=== PATIENT | female | born 1935 | race Caucasian/White ===

== ENCOUNTER → 2017-11-17 16:55 | Outpatient (CLI) | payer MEDICARE, OTHER, SELFPAY ==
[2017-11-17 17:57] LABS: Absolute Neutrophil Count 3.3 X10^3/uL (2.0-7.7); Basophil# 0.03 X10^3/uL; Basophil% 0.5 % (0-1); Eosinophil# 0.21 X10^3/uL; Eosinophils% 3.2 % (0-5); Hematocrit 39.1 % (37-47); Lymphocyte # 2.46 X10^3/ul (4.0); Lymphocyte % 37.3 % (19-41); Mean Corp Hgb Conc 33.2 g/gl (32-36); Mean Corpuscular Hgb 29.7 pg (27.0-32.0); Mean Corpuscular Volume 89.5 fL (81-99); Mean Platelet Vol. 11.9 fl (6.2-12.0); Monocyte# 0.57 X10^3/uL; Monocyte% 8.6 % (0-10); Neutrophil % 50.1 % (47-70); POSITIVE COUNT NO; POSITIVE DIFFERENTIAL NO; POSITIVE MORPHOLOGY NO; Platelet Count 186 K/mm3 (150-450); RBC Distribution Width CV 12.8 % (11.6-14.6); RBC Distribution Width SD 41.7 fl (35.1-43.9); Red Blood Count 4.37 M/mm3 (4.2-5.4); White Blood Count 6.6 K/mm3 (4.4-11.0)
[2017-11-17 18:02] LABS: Vitamin D,25 Hydroxy 16.6 ng/mL (29.95-100.01)
[2017-11-17 18:03] LABS: ALB/GLOB Ratio 0.9 RATIO (0.9-2.4); AST(SGOT) 20 U/L (15-37); Alanine Aminotransfer ALT/SGPT 25 U/L (13-56); Albumin, Serum 3.5 g/dL (3.2-5.0); Alkaline Phosphatase 92 U/L (45-117); Anion Gap 8 (5-15); BUN 27 mg/dL (7-18); Calcium,Total 9.1 mg/dL (8.5-10.1); Chloride 107 mmol/L (98-107); Creatinine, Serum 1.08 mg/dL (0.55-1.02); EST Glomerular Filtration Rate 52 mL/min (>60); Est Glom Filt Rate - Afr Amer 63 mL/min (>60); Globulin 3.8 g/dL (2.2-4.2); Glucose 93 mg/dL (74-106); Potassium 4.4 mmol/L (3.5-5.1); Protein, Total 7.3 g/dL (6.4-8.2); Sodium Level 142 mmol/L (136-145); Thyroid Stim Hormone (TSH) 2.39 uIU/mL (0.358-3.74)
== END ==
PROVIDERS: Family Provider Family Medicine Geriatric Medicine; PCP Family Medicine Geriatric Medicine; Visit Provider Family Medicine Geriatric Medicine
DX: I10 Essential (primary) hypertension (principal); E55.9 Vitamin D deficiency, unspecified
CPT/HCPCS: 36415; 80053; 82306; 84443; 85025

== ENCOUNTER → 2018-05-18 15:23 | Outpatient (CLI) | payer MEDICARE, OTHER, SELFPAY ==
[2018-05-18 17:49] LABS: Absolute Lymphocyte Count 3.67 X10^3/ul (0.83-4.51); Absolute Neutrophil Count 3.5 X10^3/uL (2.0-7.7); Basophil# 0.05 X10^3/uL; Basophil% 0.6 % (0-1); Eosinophil# 0.19 X10^3/uL; Eosinophils% 2.4 % (0-5); Hematocrit 41.6 % (37-47); Hemoglobin 13.6 g/dl (12.0-15.0); Lymphocyte # 3.67 X10^3/ul (4.0); Lymphocyte % 45.6 % (19-41); Mean Corp Hgb Conc 32.7 g/gl (32-36); Mean Corpuscular Hgb 29.5 pg (27.0-32.0); Mean Corpuscular Volume 90.2 fL (81-99); Mean Platelet Vol. 12.6 fl (6.2-12.0); Monocyte# 0.63 X10^3/uL; Monocyte% 7.8 % (0-10); Neutrophil % 43.5 % (47-70); Platelet Count 212 K/mm3 (150-450); RBC Distribution Width CV 12.7 % (11.6-14.6); RBC Distribution Width SD 41.4 fl (35.1-43.9); Red Blood Count 4.61 M/mm3 (4.2-5.4); White Blood Count 8.1 K/mm3 (4.4-11.0)
[2018-05-18 17:52] LABS: POSITIVE COUNT NO; POSITIVE DIFFERENTIAL NO; POSITIVE MORPHOLOGY NO
[2018-05-18 18:13] LABS: Vitamin D,25 Hydroxy 24.8 ng/mL (29.95-100.01)
[2018-05-18 19:07] LABS: AST(SGOT) 20 U/L (15-37); Alanine Aminotransfer ALT/SGPT 30 U/L (13-56); Albumin, Serum 3.6 g/dL (3.2-5.0); Alkaline Phosphatase 95 U/L (45-117); Anion Gap 10 (5-15); BUN 20 mg/dL (7-18); BUN/Creat Ratio 17.2 RATIO (10-20); Calcium,Total 8.9 mg/dL (8.5-10.1); Chloride 104 mmol/L (98-107); Creatinine, Serum 1.16 mg/dL (0.55-1.02); EST Glomerular Filtration Rate 48 mL/min (>60); Est Glom Filt Rate - Afr Amer 58 mL/min (>60); Globulin 3.6 g/dL (2.2-4.2); Glucose 86 mg/dL (74-106); Potassium 4.8 mmol/L (3.5-5.1); Protein, Total 7.2 g/dL (6.4-8.2); Sodium Level 139 mmol/L (136-145); Thyroid Stim Hormone (TSH) 2.13 uIU/mL (0.358-3.74)
== END ==
PROVIDERS: Family Provider Family Medicine Geriatric Medicine; PCP Family Medicine Geriatric Medicine; Visit Provider Family Medicine Geriatric Medicine
DX: E55.9 Vitamin D deficiency, unspecified (principal); I10 Essential (primary) hypertension
CPT/HCPCS: 36415; 80053; 82306; 84443; 85025

== ENCOUNTER → 2018-11-18 | Outpatient (CLI) | payer MEDICARE, OTHER, SELFPAY ==
[2018-11-18 16:44] LABS: Absolute Lymphocyte Count 2.65 X10^3/uL (0.83-4.51); Absolute Neutrophil Count 3.7 X10^3/uL (2.0-7.7); Basophil# 0.06 X10^3/uL; Basophil% 0.8 % (0-1); Eosinophil# 0.18 X10^3/uL; Eosinophils% 2.5 % (0-5); Hematocrit 40.7 % (37-47); Hemoglobin 13.3 g/dL (12.0-15.0); Lymphocyte # 2.65 X10^3/ul (4.0); Lymphocyte % 36.6 % (19-41); Mean Corp Hgb Conc 32.7 g/dL (32-36); Mean Corpuscular Hgb 28.9 pg (27.0-32.0); Mean Corpuscular Volume 88.5 fL (81-99); Mean Platelet Vol. 11.5 fl (6.2-12.0); Monocyte# 0.63 X10^3/uL; Monocyte% 8.7 % (0-10); NRBC Flagged by Analyzer 0 % (0-5); Neutrophil % 51.1 % (47-70); Platelet Count 208 K/mm3 (150-450); RBC Distribution Width CV 12.9 % (11.6-14.6); RBC Distribution Width SD 41.7 fl (35.1-43.9); White Blood Count 7.2 K/mm3 (4.4-11.0)
[2018-11-18 17:12] LABS: Vitamin D,25 Hydroxy 17.2 ng/mL (29.95-100.01)
[2018-11-18 17:13] LABS: ALB/GLOB Ratio 0.9 RATIO (0.9-2.4); AST(SGOT) 30 U/L (15-37); Alanine Aminotransfer ALT/SGPT 48 U/L (13-56); Albumin, Serum 3.3 g/dL (3.2-5.0); Alkaline Phosphatase 108 U/L (45-117); Anion Gap 5 (5-15); BUN 19 mg/dL (7-18); BUN/Creat Ratio 17.1 RATIO (10-20); Calcium,Total 8.8 mg/dL (8.5-10.1); Chloride 105 mmol/L (98-107); Creatinine, Serum 1.11 mg/dL (0.55-1.02); EST Glomerular Filtration Rate 50 mL/min (>60); Est Glom Filt Rate - Afr Amer 60 mL/min (>60); Globulin 3.8 g/dL (2.2-4.2); Glucose 90 mg/dL (74-106); Potassium 4.4 mmol/L (3.5-5.1); Protein, Total 7.1 g/dL (6.4-8.2); Sodium Level 135 mmol/L (136-145); Thyroid Stim Hormone (TSH) 3.48 uIU/mL (0.358-3.74)
== END | disposition home or self-care (01) ==
LOC: POLAB3 13:17
PROVIDERS: Family Provider Family Medicine Geriatric Medicine; PCP Family Medicine Geriatric Medicine; Visit Provider Family Medicine Geriatric Medicine
DX: E55.9 Vitamin D deficiency, unspecified (principal); I10 Essential (primary) hypertension
CPT/HCPCS: 36415; 80053; 82306; 84443; 85025

== ENCOUNTER 2019-01-11 12:46 | Emergency (ER) | payer MEDICARE, OTHER, SELFPAY ==
[2019-01-11 12:46] VITALS: BP 199/89; PULSE 79; RESP 16; TEMP 36.6; O2SAT 95; BMI 37.5
--- NOTE | 2019-01-11 13:42 | ED.VISSUMM ---
- ER Visit Summary Date of Service: 01/11/19 Chief Complaint: Hand laceration History of Present Illness: The patient is a 83 F who presents the emergency department with a left hand laceration. Patient was using electric saw to cut shrubbery on front of her house. She touched the blade while the blades are still running. She notes lacerations to the left ring finger and left middle finger. Last tetanus shot was in the last 5 years Physical Examination: Afebrile vital signs stable There is 2 lacerations to the left index finger. One is 1 cm the other is 2 cm. They are actively bleeding. Neurovascular intact distal. Tendon function appears normal There is a T-shaped 1 cm laceration. To the left middle finger over the distal phalanx. There is no active bleeding. Neurovascular intact tendon function normal. Emergency Department Course and Treatment: Wounds were locally anesthetized using 1% lidocaine with epinephrine. Only small amount was needed less than 1 cc to anesthetize the area. The index finger had a total of 6 simple interrupted Ethilon sutures placed. The middle finger had a total of 2 simple interrupted Ethilon sutures placed. Wound care discussed with patient. Follow-up 7 to 10 days for suture removal Impression: 1. Left middle finger 1 cm laceration with repair 2. Left index finger 2 cm laceration with repair 3. Left index finger laceration 1 cm with repair This note was generated with [employer] dictation software. It may contain incorrect words, spelling, and punctuation that were not noted in review of the chart prior to signing ED Disposition - Plan for ED Patient: Disposition: Home or Assisted Living Instructions: LACERATION, Hand Referrals: Neville Serrano Chi, MD [Primary Care Provider] - 7 Days for suture removal
[2019-01-11 13:58] VITALS: RESP 16
== END 2019-01-11 13:59 | disposition home or self-care (01) ==
PROVIDERS: Emergency Provider Emergency Medicine; Family Provider Family Medicine Geriatric Medicine; PCP Family Medicine Geriatric Medicine
DX: S61.213A Laceration without foreign body of left middle finger without damage to nail, initial encounter (principal); S61.211A Laceration without foreign body of left index finger without damage to nail, initial encounter; I10 Essential (primary) hypertension; E78.00 Pure hypercholesterolemia, unspecified; Z79.899 Other long term (current) drug therapy; W29.3XXA Contact with powered garden and outdoor hand tools and machinery, initial encounter; Y93.H2 Activity, gardening and landscaping; Y92.007 Garden or yard of unspecified non-institutional (private) residence as the place of occurrence of the external cause; Y99.8 Other external cause status
CPT/HCPCS: 12002; 99284

== ENCOUNTER → 2019-05-19 13:35 | Outpatient (CLI) | payer MEDICARE, OTHER, SELFPAY ==
[2019-05-19 16:31] LABS: Absolute Lymphocyte Count 2.63 X10^3/uL (0.83-4.51); Absolute Neutrophil Count 4.7 X10^3/uL (2.0-7.7); Basophil# 0.08 X10^3/uL; Eosinophils% 2.4 % (0-5); Hematocrit 43.3 % (37-47); Hemoglobin 13.9 g/dL (12.0-15.0); Lymphocyte # 2.63 X10^3/ul (4.0); Lymphocyte % 32.2 % (19-41); Mean Corp Hgb Conc 32.1 g/dL (32-36); Mean Corpuscular Hgb 29.3 pg (27.0-32.0); Mean Corpuscular Volume 91.2 fL (81-99); Mean Platelet Vol. 11.7 fl (6.2-12.0); Monocyte# 0.59 X10^3/uL; Monocyte% 7.2 % (0-10); NRBC Flagged by Analyzer 0 % (0-5); Neutrophil # 4.65 X10^3/uL (2.7-7.7); Platelet Count 236 K/mm3 (150-450); RBC Distribution Width CV 12.6 % (11.6-14.6); RBC Distribution Width SD 41.6 fl (35.1-43.9); Red Blood Count 4.75 M/mm3 (4.2-5.4); White Blood Count 8.2 K/mm3 (4.4-11.0)
[2019-05-19 16:44] LABS: Vitamin D,25 Hydroxy 19.9 ng/mL (29.95-100.01)
[2019-05-19 16:51] LABS: AST(SGOT) 11 U/L (15-37); Alanine Aminotransfer ALT/SGPT 24 U/L (13-56); Albumin, Serum 3.6 g/dL (3.2-5.0); Alkaline Phosphatase 98 U/L (45-117); Anion Gap 5 (5-15); BUN 29 mg/dL (7-18); BUN/Creat Ratio 21.2 RATIO (10-20); Calcium,Total 9.2 mg/dL (8.5-10.1); Chloride 107 mmol/L (98-107); Creatinine, Serum 1.37 mg/dL (0.55-1.02); EST Glomerular Filtration Rate 39 mL/min (>60); Est Glom Filt Rate - Afr Amer 47 mL/min (>60); Globulin 3.7 g/dL (2.2-4.2); Glucose 103 mg/dL (74-106); Potassium 4.7 mmol/L (3.5-5.1); Protein, Total 7.3 g/dL (6.4-8.2); Sodium Level 136 mmol/L (136-145); Thyroid Stim Hormone (TSH) 3.04 uIU/mL (0.358-3.74)
== END ==
PROVIDERS: Family Provider Family Medicine Geriatric Medicine; PCP Family Medicine Geriatric Medicine; Visit Provider Family Medicine Geriatric Medicine
DX: I10 Essential (primary) hypertension (principal); E55.9 Vitamin D deficiency, unspecified
CPT/HCPCS: 36415; 80053; 82306; 84443; 85025

== ENCOUNTER → 2019-11-24 14:34 | Outpatient (CLI) | payer MEDICARE, OTHER, SELFPAY ==
[2019-11-24 14:50] LABS: Absolute Lymphocyte Count 2.89 X10^3/uL (0.83-4.51); Absolute Neutrophil Count 3.2 X10^3/uL (2.0-7.7); Basophil# 0.07 X10^3/uL; Eosinophil# 0.25 X10^3/uL; Eosinophils% 3.5 % (0-5); Hematocrit 40.4 % (37-47); Hemoglobin 12.7 g/dL (12.0-15.0); Lymphocyte # 2.89 X10^3/ul (4.0); Lymphocyte % 40.4 % (19-41); Mean Corp Hgb Conc 31.4 g/dL (32-36); Mean Corpuscular Hgb 29.3 pg (27.0-32.0); Mean Corpuscular Volume 93.3 fL (81-99); Mean Platelet Vol. 12.4 fl (6.2-12.0); Monocyte# 0.72 X10^3/uL; Monocyte% 10.1 % (0-10); NRBC Flagged by Analyzer 0 % (0-5); Neutrophil # 3.21 X10^3/uL (2.7-7.7); Neutrophil % 44.9 % (47-70); Platelet Count 208 K/mm3 (150-450); RBC Distribution Width CV 13.4 % (11.6-14.6); RBC Distribution Width SD 45.4 fl (35.1-43.9); Red Blood Count 4.33 M/mm3 (4.2-5.4); White Blood Count 7.2 K/mm3 (4.4-11.0)
[2019-11-24 15:14] LABS: Vitamin D,25 Hydroxy 21.5 ng/mL
[2019-11-24 15:20] LABS: ALB/GLOB Ratio 0.9 RATIO (0.9-2.4); AST(SGOT) 19 U/L (15-37); Alanine Aminotransfer ALT/SGPT 36 U/L (13-56); Albumin, Serum 3.2 g/dL (3.2-5.0); Alkaline Phosphatase 80 U/L (45-117); Anion Gap 4 (5-15); BUN 20 mg/dL (7-18); BUN/Creat Ratio 18.5 RATIO (10-20); Calcium,Total 8.4 mg/dL (8.5-10.1); Chloride 109 mmol/L (98-107); Creatinine, Serum 1.08 mg/dL (0.55-1.02); EST Glomerular Filtration Rate 51 mL/min (>60); Est Glom Filt Rate - Afr Amer 62 mL/min (>60); Globulin 3.6 g/dL (2.2-4.2); Glucose 95 mg/dL (74-106); Potassium 4.8 mmol/L (3.5-5.1); Protein, Total 6.8 g/dL (6.4-8.2); Sodium Level 139 mmol/L (136-145); Thyroid Stim Hormone (TSH) 3.47 uIU/mL (0.358-3.74)
== END ==
PROVIDERS: PCP Family Medicine Geriatric Medicine; Visit Provider Family Medicine Geriatric Medicine
DX: E55.9 Vitamin D deficiency, unspecified (principal); I10 Essential (primary) hypertension
CPT/HCPCS: 36415; 80053; 82306; 84443; 85025

== ENCOUNTER 2019-12-02 07:07 | Emergency (ER) | payer MEDICARE, OTHER, SELFPAY ==
[2019-12-02 07:08] VITALS: BP 164/88; PULSE 92; RESP 16; TEMP 36.3; O2SAT 98; BMI 37.0
--- NOTE | 2019-12-02 07:27 | ED.DCSUM_ITS ---
History of Present Illness Chief Complaint: Allergic Reaction Informant: Patient Narrative: Patient is an 83-year-old female with a past medical history of hypothyroidism, hypertension who presents to the emergency department for rash over her face. There has been swelling over the left side as well. This started 3 days ago. It has not progressed or gotten better. She states it is about the same as when it started. She denies new exposures but has been working out in the garden. No new medication adjustments. She cannot think of anything that has been different. Any systemic symptoms including any fever/chills or nausea/vomiting. She has been trying poison alem cream over it as the rash has been itchy. She also describes as burning. She has been scratching at it and there are a few open spots with seepage. She denies any oral involvement. No inner ear swelling sensation. No ear pain or tinnitus. Denies any headache or stiff neck. No other rash on anywhere else on her body. She has never had this happen before. Past Medical History - Allergies and Home Meds Allergies/Adverse Reactions: Allergies No Known Allergies Allergy (Verified 12/02/19 07:10) Primary Care Physician: Neville Serrano Chi, MD [Primary Care Provider] - 2 Days Prior records reviewed: Yes Past Medical History: - - Hypertension, hypothyroidism Smoking Status: Never smoker Review of Systems General: Denies: Chills, Fever, Sweats Eyes: Denies: Visual changes - bilaterally, Diplopia ENT: Denies: Bilateral ear pain, Rhinorrhea, Sore throat Cardiovascular: Denies: Chest pain, Palpitations Respiratory: Denies: Dyspnea, Cough, Dyspnea on exertion Gastrointestinal: Denies: Abdominal pain, Nausea, Vomiting, Diarrhea Genitourinary: Denies: Dysuria, Hematuria, Frequency Musculoskeletal: Denies: Back pain, Extremity Pain Skin: Reports: Rash. Denies: Wounds Neurological: Denies: Headache, Weakness, Numbness Physical Exam Vital Signs/Narrative: Vital Signs Temp Pulse Resp BP Pulse Ox 12/02/19 07:08 97.4 F L 92 16 164/88 H 98 General: Well nourished, Well developed, No Acute Distress Head: Normocephalic, Atraumatic Eyes: Perrl, EOMI ENT: Moist mucous membranes, No rhinorrhea, TM's clear Neck: Supple, Nontender Cardiovascular: Regular rate, Regular rhythm, No murmurs Respiratory: No distress, CTA bilaterally, Chest nontender Abdomen: Soft, Nontender, Nondistended Back: Nontender, Normal Inspection Extremities: Nontender, No edema Skin: Normal color, No rash, - - Erythematous raised rash extending over left s corrine of the face. This does extend over the midline to the right side of the forehead as well. No mucous membrane involvement. There are some excoriations with seepage present. This is warm to the touch. Not tender to touch. Neurological: Alert, Oriented x3, Cranial nerves II-XII grossly intact, Normal Strength, Normal Sensation Psychological: Normal affect, Normal Mood Diagnostic/Tx/Re-eval - Medical Decision Making Patient presents to the emerge department for itching, swelling rash over her face. She has been working in the garden but does not know of any new exposures. Since this is not painful and is itchy I do believe that this is inflammatory and possible allergic reaction. Will treat with oral prednisone. Obvious cellulitis present. There are the excoriations with the seepage so we will put on a topical antibiotic ointment. She needs to have close follow-up with her PCP and she does seem reliable. I did discuss strict return precautions including any oral involvement, significant spreading or developing any systemic symptoms. Patient given first dose of prednisone here in the emergency department. Will discharge home in stable condition. She understands and is agreeable with this plan. ED Disposition - Plan for ED Patient: Disposition: Home or Assisted Living Diagnosis: Allergic rash present on examination Prescriptions: Mupirocin [Bactroban] 1 applic TOPICAL TID 7 Days #1 tube Prescription Printed Prednisone [Deltasone] 40 mg PO DAILY 4 Days #8 tab Prescription Printed Referrals: Neville Serrano Chi, MD [Primary Care Provider] - 2 Days
[2019-12-02] MEDS: predniSONE 20 MG Tablet 40 MG PO (07:38)
== END 2019-12-02 07:47 | disposition home or self-care (01) ==
LOC: ED 07:45
PROVIDERS: Emergency Provider Emergency Medicine; PCP Family Medicine Geriatric Medicine
DX: T78.40XA Allergy, unspecified, initial encounter (principal); E03.9 Hypothyroidism, unspecified; I10 Essential (primary) hypertension
CPT/HCPCS: 99282

== ENCOUNTER → 2020-05-29 13:29 | Outpatient (CLI) | payer MEDICARE, OTHER, SELFPAY ==
[2020-05-29 16:47] LABS: Absolute Lymphocyte Count 2.81 X10^3/uL (0.83-4.51); Basophil# 0.06 X10^3/uL; Basophil% 0.8 % (0-1); Eosinophil# 0.18 X10^3/uL; Eosinophils% 2.3 % (0-5); Hematocrit 41.7 % (37-47); Hemoglobin 13.2 g/dL (12.0-15.0); Lymphocyte # 2.81 X10^3/ul (4.0); Lymphocyte % 36.7 % (19-41); Mean Corp Hgb Conc 31.7 g/dL (32-36); Mean Corpuscular Volume 91.6 fL (81-99); Monocyte# 0.56 X10^3/uL; Monocyte% 7.3 % (0-10); NRBC Flagged by Analyzer 0 % (0-5); Neutrophil # 4.04 X10^3/uL (2.7-7.7); Neutrophil % 52.8 % (47-70); Platelet Count 205 K/mm3 (150-450); RBC Distribution Width SD 40.4 fl (35.1-43.9); Red Blood Count 4.55 M/mm3 (4.2-5.4); White Blood Count 7.7 K/mm3 (4.4-11.0)
[2020-05-29 17:00] LABS: Vitamin D,25 Hydroxy 32.1 ng/mL
[2020-05-29 17:07] LABS: ALB/GLOB Ratio 0.9 RATIO (0.9-2.4); AST(SGOT) 12 U/L (15-37); Alanine Aminotransfer ALT/SGPT 18 U/L (13-56); Albumin, Serum 3.4 g/dL (3.2-5.0); Alkaline Phosphatase 75 U/L (45-117); Anion Gap 7 (5-15); BUN 19 mg/dL (7-18); BUN/Creat Ratio 15.8 RATIO (10-20); Chloride 106 mmol/L (98-107); EST Glomerular Filtration Rate 45 mL/min (>60); Est Glom Filt Rate - Afr Amer 55 mL/min (>60); Globulin 3.7 g/dL (2.2-4.2); Glucose 103 mg/dL (74-106); Potassium 4.3 mmol/L (3.5-5.1); Protein, Total 7.1 g/dL (6.4-8.2); Sodium Level 139 mmol/L (136-145); Thyroid Stim Hormone (TSH) 0.86 uIU/mL (0.358-3.74)
== END ==
PROVIDERS: PCP Family Medicine Geriatric Medicine; Visit Provider Family Medicine Geriatric Medicine
DX: E55.9 Vitamin D deficiency, unspecified (principal); I10 Essential (primary) hypertension
CPT/HCPCS: 36415; 80053; 82306; 84443; 85025

== ENCOUNTER 2020-06-09 09:24 | Outpatient (RCR) | payer MEDICARE, OTHER, SELFPAY | END 2020-06-09 23:59 | LOC: IMMUN 09:24 | PROVIDERS: PCP Family Medicine Geriatric Medicine; Visit Provider Family Medicine | DX: Z23 Encounter for immunization (principal) | CPT/HCPCS: 0011A; 0012A ==

== ENCOUNTER → 2020-10-03 14:54 | Outpatient (CLI) | payer MEDICARE, OTHER, SELFPAY ==
--- NOTE | 2020-10-03 15:02 | RAD_ITS ---
STUDY: X-RAY - LEFT KNEE REASON FOR EXAM: Female, 84 years old. KNEE PAIN TECHNIQUE: 4 view(s) of the knee. COMPARISON: None. FINDINGS: Normal visualized distal femur. Normal visualized proximal tibia and fibula. Normal proximal tibiofibular articulation. There is mild degenerative arthrosis of the medial femorotibial compartment. Normal lateral femorotibial compartment. Normal patellofemoral articulation. Tiny joint effusion. RAD/Knee 4 or More Views IMPRESSION: Degenerative arthrosis. Tiny joint effusion. Electronically Signed: Louis Felipe MD at 15:22 EDT , Service support ,
== END ==
PROVIDERS: PCP Family Medicine Geriatric Medicine; Referring Provider Family Medicine Geriatric Medicine; Visit Provider Family Medicine Geriatric Medicine
DX: M25.569 Pain in unspecified knee (principal)
CPT/HCPCS: 73564

== ENCOUNTER → 2020-11-27 13:19 | Outpatient (CLI) | payer MEDICARE, OTHER, SELFPAY ==
[2020-11-27 14:20] LABS: Absolute Lymphocyte Count 3.02 X10^3/uL (0.83-4.51); Basophil# 0.05 X10^3/uL; Basophil% 0.6 % (0-1); Eosinophil# 0.18 X10^3/uL; Eosinophils% 2.3 % (0-5); Hematocrit 37.2 % (37-47); Hemoglobin 12.2 g/dL (12.0-15.0); Lymphocyte # 3.02 X10^3/ul (0.83-4.51); Lymphocyte % 38.4 % (19-41); Mean Corp Hgb Conc 32.8 g/dL (32-36); Mean Corpuscular Hgb 29.6 pg (27.0-32.0); Mean Corpuscular Volume 90.3 fL (81-99); Monocyte% 7.6 % (0-10); NRBC Flagged by Analyzer 0 % (0-5); Neutrophil # 3.99 X10^3/uL (2.7-7.7); Neutrophil % 50.8 % (47-70); Platelet Count 251 K/mm3 (150-450); RBC Distribution Width CV 13.2 % (11.6-14.6); RBC Distribution Width SD 43.6 fl (35.1-43.9); Red Blood Count 4.12 M/mm3 (4.2-5.4); White Blood Count 7.9 K/mm3 (4.4-11.0)
[2020-11-27 14:38] LABS: Vitamin D,25 Hydroxy 23.7 ng/mL
[2020-11-27 14:43] LABS: ALB/GLOB Ratio 0.9 RATIO (0.9-2.4); AST(SGOT) 13 U/L (15-37); Alanine Aminotransfer ALT/SGPT 23 U/L (13-56); Albumin, Serum 3.3 g/dL (3.2-5.0); Alkaline Phosphatase 69 U/L (45-117); Anion Gap 7 (5-15); BUN 25 mg/dL (7-18); BUN/Creat Ratio 24.3 RATIO (10-20); Calcium,Total 8.6 mg/dL (8.5-10.1); Chloride 106 mmol/L (98-107); Creatinine, Serum 1.03 mg/dL (0.55-1.02); EST Glomerular Filtration Rate 54 mL/min (>60); Est Glom Filt Rate - Afr Amer 66 mL/min (>60); Globulin 3.6 g/dL (2.2-4.2); Glucose 131 mg/dL (74-106); Potassium 3.9 mmol/L (3.5-5.1); Protein, Total 6.9 g/dL (6.4-8.2); Sodium Level 139 mmol/L (136-145); Thyroid Stim Hormone (TSH) 2.81 uIU/mL (0.358-3.74)
== END ==
PROVIDERS: PCP Family Medicine Geriatric Medicine; Visit Provider Family Medicine Geriatric Medicine
DX: E55.9 Vitamin D deficiency, unspecified (principal); I10 Essential (primary) hypertension
CPT/HCPCS: 36415; 80053; 82306; 84443; 85025

== ENCOUNTER 2021-07-02 15:18 | Outpatient (CLI) | payer MEDICARE, OTHER, SELFPAY ==
[2021-07-02 17:21] LABS: Absolute Lymphocyte Count 2.46 X10^3/uL (0.83-4.51); Absolute Neutrophil Count 3.7 X10^3/uL (2.0-7.7); Basophil# 0.05 X10^3/uL; Basophil% 0.7 % (0-1); Eosinophil# 0.19 X10^3/uL; Eosinophils% 2.7 % (0-5); Hematocrit 40.7 % (37-47); Lymphocyte # 2.46 X10^3/ul (0.83-4.51); Lymphocyte % 35.2 % (19-41); Mean Corp Hgb Conc 34.4 g/dL (32-36); Mean Corpuscular Hgb 30.2 pg (27.0-32.0); Mean Corpuscular Volume 87.9 fL (81-99); Mean Platelet Vol. 11.8 fl (6.2-12.0); Monocyte# 0.56 X10^3/uL; NRBC Flagged by Analyzer 0 % (0-5); Neutrophil # 3.72 X10^3/uL (2.7-7.7); Neutrophil % 53.3 % (47-70); Platelet Count 236 K/mm3 (150-450); RBC Distribution Width CV 13.2 % (11.6-14.6); RBC Distribution Width SD 42.7 fl (35.1-43.9); Red Blood Count 4.63 M/mm3 (4.2-5.4)
[2021-07-02 17:47] LABS: ALB/GLOB Ratio 0.9 RATIO (0.9-2.4); AST(SGOT) 17 U/L (15-37); Alanine Aminotransfer ALT/SGPT 29 U/L (13-56); Albumin, Serum 3.3 g/dL (3.2-5.0); Alkaline Phosphatase 89 U/L (45-117); Anion Gap 5 (5-15); BUN 27 mg/dL (7-18); Calcium,Total 9.1 mg/dL (8.5-10.1); Chloride 108 mmol/L (98-107); Creatinine, Serum 1.23 mg/dL (0.55-1.02); EST Glomerular Filtration Rate 44 mL/min (>60); Est Glom Filt Rate - Afr Amer 53 mL/min (>60); Globulin 3.8 g/dL (2.2-4.2); Glucose 118 mg/dL (74-106); Potassium 3.8 mmol/L (3.5-5.1); Protein, Total 7.1 g/dL (6.4-8.2); Sodium Level 138 mmol/L (136-145); Thyroid Stim Hormone (TSH) 4.78 uIU/mL (0.358-3.74)
[2021-07-02 18:16] LABS: Vitamin D,25 Hydroxy 20.8 ng/mL
== END 2021-07-02 23:59 | disposition home or self-care (01) ==
LOC: POLAB3 15:20
PROVIDERS: PCP Family Medicine Geriatric Medicine; Visit Provider Family Medicine Geriatric Medicine
DX: E55.9 Vitamin D deficiency, unspecified (principal); I10 Essential (primary) hypertension
CPT/HCPCS: 36415; 80053; 82306; 84443; 85025

== ENCOUNTER → 2021-11-29 | Outpatient (CLI) | payer MEDICARE, OTHER, SELFPAY ==
[2021-11-29 15:06] LABS: Absolute Lymphocyte Count 3.35 X10^3/uL (0.83-4.51); Absolute Neutrophil Count 3.5 X10^3/uL (2.0-7.7); Basophil# 0.07 X10^3/uL; Basophil% 0.9 % (0-1); Eosinophil# 0.24 X10^3/uL; Hematocrit 38.9 % (37-47); Hemoglobin 13.1 g/dL (12.0-15.0); Lymphocyte # 3.35 X10^3/ul (0.83-4.51); Lymphocyte % 42.4 % (19-41); Mean Corp Hgb Conc 33.7 g/dL (32-36); Mean Corpuscular Hgb 29.7 pg (27.0-32.0); Mean Corpuscular Volume 88.2 fL (81-99); Mean Platelet Vol. 11.8 fl (6.2-12.0); Monocyte% 8.9 % (0-10); NRBC Flagged by Analyzer 0 % (0-5); Neutrophil # 3.51 X10^3/uL (2.7-7.7); Neutrophil % 44.4 % (47-70); Platelet Count 207 K/mm3 (150-450); RBC Distribution Width CV 12.5 % (11.6-14.6); RBC Distribution Width SD 40.5 fl (35.1-43.9); Red Blood Count 4.41 M/mm3 (4.2-5.4); White Blood Count 7.9 K/mm3 (4.4-11.0)
[2021-11-29 15:24] LABS: Vitamin D,25 Hydroxy 21.3 ng/mL
[2021-11-29 15:53] LABS: ALB/GLOB Ratio 0.9 RATIO (0.9-2.4); AST(SGOT) 28 U/L (15-37); Alanine Aminotransfer ALT/SGPT 21 U/L (13-56); Albumin, Serum 3.1 g/dL (3.2-5.0); Alkaline Phosphatase 82 U/L (45-117); Anion Gap 6 (5-15); BUN 27 mg/dL (7-18); BUN/Creat Ratio 22.9 RATIO (10-20); Calcium,Total 8.5 mg/dL (8.5-10.1); Chloride 111 mmol/L (98-107); Creatinine, Serum 1.18 mg/dL (0.55-1.02); EST Glomerular Filtration Rate 46 mL/min (>60); Est Glom Filt Rate - Afr Amer 56 mL/min (>60); Globulin 3.6 g/dL (2.2-4.2); Glucose 102 mg/dL (74-106); Potassium 4.5 mmol/L (3.5-5.1); Protein, Total 6.7 g/dL (6.4-8.2); Sodium Level 139 mmol/L (136-145); Thyroid Stim Hormone (TSH) 1.73 uIU/mL (0.358-3.74)
== END | disposition home or self-care (01) ==
PROVIDERS: PCP Family Medicine Geriatric Medicine; Visit Provider Family Medicine Geriatric Medicine
DX: E55.9 Vitamin D deficiency, unspecified (principal); I10 Essential (primary) hypertension
CPT/HCPCS: 36415; 80053; 82306; 84443; 85025

== ENCOUNTER → 2022-06-04 | Outpatient (CLI) | payer MEDICARE, OTHER, SELFPAY ==
[2022-06-04 17:42] LABS: Absolute Lymphocyte Count 2.75 X10^3/uL (0.83-4.51); Absolute Neutrophil Count 4.4 X10^3/uL (2.0-7.7); Basophil# 0.07 X10^3/uL; Basophil% 0.9 % (0-1); Eosinophil# 0.17 X10^3/uL; Eosinophils% 2.1 % (0-5); Hematocrit 43.1 % (37-47); Hemoglobin 13.7 g/dL (12.0-15.0); Lymphocyte # 2.75 X10^3/ul (0.83-4.51); Lymphocyte % 34.3 % (19-41); Mean Corp Hgb Conc 31.8 g/dL (32-36); Mean Corpuscular Hgb 28.9 pg (27.0-32.0); Mean Corpuscular Volume 90.9 fL (81-99); Mean Platelet Vol. 12.8 fl (6.2-12.0); Monocyte# 0.65 X10^3/uL; Monocyte% 8.1 % (0-10); NRBC Flagged by Analyzer 0 % (0-5); Neutrophil # 4.36 X10^3/uL (2.7-7.7); Neutrophil % 54.4 % (47-70); Platelet Count 221 K/mm3 (150-450); RBC Distribution Width CV 12.6 % (11.6-14.6); RBC Distribution Width SD 41.8 fl (35.1-43.9); Red Blood Count 4.74 M/mm3 (4.2-5.4)
[2022-06-04 18:01] LABS: AST(SGOT) 19 U/L (15-37); Alanine Aminotransfer ALT/SGPT 20 U/L (13-56); Albumin, Serum 3.5 g/dL (3.2-5.0); Alkaline Phosphatase 82 U/L (45-117); Anion Gap 9 (5-15); BUN 29 mg/dL (7-18); BUN/Creat Ratio 16.6 RATIO (10-20); Chloride 107 mmol/L (98-107); Creatinine, Serum 1.75 mg/dL (0.55-1.02); EST Glomerular Filtration Rate 29 mL/min (>60); Est Glom Filt Rate - Afr Amer 35 mL/min (>60); Globulin 3.6 g/dL (2.2-4.2); Glucose 94 mg/dL (74-106); Potassium 4.3 mmol/L (3.5-5.1); Protein, Total 7.1 g/dL (6.4-8.2); Sodium Level 140 mmol/L (136-145); Vitamin D,25 Hydroxy 18.4 ng/mL
[2022-06-07 11:37] LABS: Thyroid Stim Hormone (TSH) 1.79 uIU/mL (0.358-3.74)
== END | disposition home or self-care (01) ==
LOC: POLAB3 14:29
PROVIDERS: PCP Family Medicine Geriatric Medicine; Visit Provider Family Medicine Geriatric Medicine
DX: E55.9 Vitamin D deficiency, unspecified (principal); I10 Essential (primary) hypertension
CPT/HCPCS: 36415; 80053; 82306; 84443; 85025

== ENCOUNTER → 2022-06-26 | Outpatient (CLI) | payer MEDICARE, OTHER, SELFPAY ==
--- NOTE | 2022-06-26 15:16 | US_ITS ---
STUDY: RENAL ULTRASOUND - COMPLETE REASON FOR EXAM: Female, 86 years old. Acute kidney disease. TECHNIQUE: Ultrasound evaluation of the kidneys was performed with real-time and static garcia-scale imaging. COMPARISON: CT of the abdomen and pelvis, October 07, 2017. FINDINGS: RIGHT KIDNEY: Normal location of the right kidney, which is normal in size. The right kidney measures 9.7 cm. There is a normal cortex of the right kidney. The renal cortex measures 1.0 cm. There is no right renal mass or cyst. There are no right renal calculi. There is no right hydronephrosis. DISTAL RIGHT URETER: There is non-visualization of the distal right ureter. There is no demonstrated right ureterovesical junction calculus. There is a visualized right ureteral jet. LEFT KIDNEY: Normal location of the left kidney, which is normal in size. The left kidney measures 9.6 cm. There is a normal cortex of the left kidney. The renal cortex measures 1.3 cm. There is no left renal mass or cyst. There are no left renal calculi. There is no left hydronephrosis. DISTAL LEFT URETER: There is non-visualization of the distal left ureter. There is no demonstrated left ureterovesical junction calculus. There is a visualized left ureteral jet. BLADDER: The distended urinary bladder has a volume of 266 ml. There is a normal wall thickness of the distended urinary bladder. There is no demonstrated mass within the urinary bladder. There are no demonstrated bladder calculi. US/Kidney and Bladder IMPRESSION: Normal ultrasound of the kidneys and urinary bladder. Electronically Signed: Rashad Burr DO at 17:26 EST ,
== END | disposition home or self-care (01) ==
PROVIDERS: PCP Family Medicine Geriatric Medicine; Referring Provider Internal Medicine Nephrology; Visit Provider Internal Medicine Nephrology
DX: N18.32 Chronic kidney disease, stage 3b (principal)
CPT/HCPCS: 76770

== ENCOUNTER 2022-08-11 13:11 | Inpatient (IN) | payer MEDICARE, OTHER, SELFPAY ==
[2022-08-11] VITALS (8 sets, daily range): BP systolic 128–177; BP diastolic 49–80; PULSE 67–76; RESP 18–24; TEMP 36.6–37.6; O2SAT 89–96; BMI 38.4; BMI 36.1
--- NOTE | 2022-08-11 13:22 | RAD_ITS ---
STUDY: X-RAY CHEST REASON FOR EXAM: Female, 86 years old. Fever and cough TECHNIQUE: Single AP portable view of the chest. COMPARISON: 07/20/2015 FINDINGS: EKG leads overlie the chest The lungs are clear and expanded. There is no demonstrated pleural abnormality. Normal size heart. Normal mediastinum and kymberly. Normal visualized pulmonary arteries. Normal visualized aortic arch and descending thoracic aorta. There are diffuse degenerative changes of the visualized thoracic spine. Normal visualized ribs, clavicles, and shoulders. There is no demonstrated abnormality of the visualized soft tissue structures of the upper abdomen. RAD/Chest 1 View (Portable) IMPRESSION: No acute pulmonary process Electronically Signed: Yair Rousseau MD at 14:06 EDT ,
--- NOTE | 2022-08-11 13:23 | ED.VIS.DYS ---
HPI History of Present Illness Chief Complaint: Shortness of Breath Detail of Chief Complaint: Shortness of breath Informant: patient Narrative Narrative: Patient presents with shortness of breath that started 2 nights ago. Patient states that it came on suddenly when she was getting into bed. Denies any chest pain. Denies fever or cough. She had some sinus drainage. She had diarrhea yesterday and today so she took some Imodium. She has history of IBS. Denies sick contacts otherwise. Denies recent travel or surgery. No history of COPD or emphysema. PFSH PFSH Home Medications atenolol 50 mg tablet (Tenormin) 50 mg PO DAILY 07/20/15 [History Last Taken Unknown] levothyroxine 25 mcg tablet 88 mcg PO DAILY 07/20/15 [History Last Taken Unknown] amlodipine 5 mg tablet 5 mg PO DAILY 08/11/22 [History Last Taken Unknown] paroxetine HCl 40 mg tablet 40 mg PO DAILY 08/11/22 [History Last Taken Unknown] Allergy/AdvReac Type Severity Reaction Status Date / Time No Known Allergies Allergy Verified 12/02/19 07:10 Social History Smoking Status: Never smoker ROS ROS ED Review of Systems ROS Unobtainable: other Constitutional Constitutional ED: Reports lethargy; Denies chills, fever(s), sweats or weight loss Eyes Eyes: Denies blurry vision, change in vision or diplopia ENT ENT ED: Reports other Details: Sinus drainage ; Denies rhinorrhea or sore throat Cardiovascular Cardiovascular: Denies chest pain, orthopnea or racing heartbeat Respiratory/Chest Respiratory/Chest: Reports dyspnea and dyspnea on exertion; Denies cough, orthopnea or sputum Gastrointestinal Gastrointestinal: Reports diarrhea; Denies abdominal pain, nausea or vomiting Genitourinary Genitourinary ED: Denies dysuria, hematuria or urinary frequency Musculoskeletal Musculoskeletal: Denies arthralgias, back pain, myalgias or neck pain Integumentary Denies abscess, Abrasions or rash Neurologic Neurologic: Denies headache(s) or weakness Psychiatric Psychiatric: Denies anxiety, depression or suicidal thoughts Endocrine Endocrinology: Denies polydipsia, polyphagia or polyuria Hematologic/Lymphatic Hematologic/Lymphatic: Denies easy bleeding, easy bruising or lymphadenopathy Allergic/Immunologic Allergic/Immunologic ED: Denies mouth swelling, tongue swelling or urticaria EXAM Physical Exam Const Vital Signs: 08/11/22 13:12 08/11/22 13:12 08/11/22 13:42 Temperature 98.4 F 98.4 F Temperature Source Temporal Temporal Pulse Rate 76 76 Respiratory Rate 18 18 Respiratory Effort Normal Non-Labored Respiratory Depth Normal Respiratory Pattern Normal Blood Pressure 166/66 H 166/66 H Blood Pressure Mean 99 99 Pulse Ox 89 94 Oxygen Delivery Method Room Air Room Air Room Air 08/11/22 14:12 Temperature Temperature Source Pulse Rate 69 Respiratory Rate 18 Respiratory Effort Respiratory Depth Respiratory Pattern Blood Pressure 156/80 H Blood Pressure Mean 105 Pulse Ox 95 Oxygen Delivery Method Room Air Positive well nourished and well developed General Appearance ED: well developed and NAD HEENT Reports TM's clear and moist mucous membranes normocephalic and atraumatic; Negative for trauma or tenderness Tympanic Membrane ED: Yes TM's clear Eyes PERRL and EOMs intact bilaterally General Eye ED: Negative for pale conjunctiva or scleral icterus Neck no lymphadenopathy, supple and no JVD General: Negative for tenderness Chest Wall inspection of chest normal and palpation of chest normal Chest: Negative for tenderness Resp normal respiratory effort and clear to auscultation bilaterally Effort and Inspection: Negative for respiratory distress or pain with movement Auscultation: Negative for rhonchi, wheezes or diminished lung sounds Cardio regular rate, regular rhythm, S1 normal heart sound, S2 normal heart sound and no murmurs Peripheral Pulses: pulses 2+ throughout GI normal to inspection, nondistended, normoactive bowel sounds, soft to palpation, non-tender, non-distended and no masses Back/Spine no CVA tenderness and no thoracic nor lumbar tenderness Extremity normal to inspection General Extremety ED: Negative for edema General Extremity: Negative for edema Neuro oriented x3, CN's II-XII intact bilaterally, no sensory deficits noted and gait normal Sensorium / Orientation: awake, alert, oriented to person, oriented to place and oriented to time Motor Exam: strength 5/5 throughout and strength abnormal Psych mental status grossly normal Skin no rashes or lesions noted and no wounds MDM MDM MDM Narrative Medical decision making narrative: Presents with dyspnea and a discomfort in the chest. Symptoms x2 days. She feels short of breath with activity and exertion. The chest discomfort does not radiate. She denies cough or recent illness. Patient had an EKG on arrival that showed a sinus rhythm with a ventricular rate of [address] changes. CBC with it was unremarkable. Chemistries unremarkable. Troponin was normal at 23. D-dimer was 0.88. BNP was 350. CTA of the chest showed bilateral pleural effusions and some groundglass opacities. Influenza and COVID rapid test was negative. Patient was given Lasix 40 mg IV. She does have some leg edema. Case will be discussed with hospitalist to evaluate patient for admission for chest pain and CHF. Patient was ambulated in the department with pulse ox and her O2 sat dropped to 87% on room air. Lab Data Labs: Laboratory Results - last 24 hr 08/11/22 08/11/22 08/11/22 13:35 13:35 13:35 WBC 9.6 RBC 4.67 Hgb 13.5 Hct 41.4 MCV 88.7 MCH 28.9 MCHC 32.6 RDW Std Deviation 41.2 RDW Coeff of Danelle 12.6 Plt Count 243 MPV 10.6 Immature Gran % (Auto) 0.200 Neut % (Auto) 70.9 H Lymph % (Auto) 20.9 Robeson % (Auto) 6.6 Eos % (Auto) 0.8 Baso % (Auto) 0.6 Absolute Neuts (auto) 6.8 Absolute Lymphs (auto) 2.01 Nucleated RBC % 0 D-Dimer Quant (PE/DVT) 0.88 H* Sodium 137 Potassium 4.0 Chloride 107 Carbon Dioxide 23.0 Anion Gap 7 BUN 14 Creatinine 1.09 H Estim Creat Clear Calc 30.65 Est GFR (MDRD) Af Amer 61 Est GFR (MDRD) Non-Af 51 L BUN/Creatinine Ratio 12.8 Glucose 110 H Calcium 9.0 Troponin I High Sens 23 B-Natriuretic Peptide 08/11/22 13:35 WBC RBC Hgb Hct MCV MCH MCHC RDW Std Deviation RDW Coeff of Danelle Plt Count MPV Immature Gran % (Auto) Neut % (Auto) Lymph % (Auto) Robeson % (Auto) Eos % (Auto) Baso % (Auto) Absolute Neuts (auto) Absolute Lymphs (auto) Nucleated RBC % D-Dimer Quant (PE/DVT) Sodium Potassium Chloride Carbon Dioxide Anion Gap BUN Creatinine Estim Creat Clear Calc Est GFR (MDRD) Af Amer Est GFR (MDRD) Non-Af BUN/Creatinine Ratio Glucose Calcium Troponin I High Sens B-Natriuretic Peptide 350.0 H Radiography Diagnostic Testing: Clinical Impression(s) from Imaging Studies Chest X-Ray 08/11/22 13:22 IMPRESSION: No acute pulmonary process Electronically Signed: Yair Rousseau MD at 14:06 EDT , Chest CTA 08/11/22 14:13 IMPRESSION: No demonstrated pulmonary embolism or arterial dissection. Bilateral pleural effusions associated with minimal dependent consolidation within the lower lobes. Bilateral groundglass opacities, a nonspecific finding, may be secondary to edema and/or an infectious process. Borderline enlarged lymph nodes, may be reactive. Atherosclerosis. Degenerative changes of the thoracic spine. Electronically Signed: Latricia Aceves MD at 15:29 EDT , EKG Initial EKG: Attestation: I personally reviewed and interpreted this EKG as follows: Comments: Sinus rhythm with a rate of [address] changes with subtle [address] depression noted lateral leads Discharge Plan Triage Chief Complaint: Shortness of Breath ED Provider: Latoya Amin Dx/Rx/DC Orders Clinical Impression: Chest pain, CHF (congestive heart failure), Hypoxemia Prescriptions: No Action levothyroxine 25 MCG tablet 88 mcg PO DAILY atenolol [Tenormin] 50 MG tablet 50 mg PO DAILY amlodipine 5 mg tablet 5 mg PO DAILY paroxetine HCl 40 mg tablet 40 mg PO DAILY Primary Care Provider: Neville Serrano Chi Referrals: Neville Serrano Chi, MD [Primary Care Provider] - Disposition Disposition: Acute Care Hospital [facility]
[2022-08-11 13:53] LABS: Absolute Lymphocyte Count 2.01 X10^3/uL (0.83-4.51); Absolute Neutrophil Count 6.8 X10^3/uL (2.0-7.7); Basophil# 0.06 X10^3/uL; Basophil% 0.6 % (0-1); Eosinophil# 0.08 X10^3/uL; Eosinophils% 0.8 % (0-5); Hematocrit 41.4 % (37-47); Hemoglobin 13.5 g/dL (12.0-15.0); Lymphocyte # 2.01 X10^3/ul (0.83-4.51); Lymphocyte % 20.9 % (19-41); Mean Corp Hgb Conc 32.6 g/dL (32-36); Mean Corpuscular Hgb 28.9 pg (27.0-32.0); Mean Corpuscular Volume 88.7 fL (81-99); Mean Platelet Vol. 10.6 fl (6.2-12.0); Monocyte# 0.63 X10^3/uL; Monocyte% 6.6 % (0-10); NRBC Flagged by Analyzer 0 % (0-5); Neutrophil % 70.9 % (47-70); Platelet Count 243 K/mm3 (150-450); RBC Distribution Width CV 12.6 % (11.6-14.6); RBC Distribution Width SD 41.2 fl (35.1-43.9); Red Blood Count 4.67 M/mm3 (4.2-5.4); White Blood Count 9.6 K/mm3 (4.4-11.0)
[2022-08-11 14:04] LABS: Anion Gap 7 (5-15); BUN 14 mg/dL (7-18); BUN/Creat Ratio 12.8 RATIO (10-20); Chloride 107 mmol/L (98-107); Creatinine, Serum 1.09 mg/dL (0.55-1.02); EST Glomerular Filtration Rate 51 mL/min (>60); Est Glom Filt Rate - Afr Amer 61 mL/min (>60); Estimated Creatinine Clearance 30.65 ml/min; Glucose 110 mg/dL (74-106); Sodium Level 137 mmol/L (136-145); Troponin-I HS 23 pg/mL (3.0-54.0)
[2022-08-11 14:11] LABS: D-Dimer Quantitative (DVT/PE) 0.88 FEU/ug/m (0.27-0.49)
--- NOTE | 2022-08-11 14:13 | CT_ITS ---
STUDY: CTA CHEST REASON FOR EXAM: Female, 86 years old. Dyspnea, elevated d-dimer RADIATION DOSAGE (If Supplied By Facility): CTDIvol = ( 12.13 ) mGy, DLP = ( 438.73 ) mGycm TECHNIQUE: The examination was performed with the intravenous administration of IV 100mL [id number]-370. Post-processing of the angiographic images was performed, with multiplanar reformation and 3D reconstruction. Individualized dose optimization techniques were used for this CT. COMPARISON: October 08, 2015 FINDINGS: There are bilateral pleural effusions associated with minimal dependent consolidation within the lower lobes. There are scattered bilateral groundglass opacities. There are bilateral granulomas. Normal enhancement of the main pulmonary artery and right and left pulmonary arteries. Normal enhancement of the bilateral peripheral pulmonary arteries. There is no demonstrated pulmonary embolism. Normal thoracic aorta and visualized great vessels. There are peripheral calcifications of the thoracic aorta. There is no demonstrated aortic dissection. There are calcifications of the coronary arteries. There are borderline enlarged mediastinal and hilar lymph nodes. Normal visualized trachea and bronchi. Normal chest wall structures. There are degenerative changes of the thoracic spine. Normal visualized upper abdomen. CT/CTA Chest W/WO Contrast IMPRESSION: No demonstrated pulmonary embolism or arterial dissection. Bilateral pleural effusions associated with minimal dependent consolidation within the lower lobes. Bilateral groundglass opacities, a nonspecific finding, may be secondary to edema and/or an infectious process. Borderline enlarged lymph nodes, may be reactive. Atherosclerosis. Degenerative changes of the thoracic spine. Electronically Signed: Latricia Aceves MD at 15:29 EDT ,
[2022-08-11] MEDS: 0.9% Normal Saline 1,000 ML 150 ML IV (14:25)
--- NOTE | 2022-08-11 16:02 | HP.PCM_ITS ---
HPI - General General Date of Admission: 08/11/22 Date of Service: 08/11/22 Chief Complaint: Dyspnea, chest pain. HPI Narrative The patient is an 86 y/o F w/ PMHx: Anxiety and Depression, Obesity, Hypothyroidism, HTN, HLD, CKD stage III unclear subtype who presents to the [facility] ED on 08/11/22 with history of onset of dyspnea progressively worsening over the last 48 hours came on suddenly as she was getting into bed with no recent fever, chills, cough although she does report some recent sinus drainage as well as episode of loose stool with self administration of Imodium but she does have underlying IBS with no specific ill contacts prompting eventual ED evaluation. She also notes recent chest discomfort with initially an episode on Friday in the evening reportedly had gone to bed and awoke to use the restroom with onset of significant discomfort midsternal region and underneath the breasts described as tightness rated 8 out of 10 in severity with no specific nausea, emesis or diaphoresis but did have dyspnea subsiding after 15 minutes however she is continued to have it in the midsternal region and underneath her breasts again as a tightness ranging from 4-6 but has been constant and unchanged since then. She does report that she has had significant sinus issues with marked sinus drainage. She does admit to bilateral lower extremity ankle swelling with roberts from her socks which is abnormal from her over the last several days as well as orthopnea. Work-up in the ED included T98.4, heart rate 76, BP initially 166/66 with most recent repeat 158/80, respiratory rate initially 89% on room air in triage with improvement to 95% on room air with interventions, with ambulation however patient decreased to 87% improving with rest, CBC with WC 9.6, 113.5, platelet 243 without marked shift, D-dimer 0.88, BMP with BUN/creatinine 14/1.09, glucose 110, troponin 23, BNP 350, chest x-ray with no acute cardiopulmonary findings, CTPA with no demonstrated pulmonary embolism or arterial dissection, bilateral pleural effusions associated with minimal dependent consolidation within the lower lobes, bilateral ground-glass opacities possibly secondary to edema and/or infectious process, borderline enlarged lymph nodes possibly reactive, atherosclerosis, degenerative changes of the thoracic spine, EKG with sinus rhythm with nonspecific ST changes with subtle [address] depression in the lateral leads although similar appearing to prior. In the ED patient administered Lasix 40 mg IV x1. [facility] Medical History (Updated 08/11/22 @ 16:[address] Marina Rogers MD) Anxiety and depression CKD (chronic kidney disease), stage III HLD (hyperlipidemia) HTN (hypertension) Hypothyroidism Obesity Home Medications atenolol 50 mg tablet (Tenormin) 50 mg PO DAILY 07/20/15 [History Last Taken Unknown] levothyroxine 25 mcg tablet 88 mcg PO DAILY 07/20/15 [History Last Taken Unknown] amlodipine 5 mg tablet 5 mg PO DAILY 08/11/22 [History Last Taken Unknown] paroxetine HCl 40 mg tablet 40 mg PO DAILY 08/11/22 [History Last Taken Unknown] Allergy/AdvReac Type Severity Reaction Status Date / Time No Known Allergies Allergy Verified 12/02/19 07:10 Family History (Updated 08/11/22 @ 16:[address] Marina Rogers MD) Mother Heart disease Hypertension CHF (congestive heart failure) Father Heart disease Hypertension CHF (congestive heart failure) CAD (coronary artery disease) Myocardial infarction Surgical History (Updated 08/11/22 @ 16:[address] Marina Rogers MD) History of carpal tunnel release History of tonsillectomy and adenoidectomy Social History (Updated 08/11/22 @ 16:[address] Marina Rogers MD) household members: none Smoking Status: Never smoker alcohol intake: never substance use type: does not use ROS ROS Narrative Admission Review of Systems: CONSTITUTIONAL: No weight loss, fever, chills, + weakness or fatigue. HEENT: + Chronic sinus drainage. Eyes: No visual loss, blurred vision, double vision or yellow sclerae. Ears, Nose, Throat: No hearing loss, sneezing, congestion, runny nose or sore throat. SKIN: No rash or itching, lesions, wounds. CARDIOVASCULAR: + chest pain, chest pressure or chest discomfort, orthopnea, edema, No palpitations, syncopal events. RESPIRATORY: + shortness of breath, No cough or sputum, wheezing, hemoptysis. GASTROINTESTINAL: No anorexia, nausea, vomiting or diarrhea, abdominal pain, melena, BRBPR. GENITOURINARY: No dysuria, frequency, urgency or retention. NEUROLOGICAL: No headache, dizziness, syncope, paralysis, ataxia, numbness or tingling in the extremities, focal weakness, change in bowel or bladder control, seizure. MUSCULOSKELETAL: + muscle, back pain, joint pain or stiffness. HEMATOLOGIC: No anemia, bleeding or bruising. LYMPHATICS: No enlarged nodes. No history of splenectomy. PSYCHIATRIC: + history of depression or anxiety. ENDOCRINOLOGIC: No reports of sweating, cold or heat intolerance. No polyuria or polydipsia. ALLERGIES: + rhinitis. Vital Signs Vital Signs Vital Signs: 08/11/22 13:12 08/11/22 13:12 08/11/22 13:42 Temperature 98.4 F 98.4 F Temperature Source Temporal Temporal Pulse Rate 76 76 Respiratory Rate 18 18 Respiratory Effort Normal Non-Labored Respiratory Depth Normal Respiratory Pattern Normal Blood Pressure 166/66 H 166/66 H Blood Pressure Mean 99 99 Pulse Ox 89 94 Oxygen Delivery Method Room Air Room Air Room Air 08/11/22 14:12 Temperature Temperature Source Pulse Rate 69 Respiratory Rate 18 Respiratory Effort Respiratory Depth Respiratory Pattern Blood Pressure 156/80 H Blood Pressure Mean 105 Pulse Ox 95 Oxygen Delivery Method Room Air Weight Weight: 216 lb 12.8 oz Body Mass Index (BMI) 38.4 Physical Exam Narrative Physical Examination: General: Awake, alert, oriented x 3 and cooperative, seated upright in the ED bed in no apparent distress, report still having chest discomfort, 6 out of 10 but this has been constant for several days. Skin: Normal color, normal turgor, no icterus, no cyanosis. HEENT: AT/NC, EOMI, PERRLA, MMM, no carotid bruits, unable to discern notable JVD secondary to thickened neck. Lungs: Significantly diminished, greater bases, despite CTPA findings no marked rales nor any rhonchi or wheezing. Heart: Regular rate and rhythm; no gallop, rub audible. Abdomen: Soft, obese, NTTP, ND, distant normal BS, no HSM. Extremities: No cyanosis, no clubbing, peripheral ankle mild pitting edema. Neurological: Patient awake, alert, oriented as noted, cognitive function intact; pupils equally reactive to light and accommodation, cranial nerves II- XII grossly normal, moving all 4 extremities, no focal deficits, strength moderately global decrease secondary to acute presentation Psychiatric: Affect appears mildly fatigued otherwise normal, no acute evidence of depressive or anxiety feelings but does have underlying history. Results Lab / Micro Data Result Diagrams: 08/11/22 13:35 08/11/22 13:35 Labs: Laboratory Results - last 24 hr 08/11/22 13:35: WBC 9.6, RBC 4.67, Hgb 13.5, Hct 41.4, MCV 88.7, MCH 28.9, MCHC 32.6, RDW Std Deviation 41.2, RDW Coeff of Danelle 12.6, Plt Count 243, MPV 10.6, Immature Gran % (Auto) 0.200, Neut % (Auto) 70.9 H, Lymph % (Auto) 20.9, [place] % (Auto) 6.6, Eos % (Auto) 0.8, Baso % (Auto) 0.6, Absolute Neuts (auto) 6.8, Absolute Lymphs (auto) 2.01, Nucleated RBC % 0 08/11/22 13:35: D-Dimer Quant (PE/DVT) 0.88 H* 08/11/22 13:35: Sodium 137, Potassium 4.0, Chloride 107, Carbon Dioxide 23.0, Anion Gap 7, BUN 14, Creatinine 1.09 H, Estim Creat Clear Calc 30.65, Est GFR (MDRD) Af Amer 61, Est GFR (MDRD) Non-Af 51 L, BUN/Creatinine Ratio 12.8, Glucose 110 H, Calcium 9.0, Troponin I High Sens 23 08/11/22 13:35: B-Natriuretic Peptide 350.0 H Micro: Microbiology 08/11/22 13:35 Nasal Secretion SARS-CoV-2 & FLU Antigen (Rapid) - Final Radiology Impression Chest X-Ray 08/11/22 13:22 IMPRESSION: No acute pulmonary process Electronically Signed: Yair Rousseau MD at 14:06 EDT Reading Location ID and State: [facility] / [place] , Service support , Chest CTA 08/11/22 14:13 IMPRESSION: No demonstrated pulmonary embolism or arterial dissection. Bilateral pleural effusions associated with minimal dependent consolidation within the lower lobes. Bilateral groundglass opacities, a nonspecific finding, may be secondary to edema and/or an infectious process. Borderline enlarged lymph nodes, may be reactive. Atherosclerosis. Degenerative changes of the thoracic spine. Electronically Signed: Latricia Aceves MD at 15:29 EDT , Assessment & Plan Assessment/Plan (1) CHF (congestive heart failure): PLAN: Plan The patient is an 86 y/o F w/ PMHx: Anxiety and Depression, Obesity, Hypothyroidism, HTN, HLD, CKD stage III unclear subtype who presents to the [facility] ED on 08/11/22 with history of onset of dyspnea progressively worsening over the last 48 hours came on suddenly as she was getting into bed with no recent fever, chills, cough although she does report some recent sinus drainage as well as episode of loose stool with self administration of Imodium but she does have und erlying IBS with no specific ill contacts prompting eventual ED evaluation. #1. Dyspnea with associated hypoxia, concern for possible underlying CHF, unclear type versus possible atypical viral pneumonia w/ concurrent chest pain: Patient administered IV lasix in the ED, will admit to PCU, maintain on cardiac telemetry obtain cardiac enzyme series, obtain serial EKGs, continue IV lasix diuresis, monitor I/Os, continue medical therapy, obtain TSH and magnesium level. Will obtain ECHO. Will additionally obtain respiratory viral panel, COVID PCR, sputum Cx, antigens and procalcitonin to be cautious. Once evaluation CHF complete given chest discomfort pending enzyme trending may need to further consider stress testing. #2. Hypertension: Continue home regimen including atenolol, norvasc, IV Lasix with work-up as noted #1, PRN hydralazine. #3. Hyperlipidemia: Not on regimen, add low to moderate dose given agent, FLP in a.m. especially given #1. #4. Chronic Kidney Disease Stage III, unclear sob: Admission BUN/Cr 14/1.09, baseline renal function primarily appears 1.0-1.3 although did have elevation 06/04/2022 1.75 but suspect this acute, will repeat CBC in a.m. #5. Anxiety and depression: We will continue patient paroxetine regimen. #6. Hypothyroidism: We will continue patient home levothyroxine regimen, TSH and free T4 pending. #7. Obesity: Weight loss and lifestyle changes encouraged. #8. DVT Prophylaxis: Lovenox. #9 code CODE status: Patient JAILENE is her 2 daughters 1 of which is present and living will is currently in place. Discussed CODE status at length including difference between FULL code, DNR-CCA and DNR-CC status. Following discussions about the differences in these status, requested Full Code status. Advanced Care Planning Face to Face Time: 16 minutes. Admission Evaluation Time spent evaluating chart, patient history, patient evaluation, care planning and discussion with specialists: 75 minutes. Charges/Coding Visit Charges Inpatient E&M: 05096 Init Hosp L3 Procedures Hospitalists Procedures: 37230 Advncd Care Plan 30 Min
--- NOTE | 2022-08-11 16:23 | NURSING ---
105 WHITE CHF, CHEST PAIN, HYPOXEMIA
[2022-08-11] MEDS: Furosemide 40 MG/4 ML Vial IV (16:30)
--- NOTE | 2022-08-11 17:06 | ECHOD_ITS ---
Reason For Study: CHF Procedure This was a 2D Doppler, Color Flow transthoracic echocardiogram. Exam performed portable in patient room. Left Ventricle Normal LV size. Mild concentric left ventricular hypertrophy. The left ventricular ejection fraction is 65 %. Diastolic function is indeterminate. Right Ventricle Normal right ventricle. Atria The left atrium is moderately enlarged. Normal right atrium. Mitral Valve Mild diffuse mitral valve thickening. Moderately severe (3+) eccentric mitral valve insufficiency. Tricuspid Valve Mild tricuspid valve insufficiency. Normal pulmonary artery pressure. Aortic Valve Trisinus/trileaflet aortic valve. Mild-Moderate (1-2+) aortic valve insufficiency. Pulmonic Valve The pulmonic valve is not well visualized. Great Vessels Normal sized aortic root. Pericardium/Pleural No pericardial effusion. MMode/2D Measurements & Calculations LVIDd: 4.8 cm IVSd: 1.1 cm Ao root diam: 3.2 cm LVIDs: 3.2 cm LVPWd: 1.2 cm RVDd: 2.9 cm FS: 34.1 % LAV(MOD-bp): 96.9 ml LVAd ap4: 26.8 cm2 SV(MOD-sp4): 49.3 ml LAV(MOD-bp) Indexed: 50.2 ml/m2 LVLd ap4: 7.5 cm LAV(MOD-sp2): 79.3 ml EDV(MOD-sp4): 77.7 ml LAV(MOD-sp4): 94.3 ml EDV(sp4-el): 81.4 ml LVAs ap4: 14.3 cm2 LVLs ap4: 6.0 cm ESV(MOD-sp4): 28.4 ml ESV(sp4-el): 28.9 ml EF(MOD-sp4): 63.5 % EF(sp4-el): 64.5 % SV(sp4-el): 52.5 ml LA A4 area: 28.5 cm2 LA dimension(2D): 4.3 cm RA A4 area: 9.6 cm2 Time Measurements MV dec time: 0.29 sec Doppler Measurements & Calculations MV E max chris: 99.5 cm/sec Lat Peak E' Chris: 7.3 cm/sec Med Peak E' Chris: 6.9 cm/sec MV A max chris: 113.4 cm/sec E/E' lat: 13.7 E/E' med: 14.3 MV E/A: 0.88 MV V2 max: 159.4 cm/sec Ao V2 max: 157.2 cm/sec MV max P.2 mmHg MV dec slope: 337.2 cm/sec2 Ao max P.9 mmHg MV V2 mean: 95.4 cm/sec Ao V2 mean: 109.0 cm/sec MV mean P.2 mmHg Ao mean P.4 mmHg MV V2 VTI: 42.6 cm Ao V2 VTI: 37.1 cm AI max chris: 321.0 cm/sec LV V1 max: 129.1 cm/sec PA V2 max: 102.6 cm/sec AI max P.4 mmHg LV V1 max P.7 mmHg AI dec slope: 242.2 cm/sec2 AI P1/2t: 388.1 msec TR max chris: 246.6 cm/sec TR max P.3 mmHg ECHO/Echo Complete Interpretation Summary Mild concentric left ventricular hypertrophy. The left ventricular ejection fraction is 65 %. The left atrium is moderately enlarged. Mild diffuse mitral valve thickening. Moderately severe (3+) eccentric mitral valve insufficiency. Mild tricuspid valve insufficiency. Mild-Moderate (1-2+) aortic valve insufficiency. Diastolic function is indeterminate. Ordering Physician: Marina Rogers Referring Physician: Neville Serrano Chi Performed By: Ewa Aceves, KALIE, RVT
[2022-08-11 18:31] LABS: Procalcitonin < 0.04 ng/mL (0.00-0.09)
[2022-08-11 20:18] LABS: Troponin-I HS 24 pg/mL (3.0-54.0)
--- NOTE | 2022-08-11 22:28 | CPS ---
Patient refused Nasal swab by [facility] @20:40
[2022-08-12] MEDS: Levothyroxine 88 MCG Tablet PO (05:24)
[2022-08-12 06:00] VITALS: BMI 35.3
[2022-08-12 06:22] LABS: Absolute Lymphocyte Count 2.78 X10^3/uL (0.83-4.51); Absolute Neutrophil Count 3.1 X10^3/uL (2.0-7.7); Basophil# 0.06 X10^3/uL; Basophil% 0.9 % (0-1); Eosinophil# 0.13 X10^3/uL; Eosinophils% 1.9 % (0-5); Hematocrit 37.9 % (37-47); Hemoglobin 12.4 g/dL (12.0-15.0); Lymphocyte # 2.78 X10^3/ul (0.83-4.51); Lymphocyte % 40.9 % (19-41); Mean Corp Hgb Conc 32.7 g/dL (32-36); Mean Corpuscular Hgb 29.3 pg (27.0-32.0); Mean Corpuscular Volume 89.6 fL (81-99); Mean Platelet Vol. 11.3 fl (6.2-12.0); Monocyte# 0.73 X10^3/uL; Monocyte% 10.8 % (0-10); NRBC Flagged by Analyzer 0 % (0-5); Neutrophil # 3.07 X10^3/uL (2.7-7.7); Neutrophil % 45.2 % (47-70); Platelet Count 216 K/mm3 (150-450); RBC Distribution Width CV 12.7 % (11.6-14.6); RBC Distribution Width SD 41.1 fl (35.1-43.9); Red Blood Count 4.23 M/mm3 (4.2-5.4); White Blood Count 6.8 K/mm3 (4.4-11.0)
[2022-08-12 07:00] LABS: ALB/GLOB Ratio 0.8 RATIO (0.9-2.4); AST(SGOT) 21 U/L (15-37); Alanine Aminotransfer ALT/SGPT 18 U/L (13-56); Albumin, Serum 2.9 g/dL (3.2-5.0); Alkaline Phosphatase 83 U/L (45-117); Anion Gap 5 (5-15); BUN 13 mg/dL (7-18); BUN/Creat Ratio 12.3 RATIO (10-20); Calcium,Total 8.5 mg/dL (8.5-10.1); Chloride 106 mmol/L (98-107); Cholesterol 256 mg/dL (200); Creatinine, Serum 1.06 mg/dL (0.55-1.02); EST Glomerular Filtration Rate 52 mL/min (>60); Est Glom Filt Rate - Afr Amer 63 mL/min (>60); Estimated Creatinine Clearance 31.51 ml/min; Globulin 3.5 g/dL (2.2-4.2); Glucose 99 mg/dL (74-106); High Density Lipoprotein 42 mg/dL; Potassium 3.3 mmol/L (3.5-5.1); Protein, Total 6.4 g/dL (6.4-8.2); Sodium Level 136 mmol/L (136-145); T4 Free Direct 1.25 ng/dL (0.76-1.46); Thyroid Stim Hormone (TSH) 4.57 uIU/mL (0.358-3.74); Triglycerides 148 mg/dL; Very Low Density Lipoprotein 30 mg/dL (5-40)
[2022-08-12 07:42] VITALS: O2SAT 93
--- NOTE | 2022-08-12 08:15 | PN.HOSP_ITS ---
Reason for Visit Reason for Visit: Diagnoses Heart failure, unspecified (08/11/22) Subjective Subjective Follow-up for shortness of breath and concern for heart failure. Objective Data Objective Data Vital Signs: Vital Signs Temp Pulse Resp BP Pulse Ox O2 Del Method 98.2 F 68 18 128/49 H 93 Room Air 08/11/22 23:25 08/11/22 23:25 08/11/22 23:25 08/11/22 23:25 08/12/22 07:42 08/12/22 07:42 Oxygen Delivery Method Room Air Weight: 199 lb 8.293 oz Body Mass Index (BMI) 35.3 Intake & Output: Intake and Output for Last 24 Hours 08/10/22 08/11/22 08/12/22 23:59 23:59 23:59 Intake Total 1120 / 1120 Output Total 200 / 200 Balance 1120 / 1120 -200 / -200 Lab / Micro Data Result Diagrams: 08/12/22 05:15 08/12/22 05:15 Labs: Laboratory Results - last 24 hr 08/11/22 13:35: WBC 9.6, RBC 4.67, Hgb 13.5, Hct 41.4, MCV 88.7, MCH 28.9, MCHC 32.6, RDW Std Deviation 41.2, RDW Coeff of Danelle 12.6, Plt Count 243, MPV 10.6, Immature Gran % (Auto) 0.200, Neut % (Auto) 70.9 H, Lymph % (Auto) 20.9, [place] % (Auto) 6.6, Eos % (Auto) 0.8, Baso % (Auto) 0.6, Absolute Neuts (auto) 6.8, Absolute Lymphs (auto) 2.01, Nucleated RBC % 0 08/11/22 13:35: D-Dimer Quant (PE/DVT) 0.88 H* 08/11/22 13:35: Sodium 137, Potassium 4.0, Chloride 107, Carbon Dioxide 23.0, Anion Gap 7, BUN 14, Creatinine 1.09 H, Estim Creat Clear Calc 30.65, Est GFR (MDRD) Af Amer 61, Est GFR (MDRD) Non-Af 51 L, BUN/Creatinine Ratio 12.8, Glu cose 110 H, Calcium 9.0, Troponin I High Sens 23 08/11/22 13:35: B-Natriuretic Peptide 350.0 H 08/11/22 17:55: Magnesium 2.0 08/11/22 17:55: Procalcitonin < 0.04 08/11/22 19:53: Troponin I High Sens 24 08/12/22 05:15: WBC 6.8, RBC 4.23, Hgb 12.4, Hct 37.9, MCV 89.6, MCH 29.3, MCHC 32.7, RDW Std Deviation 41.1, RDW Coeff of Danelle 12.7, Plt Count 216, MPV 11.3, Immature Gran % (Auto) 0.300, Neut % (Auto) 45.2 L, Lymph % (Auto) 40.9, [place] % (Auto) 10.8 H, Eos % (Auto) 1.9, Baso % (Auto) 0.9, Absolute Neuts (auto) 3.1, Absolute Lymphs (auto) 2.78, Nucleated RBC % 0 08/12/22 05:15: Sodium 136, Potassium 3.3 L, Chloride 106, Carbon Dioxide 25.0, Anion Gap 5, BUN 13, Creatinine 1.06 H, Estim Creat Clear Calc 31.51, Est GFR (MDRD) Af Amer 63, Est GFR (MDRD) Non-Af 52 L, BUN/Creatinine Ratio 12.3, Glucose 99, Calcium 8.5, Total Bilirubin 0.50, AST 21, ALT 18, Alkaline Phosphatase 83, Total Protein 6.4, Albumin 2.9 L, Globulin 3.5, Albumin/Globulin Ratio 0.8 L, Triglycerides 148, Cholesterol 256 H, LDL Cholesterol 184 H, VLDL Cholesterol 30, HDL Cholesterol 42, TSH 4.57 H, Free T4 1.25 Micro: Microbiology 08/12/22 01:13 Urine, Clean Catch Legionella Antigen - Final 08/12/22 01:13 Urine, Clean Catch Streptococcus pneumoniae Antigen (M - Final 08/11/22 13:35 Nasal Secretion SARS-CoV-2 & FLU Antigen (Rapid) - Final Radiography Diagnostic Testing: Radiology Impression Chest X-Ray 08/11/22 13:22 IMPRESSION: No acute pulmonary process Electronically Signed: Yair Rousseau MD at 14:06 EDT Reading Location ID and State: [facility] / [place] , Service support , Chest CTA 08/11/22 14:13 IMPRESSION: No demonstrated pulmonary embolism or arterial dissection. Bilateral pleural effusions associated with minimal dependent consolidation within the lower lobes. Bilateral groundglass opacities, a nonspecific finding, may be secondary to edema and/or an infectious process. Borderline enlarged lymph nodes, may be reactive. Atherosclerosis. Degenerative changes of the thoracic spine. Electronically Signed: Latricia Aceves MD at 15:29 EDT , Assessment & Plan Assessment/Plan (1) CHF (congestive heart failure): PLAN: Plan The patient is an 86 y/o F came to ED for shortness of breath for 2 days. Patient has some sinus drainage. History of IBS and had loose stool and took Imodium. No fever. She also had chest discomfort in the midsternal region on Friday evening lasted for 15 minutes not associated with nausea diaphoresis or e mesis. She had another episode of midsternal discomfort/tightness and is constant in nature. #1. Dyspnea with hypoxia consult for heart failure, unclear type or possible atypical viral infection: BNP elevated. Serial troponins negative. Magnesium and procalcitonin normal. TSH 4.5, free T4 normal. COVID-19 PCR and sputum culture pending. Urinary antigens are negative. Rapid SARS-CoV-2 and flu antigen are negative. Patient had CT angiogram chest which is individually reviewed. Does not show PE but small bilateral pleural effusion in lower lobes with dependent atelectasis and bilateral groundglass opacities. 08/12: Echo shows EF 65% with mild concentric LVH. LA moderately enlarged. Mild diffuse mitral valve thickening, 3+ eccentric MR. Mild to moderate AI. Overall it is suggestive of acute on chronic HFpEF. #2. Hypertension: Continue home regimen including atenolol, norvasc, PRN hydralazine. #3. Hyperlipidemia: TC 256, LDL 184 HDL 42. On 40 mg atorvastatin. #4. Chronic Kidney Disease Stage IIIb: Admission BUN/Cr 14/1.09, baseline renal function primarily appears 1.0-1.3. Estimated creatinine clearance around 31 mm/min #5. Anxiety and depression: We will continue patient paroxetine regimen. #6. Hypothyroidism: continue patient home levothyroxine regimen, TSH and free T4 pending. #7. Obesity: Weight loss and lifestyle changes encouraged. #8. DVT Prophylaxis: Lovenox. #9 code CODE status: Patient JAILENE is her 2 daughters 1 of which is present and living will is currently in place. Discussed CODE status at length including difference between FULL code, DNR-CCA and DNR-CC status. Following discussions about the differences in these status, requested Full Code status. Microbiology Past 72 Hours 08/12/22 01:13 Urine, Clean Catch Legionella Antigen - Final 08/12/22 01:13 Urine, Clean Catch Streptococcus pneumoniae Antigen (M - Final 08/11/22 13:35 Nasal Secretion SARS-CoV-2 & FLU Antigen (Rapid) - Final Laboratory Results 08/11/22 13:35: WBC 9.6, RBC 4.67, Hgb 13.5, Hct 41.4, MCV 88.7, MCH 28.9, MCHC 32.6, RDW Std Deviation 41.2, RDW Coeff of Danelle 12.6, Plt Count 243, MPV 10.6, Immature Gran % (Auto) 0.200, Neut % (Auto) 70.9 H, Lymph % (Auto) 20.9, [place] % (Auto) 6.6, Eos % (Auto) 0.8, Baso % (Auto) 0.6, Absolute Neuts (auto) 6.8, Absolute Lymphs (auto) 2.01, Nucleated RBC % 0 08/11/22 13:35: D-Dimer Quant (PE/DVT) 0.88 H* 08/11/22 13:35: Sodium 137, Potassium 4.0, Chloride 107, Carbon Dioxide 23.0, Anion Gap 7, BUN 14, Creatinine 1.09 H, Estim Creat Clear Calc 30.65, Est GFR (MDRD) Af Amer 61, Est GFR (MDRD) Non-Af 51 L, BUN/Creatinine Ratio 12.8, Glucose 110 H, Calcium 9.0, Troponin I High Sens 23 08/11/22 13:35: B-Natriuretic Peptide 350.0 H 08/11/22 17:55: Magnesium 2.0 08/11/22 17:55: Procalcitonin < 0.04 08/11/22 19:53: Troponin I High Sens 24 08/12/22 05:15: WBC 6.8, RBC 4.23, Hgb 12.4, Hct 37.9, MCV 89.6, MCH 29.3, MCHC 32.7, RDW Std Deviation 41.1, RDW Coeff of Danelle 12.7, Plt Count 216, MPV 11.3, Immature Gran % (Auto) 0.300, Neut % (Auto) 45.2 L, Lymph % (Auto) 40.9, [place] % (Auto) 10.8 H, Eos % (Auto) 1.9, Baso % (Auto) 0.9, Absolute Neuts (auto) 3.1, Absolute Lymphs (auto) 2.78, Nucleated RBC % 0 08/12/22 05:15: Sodium 136, Potassium 3.3 L, Chloride 106, Carbon Dioxide 25.0, Anion Gap 5, BUN 13, Creatinine 1.06 H, Estim Creat Clear Calc 31.51, Est GFR (MDRD) Af Amer 63, Est GFR (MDRD) Non-Af 52 L, BUN/Creatinine Ratio 12.3, Glucose 99, Calcium 8.5, Total Bilirubin 0.50, AST 21, ALT 18, Alkaline Phosphatase 83, Total Protein 6.4, Albumin 2.9 L, Globulin 3.5, Albumin/Globulin Ratio 0.8 L, Triglycerides 148, Cholesterol 256 H, LDL Cholesterol 184 H, VLDL Cholesterol 30, HDL Cholesterol 42, TSH 4.57 H, Free T4 1.25 Clinical Impression(s) from Imaging Studies Chest X-Ray 08/11/22 13:22 IMPRESSION: No acute pulmonary process Chest CTA 08/11/22 14:13 IMPRESSION: No demonstrated pulmonary embolism or arterial dissection. Bilateral pleural effusions associated with minimal dependent consolidation within the lower lobes. Bilateral groundglass opacities, a nonspecific finding, may be secondary to edema and/or an infectious process. Borderline enlarged lymph nodes, may be reactive. Atherosclerosis. Degenerative changes of the thoracic spine. Charges/Coding Visit Charges Inpatient E&M: 83213 Subs Hosp L2
[2022-08-12 09:40] VITALS: BP 148/85; PULSE 69; RESP 18; TEMP 36.7; O2SAT 94
[2022-08-12] MEDS: Atenolol 50 MG Tablet PO (09:42)
[2022-08-12] MEDS: amLODIPine 5 MG Tablet PO (09:42)
[2022-08-12] MEDS: Furosemide 40 MG/4 ML Vial IV ×2 (09:43→16:50)
[2022-08-12] MEDS: Enoxaparin 40 MG/0.4 ML Syringe SC (09:43)
[2022-08-12] MEDS: Aspirin E.C. 81 MG Tablet PO (09:43)
--- NOTE | 2022-08-12 10:55 | CASEMGMT ---
RN CM Face to Face with patient for initial transition planning/care coordination assessment. RN CM introduced self and role at [facility]. Patient lying in bed, alert and oriented. Patient willing to participate in assessment and is able to answer all questions appropriately. Care providers, pharmacy, and demographics verified. Patient wishes to discharge home, denies need for home health at this time. Patient states she has no further needs or concerns at this time. CM to follow for discharge planning needs that may arise. PCP: Zach Specialists: none Preferred Pharmacy: [facility] Insurance: [facility], [place] Prescription Benefit: yes Living Will/HPOA: yes, daughter Sarah Genao LNOK: daughter Living Arrangements: Patient lives alone in 2 story home with bed and bath on first floor. Patient states she is independent at home. Transportation: self, daughter DME/HHC: Patient denies DME in the home. No previous HHC or SNF. Disposition Plan: Patient to discharge home with family support and follow-up plans in place. Kandis LEMON, RN, CM
[2022-08-12 15:40] VITALS: BP 108/47; PULSE 71; RESP 18; TEMP 37; O2SAT 94
[2022-08-12] MEDS: 0.9% Saline Lock 10 ML Syringe IV (16:50)
[2022-08-12] MEDS: Potassium Chloride Oral Tablet 20 MEQ 40 MEQ PO (17:58)
[2022-08-12 21:40] VITALS: BP 132/76; PULSE 80; RESP 16; TEMP 36.7; O2SAT 92
[2022-08-12] MEDS: Paroxetine 20 MG Tablet 40 MG PO (23:18)
[2022-08-13 03:40] VITALS: BP 128/76; PULSE 70; RESP 16; TEMP 36.6; O2SAT 93
[2022-08-13] MEDS: Levothyroxine 88 MCG Tablet PO (05:34)
[2022-08-13 06:24] LABS: Anion Gap 5 (5-15); BUN 23 mg/dL (7-18); Calcium,Total 8.6 mg/dL (8.5-10.1); Chloride 107 mmol/L (98-107); Creatinine, Serum 1.28 mg/dL (0.55-1.02); EST Glomerular Filtration Rate 42 mL/min (>60); Est Glom Filt Rate - Afr Amer 51 mL/min (>60); Glucose 101 mg/dL (74-106); Phosphorus 3.3 mg/dL (2.5-4.9); Potassium 3.3 mmol/L (3.5-5.1); Sodium Level 138 mmol/L (136-145)
--- NOTE | 2022-08-13 08:06 | DCINST_ITS ---
Discharge Instructions Diet Discharge Diet: Low fat / Low cholesterol and 2000 mg Sodium Diet Activity Discharge Activity: Return to Normal Activity Weight Bearing Status: Weight bearing as tolerated Dressing / Incision Call your doctor if you observe: Fever of 101 or Higher, Coldness, Increased Pain, Numbness or Tingling, Change in Color, Inability to urinate, Inability to have a bowel movement, Using more than 1 pad per hour, Shortness of breath, Dizziness, Fainting spells, Swelling in the ankles, Chest pain, Prolonged hiccupping, Increased palpitations (irregular heartbeat) and Calf discomfort Follow Up Care When: IN 2 WEEKS Test Results: Test results from this visit will be discussed in further detail at your follow- up appointment, if applicable. Discharge Plan Admission Admit Date/Time: 08/11/22 16:10 Primary Reason for Your Visit: Acute on chronic HFpEF Attending Provider: Tien Varma Primary Care Provider: Neville Serrano Chi Consulting Providers: Marina Rogers Discharge Orders/Prescriptions Prescriptions: New aspirin 81 mg Tablet,Delayed Release (Dr/Ec) 81 mg PO BREAKFAST Qty: 30 2RF spironolactone 25 mg Tablet 12.5 mg PO DAILY Qty: 30 1RF furosemide 40 mg tablet 40 mg PO DAILY Qty: 30 2RF Rx Instructions: Take an additional 40 mg dose at 5 PM for increased leg swelling or weight gain 5 pounds in 1 week. atorvastatin 40 mg tablet 40 mg PO QHS Qty: 30 2RF lisinopril 10 mg tablet 10 mg PO DAILY Qty: 30 2RF Continued levothyroxine 25 MCG tablet 88 mcg PO DAILY atenolol [Tenormin] 50 MG tablet 50 mg PO DAILY paroxetine HCl 40 mg tablet 40 mg PO DAILY Discontinued amlodipine 5 mg tablet 5 mg PO DAILY Referrals / Follow Up: Jeovanny Bal MD [Med Staff - Active Staff] - Within 1 Month Neville Serrano Chi, MD [Primary Care Provider] - Within 2 Weeks Disposition Disposition (needs filled in before D/C Order can be placed): Home, Self Care
[2022-08-13 08:18] VITALS: BMI 34.7
--- NOTE | 2022-08-13 08:34 | PCM.DC.SUM ---
Providers Date of Admission: 08/11/22 Date of Discharge: 08/13/22 Primary Care Physician: Dr. Neville Serrano MD Reason For Visit: HYPOXIA, CHF EXACERBATION Diagnosis Discharge Diagnosis (1) CHF (congestive heart failure): Status: Acute Code(s): I50.9 - Heart failure, unspecified Plan The patient is an 86 y/o F came to ED for shortness of breath for 2 days.? Patient had some sinus drainage.? History of IBS and had loose stool and took Imodium.? No fever.? She also had chest discomfort in the midsternal region on Friday evening lasted for 15 minutes not associated with nausea diaphoresis or emesis.? She had another episode of midsternal discomfort/tightness and is constant in nature. #1.? Acute on chronic HFpEF probably due to hypertension and valvular heart disease, moderate MR and mild to moderate AI: BNP elevated.? Serial troponins negative.? Magnesium and procalcitonin normal.? TSH 4.5, free T4 normal.? COVID-19 PCR and sputum culture pending.? Urinary antigens are negative.? Rapid SARS-CoV-2 and flu antigen are negative. ? Patient had CT angiogram chest which is individually reviewed.? Does not show? PE but small bilateral pleural effusion in lower lobes with dependent atelectasis and bilateral groundglass opacities. 08/12: Echo shows EF 65% with mild concentric LVH.? LA moderately enlarged.? Mild diffuse mitral valve thickening, 3+ eccentric MR.? Mild to moderate AI.? Overall it is suggestive of acute on chronic HFpEF. 08/13: Leg swelling has improved. Lungs are clear. Patient ready to go home. Discharged on baby aspirin, lisinopril, atorvastatin. Amlodipine discontinued as patient had leg swelling. Heart rate and blood pressure control patient also has moderate MR and mild to moderate AI. Follow up with meat loiner Dr. Bal in 1 month. #2.? Hypertension: Continue home regimen including atenolol, norvasc, PRN hydralazine. 08/13: As mentioned above. Norvasc discontinued #3.? Hyperlipidemia: TC 256, LDL 184 HDL 42.? On 40 mg atorvastatin. #4.? Chronic Kidney Disease Stage IIIb: Admission BUN/Cr 14/1.09, baseline renal function primarily appears 1.0-1.3.? Estimated creatinine clearance around 31 mm/min #5.? Anxiety and depression: We will continue patient paroxetine regimen. #6.? Hypothyroidism:? continue patient home levothyroxine regimen /11: TSH 4.57 slightly elevated in normal range but free T4 normal 1-25. Continue home dose. #7.? Obesity: Weight loss and lifestyle changes encouraged. #8.? DVT Prophylaxis: Lovenox. #9 code CODE status: Patient JAILENE is her 2 daughters 1 of which is present and living will is currently in place. Discussed CODE status at length including difference between FULL code, DNR-CCA and DNR-CC status. Following discussions about the differences in these status, requested Full Code status. Discharge medication reconciliation done. Discharge follow-up instructions completed. Discharge process discussed with the patient and all questions were answered to patient's satisfaction. Prescriptions sent to patient's pharmacy Total time spent, exact 35 minutes on discharge meds reconciliation, examination, coordination of care with nurses and ancillary staff, review of imaging and blood test and discussion with the patient on follow-up instructions. Medications at Discharge Home Medications atenolol 50 mg tablet (Tenormin) 50 mg PO DAILY BP 07/20/15 levothyroxine 25 mcg tablet 88 mcg PO DAILY . 07/20/15 paroxetine HCl 40 mg tablet 40 mg PO DAILY . 08/11/22 aspirin 81 mg tablet,delayed release 81 mg PO BREAKFAST #30 tabs 08/13/22 atorvastatin 40 mg tablet 40 mg PO QHS #30 tabs 08/13/22 furosemide 40 mg tablet 40 mg PO DAILY #30 tabs 08/13/22 lisinopril 10 mg tablet 10 mg PO DAILY #30 tabs 08/13/22 spironolactone 25 mg tablet 12.5 mg PO DAILY #30 tabs 08/13/22 Physical Exam Narrative Seen and examined on the day of discharge. On monitoring and evaluation advisor sinus rhythm. Heart rate and blood pressure control. Leg swelling has improved. Shortness of breath has resolved. Physical exam General: Alert, Oriented x3, Cooperative HEENT: Atraumatic, PERRLA, EOMI, Normocephalic Oral: No Gingival or Mucosal Lesions/ Ulcerations Neck: Supple, No JVD, Negative Carotid Bruits Lungs: Air entry diminished in bilateral lung bases. No crepitation/rhonchi. No hypoxia or tachypnea Cardiovascular: Regular rate, Regular Rhythm, Normal S1, Normal S2, systolic murmur over cardiac apex and LLSB. Abdomen: Bowel Sounds Present, Soft, Non Tender, Non-Distended : No renal angle tenderness. No suprapubic tenderness. Extremities: ankle edema has resolved, Capillary Refill Less than 3 Seconds Skin: No rashes, No breakdown Musculoskeletal: No Tenderness to Palpation of Joints or Extremities Neurological: Cranial nerves II-XII grossly intact, DTR 2+/4 and Symmetrical, Neuro grossly intact Psych/Mental Status: Normal Affect, Appropriate. Weight / BMI Weight Weight: 195 lb 12.328 oz Body Mass Index (BMI) 34.7 ABG / Lab / Microbiology Data Result Diagrams: 08/12/22 05:15 08/13/22 04:20 Laboratory: Laboratory Results - last 24 hr 08/13/22 04:20: Sodium 138, Potassium 3.3 L, Chloride 107, Carbon Dioxide 26.0, Anion Gap 5, BUN 23 H, Creatinine 1.28 H, Estim Creat Clear Calc 26.10, Est GFR (MDRD) Af Amer 51 L, Est GFR (MDRD) Non-Af 42 L, BUN/Creatinine Ratio 18.0, Glucose 101, Calcium 8.6, Phosphorus 3.3, Magnesium 2.0 Microbiology: Microbiology 08/12/22 01:13 Urine, Clean Catch Legionella Antigen - Final 08/12/22 01:13 Urine, Clean Catch Streptococcus pneumoniae Antigen (M - Final 08/11/22 13:35 Nasal Secretion SARS-CoV-2 & FLU Antigen (Rapid) - Final Radiography Diagnostic Testing: Radiology Impression Echocardiogram 08/11/22 17:06 Interpretation Summary Mild concentric left ventricular hypertrophy. The left ventricular ejection fraction is 65 %. The left atrium is moderately enlarged. Mild diffuse mitral valve thickening. Moderately severe (3+) eccentric mitral valve insufficiency. Mild tricuspid valve insufficiency. Mild-Moderate (1-2+) aortic valve insufficiency. Diastolic function is indeterminate. Ordering Physician: Marina Rogers Referring Physician: Neville Serrano Chi Performed By: Ewa Aceves, KALIE, RVT D/C Instructions Discharge Diet: Low fat / Low cholesterol and 2000 mg Sodium Diet Weight Bearing Status: Weight bearing as tolerated Call your doctor if you observe: Fever of 101 or Higher, Coldness, Increased Pain, Numbness or Tingling, Change in Color, Inability to urinate, Inability to have a bowel movement, Using more than 1 pad per hour, Shortness of breath, Dizziness, Fainting spells, Swelling in the ankles, Chest pain, Prolonged hiccupping, Increased palpitations (irregular heartbeat) and Calf discomfort When: IN 2 WEEKS Meaningful Use Info Meaningful Use Diagnoses (Choose all that apply): CHF CHF JL/ARB ordered at discharge?: Yes Documented LVEF (%): 65 Discharge Plan Admission Admit Date/Time: 08/11/22 16:10 Primary Reason for Your Visit: Acute on chronic HFpEF Attending Provider: Tien Varma Primary Care Provider: Neville Serrano Chi Consulting Providers: Marina Rogers Discharge Orders/Prescriptions Prescriptions: New aspirin 81 mg Tablet,Delayed Release (Dr/Ec) 81 mg PO BREAKFAST Qty: 30 2RF spironolactone 25 mg Tablet 12.5 mg PO DAILY Qty: 30 1RF furosemide 40 mg tablet 40 mg PO DAILY Qty: 30 2RF Rx Instructions: Take an additional 40 mg dose at 5 PM for increased leg swelling or weight gain 5 pounds in 1 week. atorvastatin 40 mg tablet 40 mg PO QHS Qty: 30 2RF lisinopril 10 mg tablet 10 mg PO DAILY Qty: 30 2RF Continued levothyroxine 25 MCG tablet 88 mcg PO DAILY atenolol [Tenormin] 50 MG tablet 50 mg PO DAILY paroxetine HCl 40 mg tablet 40 mg PO DAILY Discontinued amlodipine 5 mg tablet 5 mg PO DAILY Referrals / Follow Up: Jeovanny Bal MD [Med Staff - Active Staff] - Within 1 Month Neville Serrano Chi, MD [Primary Care Provider] - Within 2 Weeks Disposition Disposition (needs filled in before D/C Order can be placed): Home, Self Care Charges/Coding Visit Charges Inpatient E&M: 84520 Disch Hosp >30min
[2022-08-13 08:38] VITALS: BP 134/48; PULSE 78; RESP 18; TEMP 36.6; O2SAT 95
[2022-08-13] MEDS: 0.9% Saline Lock 10 ML Syringe IV (08:40)
[2022-08-13] MEDS: Enoxaparin 40 MG/0.4 ML Syringe SC (08:40)
[2022-08-13] MEDS: Furosemide 40 MG/4 ML Vial IV (08:41)
[2022-08-13] MEDS: Spironolactone 25 MG Tablet PO (08:41)
[2022-08-13] MEDS: Atenolol 50 MG Tablet PO (08:41)
[2022-08-13] MEDS: amLODIPine 5 MG Tablet PO (08:41)
[2022-08-13] MEDS: Aspirin E.C. 81 MG Tablet PO (08:41)
--- NOTE | 2022-08-13 10:24 | PHA.DC.MC ---
Pharmacy Service has performed discharge medication reconciliation and counseling for this patient. 1. ASPIRIN 81MG PO BREAKFAST 2. ATORVASTATIN 40MG PO QHS 3. FUROSEMIDE 40MG PO DAILY (MAY TAKE AN ADDITIONAL DOSE AT 5PM FOR INCREASED SWELLING OR 5 LBS WEIGHT GAIN IN 1 WEEK) 4. LISINOPRIL 10MG PO DAILY 5. SPIRONOLACTONE 12.5MG PO DAILY The patient's discharge medication list was reviewed for discrepancies and discrepancies were resolved. Home Medications atenolol 50 mg tablet (Tenormin) 50 mg PO DAILY BP 07/20/15 levothyroxine 25 mcg tablet 88 mcg PO DAILY . 07/20/15 paroxetine HCl 40 mg tablet 40 mg PO DAILY . 08/11/22 aspirin 81 mg tablet,delayed release 81 mg PO BREAKFAST #30 tabs 08/13/22 atorvastatin 40 mg tablet 40 mg PO QHS #30 tabs 08/13/22 furosemide 40 mg tablet 40 mg PO DAILY #30 tabs 08/13/22 lisinopril 10 mg tablet 10 mg PO DAILY #30 tabs 08/13/22 spironolactone 25 mg tablet 12.5 mg PO DAILY #30 tabs 08/13/22 The patient was counseled on the following discharge medications and changes in medications for homegoing were reviewed. The Reason for Use, instructions for use, and potential side effects were reviewed for all new medications. The patient's questions regarding all of their medications were answered. The patient was able to verbally demonstrate an understanding of their discharge medications.
== END 2022-08-13 12:42 | disposition home or self-care (01) | DRG 291 ==
LOC: ED 16:13 → PCU 16:18
PROVIDERS: Admitting Provider Family Medicine; Emergency Provider Emergency Medicine; PCP Family Medicine Geriatric Medicine; Visit Provider Internal Medicine
DX: I13.0 Hypertensive heart and chronic kidney disease with heart failure and stage 1 through stage 4 chronic kidney disease, or unspecified chronic kidney disease (principal); I50.33 Acute on chronic diastolic (congestive) heart failure; E03.9 Hypothyroidism, unspecified; N18.32 Chronic kidney disease, stage 3b; E78.5 Hyperlipidemia, unspecified; I08.0 Rheumatic disorders of both mitral and aortic valves; F41.9 Anxiety disorder, unspecified; F32.A Depression, unspecified; R09.02 Hypoxemia; E66.9 Obesity, unspecified; Z68.34 Body mass index [BMI] 34.0-34.9, adult; Z79.899 Other long term (current) drug therapy
CPT/HCPCS: 36415; 71045; 71275; 80048; 80053; 80061; 83735; 83880; 84100; 84145; 84439; 84443; 84484; 85025; 85379; 87428; 87449; 87633; 93005; 93306; 94668; 99252; 99285; J7030; Q9967; A4216; G0463; J1940

== ENCOUNTER → 2022-09-25 | Outpatient (CLI) | payer MEDICARE, OTHER, SELFPAY ==
--- NOTE | 2022-09-25 18:07 | STRESSREP ---
Stress Test Report Pharmacologic myocardial perfusion stress test. 86-year-old lady with a history of congestive heart failure Resting EKG demonstrates sinus rhythm with a rate of 71 bpm. Resting blood pressure is 130/70 mmHg. 0.4 mg of regadenoson was infused per usual protocol followed by rapid intravenous saline flush injection. Continuous EKG monitoring was performed. The maximum heart rate was 96 bpm which was 71% of max impacted heart rate the maximum workload was 1 metabolic equivalent. At rest there were no ST or T wave changes noted to suggest ischemia and at peak infusion nonspecific ST changes were noted which did not meet the criteria for ischemia. No clinical angina is noted. The final blood pressure was 134/72 mmHg. Myocardial perfusion protocol. 13.9 mCi of technetium 99m sestamibi was injected at rest. 0.4 mg of regadenoson was infused per usual protocol. At peak infusion 42.3 mCi of technetium 99m sestamibi was injected stress images were obtained stress and rest images were reconstructed and compared in the short axis vertical long and horizontal long axis. Gated images were also obtained. Perfusion SPECT analysis: Review of the stress images demonstrate normal uptake of tracer noted in all areas of the myocardium except for the mid anterior wall with mild reduction of perfusion present. The resting images similar demonstrated normal uptake of tracer noted in all areas of the myocardium. Mild amount of anterior ischemia cannot be completely excluded and is likely present. Gated SPECT analysis: The gated ejection fraction is 82%. Conclusion: Mildly abnormal pharmacologic myocardial perfusion stress test with mild anterior ischemia. Preserved ejection fraction.
== END | disposition home or self-care (01) ==
LOC: CVS 06:53
PROVIDERS: PCP Family Medicine Geriatric Medicine; Referring Provider Internal Medicine Cardiovascular Disease; Visit Provider Internal Medicine Cardiovascular Disease
DX: R07.9 Chest pain, unspecified (principal); I50.9 Heart failure, unspecified
CPT/HCPCS: 78452; 93017; A9500; A4216; J2785

== ENCOUNTER → 2022-12-05 | Outpatient (CLI) | payer MEDICARE, OTHER, SELFPAY ==
[2022-12-05 17:12] LABS: Absolute Lymphocyte Count 2.94 X10^3/uL (0.83-4.51); Absolute Neutrophil Count 2.9 X10^3/uL (2.0-7.7); Basophil# 0.08 X10^3/uL; Basophil% 1.2 % (0-1); Eosinophils% 4.4 % (0-5); Hematocrit 38.2 % (37-47); Hemoglobin 12.6 g/dL (12.0-15.0); Lymphocyte # 2.94 X10^3/ul (0.83-4.51); Lymphocyte % 42.9 % (19-41); Mean Corpuscular Hgb 30.1 pg (27.0-32.0); Mean Corpuscular Volume 91.4 fL (81-99); Mean Platelet Vol. 11.3 fl (6.2-12.0); Monocyte% 8.7 % (0-10); NRBC Flagged by Analyzer 0 % (0-5); Neutrophil # 2.92 X10^3/uL (2.7-7.7); Neutrophil % 42.5 % (47-70); Platelet Count 235 K/mm3 (150-450); RBC Distribution Width CV 13.2 % (11.6-14.6); RBC Distribution Width SD 45.1 fl (35.1-43.9); Red Blood Count 4.18 M/mm3 (4.2-5.4); White Blood Count 6.9 K/mm3 (4.4-11.0)
[2022-12-05 18:41] LABS: Vitamin D,25 Hydroxy 26.4 ng/mL
[2022-12-05 18:49] LABS: ALB/GLOB Ratio 0.8 RATIO (0.9-2.4); AST(SGOT) 17 U/L (15-37); Alanine Aminotransfer ALT/SGPT 23 U/L (13-56); Albumin, Serum 3.3 g/dL (3.2-5.0); Alkaline Phosphatase 93 U/L (45-117); Anion Gap 8 (5-15); BUN 35 mg/dL (7-18); BUN/Creat Ratio 22.2 RATIO (10-20); Calcium,Total 8.8 mg/dL (8.5-10.1); Chloride 106 mmol/L (98-107); Creatinine, Serum 1.58 mg/dL (0.55-1.02); EST Glomerular Filtration Rate 33 mL/min (>60); Est Glom Filt Rate - Afr Amer 40 mL/min (>60); Globulin 3.9 g/dL (2.2-4.2); Glucose 106 mg/dL (74-106); Potassium 4.1 mmol/L (3.5-5.1); Protein, Total 7.2 g/dL (6.4-8.2); Sodium Level 137 mmol/L (136-145); Thyroid Stim Hormone (TSH) 1.61 uIU/mL (0.358-3.74)
== END | disposition home or self-care (01) ==
PROVIDERS: PCP Family Medicine Geriatric Medicine; Visit Provider Family Medicine Geriatric Medicine
DX: I10 Essential (primary) hypertension (principal); E55.9 Vitamin D deficiency, unspecified
CPT/HCPCS: 36415; 80053; 82306; 84443; 85025

== ENCOUNTER 2023-02-28 10:09 | Inpatient (IN) | payer MEDICARE, OTHER, SELFPAY ==
[2023-02-28] VITALS (18 sets, daily range): BP systolic 93–126; BP diastolic 44–84; PULSE 63–89; RESP 14–22; TEMP 36–36.8; O2SAT 95–100; BMI 37.2; BMI 36.6
--- NOTE | 2023-02-28 10:36 | ED.VIS.CHEST ---
HPI History of Present Illness Chief Complaint: Chest Pain Detail of Chief Complaint: Bilateral anterior chest indigestion Onset/Context/Timing Onset: Yesterday and Hours (Started at 1400 and stopped at 0300 today.) Activity at onset: sudden Timing: Intermittent Quality: Positive for Indigestion Location: Right Chest and Left Chest Current Severity: Gone Maximum Severity: Moderate Worsened By: Nothing Relieved By: Nothing Associated Symptoms: Positive for Nausea, Diaphoresis and Dyspnea; Negative for Cough, Fever, Lightheadedness, Acid Reflux or Palpitations Narrative Narrative: Patient is an 87-year-old woman with history of hypertension, valvular heart disease, stage III chronic kidney disease, hyperlipidemia and CHF. She was diagnosed with CA joanugh earlier this year. Patient had an outpatient stress test that revealed mild reducible anterior ischemia. There is no cath report or other cardiovascular report. Patient states he has never had an RI. There is no record of her having an RI. She denies history of hiatal hernia, reflux or peptic ulcer disease. Denies black or maroon-colored stool. She did have an episode of emesis and there was no coffee grounds noted. She states she was sprain weeds with weed killer when this started. She did have an apple prior to it. She denied pain radiating through to her back. She denied pain going to her jaw, neck or upper extremity or extremities. Prior Similar Symptoms: No Recent Illness/Hospitalization: Yes (August/September this year for CHF. Patient had an abnormal stress test.) CVD Risk Factors: Positive for Hypertension and Hypercholesterolemia; Negative for Diabetes, Family History 1' </=55 or Smoking PE Risk Factors: Negative for Recent Travel/Surgery, Recent Immobilization, Prior DVT or PE, Cancer or OCP + Smoking + >/=35 TAD Risk Factors: Negative for Marfan's Syndrome, Hypertension or Family History [facility] Medical History Anxiety and depression CHF (congestive heart failure) CKD (chronic kidney disease), stage III HLD (hyperlipidemia) Hypothyroidism Obesity Home Medications paroxetine HCl 40 mg tablet 40 mg PO DAILY . 08/11/22 [History Last Taken 02/27/23] aspirin 81 mg tablet,delayed release 81 mg PO BREAKFAST #30 tabs 08/13/22 [Rx Last Taken 02/28/23] levothyroxine 88 mcg tablet 88 mcg PO DAILY 08/22/22 [History Last Taken 02/27/23] atenolol 50 mg tablet (Tenormin) 50 mg PO DAILY BP #90 tabs 10/01/22 [Rx Last Taken 02/28/23] atorvastatin 40 mg tablet 40 mg PO QHS #90 tabs 10/01/22 [Rx Last Taken 02/27/23] furosemide 40 mg tablet 40 mg PO DAILY #90 tabs 10/01/22 [Rx Last Taken 02/27/23] lisinopril 10 mg tablet 10 mg PO DAILY #90 tabs 10/01/22 [Rx Last Taken 02/28/23] spironolactone 25 mg tablet 12.5 mg (1/2 x 25 mg) PO DAILY #45 tabs 10/01/22 [Rx Last Taken 02/27/23] Allergy/AdvReac Type Severity Reaction Status Date / Time No Known Allergies Allergy Verified 02/28/23 10:11 Family History Mother Heart disease Hypertension CHF (congestive heart failure) Father Heart disease Hypertension CHF (congestive heart failure) CAD (coronary artery disease) Myocardial infarction Surgical History History of carpal tunnel release History of tonsillectomy and adenoidectomy Social History household members: none Smoking Status: Never smoker alcohol intake: never substance use type: does not use ROS ROS ED Constitutional Constitutional ED: Denies chills, fever(s), subjective, sweats or weight loss Eyes Eyes: Reports none; Denies blurry vision or change in vision ENT ENT ED: Denies ear pain or rhinorrhea Cardiovascular Cardiovascular: Reports as per HPI; Denies orthopnea or paroxysmal nocturnal dyspnea Respiratory/Chest Respiratory/Chest: Reports dyspnea and dyspnea on exertion; Denies cough, orthopnea, paroxysmal nocturnal dyspnea or sputum Gastrointestinal Gastrointestinal: Reports nausea and vomiting; Denies abdominal pain, constipation, diarrhea or melena Genitourinary Genitourinary ED: Denies dysuria, hematuria or urinary frequency Musculoskeletal Musculoskeletal: Denies arthralgias, back pain or myalgias Integumentary Denies rash Neurologic Neurologic: Denies headache(s), paresthesias or weakness Psychiatric Psychiatric: Denies anxiety or depression Endocrine Endocrinology: Denies cold intolerance or heat intolerance Hematologic/Lymphatic Hematologic/Lymphatic: Denies easy bleeding or easy bruising EXAM Physical Exam Const Vital Signs: 02/28/23 10:10 02/28/23 10:10 02/28/23 11:25 Temperature 96.8 F L Temperature Source Temporal Pulse Rate 89 Respiratory Rate 18 Respiratory Effort Normal Blood Pressure 112/57 L Blood Pressure Mean 75 Pulse Ox 97 Oxygen Delivery Method Room Air Room Air 02/28/23 11:10 02/28/23 12:00 Temperature Temperature Source Pulse Rate 65 65 Respiratory Rate 14 Respiratory Effort Blood Pressure 101/76 Blood Pressure Mean 84 Pulse Ox 98 98 Oxygen Delivery Method Room Air Room Air Positive well nourished, well developed and obese Constitutional Narrative: Vital signs are normal. General Appearance ED: well developed and NAD; Negative for pallor Nutritional Appearance: obese HEENT Reports TM's clear and moist mucous membranes Tympanic Membrane ED: Yes TM's clear Eyes PERRL and EOMs intact bilaterally General Eye ED: Negative for pale conjunctiva or scleral icterus Neck no lymphadenopathy, supple and no JVD Chest Wall inspection of chest normal and palpation of chest normal Resp normal respiratory effort and clear to auscultation bilaterally Cardio regular rate, regular rhythm, S1 normal heart sound, S2 normal heart sound and no murmurs Peripheral Pulses: pulses 2+ throughout GI normal to inspection, nondistended, normoactive bowel sounds, soft to palpation, non-tender, non-distended and no masses; Negative for hepatosplenomegaly GI Narrative: There is no palpable or pulse mass. There is no abdominal bruit. Back/Spine no CVA tenderness Extremity Extremity Narrative: Patient has mild pitting edema. Greater left than right. Patient states she had problem with swelling in her left lower extremity due to prior ankle flare this is a chronic issue. General Extremety ED: Yes edema General Extremity: edema Neuro oriented x3, CN's II-XII intact bilaterally, no sensory deficits noted and gait normal Sensorium / Orientation: awake and alert Psych mental status grossly normal Skin no rashes or lesions noted and no wounds General Skin Exam: Negative for jaundice or pallor Heart Score History: Slightly/Non-Suspicious Age: >/= 65 years Risk Factors: 1 or 2 Risk Factors Troponin: >/=3 x Normal Limit Score: 5 MDM MDM MDM Narrative Medical decision making narrative: Patient presents with indigestion. This may be due to cardiac versus noncardiac etiology. EKG, chest x-ray appropriate blood work was obtained as well as 2-hour troponin. Will discuss case with cardiology since the stress test that was performed in September that revealed mild reducible anterior ischemia. There was no follow-up cath that I am aware of. Chest x-ray was obtained to assess for hiatal hernia or pulmonary cause. History & Record Review Additional record(s) reviewed:: Prior inpatient record (Patient admitted for new onset CHF earlier this year.), Prior outpatient record and Prior labs Lab Data Attestation: I reviewed the patient's lab results. Lab results narrative: CBC is unremarkable. BMP is remarkable for BUN of 36 and creatinine of 1.69 with a GFR of 30. Glucose is 122 with a normal CO2 and anion gap. First troponin is 17,877. Labs: Laboratory Results - last 24 hr 02/28/23 11:37 WBC 8.2 RBC 4.46 Hgb 13.3 Hct 40.1 MCV 89.9 MCH 29.8 MCHC 33.2 RDW Std Deviation 40.7 RDW Coeff of Danelle 12.4 Plt Count 242 MPV 10.8 Immature Gran % (Auto) 0.200 Neut % (Auto) 68.0 Lymph % (Auto) 24.0 [place] % (Auto) 6.7 Eos % (Auto) 0.5 Baso % (Auto) 0.6 Absolute Neuts (auto) 5.6 Absolute Lymphs (auto) 1.96 Nucleated RBC % 0 Sodium 134 L Potassium 4.1 Chloride 104 Carbon Dioxide 24.0 Anion Gap 6 BUN 36 H Creatinine 1.69 H Estim Creat Clear Calc 19.40 Est GFR (MDRD) Af Amer 37 L Est GFR (MDRD) Non-Af 30 L BUN/Creatinine Ratio 21.3 H Glucose 122 H Calcium 8.9 Troponin I High Sens 63875 H* Radiography Chest X-Ray - ED: 1 View and Read by ED Physician (Single view which reveals borderline cardiomegaly. Cardiac borders normal. Lung parenchyma is unremarkable. Perihilar regions unremarkable. Osseous trucks unremarkable. There is no evidence of effusion, infiltrate or pneumothorax. This was independent reviewed interpreted by me at 1122.) Diagnostic Testing: Clinical Impression(s) from Imaging Studies Chest X-Ray 02/28/23 10:55 IMPRESSION: Borderline cardiomegaly. No acute abnormality is seen. Electronically Signed: Louis Felipe MD at 12:08 EDT , EKG Initial EKG: Attestation: I personally reviewed and interpreted this EKG as follows: Interpretation: Sinus Rhythm (Rate is 73. The EKG in my opinion is normal. MI interval is 176 milliseconds. QRS duration 82 ms. QT duration 414 ms. [place] is normal. Computer reads and ossific changes.) Management Discussion w/another healthcare provider: Hospitalist and Shovel Mechanic (Case discussed with Dr. Mcdonald. He would like patient loaded with Plavix. Plan is to perform cardiac catheterization on Friday. He does not want her anticoagulated since she is pain-free. Presumption is that she completed her infarct.) Critical Care Time Critical Care Time: Yes Critical care time (excluding procedures): 30-74 minutes (33), Including time spent: (History, physical, documentation, review of prior records), Discussing w/Patient &/or Family/Coil Taper, Discussing w/Consultants (Discussed with cardiology and hospitalist for admission) and Arranging Admission or Transfer Discharge Plan Dx/Rx/DC Orders Clinical Impression: Non-ST elevated myocardial infarction, HTN (hypertension), benign, HLD (hyperlipidemia), Hypothyroidism, CKD (chronic kidney disease), stage III Disposition Disposition: Acute Care Hospital [facility]
--- NOTE | 2023-02-28 10:55 | RAD_ITS ---
STUDY: X-RAY CHEST REASON FOR EXAM: Female, 87 years old. Chest pain TECHNIQUE: Single AP portable view of the chest. COMPARISON: Comparison is made with prior study August 07, 2022. FINDINGS: EKG electrodes are seen. The lungs are clear and expanded. There is no demonstrated pleural abnormality. There is borderline cardiomegaly. Normal mediastinum and kymberly. Normal visualized pulmonary arteries. Normal visualized aortic arch and descending thoracic aorta. There are diffuse degenerative changes of the visualized thoracic spine. Calcific tendinitis of the right shoulder. There is no demonstrated abnormality of the visualized soft tissue structures of the upper abdomen. RAD/Chest 1 View (Portable) IMPRESSION: Borderline cardiomegaly. No acute abnormality is seen. Electronically Signed: Louis Felipe MD at 12:08 EDT ,
[2023-02-28] MEDS: Aspirin 81 MG TAB.CHEW 324 MG PO (11:34)
[2023-02-28 11:45] LABS: Absolute Lymphocyte Count 1.96 X10^3/uL (0.83-4.51); Absolute Neutrophil Count 5.6 X10^3/uL (2.0-7.7); Basophil# 0.05 X10^3/uL; Basophil% 0.6 % (0-1); Eosinophil# 0.04 X10^3/uL; Eosinophils% 0.5 % (0-5); Hematocrit 40.1 % (37-47); Hemoglobin 13.3 g/dL (12.0-15.0); Lymphocyte # 1.96 X10^3/ul (0.83-4.51); Mean Corp Hgb Conc 33.2 g/dL (32-36); Mean Corpuscular Hgb 29.8 pg (27.0-32.0); Mean Corpuscular Volume 89.9 fL (81-99); Mean Platelet Vol. 10.8 fl (6.2-12.0); Monocyte# 0.55 X10^3/uL; Monocyte% 6.7 % (0-10); NRBC Flagged by Analyzer 0 % (0-5); Neutrophil # 5.55 X10^3/uL (2.7-7.7); Platelet Count 242 K/mm3 (150-450); RBC Distribution Width CV 12.4 % (11.6-14.6); RBC Distribution Width SD 40.7 fl (35.1-43.9); Red Blood Count 4.46 M/mm3 (4.2-5.4); White Blood Count 8.2 K/mm3 (4.4-11.0)
[2023-02-28 12:11] LABS: Anion Gap 6 (5-15); BUN 36 mg/dL (7-18); BUN/Creat Ratio 21.3 RATIO (10-20); Calcium,Total 8.9 mg/dL (8.5-10.1); Chloride 104 mmol/L (98-107); Creatinine, Serum 1.69 mg/dL (0.55-1.02); EST Glomerular Filtration Rate 30 mL/min (>60); Est Glom Filt Rate - Afr Amer 37 mL/min (>60); Glucose 122 mg/dL (74-106); Potassium 4.1 mmol/L (3.5-5.1); Sodium Level 134 mmol/L (136-145); Troponin-I HS (w/2H Reflex) 17877 pg/mL (3.0-54.0)
[2023-02-28] MEDS: Clopidogrel Bisulfate 300 MG Tablet PO (13:03)
[2023-02-28 13:40] LABS: Reflex Troponin-HS? (from REC) Y
[2023-02-28 14:45] LABS: Troponin-I HS 21692 pg/mL (3.0-54.0)
--- NOTE | 2023-02-28 16:09 | EKG12_ITS ---
Test Reason : AM EKG Blood Pressure : / mmHG Vent. Rate : 086 BPM Atrial Rate : 086 BPM P-R Int : 094 ms QRS Dur : 096 ms QT Int : 354 ms P-R-T Axes : 007 -52 064 degrees QTc Int : 423 ms Sinus rhythm with short [place] Left axis deviation Incomplete right bundle branch block Abnormal ECG When compared with ECG of 03-MAR-2023 12:02, MANUAL COMPARISON REQUIRED, DATA IS UNCONFIRMED Confirmed by RUSTY BINGHAM, ZAIN ([id number]), assistant production editor YNES BERRIOS ([id number]) on 03/17/2023 10:46:27 AM Referred By: ARIANNE Confirmed By:JEFRY OJEDA MD
[2023-02-28] MEDS: Nitroglycerin Infusion 250 ML 6 MG CONT INF (16:12)
--- NOTE | 2023-02-28 16:50 | PCM.HP.STD ---
HPI - General General Date of Admission: 02/28/23 HPI Narrative ANDREW MOMIN, is a 87 F who presents with chest pain that started last evening. She is unclear as to how long it lasted and she is unsure whether or not it completely went away or features diminished in intensity. However she had significant chest pain at around 3 PM yesterday afternoon and then it slightly improved or resolved and then this morning it recurred with similar intensity as yesterday afternoon so she presented to the ER. In the ER she had troponin of over 17,000 which has now increased to 21,000. She restarted having some more chest pain so cardiology was notified and they recommended a heparin drip as well as nitro drip. No ischemic changes on the EKG are evident. The chest pain sits over her left chest without any significant radiation. No lightheadedness or dizziness. [facility] Medical History (Updated 02/28/23 @ 14:47 by Teri Kent) Anxiety Anxiety and depression CHF (congestive heart failure) CKD (chronic kidney disease), stage III Depression HLD (hyperlipidemia) Hypertension Hypothyroidism Myocardial infarct Non-smoker Obesity Home Medications paroxetine HCl 40 mg tablet 40 mg PO DAILY . 08/11/22 [History Last Taken 02/27/23] aspirin 81 mg tablet,delayed release 81 mg PO BREAKFAST #30 tabs 08/13/22 [Rx Last Taken 02/28/23] levothyroxine 88 mcg tablet 88 mcg PO DAILY 08/22/22 [History Last Taken 02/27/23] atenolol 50 mg tablet (Tenormin) 50 mg PO DAILY BP #90 tabs 10/01/22 [Rx Last Taken 02/28/23] atorvastatin 40 mg tablet 40 mg PO QHS #90 tabs 10/01/22 [Rx Last Taken 02/27/23] furosemide 40 mg tablet 40 mg PO DAILY #90 tabs 10/01/22 [Rx Last Taken 02/27/23] lisinopril 10 mg tablet 10 mg PO DAILY #90 tabs 10/01/22 [Rx Last Taken 02/28/23] spironolactone 25 mg tablet 12.5 mg (1/2 x 25 mg) PO DAILY #45 tabs 10/01/22 [Rx Last Taken 02/27/23] Allergy/AdvReac Type Severity Reaction Status Date / Time No Known Allergies Allergy Verified 02/28/23 10:11 Family History Mother Heart disease Hypertension CHF (congestive heart failure) Father Heart disease Hypertension CHF (congestive heart failure) CAD (coronary artery disease) Myocardial infarction Surgical History History of carpal tunnel release History of tonsillectomy and adenoidectomy Social History household members: none Smoking Status: Never smoker alcohol intake: never substance use type: does not use ROS Constitutional Constitutional: Denies chills, fatigue, fever(s) or malaise Eyes Eyes: Denies blurry vision ENT HEENT: Denies headache(s) or nasal discharge Cardiovascular Cardiovascular: Reports chest pain and dyspnea on exertion; Denies syncope Respiratory/Chest Respiratory/Chest: Denies cough, shortness of breath at rest or shortness of breath with exertion Gastrointestinal Gastrointestinal: Denies constipation, diarrhea, nausea or vomiting Genitourinary Genitourinary: Denies dysuria Neurologic Neurologic: Denies focal weakness, numbness or tremor(s) Psychiatric Psychiatric: Denies anxiety or depression Vital Signs Vital Signs Vital Signs: 02/28/23 10:10 02/28/23 10:10 02/28/23 11:25 Temperature 96.8 F L Temperature Source Temporal Pulse Rate 89 Respiratory Rate 18 Respiratory Effort Normal Blood Pressure 112/57 L Blood Pressure Mean 75 Blood Pressure Source Blood Pressure Position Blood Pressure Location Pulse Ox 97 Oxygen Delivery Method Room Air Room Air Oxygen Flow Rate (L/min) 02/28/23 11:10 02/28/23 12:00 02/28/23 14:24 Temperature 98.0 F Temperature Source Oral Pulse Rate 65 65 67 Respiratory Rate 14 18 Respiratory Effort Blood Pressure 101/76 115/84 H Blood Pressure Mean 84 94 Blood Pressure Source Monitor Blood Pressure Position Semi-Fowlers Blood Pressure Location Right Arm Pulse Ox 98 98 96 Oxygen Delivery Method Room Air Room Air Room Air Oxygen Flow Rate (L/min) 02/28/23 13:00 02/28/23 14:56 02/28/23 16:12 Temperature 97.6 F L Temperature Source Pulse Rate 78 80 67 Respiratory Rate 14 20 H Respiratory Effort Blood Pressure 110/78 119/61 Blood Pressure Mean 88 80 Blood Pressure Source Monitor Blood Pressure Position Semi-Fowlers Blood Pressure Location Right Arm Pulse Ox 100 95 99 Oxygen Delivery Method Nasal Cannula Oxygen Flow Rate (L/min) 2 Weight Weight: 206 lb 9.17 oz Body Mass Index (BMI) 36.6 Physical Exam Narrative General: Alert, Oriented x3, Cooperative, No apparent distress HEENT: Atraumatic, PERRLA, EOMI, Normocephalic Oral: Moist Mucosa Neck: Supple, No JVD Lungs: Diminished, Normal air movement, No rhonchi, No wheeze, No rales Cardiovascular: Regular rate, Regular Rhythm, Normal S1, Normal S2, No murmurs Abdomen: Soft, Non Tender, Non-Distended, No Hepato-splenomegaly Extremities: No edema, Capillary Refill Less than 3 Seconds Skin: No rashes, No breakdown Musculoskeletal: No Tenderness to Palpation of Joints or Extremities Neurological: Cranial nerves II-XII grossly intact, Motor Exam 5/5 strength throughout, Sensory exam intact to light touch and pain Psych/Mental Status: Normal Affect, Appropriate Results Lab / Micro Data 02/28/23 11:37 02/28/23 11:37 Labs: Laboratory Results - last 24 hr 02/28/23 11:37: WBC 8.2, RBC 4.46, Hgb 13.3, Hct 40.1, MCV 89.9, MCH 29.8, MCHC 33.2, RDW Std Deviation 40.7, RDW Coeff of Danelle 12.4, Plt Count 242, MPV 10.8, Immature Gran % (Auto) 0.200, Neut % (Auto) 68.0, Lymph % (Auto) 24.0, [place] % (Auto) 6.7, Eos % (Auto) 0.5, Baso % (Auto) 0.6, Absolute Neuts (auto) 5.6, Absolute Lymphs (auto) 1.96, Nucleated RBC % 0, Sodium 134 L, Potassium 4.1, Chloride 104, Carbon Dioxide 24.0, Anion Gap 6, BUN 36 H, Creatinine 1.69 H, Estim Creat Clear Calc 19.40, Est GFR (MDRD) Af Amer 37 L, Est GFR (MDRD) Non-Af 30 L, BUN/Creatinine Ratio 21.3 H, Glucose 122 H, Calcium 8.9, Troponin I High Sens [id number] H* 02/28/23 13:55: Troponin I High Sens [id number] H* Radiology Impression Chest X-Ray 02/28/23 10:55 IMPRESSION: Borderline cardiomegaly. No acute abnormality is seen. Electronically Signed: Louis Felipe MD at 12:08 EDT , Assessment & Plan Assessment/Plan (1) Non-ST elevated myocardial infarction: PLAN: Plan 1. Non-STEMI/HTN/HLD/chronic diastolic CHF ? Troponin is elevated to over 17,000 ? Appreciate cardiology's assistance ? Continue with the heparin drip as well as the nitroglycerin drip ? Continue with aspirin was loaded with Plavix in the ER ? Can resume her home blood pressure medications, will monitor and make adjustments ? As she had an echo in August 2022 with an EF of 65% and moderately severe mitral valve insufficiency ? Her stress test in September was slightly abnormal with mild anterior ischemia 2. Hypothyroidism ? Stable ? Continue with Synthroid 3. Anxiety/depression ? Stable ? Continue with Paxil DVT: Heparin drip 75 minutes was spent on direct patient care, including documentation as well as chart review and collaboration with colleagues Charges/Coding Visit Charges Inpatient E&M: 34568 Init Hosp L3
[2023-02-28 18:22] LABS: Partial Thromboplast Time 23.4 Seconds (24.1-36.2); Prothrombin Time (Protime)PT. 13.6 SECONDS (11.7-14.9)
[2023-02-28 18:30] LABS: Troponin-I HS 21716 pg/mL (3.0-54.0)
[2023-02-28] MEDS: Heparin Injection (Vial) 5,000 UNIT/ML VIAL 7500 UNIT IV (18:41)
[2023-02-28] MEDS: HEPARIN/D5w 25,000 UNITS 25,000 UNITS/250 ML IV.SOLN. 14 UNITS CONT INF (18:43)
[2023-02-28] MEDS: 0.9% Saline Lock 10 ML Syringe IV (18:44)
[2023-02-28] MEDS: Atorvastatin Calcium 40 MG Tablet PO (20:39)
[2023-03-01] VITALS (23 sets, daily range): BP systolic 88–124; BP diastolic 41–57; PULSE 61–75; RESP 16–21; TEMP 36.1–36.8; O2SAT 93–99
[2023-03-01 01:02] LABS: Partial Thromboplast Time 193.5 Seconds (24.1-36.2)
[2023-03-01] MEDS: Levothyroxine 88 MCG Tablet PO (06:23)
[2023-03-01 07:00] LABS: Absolute Lymphocyte Count 3.18 X10^3/uL (0.83-4.51); Absolute Neutrophil Count 4.9 X10^3/uL (2.0-7.7); Basophil# 0.06 X10^3/uL; Basophil% 0.6 % (0-1); Eosinophil# 0.18 X10^3/uL; Eosinophils% 1.9 % (0-5); Hematocrit 36.3 % (37-47); Hemoglobin 11.7 g/dL (12.0-15.0); Lymphocyte # 3.18 X10^3/ul (0.83-4.51); Lymphocyte % 34.2 % (19-41); Mean Corp Hgb Conc 32.2 g/dL (32-36); Mean Corpuscular Hgb 29.8 pg (27.0-32.0); Mean Corpuscular Volume 92.6 fL (81-99); Mean Platelet Vol. 11.2 fl (6.2-12.0); Monocyte# 0.93 X10^3/uL; NRBC Flagged by Analyzer 0 % (0-5); Neutrophil # 4.92 X10^3/uL (2.7-7.7); Neutrophil % 52.9 % (47-70); Platelet Count 212 K/mm3 (150-450); RBC Distribution Width CV 12.8 % (11.6-14.6); RBC Distribution Width SD 43.2 fl (35.1-43.9); Red Blood Count 3.92 M/mm3 (4.2-5.4); White Blood Count 9.3 K/mm3 (4.4-11.0)
[2023-03-01 07:39] LABS: Anion Gap 7 (5-15); BUN 51 mg/dL (7-18); Calcium,Total 8.2 mg/dL (8.5-10.1); Chloride 103 mmol/L (98-107); Creatinine, Serum 2.04 mg/dL (0.55-1.02); EST Glomerular Filtration Rate 25 mL/min (>60); Est Glom Filt Rate - Afr Amer 30 mL/min (>60); Estimated Creatinine Clearance 16.07 ml/min; Glucose 127 mg/dL (74-106); Potassium 4.2 mmol/L (3.5-5.1); Sodium Level 134 mmol/L (136-145)
[2023-03-01] MEDS: Aspirin E.C. 81 MG Tablet PO (09:11)
[2023-03-01] MEDS: Paroxetine 20 MG Tablet 40 MG PO (09:11)
[2023-03-01] MEDS: Spironolactone 25 MG Tablet 12.5 MG PO (09:12)
[2023-03-01] MEDS: Lisinopril 10 MG Tablet PO (09:12)
[2023-03-01] MEDS: Atenolol 50 MG Tablet PO (09:12)
[2023-03-01] MEDS: Furosemide 40 MG Tablet PO (09:15)
--- NOTE | 2023-03-01 09:50 | CASEMGMT ---
RN CM Face to Face with patient for initial transition planning/care coordination assessment. RN CM introduced self and role at [facility]. Patient lying in bed, alert and oriented. Patient willing to participate in assessment and is able to answer all questions appropriately. Care providers, pharmacy, and demographics verified. Patient wishes to discharge home, denies need for home health at this time. Patient states she has no further needs or concerns at this time. CM to follow for discharge planning needs that may arise. PCP: Zach Specialists: none Preferred Pharmacy: [facility] Insurance: [facility] Prescription Benefit: yes Living Will/HPOA: yes, daughter Sarah Genao LNOK: daughter Living Arrangements: Patient lives alone in a [place] with complete living quarters on lower level, no steps to enter. Patient states she is indepnedent at home. Transportation: self, daughter DME/HHC: Patient denies DME in the home. No previous HHC or SNF Disposition Plan: Patient to discharge home with family support and follow-up plans in place. Kandis BASSN, RN, CM
[2023-03-01 09:55] LABS: Partial Thromboplast Time 66.8 Seconds (24.1-36.2)
--- NOTE | 2023-03-01 12:20 | PN.HOSP_ITS ---
Subjective Subjective Doing well, chest pain is resolved Objective Data Objective Data Vital Signs: Vital Signs Temp Pulse Resp BP Pulse Ox O2 Del Method O2 Flow Rate 98.1 F 61 18 103/51 L 96 Room Air 2 03/01/23 11:00 03/01/23 12:10 03/01/23 12:10 03/01/23 12:10 03/01/23 12:10 03/01/23 12:10 03/01/23 06:00 Oxygen Flow Rate (L/min) 2 Oxygen Delivery Method Room Air Weight: 206 lb 9.17 oz Body Mass Index (BMI) 36.6 Intake & Output: Intake and Output for Last 24 Hours 02/28/23 03/01/23 03/02/23 03:59 03:59 03:59 Intake Total 255.10 / 255.10 103.78 / 103.78 Balance 255.10 / 255.10 103.78 / 103.78 Lab / Micro Data 03/01/23 06:17 03/01/23 06:17 Labs: Laboratory Results - last 24 hr 02/28/23 13:55: Troponin I High Sens [id number] H* 02/28/23 17:47: PT 13.6, INR 1.0, APTT 23.4 L, Troponin I High Sens 10716 H* 03/01/23 00:42: APTT 193.5 H* 03/01/23 06:17: WBC 9.3, RBC 3.92 L, Hgb 11.7 L, Hct 36.3 L, MCV 92.6, MCH 29.8, MCHC 32.2, RDW Std Deviation 43.2, RDW Coeff of Danelle 12.8, Plt Count 212, MPV 11.2, Immature Gran % (Auto) 0.400, Neut % (Auto) 52.9, Lymph % (Auto) 34.2, [place] % (Auto) 10.0, Eos % (Auto) 1.9, Baso % (Auto) 0.6, Absolute Neuts (auto) 4.9, Absolute Lymphs (auto) 3.18, Nucleated RBC % 0, Sodium 134 L, Potassium 4.2, Chloride 103, Carbon Dioxide 24.0, Anion Gap 7, BUN 51 H, Creatinine 2.04 H , Estim Creat Clear Calc 16.07, Est GFR (MDRD) Af Amer 30 L, Est GFR (MDRD) Non- Af 25 L, BUN/Creatinine Ratio 25.0 H, Glucose 127 H, Calcium 8.2 L 03/01/23 09:31: APTT 66.8 H Physical Exam Narrative General: Alert, Oriented x3, Cooperative, No apparent distress HEENT: Atraumatic, PERRLA, EOMI, Normocephalic Oral: Moist Mucosa Neck: Supple, No JVD Lungs: Diminished, Normal air movement, No rhonchi, No wheeze, No rales Cardiovascular: Regular rate, Regular Rhythm, Normal S1, Normal S2, No murmurs Abdomen: Soft, Non Tender, Non-Distended, No Hepato-splenomegaly Extremities: No edema, Capillary Refill Less than 3 Seconds Skin: No rashes, No breakdown Musculoskeletal: No Tenderness to Palpation of Joints or Extremities Neurological: Cranial nerves II-XII grossly intact, Motor Exam 5/5 strength throughout, Sensory exam intact to light touch and pain Psych/Mental Status: Normal Affect, Appropriate Assessment & Plan Assessment/Plan (1) Non-ST elevated myocardial infarction: PLAN: Plan 1. Non-STEMI/HTN/HLD/chronic diastolic CHF ? Troponin is elevated to over 17,000 ? Appreciate cardiology's assistance ? Continue with the heparin drip as well as the nitroglycerin drip ? Continue with aspirin was loaded with Plavix in the ER ? Can resume her home blood pressure medications, will monitor and make adjustments ? As she had an echo in August 2022 with an EF of 65% and moderately severe mitral valve insufficiency ? Her stress test in September was slightly abnormal with mild anterior ischemia 2. Hypothyroidism ? Stable ? Continue with Synthroid 3. Anxiety/depression ? Stable ? Continue with Paxil DVT: Heparin drip Charges/Coding Visit Charges Inpatient E&M: 50173 Subs Hosp L2
--- NOTE | 2023-03-01 13:02 | CON.PCM.CA_ITS ---
Assessment & Plan Assessment/Plan (1) Non-ST elevated myocardial infarction: PLAN: ECG shows normal sinus rhythm with nonspecific ST changes. Presently asymptomatic. Discontinue nitroglycerin infusion. Start on Nitropaste. Continue aspirin and Plavix. Beta-blockers. Switch to metoprolol. Check echo. Further course of action discussed with patient in detail. Coronary angiography versus medical management discussed. Risks benefits and alternatives of coronary angiography discussed with patient in detail. Particular emphasis was given to the risk of contrast-induced nephropathy in view of her baseline renal insufficiency. She understand these and wishes to proceed with coronary angiography and possible revascularization. 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 Bal. (2) CKD (chronic kidney disease), stage III: PLAN: Monitor creatinine. Decrease lisinopril to 5 mg once daily. (3) HLD (hyperlipidemia): PLAN: On atorvastatin. (4) Mitral regurgitation: PLAN: History of moderately severe mitral regurgitation. Repeat echocardiogram. HPI Consult Data Date of Consult: 03/01/23 HPI Narrative Reason for Consultation: NSTEMI HPI Narrative: Patient has past medical history significant for mitral regurgitation, chronic kidney disease, dyslipidemia and hypertension. She presented to the emergency room yesterday with complaints of chest discomfort that started on . She went to sleep with it on . Friday she continued to have chest discomfort and as it was not relieving, she presented to the emergency room. She denies any radiation of the chest discomfort to the arm neck or jaw. Some associated shortness of breath. No diaphoresis. Presently she is asymptomatic. COUNTS INCLUDE 234 BEDS AT THE [facility] Medical History (Updated 03/01/23 @ 13:[address] Georges Mcdonald MD) Anxiety Anxiety and depression CHF (congestive heart failure) CKD (chronic kidney disease), stage III Depression HLD (hyperlipidemia) Hypertension Hypothyroidism Myocardial infarct Non-smoker Obesity Home Medications paroxetine HCl 40 mg tablet 40 mg PO DAILY . 08/11/22 [History Last Taken 02/27/23] aspirin 81 mg tablet,delayed release 81 mg PO BREAKFAST #30 tabs 08/13/22 [Rx Last Taken 02/28/23] levothyroxine 88 mcg tablet 88 mcg PO DAILY 08/22/22 [History Last Taken 02/27/23] atenolol 50 mg tablet (Tenormin) 50 mg PO DAILY BP #90 tabs 10/01/22 [Rx Last Taken 02/28/23] atorvastatin 40 mg tablet 40 mg PO QHS #90 tabs 10/01/22 [Rx Last Taken 02/27/23] furosemide 40 mg tablet 40 mg PO DAILY #90 tabs 10/01/22 [Rx Last Taken 02/27/23] lisinopril 10 mg tablet 10 mg PO DAILY #90 tabs 10/01/22 [Rx Last Taken 02/28/23] spironolactone 25 mg tablet 12.5 mg (1/2 x 25 mg) PO DAILY #45 tabs 10/01/22 [Rx Last Taken 02/27/23] Allergy/AdvReac Type Severity Reaction Status Date / Time No Known Allergies Allergy Verified 02/28/23 10:11 Family History Mother Heart disease Hypertension CHF (congestive heart failure) Father Heart disease Hypertension CHF (congestive heart failure) CAD (coronary artery disease) Myocardial infarction Surgical History History of carpal tunnel release History of tonsillectomy and adenoidectomy Social History household members: none Smoking Status: Never smoker alcohol intake: never substance use type: does not use Physical Exam Const Constitutional Narrative: Comfortable. No apparent distress. Heart sounds 1 and 2 are noted. No murmurs or rubs are noted. Chest is clear to auscultation bilaterally. Alert oriented x3. No ankle edema noted. Risk Stratification Risk Stratification Applicable: No Objective Data Vital Signs: Vital Signs Temp Pulse Resp BP Pulse Ox O2 Del Method O2 Flow Rate 98.1 F 61 18 103/51 L 96 Room Air 2 03/01/23 11:00 03/01/23 12:10 03/01/23 12:10 03/01/23 12:10 03/01/23 12:10 03/01/23 12:10 03/01/23 06:00 Oxygen Flow Rate (L/min) 2 Oxygen Delivery Method Room Air Weight: 206 lb 9.17 oz Body Mass Index (BMI) 36.6 Intake & Output: Intake and Output for Last 24 Hours 02/27/23 02/28/23 03/01/23 23:59 23:59 23:59 Intake Total 80.77 / 180.77 278.11 / 278.11 Balance 80.77 / 180.77 278.11 / 278.11 Lab / Micro Data 03/01/23 06:17 03/01/23 06:17 Labs: Laboratory Results - last 24 hr 02/28/23 13:55: Troponin I High Sens [id number] H* 02/28/23 17:47: PT 13.6, INR 1.0, APTT 23.4 L, Troponin I High Sens [id number] H* 03/01/23 00:42: APTT 193.5 H* 03/01/23 06:17: WBC 9.3, RBC 3.92 L, Hgb 11.7 L, Hct 36.3 L, MCV 92.6, MCH 29.8, MCHC 32.2, RDW Std Deviation 43.2, RDW Coeff of Danelle 12.8, Plt Count 212, MPV 11.2, Immature Gran % (Auto) 0.400, Neut % (Auto) 52.9, Lymph % (Auto) 34.2, [place] % (Auto) 10.0, Eos % (Auto) 1.9, Baso % (Auto) 0.6, Absolute Neuts (auto) 4.9, Absolute Lymphs (auto) 3.18, Nucleated RBC % 0, Sodium 134 L, Potassium 4.2, Chloride 103, Carbon Dioxide 24.0, Anion Gap 7, BUN 51 H, Creatinine 2.04 H , Estim Creat Clear Calc 16.07, Est GFR (MDRD) Af Amer 30 L, Est GFR (MDRD) Non- Af 25 L, BUN/Creatinine Ratio 25.0 H, Glucose 127 H, Calcium 8.2 L 03/01/23 09:31: APTT 66.8 H Cardiology Labs/Tests 02/28/23 17:47: PT 13.6, INR 1.0, APTT 23.4 L 03/01/23 00:42: APTT 193.5 H* 03/01/23 06:17: WBC 9.3, RBC 3.92 L, Hgb 11.7 L, Hct 36.3 L, MCV 92.6, MCH 29.8, MCHC 32.2, Plt Count 212, MPV 11.2, Immature Gran % (Auto) 0.400, Neut % (Auto) 52.9, Lymph % (Auto) 34.2, [place] % (Auto) 10.0, Eos % (Auto) 1.9, Baso % (Auto) 0.6, Absolute Neuts (auto) 4.9, Nucleated RBC % 0, Sodium 134 L, Potassium 4.2, Chloride 103, Carbon Dioxide 24.0, Anion Gap 7, BUN 51 H, Creatinine 2.04 H, Est GFR (MDRD) Af Amer 30 L, Est GFR (MDRD) Non-Af 25 L, BUN/Creatinine Ratio 25.0 H , Glucose 127 H, Calcium 8.2 L 03/01/23 09:31: APTT 66.8 H Rhythm: EKG: ECHO: Stress Test: Cardiac Cath: PCI: CT Surgery: Holter monitor: EPS: PPM: CXR: Chest CT Scan:
--- NOTE | 2023-03-01 13:09 | ECHOCS_ITS ---
Reason For Study: s/p TN Procedure This was a 2D Doppler, Color Flow transthoracic echocardiogram. The study was technically difficult. Contrast injection was performed. Exam performed portable in patient room. Left Ventricle Normal LV size. Left ventricular systolic function is lower limits of normal. The left ventricular ejection fraction is 50 %. Mid-anteroseptal : Hypokinetic. Mid-Anterior : Hypokinetic. There are regional wall motion abnormalities as specified. [place] : Hypokinetic. Right Ventricle Normal RV size. Normal systolic function. Atria The left atrium is mildly enlarged. Normal right atrium. Mitral Valve Normal mitral valve. Moderate (2+) eccentric mitral valve insufficiency. Tricuspid Valve Normal tricuspid valve. Mild (1+) tricuspid valve insufficiency. Pulmonary artery systolic pressure is 45 mmHg. Aortic Valve Trisinus/trileaflet aortic valve. Mild (1+) eccentric aortic valve insufficiency. Pulmonic Valve Normal pulmonic valve. Great Vessels Normal aortic root. The pulmonary artery is normal size. Normal inferior vena cava. Pericardium/Pleural No pericardial effusion. Medication Diluted definity 2ml given slow IV push to enhance endocardial definition. MMode/2D Measurements & Calculations LVIDd: 4.8 cm IVSd: 1.3 cm Ao root diam: 3.1 cm LVIDs: 3.9 cm LVPWd: 0.99 cm LA dimension: 4.7 cm RVDd: 3.1 cm FS: 18.1 % LAV(MOD-bp): 80.5 ml LVAd ap4: 36.8 cm2 SV(MOD-sp4): 81.5 ml LAV(MOD-bp) Indexed: 41.1 ml/m2 LVLd ap4: 8.0 cm LAV(MOD-sp2): 77.4 ml EDV(MOD-sp4): 139.2 ml LAV(MOD-sp4): 76.0 ml EDV(sp4-el): 144.7 ml LVAs ap4: 21.5 cm2 LVLs ap4: 6.5 cm ESV(MOD-sp4): 57.8 ml ESV(sp4-el): 60.8 ml EF(MOD-sp4): 58.5 % EF(sp4-el): 58.0 % SV(sp4-el): 83.9 ml LA A4 area: 24.8 cm2 RA A4 area: 20.6 cm2 Time Measurements MV dec time: 0.23 sec Doppler Measurements & Calculations MV E max chris: 122.9 cm/sec Lat Peak E' Chris: 9.8 cm/sec Med Peak E' Chris: 7.4 cm/sec MV A max chris: 119.4 cm/sec E/E' lat: 12.5 E/E' med: 16.6 MV E/A: 1.0 MV V2 max: 126.1 cm/sec MV P1/2t max chris: 110.7 cm/sec Ao V2 max: 114.0 cm/sec MV max P.4 mmHg MV P1/2t: 66.3 msec Ao max P.2 mmHg MV V2 mean: 70.0 cm/sec Ao V2 mean: 76.2 cm/sec MV mean P.3 mmHg MV dec slope: 489.1 cm/sec2 Ao mean P.7 mmHg MV V2 VTI: 37.5 cm MVA(P1/2t): 3.3 cm2 Ao V2 VTI: 27.1 cm AV (velocity ratio): 1.0 LV V1 max: 116.1 cm/sec MR max chris: 494.8 cm/sec PA V2 max: 68.1 cm/sec LV V1 max P.4 mmHg MR max P.9 mmHg LV V1 mean P.9 mmHg LV V1 mean: 79.9 cm/sec LV V1 VTI: 27.5 cm TR max chris: 324.5 cm/sec TR max P.1 mmHg ECHO/Echo Complete W/ Contrast Interpretation Summary Normal LV size. Left ventricular systolic function is lower limits of normal. The left ventricular ejection fraction is 50 %. There are regional wall motion abnormalities as specified. Pulmonary artery systolic pressure is 45 mmHg. Contrast injection was performed. Ordering Physician: Georges Mcdonald Referring Physician: Neville Serrano Chi Performed By: Guanakito Suarez RCS
[2023-03-01] MEDS: 0.9% Normal Saline (1000mL) 1,000 ML 75 ML IV (13:15)
[2023-03-01] MEDS: 0.9% Saline Lock 10 ML Syringe IV (13:16)
[2023-03-01] MEDS: Nitroglycerin Oint 1 INCH PACKET TD ×2 (14:28→20:31)
[2023-03-01] MEDS: Clopidogrel Bisulfate 75 MG Tablet PO (14:28)
[2023-03-01 16:36] LABS: Partial Thromboplast Time 60.9 Seconds (24.1-36.2)
[2023-03-01] MEDS: HEPARIN/D5w 25,000 UNITS 25,000 UNITS/250 ML IV.SOLN. 11 UNITS CONT INF (17:08)
[2023-03-01] MEDS: Atorvastatin Calcium 40 MG Tablet PO (20:31)
[2023-03-01] MEDS: Metoprolol Tartrate 25 MG Tablet PO (20:31)
[2023-03-01 21:13] LABS: Partial Thromboplast Time 65.7 Seconds (24.1-36.2)
[2023-03-02 03:00] VITALS: BP 121/70; PULSE 73; RESP 16; TEMP 36.1; O2SAT 97
[2023-03-02] MEDS: Levothyroxine 88 MCG Tablet PO (05:07)
[2023-03-02] MEDS: Nitroglycerin Oint 1 INCH PACKET TD ×3 (05:07→22:14)
[2023-03-02] MEDS: HEPARIN/D5w 25,000 UNITS 25,000 UNITS/250 ML IV.SOLN. 11 UNITS CONT INF ×2 (05:10→22:13)
[2023-03-02 05:55] LABS: Absolute Neutrophil Count 3.8 X10^3/uL (2.0-7.7); Basophil# 0.06 X10^3/uL; Basophil% 0.8 % (0-1); Eosinophil# 0.24 X10^3/uL; Eosinophils% 3.1 % (0-5); Hematocrit 34.8 % (37-47); Lymphocyte % 37.3 % (19-41); Mean Corp Hgb Conc 31.6 g/dL (32-36); Mean Corpuscular Hgb 29.4 pg (27.0-32.0); Mean Platelet Vol. 11.1 fl (6.2-12.0); Monocyte# 0.74 X10^3/uL; Monocyte% 9.5 % (0-10); NRBC Flagged by Analyzer 0 % (0-5); Neutrophil # 3.81 X10^3/uL (2.7-7.7); Platelet Count 196 K/mm3 (150-450); RBC Distribution Width CV 12.8 % (11.6-14.6); RBC Distribution Width SD 43.8 fl (35.1-43.9); Red Blood Count 3.74 M/mm3 (4.2-5.4); White Blood Count 7.8 K/mm3 (4.4-11.0)
[2023-03-02 06:22] LABS: Anion Gap 2 (5-15); BUN 57 mg/dL (7-18); BUN/Creat Ratio 35.8 RATIO (10-20); Calcium,Total 8.3 mg/dL (8.5-10.1); Chloride 109 mmol/L (98-107); Creatinine, Serum 1.59 mg/dL (0.55-1.02); EST Glomerular Filtration Rate 33 mL/min (>60); Est Glom Filt Rate - Afr Amer 40 mL/min (>60); Estimated Creatinine Clearance 20.62 ml/min; Glucose 111 mg/dL (74-106); Potassium 4.3 mmol/L (3.5-5.1); Sodium Level 135 mmol/L (136-145)
[2023-03-02 08:58] LABS: Partial Thromboplast Time 70.8 Seconds (24.1-36.2)
[2023-03-02 09:08] VITALS: BP 110/48; PULSE 65; RESP 16; TEMP 36.9; O2SAT 97
[2023-03-02 09:22] VITALS: BP 110/48; PULSE 65
[2023-03-02] MEDS: Aspirin E.C. 81 MG Tablet PO (09:22)
[2023-03-02] MEDS: Metoprolol Tartrate 25 MG Tablet PO ×2 (09:22→22:13)
[2023-03-02] MEDS: Lisinopril 10 MG Tablet 5 MG PO (09:22)
[2023-03-02] MEDS: Furosemide 40 MG Tablet PO (09:22)
[2023-03-02] MEDS: Paroxetine 20 MG Tablet 40 MG PO (09:22)
[2023-03-02] MEDS: Clopidogrel Bisulfate 75 MG Tablet PO (09:22)
--- NOTE | 2023-03-02 10:24 | PCM.PN.HOSP ---
Subjective Subjective Doing very well today, no issues overnight. Denies any chest pain Objective Data Objective Data Vital Signs: Vital Signs Temp Pulse Resp BP Pulse Ox O2 Del Method O2 Flow Rate 98.4 F 65 16 110/48 L 97 Room Air 2 03/02/23 09:08 03/02/23 09:22 03/02/23 09:08 03/02/23 09:22 03/02/23 09:08 03/02/23 09:08 03/01/23 06:00 Oxygen Flow Rate (L/min) 2 Oxygen Delivery Method Room Air Weight: 206 lb 9.17 oz Body Mass Index (BMI) 36.6 Intake & Output: Intake and Output for Last 24 Hours 03/01/23 03/02/23 03/03/23 03:59 03:59 03:59 Intake Total 255.10 / 255.10 1184.58 / 1184.58 132.37 / 132.37 Balance 255.10 / 255.10 1184.58 / 1184.58 132.37 / 132.37 Lab / Micro Data 03/02/23 05:24 03/02/23 05:24 Labs: Laboratory Results - last 24 hr 03/01/23 15:45: APTT 60.9 H 03/01/23 20:50: APTT 65.7 H 03/02/23 05:24: WBC 7.8, RBC 3.74 L, Hgb 11.0 L, Hct 34.8 L, MCV 93.0, MCH 29.4, MCHC 31.6 L, RDW Std Deviation 43.8, RDW Coeff of Danelle 12.8, Plt Count 196, MPV 11.1, Immature Gran % (Auto) 0.300, Neut % (Auto) 49.0, Lymph % (Auto) 37.3, [place] % (Auto) 9.5, Eos % (Auto) 3.1, Baso % (Auto) 0.8, Absolute Neuts (auto) 3.8, Absolute Lymphs (auto) 2.90, Nucleated RBC % 0, Sodium 135 L, Potassium 4.3, Chloride 109 H, Carbon Dioxide 24.0, Anion Gap 2 L, BUN 57 H, Creatinine 1.59 H, Estim Creat Clear Calc 20.62, Est GFR (MDRD) Af Amer 40 L, Est GFR (MDRD) Non-Af 33 L, BUN/Creatinine Ratio 35.8 H, Glucose 111 H, Calcium 8.3 L 03/02/23 08:19: APTT 70.8 H Physical Exam Narrative General: Alert, Oriented x3, Cooperative, No apparent distress HEENT: Atraumatic, PERRLA, EOMI, Normocephalic Oral: Moist Mucosa Neck: Supple, No JVD Lungs: Diminished, Normal air movement, No rhonchi, No wheeze, No rales Cardiovascular: Regular rate, Regular Rhythm, Normal S1, Normal S2, No murmurs Abdomen: Soft, Non Tender, Non-Distended, No Hepato-splenomegaly Extremities: No edema, Capillary Refill Less than 3 Seconds Skin: No rashes, No breakdown Musculoskeletal: No Tenderness to Palpation of Joints or Extremities Neurological: Cranial nerves II-XII grossly intact, Motor Exam 5/5 strength throughout, Sensory exam intact to light touch and pain Psych/Mental Status: Normal Affect, Appropriate Assessment & Plan Assessment/Plan (1) Non-ST elevated myocardial infarction: PLAN: Plan 1. Non-STEMI/HTN/HLD/chronic diastolic CHF ? Troponin is elevated to over 17,000 ? Appreciate cardiology's assistance, plan for cath on Friday ? Continue with the heparin drip ? Continue with aspirin was loaded with Plavix in the ER ? Can resume her home blood pressure medications, will monitor and make adjustments ? As she had an echo in August 2022 with an EF of 65% and moderately severe mitral valve insufficiency ? Her stress test in September was slightly abnormal with mild anterior ischemia 2. Hypothyroidism ? Stable ? Continue with Synthroid 3. Anxiety/depression ? Stable ? Continue with Paxil DVT: Heparin drip Charges/Coding Visit Charges Inpatient E&M: 36473 Subs Hosp L2
[2023-03-02 15:15] VITALS: BP 118/49; PULSE 69; RESP 16; TEMP 36.7; O2SAT 94
[2023-03-02 16:11] LABS: Hematocrit 34.8 % (37-47); Hemoglobin 11.4 g/dL (12.0-15.0)
[2023-03-02 21:15] VITALS: BP 126/60; PULSE 67; RESP 16; TEMP 37; O2SAT 94
[2023-03-02 22:13] VITALS: PULSE 64
[2023-03-02] MEDS: Atorvastatin Calcium 40 MG Tablet PO (22:13)
[2023-03-02] MEDS: 0.9% Saline Lock 10 ML Syringe IV (22:17)
[2023-03-03] VITALS (18 sets, daily range): BP systolic 96–134; BP diastolic 39–80; PULSE 57–77; RESP 16–18; TEMP 36.3–36.9; O2SAT 94–99
--- NOTE | 2023-03-03 05:50 | EKG12_ITS ---
Test Reason : AM EKG Blood Pressure : / mmHG Vent. Rate : 066 BPM Atrial Rate : 066 BPM P-R Int : 186 ms QRS Dur : 094 ms QT Int : 428 ms P-R-T Axes : 065 073 017 degrees QTc Int : 448 ms Sinus rhythm with Premature atrial complexes Nonspecific ST abnormality Abnormal ECG When compared with ECG of 28-FEB-2023 15:07, MANUAL COMPARISON REQUIRED, DATA IS UNCONFIRMED Confirmed by SYD BINGHAM, OSCAR ([id number]), video effects editor EMILY CAMPO ([id number]) on 03/05/2023 6:31:27 AM Referred By: Confirmed By:OSCAR VELARDE MD
[2023-03-03] MEDS: Nitroglycerin Oint 1 INCH PACKET TD ×2 (06:21→20:50)
[2023-03-03] MEDS: Paroxetine 20 MG Tablet 40 MG PO (07:38)
[2023-03-03] MEDS: Metoprolol Tartrate 25 MG Tablet PO ×2 (07:39→20:47)
[2023-03-03] MEDS: Clopidogrel Bisulfate 75 MG Tablet PO (07:39)
[2023-03-03] MEDS: Aspirin E.C. 81 MG Tablet PO (07:39)
[2023-03-03] MEDS: Lisinopril 10 MG Tablet 5 MG PO (07:39)
--- NOTE | 2023-03-03 10:21 | CL.D_ITS ---
Patient Name: ANDREW MOMIN Study Date: 03/03/2023 Performing: Jeovanny Bal MD Ht: 63 inches 160.02 cm : 1935 Wt: 206.57 lbs 93.7 kg Age: 87 Gender: female BSA: 1.96 PROCEDURE(S) PERFORMED DC02-(64918)LHC/COR IC12-(77268/C9600)WILY W/WO PTCA, SINGLE CORONARY ARTERY CLINICAL PROFILE AND INDICATIONS Indications: Worsening Angina Heart Failure: None Stress/Imaging Stress/Image Study Performed: No CAD Presentations: Non-STEMI. Symptom onset Date/Time: 03/02/23 Time Not Available CONCLUSIONS Severe LAD disease moderately severe mitral valve disease and mild to moderate aortic valve disease. RECOMMENDATIONS Referred for immediate PCI DESCRIPTION OF PROCEDURE The patient arrived to the procedure lab. The risks and benefits of the procedure as well as a full description of our services here and current unavailability of surgical backup were fully explained to the patient and/or their significant other prior to the catheterization. The Timeout was completed, verifying the correct patient and procedure. The patient's procedural site was prepped and draped in the usual fashion. Local anesthetic was given subcutaneously to right radial region with Lidocaine 2%. Using a modified Seldinger technique, arterial access was obtained via the right radial artery, a 6Fr sheath was inserted. Left Coronary Artery selective angiography was performed in multiple views using a 5 Fr. 4.0 Greenwood catheter. Right Coronary Artery selective angiography was then performed in multiple views using a 5 Fr. 4.0 [place]wood catheter. CORONARY ANGIOGRAPHY DOMINANCE: Right Dominant LEFT HEART ASSESSMENT Anterior Hypokinesis - Moderate LEFT MAIN: Angiographically normal LEFT ANTERIOR DESCENDING ARTERY: PROX LAD: Proximal long 80% stenotic lesion present. Mild diffuse disease in the distal LAD CIRCUMFLEX ARTERY: Mild luminal irregularities RIGHT CORONARY ARTERY: Mild luminal irregularities VALVE FINDINGS: Mitral Valve Insufficiency - Grade 3 COMPLICATIONS PROCEDURE MEDICATIONS Fentanyl 50 mcg IV Versed 1 mg IV Oxygen: 2 L/min via nasal cannula Heparin given IA 03/03/2023 09:55:02 Verapamil 2.5mg, Ntg 100mcgs, 3000 units of Heparin given IA 03/03/2023 09:55:02 SUMMARY OF HEMODYNAMIC DATA Time AIR REST AO 107/54 (75) SA 09:58:11 AIR REST 12:13:52 AIR REST ECG 12:13:52 Signed By Jeovanny Bal MD On 03/03/2023 12:18:51 Signed By Jeovanny Bal MD On 03/03/2023 10:21:16 Jeovanny Bal MD
--- NOTE | 2023-03-03 10:27 | PCM.PN.HOSP ---
Subjective Subjective Doing well, no chest pain overnight. Plan for cath today Objective Data Objective Data Vital Signs: Vital Signs Temp Pulse Resp BP Pulse Ox O2 Del Method O2 Flow Rate 98.1 F 68 16 119/80 98 Room Air 2 03/03/23 07:36 03/03/23 07:39 03/03/23 07:36 03/03/23 07:39 03/03/23 07:36 03/03/23 07:51 03/01/23 06:00 Oxygen Flow Rate (L/min) 2 Oxygen Delivery Method Room Air Weight: 206 lb 9.17 oz Body Mass Index (BMI) 36.6 Intake & Output: Intake and Output for Last 24 Hours 03/02/23 03/03/23 03/04/23 03:59 03:59 03:59 Intake Total 1184.58 / 1184.58 1519.92 / 1519.92 85.62 / 85.62 Balance 1184.58 / 1184.58 1519.92 / 1519.92 85.62 / 85.62 Lab / Micro Data 03/02/23 16:03 03/02/23 05:24 Labs: Laboratory Results - last 24 hr 03/02/23 16:03: Hgb 11.4 L, Hct 34.8 L 03/03/23 05:33: APTT 60.0 H Physical Exam Narrative General: Alert, Oriented x3, Cooperative, No apparent distress HEENT: Atraumatic, PERRLA, EOMI, Normocephalic Oral: Moist Mucosa Neck: Supple, No JVD Lungs: Diminished, Normal air movement, No rhonchi, No wheeze, No rales Cardiovascular: Regular rate, Regular Rhythm, Normal S1, Normal S2, No murmurs Abdomen: Soft, Non Tender, Non-Distended, No Hepato-splenomegaly Extremities: No edema, Capillary Refill Less than 3 Seconds Skin: No rashes, No breakdown Musculoskeletal: No Tenderness to Palpation of Joints or Extremities Neurological: Cranial nerves II-XII grossly intact, Motor Exam 5/5 strength throughout, Sensory exam intact to light touch and pain Psych/Mental Status: Normal Affect, Appropriate Assessment & Plan Assessment/Plan (1) Non-ST elevated myocardial infarction: PLAN: Plan 1. Non-STEMI/HTN/HLD/chronic diastolic CHF ? Troponin is elevated to over 17,000 ? Appreciate cardiology's assistance, plan for heart cath today ? Continue with the heparin drip ? Continue with aspirin was loaded with Plavix in the ER ? Can resume her home blood pressure medications, will monitor and make adjustments ? As she had an echo in August 2022 with an EF of 65% and moderately severe mitral valve insufficiency ? Her stress test in September was slightly abnormal with mild anterior ischemia 2. Hypothyroidism ? Stable ? Continue with Synthroid 3. Anxiety/depression ? Stable ? Continue with Paxil DVT: Heparin drip Charges/Coding Visit Charges Inpatient E&M: 71901 Subs Hosp L2
--- NOTE | 2023-03-03 11:14 | PCM.PN.CARD ---
Subjective Subjective Patient seen and evaluated. Underwent cardiac catheterization today. Objective Data Vital Signs: Vital Signs Temp Pulse Resp BP Pulse Ox O2 Del Method O2 Flow Rate 98.1 F 68 16 119/80 98 Room Air 2 03/03/23 07:36 03/03/23 07:39 03/03/23 07:36 03/03/23 07:39 03/03/23 07:36 03/03/23 07:51 03/01/23 06:00 Oxygen Flow Rate (L/min) 2 Oxygen Delivery Method Room Air Weight: 206 lb 9.17 oz Body Mass Index (BMI) 36.6 Intake & Output: Intake and Output for Last 24 Hours 03/01/23 03/02/23 03/03/23 23:59 23:59 23:59 Intake Total 358.91 / 358.91 2519.92 / 2519.92 85.62 / 85.62 Balance 358.91 / 358.91 2519.92 / 2519.92 85.62 / 85.62 Lab / Micro Data 03/02/23 16:03 03/02/23 05:24 Labs: Laboratory Results - last 24 hr 03/02/23 16:03: Hgb 11.4 L, Hct 34.8 L 03/03/23 05:33: APTT 60.0 H Cardiology Labs/Tests 03/02/23 16:03: Hgb 11.4 L, Hct 34.8 L 03/03/23 05:33: APTT 60.0 H Rhythm: EKG: ECHO: Stress Test: Cardiac Cath: PCI: CT Surgery: Holter monitor: EPS: PPM: CXR: Chest CT Scan: Physical Exam Const alert, oriented x3 and no apparent distress General Appearance: cooperative HEENT hearing grossly normal bilaterally Head and Scalp: atraumatic Eyes EOMs intact bilaterally Neck General: normal visual inspection Chest inspection of chest normal and palpation of chest normal Resp normal respiratory effort Auscultation: clear to auscultation bilaterally Cardio regular rate, regular rhythm, S1 normal heart sound and S2 normal heart sound Jugular Venous Distention: JVD Heart Sounds: murmur systolic III/ harsh apex and axilla GI normal to inspection, nondistended, normoactive bowel sounds Extremity normal capillary refill and no pedal edema Peripheral Pulses: Yes pulses 2+ throughout and femoral pulses present Skin no rashes or lesions noted Neuro oriented x3 and CN's II-XII intact bilaterally Psych Appearance: grossly normal and appropriate Assessment & Plan Assessment/Plan (1) Non-ST elevated myocardial infarction: PLAN: She presented with a non-ST elevation myocardial infarction underwent a cardiac catheterization which demonstrated high-grade proximal to mid left anterior descending artery lesion. She underwent PCI of the above successfully. The plan was to continue her on the current medical therapy. (2) Mitral regurgitation: PLAN: She does have at least moderate to moderately severe mitral regurgitation. We will continue to monitor this. She will be seen again in the office and then will consider whether she would be a candidate for the mitral valve clip. (3) HTN (hypertension), benign: PLAN: She will continue her current antihypertensive therapy.
[2023-03-03] MEDS: Furosemide 40 MG Tablet PO (11:59)
--- NOTE | 2023-03-03 12:21 | EKG12_ITS ---
Test Reason : POST PCI Blood Pressure : / mmHG Vent. Rate : 062 BPM Atrial Rate : 062 BPM P-R Int : 196 ms QRS Dur : 090 ms QT Int : 438 ms P-R-T Axes : 054 077 020 degrees QTc Int : 444 ms Normal sinus rhythm Nonspecific ST abnormality Abnormal ECG When compared with ECG of 03-MAR-2023 05:36, MANUAL COMPARISON REQUIRED, DATA IS UNCONFIRMED Confirmed by SYD BINGHAM, OSCAR ([id number]), editor managing director EMILY CAMPO ([id number]) on 03/05/2023 6:30:43 AM Referred By: Confirmed By:OSCAR VELARDE MD
--- NOTE | 2023-03-03 12:22 | CL.I_ITS ---
Patient Name: ANDREW MOMIN Study Date: 03/03/2023 Performing: Ziyad Cortez MD Ht: 63 inches 160.02 cm : 1935 Wt: 206.57 lbs 93.7 kg Age: 87 Gender: female BSA: 1.96 PROCEDURE(S) PERFORMED IC12-(74517/C9600)WILY W/WO PTCA, SINGLE CORONARY ARTERY CLINICAL PROFILE AND CO-MORBIDITIES Indications: Worsening Angina Heart Failure: None Stress/Imaging Stress/Image Study Performed: No CAD Presentations: Non-STEMI. Symptom onset Date/Time: 03/02/23 Time Not Available CONCLUSIONS Successful WILY to pLAD RECOMMENDATIONS DESCRIPTION OF PROCEDURE The patient arrived to the procedure lab. The risks and benefits of the procedure as well as a full description of our services here and current unavailability of surgical backup were fully explained to the patient and/or their significant other prior to the catheterization. The Timeout was completed, verifying the correct patient and procedure. The patient's procedural site was prepped and draped in the usual fashion. Local anesthetic was given subcutaneously to right radial region with Lidocaine 2% Using a modified Seldinger technique,arterial access was obtained via the right radial artery, a 6Fr sheath was inserted. Left Coronary Artery selective angiography was performed in multiple views using a 5 Fr. 4.0 Strawberry catheter. Right Coronary Artery selective angiography was then performed in multiple views using a 5 Fr. 4.0 Strawberry catheter.The images were reviewed and options discussed. A decision was then made to proceed with an Intervention, IVUS or other adjunct procedure. XB3 Guide catheter was inserted and engaged into the LCA. BMW Guide wire was advanced to the LAD. 2.25x8 Emerge Balloon catheter was inserted. Balloon catheter was advanced across lesion in the LAD, proximal. PTCA balloon inflated at 10 atms for 18 secs. Angiogram performed post balloon dilatation. 2.5x12 [place] Drug Eluting stent was inserted. Drug Eluting stent was advanced across the lesion in the LAD, proximal. Angiogram performed post stent deployment. 2.75x8 [place] Emerge Balloon catheter was inserted. Balloon catheter was inserted post stent. Balloon catheter was advanced across lesion in the LAD, proximal. Angiogram performed post balloon dilatation. The arterial sheath was pulled and a TR Band was applied for hemostasis. 10cc of air INTERVENTION INFORMATION LESION SITE: LAD (Proximal) Lesion Complexity: High/C, chronic total occlusion: No, lesion at bifurcation: No, thrombus present: No, lesion length: 11 mm, culprit lesion: No, Previously treated lesion: No Pre Stenosis: 80 % Pre intervention DAGO flow: 3 PROCEDURE: Drug Eluting Stent with pre and post dilatation Post Stenosis: 0 % Post intervention DAGO flow: 3 Lesion Devices: Jackson .014 190cm BMW [place] Straight Cordis 6 Fr XB3.0 100cm Guide Catheter Liborio Sci EMERGE MR 2.25x08 BALLOON Medtronic 2.50 x 12 LUTHER FRONTIER WILY Liborio Sci NC EMERGE MR 2.75x08 BALLOON COMPLICATIONS No Complications PROCEDURE MEDICATIONS Fentanyl 50 mcg IV Versed 1 mg IV Oxygen: 2 L/min via nasal cannula Heparin given IA 03/03/2023 09:55:02 Heparin 5000 unit(s) IV 03/03/2023 10:30:17 Verapamil 2.5mg, Ntg 100mcgs, 3000 units of Heparin given IA 03/03/2023 09:55:02 SUMMARY OF HEMODYNAMIC DATA Time AIR REST ECG 09:36:39 AO 107/54 (75) SA 09:58:11 AIR REST 12:13:52 Signed By Ziyad Cortez MD On 03/03/2023 12:21:30 Ziyad Cortez MD
--- NOTE | 2023-03-03 14:00 | CRPHASE1_ITS ---
Patient Communication Patient Information PHII Cardiac Rehab Discussed with Patient:: Yes Guide to Cardiac Rehab Given to Patient:: Yes Cardiac Rehab Facility Choice List Given to Patient:: Yes Communication to Cardiac Rehab Choice Program [facility] CR PHII:: Communication Given to CR Entertainer Or Variety Artist:: Connie Cortez Phase II Cardiac Rehab:: Yes Sessions:: 36 sessions - 3 days/wk, 12 weeks Cardiac Rehabilitation Info Program Information Cardiac Rehabilitation Program Information: Cardiac Rehab The cardiac rehab team at [facility] consists of highly skilled exercise physiologists, nurses, respiratory therapists and physicians working together with you. Our purpose is to help you have a full recovery and achieve the goals you set for yourself. Over the years many of our patients have returned to activities they assumed they would never do again! We can help restore your confidence and motivation to make lifestyle changes that can have a significant impact on your health and quality of life! We can help answer questions and concerns you may have about exercise, lifestyle, medications, diet, stress and anxiety which are common following a hospitalization. WE monitor ECG and vital signs during exercise and discuss your progress with you and report to your physician(s). Cardiac Rehab is proven to help reduce readmissions, improve functional capacity and lower recurrence of problems with your heart. Our Cardiac Rehab program is Certified by the [place] [employer]-Vascular and Pulmonary [employer] (AACVPR) and Accredited by the [place] [employer] through our [facility]. You can contact us at . We invite you to call us with your questions or to get started in our program. If you have other questions or concerns be sure to ask your physician/provider during your follow-up visit. WE look forward to seeing you!
--- NOTE | 2023-03-03 14:00 | CRPH1.INSTRU ---
General Education Discussed with Patient CAD and cardiac anatomy and function:: Patient communicates acknowledgment Explanation of diagnoses and procedures:: Patient communicates acknowledgment Sign/Symptoms of ME:: Patient communicates acknowledgment Antiplatelet therapy: Patient communicates acknowledgment Proper use of NTG-SL: Patient communicates acknowledgment Emergency procedures and activation of EMS: Patient communicates acknowledgment Compliance of all prescribed medications: Patient communicates acknowledgment Smoking Risk Factors Patient Nicotine/Smoking Risk Factors Are:: Non-smoker Dyslipidemia Risk Factors Patient Dyslipidemia Risk Factors Are:: Total Cholesterol, Triglycerides, HDL and LDL Recommendations Recommendations Include:: Lipid profile provided, Reviewed NCEP/ATP guidelines and Therapeutic Lifestyle Change dietary guidelines Response Code Dyslipidemia Response Code:: Patient communicates acknowledgment Overweight/Obesity Risk Factors Patient Overweight/Obesity Risk Factors Are:: Obesity - > or = 30 Recommendations Recommendations Include:: Weight loss of 5-10%, Reduced calorie diet and Exercise 5-7 times/week Response Code Overweight/Obesity:: Patient communicates acknowledgment Hypertension Recommendations Recommendations Include:: Maintain BP <130/85, DASH dietary guidelines, Decrease/maintain normal body weight and Moderation of ETOH Response Code Hypertension:: Patient communicates acknowledgment Diabetes Risk Factors Patient Diabetes Risk Factors Are:: No documented hx of diabetes Metabolic Syndrome Risk Factors Patient Metabolic Syndrome Risk Factors Are [3 of 5]:: Fasting blood sugar > 100 mg/dL, Waist circumference > 35 [female] or 40 [male], High triglyceride >150, Hypertension and Low HDL <40 [male] or < 50 [female] Recommendations Recommendations Include:: Reinforce compliance to risk factor modifications and Encouraged follow-up with Primary Care Physician Response Code Metabolic Syndrome Response Code:: Patient communicates acknowledgment Sedentary Risk Factors Patient Sedentary Risk Factors Are:: Lack of regular exercise Recommendations Recommendations Include:: Aerobic exercise 5-7 times/week for 20-30 minutes continuously, Benefits of regular exercise, Discussed home walking program and Monitored Outpatient Cardiac Rehab Response Code Sedentary Response Code:: Patient communicates acknowledgment Stress Risk Factors Patient Stress Risk Factors Are:: Patient denies stress as a risk factor Recommendations Recommendations Include:: Identification of stressors, and assessment of coping skills and Stress management techniques Response Code Stress Response Code:: Patient communicates acknowledgment
[2023-03-03] MEDS: 0.9% Normal Saline (1000mL) 1,000 ML 100 ML IV (17:07)
[2023-03-03] MEDS: Atorvastatin Calcium 40 MG Tablet PO (20:46)
[2023-03-04] VITALS (7 sets, daily range): BP systolic 112–128; BP diastolic 54–94; PULSE 69–83; RESP 13–17; TEMP 36.6–36.9; O2SAT 96–99
[2023-03-04] MEDS: Nitroglycerin Oint 1 INCH PACKET TD (05:15)
[2023-03-04] MEDS: Levothyroxine 88 MCG Tablet PO (05:15)
[2023-03-04 07:11] LABS: Absolute Lymphocyte Count 1.94 X10^3/uL (0.83-4.51); Basophil# 0.05 X10^3/uL; Basophil% 0.7 % (0-1); Eosinophil# 0.25 X10^3/uL; Eosinophils% 3.7 % (0-5); Hematocrit 33.9 % (37-47); Hemoglobin 10.6 g/dL (12.0-15.0); Lymphocyte # 1.94 X10^3/ul (0.83-4.51); Lymphocyte % 28.5 % (19-41); Mean Corp Hgb Conc 31.3 g/dL (32-36); Mean Corpuscular Hgb 29.7 pg (27.0-32.0); Mean Platelet Vol. 11.4 fl (6.2-12.0); Monocyte% 8.8 % (0-10); NRBC Flagged by Analyzer 0 % (0-5); Neutrophil # 3.95 X10^3/uL (2.7-7.7); Platelet Count 181 K/mm3 (150-450); RBC Distribution Width SD 44.9 fl (35.1-43.9); Red Blood Count 3.57 M/mm3 (4.2-5.4); White Blood Count 6.8 K/mm3 (4.4-11.0)
[2023-03-04 07:39] LABS: ALB/GLOB Ratio 0.7 RATIO (0.9-2.4); AST(SGOT) 27 U/L (15-37); Alanine Aminotransfer ALT/SGPT 20 U/L (13-56); Albumin, Serum 2.6 g/dL (3.2-5.0); Alkaline Phosphatase 74 U/L (45-117); Anion Gap 2 (5-15); BUN 33 mg/dL (7-18); BUN/Creat Ratio 25.4 RATIO (10-20); Calcium,Total 8.1 mg/dL (8.5-10.1); Chloride 113 mmol/L (98-107); EST Glomerular Filtration Rate 41 mL/min (>60); Est Glom Filt Rate - Afr Amer 50 mL/min (>60); Estimated Creatinine Clearance 25.22 ml/min; Globulin 3.5 g/dL (2.2-4.2); Glucose 112 mg/dL (74-106); Potassium 4.3 mmol/L (3.5-5.1); Protein, Total 6.1 g/dL (6.4-8.2); Sodium Level 139 mmol/L (136-145)
--- NOTE | 2023-03-04 08:54 | PN.CARD_ITS ---
Subjective Subjective Patient seen and evaluated. Appears to be doing well. Stable at this time. Objective Data Vital Signs: Vital Signs Temp Pulse Resp BP Pulse Ox O2 Del Method O2 Flow Rate 98.4 F 72 15 122/66 H 96 Room Air 2 03/04/23 05:06 03/04/23 05:06 03/04/23 05:06 03/04/23 05:15 03/04/23 05:06 03/04/23 08:27 03/01/23 06:00 Oxygen Flow Rate (L/min) 2 Oxygen Delivery Method Room Air Weight: 206 lb 9.17 oz Body Mass Index (BMI) 36.6 Intake & Output: Intake and Output for Last 24 Hours 03/02/23 03/03/23 03/04/23 23:59 23:59 23:59 Intake Total 2519.92 / 2519.92 595.62 / 715.62 1170 / 1170 Output Total Balance 2519.92 / 2519.92 594.62 / 714.62 1170 / 1170 Lab / Micro Data 03/04/23 06:58 03/04/23 06:58 Labs: Laboratory Results - last 24 hr 03/04/23 06:58: WBC 6.8, RBC 3.57 L, Hgb 10.6 L, Hct 33.9 L, MCV 95.0, MCH 29.7, MCHC 31.3 L, RDW Std Deviation 44.9 H, RDW Coeff of Danelle 13.0, Plt Count 181, MPV 11.4, Immature Gran % (Auto) 0.300, Neut % (Auto) 58.0, Lymph % (Auto) 28.5, [place] % (Auto) 8.8, Eos % (Auto) 3.7, Baso % (Auto) 0.7, Absolute Neuts (auto) 4.0, Absolute Lymphs (auto) 1.94, Nucleated RBC % 0, Sodium 139, Potassium 4.3, Chloride 113 H, Carbon Dioxide 24.0, Anion Gap 2 L, BUN 33 H, Creatinine 1.30 H, Estim Creat Clear Calc 25.22, Est GFR (MDRD) Af Amer 50 L, Est GFR (MDRD) Non-Af 41 L, BUN/Creatinine Ratio 25.4 H, Glucose 112 H, Calcium 8.1 L, Total Bilirubin 0.20, AST 27, ALT 20, Alkaline Phosphatase 74, Total Protein 6.1 L, Albumin 2.6 L, Globulin 3.5, Albumin/Globulin Ratio 0.7 L Cardiology Labs/Tests 03/04/23 06:58: WBC 6.8, RBC 3.57 L, Hgb 10.6 L, Hct 33.9 L, MCV 95.0, MCH 29.7, MCHC 31.3 L, Plt Count 181, MPV 11.4, Immature Gran % (Auto) 0.300, Neut % (Auto) 58.0, Lymph % (Auto) 28.5, [place] % (Auto) 8.8, Eos % (Auto) 3.7, Baso % (Auto) 0.7, Absolute Neuts (auto) 4.0, Nucleated RBC % 0, Sodium 139, Potassium 4.3, Chloride 113 H, Carbon Dioxide 24.0, Anion Gap 2 L, BUN 33 H, Creatinine 1.30 H, Est GFR (MDRD) Af Amer 50 L, Est GFR (MDRD) Non-Af 41 L, BUN/Creatinine Ratio 25.4 H, Glucose 112 H, Calcium 8.1 L, Total Bilirubin 0.20 Rhythm: EKG: ECHO: Stress Test: Cardiac Cath: PCI: CT Surgery: Holter monitor: EPS: PPM: CXR: Chest CT Scan: Radiography Diagnostic Testing: Radiology Impression Echocardiogram 03/01/23 13:09 Interpretation Summary Normal LV size. Left ventricular systolic function is lower limits of normal. The left ventricular ejection fraction is 50 %. There are regional wall motion abnormalities as specified. Pulmonary artery systolic pressure is 45 mmHg. Contrast injection was performed. Ordering Physician: Georges Mcdonald Referring Physician: Neville Serrano Chi Performed By: Guanakito Suarez RCS Physical Exam Const alert, oriented x3 and no apparent distress General Appearance: cooperative HEENT hearing grossly normal bilaterally Head and Scalp: atraumatic Eyes EOMs intact bilaterally Neck General: normal visual inspection Chest inspection of chest normal and palpation of chest normal Resp normal respiratory effort Auscultation: clear to auscultation bilaterally Cardio regular rate, regular rhythm, S1 normal heart sound and S2 normal heart sound Jugular Venous Distention: JVD Heart Sounds: murmur systolic III/ harsh apex and axilla GI normal to inspection, nondistended, normoactive bowel sounds Extremity normal capillary refill and no pedal edema Peripheral Pulses: Yes pulses 2+ throughout and femoral pulses present Skin no rashes or lesions noted Neuro oriented x3 and CN's II-XII intact bilaterally Psych Appearance: grossly normal and appropriate Assessment & Plan Assessment/Plan (1) Non-ST elevated myocardial infarction: PLAN: She presented with a non-ST elevation myocardial infarction underwent a cardiac catheterization which demonstrated high-grade proximal to mid left anterior descending artery lesion. She underwent PCI of the above successfully. The plan was to continue her on the current medical therapy. She will be seen as an outpatient and can be discharged today. (2) Mitral regurgitation: PLAN: She does have at moderate mitral regurgitation. We will continue to monitor this. She will be seen again in the office and then will consider whether she would be a candidate for the mitral valve clip. (3) HTN (hypertension), benign: PLAN: She will continue her current antihypertensive therapy.
[2023-03-04] MEDS: Clopidogrel Bisulfate 75 MG Tablet PO (09:51)
[2023-03-04] MEDS: Metoprolol Tartrate 25 MG Tablet PO (09:52)
[2023-03-04] MEDS: Paroxetine 20 MG Tablet 40 MG PO (09:52)
[2023-03-04] MEDS: Aspirin E.C. 81 MG Tablet PO (09:52)
[2023-03-04] MEDS: Furosemide 40 MG Tablet PO (09:52)
[2023-03-04] MEDS: Lisinopril 10 MG Tablet 5 MG PO (09:53)
--- NOTE | 2023-03-04 10:00 | EKG12_ITS ---
Test Reason : Blood Pressure : / mmHG Vent. Rate : 067 BPM Atrial Rate : 067 BPM P-R Int : 174 ms QRS Dur : 082 ms QT Int : 442 ms P-R-T Axes : 022 065 072 degrees QTc Int : 467 ms Sinus rhythm with Premature atrial complexes Nonspecific ST abnormality Abnormal ECG When compared with ECG of 28-FEB-2023 10:16, MANUAL COMPARISON REQUIRED, DATA IS UNCONFIRMED Confirmed by RUSTY BINGHAM, ZAIN ([id number]), assignment desk editor YNES BERRIOS ([id number]) on 03/17/2023 11:14:21 AM Referred By: KYA Confirmed By:JEFRY OJEDA MD
--- NOTE | 2023-03-04 11:28 | DS.PCM_ITS ---
Providers Date of Admission: 02/28/23 Date of Discharge: 03/04/23 Primary Care Physician: Dr. Neville Serrano MD Consultations 02/28/23 15:19 Consult: Cardiology Routine Consulting Provider: Georges Mcdonald Reason for Consult: NSTEMI EMERGENT Consult: No MD Notified: Yes Date Notified: 02/28/23 Time Notified: 12:50 Method of Notification: ED Physician Initiated Reason For Visit: NSTEMI Diagnosis Discharge Diagnosis (1) Non-ST elevated myocardial infarction: Status: Acute Code(s): I21.4 - Non-ST elevation (NSTEMI) myocardial infarction (2) Mitral regurgitation: Status: Acute Code(s): I34.0 - Nonrheumatic mitral (valve) insufficiency (3) HTN (hypertension), benign: Status: Acute Code(s): I10 - Essential (primary) hypertension Medications at Discharge Home Medications paroxetine HCl 40 mg tablet 40 mg PO DAILY . 08/11/22 aspirin 81 mg tablet,delayed release 81 mg PO BREAKFAST #30 tabs 08/13/22 levothyroxine 88 mcg tablet 88 mcg PO DAILY 08/22/22 atorvastatin 40 mg tablet 40 mg PO QHS #90 tabs 10/01/22 furosemide 40 mg tablet 40 mg PO DAILY #90 tabs 10/01/22 lisinopril 10 mg tablet 10 mg PO DAILY #90 tabs 10/01/22 spironolactone 25 mg tablet 12.5 mg (1/2 x 25 mg) PO DAILY #45 tabs 10/01/22 clopidogrel 75 mg tablet 75 mg PO DAILY #90 tabs 03/04/23 metoprolol tartrate 25 mg tablet 25 mg PO BID 180 days #360 tabs 03/04/23 Hospital Course Summary of Care Provided Minutes Spent on Discharge: 35 Hospital Course: Patient is an 87-year-old lady who presented with chest pain diagnosed with acute non-STEMI 1. Acute non-STEMI ? Patient underwent left heart catheterization which demonstrated high-grade proximal to mid LAD lesion. She underwent PCI subsequently discharged home on guideline directed medical therapy 2. Mitral regurgitation: Plan is for patient to follow-up as outpatient with cardiology for consideration for possible mitral valve clip 3. Hypothyroidism - Patient is on levothyroxine home dose continued 4. Hypertension - Blood pressure controlled, home medications continued with dose adjustment as needed 5. Dyslipidemia -Patient is on statin therapy, continued at home dose 6. Depression ? Patient on Paxil did continue Physical Exam Narrative GENERAL: cooperative HEENT: Atraumatic; normocephalic EYES; Anicteric, Normal Conjunctiva NECK; supple, normal thyroid, RESPIRATORY: Diminished to auscultation CARDIOVASCULAR: Regular S1 S2, GI: soft, normoactive bowel sounds, : No Renal angle tenderness; EXTREMITIES: No edema, no clubbing, MUSCULOSKELETAL: no muscle wasting NEURO: Awake; no lateralizing signs. SKIN: No Rash PSYCH; Flat affect Weight / BMI Weight Weight: 93.7 kg Body Mass Index (BMI) 36.6 ABG / Lab / Microbiology Data 03/04/23 06:58 03/04/23 06:58 Laboratory: Laboratory Results - last 24 hr 03/04/23 06:58: WBC 6.8, RBC 3.57 L, Hgb 10.6 L, Hct 33.9 L, MCV 95.0, MCH 29.7, MCHC 31.3 L, RDW Std Deviation 44.9 H, RDW Coeff of Danelle 13.0, Plt Count 181, MPV 11.4, Immature Gran % (Auto) 0.300, Neut % (Auto) 58.0, Lymph % (Auto) 28.5, [place]rus % (Auto) 8.8, Eos % (Auto) 3.7, Baso % (Auto) 0.7, Absolute Neuts (auto) 4. 0, Absolute Lymphs (auto) 1.94, Nucleated RBC % 0, Sodium 139, Potassium 4.3, Chloride 113 H, Carbon Dioxide 24.0, Anion Gap 2 L, BUN 33 H, Creatinine 1.30 H, Estim Creat Clear Calc 25.22, Est GFR (MDRD) Af Amer 50 L, Est GFR (MDRD) Non-Af 41 L, BUN/Creatinine Ratio 25.4 H, Glucose 112 H, Calcium 8.1 L, Total Bilirubin 0.20, AST 27, ALT 20, Alkaline Phosphatase 74, Total Protein 6.1 L, Albumin 2.6 L, Globulin 3.5, Albumin/Globulin Ratio 0.7 L Radiography Diagnostic Testing: Radiology Impression Echocardiogram 03/01/23 13:09 Interpretation Summary Normal LV size. Left ventricular systolic function is lower limits of normal. The left ventricular ejection fraction is 50 %. There are regional wall motion abnormalities as specified. Pulmonary artery systolic pressure is 45 mmHg. Contrast injection was performed. Ordering Physician: Georges Mcdonald Referring Physician: Neville Serrano Chi Performed By: Guanakito Suarez RCS D/C Instructions Discharge Diet: Low fat / Low cholesterol Discharge Activity: Return to Normal Activity Call your doctor if you observe: Fever of 101 or Higher, Shortness of breath, Fainting spells and Chest pain Meaningful Use Info Meaningful Use Diagnoses (Choose all that apply): AMI AMI/Post PCI/Angioplasty Aspirin given w/in 24hrs of arrival?: Yes ASA at discharge?: Yes Antiplatelet Therapy at Discharge:: Yes Statins at discharge?: Yes Rodolfo/ARB at discharge?: Yes Beta Jonas at discharge?: Yes Done w/ Acute DC measure.: Yes Documented LVEF (%): 50 Discharge Plan Admission Admit Date/Time: 02/28/23 12:46 Attending Provider: John Pickett Primary Care Provider: Neville Serrano Chi Consulting Providers: Georges Mcdonald; Antwon Peguero Discharge Orders/Prescriptions Prescriptions: New clopidogrel 75 mg Tablet 75 mg PO DAILY Qty: 90 0RF metoprolol tartrate 25 mg Tablet 25 mg PO BID 180 Days Qty: 360 0RF Continued levothyroxine 88 mcg tablet 88 mcg PO DAILY paroxetine HCl 40 mg tablet 40 mg PO DAILY aspirin 81 mg Tablet,Delayed Release (Dr/Ec) 81 mg PO BREAKFAST Qty: 30 2RF atorvastatin 40 mg tablet 40 mg PO QHS Qty: 90 3RF furosemide 40 mg tablet 40 mg PO DAILY Qty: 90 3RF Rx Instructions: Take an additional 40 mg dose at 5 PM for increased leg swelling or weight gain 5 pounds in 1 week. spironolactone 25 mg tablet 12.5 mg PO DAILY Qty: 45 3RF lisinopril 10 mg tablet 10 mg PO DAILY Qty: 90 3RF Discontinued atenolol [Tenormin] 50 mg tablet 50 mg PO DAILY Qty: 90 3RF Referrals / Follow Up: Jeovanny Bal MD [Med Staff - Active Staff] - Within 1 Month Neville Serrano Chi, MD [Primary Care Provider] - Within 1 Week Disposition Disposition (needs filled in before D/C Order can be placed): Home, Self Care Charges/Coding Visit Charges Inpatient E&M: 30804 Disch Hosp >30min
--- NOTE | 2023-03-04 12:54 | CASEMGMT ---
Patient has order for discharge. RN CM in to discuss needs at discharge. Patient denies needs at discharge. Patient had no further questions or concerns at this time.
== END 2023-03-04 14:33 | disposition home or self-care (01) | DRG 322 ==
LOC: ED 13:09 → PCU 13:11
PROVIDERS: Internal Medicine Cardiovascular Disease; Admitting Provider Family Medicine; Emergency Provider Emergency Medicine; PCP Family Medicine Geriatric Medicine; Visit Provider Internal Medicine
DX: I21.4 Non-ST elevation (NSTEMI) myocardial infarction (principal); I13.0 Hypertensive heart and chronic kidney disease with heart failure and stage 1 through stage 4 chronic kidney disease, or unspecified chronic kidney disease; I50.32 Chronic diastolic (congestive) heart failure; N18.30 Chronic kidney disease, stage 3 unspecified; F32.A Depression, unspecified; E03.9 Hypothyroidism, unspecified; I08.0 Rheumatic disorders of both mitral and aortic valves; E78.00 Pure hypercholesterolemia, unspecified; F41.9 Anxiety disorder, unspecified; Z79.82 Long term (current) use of aspirin; Z79.899 Other long term (current) drug therapy; Z82.49 Family history of ischemic heart disease and other diseases of the circulatory system
CPT/HCPCS: 36415; 71045; 80048; 80053; 84484; 85014; 85018; 85025; 85610; 85730; 92928; 93005; 93306; 93454; 99152; 99153; 99285; J7030; J7040; Q9957; Q9967; A4216; C1725; C1769; C1874; C1887; C1894; C8929; C9600

== ENCOUNTER 2023-03-07 04:29 | Observation (INO) | payer MEDICARE, OTHER, SELFPAY ==
[2023-03-07] VITALS (13 sets, daily range): BP systolic 114–138; BP diastolic 56–69; PULSE 69–93; RESP 16–20; TEMP 36.4–36.8; O2SAT 86–97; BMI 39.2; BMI 37.5; BMI 37.1
--- NOTE | 2023-03-07 04:44 | EKG12_ITS ---
Test Reason : CP Blood Pressure : / mmHG Vent. Rate : 089 BPM Atrial Rate : 089 BPM P-R Int : 182 ms QRS Dur : 096 ms QT Int : 394 ms P-R-T Axes : 042 087 019 degrees QTc Int : 479 ms Normal sinus rhythm Nonspecific ST abnormality Abnormal ECG Confirmed by RUSTY BINGHAM, ZAIN ([id number]), editorial assistant EMILY CAMPO ([id number]) on 03/17/2023 7:42:19 AM Referred By: Confirmed By:JEFRY OJEDA MD
--- NOTE | 2023-03-07 04:45 | EDS_ITS ---
HPI History of Present Illness Chief Complaint: Chest Pain Informant: patient and EMS Narrative Narrative: Patient brought by EMS for nonpleuritic chest heaviness that she has felt mostly in the left side but as of lately has been throughout her entire chest, subs ternal. Heaviness. Associated with dyspnea and sweating. No palpitations, syncope, nausea, vomiting, focal neurologic symptoms, or headache. No back pain, arm pain, jaw pain, neck pain. She is a very poor historian, she is very frustrated with detailed clinical questions about her symptoms asked by myself and by nursing staff here. She states that 5 days ago, she had a stent here in the ER because she had a heart attack and she cannot tell me any details about the pain she was having then, or she does not want to. She states this past day, as she presents 4:30 AM, she was having some discomfort with light exertion and then she rested and she got better. Then later she went to bed and felt it again and it did not go away, progressing all night. [facility] Medical History (Updated 03/07/23 @ 06:[address] Tomer Irvin MD) Anxiety and depression Arteriosclerotic coronary artery disease CHF (congestive heart failure) CKD (chronic kidney disease), stage III HLD (hyperlipidemia) Hypertension Hypothyroidism Myocardial infarct Non-smoker Obesity Home Medications paroxetine HCl 40 mg tablet 40 mg PO DAILY mental health 08/11/22 [History Last Taken 02/27/23] aspirin 81 mg tablet,delayed release 81 mg PO BREAKFAST heart health #30 tabs 08/13/22 [Rx Last Taken 02/28/23] levothyroxine 88 mcg tablet 88 mcg PO DAILY thyroid 08/22/22 [History Last Taken 02/27/23] atorvastatin 40 mg tablet 40 mg PO QHS cholesterol #90 tabs 10/01/22 [Rx Last Taken 02/27/23] furosemide 40 mg tablet 40 mg PO DAILY diuretic #90 tabs 10/01/22 [Rx Last Taken 02/27/23] lisinopril 10 mg tablet 10 mg PO DAILY blood pressure #90 tabs 10/01/22 [Rx Last Taken 02/28/23] spironolactone 25 mg tablet 12.5 mg (1/2 x 25 mg) PO DAILY diuretic #45 tabs 10/01/22 [Rx Last Taken 02/27/23] clopidogrel 75 mg tablet 75 mg PO DAILY #90 tabs 03/04/23 [Rx Last Taken Unknown] metoprolol tartrate 25 mg tablet 25 mg PO BID 180 days #360 tabs 03/04/23 [Rx Last Taken Unknown] Allergy/AdvReac Type Severity Reaction Status Date / Time No Known Allergies Allergy Verified 03/07/23 04:36 Family History Mother Heart disease Hypertension CHF (congestive heart failure) Father Heart disease Hypertension CHF (congestive heart failure) CAD (coronary artery disease) Myocardial infarction Surgical History (Updated 03/07/23 @ 06:[address] Tomer Irvin MD) History of carpal tunnel release History of tonsillectomy and adenoidectomy Stented coronary artery (03/03/23) Social History household members: none Smoking Status: Never smoker alcohol intake: never substance use type: does not use ROS ROS ED Constitutional Constitutional ED: Reports sweats; Denies chills or fever(s) Eyes Eyes: Denies change in vision or diplopia ENT ENT ED: Denies rhinorrhea or sore throat Cardiovascular Cardiovascular: Reports as per HPI and chest pain; Denies palpitations or radiating jaw, neck or arm pain Respiratory/Chest Respiratory/Chest: Reports dyspnea; Denies cough Gastrointestinal Gastrointestinal: Denies abdominal pain, diarrhea, nausea or vomiting Genitourinary Genitourinary ED: Denies dysuria or hematuria Musculoskeletal Musculoskeletal: Denies back pain or neck pain Integumentary Denies abscess or rash Neurologic Neurologic: Denies headache(s), paresthesias or weakness Psychiatric Psychiatric: Denies anxiety or suicidal thoughts EXAM Physical Exam Const Vital Signs: 03/07/23 04:30 03/07/23 04:34 03/07/23 04:58 Temperature 98.0 F Temperature Source Temporal Pulse Rate 87 Respiratory Rate 16 Blood Pressure 136/66 H Blood Pressure Mean 89 Pulse Ox 86 89 Oxygen Delivery Method Nasal Cannula Nasal Cannula Oxygen Flow Rate (L/min) 3 3 03/07/23 06:10 Temperature 97.9 F Temperature Source Pulse Rate 76 Respiratory Rate 20 H Blood Pressure 119/58 L Blood Pressure Mean 78 Pulse Ox 96 Oxygen Delivery Method Oxygen Flow Rate (L/min) Positive well nourished and well developed General Appearance ED: well developed and NAD HEENT Reports moist mucous membranes normocephalic and atraumatic Eyes PERRL and EOMs intact bilaterally Neck full ROM and supple Resp normal respiratory effort and clear to auscultation bilaterally Cardio regular rate, regular rhythm and no murmurs GI non-tender and non-distended Auscultation: normoactive bowel sounds Palpation: soft Back/Spine no CVA tenderness General Back: other FROM Extremity normal to inspection General Extremety ED: Yes edema; Negative for pulses abnormal or tenderness General Extremity: edema bilateral lower extremity Details: mild; Negative for pulses abnormal Neuro oriented x3, CN's II-XII intact bilaterally and no sensory deficits noted Sensorium / Orientation: awake and alert Motor Exam: strength 5/5 throughout Psych Psych Narrative: frustrated w/ clinical questioning, borderline angry. Skin no rashes or lesions noted and no wounds Heart Score History: Highly Suspicious ECG: Significant ST-Depression Age: >/= 65 years Risk Factors: >/= 3 Risk Factors or History of CAD Troponin: >/=3 x Normal Limit Score: 10 MDM MDM MDM Narrative Medical decision making narrative: Prior to arrival here in the emergency department EMS gave the patient aspirin 324 mg and nitroglycerin. The patient states it did not help her pain at all. Therefore while working her up, we gave her IV fluids, morphine, Zofran. On reevaluation she is feeling much better. Her troponin is 932, she will need to be trended since her troponins were up to 21,000 but this was only 5 days ago. Discussed with Dr. Cortez, he recommends holding off on any therapeutic heparin/Lovenox, continuing the patient's clopidogrel, and cycling enzymes and will be happy to consult in the hospital. She has a high heart score because of her recent stent. History & Record Review Additional record(s) reviewed:: Prior inpatient record (WILY to proximal LAD on 03/03) Lab Data Attestation: I reviewed the patient's lab results. Labs: Laboratory Results - last 24 hr 03/07/23 05:00 WBC 10.8 RBC 3.59 L Hgb 10.7 L Hct 33.0 L MCV 91.9 MCH 29.8 MCHC 32.4 RDW Std Deviation 41.7 RDW Coeff of Danelle 12.5 Plt Count 208 MPV 11.5 Immature Gran % (Auto) 0.500 Neut % (Auto) 76.3 H Lymph % (Auto) 14.4 L [place] % (Auto) 6.2 Eos % (Auto) 2.1 Baso % (Auto) 0.5 Absolute Neuts (auto) 8.3 H Absolute Lymphs (auto) 1.56 Nucleated RBC % 0 APTT 23.0 L Sodium 137 Potassium 4.3 Chloride 111 H Carbon Dioxide 20.0 L Anion Gap 6 BUN 33 H Creatinine 1.78 H Estim Creat Clear Calc 18.42 Est GFR (MDRD) Af Amer 35 L Est GFR (MDRD) Non-Af 29 L BUN/Creatinine Ratio 18.5 Glucose 108 H Calcium 8.4 L Troponin I High Sens 932 H* Radiography Chest X-Ray - ED: 1 View, Read by ED Physician, No Acute Disease and No Infiltrates Diagnostic Testing: Clinical Impression(s) from Imaging Studies Chest X-Ray 03/07/23 05:13 IMPRESSION: Cardiomegaly and interstitial edema. Electronically Signed: Luis A Thibodeaux DO at 5:30 EDT , Rhythm Strip Rhythm Strip: Sinus Rhythm Ectopy: None EKG Initial EKG: Attestation: I personally reviewed and interpreted this EKG as follows: Interpretation: Sinus Rhythm, No Acute Injury Pattern and S-T Depression (Inferior with borderline septal involvement, no definite reciprocal changes) Prior EKG tracings: available for review Prior: Unchanged Management Discussion w/another healthcare provider: Hospitalist and Texturing Machine Fixer (Cardiology) Discharge Plan Triage Chief Complaint: Chest Pain ED Provider: Tomer Irvin Dx/Rx/DC Orders Clinical Impression: Chest pain, Stented coronary artery, CKD (chronic kidney disease), stage III, Elevated troponin I level Prescriptions: No Action levothyroxine 88 mcg tablet 88 mcg PO DAILY paroxetine HCl 40 mg tablet 40 mg PO DAILY aspirin 81 mg Tablet,Delayed Release (Dr/Ec) 81 mg PO BREAKFAST Qty: 30 2RF clopidogrel 75 mg Tablet 75 mg PO DAILY Qty: 90 0RF metoprolol tartrate 25 mg Tablet 25 mg PO BID 180 Days Qty: 360 0RF atorvastatin 40 mg tablet 40 mg PO QHS Qty: 90 3RF furosemide 40 mg tablet 40 mg PO DAILY Qty: 90 3RF Rx Instructions: Take an additional 40 mg dose at 5 PM for increased leg swelling or weight gain 5 pounds in 1 week. spironolactone 25 mg tablet 12.5 mg PO DAILY Qty: 45 3RF lisinopril 10 mg tablet 10 mg PO DAILY Qty: 90 3RF Primary Care Provider: Neville Serrano Chi Referrals: Neville Serrano Chi, MD [Primary Care Provider] - Disposition Disposition: Acute Care Hospital [facility]
[2023-03-07 05:05] LABS: Absolute Lymphocyte Count 1.56 X10^3/uL (0.83-4.51); Absolute Neutrophil Count 8.3 X10^3/uL (2.0-7.7); Basophil# 0.05 X10^3/uL; Basophil% 0.5 % (0-1); Eosinophil# 0.23 X10^3/uL; Eosinophils% 2.1 % (0-5); Hemoglobin 10.7 g/dL (12.0-15.0); Lymphocyte # 1.56 X10^3/ul (0.83-4.51); Lymphocyte % 14.4 % (19-41); Mean Corp Hgb Conc 32.4 g/dL (32-36); Mean Corpuscular Hgb 29.8 pg (27.0-32.0); Mean Corpuscular Volume 91.9 fL (81-99); Mean Platelet Vol. 11.5 fl (6.2-12.0); Monocyte# 0.67 X10^3/uL; Monocyte% 6.2 % (0-10); NRBC Flagged by Analyzer 0 % (0-5); Neutrophil # 8.25 X10^3/uL (2.7-7.7); Neutrophil % 76.3 % (47-70); Platelet Count 208 K/mm3 (150-450); RBC Distribution Width CV 12.5 % (11.6-14.6); RBC Distribution Width SD 41.7 fl (35.1-43.9); Red Blood Count 3.59 M/mm3 (4.2-5.4); White Blood Count 10.8 K/mm3 (4.4-11.0)
[2023-03-07] MEDS: Ondansetron 4 MG/2 ML Vial IV (05:06)
[2023-03-07] MEDS: 0.9% Normal Saline (1000mL) 1,000 ML 150 ML IV (05:06)
[2023-03-07] MEDS: Morphine 4 MG/ML Syringe 2 MG IV (05:07)
--- NOTE | 2023-03-07 05:13 | RAD_ITS ---
INDICATION: chest pain EXAMINATION/TECHNIQUE: X-RAY - XR Chest 1 View COMPARISON: 02/28/2023. FINDINGS: LINES/DEVICES: None. LUNGS: Mild diffuse interstitial opacities. No evidence of a pleural effusion or a pneumothorax. No focal infiltrate is identified. Stable right upper lobe calcified granuloma. MEDIASTINUM AND CARDIOVASCULAR STRUCTURES: Stable mild cardiomegaly. Mediastinum is unremarkable. BONES AND SOFT TISSUES: No acute abnormality. RAD/Chest 1 View (Portable) IMPRESSION: Cardiomegaly and interstitial edema. Electronically Signed: Luis A Thibodeaux DO at 5:30 EDT ,
[2023-03-07 05:55] LABS: Anion Gap 6 (5-15); BUN 33 mg/dL (7-18); BUN/Creat Ratio 18.5 RATIO (10-20); Calcium,Total 8.4 mg/dL (8.5-10.1); Chloride 111 mmol/L (98-107); Creatinine, Serum 1.78 mg/dL (0.55-1.02); EST Glomerular Filtration Rate 29 mL/min (>60); Est Glom Filt Rate - Afr Amer 35 mL/min (>60); Estimated Creatinine Clearance 18.42 ml/min; Glucose 108 mg/dL (74-106); Potassium 4.3 mmol/L (3.5-5.1); Sodium Level 137 mmol/L (136-145); Troponin-I HS (w/2H Reflex) 932 pg/mL (3.0-54.0)
--- NOTE | 2023-03-07 06:21 | PCM.HP.STD ---
HPI - General General Date of Admission: 03/07/23 Date of Service: 03/07/23 Chief Complaint: Dyspnea, chest pain. HPI Narrative The patient is a 87 y/o F w/ PMHx: HFpEF, Anxiety and Depression, CKD stge III unclear subtype, HTN, HLD, Anxiety and Depression, Morbid obesity, Hypothyroidism, recent discharge 03/04/23 following admission for chest pain with NSTEMI with cardiac catheterization with high grade proximal to mid LAD lesion with PCI performed who now re-presents to the [facility] ED on 03/07/23 with nonpleuritic chest heaviness left-sided and also substernal with dyspnea and diaphoresis worse with any exertion and improved with rest initially however when she went to bed the evening prior to current presentation this discomfort recurred and that it did not go away and progressed through the evening prompting eventual ED evaluation. It is currently described in the chest tightness as a 5 out of 10 in severity, previously worse but improved with morphine. She notes initially 7-8 out of 10 in severity. She denies any marked orthopnea, increased weight gain, increased lower extremity swelling but does have chronic nonpitting edema to the lower extremities. Work-up in the ED included T97.9, heart rate 76, BP 119/58, respiratory rate 20, 96% on 2 L nasal cannula however initially desaturated down to 86% but improved with supplementation, CBC with WBC 10.8, hemoglobin 10.7, MCV 91.9, platelet 208 with left shift, PTT 23, BMP with chloride 111,, oxide 20, BUN/creatinine 33/1.78, glucose 108, calcium 8.4, troponin 932 without recent discharge troponin 21,716 of note, chest x-ray with cardiomegaly with interstitial edema, EKG with sinus rhythm with ST depressions inferiorly unchanged from previously. ED did alfredo case with cardiology who recommended admission and serial cardiac enzymes trended to be cautious. In the ED patient ministered normal saline, morphine, Zofran. [facility] Medical History (Updated 03/07/23 @ 06:[address] Marina Rogers MD) (HFpEF) heart failure with preserved ejection fraction Anxiety and depression Arteriosclerotic coronary artery disease CHF (congestive heart failure) CKD (chronic kidney disease), stage III HLD (hyperlipidemia) Hypertension Hypothyroidism Myocardial infarct Non-smoker Obesity Home Medications paroxetine HCl 40 mg tablet 40 mg PO DAILY mental health 08/11/22 [History Last Taken 02/27/23] aspirin 81 mg tablet,delayed release 81 mg PO BREAKFAST heart health #30 tabs 08/13/22 [Rx Last Taken 02/28/23] levothyroxine 88 mcg tablet 88 mcg PO DAILY thyroid 08/22/22 [History Last Taken 02/27/23] atorvastatin 40 mg tablet 40 mg PO QHS cholesterol #90 tabs 10/01/22 [Rx Last Taken 02/27/23] furosemide 40 mg tablet 40 mg PO DAILY diuretic #90 tabs 10/01/22 [Rx Last Taken 02/27/23] lisinopril 10 mg tablet 10 mg PO DAILY blood pressure #90 tabs 10/01/22 [Rx Last Taken 02/28/23] spironolactone 25 mg tablet 12.5 mg (1/2 x 25 mg) PO DAILY diuretic #45 tabs 10/01/22 [Rx Last Taken 02/27/23] clopidogrel 75 mg tablet 75 mg PO DAILY #90 tabs 03/04/23 [Rx Last Taken Unknown] metoprolol tartrate 25 mg tablet 25 mg PO BID 180 days #360 tabs 03/04/23 [Rx Last Taken Unknown] Allergy/AdvReac Type Severity Reaction Status Date / Time No Known Allergies Allergy Verified 03/07/23 04:36 Family History Mother Heart disease Hypertension CHF (congestive heart failure) Father Heart disease Hypertension CHF (congestive heart failure) CAD (coronary artery disease) Myocardial infarction Surgical History History of carpal tunnel release History of tonsillectomy and adenoidectomy Stented coronary artery (03/03/23) Social History household members: none Smoking Status: Never smoker alcohol intake: never substance use type: does not use ROS ROS Narrative Admission Review of Systems: CONSTITUTIONAL: No weight loss, fever, chills, + weakness or fatigue. HEENT: + Chronic sinus drainage. Eyes: No visual loss, blurred vision, double vision or yellow sclerae. Ears, Nose, Throat: No hearing loss, sneezing, congestion, runny nose or sore throat. SKIN: No rash or itching, lesions, wounds. CARDIOVASCULAR: + chest pain, chest pressure or chest discomfort, chronic unchanged BL edema. No marked orthopnea, palpitations, syncopal events. RESPIRATORY: + shortness of breath, No cough or sputum, wheezing, hemoptysis. GASTROINTESTINAL: No anorexia, nausea, vomiting or diarrhea, abdominal pain, melena, BRBPR. GENITOURINARY: No dysuria, frequency, urgency or retention. NEUROLOGICAL: No headache, dizziness, syncope, paralysis, ataxia, numbness or tingling in the extremities, focal weakness, change in bowel or bladder control, seizure. MUSCULOSKELETAL: + muscle, back pain, joint pain or stiffness. HEMATOLOGIC: No anemia, bleeding or bruising. LYMPHATICS: No enlarged nodes. No history of splenectomy. PSYCHIATRIC: + history of depression or anxiety. ENDOCRINOLOGIC: No reports of sweating, cold or heat intolerance. No polyuria or polydipsia. ALLERGIES: + rhinitis. Vital Signs Vital Signs Vital Signs: 03/07/23 04:30 03/07/23 04:34 03/07/23 04:58 Temperature 98.0 F Temperature Source Temporal Pulse Rate 87 Respiratory Rate 16 Blood Pressure 136/66 H Blood Pressure Mean 89 Pulse Ox 86 89 Oxygen Delivery Method Nasal Cannula Nasal Cannula Oxygen Flow Rate (L/min) 3 3 03/07/23 06:10 Temperature 97.9 F Temperature Source Pulse Rate 76 Respiratory Rate 20 H Blood Pressure 119/58 L Blood Pressure Mean 78 Pulse Ox 96 Oxygen Delivery Method Oxygen Flow Rate (L/min) Weight Weight: 221 lb 1.978 oz Body Mass Index (BMI) 39.2 Physical Exam Narrative Physical Examination: General: Awake, alert, oriented x 3 and cooperative, seated upright in the ED bed in no apparent distress, report still having chest discomfort, 5/10, improved from prior, anxious. Skin: Normal color, normal turgor, no icterus, no cyanosis. HEENT: AT/NC, EOMI, PERRLA, MMM, no carotid bruits, unable to discern notable JVD secondary to thickened neck. Lungs: Diminished, greater bases, mildly increased RR, no appreciated rales nor any rhonchi or wheezing. Heart: Regular rate and rhythm; no gallop, rub audible. Abdomen: Soft, obese, NTTP, ND, distant normal BS, no HSM. Extremities: No cyanosis, no clubbing, peripheral ankle mild pitting edema chronic stable. Neurological: Patient awake, alert, oriented as noted, cognitive function intact; pupils equally reactive to light and accommodation, cranial nerves II-XII grossly normal, moving all 4 extremities, no focal deficits, strength moderately to severely global decrease secondary to acute presentation. Psychiatric: Affect appears fatigued, anxious, no acute evidence of depressive feelings but does have underlying history. Results Lab / Micro Data 03/07/23 05:00 03/07/23 05:00 Labs: Laboratory Results - last 24 hr 03/07/23 05:00: WBC 10.8, RBC 3.59 L, Hgb 10.7 L, Hct 33.0 L, MCV 91.9, MCH 29.8, MCHC 32.4, RDW Std Deviation 41.7, RDW Coeff of Danelle 12.5, Plt Count 208, MPV 11.5, Immature Gran % (Auto) 0.500, Neut % (Auto) 76.3 H, Lymph % (Auto) 14.4 L, [place] % (Auto) 6.2, Eos % (Auto) 2.1, Baso % (Auto) 0.5, Absolute Neuts (auto) 8.3 H, Absolute Lymphs (auto) 1.56, Nucleated RBC % 0, APTT 23.0 L, Sodium 137, Potassium 4.3, Chloride 111 H, Carbon Dioxide 20.0 L, Anion Gap 6, BUN 33 H, Creatinine 1.78 H, Estim Creat Clear Calc 18.42, Est GFR (MDRD) Af Amer 35 L, Est GFR (MDRD) Non-Af 29 L, BUN/Creatinine Ratio 18.5, Glucose 108 H, Calcium 8.4 L, Troponin I High Sens 932 H* Rhythm Strip Rhythm Strip: Sinus Rhythm Ectopy: None Radiology Impression Chest X-Ray 03/07/23 05:13 IMPRESSION: Cardiomegaly and interstitial edema. Electronically Signed: Luis A Thibodeaux DO at 5:30 EDT , Assessment & Plan Assessment/Plan (1) Chest pain: PLAN: Plan The patient is a 87 y/o F w/ PMHx: HFpEF, Anxiety and Depression, CKD stge III unclear subtype, HTN, HLD, Anxiety and Depression, Morbid obesity, Hypothyroidism, recent discharge 03/04/23 following admission for chest pain with NSTEMI with cardiac catheterization with high grade proximal to mid LAD lession with PCI performed who now re-presents to the [facility] ED on 03/07/23 with nonpleuritic chest heaviness left-sided and also substernal with dyspnea and diaphoresis worse with any exertion and improved with rest initially however when she went to bed the evening prior to current presentation this discomfort recurred and that it did not go away and progressed through the evening prompting eventual ED evaluation. #1. Chest Pain w/ Elevated cardiac enzyme w/ recent NSTEMI s/p PCI admission as noted below: EKG in ED with sinus rhythm with ST depressions inferiorly however this is unchanged from previous, CXR w/ with appearance of diffuse interstitial opacities/congestion with cardiomegaly, initial trop 932 decreased from previous admission. Will admit to PCU, place on a monitored bed to assure no acute myocardial infarction with serial cardiac enzymes and EKGs. Magnesium level requested. Recent FLP thus will not repeat. ASA, NG, morphine. #2. Acute hypoxia with suspected volume overload/HFpEF exacerbation: 03/03/2023 echocardiogram with normal LV size, LV systolic function lower limits of normal, EF 50%, regional wall motion abnormalities noted, PASP 45 mmHg. Chest x-ray at discharge with borderline cardiomegaly with no congestion however upon current presentation 03/07/2023 chest x-ray with mild diffuse interstitial opacities. Will obtain BNP. Will pulse dose with IV Lasix x1 now and this evening with then transition back to oral but may certainly continue pending response/cardiac discretion. We will continue to cycle cardiac enzymes, serial EKGs as needed, magnesium level requested, TSH level requested. Recent FLP thus will defer repeat. 03/08/23 repeat CXR in AM. #3. Acute Mild Renal Insufficiency on Chronic Kidney Disease Stage III, unclear subtype: Admission BUN/Cr 33/1.78, baseline renal function primarily 1.0-1.5, repeat BMP in AM. #4. Normocytic anemia, appears new onset: Admission Hgb 10.7, several checks since 02/03/23 11-10 range, 02/28/23 Hgb 13.3, will obtain guiac, iron panel, ferritin to be cautious and trend CBC. #5. CAD with recent NSTEMI: Recent presentation with NSTEMI as noted, status post PCI to the proximal to mid LAD, will continue aspirin, Plavix, metoprolol, lisinopril cautiously given mild acute renal insufficiency with hold if worsens. #6. Hypertension: Continue home regimen including metoprolol, spironolactone, lisinopril, Lasix, PRN hydralazine. If renal insufficiency worsens will hold spironolactone, lisinopril and Lasix temporarily as needed. As noted pulse dose IV lasix x 1. #7. Hyperlipidemia: We will continue patient on statin therapy. #8. Hypothyroidism: We will continue patient on levothyroxine regimen. #9. Morbid Obesity: Weight loss and lifestyle changes encouraged, nutrition consulted. #10. Anxiety and depression: We will continue patient home paroxetine regimen. #11. DVT prophylaxis: Leylanox, will use chemoprophylaxis dosing only unless troponin suddenly rises. #12. CODE status: Patient JAILENE is her 2 daughters and living will is currently in place. Full Code status. Charges/Coding Visit Charges Inpatient E&M: 78900 Init Hosp L3
[2023-03-07] MEDS: Furosemide 40 MG/4 ML Vial IV ×3 (06:28→20:15)
[2023-03-07 06:56] LABS: Ferritin 212 ng/mL (8-252); Iron 48 ug/dL (50-170); Iron Binding Capacity,Total 335 ug/dL (250-450); PERCENT IRON SATURATION 14.3 % (15.0-55.0)
[2023-03-07 07:02] LABS: Reflex Troponin-HS? (from REC) Y
--- NOTE | 2023-03-07 07:21 | PCM.PN.BLA ---
Progress Note Patient is an 87-year-old lady with recent hospitalization for acute non-STEMI for which she underwent PCI to a high-grade proximal to mid LAD lesion discharged home presented back to the emergency department with chest discomfort and shortness of breath imaging studies demonstrated bilateral vascular congestion in the lungs admitted to monitored bed for further management Physical Exam Narrative GENERAL: cooperative HEENT: Atraumatic; normocephalic EYES; Anicteric, Normal Conjunctiva NECK; supple, normal thyroid, RESPIRATORY: Diminished to auscultation CARDIOVASCULAR: Regular S1 S2, GI: soft, normoactive bowel sounds, : No Renal angle tenderness; EXTREMITIES: Bipedal edema, no clubbing, MUSCULOSKELETAL: no muscle wasting NEURO: Awake; no lateralizing signs. SKIN: No Rash PSYCH; Flat affect Assessment & Plan Assessment/Plan (1) CHF (congestive heart failure): QUALIFIERS: Heart failure type: diastolic Heart failure chronicity: acute Qualified Code(s): I50.31 - Acute diastolic (congestive) heart failure PLAN: Plan Patient is an 87-year-old lady with recent hospitalization for acute non-STEMI for which she underwent PCI to a high-grade proximal to mid LAD lesion discharged home presented back to the emergency department with chest discomfort and shortness of breath imaging studies demonstrated bilateral vascular congestion in the lungs admitted to monitored bed for further management 1. Congestive heart failure with preserved ejection fraction ? Echo from patient hospitalization performed on 03/03/2023 demonstrated EF of 50%. Patient admitted to monitored bed placed on fluid restriction, strict input and output, low-sodium diet, daily weight. Patient was also started on diuretics 2. Recent admission for acute non-STEMI ? Patient underwent left heart catheterization which demonstrated high-grade proximal to mid LAD lesion. She underwent PCI subsequently discharged home on guideline directed medical therapy 3. Mitral regurgitation: Plan is for patient to follow-up as outpatient with cardiology for consideration for possible mitral valve clip 4. Hypothyroidism - Patient is on levothyroxine home dose continued 5. Hypertension - Blood pressure controlled, home medications continued with dose adjustment as needed 6. Dyslipidemia -Patient is on statin therapy, continued at home dose 7. Depression ? Patient on Paxil did continue 8. Class II obesity with BMI of 37.6 ? Complicating care, weight loss advised 9. Physical deconditioning - Requested for PT OT eval and social security assessor to assist with discharge planning 10. Chronic kidney disease stage III ? Kidney function at baseline which ranges from 1.6-2.04. Creatinine on admission 1.30 11. DVT prophylaxis ? SC Lovenox dose adjusted for kidney function Time spent in the patient's overall evaluation,decision-making process, review of diagnostic data, adjustment of management, discussion with other providers, nursing nursing and ancillary staff involved in patient's care documentation, 50 Minutes Visit Charges Inpatient E&M: [id number] [place] [id number]
[2023-03-07 07:30] LABS: BNP,B-Type NATRIURETIC PEPTIDE 969.7 pg/mL (0-100)
[2023-03-07 07:57] LABS: Troponin-I HS 763 pg/mL (3.0-54.0)
[2023-03-07] MEDS: Enoxaparin 30 MG/0.3 ML Syringe SC (11:58)
[2023-03-07] MEDS: Aspirin E.C. 81 MG Tablet PO (11:58)
[2023-03-07] MEDS: Spironolactone 25 MG Tablet 12.5 MG PO (11:59)
[2023-03-07] MEDS: Metoprolol Tartrate 25 MG Tablet PO ×2 (12:00→20:10)
[2023-03-07] MEDS: Clopidogrel Bisulfate 75 MG Tablet PO (12:01)
[2023-03-07] MEDS: Lisinopril 10 MG Tablet PO (12:01)
[2023-03-07] MEDS: Paroxetine 20 MG Tablet 40 MG PO (12:02)
[2023-03-07 12:04] LABS: Troponin-I HS 707 pg/mL (3.0-54.0)
--- NOTE | 2023-03-07 14:01 | CON.PCM.CA_ITS ---
Assessment & Plan Assessment/Plan (1) Elevated troponin I level: PLAN: Trending down from recent non-STEMI. (2) Chest pain: QUALIFIERS: Chest pain type: unspecified Qualified Code(s): R07.9 - Chest pain, unspecified PLAN: Appears related to her shortness of breath which appears to be related to her CHF. It is improved. (3) Stented coronary artery: (4) CHF (congestive heart failure): QUALIFIERS: Heart failure type: diastolic Heart failure chronicity: acute Qualified Code(s): I50.31 - Acute diastolic (congestive) heart failure PLAN: Improved since admission. Reasonable to switch her to Lasix 40 mg p.o. twice daily. If patient is doing well tomorrow and if her creatinine is stable or coming down then she could be discharged home on 40 mg p.o. daily of Lasix with additional 40 mg dose as needed. HPI Consult Data Date of Consult: 03/07/23 HPI Narrative Reason for Consultation: Chest heaviness, shortness of breath HPI Narrative: ANDREW MOMIN, is a 87 F who presents with chest heaviness and shortness of breath. Patient had recent PCI to the LAD on March 03, 2023. Please refer to the consult and progress note from that admission for full details. This time patient presented to the emergency room with symptoms as mentioned. Her troponin was in the 900s. Last admission it was over 20,000 and was trending down. Patient was admitted to the PCU and was given IV Lasix. Her troponin has continued to trend down and is now in the low 700s. Her symptoms have also improved significantly. Her creatinine has gone up slightly. Review of systems: All systems reviewed. All else is negative except that in [facility] Medical History (Updated 03/07/23 @ 14:[address] Connie Cortez MD) (HFpEF) heart failure with preserved ejection fraction Anxiety and depression Arteriosclerotic coronary artery disease CHF (congestive heart failure) CKD (chronic kidney disease), stage III HLD (hyperlipidemia) Hypertension Hypothyroidism Myocardial infarct Non-smoker Obesity Home Medications paroxetine HCl 40 mg tablet 40 mg PO DAILY mental health 08/11/22 [History Last Taken 02/27/23] aspirin 81 mg tablet,delayed release 81 mg PO BREAKFAST heart health #30 tabs 08/13/22 [Rx Last Taken 02/28/23] levothyroxine 88 mcg tablet 88 mcg PO DAILY thyroid 08/22/22 [History Last Taken 02/27/23] atorvastatin 40 mg tablet 40 mg PO QHS cholesterol #90 tabs 10/01/22 [Rx Last Taken 02/27/23] furosemide 40 mg tablet 40 mg PO DAILY diuretic #90 tabs 10/01/22 [Rx Last Taken 02/27/23] lisinopril 10 mg tablet 10 mg PO DAILY blood pressure #90 tabs 10/01/22 [Rx Last Taken 02/28/23] spironolactone 25 mg tablet 12.5 mg (1/2 x 25 mg) PO DAILY diuretic #45 tabs 10/01/22 [Rx Last Taken 02/27/23] clopidogrel 75 mg tablet 75 mg PO DAILY #90 tabs 03/04/23 [Rx Last Taken Unknown] metoprolol tartrate 25 mg tablet 25 mg PO BID 180 days #360 tabs 03/04/23 [Rx Last Taken Unknown] Allergy/AdvReac Type Severity Reaction Status Date / Time No Known Allergies Allergy Verified 03/07/23 04:36 Family History Mother Heart disease Hypertension CHF (congestive heart failure) Father Heart disease Hypertension CHF (congestive heart failure) CAD (coronary artery disease) Myocardial infarction Surgical History History of carpal tunnel release History of tonsillectomy and adenoidectomy Stented coronary artery (03/03/23) Social History household members: none Smoking Status: Never smoker alcohol intake: never substance use type: does not use Physical Exam Const alert and oriented x3 HEENT normocephalic Eyes no scleral icterus Resp clear to auscultation bilaterally Extremity Extremity Narrative: 1+ bilateral pitting edema Psych mental status grossly normal Risk Stratification Risk Stratification Applicable: No Charges/Coding Visit Charges Inpatient E&M: 20512 Subs Hosp L2 Objective Data Vital Signs: Vital Signs Temp Pulse Resp BP Pulse Ox O2 Del Method O2 Flow Rate 97.7 F L 71 16 124/62 H 97 Nasal Cannula 2 03/07/23 11:50 03/07/23 12:00 03/07/23 11:50 03/07/23 12:00 03/07/23 12:21 03/07/23 12:21 03/07/23 12:21 Oxygen Flow Rate (L/min) 2 Oxygen Delivery Method Nasal Cannula Weight: 212 lb 1.355 oz Body Mass Index (BMI) 37.5 Intake & Output: Intake and Output for Last 24 Hours 03/05/23 03/06/23 03/07/23 23:59 23:59 23:59 Intake Total 595 / 595 Balance 595 / 595 Lab / Micro Data 03/07/23 05:00 03/07/23 05:00 Labs: Laboratory Results - last 24 hr 03/07/23 05:00: WBC 10.8, RBC 3.59 L, Hgb 10.7 L, Hct 33.0 L, MCV 91.9, MCH 29.8, MCHC 32.4, RDW Std Deviation 41.7, RDW Coeff of Danelle 12.5, Plt Count 208, MPV 11.5, Immature Gran % (Auto) 0.500, Neut % (Auto) 76.3 H, Lymph % (Auto) 14.4 L, [place] % (Auto) 6.2, Eos % (Auto) 2.1, Baso % (Auto) 0.5, Absolute Neuts (auto) 8.3 H, Absolute Lymphs (auto) 1.56, Nucleated RBC % 0, APTT 23.0 L, Sodium 137, Potassium 4.3, Chloride 111 H, Carbon Dioxide 20.0 L, Anion Gap 6, BUN 33 H, Creatinine 1.78 H, Estim Creat Clear Calc 18.42, Est GFR (MDRD) Af Amer 35 L, Est GFR (MDRD) Non-Af 29 L, BUN/Creatinine Ratio 18.5, Glucose 108 H, Calcium 8.4 L, Magnesium 2.0, Iron 48 L, TIBC 335, Iron Saturation 14.3 L, Ferritin 212, Troponin I High Sens 932 H*, B-Natriuretic Peptide 969.7 H 03/07/23 06:45: Troponin I High Sens 763 H* 03/07/23 11:25: Troponin I High Sens 707 H* Rhythm Strip Rhythm Strip: Sinus Rhythm Ectopy: None Cardiology Labs/Tests 03/07/23 05:00: WBC 10.8, RBC 3.59 L, Hgb 10.7 L, Hct 33.0 L, MCV 91.9, MCH 29.8, MCHC 32.4, Plt Count 208, MPV 11.5, Immature Gran % (Auto) 0.500, Neut % (Auto) 76.3 H, Lymph % (Auto) 14.4 L, [place] % (Auto) 6.2, Eos % (Auto) 2.1, Baso % (Auto) 0.5, Absolute Neuts (auto) 8.3 H, Nucleated RBC % 0, APTT 23.0 L, Sodium 137, Potassium 4.3, Chloride 111 H, Carbon Dioxide 20.0 L, Anion Gap 6, BUN 33 H, Creatinine 1.78 H, Est GFR (MDRD) Af Amer 35 L, Est GFR (MDRD) Non-Af 29 L, BUN/Creatinine Ratio 18.5, Glucose 108 H, Calcium 8.4 L, Magnesium 2.0, Iron 48 L, TIBC 335, Iron Saturation 14.3 L, Ferritin 212, B-Natriuretic Peptide 969.7 H Rhythm: EKG: ECHO: Stress Test: Cardiac Cath: PCI: CT Surgery: Holter monitor: EPS: PPM: CXR: Chest CT Scan: Radiography Diagnostic Testing: Radiology Impression Chest X-Ray 03/07/23 05:13 IMPRESSION: Cardiomegaly and interstitial edema. Electronically Signed: Luis A Thibodeaux DO at 5:30 EDT ,
--- NOTE | 2023-03-07 14:38 | CASEMGMT ---
Met with patient to complete ALMEIDA form. ALMEIDA form explained to patient who voiced understanding and signed form. Original form placed in pt?s chart and copy provided to?patient. Laura Birch, Discharge Planning Asst
[2023-03-07] MEDS: Atorvastatin Calcium 40 MG Tablet PO (20:15)
[2023-03-08 02:45] VITALS: PULSE 66
[2023-03-08 03:00] VITALS: BP 116/60; PULSE 66; RESP 16; TEMP 36.4; O2SAT 94
[2023-03-08] MEDS: Furosemide 40 MG/4 ML Vial IV (05:53)
[2023-03-08] MEDS: Levothyroxine 88 MCG Tablet PO (05:53)
--- NOTE | 2023-03-08 05:55 | RAD_ITS ---
EXAM: XR CHEST, 1 VIEW CLINICAL INDICATION: Dyspnea TECHNIQUE: Frontal view of the chest. COMPARISON: 03/07/2023. FINDINGS: LUNGS AND PLEURAL SPACES: Improvement of pulmonary interstitial edema. Improvement of pulmonary vascular redistribution and congestion. No pneumothorax. No effusion. HEART: Unremarkable. Normal cardiac size. MEDIASTINUM: Central airways and mediastinal contour are unremarkable. BONES/JOINTS: Unremarkable. SOFT TISSUES: Unremarkable. RAD/Chest 1 View (Portable) IMPRESSION: 1. Interval improvement of CHF. 2. No acute cardiopulmonary pathology. Electronically Signed: Mariano Dickson MD at 9:31 EDT ,
--- NOTE | 2023-03-08 07:16 | PN.HOSP_ITS ---
Reason for Visit Reason for Visit: Diagnoses Acute diastolic (congestive) heart failure (03/07/23) Chest pain, unspecified (03/07/23) Other specified abnormal findings of blood chemistry (03/07/23) Presence of coronary angioplasty implant and graft (03/07/23) Subjective Subjective Patient seen admit to improvement in overall clinical condition Objective Data Objective Data Vital Signs: Vital Signs Temp Pulse Resp BP Pulse Ox O2 Del Method O2 Flow Rate 97.6 F L 66 16 116/60 94 Room Air 2 03/08/23 03:00 03/08/23 03:00 03/08/23 03:00 03/08/23 03:00 03/08/23 03:00 03/08/23 03:00 03/07/23 12:21 Oxygen Flow Rate (L/min) 2 Oxygen Delivery Method Room Air Weight: 95.1 kg Body Mass Index (BMI) 37.1 Intake & Output: Intake and Output for Last 24 Hours 03/06/23 03/07/23 03/08/23 23:59 23:59 23:59 Intake Total 1195 / 1245 50 / 50 Output Total 600 / 600 Balance 1195 / 1245 -550 / -550 Lab / Micro Data 03/08/23 08:11 03/07/23 05:00 Labs: Laboratory Results - last 24 hr 03/07/23 05:00: B-Natriuretic Peptide 969.7 H 03/07/23 06:45: Troponin I High Sens 763 H* 03/07/23 11:25: Troponin I High Sens 707 H* Rhythm Strip Rhythm Strip: Sinus Rhythm Ectopy: None Physical Exam Narrative GENERAL: cooperative HEENT: Atraumatic; normocephalic EYES; Anicteric, Normal Conjunctiva NECK; supple, normal thyroid, RESPIRATORY: Diminished to auscultation CARDIOVASCULAR: Regular S1 S2, GI: soft, normoactive bowel sounds, : No Renal angle tenderness; EXTREMITIES: Bipedal edema, no clubbing, MUSCULOSKELETAL: no muscle wasting NEURO: Awake; no lateralizing signs. SKIN: No Rash PSYCH; Flat affect Assessment & Plan Assessment/Plan (1) CHF (congestive heart failure): QUALIFIERS: Heart failure chronicity: acute Heart failure type: diastolic Qualified Code(s): I50.31 - Acute diastolic (congestive) heart failure PLAN: Plan Patient is an 87-year-old lady with recent hospitalization for acute non-STEMI for which she underwent PCI to a high-grade proximal to mid LAD lesion discharged home presented back to the emergency department with chest discomfort and shortness of breath imaging studies demonstrated bilateral vascular congestion in the lungs admitted to monitored bed for further management 1. Congestive heart failure with preserved ejection fraction ? Echo from patient hospitalization performed on 03/03/2023 demonstrated EF of 50%. Patient admitted to monitored bed placed on fluid restriction, strict input and output, low-sodium diet, daily weight. Patient was also started on diuretics 2. Recent admission for acute non-STEMI ? Patient underwent left heart catheterization which demonstrated high-grade proximal to mid LAD lesion. She underwent PCI subsequently discharged home on guideline directed medical therapy 3. Mitral regurgitation: Plan is for patient to follow-up as outpatient with cardiology for consideration for possible mitral valve clip 4. Hypothyroidism - Patient is on levothyroxine home dose continued 5. Hypertension - Blood pressure controlled, home medications continued with dose adjustment as needed 6. Dyslipidemia -Patient is on statin therapy, continued at home dose 7. Depression ? Patient on Paxil did continue 8. Class II obesity with BMI of 37.6 ? Complicating care, weight loss advised 9. Physical deconditioning - Requested for PT OT eval and medical social consultant to assist with discharge planning 10. Chronic kidney disease stage III ? Kidney function at baseline which ranges from 1.6-2.04. Creatinine on admission 1.30 11. DVT prophylaxis ? SC Lovenox dose adjusted for kidney function Time spent in the patient's overall evaluation,decision-making process, review of diagnostic data, adjustment of management, discussion with other providers, nursing nursing and ancillary staff involved in patient's care documentation, 50 Minutes Charges/Coding Visit Charges Inpatient E&M: 50383 Subs Hosp L2
[2023-03-08 08:31] VITALS: O2SAT 94
[2023-03-08 08:52] VITALS: BP 104/60; PULSE 72; RESP 18; TEMP 37; O2SAT 93
[2023-03-08] MEDS: Lisinopril 10 MG Tablet PO (08:56)
[2023-03-08] MEDS: Clopidogrel Bisulfate 75 MG Tablet PO (08:56)
[2023-03-08] MEDS: Aspirin E.C. 81 MG Tablet PO (08:56)
[2023-03-08 08:57] VITALS: BP 104/60; PULSE 72
[2023-03-08] MEDS: Enoxaparin 30 MG/0.3 ML Syringe SC (08:57)
[2023-03-08] MEDS: Spironolactone 25 MG Tablet 12.5 MG PO (08:57)
[2023-03-08] MEDS: Paroxetine 20 MG Tablet 40 MG PO (08:57)
[2023-03-08] MEDS: Metoprolol Tartrate 25 MG Tablet PO (08:57)
[2023-03-08] MEDS: 0.9% Saline Lock 10 ML Syringe IV (08:59)
[2023-03-08 09:24] LABS: Absolute Lymphocyte Count 1.65 X10^3/uL (0.83-4.51); Absolute Neutrophil Count 3.6 X10^3/uL (2.0-7.7); Basophil# 0.06 X10^3/uL; Eosinophil# 0.24 X10^3/uL; Eosinophils% 3.9 % (0-5); Hematocrit 36.3 % (37-47); Lymphocyte # 1.65 X10^3/ul (0.83-4.51); Mean Corp Hgb Conc 33.1 g/dL (32-36); Mean Corpuscular Hgb 30.5 pg (27.0-32.0); Mean Corpuscular Volume 92.1 fL (81-99); Mean Platelet Vol. 11.6 fl (6.2-12.0); Monocyte# 0.54 X10^3/uL; Monocyte% 8.9 % (0-10); NRBC Flagged by Analyzer 0 % (0-5); Neutrophil # 3.59 X10^3/uL (2.7-7.7); Neutrophil % 58.9 % (47-70); Platelet Count 244 K/mm3 (150-450); RBC Distribution Width CV 12.8 % (11.6-14.6); RBC Distribution Width SD 43.4 fl (35.1-43.9); Red Blood Count 3.94 M/mm3 (4.2-5.4); White Blood Count 6.1 K/mm3 (4.4-11.0)
--- NOTE | 2023-03-08 09:43 | PCM.DC.SUM ---
Providers Date of Admission: 03/07/23 Date of Discharge: 03/08/23 Primary Care Physician: Dr. Neville Serrano MD Consultations 03/07/23 09:19 Consult: Cardiology Routine Consulting Provider: Connie Cortez Reason for Consult: Chest pain w/ recent NSTEMI/PCI, suspect overload/HFpEF component EMERGENT Consult: No MD Notified: Yes Date Notified: 03/07/23 Time Notified: 06:48 Method of Notification: ED Physician Initiated Reason For Visit: CHEST PAIN Diagnosis Discharge Diagnosis (1) CHF (congestive heart failure): Status: Chronic Code(s): I50.9 - Heart failure, unspecified Qualifiers: Heart failure type: diastolic Heart failure chronicity: acute Qualified Code(s): I50.31 - Acute diastolic (congestive) heart failure Plan Patient is an 87-year-old lady with recent hospitalization for acute non-STEMI for which she underwent PCI to a high-grade proximal to mid LAD lesion discharged home presented back to the emergency department with chest discomfort and shortness of breath imaging studies demonstrated bilateral vascular congestion in the lungs admitted to monitored bed for further management 1. Acute Congestive heart failure with preserved ejection fraction ? Echo from patient hospitalization performed on 03/03/2023 demonstrated EF of 50%. Patient admitted to monitored bed placed on fluid restriction, strict input and output, low-sodium diet, daily weight. Patient was also started on diuretics ? 03/08/2023 patient did improve with diuresis Case discussed with cardiology Dr. Cortez recommended discharge with Lasix as needed in addition to patient scheduled Lasix 2. Recent admission for acute non-STEMI ? Patient underwent left heart catheterization which demonstrated high-grade proximal to mid LAD lesion. She underwent PCI subsequently discharged home on guideline directed medical therapy 3. Mitral regurgitation: Plan is for patient to follow-up as outpatient with cardiology for consideration for possible mitral valve clip 4. Hypothyroidism - Patient is on levothyroxine home dose continued 5. Hypertension - Blood pressure controlled, home medications continued with dose adjustment as needed 6. Dyslipidemia -Patient is on statin therapy, continued at home dose 7. Depression ? Patient on Paxil did continue 8. Class II obesity with BMI of 37.6 ? Complicating care, weight loss advised 9. Physical deconditioning - Requested for PT OT eval and social services director to assist with discharge planning 10. Chronic kidney disease stage III ? Kidney function at baseline which ranges from 1.6-2.04. Creatinine on admission 1. DVT prophylaxis ? SC Lovenox dose adjusted for kidney function Medications at Discharge Home Medications paroxetine HCl 40 mg tablet 40 mg PO DAILY mental health 08/11/22 aspirin 81 mg tablet,delayed release 81 mg PO BREAKFAST heart health #30 tabs 08/13/22 levothyroxine 88 mcg tablet 88 mcg PO DAILY thyroid 08/22/22 atorvastatin 40 mg tablet 40 mg PO QHS cholesterol #90 tabs 10/01/22 furosemide 40 mg tablet 40 mg PO DAILY diuretic #90 tabs 10/01/22 lisinopril 10 mg tablet 10 mg PO DAILY blood pressure #90 tabs 10/01/22 spironolactone 25 mg tablet 12.5 mg (1/2 x 25 mg) PO DAILY diuretic #45 tabs 10/01/22 clopidogrel 75 mg tablet 75 mg PO DAILY #90 tabs 03/04/23 metoprolol tartrate 25 mg tablet 25 mg PO BID 180 days #360 tabs 03/04/23 furosemide 40 mg tablet (Lasix) 40 mg PO DAILY PRN weight gain #30 tabs 03/08/23 Hospital Course Summary of Care Provided Minutes Spent on Discharge: 35 Physical Exam Narrative GENERAL: cooperative HEENT: Atraumatic; normocephalic EYES; Anicteric, Normal Conjunctiva NECK; supple, normal thyroid, RESPIRATORY: Diminished to auscultation CARDIOVASCULAR: Regular S1 S2, GI: soft, normoactive bowel sounds, : No Renal angle tenderness; EXTREMITIES: Bipedal edema, no clubbing, MUSCULOSKELETAL: no muscle wasting NEURO: Awake; no lateralizing signs. SKIN: No Rash PSYCH; Flat affect Weight / BMI Weight Weight: 95.1 kg Body Mass Index (BMI) 37.1 ABG / Lab / Microbiology Data 03/08/23 08:11 03/07/23 05:00 Laboratory: Laboratory Results - last 24 hr 03/07/23 11:25: Troponin I High Sens 707 H* 03/08/23 08:11: WBC 6.1, RBC 3.94 L, Hgb 12.0, Hct 36.3 L, MCV 92.1, MCH 30.5, MCHC 33.1, RDW Std Deviation 43.4, RDW Coeff of Danelle 12.8, Plt Count 244, MPV 11.6, Immature Gran % (Auto) 0.300, Neut % (Auto) 58.9, Lymph % (Auto) 27.0, Marin % (Auto) 8.9, Eos % (Auto) 3.9, Baso % (Auto) 1.0, Absolute Neuts (auto) 3.6, Absolute Lymphs (auto) 1.65, Nucleated RBC % 0 Radiography Diagnostic Testing: Radiology Impression Chest X-Ray 03/08/23 05:55 IMPRESSION: 1. Interval improvement of CHF. 2. No acute cardiopulmonary pathology. Electronically Signed: Mariano Dickson MD at 9:31 EDT Reading Location ID and State: [address] [place] [address] , Service support , D/C Instructions Discharge Diet: 8 Cup Fluid Restriction and 2000 mg Sodium Diet Discharge Activity: Return to Normal Activity Call your doctor if you observe: Fever of 101 or Higher, Shortness of breath, Fainting spells and Chest pain Meaningful Use Info Meaningful Use Diagnoses (Choose all that apply): CHF CHF JL/ARB ordered at discharge?: Yes Documented LVEF (%): 50 Discharge Plan Admission Admit Date/Time: 03/07/23 06:22 Attending Provider: John Pickett Primary Care Provider: Neville Serrano Chi Consulting Providers: Marina Rogers; Connie Cortez Discharge Orders/Prescriptions Prescriptions: New furosemide [Lasix] 40 mg tablet 40 mg PO DAILY PRN (Reason: weight gain) Qty: 30 0RF Rx Instructions: As needed for more than 5 pound weight gain in a week Continued levothyroxine 88 mcg tablet 88 mcg PO DAILY paroxetine HCl 40 mg tablet 40 mg PO DAILY aspirin 81 mg Tablet,Delayed Release (Dr/Ec) 81 mg PO BREAKFAST Qty: 30 2RF clopidogrel 75 mg Tablet 75 mg PO DAILY Qty: 90 0RF metoprolol tartrate 25 mg Tablet 25 mg PO BID 180 Days Qty: 360 0RF atorvastatin 40 mg tablet 40 mg PO QHS Qty: 90 3RF furosemide 40 mg tablet 40 mg PO DAILY Qty: 90 3RF Rx Instructions: Take an additional 40 mg dose at 5 PM for increased leg swelling or weight gain 5 pounds in 1 week. spironolactone 25 mg tablet 12.5 mg PO DAILY Qty: 45 3RF lisinopril 10 mg tablet 10 mg PO DAILY Qty: 90 3RF Referrals / Follow Up: Neville Serrano Chi, MD [Primary Care Provider] - Within 2 Weeks Disposition Disposition (needs filled in before D/C Order can be placed): Home, Self Care Charges/Coding Visit Charges Inpatient E&M: 02069 Disch Hosp >30min
[2023-03-08 09:45] LABS: Phosphorus 3.6 mg/dL (2.5-4.9)
[2023-03-08 09:47] LABS: ALB/GLOB Ratio 0.8 RATIO (0.9-2.4); AST(SGOT) 15 U/L (15-37); Alanine Aminotransfer ALT/SGPT 22 U/L (13-56); Alkaline Phosphatase 83 U/L (45-117); Anion Gap 7 (5-15); BUN 35 mg/dL (7-18); BUN/Creat Ratio 23.3 RATIO (10-20); Calcium,Total 8.6 mg/dL (8.5-10.1); Chloride 104 mmol/L (98-107); EST Glomerular Filtration Rate 35 mL/min (>60); Est Glom Filt Rate - Afr Amer 42 mL/min (>60); Estimated Creatinine Clearance 21.86 ml/min; Globulin 3.6 g/dL (2.2-4.2); Glucose 108 mg/dL (74-106); Magnesium 2.1 mg/dL (1.6-2.6); Potassium 3.9 mmol/L (3.5-5.1); Protein, Total 6.6 g/dL (6.4-8.2); Sodium Level 138 mmol/L (136-145); Thyroid Stim Hormone (TSH) 6.73 uIU/mL (0.358-3.74)
[2023-03-08 11:34] VITALS: BP 115/52; PULSE 70; RESP 20; TEMP 36.8; O2SAT 95
== END 2023-03-08 13:29 | disposition home or self-care (01) ==
LOC: ED 06:13 → PCU 07:46
PROVIDERS: Admitting Provider Family Medicine; Emergency Provider Emergency Medicine; PCP Family Medicine Geriatric Medicine; Visit Provider Internal Medicine
DX: I13.0 Hypertensive heart and chronic kidney disease with heart failure and stage 1 through stage 4 chronic kidney disease, or unspecified chronic kidney disease (principal); I50.31 Acute diastolic (congestive) heart failure; I21.4 Non-ST elevation (NSTEMI) myocardial infarction; E11.9 Type 2 diabetes mellitus without complications; N18.30 Chronic kidney disease, stage 3 unspecified; Z79.82 Long term (current) use of aspirin; Z68.37 Body mass index [BMI] 37.0-37.9, adult; Z79.02 Long term (current) use of antithrombotics/antiplatelets; E66.9 Obesity, unspecified; Z95.5 Presence of coronary angioplasty implant and graft; E78.5 Hyperlipidemia, unspecified; Z79.899 Other long term (current) drug therapy; E03.9 Hypothyroidism, unspecified; Z79.890 Hormone replacement therapy; I25.10 Atherosclerotic heart disease of native coronary artery without angina pectoris; I34.0 Nonrheumatic mitral (valve) insufficiency
CPT/HCPCS: 36415; 71045; 80048; 80053; 82728; 83540; 83550; 83735; 83880; 84100; 84443; 84484; 85025; 85730; 93005; 94668; 96372; 96374; 96375; 96376; 97162; 97166; 99221; 99285; J7030; A4216; G0378; J1940; J2405

== ENCOUNTER → 2023-06-09 | Outpatient (CLI) | payer MEDICARE, OTHER, SELFPAY ==
[2023-06-09 14:38] LABS: Absolute Lymphocyte Count 2.56 X10^3/uL (0.83-4.51); Absolute Neutrophil Count 3.3 X10^3/uL (2.0-7.7); Basophil# 0.07 X10^3/uL; Eosinophil# 0.39 X10^3/uL; Eosinophils% 5.7 % (0-5); Hematocrit 38.3 % (37-47); Hemoglobin 12.6 g/dL (12.0-15.0); Lymphocyte # 2.56 X10^3/ul (0.83-4.51); Lymphocyte % 37.5 % (19-41); Mean Corp Hgb Conc 32.9 g/dL (32-36); Mean Corpuscular Hgb 29.6 pg (27.0-32.0); Mean Corpuscular Volume 89.9 fL (81-99); Mean Platelet Vol. 10.5 fl (6.2-12.0); Monocyte# 0.53 X10^3/uL; Monocyte% 7.8 % (0-10); NRBC Flagged by Analyzer 0 % (0-5); Neutrophil # 3.26 X10^3/uL (2.7-7.7); Neutrophil % 47.7 % (47-70); Platelet Count 271 K/mm3 (150-450); RBC Distribution Width CV 12.6 % (11.6-14.6); RBC Distribution Width SD 41.6 fl (35.1-43.9); Red Blood Count 4.26 M/mm3 (4.2-5.4); White Blood Count 6.8 K/mm3 (4.4-11.0)
--- OUTSIDE RECORDS SUMMARY | 2023-06-09 14:53 | XMS RPT_ITS | CCD ---
Author Name Unknown Address [address] [place] [address] [address] [place] [id number] Organization [facility] Care Team Providers Care Ecotherapist Name Role Phone Steve Shepherd Unavailable Medications Completed/Discontinued Medications Medication Drug Class(es) Dates Sig (Normalized) Sig (Original) amoxicillin 875 mg / clavulanate 125 mg oral tablet (4 sources) Penicillin-class Antibacterial Start: 03-28-2017 End: 04-07-2017 AMOXICILLIN-POT CLAVULANATE 875-125 MG TABS Take 1 tab every 12 hours AMOXICILLIN-POT CLAVULANATE [id number] Steve HUSTON atenolol (2 sources) beta-Adrenergic Jonas Start: 03-28-2017 ATENOLOL TABS ATENOLOL TABS [id number] Steve HUSTON ATORVASTATIN CALCIUM TABS (2 sources) HMG-CoA Reductase Inhibitor Start: 03-28-2017 ATORVASTATIN CALCIUM TABS as directed ATORVASTATIN CALCIUM TABS [id number] Steve HUSTON LISINOPRIL TABS (2 sources) Angiotensin Converting Enzyme Inhibitor Start: 03-28-2017 LISINOPRIL TABS as directed LISINOPRIL TABS [id number] Steve HUSTON LOPERAMIDE HCL CAPS (2 sources) Opioid Agonist Start: 03-28-2017 IMODIUM A-D CAPS as directed LOPERAMIDE HCL CAPS [id number] Steve HUSTON PAROXETINE HCL TABS (2 sources) Serotonin Reuptake Inhibitor Start: 03-28-2017 PAROXETINE HCL TABS as directed PAROXETINE HCL TABS [id number] Steve HUSTON LEVOTHYROXINE SODIUM TABS (2 sources) l-Thyroxine Start: 03-28-2017 LEVOTHYROXINE SODIUM TABS as directed LEVOTHYROXINE SODIUM TABS [id number] Steve HUSTON Problems Active Problems Problem Classification Problem Date Documented Da te Episodic/Chronic External Injury - Natural / Environment (2 sources) Bitten by cat, initial encounter; Translations: [Bitten by cat, initial encounter] Onset: 03-28-2017 03-28-2017 Past or Other Problems Problem Classification Problem Date Documented Da te Episodic/Chronic Skin and subcutaneous tissue infections (2 sources) Cellulitis of thumb ; Translations: [Cellulitis of right finger] Onset: 03-28-2017 03-28-2017 Episodic Results Test Name Value Interpretation Reference Range Facil it Vital Signs Date Time Vital Sign Value Performing Clinician Faci lity 03-28-2017 15:45-0500 BMI (Body Mass Index) 35.78 kg/m2 Steve HUSTON [facility] Work Phone: 03-28-2017 15:45-0500 Body Temperature 98.4 [degF] Steve HUSTON [facility] Work Phone: 03-28-2017 15:45-0500 BP Diastolic 74 mm[Hg] Steve HUSTON [facility] Work Phone: 03-28-2017 15:45-0500 BP Systolic 142 mm[Hg] Steve HUSTON [facility] Work Phone: 03-28-2017 15:45-0500 Height 160.[address] [facility] Work Phone: 03-28-2017 15:45-0500 Pulse (Heart Rate) 82 /min Steve HUSTON [facility] Work Phone: 03-28-2017 15:45-0500 Respiratory Rate 15 /min Steve HUSTON [facility] Work Phone: 03-28-2017 15:45-0500 Weight 91.[address] [facility] Work Phone: Plan of Treatment Date Care Activity Detail Author Start: 03-28-2017 End: 03-28-[address] [facility] Work Phone: [facility] Work Phone: Additional Source Comments FOR RECORDS PERTAINING TO PATIENTS WHO ARE OR HAVE BEEN ENROLLED IN A CHEMICAL DEPENDENCY/SUBSTANCEABUSE PROGRAM, SOME INFORMATION MAY BE OMITTED. This clinical summary was aggregated from multiple sources. Caution should be exercised in using it in the provision of clinical care. This summary normalizes information from multiple sources, and as a consequence, information in this document may materially change the coding, format and clinical context of patient data. In addition, data may be omitted in some cases. CLINICAL DECISIONS SHOULD BE BASED ON THE PRIMARY CLINICAL RECORDS. [email or web address]. provides no warranty or guarantee of the accuracy or completeness of information in this document.
[2023-06-09 14:55] LABS: Vitamin D,25 Hydroxy 18.4 ng/mL
[2023-06-09 15:00] LABS: ALB/GLOB Ratio 0.7 RATIO (0.9-2.4); AST(SGOT) 12 U/L (15-37); Alanine Aminotransfer ALT/SGPT 32 U/L (13-56); Albumin, Serum 3.2 g/dL (3.2-5.0); Alkaline Phosphatase 106 U/L (45-117); Anion Gap 9 (5-15); BUN 27 mg/dL (7-18); BUN/Creat Ratio 19.6 RATIO (10-20); Calcium,Total 8.8 mg/dL (8.5-10.1); Chloride 106 mmol/L (98-107); Creatinine, Serum 1.38 mg/dL (0.55-1.02); EST Glomerular Filtration Rate 38 mL/min (>60); Est Glom Filt Rate - Afr Amer 47 mL/min (>60); Globulin 4.6 g/dL (2.2-4.2); Glucose 127 mg/dL (74-106); Potassium 3.9 mmol/L (3.5-5.1); Protein, Total 7.8 g/dL (6.4-8.2); Sodium Level 137 mmol/L (136-145); Thyroid Stim Hormone (TSH) 2.23 uIU/mL (0.358-3.74)
== END | disposition home or self-care (01) ==
LOC: POLAB3 13:50
PROVIDERS: PCP Family Medicine Geriatric Medicine; Visit Provider Family Medicine Geriatric Medicine
DX: I10 Essential (primary) hypertension (principal); E55.9 Vitamin D deficiency, unspecified
CPT/HCPCS: 36415; 80053; 82306; 84443; 85025

== ENCOUNTER → 2023-07-30 | Outpatient (CLI) | payer MEDICARE, OTHER, SELFPAY ==
--- NOTE | 2023-07-30 12:44 | ECHOD_ITS ---
Reason For Study: MURMUR Procedure This was a 2D Doppler, Color Flow transthoracic echocardiogram. Exam performed in department. Left Ventricle Normal LV size. Left ventricular systolic function is lower limits of normal. The left ventricular ejection fraction is 50 %. Stage 1 diastolic dysfunction. [place] : Hypokinetic. Mid-Anterior : Hypokinetic. Lateral [place] : Hypokinetic. The rest of the wall segments are normal. Right Ventricle Normal RV size. Normal systolic function. Atria The left atrium is moderately enlarged. Normal right atrium. Mitral Valve Normal mitral valve. Mild-Moderate (1-2+) eccentric mitral valve insufficiency. Tricuspid Valve Normal tricuspid valve. Aortic Valve Trisinus/trileaflet aortic valve. Mild (1+) aortic valve insufficiency. Pulmonic Valve Normal pulmonic valve. Great Vessels Normal aortic root. The pulmonary artery is normal size. Inferior vena cava collapse with respiration. Pericardium/Pleural No pericardial effusion. MMode/2D Measurements & Calculations LVIDd: 5.0 cm IVSd: 1.1 cm LVOT diam: 1.9 cm LVIDs: 3.7 cm LVPWd: 0.95 cm LVOT area: 2.9 cm2 RVDd: 3.2 cm FS: 27.3 % Ao root diam: 3.1 cm LAV(MOD-bp): 79.5 ml LVAd ap4: 31.4 cm2 LAV(MOD-bp) Indexed: 40.2 ml/m2 LVLd ap4: 7.6 cm LAV(MOD-sp2): 77.4 ml EDV(MOD-sp4): 106.2 ml LAV(MOD-sp4): 78.6 ml EDV(sp4-el): 110.9 ml LVAs ap4: 19.0 cm2 LVLs ap4: 6.7 cm ESV(MOD-sp4): 46.5 ml ESV(sp4-el): 45.9 ml EF(MOD-sp4): 56.2 % EF(sp4-el): 58.6 % LVAd ap2: 27.7 cm2 SV(MOD-sp4): 59.6 ml SV(MOD-sp2): 48.0 ml LVLd ap2: 7.4 cm EDV(MOD-sp2): 87.2 ml EDV(sp2-el): 87.8 ml LVAs ap2: 17.3 cm2 LVLs ap2: 6.4 cm ESV(MOD-sp2): 39.3 ml ESV(sp2-el): 39.6 ml EF(MOD-sp2): 55.0 % SV(sp4-el): 64.9 ml LA dimension(2D): 4.4 cm LA A4 area: 25.3 cm2 RA A4 area: 10.0 cm2 TAPSE: 1.7 cm Time Measurements MV dec time: 0.21 sec Doppler Measurements & Calculations MV E max chris: 107.1 cm/sec Lat Peak E' Chris: 8.0 cm/sec Med Peak E' Chris: 5.0 cm/sec MV A max chris: 130.4 cm/sec E/E' lat: 13.4 E/E' med: 21.3 MV E/A: 0.82 MV V2 max: 158.9 cm/sec Ao V2 max: 138.5 cm/sec MV max P.1 mmHg MV dec slope: 519.9 cm/sec2 Ao max P.7 mmHg MV V2 mean: 104.4 cm/sec Ao V2 mean: 96.4 cm/sec MV mean P.6 mmHg Ao mean P.2 mmHg MV V2 VTI: 36.4 cm Ao V2 VTI: 32.2 cm AV (velocity ratio): 0.61 MVA(VTI): 1.5 cm2 MALISSA(I,D): 1.7 cm2 MALISSA(V,D): 1.8 cm2 LV V1 max: 88.5 cm/sec SV(LVOT): 56.3 ml PA V2 max: 80.1 cm/sec LV V1 max P.1 mmHg PA max PG (full): 1.2 mmHg LV V1 mean P.0 mmHg LV V1 mean: 69.0 cm/sec LV V1 VTI: 19.7 cm ECHO/Echo Complete Interpretation Summary Normal LV size. Left ventricular systolic function is lower limits of normal. The left ventricular ejection fraction is 50 %. Stage 1 diastolic dysfunction. Mild-Moderate (1-2+) eccentric mitral valve insufficiency. Compared to previous study, the left ventricular systolic function is the same. . Ordering Physician: Cathy See Referring Physician: Neville Serrano Chi Performed By: Randi Talbot RDCS
== END | disposition home or self-care (01) ==
LOC: CVS 12:43
PROVIDERS: PCP Family Medicine Geriatric Medicine; Referring Provider Physician Assistant Medical; Visit Provider Physician Assistant Medical
DX: I38 Endocarditis, valve unspecified (principal)
CPT/HCPCS: 93306

== ENCOUNTER 2023-08-13 04:03 | Emergency (ER) | payer MEDICARE, OTHER, SELFPAY ==
[2023-08-13 04:03] VITALS: BP 164/69; PULSE 91; RESP 18; TEMP 36.6; O2SAT 95; BMI 39.9
--- NOTE | 2023-08-13 04:10 | EKG12_ITS ---
Test Reason : DYSRHYTHMIA Blood Pressure : / mmHG Vent. Rate : 085 BPM Atrial Rate : 085 BPM P-R Int : 176 ms QRS Dur : 084 ms QT Int : 396 ms P-R-T Axes : 035 067 081 degrees QTc Int : 471 ms Normal sinus rhythm Nonspecific ST abnormality Abnormal ECG Confirmed by Rayshawn Ramirez ([id number]), pictures editor EMILY CAMPO ([id number]) on 08/15/2023 7:20:35 AM Referred By: Confirmed By:Rayshawn Ramierz
--- NOTE | 2023-08-13 04:10 | RAD_ITS ---
EXAM: XR CHEST, 1 VIEW CLINICAL INDICATION: hypertension TECHNIQUE: Frontal view of the chest. COMPARISON: Previous chest radiographs of 03/08/2020 and 02/28/2023. FINDINGS: LUNGS AND PLEURAL SPACES: Stable small benign calcified granuloma in the right upper lobe. No consolidation or edema. No pneumothorax. No effusion. HEART: Heart size is borderline enlarged with normal pulmonary vasculature. MEDIASTINUM: Thoracic aorta remains mildly elongated and calcific. BONES/JOINTS: Thoracic degenerative spurring. No acute osseous abnormality. SOFT TISSUES: Unremarkable. RAD/Chest 1 View (Portable) IMPRESSION: No radiographic evidence of acute cardiopulmonary disease. Electronically Signed: Dean Boone MD at 5:26 EDT ,
--- NOTE | 2023-08-13 04:11 | EX.ED.DYSGE1 ---
HPI History of Present Illness Chief Complaint: Nausea/Vomiting Informant: patient and EMS Narrative Narrative: 87-year-old female called the ambulance tonight because she states I do not feel good. She states that she found out she was allergic to atenolol because she was having diarrhea and that led to her having a heart attack so they took her off of atenolol and her diarrhea stopped. She states that she found out she was allergic to lisinopril because she had a cough and they stopped her lisinopril and it went away. She states that today she has been having some mild diarrhea and dry heaves. She states that she must be allergic to one of her other medications. She denies any new medications. When asked how she is feeling she states I do not feel good. When I ask what made her call the ambulance this evening as compared to earlier in the day she states I do not feel good. She took nothing for the diarrhea earlier in the day. She states that she did not take anything because she was only having a little bit. No reported fevers. Patient continuously cuts off staff as we attempt to ask any questions regarding medications or history or symptomology. The patient states that it builds and builds in here (pointing to her epigastrium) until I dry heave and then it gets better. [facility] Medical History (HFpEF) heart failure with preserved ejection fraction Anxiety and depression Arteriosclerotic coronary artery disease CHF (congestive heart failure) CKD (chronic kidney disease), stage III HLD (hyperlipidemia) Hypertension Hypothyroidism Mitral regurgitation Myocardial infarct Non-smoker Obesity Home Medications paroxetine HCl 40 mg tablet 40 mg PO DAILY mental health 08/11/22 [History Last Taken 02/27/23] aspirin 81 mg tablet,delayed release 81 mg PO BREAKFAST heart health #30 tabs 08/13/22 [Rx Last Taken 02/28/23] levothyroxine 88 mcg tablet 88 mcg PO DAILY thyroid 08/22/22 [History Last Taken 02/27/23] furosemide 40 mg tablet (Lasix) 40 mg PO DAILY PRN weight gain #30 tabs 03/08/23 [Rx Last Taken Unknown] clopidogrel 75 mg tablet 75 mg PO DAILY #90 tabs 03/18/23 [Rx Last Taken Unknown] metoprolol tartrate 25 mg tablet 25 mg PO BID 06/24/23 [History Last Taken Unknown] rosuvastatin 40 mg tablet 40 mg PO DAILY 06/24/23 [History Last Taken Unknown] losartan 25 mg tablet 25 mg PO DAILY #90 tabs 07/01/23 [Rx Last Taken Unknown] furosemide 40 mg tablet 40 mg PO DAILY diuretic #90 tabs 08/12/23 [Rx Last Taken Unknown] spironolactone 25 mg tablet See Rx Instructions .Route .COMPLEX #45 tabs 08/12/23 [Rx Last Taken Unknown] ondansetron 4 mg disintegrating tablet 4 mg PO Q6H PRN PRN Nausea #15 tabs 08/13/23 [Rx Last Taken Unknown] Allergy/AdvReac Type Severity Reaction Status Date / Time lisinopril AdvReac Intermediate Dry, Verified 08/13/23 04:09 hacking, constant cough atenolol AdvReac Abd Verified 08/13/23 04:09 cramps/diarrhea Family History Mother Heart disease Hypertension CHF (congestive heart failure) Father Heart disease Hypertension CHF (congestive heart failure) CAD (coronary artery disease) Myocardial infarction Surgical History History of carpal tunnel release History of tonsillectomy and adenoidectomy Stented coronary artery (03/03/23) Social History household members: none Smoking Status: Never smoker alcohol intake: never substance use type: does not use ROS ROS ED Constitutional Constitutional ED: Denies chills, fever(s) or weight loss Eyes Eyes: Denies change in vision or diplopia ENT ENT ED: Denies ear pain, rhinorrhea or sore throat Cardiovascular Cardiovascular: Denies chest pain, orthopnea, palpitations or racing heartbeat Respiratory/Chest Respiratory/Chest: Denies cough, dyspnea or orthopnea Gastrointestinal Gastrointestinal: Reports diarrhea and nausea; Denies abdominal pain or vomiting Genitourinary Genitourinary ED: Denies dysuria, hematuria or urinary frequency Musculoskeletal Musculoskeletal: Denies arthralgias or myalgias Integumentary Denies abscess or rash Neurologic Neurologic: Denies headache(s) or weakness Psychiatric Psychiatric: Denies anxiety, depression, suicidal ideation or suicidal thoughts Endocrine Endocrinology: Denies polydipsia, polyphagia or polyuria Allergic/Immunologic Allergic/Immunologic ED: Denies mouth swelling, tongue swelling or urticaria EXAM Physical Exam Const Vital Signs: 08/13/23 04:03 08/13/23 06:03 Temperature 97.9 F Temperature Source Oral Pulse Rate 91 84 Respiratory Rate 18 20 H Blood Pressure 164/69 H 131/54 H Blood Pressure Mean 100 79 Pulse Ox 95 95 Positive well nourished, well developed and obese General Appearance ED: well developed Nutritional Appearance: obese HEENT Reports normocephalic, head/scalp atraumatic and moist mucous membranes Eyes PERRL and EOMs intact bilaterally Neck no lymphadenopathy, supple and no JVD Resp normal respiratory effort and clear to auscultation bilaterally Cardio regular rate, regular rhythm and no murmurs GI normal to inspection, nondistended, normoactive bowel sounds and non-tender Palpation: soft Back/Spine no CVA tenderness and normal ROM Extremity normal to inspection General Extremety ED: Negative for edema General Extremity: Negative for edema Neuro oriented x3 and CN's II-XII intact bilaterally Sensorium / Orientation: alert Motor Exam: strength 5/5 throughout Psych mental status grossly normal Mood & Affect: Negative for depressed or tearful Skin no rashes or lesions noted and no wounds MDM MDM MDM Narrative Medical decision making narrative: My independent interpretation of the chest x-ray is no acute process. EKG demonstrates normal sinus rhythm with a ventricular rate of 85 bpm. White count 6.4 with a hemoglobin 12.6 platelet count is 211. BMP shows a creatinine of 1.15 BUN of 18 anion gap is 7 CO2 of 22. Glucose of 150. Lipase is 49 normal LFTs. COVID influenza and RSV swab was negative. Urinalysis demonstrates no overt infection. Specific artery 1.02. Patient received a dose of Zofran. No vomiting. Clinically I am not seeing evidence of dehydration. BUN is 18 with a creatinine 1.15. She is not tachycardic or hypotensive. She states she has had minimal diarrhea throughout the day. It is highly likely that the patient has a viral illness. As her symptoms just started and she has had no medication changes I did find it unlikely to be medication induced. I will write for the patient to have Zofran Imodium as needed for diarrhea oral hydration return if worsening or concerns History & Record Review Discussion w/independent historian: Patient Lab Data Attestation: I reviewed the patient's lab results. Labs: Laboratory Results - last 24 hr 08/13/23 08/13/23 04:20 05:18 WBC 6.4 RBC 4.41 Hgb 12.6 Hct 38.4 MCV 87.1 MCH 28.6 MCHC 32.8 RDW Std Deviation 40.3 RDW Coeff of Danelle 12.6 Plt Count 211 MPV 10.8 Immature Gran % (Auto) 0.300 Neut % (Auto) 68.4 Lymph % (Auto) 24.2 Grainger % (Auto) 5.7 Eos % (Auto) 0.8 Baso % (Auto) 0.6 Absolute Neuts (auto) 4.4 Absolute Lymphs (auto) 1.54 Nucleated RBC % 0 Sodium 134 L Potassium 3.5 Chloride 105 Carbon Dioxide 22.0 Anion Gap 7 BUN 18 Creatinine 1.15 H Estim Creat Clear Calc 39.39 Est GFR (MDRD) Af Amer 57 L Est GFR (MDRD) Non-Af 47 L BUN/Creatinine Ratio 15.7 Glucose 150 H Calcium 8.6 Total Bilirubin 0.50 Direct Bilirubin 0.12 AST 18 ALT 22 Alkaline Phosphatase 86 Troponin I High Sens 51 Total Protein 7.0 Albumin 3.2 Globulin 3.8 Lipase 49 Urine Color Yellow Urine Clarity Clear Urine pH 5.0 Ur Specific Tyler 1.020 Urine Protein 15 H Urine Glucose (UA) Normal Urine Ketones 5 H Urine Occult Blood 50 H Urine Nitrite Negative Urine Bilirubin Negative Urine Urobilinogen Normal Ur Leukocyte Esterase Negative Urine RBC 0 SEEN Urine WBC 0 SEEN Ur Squamous Epith Cells 0 SEEN Urine Bacteria 0 SEEN Urine Mucus 0 SEEN Radiography Diagnostic Testing: Clinical Impression(s) from Imaging Studies Chest X-Ray 08/13/23 04:10 IMPRESSION: No radiographic evidence of acute cardiopulmonary disease. Electronically Signed: Dean Boone MD at 5:26 EDT , EKG Initial EKG: Attestation: I personally reviewed and interpreted this EKG as follows: Comments: Normal sinus rhythm ventricular rate of 85 Prior EKG tracings: available for review Prior: Unchanged Discharge Plan Triage Chief Complaint: Nausea/Vomiting ED Provider: Lucio Fonseca Dx/Rx/DC Orders Clinical Impression: Diarrhea, Nausea Instructions: ED Diarrhea, Unknown Cause Prescriptions: New ondansetron [ondansetron] 4 mg tablet,disintegrating 4 mg PO Q6H PRN PRN (Reason: Nausea) Qty: 15 0RF No Action levothyroxine 88 mcg tablet 88 mcg PO DAILY clopidogrel 75 mg tablet 75 mg PO DAILY Qty: 90 3RF metoprolol tartrate 25 mg tablet 25 mg PO BID rosuvastatin 40 mg tablet 40 mg PO DAILY paroxetine HCl 40 mg tablet 40 mg PO DAILY aspirin 81 mg Tablet,Delayed Release (Dr/Ec) 81 mg PO BREAKFAST Qty: 30 2RF furosemide [Lasix] 40 mg tablet 40 mg PO DAILY PRN (Reason: weight gain) Qty: 30 0RF Rx Instructions: As needed for more than 5 pound weight gain in a week losartan 25 mg tablet 25 mg PO DAILY Qty: 90 3RF spironolactone 25 mg tablet See Rx Instructions .ROUTE .COMPLEX Qty: 45 3RF Dose Instruction: TAKE ONE-HALF TABLET(12.5 MG) ORALLY DAILY Rx Instructions: TAKE ONE-HALF TABLET(12.5 MG) ORALLY DAILY furosemide 40 mg tablet 40 mg PO DAILY Qty: 90 3RF Rx Instructions: Take an additional 40 mg dose at 5 PM for increased leg swelling or weight gain 5 pounds in 1 week. Primary Care Provider: Neville Serrano Chi Referrals: Neville Serrano Chi, MD [Primary Care Provider] - 3-5 Days if not improving Disposition Disposition: Home, Self Care
[2023-08-13] MEDS: Ondansetron 4 MG/2 ML Vial IV (04:22)
[2023-08-13 04:33] LABS: Absolute Lymphocyte Count 1.54 X10^3/uL (0.83-4.51); Absolute Neutrophil Count 4.4 X10^3/uL (2.0-7.7); Basophil# 0.04 X10^3/uL; Basophil% 0.6 % (0-1); Eosinophil# 0.05 X10^3/uL; Eosinophils% 0.8 % (0-5); Hematocrit 38.4 % (37-47); Hemoglobin 12.6 g/dL (12.0-15.0); Lymphocyte # 1.54 X10^3/ul (0.83-4.51); Lymphocyte % 24.2 % (19-41); Mean Corp Hgb Conc 32.8 g/dL (32-36); Mean Corpuscular Hgb 28.6 pg (27.0-32.0); Mean Corpuscular Volume 87.1 fL (81-99); Mean Platelet Vol. 10.8 fl (6.2-12.0); Monocyte# 0.36 X10^3/uL; Monocyte% 5.7 % (0-10); NRBC Flagged by Analyzer 0 % (0-5); Neutrophil # 4.36 X10^3/uL (2.7-7.7); Neutrophil % 68.4 % (47-70); Platelet Count 211 K/mm3 (150-450); RBC Distribution Width CV 12.6 % (11.6-14.6); RBC Distribution Width SD 40.3 fl (35.1-43.9); Red Blood Count 4.41 M/mm3 (4.2-5.4); White Blood Count 6.4 K/mm3 (4.4-11.0)
[2023-08-13 04:55] LABS: AST(SGOT) 18 U/L (15-37); Alanine Aminotransfer ALT/SGPT 22 U/L (13-56); Albumin, Serum 3.2 g/dL (3.2-5.0); Alkaline Phosphatase 86 U/L (45-117); Anion Gap 7 (5-15); BUN 18 mg/dL (7-18); BUN/Creat Ratio 15.7 RATIO (10-20); Bilirubin, Direct 0.12 mg/dL (0.00-0.30); Calcium,Total 8.6 mg/dL (8.5-10.1); Chloride 105 mmol/L (98-107); Creatinine, Serum 1.15 mg/dL (0.55-1.02); EST Glomerular Filtration Rate 47 mL/min (>60); Est Glom Filt Rate - Afr Amer 57 mL/min (>60); Estimated Creatinine Clearance 39.39 ml/min; Globulin 3.8 g/dL (2.2-4.2); Glucose 150 mg/dL (74-106); Lipase 49 U/L (13-75); Potassium 3.5 mmol/L (3.5-5.1); Sodium Level 134 mmol/L (136-145); Troponin-I HS 51 pg/mL (3.0-54.0)
[2023-08-13 05:22] LABS: Bacteria 0 SEEN /hpf (None Seen); Mucous, Urine 0 SEEN /hpf (<or=2+); Red Blood Cells-Urine 0 SEEN /hpf (0-5); Squamous Epithelial Cells - UA 0 SEEN /hpf (5-10); White Blood Cells 0 SEEN /hpf (0-5)
[2023-08-13 05:25] LABS: Color, Urine Yellow (Yellow); Glucose, Dipstick Normal (Normal); Ketone-Dipstick 5 mg/dl (Negative); Leukocyte Esterase-Dipstick Negative /ul (Negative); Nitrite-Dipstick Negative (Negative); Occult Blood-Urine 50 /ul (Negative); Protein-Dipstick 15 mg/dl (Negative); Urine Bilirubin Dipstick Negative (Negative); Urine Clarity Clear (Clear); Urine Urobilinogen Normal (Normal)
[2023-08-13 06:03] VITALS: BP 131/54; PULSE 84; RESP 20; O2SAT 95
[2023-08-13 06:34] VITALS: BP 132/62; PULSE 84; RESP 16; TEMP 36.3; O2SAT 99
== END 2023-08-13 06:34 | disposition home or self-care (01) ==
PROVIDERS: Emergency Provider Emergency Medicine; PCP Family Medicine Geriatric Medicine; Visit Provider Emergency Medicine
DX: R19.7 Diarrhea, unspecified (principal); N18.30 Chronic kidney disease, stage 3 unspecified; R11.2 Nausea with vomiting, unspecified; Z79.82 Long term (current) use of aspirin; Z79.899 Other long term (current) drug therapy; I25.2 Old myocardial infarction; I25.10 Atherosclerotic heart disease of native coronary artery without angina pectoris; E66.9 Obesity, unspecified; Z95.5 Presence of coronary angioplasty implant and graft
CPT/HCPCS: 71045; 80048; 80076; 81001; 83690; 84484; 85025; 87631; 93005; 96374; 99284; A4216; J2405

== ENCOUNTER → 2023-12-10 | Outpatient (CLI) | payer MEDICARE, OTHER, SELFPAY ==
[2023-12-10 15:58] LABS: Absolute Lymphocyte Count 2.35 X10^3/uL (0.83-4.51); Basophil# 0.07 X10^3/uL; Basophil% 1.1 % (0-1); Eosinophil# 0.23 X10^3/uL; Eosinophils% 3.7 % (0-5); Hematocrit 38.6 % (37-47); Hemoglobin 12.7 g/dL (12.0-15.0); Lymphocyte # 2.35 X10^3/ul (0.83-4.51); Lymphocyte % 37.7 % (19-41); Mean Corp Hgb Conc 32.9 g/dL (32-36); Mean Corpuscular Hgb 28.9 pg (27.0-32.0); Mean Corpuscular Volume 87.7 fL (81-99); Monocyte# 0.54 X10^3/uL; Monocyte% 8.7 % (0-10); NRBC Flagged by Analyzer 0 % (0-5); Neutrophil # 3.04 X10^3/uL (2.7-7.7); Neutrophil % 48.6 % (47-70); Platelet Count 221 K/mm3 (150-450); RBC Distribution Width CV 12.7 % (11.6-14.6); RBC Distribution Width SD 40.3 fl (35.1-43.9); White Blood Count 6.2 K/mm3 (4.4-11.0)
[2023-12-10 16:30] LABS: Vitamin D,25 Hydroxy 28.1 ng/mL
[2023-12-10 16:37] LABS: ALB/GLOB Ratio 0.9 RATIO (0.9-2.4); AST(SGOT) 15 U/L (15-37); Alanine Aminotransfer ALT/SGPT 17 U/L (13-56); Albumin, Serum 3.4 g/dL (3.2-5.0); Alkaline Phosphatase 88 U/L (45-117); Anion Gap 6 (5-15); BUN 30 mg/dL (7-18); BUN/Creat Ratio 26.8 RATIO (10-20); Chloride 108 mmol/L (98-107); Creatinine, Serum 1.12 mg/dL (0.55-1.02); EST Glomerular Filtration Rate 49 mL/min (>60); Est Glom Filt Rate - Afr Amer 59 mL/min (>60); Globulin 3.7 g/dL (2.2-4.2); Glucose 99 mg/dL (74-106); Potassium 4.3 mmol/L (3.5-5.1); Protein, Total 7.1 g/dL (6.4-8.2); Sodium Level 138 mmol/L (136-145); Thyroid Stim Hormone (TSH) 2.24 uIU/mL (0.358-3.74)
== END | disposition home or self-care (01) ==
LOC: LAB 14:30
PROVIDERS: PCP Family Medicine Geriatric Medicine; Referring Provider Family Medicine Geriatric Medicine; Visit Provider Family Medicine Geriatric Medicine
DX: I10 Essential (primary) hypertension (principal); E55.9 Vitamin D deficiency, unspecified
CPT/HCPCS: 36415; 80053; 82306; 84443; 85025

== ENCOUNTER 2024-04-25 04:07 | Inpatient (IN) | payer MEDICARE, OTHER, SELFPAY ==
[2024-04-25] VITALS (9 sets, daily range): BP systolic 121–172; BP diastolic 50–98; PULSE 78–101; RESP 16–27; TEMP 36.2–37; O2SAT 83–96; BMI 38.6; BMI 38.9
--- NOTE | 2024-04-25 04:47 | EKG12_ITS ---
Test Reason : SOB Blood Pressure : */* mmHG Vent. Rate : 87 BPM Atrial Rate : 87 BPM P-R Int : 184 ms QRS Dur : 86 ms QT Int : 392 ms P-R-T Axes : 54 84 79 degrees QTcB Int : 471 ms Normal sinus rhythm Nonspecific ST abnormality Abnormal ECG Confirmed by SYD BINGHAM, OSCAR ([id number]), newspaper photo editor EMIYL CAMPO ([id number]) on 04/26/2024 6:33:49 AM Referred By: Antwon Peguero Confirmed By: OSCAR VELARDE MD
--- NOTE | 2024-04-25 04:47 | EKG12_ITS ---
Test Reason : SOB Blood Pressure : */* mmHG Vent. Rate : 87 BPM Atrial Rate : 87 BPM P-R Int : 184 ms QRS Dur : 86 ms QT Int : 392 ms P-R-T Axes : 54 84 79 degrees QTcB Int : 471 ms Normal sinus rhythm Nonspecific ST abnormality Abnormal ECG Confirmed by SYD BINGHAM, OSCAR ([id number]), dictionary editor EMILY CAMPO ([id number]) on 04/26/2024 6:33:49 AM Referred By: Antwon Peguero Confirmed By: OSCAR VELARDE MD
[2024-04-25 05:04] LABS: Absolute Lymphocyte Count 1.24 X10^3/uL (0.83-4.51); Absolute Neutrophil Count 7.5 X10^3/uL (2.0-7.7); Basophil# 0.06 X10^3/uL; Basophil% 0.6 % (0-1); Eosinophil# 0.15 X10^3/uL; Eosinophils% 1.6 % (0-5); Hematocrit 40.1 % (37-47); Lymphocyte # 1.24 X10^3/ul (0.83-4.51); Lymphocyte % 13.2 % (19-41); Mean Corp Hgb Conc 32.4 g/dL (32-36); Mean Corpuscular Volume 92.4 fL (81-99); Mean Platelet Vol. 10.3 fl (6.2-12.0); Monocyte# 0.47 X10^3/uL; NRBC Flagged by Analyzer 0 % (0-5); Neutrophil # 7.45 X10^3/uL (2.7-7.7); Neutrophil % 79.2 % (47-70); Platelet Count 231 K/mm3 (150-450); RBC Distribution Width CV 12.8 % (11.6-14.6); Red Blood Count 4.34 M/mm3 (4.2-5.4); White Blood Count 9.4 K/mm3 (4.4-11.0)
--- NOTE | 2024-04-25 05:09 | ED.VIS.DYS ---
HPI History of Present Illness Chief Complaint: Shortness of Breath Informant: patient and EMS Narrative Narrative: 88-year-old female history of hypertension CHF CKD CAD presenting to the emergency department with dyspnea. Patient states that earlier today she felt in her normal state of health. When she went to bed she had felt fine. She woke tonight feeling short of breath. She notes no change in her chronic cough. Patient feels a tightness in her chest but no pain. She does not wear home oxygen. She notes that she takes Lasix and spironolactone. She notes swelling of her legs but does not feel they are any different than normal. No reported fevers. Chronically has rhinorrhea. Patient does not regularly weigh herself. [facility] Medical History (HFpEF) heart failure with preserved ejection fraction Arteriosclerotic coronary artery disease Mitral regurgitation Non-smoker Myocardial infarct Hypertension Obesity Anxiety and depression CKD (chronic kidney disease), stage III Hypothyroidism HLD (hyperlipidemia) CHF (congestive heart failure) Home Medications ?Medication ?Instructions ?Recorded ?Last Taken ?Type paroxetine HCl 40 mg tablet 40 mg PO DAILY mental health 08/11/22 02/27/23 History aspirin 81 mg tablet,delayed 81 mg PO BREAKFAST heart health 08/13/22 02/28/23 Rx release #30 tabs levothyroxine 88 mcg tablet 88 mcg PO DAILY thyroid 08/22/22 02/27/23 History rosuvastatin 40 mg tablet 40 mg PO DAILY 06/24/23 Unknown History losartan 25 mg tablet 25 mg PO DAILY #90 tabs 07/01/23 Unknown Rx furosemide 40 mg tablet 40 mg PO DAILY diuretic #90 tabs 08/12/23 Unknown Rx spironolactone 25 mg tablet See Rx Instructions .Route 08/12/23 Unknown Rx .COMPLEX #45 tabs clopidogrel 75 mg tablet 75 mg PO DAILY #90 tabs 02/12/24 Unknown Rx metoprolol tartrate 25 mg tablet 25 mg PO BID #180 tabs 03/29/24 Unknown Rx Allergy/AdvReac Type Severity Reaction Status Date / Time amlodipine Allergy Unknown PT UNSURE Verified 04/25/24 05:05 OF REACTION lisinopril AdvReac Intermediate Dry, Verified 01/09/24 08:56 hacking, constant cough atenolol AdvReac Abd Verified 01/09/24 08:56 cramps/diarrhea Family History Mother Heart disease Hypertension CHF (congestive heart failure) Father Heart disease Hypertension CHF (congestive heart failure) CAD (coronary artery disease) Myocardial infarction Surgical History Stented coronary artery (03/03/23) History of carpal tunnel release History of tonsillectomy and adenoidectomy Social History household members: none Smoking Status: Never smoker alcohol intake: never substance use type: does not use ROS ROS ED Constitutional Constitutional ED: Denies chills, fever(s) or weight loss Eyes Eyes: Denies change in vision or diplopia ENT ENT ED: Reports rhinorrhea; Denies ear pain or sore throat Cardiovascular Cardiovascular: Denies chest pain, orthopnea, palpitations or racing heartbeat Respiratory/Chest Respiratory/Chest: Reports cough, dyspnea and dyspnea on exertion; Denies orthopnea Gastrointestinal Gastrointestinal: Denies abdominal pain, diarrhea, nausea or vomiting Genitourinary Genitourinary ED: Denies dysuria, hematuria or urinary frequency Musculoskeletal Musculoskeletal: Denies arthralgias or myalgias Integumentary Denies abscess or rash Neurologic Neurologic: Denies headache(s) or weakness Psychiatric Psychiatric: Denies anxiety, depression, suicidal ideation or suicidal thoughts Endocrine Endocrinology: Denies polydipsia, polyphagia or polyuria Allergic/Immunologic Allergic/Immunologic ED: Denies mouth swelling, tongue swelling or urticaria EXAM Physical Exam Const Vital Signs: 04/25/24 04:08 04/25/24 04:09 04/25/24 04:13 Temperature 98.1 F Temperature Source Oral Pulse Rate 101 H Respiratory Rate 27 H Respiratory Effort Normal Non-Labored Respiratory Depth Shallow Respiratory Pattern Tachypnea Blood Pressure 172/73 H Blood Pressure Mean 106 Pulse Ox 91 83 Oxygen Delivery Method Nasal Cannula Room Air Nasal Cannula Oxygen Flow Rate (L/min) 4 Fraction of Inspired Oxygen (FIO2) 4 04/25/24 04:58 Temperature Temperature Source Pulse Rate Respiratory Rate Respiratory Effort Respiratory Depth Respiratory Pattern Blood Pressure Blood Pressure Mean Pulse Ox Oxygen Delivery Method Nasal Cannula Oxygen Flow Rate (L/min) 3 Fraction of Inspired Oxygen (FIO2) 93 Positive well nourished, well developed and obese General Appearance ED: well developed and NAD Nutritional Appearance: obese HEENT Reports normocephalic, head/scalp atraumatic and moist mucous membranes Eyes PERRL and EOMs intact bilaterally Neck no lymphadenopathy, supple and no JVD Resp normal respiratory effort Auscultation: rales and diminished lung sounds Cardio regular rate, regular rhythm and no murmurs GI normal to inspection, nondistended, normoactive bowel sounds and non-tender Palpation: soft Back/Spine no CVA tenderness and normal ROM Extremity General Extremety ED: Yes edema General Extremity: edema bilateral lower extremity (1-2+ pitting edema) Neuro oriented x3 and CN's II-XII intact bilaterally Sensorium / Orientation: alert Motor Exam: strength 5/5 throughout Psych mental status grossly normal Mood & Affect: Negative for depressed or tearful Skin no rashes or lesions noted and no wounds MDM MDM MDM Narrative Medical decision making narrative: Differential diagnosis includes but not limited to pulmonary edema congestive heart failure dehydration electrolyte abnormality anemia acute coronary syndrome pneumonia pleural effusion EKG is a normal sinus rhythm with a ventricular rate is 87 bpm. My independent interpretation the chest x-ray is pulmonary edema. White count 9.4 hemoglobin of 13. BMP shows a BUN of 34 creatinine 1.39. Troponin is 39 BNP 228.3. Patient has been receiving supplemental oxygen currently on 4 L nasal cannula. Patient received a dose of Lasix IV. Because of the hypoxia and pulmonary edema plan will be admission into hospital. History & Record Review Discussion w/independent historian: EMS personnel and Patient Lab Data Attestation: I reviewed the patient's lab results. Labs: Laboratory Results - last 24 hr 04/25/24 04:57 WBC 9.4 RBC 4.34 Hgb 13.0 Hct 40.1 MCV 92.4 MCH 30.0 MCHC 32.4 RDW Std Deviation 44.0 H RDW Coeff of Danelle 12.8 Plt Count 231 MPV 10.3 Immature Gran % (Auto) 0.400 Neut % (Auto) 79.2 H Lymph % (Auto) 13.2 L Gordon % (Auto) 5.0 Eos % (Auto) 1.6 Baso % (Auto) 0.6 Absolute Neuts (auto) 7.5 Absolute Lymphs (auto) 1.24 Nucleated RBC % 0 Sodium 138 Potassium 4.1 Chloride 111 H Carbon Dioxide 22.0 Anion Gap 5 BUN 34 H Creatinine 1.39 H Estim Creat Clear Calc 31.37 Est GFR (MDRD) Af Amer 46 L Est GFR (MDRD) Non-Af 38 L BUN/Creatinine Ratio 24.5 H Glucose 134 H Calcium 8.4 L Total Bilirubin 0.30 Direct Bilirubin < 0.05 AST 18 ALT 21 Alkaline Phosphatase 76 Troponin I High Sens 39 B-Natriuretic Peptide 228.3 H Total Protein 6.6 Albumin 3.2 Globulin 3.4 Radiography Diagnostic Testing: Clinical Impression(s) from Imaging Studies Chest X-Ray 04/25/24 05:10 IMPRESSION: CHF changes. Electronically Signed: Wayne Zhou MD at 5:44 EST , EKG Initial EKG: Attestation: I personally reviewed and interpreted this EKG as follows: Comments: Normal sinus rhythm ventricular rate of 87 bpm Management Discussion w/another healthcare provider: Hospitalist (Dr. Peguero) Discharge Plan Dx/Rx/DC Orders Clinical Impression: CHF (congestive heart failure), Arteriosclerotic coronary artery disease, Hypoxemia, CKD (chronic kidney disease), stage III Disposition Disposition: Acute Care Hospital [facility]
--- NOTE | 2024-04-25 05:10 | RAD_ITS ---
EXAM: XR CHEST, 1 VIEW CLINICAL INDICATION: chf TECHNIQUE: Frontal view of the chest. COMPARISON: Single view chest 08/13/2023 FINDINGS: LUNGS AND PLEURAL SPACES: Central pulmonary vascular congestion and diffuse pulmonary edema with small pleural effusions. No pneumothorax. HEART: Mild enlargement of the cardiac silhouette. MEDIASTINUM: Central airways and mediastinal contour are unremarkable. BONES/JOINTS: Unremarkable. No acute fracture. SOFT TISSUES: Unremarkable. RAD/Chest 1 View (Portable) IMPRESSION: CHF changes. Electronically Signed: Wayne Zhou MD at 5:44 EST ,
--- NOTE | 2024-04-25 05:10 | RAD_ITS ---
EXAM: XR CHEST, 1 VIEW CLINICAL INDICATION: chf TECHNIQUE: Frontal view of the chest. COMPARISON: Single view chest 08/13/2023 FINDINGS: LUNGS AND PLEURAL SPACES: Central pulmonary vascular congestion and diffuse pulmonary edema with small pleural effusions. No pneumothorax. HEART: Mild enlargement of the cardiac silhouette. MEDIASTINUM: Central airways and mediastinal contour are unremarkable. BONES/JOINTS: Unremarkable. No acute fracture. SOFT TISSUES: Unremarkable. RAD/Chest 1 View (Portable) IMPRESSION: CHF changes. Electronically Signed: Wayne Zhou MD at 5:44 EST ,
[2024-04-25 05:36] LABS: BNP,B-Type NATRIURETIC PEPTIDE 228.3 pg/mL (0-100)
[2024-04-25 05:42] LABS: AST(SGOT) 18 U/L (15-37); Alanine Aminotransfer ALT/SGPT 21 U/L (13-56); Albumin, Serum 3.2 g/dL (3.2-5.0); Alkaline Phosphatase 76 U/L (45-117); Anion Gap 5 (5-15); BUN 34 mg/dL (7-18); BUN/Creat Ratio 24.5 RATIO (10-20); Bilirubin, Direct < 0.05 mg/dL (0.00-0.30); Calcium,Total 8.4 mg/dL (8.5-10.1); Chloride 111 mmol/L (98-107); Creatinine, Serum 1.39 mg/dL (0.55-1.02); EST Glomerular Filtration Rate 38 mL/min (>60); Est Glom Filt Rate - Afr Amer 46 mL/min (>60); Estimated Creatinine Clearance 31.37 ml/min; Globulin 3.4 g/dL (2.2-4.2); Glucose 134 mg/dL (74-106); Potassium 4.1 mmol/L (3.5-5.1); Protein, Total 6.6 g/dL (6.4-8.2); Sodium Level 138 mmol/L (136-145); Troponin-I HS 39 pg/mL (3.0-54.0)
--- NOTE | 2024-04-25 06:13 | HP.PCM.HOS_ITS ---
HPI - General HPI Narrative ANDREW MOMIN, is a 88 F who presents to the hospital with increasing shortness of breath. She has a history of chronic diastolic CHF and was found to have an elevated BNP to 228. In the ER she had a chest x-ray which demonstrated volume overload and she was given a dose of IV Lasix. She is currently requiring 3 L nasal cannula while at rest as she was hypoxic down to 83% on room air. Her last echo was in July 2023 with an EF of 50% and stage I diastolic dysfunction. she had had a cardiac catheterization in February 2023 with WILY placed to proximal LAD. She did have a troponin drawn which was 39 and her renal function appears to be at baseline with a creatinine of 1.39. [facility] Medical History (HFpEF) heart failure with preserved ejection fraction Arteriosclerotic coronary artery disease Mitral regurgitation Non-smoker Myocardial infarct Hypertension Obesity Anxiety and depression CKD (chronic kidney disease), stage III Hypothyroidism HLD (hyperlipidemia) CHF (congestive heart failure) Home Medications ?Medication ?Instructions ?Recorded ?Last Taken ?Type paroxetine HCl 40 mg tablet 40 mg PO DAILY mental health 08/11/22 02/27/23 History aspirin 81 mg tablet,delayed 81 mg PO BREAKFAST heart health 08/13/22 02/28/23 Rx release #30 tabs levothyroxine 88 mcg tablet 88 mcg PO DAILY thyroid 08/22/22 02/27/23 History rosuvastatin 40 mg tablet 40 mg PO DAILY 06/24/23 Unknown History losartan 25 mg tablet 25 mg PO DAILY #90 tabs 07/01/23 Unknown Rx furosemide 40 mg tablet 40 mg PO DAILY diuretic #90 tabs 08/12/23 Unknown Rx spironolactone 25 mg tablet See Rx Instructions .Route 08/12/23 Unknown Rx .COMPLEX #45 tabs clopidogrel 75 mg tablet 75 mg PO DAILY #90 tabs 02/12/24 Unknown Rx metoprolol tartrate 25 mg tablet 25 mg PO BID #180 tabs 03/29/24 Unknown Rx Allergy/AdvReac Type Severity Reaction Status Date / Time amlodipine Allergy Unknown PT UNSURE Verified 04/25/24 05:05 OF REACTION lisinopril AdvReac Intermediate Dry, Verified 01/09/24 08:56 hacking, constant cough atenolol AdvReac Abd Verified 01/09/24 08:56 cramps/diarrhea Family History Mother Heart disease Hypertension CHF (congestive heart failure) Father Heart disease Hypertension CHF (congestive heart failure) CAD (coronary artery disease) Myocardial infarction Surgical History Stented coronary artery (03/03/23) History of carpal tunnel release History of tonsillectomy and adenoidectomy Social History household members: none Smoking Status: Never smoker alcohol intake: never substance use type: does not use ROS Constitutional Constitutional: Denies chills, fatigue, fever(s) or malaise Eyes Eyes: Denies blurry vision ENT HEENT: Denies headache(s) or nasal discharge Cardiovascular Cardiovascular: Denies chest pain, dyspnea on exertion or syncope Respiratory/Chest Respiratory/Chest: Reports shortness of breath at rest; Denies cough or shortness of breath with exertion Gastrointestinal Gastrointestinal: Denies constipation, diarrhea, nausea or vomiting Genitourinary Genitourinary: Denies dysuria Neurologic Neurologic: Denies focal weakness, numbness or tremor(s) Psychiatric Psychiatric: Denies anxiety or depression Vital Signs Vital Signs Vital Signs: 04/25/24 04:08 04/25/24 04:09 04/25/24 04:13 Temperature 98.1 F Temperature Source Oral Pulse Rate 101 H Respiratory Rate 27 H Respiratory Effort Normal Non-Labored Respiratory Depth Shallow Respiratory Pattern Tachypnea Blood Pressure 172/73 H Blood Pressure Mean 106 Pulse Ox 91 83 Oxygen Delivery Method Nasal Cannula Room Air Nasal Cannula Oxygen Flow Rate (L/min) 4 Fraction of Inspired Oxygen (FIO2) 4 04/25/24 04:58 Temperature Temperature Source Pulse Rate Respiratory Rate Respiratory Effort Respiratory Depth Respiratory Pattern Blood Pressure Blood Pressure Mean Pulse Ox Oxygen Delivery Method Nasal Cannula Oxygen Flow Rate (L/min) 3 Fraction of Inspired Oxygen (FIO2) 93 Weight Weight: 218 lb 4.122 oz Body Mass Index (BMI) 38.6 Physical Exam Narrative general: Alert, Oriented x3, Cooperative, No apparent distress HEENT: Atraumatic, PERRLA, EOMI, Normocephalic Oral: Moist Mucosa Neck: Supple, No JVD Lungs: Diminished auscultation, Normal air movement, No rhonchi, scattered wheeze, no rales Cardiovascular: Regular rate, Regular Rhythm, Normal S1, Normal S2, No murmurs Abdomen: Soft, Non Tender, Non-Distended, No Hepato-splenomegaly Extremities: Edema, Capillary Refill Less than 3 Seconds Skin: No rashes, No breakdown Musculoskeletal: No Tenderness to Palpation of Joints or Extremities Neurological: No focal neurological deficits, Motor Exam 5/5 strength throughout, Sensory exam intact to light touch and pain Psych/Mental Status: Normal Affect, Appropriate Results Lab / Micro Data 04/25/24 04:57 04/25/24 04:57 Labs: Laboratory Results - last 24 hr 04/25/24 04:57: WBC 9.4, RBC 4.34, Hgb 13.0, Hct 40.1, MCV 92.4, MCH 30.0, MCHC 32.4, RDW Std Deviation 44.0 H, RDW Coeff of Danelle 12.8, Plt Count 231, MPV 10.3, Immature Gran % (Auto) 0.400, Neut % (Auto) 79.2 H, Lymph % (Auto) 13.2 L, [place] % (Auto) 5.0, Eos % (Auto) 1.6, Baso % (Auto) 0.6, Absolute Neuts (auto) 7.5, Absolute Lymphs (auto) 1.24, Nucleated RBC % 0, Sodium 138, Potassium 4.1, C hloride 111 H, Carbon Dioxide 22.0, Anion Gap 5, BUN 34 H, Creatinine 1.39 H, Estim Creat Clear Calc 31.37, Est GFR (MDRD) Af Amer 46 L, Est GFR (MDRD) Non-Af 38 L, BUN/Creatinine Ratio 24.5 H, Glucose 134 H, Calcium 8.4 L, Total Bilirubin 0.30, Direct Bilirubin < 0.05, AST 18, ALT 21, Alkaline Phosphatase 76, Troponin I High Sens 39, B-Natriuretic Peptide 228.3 H, Total Protein 6.6, Albumin 3.2, Globulin 3.4 Imaging Radiology Impression Chest X-Ray 04/25/24 05:10 IMPRESSION: CHF changes. Electronically Signed: Wayne Zhou MD at 5:44 EST , Assessment & Plan Assessment/Plan (1) CHF (congestive heart failure): PLAN: Plan 1. Acute on chronic diastolic CHF/essential HTN/CAD status post stent ? Blood pressures are stable ? Continue with 40 mg twice daily of IV Lasix ? Resume her home blood pressure medications ? Continue with her aspirin and Plavix ? Continue with her Crestor ? Echo in July 2023 with an EF of 50% stage I diastolic dysfunction no plans to repeat echo 2. Hypothyroidism ? Stable ? Continue with Synthroid 3. Anxiety/depression ? Stable ? Continue with her home Paxil 4. CKD 3 ? Creatinine is at baseline ? Will monitor DVT: Lovenox Charges/Coding Visit Charges Inpatient E&M: 87982 Init Hosp L2
[2024-04-25] MEDS: Furosemide 100 MG/10 ML Vial 80 MG IV (07:18)
--- NOTE | 2024-04-25 10:49 | PCM.HOSP.N ---
Hospitalist Note Patient admitted earlier this morning for worsening shortness of breath presumed secondary to heart failure exacerbation. I saw the patient at bedside midmorning. Patient was sitting up comfortably in bed and breathing comfortably on room air at rest. She was conversing normally and in no acute distress. She reported good urine output with doses of IV Lasix thus far. Had not got out of bed yet since arrival to the floor. Does not wear any oxygen at home. Noted that we will continue IV diuresis today and see how patient is doing tomorrow. Patient is hopeful that she may be able to be discharged home tomorrow or Friday. Full progress note to follow tomorrow.
[2024-04-25] MEDS: Aspirin E.C. 81 MG Tablet PO (11:33)
[2024-04-25] MEDS: Furosemide 40 MG/4 ML Vial IV ×2 (11:33→18:38)
[2024-04-25] MEDS: Metoprolol Tartrate 25 MG Tablet PO ×2 (11:34→21:10)
[2024-04-25] MEDS: Atorvastatin Calcium 80 MG Tablet PO (11:34)
[2024-04-25] MEDS: Paroxetine 20 MG Tablet 40 MG PO (11:35)
[2024-04-25] MEDS: Enoxaparin 40 MG/0.4 ML Syringe SC (11:35)
[2024-04-25] MEDS: Clopidogrel Bisulfate 75 MG Tablet PO (11:35)
[2024-04-25] MEDS: Levothyroxine 88 MCG Tablet PO (11:36)
[2024-04-25] MEDS: 0.9% Saline Lock 10 ML Syringe IV (11:38)
[2024-04-26 05:00] VITALS: BP 138/63; PULSE 78; RESP 16; TEMP 36.2; O2SAT 94
[2024-04-26 05:17] VITALS: BMI 38.8
[2024-04-26] MEDS: Levothyroxine 88 MCG Tablet PO (05:18)
[2024-04-26 06:34] VITALS: BMI 38.8
[2024-04-26 07:07] LABS: Absolute Lymphocyte Count 2.69 X10^3/uL (0.83-4.51); Basophil# 0.05 X10^3/uL; Basophil% 0.8 % (0-1); Eosinophil# 0.22 X10^3/uL; Eosinophils% 3.3 % (0-5); Hematocrit 36.5 % (37-47); Lymphocyte # 2.69 X10^3/ul (0.83-4.51); Lymphocyte % 40.6 % (19-41); Mean Corp Hgb Conc 32.9 g/dL (32-36); Mean Corpuscular Hgb 29.7 pg (27.0-32.0); Mean Corpuscular Volume 90.3 fL (81-99); Mean Platelet Vol. 10.6 fl (6.2-12.0); Monocyte# 0.66 X10^3/uL; NRBC Flagged by Analyzer 0 % (0-5); Neutrophil # 2.99 X10^3/uL (2.7-7.7); Neutrophil % 45.1 % (47-70); Platelet Count 215 K/mm3 (150-450); RBC Distribution Width SD 43.3 fl (35.1-43.9); Red Blood Count 4.04 M/mm3 (4.2-5.4); White Blood Count 6.6 K/mm3 (4.4-11.0)
[2024-04-26 07:39] VITALS: O2SAT 94
[2024-04-26 07:41] LABS: Anion Gap 8 (5-15); BUN 33 mg/dL (7-18); BUN/Creat Ratio 28.2 RATIO (10-20); Calcium,Total 8.2 mg/dL (8.5-10.1); Chloride 108 mmol/L (98-107); Creatinine, Serum 1.17 mg/dL (0.55-1.02); EST Glomerular Filtration Rate 46 mL/min (>60); Est Glom Filt Rate - Afr Amer 56 mL/min (>60); Estimated Creatinine Clearance 37.38 ml/min; Glucose 123 mg/dL (74-106); Potassium 3.2 mmol/L (3.5-5.1); Sodium Level 140 mmol/L (136-145)
[2024-04-26 08:10] VITALS: BP 142/71; PULSE 76; RESP 18; TEMP 36.7; O2SAT 96
[2024-04-26 09:16] VITALS: PULSE 76
[2024-04-26] MEDS: Metoprolol Tartrate 25 MG Tablet PO (09:16)
[2024-04-26] MEDS: Clopidogrel Bisulfate 75 MG Tablet PO (09:17)
[2024-04-26] MEDS: Aspirin E.C. 81 MG Tablet PO (09:17)
[2024-04-26] MEDS: Paroxetine 20 MG Tablet 40 MG PO (09:17)
[2024-04-26] MEDS: Furosemide 40 MG/4 ML Vial IV (09:17)
--- NOTE | 2024-04-26 09:59 | VDLE_ITS ---
Reason For Study: LLE Pain RIGHT LEFT GSV is normal. GSV is normal. CFV is compressible, spontaneous, phasic, CFV is compressible, spontaneous, phasic, competent and demonstrates normal competent, and demonstrates normal augmentation. augmentation. FV is compressible, spontaneous, phasic, FV is compressible, spontaneous, phasic, competent and demonstrates normal competent and demonstrates normal augmentation. augmentation. POP V is compressible, spontaneous, phasic, POP V is compressible, spontaneous, phasic, competent and demonstrates normal competent and demonstrates normal augmentation. augmentation. T/P Trunk is compressible. T/P Trunk is compressible. PTV is compressible. PTV is compressible. RT PerV is compressible. LT PerV is compressible. Procedure This is a venous duplex using B-mode, color flow and spectral Doppler. Exam performed in department. The exam was diagnostic. A preliminary report was called and/or faxed to [facility]. VL/Venous Duplex US - Pedro Extrem Interpretation Summary Deep veins of the lower extremities are bilaterally patent and compressible seg mentally. There is no evidence of deep vein thrombosis on either side. Valvular competence appears in tact within the proximal deep venous systems bilaterally. The great saphenous veins appear bila terally patent and compressible segmentally. Ordering Physician: Tien Varma Referring Physician: Mack Jeffers Performed By: Robby Lewis RVT
--- NOTE | 2024-04-26 09:59 | VDLE_ITS ---
Reason For Study: LLE Pain RIGHT LEFT GSV is normal. GSV is normal. CFV is compressible, spontaneous, phasic, CFV is compressible, spontaneous, phasic, competent and demonstrates normal competent, and demonstrates normal augmentation. augmentation. FV is compressible, spontaneous, phasic, FV is compressible, spontaneous, phasic, competent and demonstrates normal competent and demonstrates normal augmentation. augmentation. POP V is compressible, spontaneous, phasic, POP V is compressible, spontaneous, phasic, competent and demonstrates normal competent and demonstrates normal augmentation. augmentation. T/P Trunk is compressible. T/P Trunk is compressible. PTV is compressible. PTV is compressible. RT PerV is compressible. LT PerV is compressible. Procedure This is a venous duplex using B-mode, color flow and spectral Doppler. Exam performed in department. The exam was diagnostic. A preliminary report was called and/or faxed to [facility]. VL/Venous Duplex US - Pedro Extrem Interpretation Summary Deep veins of the lower extremities are bilaterally patent and compressible seg mentally. There is no evidence of deep vein thrombosis on either side. Valvular competence appears in tact within the proximal deep venous systems bilaterally. The great saphenous veins appear bila terally patent and compressible segmentally. Ordering Physician: Tien Varma Referring Physician: Mack Jeffers Performed By: Robby Lewis RVT
--- NOTE | 2024-04-26 10:01 | PCM.PN.HOSP ---
Reason for Visit Reason for Visit: Diagnoses Heart failure, unspecified (04/25/24) Objective Data Objective Data Vital Signs: Vital Signs Temp Pulse Resp BP Pulse Ox O2 Del Method O2 Flow Rate 98.1 F 76 18 142/71 H 96 Room Air 2 04/26/24 08:10 04/26/24 09:16 04/26/24 08:10 04/26/24 08:10 04/26/24 08:10 04/26/24 08:13 04/25/24 06:08 FiO2 93 04/25/24 04:58 Oxygen Flow Rate (L/min) 2 Oxygen Delivery Method Room Air Weight: 219 lb 5.759 oz Body Mass Index (BMI) 38.8 Intake & Output: Intake and Output for Last 24 Hours 04/24/24 04/25/24 04/26/24 23:59 23:59 23:59 Intake Total 120 / 120 Output Total 1400 / 1400 1000 / 1000 Balance -1400 / -1400 -880 / -880 Lab / Micro Data 04/26/24 06:23 04/26/24 06:23 Labs: Laboratory Results - last 24 hr 04/26/24 06:23: WBC 6.6, RBC 4.04 L, Hgb 12.0, Hct 36.5 L, MCV 90.3, MCH 29.7, MCHC 32.9, RDW Std Deviation 43.3, RDW Coeff of Danelle 13.0, Plt Count 215, MPV 10.6, Immature Gran % (Auto) 0.200, Neut % (Auto) 45.1 L, Lymph % (Auto) 40.6, [place] % (Auto) 10.0, Eos % (Auto) 3.3, Baso % (Auto) 0.8, Absolute Neuts (auto) 3.0, Absolute Lymphs (auto) 2.69, Nucleated RBC % 0, Sodium 140, Potassium 3.2 L, Chloride 108 H, Carbon Dioxide 25.0, Anion Gap 8, BUN 33 H, Creatinine 1.17 H, Estim Creat Clear Calc 37.38, Est GFR (MDRD) Af Amer 56 L, Est GFR (MDRD) Non-Af 46 L, BUN/Creatinine Ratio 28.2 H, Glucose 123 H, Calcium 8.2 L Physical Exam Narrative Patient admitted with heart failure exacerbation. Complained of right knee, medial tibial tuberosity pain for 1 week, started to spontaneously when she woke up. No history of injury or trauma or fall. Physical exam General: Alert, Oriented x3, Cooperative HEENT: Atraumatic, PERRLA, EOMI, Normocephalic Oral: No Gingival or Mucosal Lesions/ Ulcerations Neck: Supple, No JVD, Negative Carotid Bruits Chest wall/Lungs: Air entry diminished in bilateral lung bases. No crepitation/rhonchi Cardiovascular: Regular rate, Regular Rhythm, heart sounds low intensity. No M/G/R Abdomen: Bowel Sounds Present, Soft, Non Tender, Non-Distended : No dysuria. No renal angle tenderness. No suprapubic tenderness. Extremities: No edema, Capillary Refill Less than 3 Seconds Skin: No rashes, No breakdown Musculoskeletal: No Tenderness to Palpation of Joints or Extremities Neurological: Cranial nerves II-XII grossly intact, DTR 2+/4. No acute focal neurological deficit. Psych/Mental Status: Normal Affect, Appropriate.
--- NOTE | 2024-04-26 10:05 | RAD_ITS ---
HISTORY: right medial upper tibial pain. TECHNIQUE: XR Knee 3 Views. COMPARISON: None. FINDINGS: BONES : No acute fracture identified. Mineralization unremarkable. JOINTS: No dislocation. Mild degenerative change. Trace joint effusion. RAD/Knee 3 Views IMPRESSION: No acute fracture or dislocation identified in the right knee. Electronically Signed: Joie Salmon MD at 14:34 EST ,
--- NOTE | 2024-04-26 10:05 | RAD_ITS ---
HISTORY: right medial upper tibial pain. TECHNIQUE: XR Knee 3 Views. COMPARISON: None. FINDINGS: BONES : No acute fracture identified. Mineralization unremarkable. JOINTS: No dislocation. Mild degenerative change. Trace joint effusion. RAD/Knee 3 Views IMPRESSION: No acute fracture or dislocation identified in the right knee. Electronically Signed: Joie Salmon MD at 14:34 EST ,
--- NOTE | 2024-04-26 11:03 | DCINST_ITS ---
Discharge Instructions DC O2, CPAP, BIPAP needs RN Home O2 Qualification: Home O2 Qualification: Is the patient on home oxygen No 04/26/24 11:06 Home O2 Qualification: AT REST 1- Pulse Ox at rest 97 04/26/24 11:06 Home O2 Qualification: WITH AMBULATION 1- Pulse Ox with ambulation 91 04/26/24 11:06 1- Oxygen Flow Rate with 0 04/26/24 11:06 ambulation PSN CPAP & BiPAP: BiPAP & CPAP Settings per PSN Fraction of Inspired Oxygen ( 93 04/25/24 04:58 FIO2) Home O2 Discharge instructions: No Follow Up Care Test Results: Test results from this visit will be discussed in further detail at your follow- up appointment, if applicable. Discharge Plan Admission Admit Date/Time: 04/25/24 06:31 Primary Reason for Your Visit: CHF exacerbation, right medial knee, upper tibia pain. Attending Provider: Tien Varma Primary Care Provider: Neville Serrano [employer] Providers: Jeovanny Bal; Antwon Peguero; Art Muro Instructions Additional Instructions / Restrictions: Hold spironolactone and losartan for hyperkalemia, serum potassium more than 5.1. Follow-up labs in 1 week with PCP. Discharge Orders/Prescriptions Prescriptions: New spironolactone 50 mg tablet 50 mg PO DAILY 30 Days Qty: 30 2RF Rx Instructions: Hold for serum potassium more than 5.0 magnesium oxide 400 mg magnesium tablet 400 mg PO DAILY 30 Days Qty: 30 0RF Continued levothyroxine 88 mcg tablet 88 mcg PO DAILY rosuvastatin 40 mg tablet 40 mg PO DAILY paroxetine HCl 40 mg tablet 40 mg PO DAILY aspirin 81 mg Tablet,Delayed Release (Dr/Ec) 81 mg PO BREAKFAST Qty: 30 2RF losartan 25 mg tablet 25 mg PO DAILY Qty: 90 3RF clopidogrel 75 mg tablet 75 mg PO DAILY Qty: 90 3RF metoprolol tartrate 25 mg tablet 25 mg PO BID Qty: 180 3RF Changed furosemide 40 mg tablet 40 mg PO BIDCM 30 Days Qty: 90 3RF Discontinued spironolactone 25 mg tablet See Rx Instructions .ROUTE .COMPLEX Qty: 45 3RF Dose Instruction: TAKE ONE-HALF TABLET(12.5 MG) ORALLY DAILY Rx Instructions: TAKE ONE-HALF TABLET(12.5 MG) ORALLY DAILY Referrals / Follow Up: Jeovanny Bal MD [Med Staff - Active Staff] - Within 1 Month Neville Serrano Chi, MD [Primary Care Provider] - Within 1 Week Disposition Disposition (needs filled in before D/C Order can be placed): Home, Self Care
[2024-04-26 11:06] VITALS: O2SAT 91; O2SAT 97
--- NOTE | 2024-04-26 12:59 | CASEMGMT ---
OSMEL CARVALHO Assessment Face to Face with patient for initial transition planning/care coordination assessment. OSMEL CARVALHO introduced self and role at [facility], pt voices understanding. Pt is A&Ox4 and is resting comfortably in bed and is calm. Care providers, pharmacy, and demographics verified. Admitting dx: CHF LACE Strata: 2 PCP: Zach Specialists: JACE Preferred Pharmacy: [facility] Insurance: [facility] A/B, AARP Prescription Benefit: Yes LNOK: Sarah Genao ([facility]) Living Arrangements: Pt lives alone in a [place] with a FFSU on the ground level with a flat entrance. ADLs/IADLs: Ind Transportation: Self, daughter DME: Denies all DME uses or needs HHC/SNF: Denies history or needs Pt?s goal: Return home Plan: Home no needs. 6-click is 24. Pt denies the need for HH, OP Tx, or CCN. Pt states that she feels safe returning home alone once medically ready and denies further questions or concerns. Yvonne Genao RN, CM
--- NOTE | 2024-04-26 12:59 | CASEMGMT ---
OSMEL CARVALHO Assessment Face to Face with patient for initial transition planning/care coordination assessment. OSMEL CARVALHO introduced self and role at [facility], pt voices understanding. Pt is A&Ox4 and is resting comfortably in bed and is calm. Care providers, pharmacy, and demographics verified. Admitting dx: CHF LACE Strata: 2 PCP: Zach Specialists: JACE [facility] Insurance: [facility] A/B, AARP Prescription Benefit: Yes LNOK: Sarah Genao ([facility]) Living Arrangements: Pt lives alone in a raised ranch with a FFSU on the ground level with a flat entrance. ADLs/IADLs: Ind Transportation: Self, daughter DME: Denies all DME uses or needs HHC/SNF: Denies history or needs Pt?s goal: Return home Plan: Home no needs. 6-click is 24. Pt denies the need for HH, OP Tx, or CCN. Pt states that she feels safe returning home alone once medically ready and denies further questions or concerns. Yvonne Genao RN, CM
[2024-04-26 13:00] VITALS: BP 130/79; PULSE 77; RESP 18; TEMP 36.7; O2SAT 97
--- NOTE | 2024-04-26 14:04 | DS.PCM_ITS ---
Providers Date of Admission: 04/25/24 Date of Discharge: 04/26/24 Primary Care Physician: Dr. Neville Serrano MD Reason For Visit: CHF Diagnosis Discharge Diagnosis (1) CHF (congestive heart failure): Status: Acute Code(s): I50.9 - Heart failure, unspecified Plan Patient was admitted for worsening shortness of breath due to heart failure exacerbation. No chest pain pressure or tightness. 1. Acute on chronic diastolic CHF/essential HTN/CAD status post stent: BNP was elevated 228. Chest x-ray shows central pulmonary vascular congestion and diffuse pulmonary edema and small pleural effusion consistent with CHF exacerbation. Patient was admitted to PCU. Heart failure core measures including intake and output, fluid restriction less than 1500 mL, daily weight monitoring, kidney and electrolytes monitoring. Started on Lasix 40 mg IV twice daily. Shortness of breath much improved. ? Continue with her aspirin and Plavix ? Continue with her Crestor ? Echo in July 2023 with an EF of 50% stage I diastolic dysfunction no plans to repeat echo 04/26: Patient discharged on furosemide 40 mg oral twice daily. Spironolactone dose increased to 50 mg daily. Advised follow-up in [place] cardiology with Dr. Bal. 2. Hypothyroidism ? Stable ? Continue with Synthroid 3. Anxiety/depression ? Stable ? Continue with her home Paxil 4. CKD 3 A ? Creatinine is at baseline. Creatinine improved from 1.39-1.17. Mild hypokalemia 3.2. His spironolactone dose increased as mentioned above ? Advised follow-up BMP in 1 week with PCP. 5. Left knee upper medial tibial plateau pain. Knee x-ray was done and individually reviewed. Does not show acute fracture. Joint space within limit. Ultrasound preliminary report was no DVT. Patient walked with nursing staff in the hallway without risk of fall or acute issues. Most likely might be Pes anserinus tendinitis or burisits. Advised [id number] Motrin 400 mg 3 times daily as needed for severe pain. Follow-up orthopedic surgeon in 2 weeks. DVT: Lovenox Discharge medication reconciliation done. Discharge follow-up instructions completed. Discharge process discussed with the patient and all questions were answered to patient's satisfaction. Follow with PCP in 1 to 2 weeks Total time spent, exact 35 minutes on discharge meds reconciliation, examination, coordination of care with nurses and ancillary staff, review of imaging and blood test and discussion with the patient on follow-up instructions. Medications at Discharge Home Medications paroxetine HCl 40 mg tablet 40 mg PO DAILY mental health 08/11/22 aspirin 81 mg tablet,delayed release 81 mg PO BREAKFAST heart health #30 tabs 08/13/22 levothyroxine 88 mcg tablet 88 mcg PO DAILY thyroid 08/22/22 rosuvastatin 40 mg tablet 40 mg PO DAILY 06/24/23 losartan 25 mg tablet 25 mg PO DAILY #90 tabs 07/01/23 clopidogrel 75 mg tablet 75 mg PO DAILY #90 tabs 02/12/24 metoprolol tartrate 25 mg tablet 25 mg PO BID #180 tabs 03/29/24 furosemide 40 mg tablet 40 mg PO BIDCM diuretic 30 days #90 tabs 04/26/24 magnesium oxide 400 mg PO DAILY 1 month #30 tabs 04/26/24 spironolactone 50 mg tablet 50 mg PO DAILY 1 month #30 tabs 04/26/24 Physical Exam Narrative Patient admitted with heart failure exacerbation. Complained of right knee, medial tibial tuberosity pain for 1 week, started to spontaneously when she woke up. No history of injury or trauma or fall. Patient walked around the nursing station with the patient's nurse supervision and no complaint. Physical exam General: Alert, Oriented x3, Cooperative HEENT: Atraumatic, PERRLA, EOMI, Normocephalic Oral: No Gingival or Mucosal Lesions/ Ulcerations Neck: Supple, No JVD, Negative Carotid Bruits Chest wall/Lungs: Air entry diminished in bilateral lung bases. No crepitation/rhonchi Cardiovascular: Regular rate, Regular Rhythm, heart sounds low intensity. No M/G/R Abdomen: Bowel Sounds Present, Soft, Non Tender, Non-Distended : No dysuria. No renal angle tenderness. No suprapubic tenderness. Extremities: No edema, Capillary Refill Less than 3 Seconds Skin: No rashes, No breakdown Musculoskeletal: Mild tenderness over right upper medial knee/tibial tuberosity more on valgus and Cheryl's test.. ROM maintained. Neurological: Cranial nerves II-XII grossly intact, DTR 2+/4. No acute focal neurological deficit. Psych/Mental Status: Normal Affect, Appropriate. Weight / BMI Weight Weight: 219 lb 5.759 oz Body Mass Index (BMI) 38.8 ABG / Lab / Microbiology Data 04/26/24 06:23 04/26/24 06:23 Laboratory: Laboratory Results - last 24 hr 04/26/24 06:23: WBC 6.6, RBC 4.04 L, Hgb 12.0, Hct 36.5 L, MCV 90.3, MCH 29.7, MCHC 32.9, RDW Std Deviation 43.3, RDW Coeff of Danelle 13.0, Plt Count 215, MPV 10.6, Immature Gran % (Auto) 0.200, Neut % (Auto) 45.1 L, Lymph % (Auto) 40.6, [place] % (Auto) 10.0, Eos % (Auto) 3.3, Baso % (Auto) 0.8, Absolute Neuts (auto) 3.0, Absolute Lymphs (auto) 2.69, Nucleated RBC % 0, Sodium 140, Potassium 3.2 L , Chloride 108 H, Carbon Dioxide 25.0, Anion Gap 8, BUN 33 H, Creatinine 1.17 H, Estim Creat Clear Calc 37.38, Est GFR (MDRD) Af Amer 56 L, Est GFR (MDRD) Non-Af 46 L, BUN/Creatinine Ratio 28.2 H, Glucose 123 H, Calcium 8.2 L D/C Instructions DC O2, CPAP, BIPAP Needs RN Home O2 Qualification: Home O2 Qualification: Is the patient on home oxygen No 04/26/24 11:06 Home O2 Qualification: AT REST 1- Pulse Ox at rest 97 04/26/24 11:06 Home O2 Qualification: WITH AMBULATION 1- Pulse Ox with ambulation 91 04/26/24 11:06 1- Oxygen Flow Rate with 0 04/26/24 11:06 ambulation PSN CPAP & BiPAP: BiPAP & CPAP Settings per PSN Fraction of Inspired Oxygen ( 93 04/25/24 04:58 FIO2) Home O2 Discharge instructions: No Meaningful Use Info Meaningful Use Meaningful Use Diagnoses (Choose all that apply): None applicable Ischemic Stroke Statin Dosing Therapy Reference: STATIN DOSE THERAPY REFERENCE: * Patients > 75 years receive moderate or high dose statin therapy. * Patients 75 years or YOUNGER should receive HIGH intensity statin dose unless contraindicated. You will be required to document reason for non-treatment if statin daily dose does not meet guidelines. HIGH DOSE STATIN THERAPY DAILY Atorvastatin > than or = to 40 mg Rosuvastatin > than or = to 20 mg Amlodipine + Atorvastatin > than or = to 2.5/40 mg Ezetimibe + Simvastatin 10/80 mg Simvastatin 80mg Discharge Plan Admission Admit Date/Time: 04/25/24 06:31 Primary Reason for Your Visit: CHF exacerbation, right medial knee, upper tibia pain. Attending Provider: Tien Varma Primary Care Provider: Neville Serrano [employer] Consult[employer] Providers: Jeovanny Bal; Antwon Peguero; Art Muro Instructions Additional Instructions / Restrictions: Hold spironolactone and losartan for hyperkalemia, serum potassium more than 5.1. Follow-up labs in 1 week with PCP. Complain of right knee upper pain on the medial side. Follow-up with orthopedic. Discharge Orders/Prescriptions Prescriptions: New spironolactone 50 mg tablet 50 mg PO DAILY 30 Days Qty: 30 2RF Rx Instructions: Hold for serum potassium more than 5.0 magnesium oxide 400 mg magnesium tablet 400 mg PO DAILY 30 Days Qty: 30 0RF Continued levothyroxine 88 mcg tablet 88 mcg PO DAILY rosuvastatin 40 mg tablet 40 mg PO DAILY paroxetine HCl 40 mg tablet 40 mg PO DAILY aspirin 81 mg Tablet,Delayed Release (Dr/Ec) 81 mg PO BREAKFAST Qty: 30 2RF losartan 25 mg tablet 25 mg PO DAILY Qty: 90 3RF clopidogrel 75 mg tablet 75 mg PO DAILY Qty: 90 3RF metoprolol tartrate 25 mg tablet 25 mg PO BID Qty: 180 3RF Changed furosemide 40 mg tablet 40 mg PO BIDCM 30 Days Qty: 90 3RF Discontinued spironolactone 25 mg tablet See Rx Instructions .ROUTE .COMPLEX Qty: 45 3RF Dose Instruction: TAKE ONE-HALF TABLET(12.5 MG) ORALLY DAILY Rx Instructions: TAKE ONE-HALF TABLET(12.5 MG) ORALLY DAILY Referrals / Follow Up: Jeovanny Bal MD [Med Staff - Active Staff] - Within 1 Month Neville Serrano Chi, MD [Primary Care Provider] - Within 1 Week Matthew Coker MD [Med Staff - Active Staff] - Within 2 Weeks Disposition Disposition (needs filled in before D/C Order can be placed): Home, Self Care Charges/Coding Visit Charges Inpatient E&M: 25998 Disch Hosp >30min
--- NOTE | 2024-04-26 15:42 | CHAPLAIN ---
Type of Pastoral Visit _x__ Initial Visit ___ Follow-up Visit ___ On-call Visit ___ General Patient Visit ___ Spiritual Assessment ___ Family Conference ___ Bereavement ___ Rapid Response ___ Code Blue ___ Other (describe below) Pastoral Care Referral From _x__ Patient ___ Family ___ Nurse ___ Physician ___ Acting Section Chief ___ Polisher And Sander ___ Other (describe below) Sacrament/Intervention _x__ Active listening ___ Anointing ___ Buddhist ___ Bereavement ___ Communion ___ Leanna exploration ___ _x__ Life review ___ Prayer ___ Reconciliation ___ Sacrament of Sick ___ Supportive presence ___ Wedding ___ Other (describe below) Pastoral Comments patient states that she is doing fine; pt is asked about receiving support and she says that she just prays myself and I don't go to confucianist anymore since my and my friends there have all ; pt did try to start a political conversation; pt given time to speak her opinions before the visit ended
--- NOTE | 2024-04-26 15:42 | CHAPLAIN ---
Type of Pastoral Visit _x__ Initial Visit ___ Follow-up Visit ___ On-call Visit ___ General Patient Visit ___ Spiritual Assessment ___ Family Conference ___ Bereavement ___ Rapid Response ___ Code Blue ___ Other (describe below) Pastoral Care Referral From _x__ Patient ___ Family ___ Nurse ___ Physician ___ Fur Scraper ___ Radio Equipment Repairer ___ Other (describe below) Sacrament/Intervention _x__ Active listening ___ Anointing ___ Yazdanism ___ Bereavement ___ Communion ___ Leanna exploration ___ _x__ Life review ___ Prayer ___ Reconciliation ___ Sacrament of Sick ___ Supportive presence ___ Wedding ___ Other (describe below) Pastoral Comments patient states that she is doing fine; pt is asked about receiving support and she says that she just prays myself and I don't go to mosque anymore since my and my friends there have all ; pt did try to start a political conversation; pt given time to speak her opinions before the visit ended
== END 2024-04-26 16:50 | disposition home or self-care (01) | DRG 291 ==
LOC: ED 06:10 → PCU 07:02
PROVIDERS: Admitting Provider Family Medicine; Emergency Provider Emergency Medicine; PCP Family Medicine Geriatric Medicine; Referring Provider Family Medicine; Visit Provider Internal Medicine
DX: I13.0 Hypertensive heart and chronic kidney disease with heart failure and stage 1 through stage 4 chronic kidney disease, or unspecified chronic kidney disease (principal); I50.33 Acute on chronic diastolic (congestive) heart failure; E03.9 Hypothyroidism, unspecified; N18.30 Chronic kidney disease, stage 3 unspecified; F32.A Depression, unspecified; E66.9 Obesity, unspecified; I25.10 Atherosclerotic heart disease of native coronary artery without angina pectoris; I25.2 Old myocardial infarction; F41.9 Anxiety disorder, unspecified; E78.5 Hyperlipidemia, unspecified; E87.6 Hypokalemia; M25.561 Pain in right knee; R09.02 Hypoxemia; Z79.82 Long term (current) use of aspirin; Z79.899 Other long term (current) drug therapy; Z79.02 Long term (current) use of antithrombotics/antiplatelets; Z79.890 Hormone replacement therapy; Z95.5 Presence of coronary angioplasty implant and graft; Z68.38 Body mass index [BMI] 38.0-38.9, adult
CPT/HCPCS: 36415; 71045; 73562; 80048; 80076; 83880; 84484; 85025; 93005; 93970; 97162; 99285; A4216; J1940

== ENCOUNTER → 2024-05-04 | Outpatient (CLI) | payer MEDICARE, OTHER, SELFPAY ==
[2024-05-04 14:32] LABS: Anion Gap 8 (5-15); BUN 36 mg/dL (7-18); BUN/Creat Ratio 27.3 RATIO (10-20); Calcium,Total 8.9 mg/dL (8.5-10.1); Chloride 103 mmol/L (98-107); Creatinine, Serum 1.32 mg/dL (0.55-1.02); EST Glomerular Filtration Rate 40 mL/min (>60); Est Glom Filt Rate - Afr Amer 49 mL/min (>60); Glucose 109 mg/dL (74-106); Potassium 4.1 mmol/L (3.5-5.1); Sodium Level 138 mmol/L (136-145)
== END | disposition home or self-care (01) ==
PROVIDERS: PCP Family Medicine Geriatric Medicine; Referring Provider Family Medicine Geriatric Medicine; Visit Provider Family Medicine Geriatric Medicine
DX: I10 Essential (primary) hypertension (principal)
CPT/HCPCS: 36415; 80048

== ENCOUNTER → 2024-06-02 | Outpatient (CLI) | payer MEDICARE, OTHER, SELFPAY ==
[2024-06-02 13:37] LABS: Absolute Lymphocyte Count 2.74 X10^3/uL (0.83-4.51); Absolute Neutrophil Count 4.3 X10^3/uL (2.0-7.7); Basophil# 0.06 X10^3/uL; Basophil% 0.7 % (0-1); Eosinophil# 0.29 X10^3/uL; Eosinophils% 3.6 % (0-5); Hematocrit 39.5 % (37-47); Lymphocyte # 2.74 X10^3/ul (0.83-4.51); Lymphocyte % 33.8 % (19-41); Mean Corp Hgb Conc 32.9 g/dL (32-36); Mean Corpuscular Hgb 29.6 pg (27.0-32.0); Mean Platelet Vol. 10.1 fl (6.2-12.0); Monocyte# 0.72 X10^3/uL; Monocyte% 8.9 % (0-10); NRBC Flagged by Analyzer 0 % (0-5); Neutrophil # 4.27 X10^3/uL (2.7-7.7); Neutrophil % 52.6 % (47-70); Platelet Count 288 K/mm3 (150-450); RBC Distribution Width CV 12.4 % (11.6-14.6); RBC Distribution Width SD 40.8 fl (35.1-43.9); Red Blood Count 4.39 M/mm3 (4.2-5.4); White Blood Count 8.1 K/mm3 (4.4-11.0)
[2024-06-02 14:10] LABS: Vitamin D,25 Hydroxy 24.4 ng/mL
[2024-06-02 14:16] LABS: ALB/GLOB Ratio 0.8 RATIO (0.9-2.4); AST(SGOT) 13 U/L (15-37); Alanine Aminotransfer ALT/SGPT 17 U/L (13-56); Albumin, Serum 3.4 g/dL (3.2-5.0); Alkaline Phosphatase 87 U/L (45-117); Anion Gap 8 (5-15); BUN 32 mg/dL (7-18); BUN/Creat Ratio 21.9 RATIO (10-20); Calcium,Total 9.1 mg/dL (8.5-10.1); Chloride 103 mmol/L (98-107); Creatinine, Serum 1.46 mg/dL (0.55-1.02); EST Glomerular Filtration Rate 36 mL/min (>60); Est Glom Filt Rate - Afr Amer 43 mL/min (>60); Globulin 4.1 g/dL (2.2-4.2); Glucose 113 mg/dL (74-106); Potassium 4.9 mmol/L (3.5-5.1); Protein, Total 7.5 g/dL (6.4-8.2); Sodium Level 137 mmol/L (136-145)
== END | disposition home or self-care (01) ==
LOC: POLAB3 13:21
PROVIDERS: PCP Family Medicine Geriatric Medicine; Visit Provider Family Medicine Geriatric Medicine
DX: I10 Essential (primary) hypertension (principal); E55.9 Vitamin D deficiency, unspecified
CPT/HCPCS: 36415; 80053; 82306; 84443; 85025

== ENCOUNTER → 2024-06-15 | Outpatient (CLI) | payer MEDICARE, OTHER, SELFPAY ==
[2024-06-15 15:44] LABS: Anion Gap 13 (5-15); BUN 42 mg/dL (7-18); BUN/Creat Ratio 23.7 RATIO (10-20); Calcium,Total 9.5 mg/dL (8.5-10.1); Chloride 102 mmol/L (98-107); Creatinine, Serum 1.77 mg/dL (0.55-1.02); EST Glomerular Filtration Rate 29 mL/min (>60); Est Glom Filt Rate - Afr Amer 35 mL/min (>60); Glucose 119 mg/dL (74-106); Potassium 4.8 mmol/L (3.5-5.1); Sodium Level 136 mmol/L (136-145)
== END | disposition home or self-care (01) ==
LOC: LAB 13:56
PROVIDERS: PCP Family Medicine Geriatric Medicine; Referring Provider Family Medicine Geriatric Medicine; Visit Provider Family Medicine Geriatric Medicine
DX: N18.32 Chronic kidney disease, stage 3b (principal)
CPT/HCPCS: 36415; 80048

== ENCOUNTER → 2024-06-29 | Outpatient (CLI) | payer MEDICARE, OTHER, SELFPAY ==
[2024-06-29 18:46] LABS: Anion Gap 11 (5-15); BUN 27 mg/dL (4-19); BUN/Creat Ratio 20.5 RATIO (10-20); Calcium 9.2 mg/dL (7.6-11.0); Carbon Dioxide 23.4 mmol/L (22.0-29.0); Chloride 102 mmol/L (96-108); Creatinine, Serum 1.3 mg/dL (0.6-1.0); EST Glomerular Filtration Rate 39 (>60); Glucose 97 mg/dL (70-99); Potassium 4.9 mmol/L (3.3-5.1); Sodium Level 137 mmol/L (133-145)
== END | disposition home or self-care (01) ==
LOC: POLAB3 15:58
PROVIDERS: PCP Family Medicine Geriatric Medicine; Visit Provider Family Medicine Geriatric Medicine
DX: N18.32 Chronic kidney disease, stage 3b (principal)
CPT/HCPCS: 36415; 80048

== ENCOUNTER → 2025-01-18 | Outpatient (CLI) | payer MEDICARE, OTHER, SELFPAY ==
[2025-01-18 11:46] LABS: Hematocrit 39.2 % (37-47); Hemoglobin 12.7 g/dL (12.0-15.0); Immature Granulocytes Count 0.020 X10^3/uL (0.0-0.0); Mean Corp Hgb Conc 32.4 g/dL (32-36); Mean Corpuscular Volume 91.6 fL (81-99); Mean Platelet Vol. 10.7 fl (6.2-12.0); NRBC Flagged by Analyzer 0 % (0-5); Platelet Count 224 K/mm3 (150-450); RBC Distribution Width CV 12.8 % (11.6-14.6); RBC Distribution Width SD 42.2 fl (35.1-43.9); Red Blood Count 4.28 M/mm3 (4.2-5.4); White Blood Count 6.7 K/mm3 (4.4-11.0)
[2025-01-18 13:09] LABS: Vitamin D,25 Hydroxy 20.7 ng/mL (30-100)
[2025-01-18 13:13] LABS: AST(SGOT) 20 U/L (<=31); Alanine Aminotransfer ALT/SGPT 8 U/L (<=34); Albumin, Serum 4.1 g/dL (3.4-4.8); Alkaline Phosphatase 79 U/L (35-104); Anion Gap 13 (5-15); BUN 32 mg/dL (4-19); BUN/Creat Ratio 21.6 RATIO (10-20); Calcium,Total 9.2 mg/dL (7.6-11.0); Carbon Dioxide 20.5 mmol/L (21.0-32.0); Chloride 103 mmol/L (98-108); Globulin 3.1 g/dL (2.2-4.2); Glucose 107 mg/dL (70-99); Potassium 5.1 mmol/L (3.3-5.1)
[2025-01-18 19:30] LABS: Xtra Tube Kwok EXTRA TUBE
== END | disposition home or self-care (01) ==
LOC: POLAB3 11:30
PROVIDERS: PCP Family Medicine Geriatric Medicine; Visit Provider Family Medicine Geriatric Medicine
DX: I10 Essential (primary) hypertension (principal); E55.9 Vitamin D deficiency, unspecified
CPT/HCPCS: 36415; 80053; 82306; 84443; 85025

== ENCOUNTER 2025-03-21 03:57 | Emergency (ER) | payer MEDICARE, OTHER, SELFPAY ==
[2025-03-21 03:58] VITALS: BP 157/82; PULSE 100; RESP 16; TEMP 36.8; O2SAT 95; BMI 39.9
--- NOTE | 2025-03-21 04:29 | ED.VIS.GI ---
HPI HPI - GI History of Present Illness Chief Complaint: Nausea/Vomiting/Diarrhea Informant: patient Narrative Narrative: Patient is an 89-year-old female with a history of AL, stent placement, and mitral valve regurgitation, presenting with nausea, dry heaves, and diarrhea. - Symptoms began around 6 hours ago, around [id number]. - Reports persistent diarrhea and dry heaves, but denies emesis. - Denies abdominal pain, but notes a sensation of fullness during dry heaves. - Denies hematochezia, but mentions a known hemorrhoid. - Denies dysuria; reports normal urination. - Denies fever. - No recent sick contacts, travel, or exposure to undercooked meat or fish. - No recent antibiotic use; denies history of C. diff. - No prior abdominal surgeries. - Reports chronic post-nasal drainage causing throat discomfort and cough. - History of AL with stent placement and mitral valve regurgitation. - Currently on Plavix; recently discontinued aspirin due to bruising. [facility] Medical History CHF (congestive heart failure) (HFpEF) heart failure with preserved ejection fraction Arteriosclerotic coronary artery disease Mitral regurgitation Non-smoker Myocardial infarct Hypertension Obesity Anxiety and depression CKD (chronic kidney disease), stage III Hypothyroidism HLD (hyperlipidemia) CHF (congestive heart failure) Home Medications Medication Instructions Recorded Last Taken Type rosuvastatin 40 mg tablet 40 mg PO DAILY cholesterol 06/24/23 Unknown History clopidogrel 75 mg tablet 75 mg PO DAILY anti platelet #90 02/12/24 Unknown Rx tabs spironolactone 50 mg tablet 50 mg PO DAILY 1 month #30 tabs 04/26/24 Unknown Rx levothyroxine 100 mcg tablet 100 mcg PO QDAY 08/12/24 Unknown History furosemide 40 mg tablet 40 mg PO QDAY diuretic 02/22/25 Unknown History metoprolol tartrate 25 mg tablet 25 mg PO QDAY blood pressure 02/22/25 Unknown History sacubitril 97 mg-valsartan 103 mg 1 tab PO ONCE 02/22/25 Unknown History tablet (Entresto) ondansetron 8 mg disintegrating 8 mg PO Q8H PRN nausea and 03/21/25 Unknown Rx tablet vomiting #15 tabs Allergy/AdvReac Type Severity Reaction Status Date / Time amlodipine Allergy Unknown PT UNSURE Verified 03/21/25 03:57 OF REACTION lisinopril AdvReac Intermediate Dry, Verified 03/21/25 03:57 hacking, constant cough atenolol AdvReac Abd Verified 03/21/25 03:57 cramps/diarrhea Family History (Reviewed 02/22/25 @ 15:09 by Rebecca Bhatt LAMINATING MACHINE FEEDER, LAMINATING MACHINE FEEDER-C) Mother Heart disease Hypertension CHF (congestive heart failure) Father Heart disease Hypertension CHF (congestive heart failure) CAD (coronary artery disease) Myocardial infarction Surgical History Stented coronary artery (03/03/23) History of carpal tunnel release History of tonsillectomy and adenoidectomy Social History household members: none Smoking Status: Never smoker alcohol intake: never substance use type: does not use ROS ROS ED Constitutional Constitutional ED: Denies chills or fever(s) Eyes Eyes: Denies change in vision or diplopia ENT ENT ED: Denies rhinorrhea or sore throat Cardiovascular Cardiovascular: Denies chest pain or palpitations Respiratory/Chest Respiratory/Chest: Reports cough; Denies dyspnea Gastrointestinal Gastrointestinal: Reports diarrhea, hemorrhoids, nausea and vomiting; Denies abdominal pain, hematochezia or melena Genitourinary Genitourinary ED: Denies dysuria or hematuria Musculoskeletal Musculoskeletal: Denies back pain or neck pain Integumentary Denies abscess or rash Neurologic Neurologic: Denies headache(s), paresthesias or weakness Psychiatric Psychiatric: Denies anxiety or suicidal thoughts EXAM Physical Exam Const Vital Signs: 03/21/25 03:58 03/21/25 05:57 Temperature 98.3 F Temperature Source Oral Pulse Rate 100 88 Respiratory Rate 16 20 H Blood Pressure 157/82 H Blood Pressure Mean 107 Pulse Ox 95 97 Oxygen Delivery Method Room Air Positive well nourished and well developed General Appearance ED: well developed and NAD HEENT Reports moist mucous membranes normocephalic and atraumatic Eyes PERRL and EOMs intact bilaterally Neck full ROM and supple Resp normal respiratory effort and clear to auscultation bilaterally Cardio regular rate, regular rhythm and no murmurs GI non-tender and non-distended Auscultation: hyperactive bowel sounds Palpation: soft Back/Spine no CVA tenderness General Back: other FROM Extremity normal to inspection General Extremety ED: Negative for edema, pulses abnormal or tenderness General Extremity: Negative for edema or pulses abnormal Neuro oriented x3, CN's II-XII intact bilaterally and no sensory deficits noted Sensorium / Orientation: awake and alert Motor Exam: strength 5/5 throughout Skin no rashes or lesions noted and no wounds MDM MDM MDM Narrative Medical decision making narrative: Assessment: The patient is a 89-year-old female with PMH of coronary artery disease status post stent, valvular heart disease, and chronic kidney disease who presents with several hours of nausea, dry heaves, and non-bloody, non-melanotic diarrhea. Abdomen is benign with hyperactive bowel sounds and no tenderness. Labs are notable only for bicarbonate 18.7; renal indices (BUN 23, creatinine 1.3) are at or improved from prior baseline, and liver enzymes are normal. Lack of fever, travel, antibiotic use, or hematochezia lowers concern for bacterial diarrhea. Given clinical improvement after IV fluids and ondansetron, viral gastroenteritis is most likely; bacterial enteritis is less likely. Plan: - Administered IV fluids in ED. - Administered IV Zofran for nausea. - Prescribed oral Zofran on discharge. - Offered hospital admission; patient declined after symptomatic improvement. - Discharged home with return precautions discussed. Diagnostics: - Labs: bicarbonate 18.7 mmol/L; BUN 23 mg/dL; creatinine 1.3 mg/dL; liver enzymes within normal limits. Reevaluations: - After approximately 2.5 hrs: patient tolerating oral fluids well, no abdominal pain, nausea resolved, agreeable to discharge. Her biggest complaint on reevaluation is her postnasal drip symptoms with phlegm in her throat as a result "which I have had for 89 years." Discussed trying fluticasone nasal spray for this and she is amenable and will follow-up. Lab Data Attestation: I reviewed the patient's lab results. Labs: Laboratory Results - last 24 hr 03/21/25 04:18 WBC 9.8 RBC 4.33 Hgb 12.8 Hct 39.4 MCV 91.0 MCH 29.6 MCHC 32.5 RDW Std Deviation 42.1 RDW Coeff of Danelle 12.7 Plt Count 230 MPV 10.7 Immature Gran % (Auto) 0.600 Neut % (Auto) 79.2 H Lymph % (Auto) 14.3 L [place] % (Auto) 4.5 Eos % (Auto) 0.9 Baso % (Auto) 0.5 Absolute Neuts (auto) 7.8 H Absolute Lymphs (auto) 1.40 Nucleated RBC % 0 Sodium 136 Potassium 4.2 Chloride 104 Carbon Dioxide 18.7 L Anion Gap 13 BUN 23 H Creatinine 1.30 H Estim Creat Clear Calc 33.48 L Est GFR (MDRD) Non-Af 39 L BUN/Creatinine Ratio 17.4 Glucose 158 H Calcium 9.4 Total Bilirubin 0.30 AST 20 ALT 12 Alkaline Phosphatase 73 Total Protein 7.3 Albumin 4.2 Globulin 3.2 Albumin/Globulin Ratio 1.3 Discharge Plan Triage Chief Complaint: Nausea/Vomiting/Diarrhea ED Provider: Tomer Irvin Dx/Rx/DC Orders Clinical Impression: Gastroenteritis, Mild dehydration, CKD (chronic kidney disease), stage III, Postnasal drip Instructions: ED Gastroenteritis, Viral (Adult) Prescriptions: New ondansetron 8 mg tablet,disintegrating 8 mg PO Q8H PRN (Reason: nausea and vomiting) Qty: 15 0RF No Action rosuvastatin 40 mg tablet 40 mg PO DAILY levothyroxine 100 mcg tablet 100 mcg PO QDAY Patient Comments: [NO ORIGINAL SIG] sacubitril-valsartan [Entresto] 97-103 mg tablet 1 tab PO ONCE Patient Comments: [NO ORIGINAL SIG] metoprolol tartrate 25 mg tablet 25 mg PO QDAY furosemide 40 mg tablet 40 mg PO QDAY spironolactone 50 mg tablet 50 mg PO DAILY 30 Days Qty: 30 2RF Rx Instructions: Hold for serum potassium more than 5.0 clopidogrel 75 mg tablet 75 mg PO DAILY Qty: 90 3RF Primary Care Provider: Neville Serrano Chi Referrals: Neville Serrano Chi, MD [Primary Care Provider, Geriatrics] - 3-5 Days if not improving Activity Restrictions/Additional Instructions: - Take the prescribed ondansetron (Zofran) for nausea as directed by your pharmacy. - Go to the emergency department right away if you develop any of the following: fevers or chills, blood in your stool, or signs of malnutrition (for example, severe weight loss or marked weakness). - For your postnasal drip, consider getting fluticasone nasal spray and using it as directed for a month and see the makes a difference. It may take up to a week to noticed a difference in your symptoms. Print Language: Chilean Disposition Disposition: Home, Self Care D/C Safety Score for UGIB Assessment [place] Bleeding Score (GBS): Stratifies upper GI bleeding patients who are "low-risk" and candidates for outpatient management. Hemoglobin, BUN, Recent Vital Signs: Hgb 12.8 g/dL (12.0-15.0) 03/21/25 04:18 BUN 23 mg/dL (4-19) H 03/21/25 04:18 Pulse Rate 88 Blood Pressure 157/82 Score Interpretation: Score of 0: A GBS of 0 is a “Low Risk” GI bleed, and is highly sensitive (99.6% in a 2006 retrospective study) for predicting which patients did not require any “medical intervention”: blood transfusion, endoscopy, or surgery. This was confirmed in a 2009 [facility] study where patients with a score of 0 were actually discharged and had no GI bleeding mortality at 6 month followup Score above 0: A GBS greater than zero suggests a “High Risk” GI bleed that is likely to require “medical intervention”: transfusion, endoscopy, or surgery. A higher GBS also correlated with a higher likelihood of needing intervention Scores >/= 6 are associated with >50% risk of needing intervention D/C Safety Score for LGIB Assessment Assessment Tool: Readmission and adverse event risk in patients with acute lower GI bleeding. Hemoglobin and Recent Vital Signs: Hgb 12.8 g/dL (12.0-15.0) 03/21/25 04:18 Pulse Rate 88 03/21/25 05:57 Blood Pressure 157/82 03/21/25 03:58 Score Interpretation: Probability Percentage of safe discharge (absence of rebleeding, blood transfusion, therapeutic intervention, 28 day readmission, or ) Score of 8 or below: Consider discharge, with appropriate precautions. Score of 9 or above: Discharge NOT recommended. Consider admission with further workup and resuscitation as necessary.
[2025-03-21 04:49] LABS: Hematocrit 39.4 % (37-47); Hemoglobin 12.8 g/dL (12.0-15.0); Immature Granulocytes Count 0.060 X10^3/uL (0.0-0.0); Mean Corp Hgb Conc 32.5 g/dL (32-36); Mean Corpuscular Volume 91.0 fL (81-99); Mean Platelet Vol. 10.7 fl (6.2-12.0); NRBC Flagged by Analyzer 0 % (0-5); Platelet Count 230 K/mm3 (150-450); RBC Distribution Width CV 12.7 % (11.6-14.6); RBC Distribution Width SD 42.1 fl (35.1-43.9); Red Blood Count 4.33 M/mm3 (4.2-5.4); White Blood Count 9.8 K/mm3 (4.4-11.0)
[2025-03-21] MEDS: 0.9% Normal Saline (1000mL) 1,000 ML 125 ML IV (05:08)
[2025-03-21 05:17] LABS: AST(SGOT) 20 U/L (<=31); Alanine Aminotransfer ALT/SGPT 12 U/L (<=34); Albumin, Serum 4.2 g/dL (3.4-4.8); Alkaline Phosphatase 73 U/L (35-104); Anion Gap 13 (5-15); BUN 23 mg/dL (4-19); BUN/Creat Ratio 17.4 RATIO (10-20); Calcium,Total 9.4 mg/dL (7.6-11.0); Carbon Dioxide 18.7 mmol/L (21.0-32.0); Chloride 104 mmol/L (98-108); Estimated Creatinine Clearance 33.48 ml/min (50-250); Globulin 3.2 g/dL (2.2-4.2); Glucose 158 mg/dL (70-99); Potassium 4.2 mmol/L (3.3-5.1)
--- OUTSIDE RECORDS SUMMARY | 2025-03-21 05:53 | XMS RPT_ITS | CCD ---
Author Organization [facility] Care Team Providers Care Dental Detail Representative Name Role Phone Steve Shepherd Unavailable Dr. Neville Serrano Chi Primary Care Provider Dr. Latoya Amin Emergency Provider Dr. Marina Rogers Admit Provider Dr. Marina Rogers Other Provider Dr. Tien Varma Attending Provider Dr. Tien Varma Other Provider Dr. Georges Mcdonald Attending Provider Dr. Neville Serrano Chi Referring Provider Dr. Jeovanny Bal Attending Provider Dr. Jeovanny Bal Referring Provider Dr. Jeovanny Bal Other Provider Dr. Neville Serrano Chi Primary Care Provider Dr. Alphonso Thomas Emergency Provider [phone] Antwon Peguero Admit Provider Dr. Antwon Peguero Attending Provider Dr. Antwon Peguero Other Provider Dr. Georges Mcdonald Other Provider Dr. Georges Mcdonald Attending Provider Dr. Jeovanny Bal Attending Provider Dr. John Pickett Other Provider Unavailable Dr. John Pickett Attending Provider Unavailable Dr. Tomer Irvin Emergency Provider Dr. Marina Rogers Attending Provider Dr. Marina Rogers Admit Provider Dr. Marina Rogers Other Provider Dr. Connie Cortez Attending Provider Dr. Connie Cortez Other Provider Dr. Neville Serrano Chi Primary Care Provider Dr. Alphonso Thomas Emergency Provider Dr. Antwon Peguero Admit Provider Dr. Antwon Peguero Attending Provider Dr. Antwon Peguero Other Provider Dr. Georges Mcdonald Other Provider Dr. Georges Mcdonald Attending Provider Valeriano, Dr. Up Attending Provider Dr. Connie Cortez Attending Provider Dr. Antwon Peguero Referring Provider Dr. John Pickett Other Provider Unavailable Dr. John Pickett Attending Provider Unavailable Dr. Tomer Irvin Emergency Provider Dr. Marina Rogers Attending Provider Dr. Marina Rogers Admit Provider Dr. Marina Rogers Other Provider Dr. Connie Cortez Other Provider Zach, Dr. Neville Joaquin Referring Provider ROBEL Kamara Attending Provider Zach, Dr. Neville Joaquin Primary Care Provider Zach, Dr. Neville Joaquni Referring Provider ROBEL Kamara Attending Provider Valeriano, Dr. Up Attending Provider Valeriano, Dr. Up Referring Provider Zach BINGHAM, Dr. Neville Joaquin Primary Care Provider [phone] Dr. Lucio Fonseca DO Emergency Provider Valeriano BINGHAM, Dr. Up Other Provider Marielena BINGHAM, Dr. Antwon Castillo Attending Provider Mraielena BINGHAM, Dr. Antwon Castillo Admit Provider Marielena BINGHAM, Dr. Antwon Castillo Referring Provider Marielena BINGHAM, Dr. Antwon Castillo Other Provider Kojo BINGHAM, Dr. Chauhan Attending Provider Jina BULLOCK, Dr. Cordova Other Provider Johnny BINGHAM, Dr. Zi Winn Attending Provider Kojo BINGHAM, Dr. Chauhan Referring Provider Kojo BINGHAM, Dr. Chauhan Other Provider Zach BINGHAM, Dr. Neville Joaquin Attending Provider Zach BINGHAM, Dr. Neville Joaquin Referring Provider Zach BINGHAM, Dr. Neville Joaquin Primary Care Physician [phone] Zach BING[place], Dr. Neville Joaquin Attending Physician Jeovanny Bal Attending Unavailable Zach, Neville Chi Referring Unavailable Zach, Neville Chi Primary Care Unavailable Zach, Neville Chi Attending Unavailable Zach, Neville Chi Primary Care Unavailable Zach, Neville Chi Attending Unavailable Zach, Neville Chi Primary Care Unavailable Zach, Neville Chi Primary Care Unavailable Jeovanny Bal Consulting Unavailable Tien Varma Attending Unavailable Antwon Peguero Admitting Unavailable Antwon Peguero Referring Unavailable Antwon Peguero Consulting Unavailable Art Muro Consulting Unavailable Zach, Neville Chi Attending Unavailable Zach, Neville Chi Referring Unavailable Zach, Neville Chi Primary Care Unavailable Zach, Neville Chi Attending Unavailable Zach, Neville Chi Primary Care Unavailable Zach, Neville Chi Attending Unavailable Zach, Neville Chi Referring Unavailable Zach, Neville Chi Primary Care Unavailable Zach, Neville Chi Attending Unavailable Zach, Neville Chi Primary Care Unavailable Kojo, Tien Attending Unavailable Antwon Peguero Admitting Unavailable Antwon Peguero Referring Unavailable Valeriano, Jeovanny Consulting Unavailable Zach, Neville Chi Primary Care Unavailable Antwon Peguero Consulting Unavailable Art Muro Consulting Unavailable Kojo, Tien Consulting Unavailable Zach, Neville Chi Primary Care Unavailable Antwon Peguero Attending Unavailable Valeriano, [place] Consulting Unavailable Rebecca Bhatt NP Attending Unavailable Zach, Neville Chi Referring Unavailable Zach, Neville Chi Primary Care Unavailable Zach BING[place], Dr. Neville Joaquin Primary Care Physician Zach BING[place], Dr. Neville Joaquin Attending Physician Dr. Neville Serrano MD, Chi Referring Provider [phone] Miller YATES-CRebecca Attending Physician [phone] Allergies Allergy Classification Reported Allergen(s) Allergy Type Date of Onset Reaction(s) Facility (5 sources) Lisinopril Drug Allergy 4 Dry, hacking, constant cough [facility] (4 sources) Atenolol Drug Allergy 4 Abd cramps/diarrhea [facility] Comment on above: "diarrhea for 10 yea rs" (3 sources) amLODIPine Drug Allergy 4 PT UNSURE OF REACTION [facility] (1 source) amLODIPine Drug Allergy 5 [facility] Repository (1 source) Atenolol Drug Allergy 5 [facility] Repository (1 source) Lisinopril Drug Allergy 5 [facility] Repository Medications Current Medications Medication Drug Class(es) Dates Sig (Normalized) Sig (Original) eluxadoline 100 mg oral tablet (3 sources) mu-Opioid Receptor Agonist Start: 10-08-2015 take 1 tablet by mouth twice daily Eluxadoline (Viberzi) 100 MG tablet Active 100 MG PO TWICE A DAY October 07, 2015 11:00pm escitalopram 10 mg oral tablet (3 sources) Serotonin Reuptake Inhibitor Start: 10-08-2015 take 10 mg by mouth once daily Escitalopram Oxalate Active 10 MG PO DAILY October 07, 2015 11:00pm furosemide 40 mg oral tablet (20 sources) Loop Diuretic Start: 02-22-2025 take 1 tablet by mouth once daily Furosemide 40 mg tablet Active 40 mg PO daily February 22, 2025 2:27pm diuretic Complies with drug therapy Start: 04-26-2024 End: 02-22-2025 take 1 tablet by mouth twice daily at mealtime Furosemide 40 mg tablet Discontinued 40 mg PO TWICE DAILY WITH MEALS 90 30 April 26, 2024 2:01pm February 22, 2025 2:27pm diuretic Start: 03-08-2023 End: 01-09-2024 take 5 tablets by mouth once daily as needed Furosemide (Lasix) 40 mg tablet Discontinued 40 mg PO DAILY as needed for weight gain 30 0 March 08, 2023 8:53am January 09, 2024 7:58am As needed for more than 5 pound weight gain in a week Start: 08-13-2022 End: 04-26-2024 take 1 tablet by mouth once daily in the evening, then take 5 tablets by mouth every week Furosemide 40 mg tablet Discontinued 40 mg PO DAILY 90 3 August 12, 2023 10:20am April 26, 2024 2:01pm diuretic Take an additional 40 mg dose at 5 PM for increased leg swelling or weight gain 5 pounds in 1 week. LORazepam 0.5 mg oral tablet (3 sources) Benzodiazepine Start: 10-08-2015 take 0.5 mg by mouth every six hours as needed Lorazepam Active 0.5 MG PO EVERY 6 HOURS NEEDED October 07, 2015 11:00pm metoprolol tartrate 25 mg oral tablet (20 sources) beta-Adrenergic Jonas Start: 02-22-2025 take 1 tablet by mouth once daily Metoprolol Tartrate 25 mg tablet Active 25 mg PO daily February 22, 2025 2:19pm blood pressure Complies with drug therapy Start: 06-24-2023 End: 02-22-2025 take 1 tablet by mouth twice daily Metoprolol Tartrate 25 mg tablet Discontinued 25 mg PO TWICE A DAY 180 3 January 24, 2025 3:26pm February 22, 2025 2:20pm blood pressure Start: 05-23-2023 End: 06-24-2023 Metoprolol Tartrate 25 mg ta blet Discontinued 12.5 mg PO TWICE A DAY 180 May 23, 2023 9:51am June 24, 2023 9:27am Start: 05-23-2023 End: 06-24-2023 take 12.5 mg by mouth twice daily Metoprolol Tartrate Discontinued 12.5 MG PO TWICE A DAY 180 May 23, 2023 10:51am June 24, 2023 10:27am Start: 03-04-2023 End: 05-23-2023 take 1 tablet by mouth twice daily Metoprolol Tartrate 25 mg tablet Discontinued 25 mg PO TWICE A DAY 180 March 18, 2023 1:41pm May 23, 2023 9:51am rosuvastatin calcium 40 mg oral tablet (5 sources) HMG-CoA Reductase Inhibitor Start: 06-24-2023 take 1 tablet by mouth once daily Rosuvastatin 40 mg tablet Active 40 mg PO DAILY June 24, 2023 12:00am cholesterol Complies with drug therapy sacubitril 97 mg / valsartan 103 mg oral tablet (3 sources) Angiotensin 2 Receptor Jonas Start: 02-22-2025 Sacubitril-Valsart an (Entresto) 97-103 mg tablet Active 1 {tbl} PO ONCE February 22, 2025 2:19pm Complies with drug therapy Start: 08-12-2024 End: 02-22-2025 Sacubitril-Valsartan (Entres to) 97-103 mg tablet Discontinued 1 {tbl} PO TWICE A DAY August 11, 2024 11:00pm February 22, 2025 2:20pm spironolactone 50 mg oral tablet (20 sources) Aldosterone Antagonist Start: 04-26-2024 take 5 tablets by mouth once daily Spironolactone 50 mg tablet Active 50 mg PO DAILY April 26, 2024 12:00am Hold for serum potassium more than 5.0 Complies with drug therapy Start: 08-12-2023 End: 04-26-2024 take 0.5 tablet by mouth once daily Spironolactone 25 mg tablet Discontinued 0 .ROUTE .COMPLEX 45 August 12, 2023 10:20am April 26, 2024 1:59pm TAKE ONE-HALF TABLET(12.5 MG) ORALLY DAILY Start: 06-24-2023 End: 08-12-2023 take 1 tablet by mouth once daily Spironolactone 25 mg tablet Discontinued 25 mg PO DAILY June 24, 2023 9:25am August 12, 2023 10:20am diuretic Start: 08-13-2022 End: 06-24-2023 Spironolactone 25 mg tablet Discontinued 12.5 mg PO DAILY 45 3 October 01, 2022 9:00am June 24, 2023 9:27am diuretic Start: 08-13-2022 End: 06-24-2023 take 12.5 mg by mouth once daily Spironolactone Discontinued 12.5 MG PO DAILY 45 October 01, 2022 10:00am June 24, 2023 10:27am levothyroxine sodium 0.1 mg oral tablet (20 sources) l-Thyroxine Start: 08-12-2024 take 1 tablet by mouth once daily Levothyroxine 100 mcg tablet Active 100 ug PO daily August 11, 2024 11:00pm Complies with drug therapy Start: 08-22-2022 End: 08-12-2024 take 1 tablet by mouth once daily Levothyroxine 88 mcg tablet Discontinued 88 ug PO DAILY August 21, 2022 11:00pm August 12, 2024 11:58am thyroid Start: 03-28-2017 LEVOTHYROXINE SODIUM TABS as directed LEVOTHYROXINE SODIUM TABS [id number] Steve HUSTON Start: 07-20-2015 End: 08-22-2022 Levothyroxine 25 MCG tablet Discontinued 88 ug PO DAILY July 19, 2015 11:00pm August 22, 2022 1:55pm . Start: 07-20-2015 End: 08-22-2022 take 88 ug by mouth once daily Levothyroxine Discontin ued 88 MCG PO DAILY July 20, 2015 12:00am August 22, 2022 2:55pm Start: 07-20-2015 take 50 ug by mouth once daily Levothyroxine Active 50 MCG PO DAILY July 19, 2015 11:00pm Completed/Discontinued Medications Medication Drug Class(es) Dates Sig (Normalized) Sig (Original) amLODIPine 5 mg oral tablet (13 sources) Dihydropyridine Calcium Channel Jonas Start: 08-11-2022 End: 08-13-2022 take 1 tablet by mouth once daily Amlodipine 5 mg tablet Discontinued 5 mg PO DAILY August 10, 2022 11:00pm August 13, 2022 7:28am heart amoxicillin 875 mg / clavulanate 125 mg oral tablet (4 sources) Penicillin-class Antibacterial Start: 03-28-2017 End: 04-07-2017 AMOXICILLIN-POT CLAVULANATE 875-125 MG TABS Take 1 tab every 12 hours AMOXICILLIN-POT CLAVULANATE [id number] Steve HUSTON aspirin 81 mg delayed release oral tablet (13 sources) Platelet Aggregation Inhibitor, Nonsteroidal Anti-inflammatory Drug Start: 08-13-2022 End: 02-22-2025 take 1 tablet by mouth at breakfast Aspirin 81 mg Tablet,Delayed Release (Dr/Ec) Discontinued 81 mg PO WITH BREAKFAST 30 2 August 12, 2022 11:00pm February 22, 2025 2:30pm heart [facility] atenolol 50 mg oral tablet (20 sources) beta-Adrenergic Jonas Start: 03-28-2017 ATENOLOL TABS ATENOLOL TABS [id number] Steve HUSTON Start: 07-20-2015 End: 03-04-2023 take 1 tablet by mouth once daily Atenolol (Tenormin) 50 mg tablet Discontinued 50 mg PO DAILY 90 October 01, 2022 9:01am March 04, 2023 11:37am BP atorvastatin 40 mg oral tablet (20 sources) HMG-CoA Reductase Inhibitor Start: 08-13-2022 End: 06-24-2023 take 1 tablet by mouth at bedtime Atorvastatin 40 mg tablet Discontinued 40 mg PO AT BEDTIME 90 May 14, 2023 2:09pm June 24, 2023 9:26am cholesterol Start: 03-28-2017 ATORVASTATIN C ALCIUM TABS as directed ATORVASTATIN CALCIUM TABS [id number] Steve HUSTON Start: 07-20-2015 take 40 mg by mouth at bedtime Atorvastatin Active 40 MG PO AT BEDTIME July 19, 2015 11:00pm clopidogrel 75 mg oral tablet (18 sources) P2Y12 Platelet Inhibitor Start: 03-04-2023 End: 02-12-2024 take 1 tablet by mouth once daily Clopidogrel 75 mg tablet Discontinued 75 mg PO DAILY 90 3 March 18, 2023 1:41pm February 12, 2024 10:29am lisinopril 10 mg oral tablet (20 sources) Angiotensin Converting Enzyme Inhibitor Start: 08-13-2022 End: 07-01-2023 take 1 tablet by mouth once daily Lisinopril 10 mg tablet Discontinued 10 mg PO DAILY 90 3 October 01, 2022 9:01am July 01, 2023 2:29pm blood pressure Start: 03-28-2017 LISINOPRIL TAB S as directed LISINOPRIL TABS [id number] Steve HUSTON Start: 07-20-2015 take 10 mg by mouth once daily Lisinopril Active 10 MG PO DAILY July 19, 2015 11:00pm LOPERAMIDE HCL CAPS (2 sources) Opioid Agonist Start: 03-28-2017 IMODIUM A-D CA PS as directed LOPERAMIDE HCL CAPS [id number] Steve HUSTON losartan potassium 25 mg oral tablet (5 sources) Angiotensin 2 Receptor Jonas Start: 07-01-2023 End: 08-12-2024 take 1 tablet by mouth once daily Losartan 25 mg tablet Discontinued 25 mg PO DAILY 3 July 01, 2023 12:00am August 12, 2024 11:59am blood pressure magnesium oxide 400 mg oral tablet (3 sources) Start: 04-26-2024 End: 02-22-2025 take 1 tablet by mouth once daily Magnesium Oxide 400 mg magnesium tablet Discontinued 400 mg PO DAILY April 26, 2024 12:00am February 22, 2025 2:19pm mupirocin 0.02 mg/mg topical ointment (16 sources) RNA Synthetase Inhibitor Antibacterial Start: 12-02-2019 End: 2019 Mupirocin 1 APPLIC ointment Discontinued 1 NMA TOPICAL THREE TIMES A DAY 1 December 01, 2019 11:00pm December 07, 2019 11:00pm December 08, 2019 11:02pm Start: 12-02-2019 End: 2019 Mupirocin Discontinued 1 ACE LIC TOPICAL THREE TIMES A DAY 1 December 02, 2019 12:00am 2019 12:02am ondansetron 4 mg disintegrating oral tablet (4 sources) Serotonin-3 Receptor Antagonist Start: 08-13-2023 End: 04-25-2024 take 1 tablet by mouth every six hours as needed for nausea Ondansetron 4 mg tablet,disintegrating Discontinued 4 mg PO EVERY 6 HOURS NEEDED as needed for Nausea 15 0 August 13, 2023 4:43am April 25, 2024 5:04am PARoxetine hydrochloride 40 mg oral tablet (15 sources) Serotonin Reuptake Inhibitor Start: 08-11-2022 End: 02-22-2025 take 1 tablet by mouth once daily Paroxetine Hcl 40 mg tablet Discontinued 40 mg PO DAILY August 10, 2022 11:00pm February 22, 2025 2:16pm mental health Start: 03-28-2017 PAROXETINE HCL TABS as directed PAROXETINE HCL TABS [id number] Steve HUSTON predniSONE 20 mg oral tablet (16 sources) Start: 12-02-2019 End: 12-06-2019 take 2 tablets by mouth once daily at mealtime Prednisone 20 MG tablet Discontinued 40 mg PO DAILY 8 December 01, 2019 11:00pm December 04, 2019 11:00pm December 05, 2019 11:02pm Start taking daily on 12/03/2019 with food Start: 12-02-2019 End: 12-06-2019 take 40 mg by mouth once daily at mealtime Prednisone Discontinued 40 MG PO DAILY 8 December 02, 2019 12:00am December 06, 2019 12:02am Start taking daily on 12/03/2019 with food Problems Active Problems Problem Classification Problem Date Documented Da te Episodic/Chronic Acute myocardial infarction (15 sources) Myocardial infarction; Translations: [Non-ST elevation (NSTEMI) myocardial infarction] 02-28-2023 Chronic Allergic reactions (16 sources) Cutaneous hypersensitivity; Translations: [Allergy, unspecified, initial encounter] 12-03-2019 Episodic Chronic kidney disease (20 sources) Chronic kidney disease stage 3; Translations: [Stage 3 chronic kidney disease] 08-22-2022 Chronic Chronic kidney disease (1 source) Chronic kidney disease; Translations: [Chronic kidney disease, stage 3b] Onset: 07-13-2024 Congestive heart failure; nonhypertensive (20 sources) Congestive heart failure; Translations: [Heart failure, unspecified] Onset: 05-01-2024 08-11-2022 Chronic Coronary atherosclerosis and other heart disease (10 sources) Coronary arteriosclerosis; Translations: [Atherosclerotic heart disease of [place] coronary artery without angina pectoris] 03-03-2023 Chronic Comment on above: 2.5 X 12 mm Patel WILY to pLAD 02/2023 Disorders of lipid metabolism (20 sources) Hyperlipidemia; Translations: [Hyperlipidemia, unspecified] 08-22-2022 Chronic Essential hypertension (20 sources) Benign hypertension; Translations: [Essential (primary) hypertension] Onset: 01-18-2025 09-16-2022 Chronic External Injury - Natural / Environment (2 sources) Bitten by cat, initial encounter; Translations: [Bitten by cat, initial encounter] Onset: 03-28-2017 03-28-2017 Fluid and electrolyte disorders (1 source) Hypokalemia; Translations: [Hypokalemia] Onset: 01-18-2025 Episodic Heart valve disorders (17 sources) Mitral valve regurgitation; Translations: [Nonrheumatic mitral (valve) insufficiency] 03-01-2023 Chronic Nausea and vomiting (4 sources) Nausea; Translations: [Nausea] 08-13-2023 Episodic Nonspecific chest pain (20 sources) Chest pain; Translations: [Chest pain, unspecified] 08-11-2022 Episodic Nutritional deficiencies (1 source) Vitamin D deficiency, unspecified; Translations: [Vitamin D deficiency, unspecified] Onset: 01-18-2025 Chronic Other gastrointestinal disorders (4 sources) Diarrhea; Translations: [Diarrhea, unspecified] 08-13-2023 Episodic Other lower respiratory disease (14 sources) Hypoxemia; Translations: [Hypoxemia] 08-11-2022 Episodic Other lower respiratory disease (3 sources) Hypoxemia; Translations: [Hypoxemia] 08-13-2022 Episodic Other screening for suspected conditions (not mental disorders or infectious disease) (11 sources) High troponin I level; Translations: [Other specified abnormal findings of blood chemistry] 03-07-2023 Episodic Jami-; endo-; and myocarditis; cardiomyopathy (except that caused by tuberculosis or sexually transmitted disease) (14 sources) Heart valve disorder; Translations: [Endocarditis, valve unspecified] 09-16-2022 Chronic Thyroid disorders (18 sources) Hypothyroidism; Translations: [Hypothyroidism, unspecified] Onset: 01-18-2025 08-22-2022 Chronic Past or Other Problems Problem Classification Problem Date Documented Da te Episodic/Chronic Coronary atherosclerosis and other heart disease (16 sources) Stented coronary artery; Translations: [Presence of coronary angioplasty implant and graft] Onset: 03-03-2023 03-03-2023 Episodic Comment on above: 2.5 X 12 mm Patel WILY to pLAD Other lower respiratory disease (1 source) Shortness of breath; Translations: [Shortness of breath] Onset: 05-07-2024 Episodic Skin and subcutaneous tissue infections (2 sources) Cellulitis of thumb ; Translations: [Cellulitis of right finger] Onset: 03-28-2017 03-28-2017 Episodic Results Test Name Value Interpretation Reference Range Facility Cardiology Visit Reporton Cardiology Visit Report [facility] [address] [place] [address] OFFICE VISIT Date of Service: 02/22/25 MR#: [id number] Acct: [id number] Name: EUGENIA MOMIN Rep #: [id number] : 1935 Provider: DUSTIN antonio Age/Sex: 89/F Location: [facility] [place] Status: Signed HPI HPI History of Present Illness Details: Eugenia Momin is an 89-year-old lady who presents for a cardiovascular follow up. She has had no previous cardiac history other than hypertension who presented to the hospital in August of 2022 with shortness of breath which has been going on for the preceding 2 to 3 days. She had also had some midsternal chest discomfort the evening of the admission. She was seen in the emergency room and EKG was done which demonstrated sinus rhythm with no acute changes. BTNP was noted to be elevated CT scan of the chest did not demonstrate any evidence of pulmonary embolism. She underwent an echocardiogram which demonstrated preserved ejection fraction with concentric left ventricular hypertrophy moderate mitral and aortic regurgitation. She was diuresed with intravenous Lasix and asked to follow-up. She presented to [facility] on 02/28/23 with a NSTEMI, she underwent a heart cath that demonstrated a high grade lesion of her mid LAD, she underwent stenting of this vessel. She was also noted to have severe mitral regurgitation, consideration for a mitral clip was to be discussed on an OP basis. Repeat echo demonstrated mild to moderate mitral valve insufficiency. From a cardiac standpoint, the patient is doing well. She denies any palpitations, chest pain, pressure or heaviness. She does acknowledge occasional SOB with exertion-this is nothing new or worsening. She denies Orthopnea, and PND. She does acknowledge bruising. She does not have bleeding issues; no blood in urine, stool, or nosebleeds. She denies any decrease in energy level, myalgias, or claudication. She does not have edema, or sudden weight gain. She denies lightheadedness, dizziness, syncopal or near syncopal episodes, and headaches. 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: No Is patient in pain?: No Allergies amlodipine Allergy (Unknown, Verified 02/22/25 15:09) PT UNSURE OF REACTION lisinopril Adverse Reaction (Intermediate, Verified 02/22/25 15:09) Dry, hacking, constant cough atenolol Adverse Reaction (Verified 02/22/25 15:09) Abd cramps/diarrhea Medications ???Medication ???Instructions ???Recorded ???Confirmed ???Type rosuvastatin 40 mg tablet 40 mg PO DAILY cholesterol 4 02/22/25 History clopidogrel 75 mg tablet 75 mg PO DAILY anti platelet #90 1 02/22/25 Rx tabs spironolactone 50 mg tablet 50 mg PO DAILY 1 month #30 tabs 02/22/25 Rx levothyroxine 100 mcg tablet 100 mcg PO QDAY 08/12/24 02/22/25 History furosemide 40 mg tablet 40 mg PO QDAY diuretic 02/22/25 History metoprolol tartrate 25 mg tablet 25 mg PO QDAY blood pressure 02/2202/22/25 History sacubitril 97 mg-valsartan 103 mg 1 tab PO ONCE 02/22/25 02/22/25 H istory tablet (Entresto) Ejection fraction %: 50 Have you fallen in the past year?: Yes PFSH Medical History CHF (congestive heart failure) (HFpEF) heart failure with preserved ejection fraction Arteriosclerotic coronary artery disease Mitral regurgitation Non-smoker Myocardial infarct Hypertension Obesity Anxiety and depression CKD (chronic kidney disease), stage III Hypothyroidism HLD (hyperlipidemia) CHF (congestive heart failure) Surgical History Stented coronary artery (03/03/23) History of carpal tunnel release History of tonsillectomy and adenoidectomy Family History Mother Heart disease Hypertension CHF (congestive heart failure) Father Heart disease Hypertension CHF (congestive heart failure) CAD (coronary artery disease) Myocardial infarction Social History household members: none Smoking Status: Never smoker alcohol intake: never substance use type: does not use ROS Const Const: Negative for fatigue, weakness, headache(s) or frequent falls Eyes Eyes: Negative for blurry vision ENT ENT: Negative for headache(s), dizziness or Nosebleed/epistaxis Cardio Chest Pain: No Palpitations: No Edema: None Muscle aches with walking: None Resp Res (more content not included)... Normal [facility] Absolute lymphocyte countOrd ered By: Neville Serrano on 01-18-2025 Lymphocytes Auto (Unsp spec) [#/Vol] 2.61 10*3/uL 0.83-4.51 [facility] Absolute neutrophil countOrd ered By: Neville Serrano on 01-18-2025 Neutrophils (Bld) [#/Vol] 3.2 10*3/uL 2.0-7.7 [facility] Anion gap in Serum or Plasma Ordered By: Neville Serrano on 01-18-2025 Anion gap [Moles/Vol] 13 mmol/L - [facility] Automated lymphocyte count a s percentage of total leukocytesOrdered By: Neville Serrano on 01-18-2025 Lymphocytes/100 WBC Auto (Unsp spec) 38.7 % [facility] BUN/creatinine ratioOrdered By: Neville Serrano on 01-18-2025 Urea nitrogen/Creatinine [Mass ratio] 21.6 mg/mg High 10- [facility] Basophil percentageOrdered B y: Neville Serrano on 01-18-2025 Basophils/100 WBC (Bld) 1.2 % High 0-1 [facility] Bilirubin, totalOrdered By: Neville Serrano on 01-18-2025 Bilirubin [Mass/Vol] 0.25 mg/dL 0.00-1.30 [facility] CBC W/Diff, Automatedon 01-03 Absolute Lymph 2.61 X10 3/uL Normal 0.83-4.51 [facility] Comment on above: Performed By: #### L 500.4050, L506.1001, L100.0100, L501.9520 #### [facility] [address] [place], [address] Absolute Neut 3.2 X10 3/uL Normal 2.0-7.7 [facility] Comment on above: Performed By: #### L 500.4050, L506.1001, L100.0100, L501.9520 #### [facility] [address] [place], [address] Basophils/100 WBC (Bld) 1.2 % High 0-1 [facility] Comment on above: Performed By: #### L 500.4050, L506.1001, L100.0100, L501.9520 #### [facility] [address] [place], [address] Eosinophils/100 WBC (Bld) 3.4 % Normal 0-5 [facility] Comment on above: Performed By: #### L 500.4050, L506.1001, L100.0100, L501.9520 #### [facility] [address] [place], [address] Erythrocyte distribution width (RBC) [Ratio] 12.8 % Normal 11.6-14.6 [facility] Comment on above: Performed By: #### L 500.4050, L506.1001, L100.0100, L501.9520 #### [facility] [address] [place], [address] Hematocrit (Bld) [Volume fraction] 39.2 % Normal 37-47 [facility] Comment on above: Performed By: #### L 500.4050, L506.1001, L100.0100, L501.9520 #### [facility] [address] [place], [address] Hemoglobin (Bld) [Mass/Vol] 12.7 g/dL Normal 12.0-15.0 [facility] Comment on above: Performed By: #### L 500.4050, L506.1001, L100.0100, L501.9520 #### [facility] [address] [place], [address] IG% 0.300 Normal 0.0-0.9 [facility] Comment on above: Result Comment: IG% - Immature Granulocytes (promyelocytes, myelocytes and metamyelocytes) > 1% indicates that a LEFT SHIFT is Present. Performed By: #### L 500.4050, L506.1001, L100.0100, L501.9520 #### [facility] [address] [place], [address] Lymphocytes/100 WBC (Bld) 38.7 % Normal 19-41 [facility] Comment on above: Performed By: #### L 500.4050, L506.1001, L100.0100, L501.9520 #### [facility] [address] [place], [address] MCH (RBC) [Entitic mass] 29.7 pg Normal 27.0-32.0 [facility] Comment on above: Performed By: #### L 500.4050, L506.1001, L100.0100, L501.9520 #### [facility] [address] [place], [address] MCHC (RBC) [Mass/Vol] 32.4 g/dL Normal 32-36 [facility] Comment on above: Performed By: #### L 500.4050, L506.1001, L100.0100, L501.9520 #### [facility] [address] [place], [address] MCV (RBC) [Entitic vol] 91.6 fL Normal 81-99 [facility] Comment on above: Performed By: #### L 500.4050, L506.1001, L100.0100, L501.9520 #### [facility] [address] [place], [address] Monocytes/100 WBC (Bld) 9.5 % Normal 0-10 [facility] Comment on above: Performed By: #### L 500.4050, L506.1001, L100.0100, L501.9520 #### [facility] [address] [place], [address] Neutrophils/100 WBC (Bld) 46.9 % Low 47-70 [facility] Comment on above: Performed By: #### L 500.4050, L506.1001, L100.0100, L501.9520 #### [facility] [address] [place], [address] Nucleated RBC (Bld) [#/Vol] 0 10*3/uL Normal 0-5 [facility] Comment on above: Performed By: #### L 500.4050, L506.1001, L100.0100, L501.9520 #### [facility] [address] [place], [address] Platelet mean volume (Bld) [Entitic vol] 10.7 fL Normal 6.2-12.0 [facility] Comment on above: Performed By: #### L 500.4050, L506.1001, L100.0100, L501.9520 #### [facility] [address] [place], [address] Platelets (Bld) [#/Vol] 224 10*3/uL Normal 150-450 [facility] Comment on above: Performed By: #### L 500.4050, L506.1001, L100.0100, L501.9520 #### [facility] [address] [place], [address] RBC (Bld) [#/Vol] 4.28 10*6/uL Normal 4.2-5.4 [facility] Comment on above: Performed By: #### L 500.4050, L506.1001, L100.0100, L501.9520 #### [facility] [address] [place], [address] RDW SD 42.2 fl Normal 35.1-43.9 [facility] Comment on above: Performed By: #### L 500.4050, L506.1001, L100.0100, L501.9520 #### [facility] [address] [place], [address] WBC (Bld) [#/Vol] 6.7 10*3/uL Normal 4.4-11.0 [facility] Comment on above: Performed By: #### L 500.4050, L506.1001, L100.0100, L501.9520 #### [facility] [address] [place], [address] Carbon dioxide, total [Moles /volume] in Central venous bloodOrdered By: Neville Serrano on 01-18-2025 CO2 [Moles/Vol] 20.5 mmol/L Low 21.0-32.0 [facility] Chloride assayOrdered By: Lyo Serrano on 01-18-2025 Chloride [Moles/Vol] 103 mmol/L 98-108 [facility] Comprehensive Metabolic Prof ilon 01-18-2025 Albumin [Mass/Vol] 4.1 g/dL Normal 3.4-4.8 [facility] Comment on above: Performed By: #### L 500.4050, L506.1001, L100.0100, L501.9520 #### [facility] [address] [place], [address] Albumin/Globulin [Mass ratio] 1.3 {ratio} Normal 0.9-2.4 [facility] Comment on above: Performed By: #### L 500.4050, L506.1001, L100.0100, L501.9520 #### [facility] [address] [place], [address] ALK PHOS 79 U/L Normal 35-104 [facility] Comment on above: Performed By: #### L 500.4050, L506.1001, L100.0100, L501.9520 #### [facility] [address] [place], [address] ALT [Catalytic activity/Vol] 8 U/L Normal <=34 [facility] Comment on above: Performed By: #### L 500.4050, L506.1001, L100.0100, L501.9520 #### [facility] [address] [place], [address] AST [Catalytic activity/Vol] 20 U/L Normal <=31 [facility] Comment on above: Result Comment: Hemo lysis present, Results??could be affected. ?? Performed By: #### L 500.4050, L506.1001, L100.0100, L501.9520 #### [facility] [address] [place], [address] Bilirubin [Mass/Vol] 0.25 mg/dL Normal 0.00-1.30 [facility] Comment on above: Performed By: #### L 500.4050, L506.1001, L100.0100, L501.9520 #### [facility] [address] [place], [address] BUN/CRE 21.6 RATIO High 10-20 [facility] Comment on above: Performed By: #### L 500.4050, L506.1001, L100.0100, L501.9520 #### [facility] [address] [place], [address] Calcium [Mass/Vol] 9.2 mg/dL Normal 7.6-11.0 [facility] Comment on above: Performed By: #### L 500.4050, L506.1001, L100.0100, L501.9520 #### [facility] [address] [place], [address] Chloride [Moles/Vol] 103 mmol/L Normal 98-108 [facility] Comment on above: Performed By: #### L 500.4050, L506.1001, L100.0100, L501.9520 #### [facility] [address] [place], [address] CO2 [Moles/Vol] 20.5 mmol/L Low 21.0-32.0 [facility] Comment on above: Performed By: #### L 500.4050, L506.1001, L100.0100, L501.9520 #### [facility] [address] [place], [address] Creatinine [Mass/Vol] 1.49 mg/dL High 0.70-1.20 [facility] Comment on above: Performed By: #### L 500.4050, L506.1001, L100.0100, L501.9520 #### [facility] [address] [place], [address] GAP 13 Normal 5-15 [facility] Comment on above: Performed By: #### L 500.4050, L506.1001, L100.0100, L501.9520 #### [facility] [address] [place], [address] GFR/1.73 sq M.predicted among non-blacks MDRD (S/P/Bld) [Vol rate/Area] 33 mL/min/{1.73_m2} Low >60 [facility] Comment on above: Result Comment: mL/m in/1.73m2 CKD-EPI Creatinine Equation (2020) Performed By: #### L 500.4050, L506.1001, L100.0100, L501.9520 #### [facility] [address] [place], [address] Globulin (S) [Mass/Vol] 3.1 g/dL Normal 2.2-4.2 [facility] Comment on above: Performed By: #### L 500.4050, L506.1001, L100.0100, L501.9520 #### [facility] [address] [place], [address] Glucose [Mass/Vol] 107 mg/dL High 70-99 [facility] Comment on above: Performed By: #### L 500.4050, L506.1001, L100.0100, L501.9520 #### [facility] [address] [place], [address] Potassium [Moles/Vol] 5.1 mmol/L Normal 3.3-5.1 [facility] Comment on above: Result Comment: Hemo lysis present, Results??could be affected. ?? Performed By: #### L 500.4050, L506.1001, L100.0100, L501.9520 #### [facility] [address] [place], [address] Sodium [Moles/Vol] 137 mmol/L Normal 133-145 [facility] Comment on above: Performed By: #### L 500.4050, L506.1001, L100.0100, L501.9520 #### [facility] [address] [place], [address] T PROT 7.1 g/dL Normal 5.9-8.4 [facility] Comment on above: Performed By: #### L 500.4050, L506.1001, L100.0100, L501.9520 #### [facility] [address] [place], [address] Urea nitrogen [Mass/Vol] 32 mg/dL High 4-19 [facility] Comment on above: Performed By: #### L 500.4050, L506.1001, L100.0100, L501.9520 #### [facility] [address] [place], [address] Eosinophil percentageOrdered By: Neville Serrano on 01-18-2025 Eosinophils/100 WBC (Bld) 3.4 % 0-5 [facility] Erythrocyte distribution wid th ratioOrdered By: Neville Serrano on 01-18-2025 Erythrocyte distribution width (RBC) [Ratio] 12.8 % 11.6-14.6 [facility] Erythrocyte distribution wid th standard deviationOrdered By: Neville Serrano on 01-18-2025 Erythrocyte distribution width (RBC) [Ratio] 42.2 fl 35.1-43.9 [facility] Glomerular filtration rate ( GFR) estimation/1.73 sq m using serum, plasma, or whole bOrdered By: Neville Serrano on 01-18-2025 GFR/1.73 sq M.predicted among non-blacks MDRD (S/P/Bld) [Vol rate/Area] 33 mL/min/{1.73_m2} Low >60 [facility] Comment on above: mL/min/1.73m2 CKD-EP I Creatinine Equation (2020) Hematocrit Auto (Bld) [Volum e fraction]Ordered By: Neville Serrano on 01-18-2025 Hematocrit (Bld) [Volume fraction] 39.2 % 37-47 [facility] Hemoglobin measurementOrdere d By: Neville Serrano on 01-18-2025 Hemoglobin (Bld) [Mass/Vol] 12.7 g/dL 12.0-15.0 [facility] Immature granulocytes/100 WB C Auto (Bld)Ordered By: Neville Serrano on 01-18-2025 Immature granulocytes/100 WBC (Bld) 0.300 % 0.0-0.9 [facility] Comment on above: IG% - Immature Granu locytes (promyelocytes, myelocytes and metamyelocytes) > 1% indicates that a LEFT SHIFT is Present. Laboratory - Chemistry and C hemistry - challengeOrdered By: Neville Serrano on 01-18-2025 AST [Catalytic activity/Vol] 20 U/L <32 [facility] Comment on above: Hemolysis present, R esults could be affected. MCV (mean corpuscular volume ) determinationOrdered By: Neville Serrano on 01-18-2025 MCV (RBC) [Entitic vol] 91.6 fL 81-99 [facility] Mean corpuscular hemoglobin (MCH) determinationOrdered By: Neville Serrano on 01-18-2025 MCH (RBC) [Entitic mass] 29.7 pg 27.0-32.0 [facility] Mean corpuscular hemoglobin concentration (MCHC) determinationOrdered By: Neville Serrano on 01-18-2025 MCHC (RBC) [Mass/Vol] 32.4 g/dL 32-36 [facility] Mean platelet volume determi nationOrdered By: Neville Serrano on 01-18-2025 Platelet mean volume (Bld) [Entitic vol] 10.7 fL 6.2-12.0 [facility] Monocyte percentageOrdered B y: Neville Serrano on 01-18-2025 Monocytes/100 WBC (Bld) 9.5 % 0-10 [facility] Neutrophil percentageOrdered By: Neville Serrano on 01-18-2025 Neutrophils/100 WBC (Bld) 46.9 % Low 47-70 [facility] Nucleated red blood cell per centageOrdered By: Neville Serrano on 01-18-2025 Nucleated RBC/100 WBC (Bld) [Ratio] 0 % 0-5 [facility] Platelet countOrdered By: Loy Serrano on 01-18-2025 Platelets (Bld) [#/Vol] 224 10*3/uL 150-450 [facility] Potassium measurement (mass/ volume)Ordered By: Neville Serrano on 01-18-2025 Potassium (Unsp spec) [Mass/Vol] 5.1 mmol/L 3.3-5.1 [facility] Comment on above: Hemolysis present, R esults could be affected. RBC Auto (Bld) [#/Vol]Ordere d By: Neville Serrano on 01-18-2025 RBC (Bld) [#/Vol] 4.28 10*6/uL 4.2-5.4 [facility] Serum creatinine measurement (mass/volume)Ordered By: Neville Serrano on 01-18-2025 Creatinine [Mass/Vol] 1.49 mg/dL High 0.70-1.20 [facility] Serum globulin measurementOr dered By: Neville Serrano 01-18-2025 Globulin (S) [Mass/Vol] 3.1 g/dL 2.2-4.2 [facility] Serum glucose measurement (m ass/volume)Ordered By: Neville Serrano 01-18-2025 Glucose [Mass/Vol] 107 mg/dL High 70-99 [facility] Serum or plasma alanine gaspar otransferase (ALT) measurementOrdered By: Neville Serrano 01-18-2025 ALT [Catalytic activity/Vol] 8 U/L <35 [facility] Serum or plasma albumin andreas urement (mass/volume)Ordered By: Neville Serrano 01-18-2025 Albumin [Mass/Vol] 4.1 g/dL 3.4-4.8 [facility] Serum or plasma albumin/glob ulin mass ratioOrdered By: Neville Serrano 01-18-2025 Albumin/Globulin [Mass ratio] 1.3 {ratio} 0.9-2.4 [facility] Serum or plasma alkaline be sphatase measurementOrdered By: Neville Serrano 01-18-2025 ALP [Catalytic activity/Vol] 79 U/L 35-104 [facility] Serum or plasma calcium andreas urement (mass/volume)Ordered By: Neville Serrano 01-18-2025 Calcium [Mass/Vol] 9.2 mg/dL 7.6-11.0 [facility] Serum or plasma urea nitroge n measurement (mass/volume)Ordered By: Neville Serrano 01-18-2025 Urea nitrogen [Mass/Vol] 32 mg/dL High 4-19 [facility] Sodium levelOrdered By: Neville Serrano on 01-18-2025 Sodium [Moles/Vol] 137 mmol/L 133-145 [facility] TSH DL <= 0.005 mIU/L QnOrde red By: Neville Serrano on 01-18-2025 TSH Qn 4.040 uIU/mL 0.300-4.200 [facility] Thyroid Stim Hormone (TSH)on 01-18-2025 TSH 4.040 uIU/mL Normal 0.300-4.200 [facility] Comment on above: Performed By: #### L 500.4050, L506.1001, L100.0100, L501.9520 #### [facility] [address] [place], [place], [address] Total proteinOrdered By: Neville Serrano on 01-18-2025 Protein [Mass/Vol] 7.1 g/dL 5.9-8.4 [facility] Vitamin D,25 Hydroxyon 01-18 Vitamin D 25-OH 20.7 ng/mL Low 30-100 [facility] Comment on above: Result Comment: Luz Marina min D Status Deficiency: <20 ng/mL (50nmol/L) Insufficiency: 20-30 ng/mL (50-75 nmol/L) Sufficiency: 30-100 ng/mL (75-250 nmol/L) Toxicity: >100 ng/mL (>250 nmol/L) Performed By: #### L 500.4050, L506.1001, L100.0100, L501.9520 #### [facility] [address] [place], [place], [address] White blood cell (WBC) count Ordered By: Neville Serrano on 01-18-2025 WBC (Bld) [#/Vol] 6.7 10*3/uL 4.4-11.0 [facility] Cardiology Visit Reporton Cardiology Visit Report [facility] [address] [place] [address] OFFICE VISIT Date of Service: 08/12/24 MR#: [id number] Acct: [id number] Name: EUGENIA MOMIN Rep #: [id number] : 1935 Provider: Dr. Jeovanny Bal MD Age/Sex: 88/F Location: [facility] Status: Signed HPI HPI History of Present Illness Details: Eugenia Momin is an 88-year-old lady who presents for a follow up. She had previous cardiac history other than hypertension who presented to the hospital in August of 2022 with shortness of breath which has been going on for the preceding 2 to 3 days. She had also had some midsternal chest discomfort the evening of the admission. She was seen in the emergency room and EKG was done which demonstrated sinus rhythm with no acute changes. BT [employer] was noted to be elevated CT scan of the chest did not demonstrate any evidence of pulmonary embolism. She underwent an echocardiogram which demonstrated preserved ejection fraction with concentric left ventricular hypertrophy moderate mitral and aortic regurgitation. She was diuresed with intravenous Lasix and asked to follow-up. She presented to [facility] on 02/28/23 with a NSTEMI, she underwent a heart cath that demonstrated a high grade lesion of her mid LAD, she underwent stenting of this vessel. She was also noted to have severe mitral regurgitation, consideration for a mitral clip was to be discussed on an OP basis. Repeat echo demonstrated mild to moderate mitral valve insuff. From a cardiac standpoint, patient is doing well. She does not have any chest discomfort/heaviness/t ightness. She does not have any worsening symptoms of shortness of breath. She does not have any orthopnea. She denies PND. She does not have any symptoms of congestive heart failure. She does not have any palpitations that she is aware of. She does not have any lightheadedness or dizziness. She does not have any near-syncope or syncope. She does not have any lower extremity edema. She does not have any symptoms of claudication. 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 Accompanied by: Self Is patient in pain?: No Allergies amlodipine Allergy (Unknown, Verified 08/12/24 12:58) PT UNSURE OF REACTION lisinopril Adverse Reaction (Intermediate, Verified 08/12/24 12:58) Dry, hacking, constant cough atenolol Adverse Reaction (Verified 08/12/24 12:58) Abd cramps/diarrhea Medications ???Medication ???Instructions ???Recorded ???Confirmed ???Type paroxetine HCl 40 mg tablet 40 mg PO DAILY mental health 08/1108/12/24 History aspirin 81 mg tablet,delayed 81 mg PO BREAKFAST heart health 08/12/24 Rx release #30 tabs rosuvastatin 40 mg tablet 40 mg PO DAILY cholesterol 4 08/12/24 History clopidogrel 75 mg tablet 75 mg PO DAILY anti platelet #90 1 08/12/24 Rx tabs metoprolol tartrate 25 mg tablet 25 mg PO BID blood pressure #180 1 05/29/23 08/12/24 Rx tabs furosemide 40 mg tablet 40 mg PO BIDCM diuretic 30 days 08/12/24 Rx #90 tabs magnesium oxide 400 mg PO DAILY 1 month #30 tabs 1 06/27/23 08/12/24 Rx spironolactone 50 mg tablet 50 mg PO DAILY 1 month #30 tabs 08/12/24 Rx levothyroxine 100 mcg tablet 100 mcg PO QDAY 08/12/24 08/12/24 History sacubitril 97 mg-valsartan 103 mg 1 tab PO BID 08/12/24 08/12/24 Hi story tablet (Entresto) Have you fallen in the past year?: Yes PFSH Medical History CHF (congestive heart failure) (HFpEF) heart failure with preserved ejection fraction Arteriosclerotic coronary artery disease Mitral regurgitation Non-smoker Myocardial infarct Hypertension Obesity Anxiety and depression CKD (chronic kidney disease), stage III Hypothyroidism HLD (hyperlipidemia) CHF (congestive heart failure) Surgical History Stented coronary artery (03/03/23) History of carpal tunnel release History of tonsillectomy and adenoidectomy Family History Mother Heart disease Hypertension CHF (congestive heart failure) Father Heart disease Hypertension CHF (congestive heart failure) CAD (coronary artery disease) Myocardial infarction Social History household members: none Smoking Status: Never smoker alcohol intake: never substance use type: does not use ROS Const Const: Positive for fatigue; Negative for (more content not included)... Normal [facility] BUN/creatinine ratioOrdered By: Neville Serrano on 06-29-2024 Urea nitrogen/Creatinine [Mass ratio] 20.5 mg/mg High [facility] Basic Metabolic Profile (BMP )on 06-29-2024 Anion gap [Moles/Vol] 11 mmol/L Normal -15 [facility] Comment on above: Performed By: #### L 500.4050, L506.1001, L100.0100, L501.9520 #### [facility] [address] [place], [address] BUN/CRE 20.5 RATIO High [facility] Comment on above: Performed By: #### L 500.4050, L506.1001, L100.0100, L501.9520 #### [facility] [address] [place], [address] Calcium [Mass/Vol] 9.2 mg/dL Normal 7.6-11.0 [facility] Comment on above: Performed By: #### L 500.4050, L506.1001, L100.0100, L501.9520 #### [facility] [address] [place], [address] Chloride [Moles/Vol] 102 mmol/L Normal 96-108 [facility] Comment on above: Performed By: #### L 500.4050, L506.1001, L100.0100, L501.9520 #### [facility] [address] [place], [address] CO2 [Moles/Vol] 23.4 mmol/L Normal 22.0-29.0 [facility] Comment on above: Performed By: #### L 500.4050, L506.1001, L100.0100, L501.9520 #### [facility] [address] [place], [address] Creatinine [Mass/Vol] 1.3 mg/dL High 0.6-1.0 [facility] Comment on above: Performed By: #### L 500.4050, L506.1001, L100.0100, L501.9520 #### [facility] [address] [place], [address] GFR/1.73 sq M.predicted among non-blacks MDRD (S/P/Bld) [Vol rate/Area] 39 mL/min/{1.73_m2} Low >60 [facility] Comment on above: Result Comment: mL/m in/1.73m2 CKD-EPI Creatinine Equation (2020) Performed By: #### L 500.4050, L506.1001, L100.0100, L501.9520 #### [facility] [address] [place], [address] Glucose [Mass/Vol] 97 mg/dL Normal 70-99 [facility] Comment on above: Performed By: #### L 500.4050, L506.1001, L100.0100, L501.9520 #### [facility] [address] [place], [address] Potassium [Moles/Vol] 4.9 mmol/L Normal 3.3-5.1 [facility] Comment on above: Result Comment: Hemo lysis present, Results??could be affected. ?? Performed By: #### L 500.4050, L506.1001, L100.0100, L501.9520 #### [facility] [address] [place], [address] Sodium [Moles/Vol] 137 mmol/L Normal 133-145 [facility] Comment on above: Performed By: #### L 500.4050, L506.1001, L100.0100, L501.9520 #### [facility] [address] [place], [address] Urea nitrogen [Mass/Vol] 27 mg/dL High 4-19 [facility] Comment on above: Performed By: #### L 500.4050, L506.1001, L100.0100, L501.9520 #### [facility] [address] [place], [address] Creatinine [Moles/Vol]Ordere d By: Neville Serrano on 06-29-2024 Creatinine [Mass/Vol] 1.3 mg/dL High 0.6-1.0 [facility] GFR/1.73 sq M.predicted yuki g non-blacks MDRD (S/P/Bld) [Vol rate/Area]Ordered By: Neville Serrano on 06-29-2024 Estimated GFR (MDRD) Non-Af Amer 39 Low >60 [facility] Comment on above: mL/min/1.73m2 CKD-EP I Creatinine Equation (2020) Serum glucose measurement (m ass/volume)Ordered By: Neville Serrano on 06-29-2024 Glucose [Mass/Vol] 97 mg/dL 70-99 [facility] Serum or plasma anion gap de termination (moles/volume)Ordered By: Neville Serrano on 06-29-2024 Anion gap [Moles/Vol] 11 mmol/L 5-15 [facility] Serum or plasma calcium andreas urement (mass/volume)Ordered By: Neville Serrano on 06-29-2024 Calcium [Mass/Vol] 9.2 mg/dL 7.6-11.0 [facility] Serum or plasma potassium me asurementOrdered By: Neville Serrano on 06-29-2024 Potassium [Moles/Vol] 4.9 mmol/L 3.3-5.1 [facility] Comment on above: Hemolysis present, R esults could be affected. Serum or plasma sodium measu rement (moles/volume)Ordered By: Neville Serrano on 06-29-2024 Sodium [Moles/Vol] 137 mmol/L 133-145 [facility] Serum or plasma urea nitroge n measurement (mass/volume)Ordered By: Neville Serrano on 06-29-2024 Urea nitrogen [Mass/Vol] 27 mg/dL High 4-19 [facility] Basic Metabolic Profile (BMP )on 06-15-2024 BUN/CRE 23.7 RATIO High 10-20 [facility] Comment on above: Performed By: #### L 500.4050, L506.1001, L100.0100, L501.9520 #### [facility] [address] [place], [address] CA,Total 9.5 mg/dL Normal 8.5-10.1 [facility] Comment on above: Performed By: #### L 500.4050, L506.1001, L100.0100, L501.9520 #### [facility] [address] [place], [address] Chloride [Moles/Vol] 102 mmol/L Normal 98-107 [facility] Comment on above: Performed By: #### L 500.4050, L506.1001, L100.0100, L501.9520 #### [facility] [address] [place], [address] CO2 [Moles/Vol] 22.0 mmol/L Normal 21.0-32.0 [facility] Comment on above: Performed By: #### L 500.4050, L506.1001, L100.0100, L501.9520 #### [facility] [address] [place], [address] Creatinine [Mass/Vol] 1.77 mg/dL High 0.55-1.02 [facility] Comment on above: Result Comment: The validity of the calculated GFR GFRAA in patients over 70 years has not been determined. Clinical correlation is essential. Performed By: #### L 500.4050, L506.1001, L100.0100, L501.9520 #### [facility] [address] [place], [address] EST GFR - AA 35 mL/min Low >60 [facility] Comment on above: Result Comment: Afri can Cypriot GFR Calc Performed By: #### L 500.4050, L506.1001, L100.0100, L501.9520 #### [facility] [address] [place], [address] GAP 13 Normal 5-15 [facility] Comment on above: Performed By: #### L 500.4050, L506.1001, L100.0100, L501.9520 #### [facility] [address] [place], [address] GFR/1.73 sq M.predicted among non-blacks MDRD (S/P/Bld) [Vol rate/Area] 29 mL/min/{1.73_m2} Low >60 [facility] Comment on above: Result Comment: Non- GFR Calc Performed By: #### L 500.4050, L506.1001, L100.0100, L501.9520 #### [facility] [address] [place], [address] Glucose [Mass/Vol] 119 mg/dL High 74-106 [facility] Comment on above: Result Comment: Fast ing Glucose result from 100 to 125 mg/dL suggests IMPAIRED HOMEOSTASIS per A.D.A. criteria. Performed By: #### L 500.4050, L506.1001, L100.0100, L501.9520 #### [facility] [address] [place], [address] Potassium [Moles/Vol] 4.8 mmol/L Normal 3.5-5.1 [facility] Comment on above: Result Comment: Mode rate Hemolysis, Result may be falsely increased. Performed By: #### L 500.4050, L506.1001, L100.0100, L501.9520 #### [facility] [address] [place], [address] Sodium [Moles/Vol] 136 mmol/L Normal 136-145 [facility] Comment on above: Performed By: #### L 500.4050, L506.1001, L100.0100, L501.9520 #### [facility] [address] [place], [address] Urea nitrogen [Mass/Vol] 42 mg/dL High 7-18 [facility] Comment on above: Performed By: #### L 500.4050, L506.1001, L100.0100, L501.9520 #### [facility] [address] [place], [address] Blood urea nitrogen (BUN)/cr eatinine ratioOrdered By: Neville Serrano on 06-15-2024 Urea nitrogen/Creatinine [Mass ratio] 23.7 mg/mg High 10-20 [facility] Carbon dioxide measurementOr dered By: Neville Serrano 06-15-2024 CO2 [Moles/Vol] 22.0 mmol/L 21.0-32.0 [facility] Chloride measurementOrdered By: Neville Serrano 06-15-2024 Chloride [Moles/Vol] 102 mmol/L 98-107 [facility] Estimated glomerular filtrat ion rate (GFR) AmericanOrdered By: Neville Serrano on 06-15-2024 Estimated GFR (MDRD) Amer 35 mL/min Low >60 [facility] Comment on above: GFR Calc Glomerular filtration rate ( GFR) estimationOrdered By: Neville Serrano on 06-15-2024 Estimated GFR (MDRD) Non-Af Amer 29 mL/min Low >60 [facility] Comment on above: Non- GFR Calc Glucose measurementOrdered B y: Neville Serrano on 06-15-2024 Glucose [Mass/Vol] 119 mg/dL High 74-106 [facility] Comment on above: Fasting Glucose resu lt from 100 to 125 mg/dL suggests IMPAIRED HOMEOSTASIS per A.D.A. criteria. Potassium measurementOrdered By: Neville Serrano on 06-15-2024 Potassium [Moles/Vol] 4.8 mmol/L 3.5-5.1 [facility] Comment on above: Moderate Hemolysis, Result may be falsely increased. Serum anion gap measurementO rdered By: Neville Serrano on 06-15-2024 Anion gap [Moles/Vol] 13 mmol/L 5-15 [facility] Serum or plasma calcium andreas urement (mass/volume)Ordered By: Neville Serrano on 06-15-2024 Calcium [Mass/Vol] 9.5 mg/dL 8.5-10.1 [facility] Serum or plasma creatinine m easurement (mass/volume)Ordered By: Neville Serrano on 06-15-2024 Creatinine [Mass/Vol] 1.77 mg/dL High 0.55-1.02 [facility] Comment on above: The validity of the calculated GFR & GFRAA in patients over 70 years has not been determined. Clinical correlation is essential. Serum or plasma urea nitroge n measurement (mass/volume)Ordered By: Neville Serrano on 06-15-2024 Urea nitrogen [Mass/Vol] 42 mg/dL High 7-18 [facility] Sodium levelOrdered By: Neville Serrano on 06-15-2024 Sodium [Moles/Vol] 136 mmol/L 136-145 [facility] 56-[id number]-Zhpqwsp DOrdered By: Stephanie Serrano on 06-02-2024 Vitamin D 25-Hydroxy 24.4 ng/mL [facility] Comment on above: Vitamin D 25(OH) Sta tus Range Deficiency <20 ng/mL (50nmol/L) Insufficiency 20 - 30 ng/mL (50 - 75 nmol/L) Sufficiency 30 - 100 ng/mL (75 - 250 nmol/L) Toxicity >100 ng/mL (>250 nmol/L) Absolute neutrophil countOrd ered By: Neville Serrano on 06-02-2024 Neutrophils (Bld) [#/Vol] 4.3 10*3/uL 2.0-7.7 [facility] Albumin to globulin ratioOrd ered By: Neville Serrano on 06-02-2024 Albumin/Globulin [Mass ratio] 0.8 {ratio} Low 0.9-2.4 [facility] Basophil percentageOrdered B y: Neville Serrano on 06-02-2024 Basophils/100 WBC (Bld) 0.7 % 0-1 [facility] Bilirubin, totalOrdered By: Neville Serrano on 06-02-2024 Bilirubin [Mass/Vol] 0.30 mg/dL 0.20-1.00 [facility] Comment on above: For patients on eltr ombopag therapy, use of Dimension [place] TBIL is not recommended. Blood urea nitrogen (BUN)/cr eatinine ratioOrdered By: Neville Serrano on 06-02-2024 Urea nitrogen/Creatinine [Mass ratio] 21.9 mg/mg High 10-20 [facility] CBC W/Diff, Automatedon 05-06 Absolute Lymph 2.74 X10 3/uL Normal 0.83-4.51 [facility] Comment on above: Performed By: #### L 501.9520, L500.4050, L506.1000, L100.0100 #### [facility] [address] [place], [address] Absolute Neut 4.3 X10 3/uL Normal 2.0-7.7 [facility] Comment on above: Performed By: #### L [id number], L500.4050, L506.1000, L100.0100 #### [facility] [address] [place], [address] Basophils/100 WBC (Bld) 0.7 % Normal 0-1 [facility] Comment on above: Performed By: #### L [id number], L500.4050, L506.1000, L100.0100 #### [facility] [address] [place], [address] Eosinophils/100 WBC (Bld) 3.6 % Normal 0-5 [facility] Comment on above: Performed By: #### L 501.9520, L500.4050, L506.1000, L100.0100 #### [facility] [address] [place], [address] Erythrocyte distribution width (RBC) [Ratio] 12.4 % Normal 11.6-14.6 [facility] Comment on above: Performed By: #### L 501.9520, L500.4050, L506.1000, L100.0100 #### [facility] [address] [place], [address] Hematocrit (Bld) [Volume fraction] 39.5 % Normal 37-47 [facility] Comment on above: Performed By: #### L 501.9520, L500.4050, L506.1000, L100.0100 #### [facility] [address] [place], [address] Hemoglobin (Bld) [Mass/Vol] 13.0 g/dL Normal 12.0-15.0 [facility] Comment on above: Performed By: #### L 501.9520, L500.4050, L506.1000, L100.0100 #### [facility] [address] [place], [address] IG% 0.400 Normal 0.0-0.9 [facility] Comment on above: Result Comment: IG% - Immature Granulocytes (promyelocytes, myelocytes and metamyelocytes) > 1% indicates that a LEFT SHIFT is Present. Performed By: #### L 501.9520, L500.4050, L506.1000, L100.0100 #### [facility] [address] [place], [address] Lymphocytes/100 WBC (Bld) 33.8 % Normal 19-41 [facility] Comment on above: Performed By: #### L 501.9520, L500.4050, L506.1000, L100.0100 #### [facility] [address] [place], [address] MCH (RBC) [Entitic mass] 29.6 pg Normal 27.0-32.0 [facility] Comment on above: Performed By: #### L 501.9520, L500.4050, L506.1000, L100.0100 #### [facility] [address] [place], [address] MCHC (RBC) [Mass/Vol] 32.9 g/dL Normal 32-36 [facility] Comment on above: Performed By: #### L 501.9520, L500.4050, L506.1000, L100.0100 #### [facility] [address] [place], [address] MCV (RBC) [Entitic vol] 90.0 fL Normal 81-99 [facility] Comment on above: Performed By: #### L 501.9520, L500.4050, L506.1000, L100.0100 #### [facility] [address] [place], [address] Monocytes/100 WBC (Bld) 8.9 % Normal 0-10 [facility] Comment on above: Performed By: #### L 501.9520, L500.4050, L506.1000, L100.0100 #### [facility] [address] [place], [address] Neutrophils/100 WBC (Bld) 52.6 % Normal 47-70 [facility] Comment on above: Performed By: #### L 501.9520, L500.4050, L506.1000, L100.0100 #### [facility] [address] [place], [address] Nucleated RBC (Bld) [#/Vol] 0 10*3/uL Normal 0-5 [facility] Comment on above: Performed By: #### L 501.9520, L500.4050, L506.1000, L100.0100 #### [facility] [address] [place], [address] Platelet mean volume (Bld) [Entitic vol] 10.1 fL Normal 6.2-12.0 [facility] Comment on above: Performed By: #### L 501.9520, L500.4050, L506.1000, L100.0100 #### [facility] [address] [place], [address] Platelets (Bld) [#/Vol] 288 10*3/uL Normal 150-450 [facility] Comment on above: Performed By: #### L 501.9520, L500.4050, L506.1000, L100.0100 #### [facility] [address] [place], [address] RBC (Bld) [#/Vol] 4.39 10*6/uL Normal 4.2-5.4 [facility] Comment on above: Performed By: #### L 501.9520, L500.4050, L506.1000, L100.0100 #### [facility] [address] [place], [address] RDW SD 40.8 fl Normal 35.1-43.9 [facility] Comment on above: Performed By: #### L 501.9520, L500.4050, L506.1000, L100.0100 #### [facility] [address] [place], [address] WBC (Bld) [#/Vol] 8.1 10*3/uL Normal 4.4-11.0 [facility] Comment on above: Performed By: #### L 501.9520, L500.4050, L506.1000, L100.0100 #### [facility] [address] [place], [address] Carbon dioxide measurementOr dered By: Neville Serrano on 06-02-2024 CO2 [Moles/Vol] 26.0 mmol/L 21.0-32.0 [facility] Chloride measurementOrdered By: Neville Serrano on 06-02-2024 Chloride [Moles/Vol] 103 mmol/L 98-107 [facility] Comprehensive Metabolic Prof ilon 06-02-2024 Albumin [Mass/Vol] 3.4 g/dL Normal 3.2-5.0 [facility] Comment on above: Performed By: #### L 501.9520, L500.4050, L506.1000, L100.0100 #### [facility] [address] [place], [address] Albumin/Globulin [Mass ratio] 0.8 {ratio} Low 0.9-2.4 [facility] Comment on above: Performed By: #### L 501.9520, L500.4050, L506.1000, L100.0100 #### [facility] [address] [place], [address] ALK P 87 U/L Normal 45-117 [facility] Comment on above: Performed By: #### L 501.9520, L500.4050, L506.1000, L100.0100 #### [facility] [address] [place], [address] ALT [Catalytic activity/Vol] 17 U/L Normal 13-56 [facility] Comment on above: Performed By: #### L 501.9520, L500.4050, L506.1000, L100.0100 #### [facility] [address] [place], [address] AST [Catalytic activity/Vol] 13 U/L Low 15-37 [facility] Comment on above: Performed By: #### L 501.9520, L500.4050, L506.1000, L100.0100 #### [facility] [address] [place], [address] Bilirubin [Mass/Vol] 0.30 mg/dL Normal 0.20-1.00 [facility] Comment on above: Result Comment: For patients on eltrombopag therapy, use of Dimension [place] TBIL is not recommended. Performed By: #### L 501.9520, L500.4050, L506.1000, L100.0100 #### [facility] [address] [place], [address] BUN/CRE 21.9 RATIO High 10-20 [facility] Comment on above: Performed By: #### L 501.9520, L500.4050, L506.1000, L100.0100 #### [facility] [address] [place], [address] CA,Total 9.1 mg/dL Normal 8.5-10.1 [facility] Comment on above: Performed By: #### L 501.9520, L500.4050, L506.1000, L100.0100 #### [facility] [address] [place], [address] Chloride [Moles/Vol] 103 mmol/L Normal 98-107 [facility] Comment on above: Performed By: #### L 501.9520, L500.4050, L506.1000, L100.0100 #### [facility] [address] [place], [address] CO2 [Moles/Vol] 26.0 mmol/L Normal 21.0-32.0 [facility] Comment on above: Performed By: #### L 501.9520, L500.4050, L506.1000, L100.0100 #### [facility] [address] [place], [address] Creatinine [Mass/Vol] 1.46 mg/dL High 0.55-1.02 [facility] Comment on above: Result Comment: The validity of the calculated GFR GFRAA in patients over 70 years has not been determined. Clinical correlation is essential. Performed By: #### L 501.9520, L500.4050, L506.1000, L100.0100 #### [facility] [address] [place], [address] EST GFR - AA 43 mL/min Low >60 [facility] Comment on above: Result Comment: Afri can [place] GFR Calc Performed By: #### L 501.9520, L500.4050, L506.1000, L100.0100 #### [facility] [address] [place], [address] GAP 8 Normal 5-15 [facility] Comment on above: Performed By: #### L 501.9520, L500.4050, L506.1000, L100.0100 #### [facility] [address] [place], [address] GFR/1.73 sq M.predicted among non-blacks MDRD (S/P/Bld) [Vol rate/Area] 36 mL/min/{1.73_m2} Low >60 [facility] Comment on above: Result Comment: Non- GFR Calc Performed By: #### L 501.9520, L500.4050, L506.1000, L100.0100 #### [facility] [address] [place], [address] Globulin (S) [Mass/Vol] 4.1 g/dL Normal 2.2-4.2 [facility] Comment on above: Performed By: #### L 501.9520, L500.4050, L506.1000, L100.0100 #### [facility] [address] [place], [address] Glucose [Mass/Vol] 113 mg/dL High 74-106 [facility] Comment on above: Result Comment: Fast ing Glucose result from 100 to 125 mg/dL suggests IMPAIRED HOMEOSTASIS per A.D.A. criteria. Performed By: #### L 501.9520, L500.4050, L506.1000, L100.0100 #### [facility] [address] [place], [address] Potassium [Moles/Vol] 4.9 mmol/L Normal 3.5-5.1 [facility] Comment on above: Performed By: #### L 501.9520, L500.4050, L506.1000, L100.0100 #### [facility] [address] [place], [address] Sodium [Moles/Vol] 137 mmol/L Normal 136-145 [facility] Comment on above: Performed By: #### L 501.9520, L500.4050, L506.1000, L100.0100 #### [facility] [address] [place], [address] T PROT 7.5 g/dL Normal 6.4-8.2 [facility] Comment on above: Performed By: #### L 501.9520, L500.4050, L506.1000, L100.0100 #### [facility] [address] [place], [address] Urea nitrogen [Mass/Vol] 32 mg/dL High 7-18 [facility] Comment on above: Performed By: #### L 501.9520, L500.4050, L506.1000, L100.0100 #### [facility] [address] [place], [address] Eosinophil percentageOrdered By: Neville Serrano on 06-02-2024 Eosinophils/100 WBC (Bld) 3.6 % 0-5 [facility] Erythrocyte distribution wid th ratioOrdered By: Neville Serrano on 06-02-2024 Erythrocyte distribution width (RBC) [Ratio] 12.4 % 11.6-14.6 [facility] Erythrocyte distribution wid th standard deviationOrdered By: Neville Serrano on 06-02-2024 Erythrocyte distribution width (RBC) [Entitic vol] 40.8 fL 35.1-43.9 [facility] Estimated glomerular filtrat ion rate (GFR) AmericanOrdered By: Neville Serrano on 06-02-2024 Estimated GFR (MDRD) Amer 43 mL/min Low >60 [facility] Comment on above: GFR Calc Glomerular filtration rate ( GFR) estimationOrdered By: Neville Serrano on 06-02-2024 Estimated GFR (MDRD) Non-Af Amer 36 mL/min Low >60 [facility] Comment on above: Non- GFR Calc Glucose measurementOrdered B y: Neville Serrano on 06-02-2024 Glucose [Mass/Vol] 113 mg/dL High 74-106 [facility] Comment on above: Fasting Glucose resu lt from 100 to 125 mg/dL suggests IMPAIRED HOMEOSTASIS per A.D.A. criteria. Hematocrit Auto (Bld) [Volum e fraction]Ordered By: Neville Serrano on 06-02-2024 Hematocrit (Bld) [Volume fraction] 39.5 % 37-47 [facility] Hemoglobin measurementOrdere d By: Neville Serrano 06-02-2024 Hemoglobin (Bld) [Mass/Vol] 13.0 g/dL 12.0-15.0 [facility] Immature granulocytes/100 WB C Auto (Bld)Ordered By: Neville Serrano 06-02-2024 Immature granulocytes/100 WBC (Bld) 0.400 % 0.0-0.9 [facility] Comment on above: IG% - Immature Granu locytes (promyelocytes, myelocytes and metamyelocytes) > 1% indicates that a LEFT SHIFT is Present. Laboratory - Chemistry and C hemistry - challengeOrdered By: Neville Serrano on 06-02-2024 AST [Catalytic activity/Vol] 13 U/L Low 15-37 [facility] Lymphocytes Auto (Unsp spec) [#/Vol]Ordered By: Neville Serrano 06-02-2024 Lymphocytes (Bld) [#/Vol] 2.74 10*3/uL 0.83-4.51 [facility] Lymphocytes/100 WBC Auto (Un sp spec)Ordered By: Neville Serrano on 06-02-2024 Lymphocytes/100 WBC (Bld) 33.8 % 19-41 [facility] MCV (mean corpuscular volume ) determinationOrdered By: Neville Serrano on 06-02-2024 MCV (RBC) [Entitic vol] 90.0 fL 81-99 [facility] Mean corpuscular hemoglobin (MCH) determinationOrdered By: Neville Serrano on 06-02-2024 MCH (RBC) [Entitic mass] 29.6 pg 27.0-32.0 [facility] Mean corpuscular hemoglobin concentration (MCHC) determinationOrdered By: Neville Serrano on 06-02-2024 MCHC (RBC) [Mass/Vol] 32.9 g/dL 32-36 [facility] Mean platelet volume determi nationOrdered By: Neville Serrano on 06-02-2024 Platelet mean volume (Bld) [Entitic vol] 10.1 fL 6.2-12.0 [facility] Monocyte percentageOrdered B y: Neville Serrano on 06-02-2024 Monocytes/100 WBC (Bld) 8.9 % 0-10 [facility] Neutrophil percentageOrdered By: Neville Serrano on 06-02-2024 Neutrophils/100 WBC (Bld) 52.6 % 47-70 [facility] Nucleated red blood cell per centageOrdered By: Neville Serrano on 06-02-2024 Nucleated RBC/100 WBC (Bld) [Ratio] 0 % 0-5 [facility] Platelet countOrdered By: Loy Serrano on 06-02-2024 Platelets (Bld) [#/Vol] 288 10*3/uL 150-450 [facility] Potassium measurementOrdered By: Neville Serrano on 06-02-2024 Potassium [Moles/Vol] 4.9 mmol/L 3.5-5.1 [facility] RBC Auto (Bld) [#/Vol]Ordere d By: Neville Serrano on 06-02-2024 RBC (Bld) [#/Vol] 4.39 10*6/uL 4.2-5.4 [facility] Serum anion gap measurementO rdered By: Neville Serrano on 06-02-2024 Anion gap [Moles/Vol] 8 mmol/L 5-15 [facility] Serum globulin measurementOr dered By: Neville Serrano on 06-02-2024 Globulin (S) [Mass/Vol] 4.1 g/dL 2.2-4.2 [facility] Serum or plasma alanine gaspar otransferase (ALT) measurementOrdered By: Neville Serrano on 06-02-2024 ALT [Catalytic activity/Vol] 17 U/L 13-56 [facility] Serum or plasma albumin andreas urement (mass/volume)Ordered By: Neville Serrano on 06-02-2024 Albumin [Mass/Vol] 3.4 g/dL 3.2-5.0 [facility] Serum or plasma alkaline be sphatase measurementOrdered By: Neville Serrano on 06-02-2024 ALP [Catalytic activity/Vol] 87 U/L 45-117 [facility] Serum or plasma calcium andreas urement (mass/volume)Ordered By: Neville Serrano on 06-02-2024 Calcium [Mass/Vol] 9.1 mg/dL 8.5-10.1 [facility] Serum or plasma creatinine m easurement (mass/volume)Ordered By: Neville Serrano on 06-02-2024 Creatinine [Mass/Vol] 1.46 mg/dL High 0.55-1.02 [facility] Comment on above: The validity of the calculated GFR & GFRAA in patients over 70 years has not been determined. Clinical correlation is essential. Serum or plasma urea nitroge n measurement (mass/volume)Ordered By: Neville Serrano on 06-02-2024 Urea nitrogen [Mass/Vol] 32 mg/dL High 7-18 [facility] Sodium levelOrdered By: Neville Serrano on 06-02-2024 Sodium [Moles/Vol] 137 mmol/L 136-145 [facility] TSH QnOrdered By: Neville Serrano o n 06-02-2024 Thyroid Stimulating Hormone (TSH) 7.640 uIU/mL High 0.358-3.740 [facility] Thyroid Stim Hormone (TSH)on 06-02-2024 TSH 7.640 uIU/mL High 0.358-3.740 [facility] Comment on above: Performed By: #### L 500.4050, L506.1001, L100.0100, L501.9520 #### [facility] [address] [place], [address] Total proteinOrdered By: Neville Serrano on 06-02-2024 Protein [Mass/Vol] 7.5 g/dL 6.4-8.2 [facility] Vitamin D,25 Hydroxyon 06-02 Vitamin D 25-OH 24.4 ng/mL Normal [facility] Comment on above: Result Comment: [place] min D 25(OH) Status Range Deficiency <20 ng/mL (50nmol/L) Insufficiency 20 - 30 ng/mL (50 - 75 nmol/L) Sufficiency 30 - 100 ng/mL (75 - 250 nmol/L) Toxicity >100 ng/mL (>250 nmol/L) Performed By: #### L 501.9520, L500.4050, L506.1000, L100.0100 #### [facility] [address] [place], [address] White blood cell (WBC) count Ordered By: Neville Serrano on 06-02-2024 WBC (Bld) [#/Vol] 8.1 10*3/uL 4.4-11.0 [facility] Basic Metabolic Profile (BMP )on 05-04-2024 BUN/CRE 27.3 RATIO High 10-20 [facility] Comment on above: Performed By: #### L 500.2500 #### [facility] [address] [place], [address] CA,Total 8.9 mg/dL Normal 8.5-10.1 [facility] Comment on above: Performed By: #### L 500.2500 #### [facility] [address] [place], [address] Chloride [Moles/Vol] 103 mmol/L Normal 98-107 [facility] Comment on above: Performed By: #### L 500.2500 #### [facility] [address] [place], [address] CO2 [Moles/Vol] 27.0 mmol/L Normal 21.0-32.0 [facility] Comment on above: Performed By: #### L 500.2500 #### [facility] [address] [place], [address] Creatinine [Mass/Vol] 1.32 mg/dL High 0.55-1.02 [facility] Comment on above: Result Comment: The validity of the calculated GFR GFRAA in patients over 70 years has not been determined. Clinical correlation is essential. Performed By: #### L 500.2500 #### [facility] [address] [place], [address] EST GFR - AA 49 mL/min Low >60 [facility] Comment on above: Result Comment: Afri can [place] GFR Calc Performed By: #### L 500.2500 #### [facility] [address] [place], [address] GAP 8 Normal 5-15 [facility] Comment on above: Performed By: #### L 500.2500 #### [facility] [address] [place], [address] GFR/1.73 sq M.predicted among non-blacks MDRD (S/P/Bld) [Vol rate/Area] 40 mL/min/{1.73_m2} Low >60 [facility] [facility] Comment on above: Result Comment: Non- GFR Calc Performed By: #### L 500.2500 #### [facility] [address] [place], [address] Glucose [Mass/Vol] 109 mg/dL High 74-106 [facility] Comment on above: Result Comment: Fast ing Glucose result from 100 to 125 mg/dL suggests IMPAIRED HOMEOSTASIS per A.D.A. criteria. Performed By: #### L 500.2500 #### [facility] [address] [place], [address] Potassium [Moles/Vol] 4.1 mmol/L Normal 3.5-5.1 [facility] Comment on above: Performed By: #### L 500.2500 #### [facility] [address] [place], [place], [id number] Sodium [Moles/Vol] 138 mmol/L Normal 136-145 [facility] Comment on above: Performed By: #### L 500.2500 #### [facility] [address] [place], [place], [address] Urea nitrogen [Mass/Vol] 36 mg/dL High 7-18 [facility] Comment on above: Performed By: #### L 500.2500 #### [facility] [address] [place], [place], [id number] Blood urea nitrogen (BUN)/cr eatinine ratioOrdered By: Neville Serrano on 05-04-2024 Urea nitrogen/Creatinine [Mass ratio] 27.3 mg/mg High 10-20 [facility] Carbon dioxide measurementOr dered By: Neville Serrano on 05-04-2024 CO2 [Moles/Vol] 27.0 mmol/L 21.0-32.0 [facility] Chloride measurementOrdered By: Neville Serrano on 05-04-2024 Chloride [Moles/Vol] 103 mmol/L 98-107 [facility] Estimated glomerular filtrat ion rate (GFR) AmericanOrdered By: Neville Serrano on 05-04-2024 Estimated GFR (MDRD) Amer 49 mL/min Low >60 [facility] Comment on above: GFR Calc Glomerular filtration rate ( GFR) estimationOrdered By: Neville Serrano on 05-04-2024 Estimated GFR (MDRD) Non-Af Amer 40 mL/min Low >60 [facility] Comment on above: Non- GFR Calc Glucose measurementOrdered B y: Neville Serrano on 05-04-2024 Glucose [Mass/Vol] 109 mg/dL High 74-106 [facility] Comment on above: Fasting Glucose resu lt from 100 to 125 mg/dL suggests IMPAIRED HOMEOSTASIS per A.D.A. criteria. Potassium measurementOrdered By: Neville Serrano on 05-04-2024 Potassium [Moles/Vol] 4.1 mmol/L 3.5-5.1 [facility] Serum anion gap measurementO rdered By: Neville Serrano on 05-04-2024 Anion gap [Moles/Vol] 8 mmol/L 5-15 [facility] Serum or plasma calcium andreas urement (mass/volume)Ordered By: Neville Serrano on 05-04-2024 Calcium [Mass/Vol] 8.9 mg/dL 8.5-10.1 [facility] Serum or plasma creatinine m easurement (mass/volume)Ordered By: Neville Serrano on 05-04-2024 Creatinine [Mass/Vol] 1.32 mg/dL High 0.55-1.02 [facility] Comment on above: The validity of the calculated GFR & GFRAA in patients over 70 years has not been determined. Clinical correlation is essential. Serum or plasma urea nitroge n measurement (mass/volume)Ordered By: Neville Serrano on 05-04-2024 Urea nitrogen [Mass/Vol] 36 mg/dL High 7-18 [facility] Sodium levelOrdered By: Neville Serrano on 05-04-2024 Sodium [Moles/Vol] 138 mmol/L 136-145 [facility] Absolute neutrophil countOrd ered By: Antwon Peguero on 04-26-2024 Neutrophils (Bld) [#/Vol] 3.0 10*3/uL 2.0-7.7 [facility] Basic Metabolic Profile (BMP )on 04-26-2024 BUN/CRE 28.2 RATIO High 10-20 [facility] Comment on above: Performed By: #### L 500.2500, L100.0100 #### [facility] [address] [place], [address] CA,Total 8.2 mg/dL Low 8.5-10.1 [facility] Comment on above: Performed By: #### L 500.2500, L100.0100 #### [facility] [address] [place], [address] Chloride [Moles/Vol] 108 mmol/L High 98-107 [facility] Comment on above: Performed By: #### L 500.2500, L100.0100 #### [facility] [address] [place], [address] CO2 [Moles/Vol] 25.0 mmol/L Normal 21.0-32.0 [facility] Comment on above: Performed By: #### L 500.2500, L100.0100 #### [facility] [address] [place], [address] Creatinine [Mass/Vol] 1.17 mg/dL High 0.55-1.02 [facility] Comment on above: Result Comment: The validity of the calculated GFR GFRAA in patients over 70 years has not been determined. Clinical correlation is essential. Performed By: #### L 500.2500, L100.0100 #### [facility] [address] [place], [address] ECRCL 37.38 ml/min Normal [facility] Comment on above: Performed By: #### L 500.2500, L100.0100 #### [facility] [address] [place], [address] EST GFR - AA 56 mL/min Low >60 [facility] Comment on above: Result Comment: Afri can Cypriot GFR Calc Performed By: #### L 500.2500, L100.0100 #### [facility] [address] [place], [address] GAP 8 Normal 5-15 [facility] Comment on above: Performed By: #### L 500.2500, L100.0100 #### [facility] [address] [place], [address] GFR/1.73 sq M.predicted among non-blacks MDRD (S/P/Bld) [Vol rate/Area] 46 mL/min/{1.73_m2} Low >60 [facility] Comment on above: Result Comment: Non- GFR Calc Performed By: #### L 500.2500, L100.0100 #### [facility] [address] [place], [address] Glucose [Mass/Vol] 123 mg/dL High 74-106 [facility] Comment on above: Result Comment: Fast ing Glucose result from 100 to 125 mg/dL suggests IMPAIRED HOMEOSTASIS per A.D.A. criteria. Performed By: #### L 500.2500, L100.0100 #### [facility] [address] [place], [address] Potassium [Moles/Vol] 3.2 mmol/L Low 3.5-5.1 [facility] Comment on above: Performed By: #### L 500.2500, L100.0100 #### [facility] [address] [place], [address] Sodium [Moles/Vol] 140 mmol/L Normal 136-145 [facility] Comment on above: Performed By: #### L 500.2500, L100.0100 #### [facility] [address] [place], [address] Urea nitrogen [Mass/Vol] 33 mg/dL High 7-18 [facility] Comment on above: Performed By: #### L 500.2500, L100.0100 #### [facility] [address] [place], [address] Basophil percentageOrdered B y: Antwon ePguero on 04-26-2024 Basophils/100 WBC (Bld) 0.8 % 0-1 [facility] Blood urea nitrogen (BUN)/cr eatinine ratioOrdered By: Antwon Peguero on 04-26-2024 Urea nitrogen/Creatinine [Mass ratio] 28.2 mg/mg High 10-20 [facility] CBC W/Diff, Automatedon 04-05 Absolute Lymph 2.69 X10 3/uL Normal 0.83-4.51 [facility] Comment on above: Performed By: #### L 500.2500, L100.0100 #### [facility] [address] [place], [address] Absolute Neut 3.0 X10 3/uL Normal 2.0-7.7 [facility] Comment on above: Performed By: #### L 500.2500, L100.0100 #### [facility] [address] [place], [address] Basophils/100 WBC (Bld) 0.8 % Normal 0-1 [facility] Comment on above: Performed By: #### L 500.2500, L100.0100 #### [facility] [address] [place], [address] Eosinophils/100 WBC (Bld) 3.3 % Normal 0-5 [facility] Comment on above: Performed By: #### L 500.2500, L100.0100 #### [facility] [address] [place], [address] Erythrocyte distribution width (RBC) [Ratio] 13.0 % Normal 11.6-14.6 [facility] Comment on above: Performed By: #### L 500.2500, L100.0100 #### [facility] [address] [place], [address] Hematocrit (Bld) [Volume fraction] 36.5 % Low 37-47 [facility] Comment on above: Performed By: #### L 500.2500, L100.0100 #### [facility] [address] [place], [address] Hemoglobin (Bld) [Mass/Vol] 12.0 g/dL Normal 12.0-15.0 [facility] Comment on above: Performed By: #### L 500.2500, L100.0100 #### [facility] [address] [place], [address] IG% 0.200 Normal 0.0-0.9 [facility] Comment on above: Result Comment: IG% - Immature Granulocytes (promyelocytes, myelocytes and metamyelocytes) > 1% indicates that a LEFT SHIFT is Present. Performed By: #### L 500.2500, L100.0100 #### [facility] [address] [place], [address] Lymphocytes/100 WBC (Bld) 40.6 % Normal 19-41 [facility] Comment on above: Performed By: #### L 500.2500, L100.0100 #### [facility] [address] [place], [address] MCH (RBC) [Entitic mass] 29.7 pg Normal 27.0-32.0 [facility] Comment on above: Performed By: #### L 500.2500, L100.0100 #### [facility] [address] [place], [address] MCHC (RBC) [Mass/Vol] 32.9 g/dL Normal 32-36 [facility] Comment on above: Performed By: #### L 500.2500, L100.0100 #### [facility] [address] [place], [address] MCV (RBC) [Entitic vol] 90.3 fL Normal 81-99 [facility] Comment on above: Performed By: #### L 500.2500, L100.0100 #### [facility] [address] [place], [address] Monocytes/100 WBC (Bld) 10.0 % Normal 0-10 [facility] Comment on above: Performed By: #### L 500.2500, L100.0100 #### [facility] [address] [place], [address] Neutrophils/100 WBC (Bld) 45.1 % Low 47-70 [facility] Comment on above: Performed By: #### L 500.2500, L100.0100 #### [facility] [address] [place], [address] Nucleated RBC (Bld) [#/Vol] 0 10*3/uL Normal 0-5 [facility] Comment on above: Performed By: #### L 500.2500, L100.0100 #### [facility] [address] [place], [address] Platelet mean volume (Bld) [Entitic vol] 10.6 fL Normal 6.2-12.0 [facility] Comment on above: Performed By: #### L 500.2500, L100.0100 #### [facility] [address] [place], [address] Platelets (Bld) [#/Vol] 215 10*3/uL Normal 150-450 [facility] Comment on above: Performed By: #### L 500.2500, L100.0100 #### [facility] [address] [place], [address] RBC (Bld) [#/Vol] 4.04 10*6/uL Low 4.2-5.4 [facility] Comment on above: Performed By: #### L 500.2500, L100.0100 #### [facility] [address] [place], [address] RDW SD 43.3 fl Normal 35.1-43.9 [facility] Comment on above: Performed By: #### L 500.2500, L100.0100 #### [facility] [address] [place], [address] WBC (Bld) [#/Vol] 6.6 10*3/uL Normal 4.4-11.0 [facility] Comment on above: Performed By: #### L 500.2500, L100.0100 #### [facility] [address] [place], [address] Carbon dioxide measurementOr dered By: Antwon Peguero on 04-26-2024 CO2 [Moles/Vol] 25.0 mmol/L 21.0-32.0 [facility] Chloride measurementOrdered By: Antwon Peguero on 04-26-2024 Chloride [Moles/Vol] 108 mmol/L High 98-107 [facility] Discharge Instructionon 04-05 Discharge Instruction [facility] Medical Records Department [address] [place] [address] Instructions for Home/Discharge Instructions 04/26/24 1103 MR#: [id number] Acct: [id number] Name: EUGENIA MOMIN Rep #: [id number] : 1935 88 From: Tien Varma MD PCP: Dr. Neville Serrano MD Status:ADM IN Discharge Instructions DC O2, CPAP, BIPAP needs RN Home O2 Qualification: Home O2 Qualification: Is the patient on home oxygen No 04/26/24 11:06 Home O2 Qualification: AT REST 1- Pulse Ox at rest 97 04/26/24 11:06 Home O2 Qualification: WITH AMBULATION 1- Pulse Ox with ambulation 91 04/26/24 11:06 1- Oxygen Flow Rate with 0 04/26/24 11:06 ambulation PSN CPAP BiPAP: BiPAP CPAP Settings per PSN Fraction of Inspired Oxygen ( 93 04/25/24 04:58 FIO2) Home O2 Discharge instructions: No Follow Up Care Test Results: Test results from this visit will be discussed in further detail at your follow-up appointment, if applicable. Discharge Plan Admission Admit Date/Time: 04/25/24 06:31 Primary Reason for Your Visit: CHF exacerbation, right medial knee, upper tibia pain. Attending Provider: Tien Varma Primary Care Provider: Neville Serrano [employer] Providers: Jeovanny Bal; Antwon Peguero; Art Muro Instructions Additional Instructions / Restrictions: Hold spironolactone and losartan for hyperkalemia, serum potassium more than 5.1. Follow-up labs in 1 week with PCP. Discharge Orders/Prescriptions Prescriptions: New spironolactone 50 mg tablet 50 mg PO DAILY 30 Days Qty: 30 2RF Rx Instructions: Hold for serum potassium more than 5.0 magnesium oxide 400 mg magnesium tablet 400 mg PO DAILY 30 Days Qty: 30 0RF Continued levothyroxine 88 mcg tablet 88 mcg PO DAILY rosuvastatin 40 mg tablet 40 mg PO DAILY paroxetine HCl 40 mg tablet 40 mg PO DAILY aspirin 81 mg Tablet,Delayed Release (Dr/Ec) 81 mg PO BREAKFAST Qty: 30 2RF losartan 25 mg tablet 25 mg PO DAILY Qty: 90 3RF clopidogrel 75 mg tablet 75 mg PO DAILY Qty: 90 3RF metoprolol tartrate 25 mg tablet 25 mg PO BID Qty: 180 3RF Changed furosemide 40 mg tablet 40 mg PO BIDCM 30 Days Qty: 90 3RF Discontinued spironolactone 25 mg tablet See Rx Instructions .ROUTE .COMPLEX Qty: 45 3RF Dose Instruction: TAKE ONE-HALF TABLET(12.5 MG) ORALLY DAILY Rx Instructions: TAKE ONE-HALF TABLET(12.5 MG) ORALLY DAILY Referrals / Follow Up: Jeovanny Bal MD [Med Staff - Active Staff] - Within 1 Month Neville Serrano Chi, MD [Primary Care Provider] - Within 1 Week Disposition Disposition (needs filled in before D/C Order can be placed): Home, Self Care 04/26/24 1404 Tien Varma MD CC: Dr. Art Muro DO; Dr. Jeovanny Bal MD; Dr. Antwon Peguero MD; Dr. Neville Serrano MD Signed Normal [facility] Eosinophil percentageOrdered By: Antwon Peguero on 04-26-2024 Eosinophils/100 WBC (Bld) 3.3 % 0-5 [facility] Erythrocyte distribution wid th ratioOrdered By: Antwon Peguero on 04-26-2024 Erythrocyte distribution width (RBC) [Ratio] 13.0 % 11.6-14.6 [facility] Erythrocyte distribution wid th standard deviationOrdered By: Antwon Peguero on 04-26-2024 Erythrocyte distribution width (RBC) [Entitic vol] 43.3 fL 35.1-43.9 [facility] Estimated glomerular filtrat ion rate (GFR) AmericanOrdered By: Antwon Peguero on 04-26-2024 Estimated GFR (MDRD) Amer 56 mL/min Low >60 [facility] Comment on above: GFR Calc Estimation of creatinine sammi aranceOrdered By: Antwon Peguero on 04-26-2024 Estimated Creatinine Clearance Calc 37.38 ml/min [facility] Glomerular filtration rate ( GFR) estimationOrdered By: Antwon Peguero on 04-26-2024 Estimated GFR (MDRD) Non-Af Amer 46 mL/min Low >60 [facility] Comment on above: Non- GFR Calc Glucose measurementOrdered B y: Antwon Peguero on 04-26-2024 Glucose [Mass/Vol] 123 mg/dL High 74-106 [facility] Comment on above: Fasting Glucose resu lt from 100 to 125 mg/dL suggests IMPAIRED HOMEOSTASIS per A.D.A. criteria. Hematocrit Auto (Bld) [Volum e fraction]Ordered By: Antwon Peguero on 04-26-2024 Hematocrit (Bld) [Volume fraction] 36.5 % Low 37-47 [facility] Hemoglobin measurementOrdere d By: Antwon Peguero on 04-26-2024 Hemoglobin (Bld) [Mass/Vol] 12.0 g/dL 12.0-15.0 [facility] Immature granulocytes/100 WB C Auto (Bld)Ordered By: Antwon Peguero on 04-26-2024 Immature granulocytes/100 WBC (Bld) 0.200 % 0.0-0.9 [facility] Comment on above: IG% - Immature Granu locytes (promyelocytes, myelocytes and metamyelocytes) > 1% indicates that a LEFT SHIFT is Present. Knee 3 Viewson 04-26-2024 Knee 3 Views [facility] Imaging Services [address] [place], [place] [address] Knee 3 Views MR#: [id number] Acct: [id number] Name: EUGENIA MOMIN Rep #: [id number] : 1935 F 88 From: Joie louise MD PCP: Dr. Neville Serrano MD Status: ADM IN Study: Knee 3 Views Date of Exam: 04/26/24 Exam# [id number] Ordering Dr: Tien Varma MD [id number] HISTORY: right medial upper tibial pain. TECHNIQUE: XR Knee 3 Views. COMPARISON: None. FINDINGS: BONES : No acute fracture identified. Mineralization unremarkable. JOINTS: No dislocation. Mild degenerative change. Trace joint effusion. RAD/Knee 3 Views IMPRESSION: No acute fracture or dislocation identified in the right knee. Electronically Signed: Joie Salmon MD at 14:34 EST , CC: Dr. Tien Varma MD; Dr. Neville Serrano MD Medical Staff Director: Signed Normal [facility] Lymphocytes Auto (Unsp spec) [#/Vol]Ordered By: Antwon Peguero on 04-26-2024 Lymphocytes (Bld) [#/Vol] 2.69 10*3/uL 0.83-4.51 [facility] Lymphocytes/100 WBC Auto (Un sp spec)Ordered By: Antwon Peguero on 04-26-2024 Lymphocytes/100 WBC (Bld) 40.6 % 19-41 [facility] MCV (mean corpuscular volume ) determinationOrdered By: Antwon Peguero on 04-26-2024 MCV (RBC) [Entitic vol] 90.3 fL 81-99 [facility] Mean corpuscular hemoglobin (MCH) determinationOrdered By: Antwon Peguero on 04-26-2024 MCH (RBC) [Entitic mass] 29.7 pg 27.0-32.0 [facility] Mean corpuscular hemoglobin concentration (MCHC) determinationOrdered By: Antwon Peguero on 04-26-2024 MCHC (RBC) [Mass/Vol] 32.9 g/dL 32-36 [facility] Mean platelet volume determi nationOrdered By: Antwon Peguero on 04-26-2024 Platelet mean volume (Bld) [Entitic vol] 10.6 fL 6.2-12.0 [facility] Monocyte percentageOrdered B y: Antwon Peguero on 04-26-2024 Monocytes/100 WBC (Bld) 10.0 % 0-10 [facility] Neutrophil percentageOrdered By: Antwon Peguero on 04-26-2024 Neutrophils/100 WBC (Bld) 45.1 % Low 47-70 [facility] Nucleated red blood cell per centageOrdered By: Antwon Peguero on 04-26-2024 Nucleated RBC/100 WBC (Bld) [Ratio] 0 % 0-5 [facility] Platelet countOrdered By: Arline Peguero on 04-26-2024 Platelets (Bld) [#/Vol] 215 10*3/uL 150-450 [facility] Potassium measurementOrdered By: Antwon Peguero on 04-26-2024 Potassium [Moles/Vol] 3.2 mmol/L Low 3.5-5.1 [facility] RBC Auto (Bld) [#/Vol]Ordere d By: Antwon Peguero on 04-26-2024 RBC (Bld) [#/Vol] 4.04 10*6/uL Low 4.2-5.4 [facility] Serum anion gap measurementO rdered By: Antwon Peguero on 04-26-2024 Anion gap [Moles/Vol] 8 mmol/L 5-15 [facility] Serum or plasma calcium andreas urement (mass/volume)Ordered By: Antwon Peguero on 04-26-2024 Calcium [Mass/Vol] 8.2 mg/dL Low 8.5-10.1 [facility] Serum or plasma creatinine m easurement (mass/volume)Ordered By: Antwon Peguero on 04-26-2024 Creatinine [Mass/Vol] 1.17 mg/dL High 0.55-1.02 [facility] Comment on above: The validity of the calculated GFR & GFRAA in patients over 70 years has not been determined. Clinical correlation is essential. Serum or plasma urea nitroge n measurement (mass/volume)Ordered By: Antwon Peguero on 04-26-2024 Urea nitrogen [Mass/Vol] 33 mg/dL High 7-18 [facility] Sodium levelOrdered By: Norm Peguero on 04-26-2024 Sodium [Moles/Vol] 140 mmol/L 136-145 [facility] Venous Duplex US - Pedro Extre mon 04-26-2024 Venous Duplex US - Pedro Extrem [facility] Cardiovascular Services [address] [place] [address] Venous Duplex US - Pedro Extrem 04/26/24 1040 MR#: [id number] Acct: [id number] Name: EUGENIA MOMIN Rep #: [id number] : 1935 88 From: Zi Turner MD Attending Dr: Dr. Tien Varma MD Status: DIS IN Ordering Dr: Tien Varma MD Date: 04/26/24 [place] [facility] [place] Sex: F C Admitted: 04/25/24 Reason For Study: LLE Pain RIGHT LEFT GSV is normal. GSV is normal. CFV is compressible, spontaneous, phasic, CFV is compressible, spontaneous, phasic, competent and demonstrates normal competent, and demonstrates normal augmentation. augmentation. FV is compressible, spontaneous, phasic, FV is compressible, spontaneous, phasic, competent and demonstrates normal competent and demonstrates normal augmentation. augmentation. POP V is compressible, spontaneous, phasic, POP V is compressible, spontaneous, phasic, competent and demonstrates normal competent and demonstrates normal augmentation. augmentation. T/P Trunk is compressible. T/P Trunk is compressible. PTV is compressible. PTV is compressible. RT PerV is compressible. LT PerV is compressible. Procedure This is a venous duplex using B-mode, color flow and spectral Doppler. Exam performed in department. The exam was diagnostic. A preliminary report was called and/or faxed to [facility]. VL/Venous Duplex US - Pedro Extrem Interpretation Summary Deep veins of the lower extremities are bilaterally patent and compressible segmentally. There is no evidence of deep vein thrombosis on either side. Valvular competence appears intact within the proximal deep venous systems bilaterally. The great saphenous veins appear bilaterally patent and compressible segmentally. Ordering Physician: Tien Varma Referring Physician: Mack Jeffers Performed By: Robby Lewis, RVT 04/27/241732 Date Zi Turner MD CC: Dr. Antwon Peguero MD; Dr. Tien Varma MD; Dr. Neville Serrano MD Date Dictated: 04/26/24 1040 Date Transcribed: 04/27/241732 Medical Staff Director: Signed Normal [facility] White blood cell (WBC) count Ordered By: Antwon Peguero on 04-26-2024 WBC (Bld) [#/Vol] 6.6 10*3/uL 4.4-11.0 [facility] 12 Lead EKGon 04-25-2024 12 Lead EKG [facility] Cardiovascular Services [address] [place] [address] 12 Lead EKG 04/25/24 0501 MR#: [id number] Acct: [id number] Name: EUGENIA MOMIN Rep #: [id number] : 1935 88 From: Jeovanny Bal MD Attending Dr: Dr. Tien Varma MD Status: ADM IN Ordering Dr: Lucio Fonseca DO Date: 04/25/24 Location: [facility] [place] Sex: F C Admitted: 04/25/24 Test Reason : SOB Blood Pressure : */* mmHG Vent. Rate : 87 BPM Atrial Rate : 87 BPM P-R Int : 184 ms QRS Dur : 86 ms QT Int : 392 ms P-R-T Axes : 54 84 79 degrees QTcB Int : 471 ms Normal sinus rhythm Nonspecific ST abnormality Abnormal ECG Confirmed by VALERIANO BINGHAM, JEOVANNY ([id number]), news copy editor EMILY CAMPO ([id number]) on 04/26/2024 6:33:49 AM Referred By: Antwon Peguero Confirmed By: JEOVANNY BAL MD 04/26/24 0633 Date Jeovanny Bal MD CC: Dr. Lucio Fonseca DO; Dr. Antwon Peguero MD; Dr. Tien Varma MD; Dr. Neville Serrano MD Signed Normal [facility] BNP (brain natriuretic pepti de measurement)Ordered By: Lucio Fonseca on 04-25-2024 Natriuretic peptide B (Bld) [Mass/Vol] 228.3 pg/mL High 0-100 [facility] BNP,B-Type NATRIURETIC PEPTI Omar 04-25-2024 Natriuretic peptide B (Bld) [Mass/Vol] 228.3 pg/mL High 0-100 [facility] Comment on above: Performed By: #### L 500.4050, L506.1001, L100.0100, L501.9520 #### [facility] [address] [place], [address] Basic Metabolic Profile (BMP )on 04-25-2024 BUN/CRE 24.5 RATIO High 10-20 [facility] Comment on above: Order Comment: 'TROP ' Serial specimen #1, #2 or #3: 1 Performed By: #### L 500.4050, L506.1001, L100.0100, L501.9520 #### [facility] [address] [place], [address] CA,Total 8.4 mg/dL Low 8.5-10.1 [facility] Comment on above: Order Comment: 'TROP ' Serial specimen #1, #2 or #3: 1 Performed By: #### L 500.4050, L506.1001, L100.0100, L501.9520 #### [facility] [address] [place], [address] Chloride [Moles/Vol] 111 mmol/L High 98-107 [facility] Comment on above: Order Comment: 'TROP ' Serial specimen #1, #2 or #3: 1 Performed By: #### L 500.4050, L506.1001, L100.0100, L501.9520 #### [facility] [address] [place], [address] CO2 [Moles/Vol] 22.0 mmol/L Normal 21.0-32.0 [facility] Comment on above: Order Comment: 'TROP ' Serial specimen #1, #2 or #3: 1 Performed By: #### L 500.4050, L506.1001, L100.0100, L501.9520 #### [facility] [address] [place], [address] Creatinine [Mass/Vol] 1.39 mg/dL High 0.55-1.02 [facility] Comment on above: Order Comment: 'TROP ' Serial specimen #1, #2 or #3: 1 Result Comment: The validity of the calculated GFR GFRAA in patients over 70 years has not been determined. Clinical correlation is essential. Performed By: #### L 500.4050, L506.1001, L100.0100, L501.9520 #### [facility] [address] [place], [address] ECRCL 31.37 ml/min Normal [facility] Comment on above: Order Comment: 'TROP ' Serial specimen #1, #2 or #3: 1 Performed By: #### L 500.4050, L506.1001, L100.0100, L501.9520 #### [facility] [address] [place], [address] EST GFR - AA 46 mL/min Low >60 [facility] Comment on above: Order Comment: 'TROP ' Serial specimen #1, #2 or #3: 1 Result Comment: Afri can Cypriot GFR Calc Performed By: #### L 500.4050, L506.1001, L100.0100, L501.9520 #### [facility] [address] [place], [address] GAP 5 Normal 5-15 [facility] Comment on above: Order Comment: 'TROP ' Serial specimen #1, #2 or #3: 1 Performed By: #### L 500.4050, L506.1001, L100.0100, L501.9520 #### [facility] [address] [place], [address] GFR/1.73 sq M.predicted among non-blacks MDRD (S/P/Bld) [Vol rate/Area] 38 mL/min/{1.73_m2} Low >60 [facility] Comment on above: Order Comment: 'TROP ' Serial specimen #1, #2 or #3: 1 Result Comment: Non- GFR Calc Performed By: #### L 500.4050, L506.1001, L100.0100, L501.9520 #### [facility] [address] [place], [address] Glucose [Mass/Vol] 134 mg/dL High 74-106 [facility] Comment on above: Order Comment: 'TROP ' Serial specimen #1, #2 or #3: 1 Result Comment: Fast ing Glucose result greater than or equal to 126 mg/dL suggests DIABETES MELLITUS per A.D.A. criteria. Performed By: #### L 500.4050, L506.1001, L100.0100, L501.9520 #### [facility] [address] [place], [address] Potassium [Moles/Vol] 4.1 mmol/L Normal 3.5-5.1 [facility] Comment on above: Order Comment: 'TROP ' Serial specimen #1, #2 or #3: 1 Performed By: #### L 500.4050, L506.1001, L100.0100, L501.9520 #### [facility] [address] [place], [address] Sodium [Moles/Vol] 138 mmol/L Normal 136-145 [facility] Comment on above: Order Comment: 'TROP ' Serial specimen #1, #2 or #3: 1 Performed By: #### L 500.4050, L506.1001, L100.0100, L501.9520 #### [facility] [address] [place], [address] Urea nitrogen [Mass/Vol] 34 mg/dL High 7-18 [facility] Comment on above: Order Comment: 'TROP ' Serial specimen #1, #2 or #3: 1 Performed By: #### L 500.4050, L506.1001, L100.0100, L501.9520 #### [facility] [address] [place], [address] Bilirubin, totalOrdered By: Lucio Fonseca on 04-25-2024 Bilirubin [Mass/Vol] 0.30 mg/dL 0.20-1.00 [facility] Comment on above: For patients on eltr ombopag therapy, use of Dimension [place] TBIL is not recommended. Bilirubin.direct [Mass/Vol]O rdered By: Lucio Fonseac on 04-25-2024 Direct Bilirubin < 0.05 mg/dL 0.00-0.30 [facility] CBC W/Diff, Automatedon 04-05 Absolute Lymph 1.24 X10 3/uL Normal 0.83-4.51 [facility] Comment on above: Performed By: #### L 500.4050, L506.1001, L100.0100, L501.9520 #### [facility] [address] [place], [address] Absolute Neut 7.5 X10 3/uL Normal 2.0-7.7 [facility] Comment on above: Performed By: #### L 500.4050, L506.1001, L100.0100, L501.9520 #### [facility] [address] [place], [address] Basophils/100 WBC (Bld) 0.6 % Normal 0-1 [facility] Comment on above: Performed By: #### L 500.4050, L506.1001, L100.0100, L501.9520 #### [facility] [address] [place], [address] Eosinophils/100 WBC (Bld) 1.6 % Normal 0-5 [facility] Comment on above: Performed By: #### L 500.4050, L506.1001, L100.0100, L501.9520 #### [facility] [address] [place], [address] Erythrocyte distribution width (RBC) [Ratio] 12.8 % Normal 11.6-14.6 [facility] Comment on above: Performed By: #### L 500.4050, L506.1001, L100.0100, L501.9520 #### [facility] [address] [place], [address] Hematocrit (Bld) [Volume fraction] 40.1 % Normal 37-47 [facility] Comment on above: Performed By: #### L 500.4050, L506.1001, L100.0100, L501.9520 #### [facility] [address] [place], [address] Hemoglobin (Bld) [Mass/Vol] 13.0 g/dL Normal 12.0-15.0 [facility] Comment on above: Performed By: #### L 500.4050, L506.1001, L100.0100, L501.9520 #### [facility] [address] [place], [address] IG% 0.400 Normal 0.0-0.9 [facility] Comment on above: Result Comment: IG% - Immature Granulocytes (promyelocytes, myelocytes and metamyelocytes) > 1% indicates that a LEFT SHIFT is Present. Performed By: #### L 500.4050, L506.1001, L100.0100, L501.9520 #### [facility] [address] [place], [address] Lymphocytes/100 WBC (Bld) 13.2 % Low 19-41 [facility] Comment on above: Performed By: #### L 500.4050, L506.1001, L100.0100, L501.9520 #### [facility] [address] [place], [address] MCH (RBC) [Entitic mass] 30.0 pg Normal 27.0-32.0 [facility] Comment on above: Performed By: #### L 500.4050, L506.1001, L100.0100, L501.9520 #### [facility] [address] [place], [address] MCHC (RBC) [Mass/Vol] 32.4 g/dL Normal 32-36 [facility] Comment on above: Performed By: #### L 500.4050, L506.1001, L100.0100, L501.9520 #### [facility] [address] [place], [address] MCV (RBC) [Entitic vol] 92.4 fL Normal 81-99 [facility] Comment on above: Performed By: #### L 500.4050, L506.1001, L100.0100, L501.9520 #### [facility] [address] [place], [address] Monocytes/100 WBC (Bld) 5.0 % Normal 0-10 [facility] Comment on above: Performed By: #### L 500.4050, L506.1001, L100.0100, L501.9520 #### [facility] [address] [place], [address] Neutrophils/100 WBC (Bld) 79.2 % High 47-70 [facility] Comment on above: Performed By: #### L 500.4050, L506.1001, L100.0100, L501.9520 #### [facility] [address] [place], [address] Nucleated RBC (Bld) [#/Vol] 0 10*3/uL Normal 0-5 [facility] Comment on above: Performed By: #### L 500.4050, L506.1001, L100.0100, L501.9520 #### [facility] [address] [place], [address] Platelet mean volume (Bld) [Entitic vol] 10.3 fL Normal 6.2-12.0 [facility] Comment on above: Performed By: #### L 500.4050, L506.1001, L100.0100, L501.9520 #### [facility] [address] [place], [address] Platelets (Bld) [#/Vol] 231 10*3/uL Normal 150-450 [facility] Comment on above: Performed By: #### L 500.4050, L506.1001, L100.0100, L501.9520 #### [facility] [address] [place], [address] RBC (Bld) [#/Vol] 4.34 10*6/uL Normal 4.2-5.4 [facility] Comment on above: Performed By: #### L 500.4050, L506.1001, L100.0100, L501.9520 #### [facility] [address] [place], [address] RDW SD 44.0 fl High 35.1-43.9 [facility] Comment on above: Performed By: #### L 500.4050, L506.1001, L100.0100, L501.9520 #### [facility] [address] [place], [address] WBC (Bld) [#/Vol] 9.4 10*3/uL Normal 4.4-11.0 [facility] Comment on above: Performed By: #### L 500.4050, L506.1001, L100.0100, L501.9520 #### [facility] [address] [place], [address] Chest 1 View (Portable)on Chest 1 View (Portable) [facility] Services [address] [place] [address] Chest 1 View (Portable) MR#: [id number] Acct: [id number] Name: EUGENIA MOMIN Rep #: [id number] : 1935 F 88 From: Wayne Zhou MD PCP: Dr. Neville Serrano MD Status: REG ER Study: Chest 1 View (Portable) Date of Exam: 04/25/24 Exam# [id number] Ordering Dr: Lucio Fonseca DO [id number] EXAM: XR CHEST, 1 VIEW CLINICAL INDICATION: chf TECHNIQUE: Frontal view of the chest. COMPARISON: Single view chest 08/13/2023 FINDINGS: LUNGS AND PLEURAL SPACES: Central pulmonary vascular congestion and diffuse pulmonary edema with small pleural effusions. No pneumothorax. HEART: Mild enlargement of the cardiac silhouette. MEDIASTINUM: Central airways and mediastinal contour are unremarkable. BONES/JOINTS: Unremarkable. No acute fracture. SOFT TISSUES: Unremarkable. RAD/Chest 1 View (Portable) IMPRESSION: CHF changes. Electronically Signed: Wayne Zhou MD at 5:44 EST , CC: Dr. Lucio Fonseca DO; Dr. Neville Serrano MD Medical Staff Director: Signed Normal [facility] Emergency Department Summary on 04-25-2024 Emergency Department Summary [facility] Medical Records Department [address] [place] [address] Emergency Department Summary 04/25/24 MR#: [id number] Acct: [id number] Name: EUGENIA MOMIN Rep #: [id number] : 1935 88 From: Lucio Fonseca DO PCP: Dr. Neville Serrano MD Status:ADM IN Location: [place] [address] HPI History of Present Illness Chief Complaint: Shortness of Breath Informant: patient and EMS Narrative Narrative: 88-year-old female history of hypertension CHF CKD CAD presenting to the emergency department with dyspnea. Patient states that earlier today she felt in her normal state of health. When she went to bed she had felt fine. She woke tonight feeling short of breath. She notes no change in her chronic cough. Patient feels a tightness in her chest but no pain. She does not wear home oxygen. She notes that she takes Lasix and spironolactone. She notes swelling of her legs but does not feel they are any different than normal. No reported fevers. Chronically has rhinorrhea. Patient does not regularly weigh herself. [facility] Medical History (HFpEF) heart failure with preserved ejection fraction Arteriosclerotic coronary artery disease Mitral regurgitation Non-smoker Myocardial infarct Hypertension Obesity Anxiety and depression CKD (chronic kidney disease), stage III Hypothyroidism HLD (hyperlipidemia) CHF (congestive heart failure) Home Medications ???Medication ???Instructions ???Recorded ???Last Taken ???Type paroxetine HCl 40 mg tablet 40 mg PO DAILY mental health 08/11/22 02/27/23 History aspirin 81 mg tablet,delayed 81 mg PO BREAKFAST heart health 08/13/22 02/28/23 Rx release #30 tabs levothyroxine 88 mcg tablet 88 mcg PO DAILY thyroid 08/22/22 02/27/23 History rosuvastatin 40 mg tablet 40 mg PO DAILY 06/24/23 Unknown History losartan 25 mg tablet 25 mg PO DAILY #90 tabs 07/01/23 Unknown Rx furosemide 40 mg tablet 40 mg PO DAILY diuretic #90 tabs 08/12/23 Unknown Rx spironolactone 25 mg tablet See Rx Instructions .Route 08/12/23 Unknown Rx .COMPLEX #45 tabs clopidogrel 75 mg tablet 75 mg PO DAILY #90 tabs 02/12/24 Unknown Rx metoprolol tartrate 25 mg tablet 25 mg PO BID #180 tabs 03/29/24 Unknown Rx Allergy/AdvReac Type Severity Reaction Status Date / Time amlodipine Allergy Unknown PT UNSURE Verified 04/25/24 05:05 OF REACTION lisinopril AdvReac Intermediate Dry, Verified 01/09/24 08:56 hacking, constant cough atenolol AdvReac Abd Verified 01/09/24 08:56 cramps/diarrhea Family History Mother Heart disease Hypertension CHF (congestive heart failure) Father Heart disease Hypertension CHF (congestive heart failure) CAD (coronary artery disease) Myocardial infarction Surgical History Stented coronary artery (03/03/23) History of carpal tunnel release History of tonsillectomy and adenoidectomy Social History household members: none Smoking Status: Never smoker alcohol intake: never substance use type: does not use ROS ROS ED Constitutional Constitutional ED: Denies chills, fever(s) or weight loss Eyes Eyes: Denies change in vision or diplopia ENT ENT ED: Reports rhinorrhea; Denies ear pain or sore throat Cardiovascular Cardiovascular: Denies chest pain, orthopnea, palpitations or racing heartbeat Respiratory/Chest Respiratory/Chest: Reports cough, dyspnea and dyspnea on exertion; Denies orthopnea Gastrointestinal Gastrointestinal: Denies abdominal pain, diarrhea, nausea or vomiting Genitourinary Genitourinary ED: Denies dysuria, hematuria or urinary frequency Musculoskeletal Musculoskeletal: Denies arthralgias or myalgias Integumentary Denies abscess or rash Neurologic Neurologic: Denies headache(s) or weakness Psychiatric Psychiatric: Denies anxiety, depression, suicidal ideation or suicidal thoughts Endocrine Endocrinology: Denies polydipsia, polyphagia or polyuria Allergic/Immunologic Allergic/Immunologic ED: Denies mouth swelling, tongue swelling or urticaria EXAM Physical Exam Const Vital Signs: 04/25/24 04:08 04/25/24 04:09 04/25/24 04:13 Temperature 98.1 F Temperature Source Oral Pulse Rate 101 H Respiratory Rate 27 H Respiratory Effort Normal Non-Labored Respiratory Depth Shallow Respiratory Pattern Tachypnea Blood Pressure 172/73 H Blood Pressure Mean 106 Pulse Ox 91 83 Oxygen Delivery Method Nasal Cannula Room Air Nasal Cannula Oxygen Flow Rate (L/min) 4 Fraction of Inspired Oxygen (FIO2) 4 04/25/24 04:58 Temperature Temperature Source Pulse Rate Respirato (more content not included)... Normal [facility] H AND P Exam - Hospitaliston 04-25-2024 H&P Exam - Hospitalist [facility] Medical Records Department [address] [place] [address] H P Exam - Hospitalist 04/25/24 06 MR#: [id number] Acct: [id number] Name: EUGENIA MOMIN Rep #: [id number] : 1935 88 From: Antwon Peguero MD PCP: Dr. Neville Serrano MD Status:REG ER Location: ED HPI - General HPI Narrative EUGENIA MOMIN, is a 88 F who presents to the hospital with increasing shortness of breath. She has a history of chronic diastolic CHF and was found to have an elevated BNP to 228. In the ER she had a chest x-ray which demonstrated volume overload and she was given a dose of IV Lasix. She is currently requiring 3 L nasal cannula while at rest as she was hypoxic down to 83% on room air. Her last echo was in July 2023 with an EF of 50% and stage I diastolic dysfunction. she had had a cardiac catheterization in February 2023 with WILY placed to proximal LAD. She did have a troponin drawn which was 39 and her renal function appears to be at baseline with a creatinine of 1.39. [facility] Medical History (HFpEF) heart failure with preserved ejection fraction Arteriosclerotic coronary artery disease Mitral regurgitation Non-smoker Myocardial infarct Hypertension Obesity Anxiety and depression CKD (chronic kidney disease), stage III Hypothyroidism HLD (hyperlipidemia) CHF (congestive heart failure) Home Medications ???Medication ???Instructions ???Recorded ???Last Taken ???Type paroxetine HCl 40 mg tablet 40 mg PO DAILY mental health 08/11/22 02/27/23 History aspirin 81 mg tablet,delayed 81 mg PO BREAKFAST heart health 08/13/22 02/28/23 Rx release #30 tabs levothyroxine 88 mcg tablet 88 mcg PO DAILY thyroid 08/22/22 02/27/23 History rosuvastatin 40 mg tablet 40 mg PO DAILY 06/24/23 Unknown History losartan 25 mg tablet 25 mg PO DAILY #90 tabs 07/01/23 Unknown Rx furosemide 40 mg tablet 40 mg PO DAILY diuretic #90 tabs 08/12/23 Unknown Rx spironolactone 25 mg tablet See Rx Instructions .Route 08/12/23 Unknown Rx .COMPLEX #45 tabs clopidogrel 75 mg tablet 75 mg PO DAILY #90 tabs 02/12/24 Unknown Rx metoprolol tartrate 25 mg tablet 25 mg PO BID #180 tabs 03/29/24 Unknown Rx Allergy/AdvReac Type Severity Reaction Status Date / Time amlodipine Allergy Unknown PT UNSURE Verified 04/25/24 05:05 OF REACTION lisinopril AdvReac Intermediate Dry, Verified 01/09/24 08:56 hacking, constant cough atenolol AdvReac Abd Verified 01/09/24 08:56 cramps/diarrhea Family History Mother Heart disease Hypertension CHF (congestive heart failure) Father Heart disease Hypertension CHF (congestive heart failure) CAD (coronary artery disease) Myocardial infarction Surgical History Stented coronary artery (03/03/23) History of carpal tunnel release History of tonsillectomy and adenoidectomy Social History household members: none Smoking Status: Never smoker alcohol intake: never substance use type: does not use ROS Constitutional Constitutional: Denies chills, fatigue, fever(s) or malaise Eyes Eyes: Denies blurry vision ENT HEENT: Denies headache(s) or nasal discharge Cardiovascular Cardiovascular: Denies chest pain, dyspnea on exertion or syncope Respiratory/Chest Respiratory/Chest: Reports shortness of breath at rest; Denies cough or shortness of breath with exertion Gastrointestinal Gastrointestinal: Denies constipation, diarrhea, nausea or vomiting Genitourinary Genitourinary: Denies dysuria Neurologic Neurologic: Denies focal weakness, numbness or tremor(s) Psychiatric Psychiatric: Denies anxiety or depression Vital Signs Vital Signs Vital Signs: 04/25/24 04:08 04/25/24 04:09 04/25/24 04:13 Temperature 98.1 F Temperature Source Oral Pulse Rate 101 H Respiratory Rate 27 H Respiratory Effort Normal Non-Labored Respiratory Depth Shallow Respiratory Pattern Tachypnea Blood Pressure 172/73 H Blood Pressure Mean 106 Pulse Ox 91 83 Oxygen Delivery Method Nasal Cannula Room Air Nasal Cannula Oxygen Flow Rate (L/min) 4 Fraction of Inspired Oxygen (FIO2) 4 04/25/24 04:58 Temperature Temperature Source Pulse Rate Respiratory Rate Respiratory Effort Respiratory Depth Respiratory Pattern Blood Pressure Blood Pressure Mean Pulse Ox Oxygen Delivery Method Nasal Cannula Oxygen Flow Rate (L/min) 3 Fraction of Inspired Oxygen (FIO2) 93 Weight Weight: 218 lb 4.122 oz Body Mass Index (BMI) 38.6 Physical Exam Narrative general: Alert, Oriented x3, Cooperative, No appare (more content not included)... Normal [facility] L501.4020on 04-25-2024 TROPONIN-I HS 39 pg/mL Normal 3.0-54.0 [facility] Comment on above: Order Comment: 'TROP ' Serial specimen #1, #2 or #3: 1 Result Comment: Plegilberto quiñonez Note: New Test Units and Gender Specific Reference Ranges. For more information see Policy Stat Procedure [place] High Sensitivity Troponin (TNIH) and attachments. Performed By: #### L 500.4050, L506.1001, L100.0100, L501.9520 #### [facility] [address] [place], [address] Laboratory - Chemistry and C hemistry - challengeOrdered By: Lucio Fonseca on 04-25-2024 AST [Catalytic activity/Vol] 18 U/L 15-37 [facility] Liver Profileon 04-25-2024 Albumin [Mass/Vol] 3.2 g/dL Normal 3.2-5.0 [facility] Comment on above: Order Comment: 'TROP ' Serial specimen #1, #2 or #3: 1 Performed By: #### L 500.4050, L506.1001, L100.0100, L501.9520 #### [facility] [address] [place], [address] ALK P 76 U/L Normal 45-117 [facility] Comment on above: Order Comment: 'TROP ' Serial specimen #1, #2 or #3: 1 Performed By: #### L 500.4050, L506.1001, L100.0100, L501.9520 #### [facility] [address] [place], [address] ALT [Catalytic activity/Vol] 21 U/L Normal 13-56 [facility] Comment on above: Order Comment: 'TROP ' Serial specimen #1, #2 or #3: 1 Performed By: #### L 500.4050, L506.1001, L100.0100, L501.9520 #### [facility] [address] [place], [address] AST [Catalytic activity/Vol] 18 U/L Normal 15-37 [facility] Comment on above: Order Comment: 'TROP ' Serial specimen #1, #2 or #3: 1 Performed By: #### L 500.4050, L506.1001, L100.0100, L501.9520 #### [facility] [address] [place], [address] Bilirubin [Mass/Vol] 0.30 mg/dL Normal 0.20-1.00 [facility] Comment on above: Order Comment: 'TROP ' Serial specimen #1, #2 or #3: 1 Result Comment: For patients on eltrombopag therapy, use of Dimension [place] TBIL is not recommended. Performed By: #### L 500.4050, L506.1001, L100.0100, L501.9520 #### [facility] [address] [place], [address] D BILI < 0.05 Normal 0.00-0.30 [facility] Comment on above: Order Comment: 'TROP ' Serial specimen #1, #2 or #3: 1 Performed By: #### L 500.4050, L506.1001, L100.0100, L501.9520 #### [facility] [address] [place], [address] Globulin (S) [Mass/Vol] 3.4 g/dL Normal 2.2-4.2 [facility] Comment on above: Order Comment: 'TROP ' Serial specimen #1, #2 or #3: 1 Performed By: #### L 500.4050, L506.1001, L100.0100, L501.9520 #### [facility] [address] [place], [address] T PROT 6.6 g/dL Normal 6.4-8.2 [facility] Comment on above: Order Comment: 'TROP ' Serial specimen #1, #2 or #3: 1 Performed By: #### L 500.4050, L506.1001, L100.0100, L501.9520 #### [facility] [address] [place], [address] Serum globulin measurementOr dered By: Lucio Fonseca on 04-25-2024 Globulin (S) [Mass/Vol] 3.4 g/dL 2.2-4.2 [facility] Serum or plasma alanine gaspar otransferase (ALT) measurementOrdered By: Lucio Fonseca on 04-25-2024 ALT [Catalytic activity/Vol] 21 U/L 13-56 [facility] Serum or plasma albumin andreas urement (mass/volume)Ordered By: Lucio Fonseca on 04-25-2024 Albumin [Mass/Vol] 3.2 g/dL 3.2-5.0 [facility] Serum or plasma alkaline be sphatase measurementOrdered By: Lucio Aguirreehne on 04-25-2024 ALP [Catalytic activity/Vol] 76 U/L 45-117 [facility] Total proteinOrdered By: Andrei tena [place] on 04-25-2024 Protein [Mass/Vol] 6.6 g/dL 6.4-8.2 [facility] Troponin IOrdered By: Lucio Raymundo on 04-25-2024 Troponin I High Sensitivity 39 pg/mL 3.0-54.0 [facility] Comment on above: Please Note: New Teresa t Units and Gender Specific Reference Ranges. For more information see Policy Stat Procedure [place] High Sensitivity Troponin (TNIH) and attachments. Absolute lymphocyte countOrd ered By: Lucio Aguirreehne on 08-13-2023 Lymphocytes Auto (Unsp spec) [#/Vol] 1.54 10*3/uL 0.83-4.51 [facility] Automated lymphocyte count a s percentage of total leukocytesOrdered By: Lucio Raymundo on 08-13-2023 Lymphocytes/100 WBC Auto (Unsp spec) 24.2 % 19-41 [facility] Basophil percentageOrdered B y: Lucio Aguirreehne on 08-13-2023 Basophil percentage 0 SEEN /hpf 0-5 [facility] Basophils/100 WBC (Bld) 0.6 % 0-1 [facility] Bilirubin [Mass/Vol] 0.50 mg/dL 0.20-1.00 [facility] Comment on above: For patients on eltr ombopag therapy, use of Dimension [place] TBIL is not recommended. Chloride [Moles/Vol] 105 mmol/L 98-107 [facility] Eosinophils/100 WBC (Bld) 0.8 % 0-5 [facility] Glucose [Mass/Vol] 150 mg/dL 74-106 [facility] Comment on above: Fasting Glucose resu lt greater than or equal to 126 mg/dL suggests DIABETES MELLITUS per A.D.A. criteria. Hemoglobin (Bld) [Mass/Vol] 12.6 g/dL 12.0-15.0 [facility] Monocytes/100 WBC (Bld) 5.7 % 0-10 [facility] Neutrophils (Bld) [#/Vol] 4.4 10*3/uL 2.0-7.7 [facility] Neutrophils/100 WBC (Bld) 68.4 % 47-70 [facility] Potassium [Moles/Vol] 3.5 mmol/L 3.5-5.1 [facility] Protein [Mass/Vol] 7.0 g/dL 6.4-8.2 [facility] Sodium [Moles/Vol] 134 mmol/L 136-145 [facility] WBC (Bld) [#/Vol] 6.4 10*3/uL 4.4-11.0 [facility] Bilirubin Test strip Ql (U)O rdered By: Lucio Fonseca on 08-13-2023 Bilirubin Ql (U) Negative Negative [facility] Determination of erythrocyte mean corpuscular volume (MCV)Ordered By: Lucio Fonseca on 08-13-2023 MCV (RBC) [Entitic vol] 87.1 fL 81-99 [facility] Direct bilirubinOrdered By: Lucio Fonseca on 08-13-2023 Bilirubin.direct [Mass/Vol] 0.12 mg/dL 0.00-0.30 [facility] Erythrocyte distribution wid th ratioOrdered By: Lucio Fonseca on 08-13-2023 Erythrocyte distribution width (RBC) [Ratio] 12.6 % 11.6-14.6 [facility] Erythrocyte distribution wid th standard deviationOrdered By: Lucio Fonseca on 08-13-2023 Erythrocyte distribution width (RBC) [Entitic vol] 40.3 fL 35.1-43.9 [facility] Hematocrit Auto (Bld) [Volum e fraction]Ordered By: Lucio Fonseca on 08-13-2023 Hematocrit (Bld) [Volume fraction] 38.4 % 37-47 [facility] Immature granulocytes/100 WB C Auto (Bld)Ordered By: Lucio Fonseca on 08-13-2023 Immature granulocytes/100 WBC (Bld) 0.300 % 0.0-0.9 [facility] Comment on above: IG% - Immature Granu locytes (promyelocytes, myelocytes and metamyelocytes) > 1% indicates that a LEFT SHIFT is Present. Ketones Test strip Ql (U)Ord ered By: Lucio Fonseca on 08-13-2023 Ketones Ql (U) 5 mg/dl Negative [facility] Laboratory - Chemistry and C hemistry - challengeOrdered By: Lucio Fonseca on 08-13-2023 ALP [Catalytic activity/Vol] 86 U/L 45-117 [facility] ALT [Catalytic activity/Vol] 22 U/L 13-56 [facility] CO2 [Moles/Vol] 22.0 mmol/L 21.0-32.0 [facility] Globulin (S) [Mass/Vol] 3.8 g/dL 2.2-4.2 [facility] Lipase [Catalytic activity/Vol] 49 U/L 13-75 [facility] Comment on above: Please note:LIPASE r evised reference range effective 22. New Lipase methodology. Expected to produce lower values than the previous assay method. NEW Reference Range: 13 - 75 U/L Urea nitrogen/Creatinine [Mass ratio] 15.7 mg/mg 10-20 [facility] Laboratory - Hematology and Cell countsOrdered By: Lucio Fonseca on 08-13-2023 MCH (RBC) [Entitic mass] 28.6 pg 27.0-32.0 [facility] MCHC (RBC) [Mass/Vol] 32.8 g/dL 32-36 [facility] Nucleated RBC/100 WBC (Bld) [Ratio] 0 % 0-5 [facility] Platelet mean volume (Bld) [Entitic vol] 10.8 fL 6.2-12.0 [facility] Platelets (Bld) [#/Vol] 211 10*3/uL 150-450 [facility] Laboratory - Microbiology an d Antimicrobial susceptibilityOrdered By: Lucio Fonseca on 08-13-2023 SARS-CoV-2 (COVID-19) RNA NICHOLE+probe Ql (Unsp spec) [facility] Mucus LM Ql (Urine sed)Order ed By: Lucio Fonseca on 08-13-2023 Mucus Ql (Urine sed) 0 SEEN /hpf [facility] Nitrite Test strip Ql (U)Ord ered By: Lucio Fonseca on 08-13-2023 Nitrite Ql (U) Negative Negative [facility] No Panel InformationOrdered By: Lucio Fonseca on 08-13-2023 Urine RBC 0 SEEN /hpf 0-5 [facility] Estimated Creatinine Clearance Calc 39.39 ml/min [facility] Estimated GFR (MDRD) Amer 57 mL/min >60 [facility] Comment on above: GFR Calc Estimated GFR (MDRD) Non-Af Amer 47 mL/min >60 [facility] Comment on above: Non- GFR Calc Troponin I High Sensitivity 51 pg/mL 3.0-54.0 [facility] Comment on above: Please Note: New Teresa t Units and Gender Specific Reference Ranges. For more information see Policy Stat Procedure [place] High Sensitivity Troponin (TNIH) and attachments. Protein Test strip Ql (U)Ord ered By: Lucio Fonseca on 08-13-2023 Protein Ql (U) 15 mg/dl Negative [facility] RBC Auto (Bld) [#/Vol]Ordere d By: Lucio Fonseca on 08-13-2023 RBC (Bld) [#/Vol] 4.41 10*6/uL 4.2-5.4 [facility] Serum or plasma calcium andreas urement (mass/volume)Ordered By: Lucio Fonseca on 08-13-2023 Calcium [Mass/Vol] 8.6 mg/dL 8.5-10.1 [facility] Serum or plasma creatinine m easurement (mass/volume)Ordered By: Lucio Fonseca on 08-13-2023 Creatinine [Mass/Vol] 1.15 mg/dL 0.55-1.02 [facility] Comment on above: The validity of the calculated GFR & GFRAA in patients over 70 years has not been determined. Clinical correlation is essential. Serum or plasma urea nitroge n measurement (mass/volume)Ordered By: Lucio Fonseca on 08-13-2023 Urea nitrogen [Mass/Vol] 18 mg/dL 7-18 [facility] Squamous epithelial cells de tection in urine sediment by light microscopyOrdered By: Lucio Fonseca on 08-13-2023 Epithelial cells.squamous LM Ql (Urine sed) 0 SEEN /hpf 5-10 [facility] Thin prep Papanicolaou smear with manual screeningOrdered By: Lucio Fonseca on 08-13-2023 Thin prep Papanicolaou smear with manual screening 3.2 g/dL 3.2-5.0 [facility] Thin prep Papanicolaou smear with manual screening 18 U/L 15-37 [facility] Thin prep Papanicolaou smear with manual screening 7 5-15 [facility] Urine blood detectionOrdered By: Lucio Fonseca on 08-13-2023 RBC Ql (U) 50 /ul Negative [facility] Urine clarityOrdered By: Andrei Fonseca on 08-13-2023 Clarity (U) Clear Clear [facility] Urine color determinationOrd ered By: Lucio Fonseca on 08-13-2023 Color (U) Yellow Yellow [facility] Urine glucose detectionOrder ed By: Lucio Fonseca on 08-13-2023 Glucose Ql (U) Normal mg/dl Normal [facility] Urine leukocyte esterase det ection by dipstickOrdered By: Lucio Fonseca on 08-13-2023 Leukocyte esterase Test strip Ql (U) Negative Negative [facility] Urine pHOrdered By: Lucio boss on 08-13-2023 pH (U) 5.0 [pH] 5.0 - 8.0 [facility] Urine sediment bacteria coun t by microscopy (number/high power field)Ordered By: Lucio Fonseca on 08-13-2023 Bacteria LM.HPF (Urine sed) [#/Area] 0 /[HPF] None Seen [facility] Urine specific gravity measu rementOrdered By: Lucio Fonseca on 08-13-2023 Specific gravity (U) [Rel density] 1.020 1.002-1.030 [facility] Urine urobilinogen measureme ntOrdered By: Lucio Fonseca on 08-13-2023 Urobilinogen Ql (U) Normal mg/dl Normal [facility] Absolute lymphocyte countOrd ered By: Neville Serrano on 06-09-2023 Lymphocytes Auto (Unsp spec) [#/Vol] 2.56 10*3/uL 0.83-4.51 [facility] Automated lymphocyte count a s percentage of total leukocytesOrdered By: Neville Serrano on 06-09-2023 Lymphocytes/100 WBC Auto (Unsp spec) 37.5 % 19-41 [facility] Basophil percentageOrdered B y: Neville Serrano on 06-09-2023 Basophils/100 WBC (Bld) 1.0 % 0-1 [facility] Bilirubin [Mass/Vol] 0.20 mg/dL 0.20-1.00 [facility] Comment on above: For patients on eltr ombopag therapy, use of Dimension [place] TBIL is not recommended. Chloride [Moles/Vol] 106 mmol/L 98-107 [facility] Eosinophils/100 WBC (Bld) 5.7 % 0-5 [facility] Glucose [Mass/Vol] 127 mg/dL 74-106 [facility] Comment on above: Fasting Glucose resu lt greater than or equal to 126 mg/dL suggests DIABETES MELLITUS per A.D.A. criteria. Hemoglobin (Bld) [Mass/Vol] 12.6 g/dL 12.0-15.0 [facility] Monocytes/100 WBC (Bld) 7.8 % 0-10 [facility] Neutrophils (Bld) [#/Vol] 3.3 10*3/uL 2.0-7.7 [facility] Neutrophils/100 WBC (Bld) 47.7 % 47-70 [facility] Potassium [Moles/Vol] 3.9 mmol/L 3.5-5.1 [facility] Protein [Mass/Vol] 7.8 g/dL 6.4-8.2 [facility] Sodium [Moles/Vol] 137 mmol/L 136-145 [facility] WBC (Bld) [#/Vol] 6.8 10*3/uL 4.4-11.0 [facility] Determination of erythrocyte mean corpuscular volume (MCV)Ordered By: Neville Serrano on 06-09-2023 MCV (RBC) [Entitic vol] 89.9 fL 81-99 [facility] Erythrocyte distribution wid th ratioOrdered By: Neville Serrano on 06-09-2023 Erythrocyte distribution width (RBC) [Ratio] 12.6 % 11.6-14.6 [facility] Erythrocyte distribution wid th standard deviationOrdered By: Neville Serrano on 06-09-2023 Erythrocyte distribution width (RBC) [Entitic vol] 41.6 fL 35.1-43.9 [facility] Hematocrit Auto (Bld) [Volum e fraction]Ordered By: Neville Serrano on 06-09-2023 Hematocrit (Bld) [Volume fraction] 38.3 % 37-47 [facility] Immature granulocytes/100 WB C Auto (Bld)Ordered By: Neville Serrano on 06-09-2023 Immature granulocytes/100 WBC (Bld) 0.300 % 0.0-0.9 [facility] Comment on above: IG% - Immature Granu locytes (promyelocytes, myelocytes and metamyelocytes) > 1% indicates that a LEFT SHIFT is Present. Laboratory - Chemistry and C hemistry - challengeOrdered By: Neville Serrano on 06-09-2023 Albumin/Globulin [Mass ratio] 0.7 {ratio} 0.9-2.4 [facility] ALP [Catalytic activity/Vol] 106 U/L 45-117 [facility] ALT [Catalytic activity/Vol] 32 U/L 13-56 [facility] CO2 [Moles/Vol] 22.0 mmol/L 21.0-32.0 [facility] Globulin (S) [Mass/Vol] 4.6 g/dL 2.2-4.2 [facility] Urea nitrogen/Creatinine [Mass ratio] 19.6 mg/mg 10-20 [facility] Laboratory - Hematology and Cell countsOrdered By: Neville Serrano on 06-09-2023 MCH (RBC) [Entitic mass] 29.6 pg 27.0-32.0 [facility] MCHC (RBC) [Mass/Vol] 32.9 g/dL 32-36 [facility] Nucleated RBC/100 WBC (Bld) [Ratio] 0 % 0-5 [facility] Platelets (Bld) [#/Vol] 271 10*3/uL 150-450 [facility] No Panel InformationOrdered By: Neville Serrano on 06-09-2023 Estimated GFR (MDRD) Amer 47 mL/min >60 [facility] Comment on above: GFR Calc Estimated GFR (MDRD) Non-Af Amer 38 mL/min >60 [facility] Comment on above: Non- GFR Calc Vitamin D 25-Hydroxy 18.4 ng/mL [facility] Comment on above: Vitamin D 25(OH) Sta tus Range Deficiency <20 ng/mL (50nmol/L) Insufficiency 20 - 30 ng/mL (50 - 75 nmol/L) Sufficiency 30 - 100 ng/mL (75 - 250 nmol/L) Toxicity >100 ng/mL (>250 nmol/L) Platelet mean volume [place] ker (Bld) [Entitic vol]Ordered By: Neville Serrano on 06-09-2023 Platelet mean volume (Bld) [Entitic vol] 10.5 fL 6.2-12.0 [facility] RBC Auto (Bld) [#/Vol]Ordere d By: Neville Serrano on 06-09-2023 RBC (Bld) [#/Vol] 4.26 10*6/uL 4.2-5.4 [facility] Serum or plasma calcium andreas urement (mass/volume)Ordered By: Neville Serrano on 06-09-2023 Calcium [Mass/Vol] 8.8 mg/dL 8.5-10.1 [facility] Serum or plasma creatinine m easurement (mass/volume)Ordered By: Neville Serrano on 06-09-2023 Creatinine [Mass/Vol] 1.38 mg/dL 0.55-1.02 [facility] Comment on above: The validity of the calculated GFR & GFRAA in patients over 70 years has not been determined. Clinical correlation is essential. Serum or plasma thyroid stim ulating hormone (TSH) measurement (units/volume)Ordered By: Neville Serrano on 06-09-2023 TSH Qn 2.23 uIU/mL 0.358-3.74 [facility] Serum or plasma urea nitroge n measurement (mass/volume)Ordered By: Neville Serrano on 06-09-2023 Urea nitrogen [Mass/Vol] 27 mg/dL 7-18 [facility] Thin prep Papanicolaou smear with manual screeningOrdered By: Neville Serrano 06-09-2023 Thin prep Papanicolaou smear with manual screening 3.2 g/dL 3.2-5.0 [facility] Thin prep Papanicolaou smear with manual screening 12 U/L 15-37 [facility] Thin prep Papanicolaou smear with manual screening 9 5-15 [facility] Absolute lymphocyte countOrd ered By: Marina Rogers on 03-08-2023 Lymphocytes Auto (Unsp spec) [#/Vol] 1.65 10*3/uL 0.83-4.51 [facility] Basophil percentageOrdered B y: John Pickett on 03-08-2023 Basophil percentage 3.6 mg/dL 2.5-4.9 [facility] Chloride [Moles/Vol] 104 mmol/L 98-107 [facility] Glucose [Mass/Vol] 108 mg/dL 74-106 [facility] Comment on above: Fasting Glucose resu lt from 100 to 125 mg/dL suggests IMPAIRED HOMEOSTASIS per A.D.A. criteria. Potassium [Moles/Vol] 3.9 mmol/L 3.5-5.1 [facility] Sodium [Moles/Vol] 138 mmol/L 136-145 [facility] Basophil percentageOrdered B y: Marina Rogers on 03-08-2023 Basophils/100 WBC (Bld) 1.0 % 0-1 [facility] Bilirubin [Mass/Vol] 0.40 mg/dL 0.20-1.00 [facility] Comment on above: For patients on eltr ombopag therapy, use of Dimension [place] TBIL is not recommended. Eosinophils/100 WBC (Bld) 3.9 % 0-5 [facility] Neutrophils (Bld) [#/Vol] 3.6 10*3/uL 2.0-7.7 [facility] Neutrophils/100 WBC (Bld) 58.9 % 47-70 [facility] Protein [Mass/Vol] 6.6 g/dL 6.4-8.2 [facility] WBC (Bld) [#/Vol] 6.1 10*3/uL 4.4-11.0 [facility] Blood erythrocytes count (nu mber/volume)Ordered By: Marina Rogers on 03-08-2023 RBC (Bld) [#/Vol] 3.94 10*6/uL 4.2-5.4 [facility] Blood hemoglobin measurement (mass/volume)Ordered By: Marian Rogers on 03-08-2023 Hemoglobin (Bld) [Mass/Vol] 12.0 g/dL 12.0-15.0 [facility] Blood lymphocytes/100 leukoc ytesOrdered By: Marina Rogers on 03-08-2023 Lymphocytes/100 WBC (Bld) 27.0 % 19-41 [facility] Blood monocytes/100 leukocyt esOrdered By: Marina Rogers on 03-08-2023 Monocytes/100 WBC (Bld) 8.9 % 0-10 [facility] Blood platelet mean volumeOr dered By: Marina Rogers on 03-08-2023 Platelet mean volume (Bld) [Entitic vol] 11.6 fL 6.2-12.0 [facility] Determination of erythrocyte mean corpuscular volume (MCV)Ordered By: Marina Rogers on 03-08-2023 MCV (RBC) [Entitic vol] 92.1 fL 81-99 [facility] Hematocrit Auto (Bld) [Volum e fraction]Ordered By: Marina Rogers on 03-08-2023 Hematocrit (Bld) [Volume fraction] 36.3 % 37-47 [facility] Laboratory - Chemistry and C hemistry - challengeOrdered By: [facility] Ken on 03-08-2023 ALP [Catalytic activity/Vol] 83 U/L 45-117 [facility] ALT [Catalytic activity/Vol] 22 U/L 13-56 [facility] Globulin (S) [Mass/Vol] 3.6 g/dL 2.2-4.2 [facility] Laboratory - Chemistry and C hemistry - challengeOrdered By: John Pickett on 03-08-2023 CO2 [Moles/Vol] 27.0 mmol/L 21.0-32.0 [facility] Magnesium [Mass/Vol] 2.1 mg/dL 1.6-2.6 [facility] Urea nitrogen/Creatinine [Mass ratio] 23.3 mg/mg 10-20 [facility] Laboratory - Hematology and Cell countsOrdered By: [facility] Ken on 03-08-2023 Erythrocyte distribution width (RBC) [Entitic vol] 43.4 fL 35.1-43.9 [facility] Erythrocyte distribution width (RBC) [Ratio] 12.8 % 11.6-14.6 [facility] Immature granulocytes/100 WBC (Bld) 0.300 % 0.0-0.9 [facility] Comment on above: IG% - Immature Granu locytes (promyelocytes, myelocytes and metamyelocytes) > 1% indicates that a LEFT SHIFT is Present. MCH (RBC) [Entitic mass] 30.5 pg 27.0-32.0 [facility] Nucleated RBC/100 WBC (Bld) [Ratio] 0 % 0-5 [facility] MCHC Auto (RBC) [Mass/Vol]Or dered By: Marina Rogers on 03-08-2023 MCHC (RBC) [Mass/Vol] 33.1 g/dL 32-36 [facility] No Panel InformationOrdered By: John Pickett on 03-08-2023 Estimated Creatinine Clearance Calc 21.86 ml/min [facility] Estimated GFR (MDRD) Amer 42 mL/min >60 [facility] Comment on above: GFR Calc Estimated GFR (MDRD) Non-Af Amer 35 mL/min >60 [facility] Comment on above: Non- GFR Calc No Panel InformationOrdered By: Marina Rogers on 03-08-2023 Thyroid Stimulating Hormone (TSH) 6.73 uIU/mL 0.358-3.74 [facility] Platelets bldOrdered By: Therese Rogers on 03-08-2023 Platelets (Bld) [#/Vol] 244 10*3/uL 150-450 [facility] Serum or plasma albumin andreas urement (mass/volume)Ordered By: Marina Rogers on 03-08-2023 Albumin [Mass/Vol] 3.0 g/dL 3.2-5.0 [facility] Serum or plasma albumin/glob ulin mass ratioOrdered By: Marina Rogers on 03-08-2023 Albumin/Globulin [Mass ratio] 0.8 {ratio} 0.9-2.4 [facility] Serum or plasma calcium andreas urement (mass/volume)Ordered By: John Pickett on 03-08-2023 Calcium [Mass/Vol] 8.6 mg/dL 8.5-10.1 [facility] Serum or plasma creatinine m easurement (mass/volume)Ordered By: John Pickett on 03-08-2023 Creatinine [Mass/Vol] 1.50 mg/dL 0.55-1.02 [facility] Comment on above: The validity of the calculated GFR & GFRAA in patients over 70 years has not been determined. Clinical correlation is essential. Serum or plasma urea nitroge n measurement (mass/volume)Ordered By: John Pickett on 03-08-2023 Urea nitrogen [Mass/Vol] 35 mg/dL 7-18 [facility] Thin prep Papanicolaou smear with manual screeningOrdered By: Marina Ken on 03-08-2023 Thin prep Papanicolaou smear with manual screening 15 U/L 15-37 [facility] Thin prep Papanicolaou smear with manual screeningOrdered By: John Pickett on 03-08-2023 Thin prep Papanicolaou smear with manual screening 7 5-15 [facility] Absolute lymphocyte countOrd ered By: Tomer Irvin on 03-07-2023 Lymphocytes Auto (Unsp spec) [#/Vol] 1.56 10*3/uL 0.83-4.51 [facility] Basophil percentageOrdered B y: Tomer Irvin on 03-07-2023 Basophils/100 WBC (Bld) 0.5 % 0-1 [facility] Chloride [Moles/Vol] 111 mmol/L 98-107 [facility] Eosinophils/100 WBC (Bld) 2.1 % 0-5 [facility] Glucose [Mass/Vol] 108 mg/dL 74-106 [facility] Comment on above: Fasting Glucose resu lt from 100 to 125 mg/dL suggests IMPAIRED HOMEOSTASIS per A.D.A. criteria. Neutrophils (Bld) [#/Vol] 8.3 10*3/uL 2.0-7.7 [facility] Neutrophils/100 WBC (Bld) 76.3 % 47-70 [facility] Potassium [Moles/Vol] 4.3 mmol/L 3.5-5.1 [facility] Sodium [Moles/Vol] 137 mmol/L 136-145 [facility] WBC (Bld) [#/Vol] 10.8 10*3/uL 4.4-11.0 [facility] Blood erythrocytes count (nu mber/volume)Ordered By: Tomer Irvin on 03-07-2023 RBC (Bld) [#/Vol] 3.59 10*6/uL 4.2-5.4 [facility] Blood hemoglobin measurement (mass/volume)Ordered By: Tomer Irvin on 03-07-2023 Hemoglobin (Bld) [Mass/Vol] 10.7 g/dL 12.0-15.0 [facility] Blood lymphocytes/100 leukoc ytesOrdered By: Tomer Irvin on 03-07-2023 Lymphocytes/100 WBC (Bld) 14.4 % 19-41 [facility] Blood monocytes/100 leukocyt esOrdered By: Tomer Irvin on 03-07-2023 Monocytes/100 WBC (Bld) 6.2 % 0-10 [facility] Blood platelet mean volumeOr dered By: Tomer Irvin on 03-07-2023 Platelet mean volume (Bld) [Entitic vol] 11.5 fL 6.2-12.0 [facility] Determination of erythrocyte mean corpuscular volume (MCV)Ordered By: Tomer Irvin on 03-07-2023 MCV (RBC) [Entitic vol] 91.9 fL 81-99 [facility] Hematocrit Auto (Bld) [Volum e fraction]Ordered By: Tomer Irvin on 03-07-2023 Hematocrit (Bld) [Volume fraction] 33.0 % 37-47 [facility] Iron measurement (mass/mass) Ordered By: Marina Rogers on 03-07-2023 Iron (Unsp spec) [Mass/Mass] 48 ug/dL 50-170 [facility] Laboratory - Chemistry and C hemistry - challengeOrdered By: Tomer Irvin on 03-07-2023 CO2 [Moles/Vol] 20.0 mmol/L 21.0-32.0 [facility] Urea nitrogen/Creatinine [Mass ratio] 18.5 mg/mg 10-20 [facility] Laboratory - Chemistry and C hemistry - challengeOrdered By: Marina Rogers on 03-07-2023 Magnesium [Mass/Vol] 2.0 mg/dL 1.6-2.6 [facility] Natriuretic peptide B (Bld) [Mass/Vol] 969.7 pg/mL 0-100 [facility] Laboratory - CoagulationOrde red By: Tomer Irvin on 03-07-2023 aPTT Coag (Bld) [Time] 23.0 s 24.1-36.2 [facility] Laboratory - Hematology and Cell countsOrdered By: Tomer Irvin on 03-07-2023 Erythrocyte distribution width (RBC) [Entitic vol] 41.7 fL 35.1-43.9 [facility] Erythrocyte distribution width (RBC) [Ratio] 12.5 % 11.6-14.6 [facility] Immature granulocytes/100 WBC (Bld) 0.500 % 0.0-0.9 [facility] Comment on above: IG% - Immature Granu locytes (promyelocytes, myelocytes and metamyelocytes) > 1% indicates that a LEFT SHIFT is Present. MCH (RBC) [Entitic mass] 29.8 pg 27.0-32.0 [facility] Nucleated RBC/100 WBC (Bld) [Ratio] 0 % 0-5 [facility] MCHC Auto (RBC) [Mass/Vol]Or dered By: Tomer Irvin on 03-07-2023 MCHC (RBC) [Mass/Vol] 32.4 g/dL 32-36 [facility] No Panel InformationOrdered By: Marina Rogers on 03-07-2023 Troponin I High Sensitivity 707 pg/mL 3.0-54.0 [facility] Comment on above: Critical Result(s) C alled at: 12:03:27 03/07/2023 by: Rajani Donohue. Results read back by same. Please Note: New Test Units and Gender Specific Reference Ranges. For more information see Policy Stat Procedure [place] High Sensitivity Troponin (TNIH) and attachments. Total Iron Binding Capacity 335 ug/dL 250-450 [facility] No Panel InformationOrdered By: Tomer Irvin on 03-07-2023 Troponin I High Sensitivity 763 pg/mL 3.0-54.0 [facility] Comment on above: Critical Result(s) C alled at: 07:56:28 03/07/2023 by: Rajani Villarreal. Results read back by same. Please Note: New Test Units and Gender Specific Reference Ranges. For more information see Policy Stat Procedure [place] High Sensitivity Troponin (TNIH) and attachments. Estimated Creatinine Clearance Calc 18.42 ml/min [facility] Estimated GFR (MDRD) Amer 35 mL/min >60 [facility] Comment on above: GFR Calc Estimated GFR (MDRD) Non-Af Amer 29 mL/min >60 [facility] Comment on above: Non- GFR Calc Platelets bldOrdered By: Andry Irvin on 03-07-2023 Platelets (Bld) [#/Vol] 208 10*3/uL 150-450 [facility] Serum or plasma calcium andreas urement (mass/volume)Ordered By: Tomer Irvin on 03-07-2023 Calcium [Mass/Vol] 8.4 mg/dL 8.5-10.1 [facility] Serum or plasma creatinine m easurement (mass/volume)Ordered By: Tomer Irvin on 03-07-2023 Creatinine [Mass/Vol] 1.78 mg/dL 0.55-1.02 [facility] Comment on above: The validity of the calculated GFR & GFRAA in patients over 70 years has not been determined. Clinical correlation is essential. Serum or plasma ferritin christina surement (mass/volume)Ordered By: Marina Rogers on 03-07-2023 Ferritin [Mass/Vol] 212 ng/mL 8-252 [facility] Serum or plasma iron saturat ion measurement (mass fraction)Ordered By: Marina Rogers on 03-07-2023 Iron saturation [Mass fraction] 14.3 % 15.0-55.0 [facility] Serum or plasma urea nitroge n measurement (mass/volume)Ordered By: Tomer Irvin on 03-07-2023 Urea nitrogen [Mass/Vol] 33 mg/dL 7-18 [facility] Thin prep Papanicolaou smear with manual screeningOrdered By: Tomer Irvin on 03-07-2023 Thin prep Papanicolaou smear with manual screening 6 5-15 [facility] Absolute lymphocyte countOrd ered By: Antwon Peguero on 03-04-2023 Lymphocytes Auto (Unsp spec) [#/Vol] 1.94 10*3/uL 0.83-4.51 [facility] Basophil percentageOrdered B y: Antwon Peguero on 03-04-2023 Basophils/100 WBC (Bld) 0.7 % 0-1 [facility] Eosinophils/100 WBC (Bld) 3.7 % 0-5 [facility] Neutrophils (Bld) [#/Vol] 4.0 10*3/uL 2.0-7.7 [facility] Neutrophils/100 WBC (Bld) 58.0 % 47-70 [facility] WBC (Bld) [#/Vol] 6.8 10*3/uL 4.4-11.0 [facility] Basophil percentageOrdered B y: Connie Cortez on 03-04-2023 Bilirubin [Mass/Vol] 0.20 mg/dL 0.20-1.00 [facility] Comment on above: For patients on eltr ombopag therapy, use of Dimension [place] TBIL is not recommended. Chloride [Moles/Vol] 113 mmol/L 98-107 [facility] Glucose [Mass/Vol] 112 mg/dL 74-106 [facility] Comment on above: Fasting Glucose resu lt from 100 to 125 mg/dL suggests IMPAIRED HOMEOSTASIS per A.D.A. criteria. Potassium [Moles/Vol] 4.3 mmol/L 3.5-5.1 [facility] Protein [Mass/Vol] 6.1 g/dL 6.4-8.2 [facility] Sodium [Moles/Vol] 139 mmol/L 136-145 [facility] Blood erythrocytes count (nu mber/volume)Ordered By: Antwon Peguero on 03-04-2023 RBC (Bld) [#/Vol] 3.57 10*6/uL 4.2-5.4 [facility] Blood hemoglobin measurement (mass/volume)Ordered By: Antwon Peguero on 03-04-2023 Hemoglobin (Bld) [Mass/Vol] 10.6 g/dL 12.0-15.0 [facility] Blood lymphocytes/100 leukoc ytesOrdered By: Antwon Peguero on 03-04-2023 Lymphocytes/100 WBC (Bld) 28.5 % 19-41 [facility] Blood monocytes/100 leukocyt esOrdered By: Antwon Peguero on 03-04-2023 Monocytes/100 WBC (Bld) 8.8 % 0-10 [facility] Blood platelet mean volumeOr dered By: Antwon Peguero on 03-04-2023 Platelet mean volume (Bld) [Entitic vol] 11.4 fL 6.2-12.0 [facility] Determination of erythrocyte mean corpuscular volume (MCV)Ordered By: Antwon Peguero on 03-04-2023 MCV (RBC) [Entitic vol] 95.0 fL 81-99 [facility] Hematocrit Auto (Bld) [Volum e fraction]Ordered By: Antwon Peguero on 03-04-2023 Hematocrit (Bld) [Volume fraction] 33.9 % 37-47 [facility] Laboratory - Chemistry and C hemistry - challengeOrdered By: Connie Cortez on 03-04-2023 ALP [Catalytic activity/Vol] 74 U/L 45-117 [facility] ALT [Catalytic activity/Vol] 20 U/L 13-56 [facility] [facility] CO2 [Moles/Vol] 24.0 mmol/L 21.0-32.0 [facility] Globulin (S) [Mass/Vol] 3.5 g/dL 2.2-4.2 [facility] Urea nitrogen/Creatinine [Mass ratio] 25.4 mg/mg 10-20 [facility] Laboratory - Hematology and Cell countsOrdered By: Antwon Peguero on 03-04-2023 Erythrocyte distribution width (RBC) [Entitic vol] 44.9 fL 35.1-43.9 [facility] Erythrocyte distribution width (RBC) [Ratio] 13.0 % 11.6-14.6 [facility] Immature granulocytes/100 WBC (Bld) 0.300 % 0.0-0.9 [facility] Comment on above: IG% - Immature Granu locytes (promyelocytes, myelocytes and metamyelocytes) > 1% indicates that a LEFT SHIFT is Present. MCH (RBC) [Entitic mass] 29.7 pg 27.0-32.0 [facility] Nucleated RBC/100 WBC (Bld) [Ratio] 0 % 0-5 [facility] MCHC Auto (RBC) [Mass/Vol]Or dered By: Antwon Peguero on 03-04-2023 MCHC (RBC) [Mass/Vol] 31.3 g/dL 32-36 [facility] No Panel InformationOrdered By: Connie Cortez on 03-04-2023 Estimated Creatinine Clearance Calc 25.22 ml/min [facility] Estimated GFR (MDRD) Amer 50 mL/min >60 [facility] Comment on above: GFR Calc Estimated GFR (MDRD) Non-Af Amer 41 mL/min >60 [facility] Comment on above: Non- GFR Calc Platelets bldOrdered By: Gerson Peguero on 03-04-2023 Platelets (Bld) [#/Vol] 181 10*3/uL 150-450 [facility] Serum or plasma albumin andreas urement (mass/volume)Ordered By: Connie Cortez on 03-04-2023 Albumin [Mass/Vol] 2.6 g/dL 3.2-5.0 [facility] Serum or plasma albumin/glob ulin mass ratioOrdered By: Connie Cortez on 03-04-2023 Albumin/Globulin [Mass ratio] 0.7 {ratio} 0.9-2.4 [facility] Serum or plasma calcium andreas urement (mass/volume)Ordered By: Connie Cortez on 03-04-2023 Calcium [Mass/Vol] 8.1 mg/dL 8.5-10.1 [facility] Serum or plasma creatinine m easurement (mass/volume)Ordered By: Connie Cortez on 03-04-2023 Creatinine [Mass/Vol] 1.30 mg/dL 0.55-1.02 [facility] Comment on above: The validity of the calculated GFR & GFRAA in patients over 70 years has not been determined. Clinical correlation is essential. Serum or plasma urea nitroge n measurement (mass/volume)Ordered By: Connie Cortez on 03-04-2023 Urea nitrogen [Mass/Vol] 33 mg/dL 7-18 [facility] Thin prep Papanicolaou smear with manual screeningOrdered By: Connie Cortez on 03-04-2023 Thin prep Papanicolaou smear with manual screening 27 U/L 15-37 [facility] Thin prep Papanicolaou smear with manual screening 2 5-15 [facility] Laboratory - CoagulationOrde red By: Antwon Peguero on 03-03-2023 aPTT Coag (Bld) [Time] 60.0 s 24.1-36.2 [facility] Absolute lymphocyte countOrd ered By: Alphonso Thomas on 02-28-2023 Lymphocytes Auto (Unsp spec) [#/Vol] 1.96 10*3/uL 0.83-4.51 [facility] Basophil percentageOrdered B y: Alphonso Thomas on 02-28-2023 Basophils/100 WBC (Bld) 0.6 % 0-1 [facility] Chloride [Moles/Vol] 104 mmol/L 98-107 [facility] Eosin[facility]/100 WBC (Bld) 0.5 % 0-5 [facility] Glucose [Mass/Vol] 122 mg/dL 74-106 [facility] Comment on above: Fasting Glucose resu lt from 100 to 125 mg/dL suggests IMPAIRED HOMEOSTASIS per A.D.A. criteria. Neutrophils (Bld) [#/Vol] 5.6 10*3/uL 2.0-7.7 [facility] Neutrophils/100 WBC (Bld) 68.0 % 47-70 [facility] Potassium [Moles/Vol] 4.1 mmol/L 3.5-5.1 [facility] Sodium [Moles/Vol] 134 mmol/L 136-145 [facility] WBC (Bld) [#/Vol] 8.2 10*3/uL 4.4-11.0 [facility] Blood erythrocytes count (nu mber/volume)Ordered By: Alphonso Thomas on 02-28-2023 RBC (Bld) [#/Vol] 4.46 10*6/uL 4.2-5.4 [facility] Blood hemoglobin measurement (mass/volume)Ordered By: Alphonso Thomas on 02-28-2023 Hemoglobin (Bld) [Mass/Vol] 13.3 g/dL 12.0-15.0 [facility] Blood lymphocytes/100 leukoc ytesOrdered By: Alphonso Thomas on 02-28-2023 Lymphocytes/100 WBC (Bld) 24.0 % 19-41 [facility] Blood monocytes/100 leukocyt esOrdered By: Alphonso Thomas on 02-28-2023 Monocytes/100 WBC (Bld) 6.7 % 0-10 [facility] Blood platelet mean volumeOr dered By: Alphonso Thomas on 02-28-2023 Platelet mean volume (Bld) [Entitic vol] 10.8 fL 6.2-12.0 [facility] Determination of erythrocyte mean corpuscular volume (MCV)Ordered By: Alphonso Thomas on 02-28-2023 MCV (RBC) [Entitic vol] 89.9 fL 81-99 [facility] Hematocrit Auto (Bld) [Volum e fraction]Ordered By: Alphonso Thomas on 02-28-2023 Hematocrit (Bld) [Volume fraction] 40.1 % 37-47 [facility] INR in Blood by Coagulation assayOrdered By: Georges Mcdonald on 02-28-2023 INR Coag (Bld) [Relative time] 1.0 {INR} [facility] - Chemistry and C hemistry - challengeOrdered By: Alphonso Thomas on 02-28-2023 CO2 [Moles/Vol] 24.0 mmol/L 21.0-32.0 [facility] Urea nitrogen/Creatinine [Mass ratio] 21.3 mg/mg 10- [facility] - CoagulationOrde red By: Georges Mcdonald on 02-28-2023 PT Coag (PPP) [Time] 13.6 s 11.7-14.9 [facility] Laboratory - Hematology and Cell countsOrdered By: Alphonso Thomas on 02-28-2023 Erythrocyte distribution width (RBC) [Entitic vol] 40.7 fL 35.1-43.9 [facility] Erythrocyte distribution width (RBC) [Ratio] 12.4 % 11.6-14.6 [facility] Immature granulocytes/100 WBC (Bld) 0.200 % 0.0-0.9 [facility] Comment on above: IG% - Immature Granu locytes (promyelocytes, myelocytes and metamyelocytes) > 1% indicates that a LEFT SHIFT is Present. MCH (RBC) [Entitic mass] 29.8 pg 27.0-32.0 [facility] Nucleated RBC/100 WBC (Bld) [Ratio] 0 % 0-5 [facility] MCHC Auto (RBC) [Mass/Vol]Or dered By: Alphonso Thomas on 02-28-2023 MCHC (RBC) [Mass/Vol] 33.2 g/dL 32-36 [facility] No Panel InformationOrdered By: Antwon Peguero on 02-28-2023 Troponin I High Sensitivity 72386 pg/mL 3.0-54.0 [facility] Comment on above: Critical Result(s) C alled at: 18:28:51 02/28/2023 by: Lisa Murphy to Edith Results read back by same. Please Note: New Test Units and Gender Specific Reference Ranges. For more information see Policy Stat Procedure [place] High Sensitivity Troponin (TNIH) and attachments. No Panel InformationOrdered By: Alphonsojose Thomas on 02-28-2023 Troponin I High Sensitivity 50734 pg/mL 3.0-54.0 [facility] Comment on above: Critical Result(s) C alled at: 14:43:52 02/28/2023 by: Erica Acuna to Maranda Anna. Results read back by same. Please Note: New Test Units and Gender Specific Reference Ranges. For more information see Policy Stat Procedure [place] High Sensitivity Troponin (TNIH) and attachments. Estimated Creatinine Clearance Calc 19.40 ml/min [facility] Estimated GFR (MDRD) Amer 37 mL/min >60 [facility] Comment on above: GFR Calc Estimated GFR (MDRD) Non-Af Amer 30 mL/min >60 [facility] Comment on above: Non- GFR Calc Platelets bldOrdered By: Alphonso Thomas on 02-28-2023 Platelets (Bld) [#/Vol] 242 10*3/uL 150-450 [facility] Serum or plasma calcium andreas urement (mass/volume)Ordered By: Alphonso Thomas on 02-28-2023 Calcium [Mass/Vol] 8.9 mg/dL 8.5-10.1 [facility] Serum or plasma creatinine m easurement (mass/volume)Ordered By: Alphonso Thomas on 02-28-2023 Creatinine [Mass/Vol] 1.69 mg/dL 0.55-1.02 [facility] Comment on above: The validity of the calculated GFR & GFRAA in patients over 70 years has not been determined. Clinical correlation is essential. Serum or plasma urea nitroge n measurement (mass/volume)Ordered By: Alphonso Thomas on 02-28-2023 Urea nitrogen [Mass/Vol] 36 mg/dL 7-18 [facility] Thin prep Papanicolaou smear with manual screeningOrdered By: Alphonso Thomas on 02-28-2023 Thin prep Papanicolaou smear with manual screening 6 5-15 [facility] Absolute lymphocyte countOrd ered By: Neville Serrano on 12-05-2022 Lymphocytes Auto (Unsp spec) [#/Vol] 2.94 10*3/uL 0.83-4.51 [facility] Basophil percentageOrdered B y: Neville Serrano on 12-05-2022 Basophils/100 WBC (Bld) 1.2 % 0-1 [facility] Bilirubin [Mass/Vol] 0.30 mg/dL 0.20-1.00 [facility] Comment on above: For patients on eltr ombopag therapy, use of Dimension [place] TBIL is not recommended. Chloride [Moles/Vol] 106 mmol/L 98-107 [facility] Eosinophils/100 WBC (Bld) 4.4 % 0-5 [facility] Glucose [Mass/Vol] 106 mg/dL 74-106 [facility] Comment on above: Fasting Glucose resu lt from 100 to 125 mg/dL suggests IMPAIRED HOMEOSTASIS per A.D.A. criteria. Neutrophils (Bld) [#/Vol] 2.9 10*3/uL 2.0-7.7 [facility] Neutrophils/100 WBC (Bld) 42.5 % 47-70 [facility] Potassium [Moles/Vol] 4.1 mmol/L 3.5-5.1 [facility] Protein [Mass/Vol] 7.2 g/dL 6.4-8.2 [facility] Sodium [Moles/Vol] 137 mmol/L 136-145 [facility] WBC (Bld) [#/Vol] 6.9 10*3/uL 4.4-11.0 [facility] Blood erythrocytes count (nu mber/volume)Ordered By: Neville Serrano on 12-05-2022 RBC (Bld) [#/Vol] 4.18 10*6/uL 4.2-5.4 [facility] Blood hemoglobin measurement (mass/volume)Ordered By: Neville Serrano on 12-05-2022 Hemoglobin (Bld) [Mass/Vol] 12.6 g/dL 12.0-15.0 [facility] Blood lymphocytes/100 leukoc ytesOrdered By: Neville Serrano on 12-05-2022 Lymphocytes/100 WBC (Bld) 42.9 % 19-41 [facility] Blood monocytes/100 leukocyt esOrdered By: Neville Serrano on 12-05-2022 Monocytes/100 WBC (Bld) 8.7 % 0-10 [facility] Blood platelet mean volumeOr dered By: Neville Serrano on 12-05-2022 Platelet mean volume (Bld) [Entitic vol] 11.3 fL 6.2-12.0 [facility] Determination of erythrocyte mean corpuscular volume (MCV)Ordered By: Neville Serrano on 12-05-2022 MCV (RBC) [Entitic vol] 91.4 fL 81-99 [facility] Hematocrit Auto (Bld) [Volum e fraction]Ordered By: Neville Serrano on 12-05-2022 Hematocrit (Bld) [Volume fraction] 38.2 % 37-47 [facility] - Chemistry and C hemistry - challengeOrdered By: Neville Zach on 12-05-2022 ALP [Catalytic activity/Vol] 93 U/L 45-117 [facility] ALT [Catalytic activity/Vol] 23 U/L 13-56 [facility] CO2 [Moles/Vol] 23.0 mmol/L 21.0-32.0 [facility] Globulin (S) [Mass/Vol] 3.9 g/dL 2.2-4.2 [facility] Urea nitrogen/Creatinine [Mass ratio] 22.2 mg/mg 10-20 [facility] - Hematology and Cell countsOrdered By: Neville Serrano on 12-05-2022 Erythrocyte distribution width (RBC) [Entitic vol] 45.1 fL 35.1-43.9 [facility] Erythrocyte distribution width (RBC) [Ratio] 13.2 % 11.6-14.6 [facility] Immature granulocytes/100 WBC (Bld) 0.300 % 0.0-0.9 [facility] Comment on above: IG% - Immature Granu locytes (promyelocytes, myelocytes and metamyelocytes) > 1% indicates that a LEFT SHIFT is Present. MCH (RBC) [Entitic mass] 30.1 pg 27.0-32.0 [facility] Nucleated RBC/100 WBC (Bld) [Ratio] 0 % 0-5 [facility] MCHC Auto (RBC) [Mass/Vol]Or dered By: Neville Serrano on 12-05-2022 MCHC (RBC) [Mass/Vol] 33.0 g/dL 32-36 [facility] No Panel InformationOrdered By: Neville Serrano on 12-05-2022 Estimated GFR (MDRD) Amer 40 mL/min >60 [facility] Comment on above: GFR Calc Estimated GFR (MDRD) Non-Af Amer 33 mL/min >60 [facility] Comment on above: Non- GFR Calc Thyroid Stimulating Hormone (TSH) 1.61 uIU/mL 0.358-3.74 [facility] Vitamin D 25-Hydroxy 26.4 ng/mL [facility] Comment on above: Vitamin D 25(OH) Sta tus Range Deficiency <20 ng/mL (50nmol/L) Insufficiency 20 - 30 ng/mL (50 - 75 nmol/L) Sufficiency 30 - 100 ng/mL (75 - 250 nmol/L) Toxicity >100 ng/mL (>250 nmol/L) Platelets bldOrdered By: Neville Serrano on 12-05-2022 Platelets (Bld) [#/Vol] 235 10*3/uL 150-450 [facility] Serum or plasma albumin andreas urement (mass/volume)Ordered By: Neville Serrano on 12-05-2022 Albumin [Mass/Vol] 3.3 g/dL 3.2-5.0 [facility] Serum or plasma albumin/glob ulin mass ratioOrdered By: Neville Serrano on 12-05-2022 Albumin/Globulin [Mass ratio] 0.8 {ratio} 0.9-2.4 [facility] Serum or plasma calcium andreas urement (mass/volume)Ordered By: Neville Serrano on 12-05-2022 Calcium [Mass/Vol] 8.8 mg/dL 8.5-10.1 [facility] Serum or plasma creatinine m easurement (mass/volume)Ordered By: Neville Serrano on 12-05-2022 Creatinine [Mass/Vol] 1.58 mg/dL 0.55-1.02 [facility] Comment on above: The validity of the calculated GFR & GFRAA in patients over 70 years has not been determined. Clinical correlation is essential. Serum or plasma urea nitroge n measurement (mass/volume)Ordered By: Neville Serrano on 12-05-2022 Urea nitrogen [Mass/Vol] 35 mg/dL 7-18 [facility] Thin prep Papanicolaou smear with manual screeningOrdered By: Neville Serrano on 12-05-2022 Thin prep Papanicolaou smear with manual screening 17 U/L 15-37 [facility] Thin prep Papanicolaou smear with manual screening 8 5-15 [facility] Basophil percentageOrdered B y: Dr. Varma on 08-13-2022 Basophil percentage 3.3 mg/dL 2.5-4.9 [facility] Chloride [Moles/Vol] 107 mmol/L 98-107 [facility] Glucose [Mass/Vol] 101 mg/dL 74-106 [facility] Comment on above: Fasting Glucose resu lt from 100 to 125 mg/dL suggests IMPAIRED HOMEOSTASIS per A.D.A. criteria. Potassium [Moles/Vol] 3.3 mmol/L 3.5-5.1 [facility] Sodium [Moles/Vol] 138 mmol/L 136-145 [facility] Laboratory - Chemistry and C hemistry - challengeOrdered By: Dr. Varma on 08-13-2022 CO2 [Moles/Vol] 26.0 mmol/L 21.0-32.0 [facility] Magnesium [Mass/Vol] 2.0 mg/dL 1.6-2.6 [facility] Urea nitrogen/Creatinine [Mass ratio] 18.0 mg/mg 10-20 [facility] Laboratory - Microbiology an d Antimicrobial susceptibilityOrdered By: Dr. Rogers on 08-13-2022 Respiratory pathogens DNA and RNA 12b panel NICHOLE+probe (Unsp spec) [facility] No Panel InformationOrdered By: Dr. Varma on 08-13-2022 Estimated Creatinine Clearance Calc 26.10 ml/min [facility] Estimated GFR (MDRD) Amer 51 mL/min >60 [facility] Comment on above: GFR Calc Estimated GFR (MDRD) Non-Af Amer 42 mL/min >60 [facility] Comment on above: Non- GFR Calc Serum or plasma calcium andreas urement (mass/volume)Ordered By: Dr. Varma on 08-13-2022 Calcium [Mass/Vol] 8.6 mg/dL 8.5-10.1 [facility] Serum or plasma creatinine m easurement (mass/volume)Ordered By: Dr. Varma on 08-13-2022 Creatinine [Mass/Vol] 1.28 mg/dL 0.55-1.02 [facility] Comment on above: The validity of the calculated GFR & GFRAA in patients over 70 years has not been determined. Clinical correlation is essential. Serum or plasma urea nitroge n measurement (mass/volume)Ordered By: Dr. Varma on 08-13-2022 Urea nitrogen [Mass/Vol] 23 mg/dL 7-18 [facility] Thin prep Papanicolaou smear with manual screeningOrdered By: Dr. Varma on 08-13-2022 Thin prep Papanicolaou smear with manual screening 5 5-15 [facility] Absolute lymphocyte countOrd ered By: Dr. Rogers on 08-12-2022 Lymphocytes Auto (Unsp spec) [#/Vol] 2.78 10*3/uL 0.83-4.51 [facility] Basophil percentageOrdered B y: Dr. Rogers on 08-12-2022 Basophils/100 WBC (Bld) 0.9 % 0-1 [facility] Bilirubin [Mass/Vol] 0.50 mg/dL 0.20-1.00 [facility] Comment on above: For patients on eltr ombopag therapy, use of Dimension [place] TBIL is not recommended. Cholesterol [Mass/Vol] 256 mg/dL <200 [facility] Comment on above: <200 mg/dL Desirable 200-240 mg/dL Borderline >240 mg/dL High Risk Eosinophils/100 WBC (Bld) 1.9 % 0-5 [facility] Neutrophils (Bld) [#/Vol] 3.1 10*3/uL 2.0-7.7 [facility] Neutrophils/100 WBC (Bld) 45.2 % 47-70 [facility] Protein [Mass/Vol] 6.4 g/dL 6.4-8.2 [facility] Triglyceride [Mass/Vol] 148 mg/dL <199 [facility] Comment on above: The drugs N-Acetylcy steine and Metamizole may falsely depress this assay.Serum Triglycerides Reference Interval Normal <150 mg/dL Borderline high 150 - 199 mg/dL High 200 - 499 mg/dL Very High > or = 500 mg/dL WBC (Bld) [#/Vol] 6.8 10*3/uL 4.4-11.0 [facility] Blood erythrocytes count (nu mber/volume)Ordered By: Dr. Rogers on 08-12-2022 RBC (Bld) [#/Vol] 4.23 10*6/uL 4.2-5.4 [facility] Blood hemoglobin measurement (mass/volume)Ordered By: Dr. Rogers on 08-12-2022 Hemoglobin (Bld) [Mass/Vol] 12.4 g/dL 12.0-15.0 [facility] Blood lymphocytes/100 leukoc ytesOrdered By: Dr. Rogers on 08-12-2022 Lymphocytes/100 WBC (Bld) 40.9 % 19-41 [facility] Blood monocytes/100 leukocyt esOrdered By: Dr. Rogers on 08-12-2022 Monocytes/100 WBC (Bld) 10.8 % 0-10 [facility] Blood platelet mean volumeOr dered By: Dr. Rogers on 08-12-2022 Platelet mean volume (Bld) [Entitic vol] 11.3 fL 6.2-12.0 [facility] Determination of erythrocyte mean corpuscular volume (MCV)Ordered By: Dr. Rogers on 08-12-2022 MCV (RBC) [Entitic vol] 89.6 fL 81-99 [facility] Hematocrit Auto (Bld) [Volum e fraction]Ordered By: Dr. Rogers on 08-12-2022 Hematocrit (Bld) [Volume fraction] 37.9 % 37-47 [facility] Laboratory - Chemistry and C hemistry - challengeOrdered By: Dr. Rogers on 08-12-2022 ALP [Catalytic activity/Vol] 83 U/L 45-117 [facility] ALT [Catalytic activity/Vol] 18 U/L 13-56 [facility] Free T4 [Mass/Vol] 1.25 ng/dL 0.76-1.46 [facility] Globulin (S) [Mass/Vol] 3.5 g/dL 2.2-4.2 [facility] Laboratory - Hematology and Cell countsOrdered By: Dr. Rogers on 08-12-2022 Erythrocyte distribution width (RBC) [Entitic vol] 41.1 fL 35.1-43.9 [facility] Erythrocyte distribution width (RBC) [Ratio] 12.7 % 11.6-14.6 [facility] Immature granulocytes/100 WBC (Bld) 0.300 % 0.0-0.9 [facility] Comment on above: IG% - Immature Granu locytes (promyelocytes, myelocytes and metamyelocytes) > 1% indicates that a LEFT SHIFT is Present. MCH (RBC) [Entitic mass] 29.3 pg 27.0-32.0 [facility] Nucleated RBC/100 WBC (Bld) [Ratio] 0 % 0-5 [facility] - Microbiology an d Antimicrobial susceptibilityOrdered By: Marina Rogers on 08-12-2022 Respiratory pathogens DNA and RNA 12b panel NICHOLE+probe (Unsp spec) [facility] MCHC Auto (RBC) [Mass/Vol]Or dered By: Dr. Rogers on 08-12-2022 MCHC (RBC) [Mass/Vol] 32.7 g/dL 32-36 [facility] No Panel InformationOrdered By: Dr. Rogers on 08-12-2022 Thyroid Stimulating Hormone (TSH) 4.57 uIU/mL 0.358-3.74 [facility] Streptococcus pneumoniae Antigen ([facility] No Panel InformationOrdered By: Marina Rogers on 08-12-2022 Streptococcus pneumoniae Antigen ([facility] Platelets bldOrdered By: Dr. Rogers on 08-12-2022 Platelets (Bld) [#/Vol] 216 10*3/uL 150-450 [facility] Serum or plasma albumin andreas urement (mass/volume)Ordered By: Dr. Rogers on 08-12-2022 Albumin [Mass/Vol] 2.9 g/dL 3.2-5.0 [facility] Serum or plasma albumin/glob ulin mass ratioOrdered By: Dr. Rogers on 08-12-2022 Albumin/Globulin [Mass ratio] 0.8 {ratio} 0.9-2.4 [facility] Serum or plasma cholesterol in HDL measurement (mass/volume)Ordered By: Dr. Rogers on 08-12-2022 Cholesterol in HDL [Mass/Vol] 42 mg/dL >40 [facility] Comment on above: The drugs N-Acetylcy steine and Metamizole may falsely depress this assay. Reference Range HDL <40 mg/dL Low HDL Cholesterol HDL >or= 60 mg/dL High HDL Cholesterol Serum or plasma cholesterol in VLDL measurement (mass/volume)Ordered By: Dr. Rogers on 08-12-2022 Cholesterol in VLDL [Mass/Vol] 30 mg/dL 5-40 [facility] Serum or plasma low density lipoprotein (LDL) cholesterol measurement (mass/volume)Ordered By: Dr. Rogers on 08-12-2022 Cholesterol in LDL [Mass/Vol] 184 mg/dL 0-130 [facility] Thin prep Papanicolaou smear with manual screeningOrdered By: Dr. Rogers on 08-12-2022 Thin prep Papanicolaou smear with manual screening 21 U/L 15-37 [facility] Urine Legionella pneumophila antigen detectionOrdered By: Marina Rogers on 08-12-2022 L. pneumophila Ag Ql (U) [facility] Urine Legionella pneumophila antigen detectionOrdered By: Dr. Rogers on 08-12-2022 L. pneumophila Ag Ql (U) [facility] Laboratory - Chemistry and C hemistry - challengeOrdered By: Dr. Amin on 08-11-2022 Natriuretic peptide B (Bld) [Mass/Vol] 350.0 pg/mL 0-100 [facility] No Panel InformationOrdered By: Dr. Rogers on 08-11-2022 Troponin I High Sensitivity 24 pg/mL 3.0-54.0 [facility] Comment on above: Please Note: New Teresa t Units and Gender Specific Reference Ranges. For more information see Policy Stat Procedure [place] High Sensitivity Troponin (TNIH) and attachments. No Panel InformationOrdered By: Dr. Amin on 08-11-2022 D-Dimer Quantitative (PE/DVT) 0.88 FEU/ug/m 0.27-0.49 [facility] Comment on above: D-Dimer ELEVATED (>0 .49): Additional studies and clinicalassessments are indicated to conclude diagnosis of:Deep Vein Thrombosis (DVT) or Pulmonary Embolism (PE)CRITICAL VALUE VERIFIED. CALLED TO ELVIRA TOLBERT08/11/22 1410 Jocelyn Acuna.RESULTS READ BACK BY SAME . Serum procalcitonin measurem entOrdered By: Dr. Rogers on 08-11-2022 Procalcitonin [Mass/Vol] ng/mL 0.00-0.09 [facility] Comment on above: A procalcitonin (PCT ) level above 2.0 ng/mL on the first day of ICU admission is associated with a high risk for progression to severe sepsis and/or septic shock. A PCT level below 0.5 ng/mL on the first day of ICU admission is associated with a low risk for progression to severe and/or septic shock. Note: Concentrations <0.5 ng/mL do not exclude an infection on account of localized infections (without systemic signs) which can be associated with such low concentrations, or a systemic infection in its initial stages (<6 hours). Furthermore, increased procalcitonin can occur without infection. PCT concentrations between 0.5 and 2.0 ng/mL should be interpreted taking into account the patient's history. It is recommended to retest PCT within 6-24 hours if any concentrations <2 ng/mL are obtained. Absolute lymphocyte countOrd ered By: Neville Serrano on 06-04-2022 Lymphocytes Auto (Unsp spec) [#/Vol] 2.75 10*3/uL 0.83-4.51 [facility] Basophil percentageOrdered B y: Neville Serrano on 06-04-2022 Basophils/100 WBC (Bld) 0.9 % 0-1 [facility] Bilirubin [Mass/Vol] 0.20 mg/dL 0.20-1.00 [facility] Comment on above: For patients on eltr ombopag therapy, use of Dimension [place] TBIL is not recommended. Chloride [Moles/Vol] 107 mmol/L 98-107 [facility] Eosinophils/100 WBC (Bld) 2.1 % 0-5 [facility] Glucose [Mass/Vol] 94 mg/dL 74-106 [facility] Neutrophils (Bld) [#/Vol] 4.4 10*3/uL 2.0-7.7 [facility] Neutrophils/100 WBC (Bld) 54.4 % 47-70 [facility] Potassium [Moles/Vol] 4.3 mmol/L 3.5-5.1 [facility] Comment on above: Slight Hemolysis, Re sult may be falsely increased. Protein [Mass/Vol] 7.1 g/dL 6.4-8.2 [facility] Sodium [Moles/Vol] 140 mmol/L 136-145 [facility] WBC (Bld) [#/Vol] 8.0 10*3/uL 4.4-11.0 [facility] Blood erythrocytes count (nu mber/volume)Ordered By: Neville Serrano on 06-04-2022 RBC (Bld) [#/Vol] 4.74 10*6/uL 4.2-5.4 [facility] Blood hemoglobin measurement (mass/volume)Ordered By: Neville Serrano on 06-04-2022 Hemoglobin (Bld) [Mass/Vol] 13.7 g/dL 12.0-15.0 [facility] Blood lymphocytes/100 leukoc ytesOrdered By: Neville Serrano on 06-04-2022 Lymphocytes/100 WBC (Bld) 34.3 % 19-41 [facility] Blood monocytes/100 leukocyt esOrdered By: Neville Serrano on 06-04-2022 Monocytes/100 WBC (Bld) 8.1 % 0-10 [facility] Blood platelet mean volumeOr dered By: Neville Serrano on 06-04-2022 Platelet mean volume (Bld) [Entitic vol] 12.8 fL 6.2-12.0 [facility] Determination of erythrocyte mean corpuscular volume (MCV)Ordered By: Neville Serrano on 06-04-2022 MCV (RBC) [Entitic vol] 90.9 fL 81-99 [facility] Hematocrit Auto (Bld) [Volum e fraction]Ordered By: Neville Serrano on 06-04-2022 Hematocrit (Bld) [Volume fraction] 43.1 % 37-47 [facility] Laboratory - Chemistry and C hemistry - challengeOrdered By: Neville Serrano on 06-04-2022 ALP [Catalytic activity/Vol] 82 U/L 45-117 [facility] ALT [Catalytic activity/Vol] 20 U/L 13-56 [facility] CO2 [Moles/Vol] 24.0 mmol/L 21.0-32.0 [facility] Globulin (S) [Mass/Vol] 3.6 g/dL 2.2-4.2 [facility] Urea nitrogen/Creatinine [Mass ratio] 16.6 mg/mg 10-20 [facility] Laboratory - Hematology and Cell countsOrdered By: Neville Serrano on 06-04-2022 Erythrocyte distribution width (RBC) [Entitic vol] 41.8 fL 35.1-43.9 [facility] Erythrocyte distribution width (RBC) [Ratio] 12.6 % 11.6-14.6 [facility] Immature granulocytes/100 WBC (Bld) 0.200 % 0.0-0.9 [facility] Comment on above: IG% - Immature Granu locytes (promyelocytes, myelocytes and metamyelocytes) > 1% indicates that a LEFT SHIFT is Present. MCH (RBC) [Entitic mass] 28.9 pg 27.0-32.0 [facility] Nucleated RBC/100 WBC (Bld) [Ratio] 0 % 0-5 [facility] MCHC Auto (RBC) [Mass/Vol]Or dered By: Neville Serrano on 06-04-2022 MCHC (RBC) [Mass/Vol] 31.8 g/dL 32-36 [facility] No Panel InformationOrdered By: Neville Serrano on 06-04-2022 Estimated GFR (MDRD) Amer 35 mL/min >60 [facility] Comment on above: GFR Calc Estimated GFR (MDRD) Non-Af Amer 29 mL/min >60 [facility] Comment on above: Non- GFR Calc Thyroid Stimulating Hormone (TSH) 1.79 uIU/mL 0.358-3.74 [facility] Vitamin D 25-Hydroxy 18.4 ng/mL [facility] Comment on above: Vitamin D 25(OH) Sta tus Range Deficiency <20 ng/mL (50nmol/L) Insufficiency 20 - 30 ng/mL (50 - 75 nmol/L) Sufficiency 30 - 100 ng/mL (75 - 250 nmol/L) Toxicity >100 ng/mL (>250 nmol/L) Platelets bldOrdered By: Neville Serrano on 06-04-2022 Platelets (Bld) [#/Vol] 221 10*3/uL 150-450 [facility] Serum or plasma albumin andreas urement (mass/volume)Ordered By: Neville Serrano on 06-04-2022 Albumin [Mass/Vol] 3.5 g/dL 3.2-5.0 [facility] Serum or plasma albumin/glob ulin mass ratioOrdered By: Neville Zach on 06-04-2022 Albumin/Globulin [Mass ratio] 1.0 {ratio} 0.9-2.4 [facility] Serum or plasma calcium andreas urement (mass/volume)Ordered By: Neville Zach on 06-04-2022 Calcium [Mass/Vol] 9.0 mg/dL 8.5-10.1 [facility] Serum or plasma creatinine m easurement (mass/volume)Ordered By: Neville Zach on 06-04-2022 Creatinine [Mass/Vol] 1.75 mg/dL 0.55-1.02 [facility] Comment on above: The validity of the calculated GFR & GFRAA in patients over 70 years has not been determined. Clinical correlation is essential. Serum or plasma urea nitroge n measurement (mass/volume)Ordered By: Neville Zach on 06-04-2022 Urea nitrogen [Mass/Vol] 29 mg/dL 7-18 [facility] Thin prep Papanicolaou smear with manual screeningOrdered By: [facility] 06-04[facility]22 Thin prep Papanicolaou smear with manual screening 19 U/L 15-37 [facility] Comment on above: Slight Hemolysis, Re sult may be falsely increased. Thin prep Papanicolaou smear with manual screening 9 5-15 [facility] Absolute lymphocyte counton 11-29-2021 Lymphocytes Auto (Unsp spec) [#/Vol] 3.35 10*3/uL 0.83-4.51 [facility] Work Phone: Basophil percentageon 2021 Basophils/100 WBC (Bld) 0.9 % 0-1 [facility] Work Phone: Bilirubin [Mass/Vol] 0.30 mg/dL 0.20-1.00 [facility] Work Phone: Comment on above: For patients on eltr ombopag therapy, use of Dimension [place] TBIL is not recommended. Chloride [Moles/Vol] 111 mmol/L 98-107 [facility] Work Phone: Eosinophils/100 WBC (Bld) 3.0 % 0-5 [facility] Work Phone: Glucose [Mass/Vol] 102 mg/dL 74-106 [facility] Work Phone: Comment on above: Fasting Glucose resu lt from 100 to 125 mg/dL suggests IMPAIRED HOMEOSTASIS per A.D.A. criteria. Neutrophils (Bld) [#/Vol] 3.5 10*3/uL 2.0-7.7 [facility] Work Phone: Neutrophils/100 WBC (Bld) 44.4 % 47-70 [facility] Work Phone: Potassium [Moles/Vol] 4.5 mmol/L 3.5-5.1 [facility] Work Phone: Comment on above: Moderate Hemolysis, Result may be falsely increased. Protein [Mass/Vol] 6.7 g/dL 6.4-8.2 [facility] Work Phone: [phone] Sodium [Moles/Vol] 139 mmol/L 136-145 [facility] Work Phone: [phone] WBC (Bld) [#/Vol] 7.9 10*3/uL 4.4-11.0 [facility] Work Phone: Blood erythrocytes count (nu mber/volume)on 11-29-2021 RBC (Bld) [#/Vol] 4.41 10*6/uL 4.2-5.4 [facility] Work Phone: Blood hemoglobin measurement (mass/volume)on 11-29-2021 Hemoglobin (Bld) [Mass/Vol] 13.1 g/dL 12.0-15.0 [facility] Work Phone: Blood lymphocytes/100 leukoc yteson 11-29-2021 Lymphocytes/100 WBC (Bld) 42.4 % 19-41 [facility] Work Phone: Blood monocytes/100 leukocyt eson 11-29-2021 Monocytes/100 WBC (Bld) 8.9 % 0-10 [facility] Work Phone: Blood platelet mean volumeon 11-29-2021 Platelet mean volume (Bld) [Entitic vol] 11.8 fL 6.2-12.0 [facility] Work Phone: Determination of erythrocyte mean corpuscular volume (MCV)on 11-29-2021 MCV (RBC) [Entitic vol] 88.2 fL 81-99 [facility] Work Phone: Hematocrit Auto (Bld) [Volum e fraction]on 11-29-2021 Hematocrit (Bld) [Volume fraction] 38.9 % 37-47 [facility] Work Phone: Laboratory - Chemistry and C hemistry - challengeon 11-29-2021 ALP [Catalytic activity/Vol] 82 U/L 45-117 [facility] Work Phone: ALT [Catalytic activity/Vol] 21 U/L 13-56 [facility] Work Phone: CO2 [Moles/Vol] 22.0 mmol/L 21.0-32.0 [facility] Work Phone: Globulin (S) [Mass/Vol] 3.6 g/dL 2.2-4.2 [facility] Work Phone: Urea nitrogen/Creatinine [Mass ratio] 22.9 mg/mg 10-20 [facility] Work Phone: Laboratory - Hematology and Cell countson 11-29-2021 Erythrocyte distribution width (RBC) [Entitic vol] 40.5 fL 35.1-43.9 [facility] Work Phone: Erythrocyte distribution width (RBC) [Ratio] 12.5 % 11.6-14.6 [facility] Work Phone: Immature granulocytes/100 WBC (Bld) 0.400 % 0.0-0.9 [facility] Work Phone: Comment on above: IG% - Immature Granu locytes (promyelocytes, myelocytes and metamyelocytes) > 1% indicates that a LEFT SHIFT is Present. MCH (RBC) [Entitic mass] 29.7 pg 27.0-32.0 [facility] Work Phone: Nucleated RBC/100 WBC (Bld) [Ratio] 0 % 0-5 [facility] Work Phone: MCHC Auto (RBC) [Mass/Vol]on 11-29-2021 MCHC (RBC) [Mass/Vol] 33.7 g/dL 32-36 [facility] Work Phone: No Panel Informationon 11-29 Estimated GFR (MDRD) Amer 56 mL/min >60 [facility] Work Phone: Comment on above: GFR Calc Estimated GFR (MDRD) Non-Af Amer 46 mL/min >60 [facility] Work Phone: Comment on above: Non- GFR Calc Thyroid Stimulating Hormone (TSH) 1.73 uIU/mL 0.358-3.74 [facility] Work Phone: Vitamin D 25-Hydroxy 21.3 ng/mL [facility] Work Phone: Comment on above: Vitamin D 25(OH) Sta tus Range Deficiency <20 ng/mL (50nmol/L) Insufficiency 20 - 30 ng/mL (50 - 75 nmol/L) Sufficiency 30 - 100 ng/mL (75 - 250 nmol/L) Toxicity >100 ng/mL (>250 nmol/L) Platelets bldon 11-29-2021 Platelets (Bld) [#/Vol] 207 10*3/uL 150-450 [facility] Work Phone: Serum or plasma albumin andreas urement (mass/volume)on 11-29-2021 Albumin [Mass/Vol] 3.1 g/dL 3.2-5.0 [facility] Work Phone: Serum or plasma albumin/glob ulin mass ratioon 11-29-2021 Albumin/Globulin [Mass ratio] 0.9 {ratio} 0.9-2.4 [facility] Work Phone: Serum or plasma calcium andreas urement (mass/volume)on 11-29-2021 Calcium [Mass/Vol] 8.5 mg/dL 8.5-10.1 [facility] Work Phone: Serum or plasma creatinine m easurement (mass/volume)on 11-29-2021 Creatinine [Mass/Vol] 1.18 mg/dL 0.55-1.02 [facility] Work Phone: Comment on above: The validity of the calculated GFR & GFRAA in patients over 70 years has not been determined. Clinical correlation is essential. Serum or plasma urea nitroge n measurement (mass/volume)on 11-29-2021 Urea nitrogen [Mass/Vol] 27 mg/dL 7-18 [facility] Work Phone: Thin prep Papanicolaou smear with manual screeningon 11-29-2021 Thin prep Papanicolaou smear with manual screening 28 U/L 15-37 [facility] Work Phone: Comment on above: Moderate Hemolysis, Result may be falsely increased. Thin prep Papanicolaou smear with manual screening 6 5-15 [facility] Work Phone: Office Visit: BETHEL: ismael miranda 03-28-2017 Documentation of current medications (procedure) Done Invalid Interpretation Code [facility] Work Phone: Fall risk assessment No Invalid Interpretation Code [facility] Work Phone: Tobacco use CPHS Never smoker Invalid Interpretation Code [facility] Work Phone: Vital Signs Date Time Vital Sign Value Performing Clinician Facility 02-22-2025 12:37-0400 Body height 160.[address] Neville Serrano MD Work Phone: [facility] 02-22-2025 12:37-0400 Body mass index (BMI) [Ratio] 39.3 kg/m2 Dr. Neville Serrano MD Work Phone: [facility] 02-22-2025 12:37-0400 Body weight 100.[address] Neville Serrano MD Work Phone: 6(060)679-629206 [place] [address] 02-22-2025 12:37-0400 Diastolic blood pressure 83 mm[Hg] Dr. Neville Serrano MD Work Phone: 9(633)823-314214 [place] [address] 02-22-2025 12:37-0400 Heart rate 83 /min Dr. Neville Serrano MD Work Phone: 6(159)684-767214 [place] [address] 02-22-2025 12:37-0400 Respiratory rate 18 /min Dr. Neville Serrano MD Work Phone: 2(082)508-253814 [place] [address] 02-22-2025 12:37-0400 SaO2% (BldA) [Mass fraction] 93 % Dr. Neville Serrano MD Work Phone: 7(094)688-780714 [place] [address] 02-22-2025 12:37-0400 Systolic blood pressure 164 mm[Hg] Dr. Neville Serrano MD Work Phone: 7(005)745-824914 [place] [address] 04-26-2024 13:00-0500 Body temperature 98.1 [degF] Dr. Neville Serrano MD Work Phone: 6(942)712-112114 [place] [address] 04-26-2024 13:00-0500 Diastolic blood pressure 79 mm[Hg] Dr. Neville Serrano MD Work Phone: 4(100)385-148314 [place] [address] 04-26-2024 13:00-0500 Heart rate 77 /min Dr. Neville Serrano MD Work Phone: 8(933)500-339006 [place] [address] 04-26-2024 13:00-0500 Respiratory rate 18 /min Dr. Neville Serrano MD Work Phone: 3(341)015-641614 [place] [address] 04-26-2024 13:00-0500 SaO2% (BldA) [Mass fraction] 97 % Dr. Neville Serrano MD Work Phone: 4(347)830-800214 [place] [address] 04-26-2024 13:00-0500 Systolic blood pressure 130 mm[Hg] Dr. Neville Serrano MD Work Phone: 9(426)017-405106 [place] [address] 04-26-2024 06:34-0500 Body mass index (BMI) [Ratio] 38.8 kg/m2 Dr. Neville Serrano MD Work Phone: 8(815)108-721306 [place] [address] 04-26-2024 06:34-0500 Body weight 99.[address] Neville Serrano MD Work Phone: 3(687)540-519406 [place] [address] 04-25-2024 08:33-0500 Body height 160.[address] Neville Serrano MD Work Phone: 6(621)922-670906 [place] [address] 04-25-2024 06:08-0500 Inhaled oxygen flow rate 2 L/min Dr. Neville Serrano MD Work Phone: 6(098)035-716806 [place] [address] 04-25-2024 04:58-0500 Inhaled oxygen concentration 93 % Dr. Neville Serrano MD Work Phone: 8(118)622-127606 [place] [address] 08-13-2023 06:34-0400 Body temperature 97.4 [degF] Dr. Neville Serrano Work Phone: 2(082)666-182606 [place] [address] 08-13-2023 06:34-0400 Diastolic blood pressure 62 mm[Hg] Dr. Neville Serrano Work Phone: 0(405)017-571306 [place] [address] 08-13-2023 06:34-0400 Heart rate 84 /min Dr. Neville Serrano Work Phone: 4(990)039-694406 [place] [address] 08-13-2023 06:34-0400 Respiratory rate 16 /min Dr. Neville Serrano Work Phone: [facility] 08-13-2023 06:34-0400 SaO2% (BldA) [Mass fraction] 99 % Dr. Neville Serrano Work Phone: [facility] 08-13-2023 06:34-0400 Systolic blood pressure 132 mm[Hg] Dr. Neville Serrano Work Phone: [facility] 08-13-2023 04:03-0400 Body height 160.[address] Neville Serrano Work Phone: [facility] 08-13-2023 04:03-0400 Body mass index (BMI) [Ratio] 39.9 kg/m2 Dr. Neville Serrano Work Phone: 4(238)783-837306 [place] [address] 08-13-2023 04:03-0400 Body weight 102.[address] Neville Serrano Work Phone: 7(889)378-592606 [place] [address] 06-24-2023 08:25-0500 Body height 160.[address] Neville Serrano Work Phone: 7(202)085-110714 [place] [address] 06-24-2023 08:25-0500 Body mass index (BMI) [Ratio] 37.7 kg/m2 Dr. Neville Serrano Work Phone: 9(363)371-053761 [address] 06-24-2023 08:25-0500 Body weight 96.[address] Neville Serrano Work Phone: 1(489)437-727514 [place] [address] 06-24-2023 08:25-0500 Diastolic blood pressure 80 mm[Hg] Dr. Neville Serrano Work Phone: 7(625)232-222914 [place] [address] 06-24-2023 08:25-0500 Heart rate 98 /min Dr. Neville Serrano Work Phone: 0(201)689-141014 [place] [address] 06-24-2023 08:25-0500 Respiratory rate 18 /min Dr. Neville Serrano Work Phone: 4(019)250-929214 [place] [address] 06-24-2023 08:25-0500 SaO2% (BldA) [Mass fraction] 99 % Dr. Neville Serrano Work Phone: 6(939)879-185006 [place] [address] 06-24-2023 08:25-0500 Systolic blood pressure 143 mm[Hg] Dr. Neville Serrano Work Phone: 4(927)871-729906 [place] [address] 03-18-2023 12:24-0500 Body height 160.[address] Neville Serrano Work Phone: 5(110)825-394706 [place] [address] 03-18-2023 12:24-0500 Body mass index (BMI) [Ratio] 37.3 kg/m2 Dr. Neville Serrano Work Phone: 2(515)974-987461 [address] 03-18-2023 12:24-0500 Body weight 95.[address] Neville Serrano Work Phone: [facility] 03-18-2023 12:24-0500 Diastolic blood pressure 77 mm[Hg] Dr. Neville Serrano Work Phone: [facility] 03-18-2023 12:24-0500 Heart rate 81 /min Dr. Neville Serrano Work Phone: [facility] 03-18-2023 12:24-0500 Respiratory rate 18 /min Dr. eNville Serrano Work Phone: [facility] 03-18-2023 12:24-0500 SaO2% (BldA) [Mass fraction] 94 % Dr. Neville Serrano Work Phone: 8(527)968-693906 [place] [address] 03-18-2023 12:24-0500 Systolic blood pressure 138 mm[Hg] Dr. Neville Serrano Work Phone: 2(620)583-887914 [place] [address] 03-08-2023 11:34-0400 Body temperature 98.2 [degF] Dr. Neville Serrano Work Phone: 4(173)691-266406 [place] [address] 03-08-2023 11:34-0400 Diastolic blood pressure 52 mm[Hg] Dr. Neville Serrano Work Phone: 2(547)004-579706 [place] [address] 03-08-2023 11:34-0400 Heart rate 70 /min Dr. Neville Serrano Work Phone: 0(218)072-448114 [place] [address] 03-08-2023 11:34-0400 Respiratory rate 20 /min Dr. Neville Serrano Work Phone: 9(942)366-317006 [place] [address] 03-08-2023 11:34-0400 SaO2% (BldA) [Mass fraction] 95 % Dr. Neville Serrano Work Phone: 7(566)838-524306 [place] [address] 03-08-2023 11:34-0400 Systolic blood pressure 115 mm[Hg] Dr. Neville Serrano Work Phone: 8(182)619-738206 [place] [address] 03-07-2023 21:40-0400 Body mass index (BMI) [Ratio] 37.1 kg/m2 Dr. Neville Serrano Work Phone: 8(439)647-250906 [place] [address] 03-07-2023 21:40-0400 Body weight 95.[address] Neville Serrano Work Phone: 7(328)193-922006 [place] [address] 03-07-2023 12:21-0400 Inhaled oxygen flow rate 2 L/min Dr. Neville Serrano Work Phone: 1(602)919-204206 [place] [address] 03-07-2023 08:40-0400 Body height 160.[address] Neville Serrano Work Phone: 8(409)221-515106 [place] [address] 03-07-2023 06:31-0400 Diastolic blood pressure 69 mm[Hg] Dr. Neville Serrano Work Phone: 5(508)830-047714 [place] [address] 03-07-2023 06:31-0400 Heart rate 78 /min Dr. Neivlle Serrano Work Phone: 4(801)699-435306 [place] [address] 03-07-2023 06:31-0400 Inhaled oxygen flow rate 2 L/min Dr. Neville Serrano Work Phone: 0(017)882-259514 [place] [address] 03-07-2023 06:31-0400 Respiratory rate 20 /min Dr. Neville Serrano Work Phone: 7(755)245-034514 [place] [address] 03-07-2023 06:31-0400 SaO2% (BldA) [Mass fraction] 94 % Dr. Neville Serrano Work Phone: 1(817)481-227606 [place] [address] 03-07-2023 06:31-0400 Systolic blood pressure 118 mm[Hg] Dr. Neville Serrano Work Phone: 2(810)635-185306 [place] [address] 03-07-2023 06:10-0400 Body temperature 97.9 [degF] Dr. Neville Serrano Work Phone: 7(089)760-269906 [place] [address] 03-07-2023 04:30-0400 Body height 160.[address] Neville Serrano Work Phone: 0(035)962-133806 [place] [address] 03-07-2023 04:30-0400 Body mass index (BMI) [Ratio] 39.2 kg/m2 Dr. Neville Serrano Work Phone: 3(750)532-208614 [place] [address] 03-07-2023 04:30-0400 Body weight 100.[address] Neville Serrano Work Phone: [facility] 03-04-2023 13:51-0400 Body temperature 97.8 [degF] Dr. Neville Serrano Work Phone: [facility] 03-04-2023 13:51-0400 Diastolic blood pressure 54 mm[Hg] Dr. Neville Serrano Work Phone: 4(573)388-510206 [place] [address] 03-04-2023 13:51-0400 Heart rate 83 /min Dr. Neville Serrano Work Phone: 9(959)589-758106 [place] [address] 03-04-2023 13:51-0400 Respiratory rate 17 /min Dr. Neville Serrano Work Phone: 2(479)471-795306 [place] [address] 03-04-2023 13:51-0400 SaO2% (BldA) [Mass fraction] 98 % Dr. Neville Serrano Work Phone: 3(985)699-695306 [place] [address] 03-04-2023 13:51-0400 Systolic blood pressure 122 mm[Hg] Dr. Neville Serrano Work Phone: [facility] 03-01-2023 06:00-0400 Inhaled oxygen flow rate 2 L/min Dr. Neville Serrano Work Phone: 6(495)843-734306 [place] [address] 02-28-2023 14:49-0400 Body height 160.[address] Neville Serrano Work Phone: 1(501)683-052106 [place] [address] 02-28-2023 14:49-0400 Body mass index (BMI) [Ratio] 36.6 kg/m2 Dr. Neivlle Serrano Work Phone: [facility] 02-28-2023 14:49-0400 Body weight 93.[address] Neville Serrano Work Phone: 3(852)220-818806 [place] [address] 02-28-2023 13:00-0400 Body temperature 97.6 [degF] [facility] 02-28-2023 13:00-0400 Diastolic blood pressure 78 mm[Hg] [facility] 02-28-2023 13:00-0400 Heart rate 78 /min [facility] 02-28-2023 13:00-0400 Respiratory rate 14 /min [facility] 02-28-2023 13:00-0400 SaO2% (BldA) [Mass fraction] 100 % [facility] 02-28-2023 13:00-0400 Systolic blood pressure 110 mm[Hg] [facility] 02-28-2023 10:10-0400 Body height 160.02 cm [facility] 02-28-2023 10:10-0400 Body mass index (BMI) [Ratio] 37.2 kg/m2 [facility] 02-28-2023 10:10-0400 Body weight 95.25 kg [facility] 09-16-2022 14:05-0400 Body weight 93.[address] Neville Serrano Work Phone: 0(441)392-175506 [place] [address] 09-16-2022 14:05-0400 Diastolic blood pressure 60 mm[Hg] Dr. Neville Serrano Work Phone: 8(917)401-135906 [place] [address] 09-16-2022 14:05-0400 Heart rate 74 /min Dr. Neville Serrano Work Phone: 3(169)403-727406 [place] [address] 09-16-2022 14:05-0400 Respiratory rate 18 /min Dr. Neville Serrano Work Phone: 8(576)596-434206 [place] [address] 09-16-2022 14:05-0400 Systolic blood pressure 149 mm[Hg] Dr. Neville Serrano Work Phone: [facility] 09-16-2022 09:48-0400 Body height 160.[address] Neville Serrano Work Phone: [facility] 08-13-2022 08:38-0400 Body temperature 98 [degF] Dr. Neville Serrano Work Phone: 9(568)769-706106 [place] [address] 08-13-2022 08:38-0400 Diastolic blood pressure 48 mm[Hg] Dr. Neville Serrano Work Phone: 3(475)573-163106 [place] [address] 08-13-2022 08:38-0400 Heart rate 78 /min Dr. Neville Serrano Work Phone: 1(149)154-724006 [place] [address] 08-13-2022 08:38-0400 Respiratory rate 18 /min Dr. Neville Serrano Work Phone: [facility] 08-13-2022 08:38-0400 SaO2% (BldA) [Mass fraction] 95 % Dr. Neville Serrano Work Phone: [facility] 08-13-2022 08:38-0400 Systolic blood pressure 134 mm[Hg] Dr. Neville Serrano Work Phone: [facility] 08-13-2022 08:18-0400 Body mass index (BMI) [Ratio] 34.7 kg/m2 Dr. Neville Serrano Work Phone: [facility] 08-13-2022 08:18-0400 Body weight 88.[address] Neville Serrano Work Phone: [facility] 08-12-2022 10:40-0400 Body height 160.[address] Neville Serrano Work Phone: [facility] 03-28-2017 15:45-0500 BMI (Body Mass Index) 35.78 kg/m2 Steve [facility]USTON [facility] Work Phone: 03-28-2017 15:45-0500 Body Temperature 98.4 [degF] Steve [facility]USTON [facility] Work Phone: 03-28-2017 15:45-0500 BP Diastolic 74 mm[Hg] Steve HUSTON [facility] Work Phone: 03-28-2017 15:45-0500 BP Systolic 142 mm[Hg] Steve HUSTON [facility] Work Phone: 03-28-2017 15:45-0500 Height 160.02 cm Steve HUSTON [facility] Work Phone: 03-28-2017 15:45-0500 Pulse (Heart Rate) 82 /min Steve HUSTON [facility] Work Phone: 03-28-2017 15:45-0500 Respiratory Rate 15 /min Steve [facility]USTON [facility] Work Phone: 03-28-2017 15:45-0500 Weight 91.63 kg Steve HUSTON [facility] Work Phone: Encounters Encounter Date Encounter Type Care Provider Facility Start: 02-22-2025 End: 02-22-2025 Patient encounter procedure Rebecca Bhatt 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 Neville Serrano MD Work Phone: -Laboratory Phy Office 3rd Flr Start: 01-18-2025 End: 01-18-[address] Neville Serrano MD -Laboratory Phy Office 3rd Flr Start: 01-18-2025 End: 01-18-2025 ambulatory [facility] Facility:[facility] Start: 08-12-2024 End: 08-12-2024 ambulatory Jeovanny Bal Facility:[facility] Start: 06-29-2024 End: 06-29-[address] Neville Serrano MD Work Phone: [facility] Work Phone: Start: 06-29-2024 End: 06-29-[address] Neville Serrano MD -Laboratory, Phy Office 3rd Flr Start: 06-29-2024 End: 06-29-2024 ambulatory Neville Jemal Zach Facility:[facility] Start: 06-15-2024 End: 06-15-[address] Neville Serrano MD -Laboratory Work Phone: Start: 06-15-2024 End: 06-15-20[facility] Facility:[facility] Start: 06-02-2024 End: 06-02-[address] Neville Serrano MD -Laboratory, Phy Office 3rd Flr Start: 06-02-2024 End: 06-02-2024 ambulatory [facility] Facility:[facility] Start: 05-04-2024 End: 05-04-[address] Neville Serrano MD -Laboratory Work Phone: Start: 05-04-2024 End: 05-04-2024 ambulatory Neville Serrano Facility:[facility] Start: 04-26-2024 Non-patient / Non-visit Dr. Tien Varma MD -[facility] Work Phone: Start: 04-25-2024 End: 04-26-2024 Evaluation and management of inpatient Dr. Tien Varma MD -Progressive Care Unit Work Phone: Start: 04-25-2024 ambulatory Tien Varma Facility: [facility] Start: 04-25-2024 Non-patient / Non-visit Dr. Arline Peguero MD -[place] [facility] Work Phone: Start: 08-13-2023 End: 08-13-2023 Emergency department patient visit Dr. Neville Serrano Work Phone: [facility]Emergency Department Work Phone: Start: 07-30-2023 Non-patient / Non-visit Dr. Loy Serrano Work Phone: [facility] Start: 07-30-2023 End: 07-30-[address] Neville Serrano Work Phone: [facility] Work Phone: Start: 07-30-2023 End: 07-30-[address] [facility] Start: 06-24-2023 End: 06-24-[address] Neville Serrano Work Phone: [facility] Work Phone: Start: 06-09-2023 End: 06-09-[address] Neville Serrano Work Phone: [facility] Work Phone: Start: 06-09-2023 End: 06-09-[address] Neville Serrano Work Phone: [facility]-Laboratory, Phy Office 3rd Flr Start: 03-18-2023 End: 03-18-[address] Neville Serrano Work Phone: [facility] Work Phone: Start: 03-08-2023 Non-patient / Non-visit Dr. Loy Serrano Work Phone: [facility] Work Phone: Start: 03-07-2023 Non-patient / Non-visit Dr. Loy Serrano Work Phone: [facility] Start: 03-07-2023 End: 03-08-2023 Evaluation and management of inpatient Dr. Neville Serrano Work Phone: [facility]Progressive [facility] Work Phone: Start: 03-07-2023 End: 03-08-[address] Neville Serrano Work Phone: [facility] Work Phone: Start: 03-07-2023 Non-patient / Non-visit Dr. Loy Serrano Work Phone: [facility] Work Phone: Start: 03-04-2023 Non-patient / Non-visit Dr. Loy Serrano Work Phone: [facility] Work Phone: Start: 03-04-2023 Non-patient / Non-visit Dr. Loy Serrano Work Phone: [facility] Start: 03-04-2023 End: 03-04-2023 Non-patient / Non-visit Dr. Neville Serrano Work Phone: [facility] Work Phone: Start: 03-03-2023 Non-patient / Non-visit Dr. Loy Serrano Work Phone: [facility] Start: 03-02-2023 Non-patient / Non-visit Dr. Loy Serrano Work Phone: [facility] Work Phone: Start: 03-01-2023 Non-patient / Non-visit Dr. Loy Serrano Work Phone: [facility] Start: 02-28-2023 Non-patient / Non-visit Dr. Loy Serrano Work Phone: [facility] Work Phone: Start: 02-28-2023 End: 03-04-2023 Evaluation and management of inpatient [facility] Work Phone: Start: 12-05-2022 End: 12-05-[address] Neville Serrano Work Phone: [facility] Work Phone: Start: 12-05-2022 End: 12-05-[address] Neville Serrano Work Phone: [facility]-Laboratory, Phy Office 3rd Flr Start: 09-25-2022 Non-patient / Non-visit Dr. Loy Serrano Work Phone: [facility] Start: 09-25-2022 End: 09-25-[address] Neville Serrano Work Phone: [facility] Work Phone: Start: 09-25-2022 End: 09-25-[address] [facility] Start: 09-16-2022 End: 09-16-[address] Neville Serrano Work Phone: [facility] Start: 08-13-2022 Non-patient / Non-visit Dr. Loy Serrano Work Phone: [facility] Start: 08-12-2022 Non-patient / Non-visit Dr. Loy Serrano Work Phone: [facility] Start: 08-11-2022 End: 08-13-2022 Evaluation and management of inpatient Dr. Neville Serrano Work Phone: [facility] Start: 06-26-2022 End: 06-26-2022 ambulatory [facility] Work Phone: Start: 06-26-2022 End: 06-26-2022 Patient encounter procedure [facility] Start: 06-04-2022 End: 06-04-2022 ambulatory [facility] Work Phone: Start: 06-04-2022 End: 06-04-2022 Patient encounter procedure [facility], Phy Office 3rd Flr Start: 11-29-2021 End: 11-29-2021 Patient encounter procedure [facility] Phy Office 3rd Flr Procedures Date Procedure Procedure Detail Performing Clinician Start: 01-18-2025 Vitamin D, 25-hydrox y measurement Dr. Neville Serrano MD Work Phone: Comment on above: Vitamin D StatusDefi ciency: <20 ng/mL (50nmol/L)Insufficiency: 20-30 ng/mL (50-75 nmol/L)Sufficiency: 30-100 ng/mL (75-250 nmol/L)Toxicity: >100 ng/mL (>250 nmol/L) Start: 04-26-2024 XR knee, [address] Loy Serrano MD Work Phone: Start: 04-25-2024 Plain chest X-ray Dr. Stephanie Serrano MD Work Phone: Start: 08-13-2023 SARS-CoV-2, Influenz a & RSV (PCR) Dr. Neville Serrano Work Phone: Start: 08-13-2023 Plain chest X-ray Dr. Stephanie Serrano Work Phone: Start: 03-08-2023 Plain chest X-ray Dr. Stephanie Serrano Work Phone: Start: 03-07-2023 Plain chest X-ray Dr. Stephanie Serrano Work Phone: Start: 02-28-2023 Plain chest X-ray Start: 09-25-2022 Cardiovascular stres s test using pharmacologic stress agent Dr. Neville Serrano Work Phone: Start: 08-12-2022 Legionella pneumophi la antigen assay Dr. Neville Serrano Work Phone: Start: 08-12-2022 Respiratory Panel (PCR) Dr. Neville Serrano Work Phone: Start: 08-12-2022 Streptococcus pneumo niae Antigen (M Dr. Neville Serrano Work Phone: Start: 08-11-2022 CT angiography of ch est with contrast Dr. Neville Serrano Work Phone: Start: 08-11-2022 Plain chest X-ray Dr. Stephanie Serrano Work Phone: Start: 06-26-2022 US urinary tract Respiratory Panel (PCR) Dr. Neville Serrano Work Phone: Plan of Treatment Date Care Activity Detail Author Start: 04-26-2024 Patient discharge [facility] Start: 04-26-2024 Referral to service [facility] Start: 04-25-2024 Following clinical pathway protocol [facility] Start: 04-25-2024 Ambulation without limitation [facility] Start: 04-25-2024 Assessment of risk of venous thromboembolism [facility] Start: 04-25-2024 Insertion of catheter into peripheral vein [facility] Start: 04-25-2024 Measuring intake and output [facility] Start: 04-25-2024 Oxygen therapy [facility] Start: 04-25-2024 Providing care according to standard [facility] Start: 04-25-2024 [facility] Start: 04-25-2024 Admission procedure [facility] Start: 08-13-2023 [facility] Start: 03-08-2023 Patient discharge [facility] Start: 03-07-2023 Following clinical pathway protocol [facility] Start: 03-07-2023 Elevation of affected extremity [facility] Start: 03-07-2023 Fluid restriction [facility] Start: 03-07-2023 Notification of physician [facility] Start: 03-07-2023 Patient education [facility] Start: 03-07-2023 Application of elastic bandage [facility] Start: 03-07-2023 Assessment of risk of venous thromboembolism [facility] Start: 03-07-2023 Incentive spirometry [facility] Start: 03-07-2023 Inhalation therapy procedure [facility] Start: 03-07-2023 Insertion of catheter into peripheral vein [facility] Start: 03-07-2023 Introduction of urinary catheter [facility] Start: 03-07-2023 Measuring intake and output [facility] Start: 03-07-2023 Oxygen therapy [facility] Start: 03-07-2023 Providing care according to standard [facility] Start: 03-07-2023 Provision of activity privileges [facility] Start: 03-07-2023 Referral to [place] line attendant [facility] Start: 03-07-2023 Referral to occupational therapist [facility] Start: 03-07-2023 Referral to service [facility] Start: 03-07-2023 [facility] Start: 03-07-2023 Measurement of occult blood in stool specimen using immunoassay [facility] Start: 03-07-2023 Verification routine [facility] Start: 03-07-2023 Admission procedure [facility] Start: 03-07-2023 Hospital admission, emergency, from emergency room, medical nature [facility] Start: 03-07-2023 [facility] Start: 03-04-2023 Patient discharge [facility] Start: 03-03-2023 Patient referral [facility] Work Phone: Start: 03-03-2023 Cardiac monitoring [facility] Start: 03-03-2023 Cardiac rehabilitation - phase 1 [facility] Start: 03-03-2023 Cardiac rehabilitation - phase 2 [facility] Start: 03-03-2023 End: 03-03-2023 Notification of physician [facility] Start: 03-03-2023 Oxygen therapy [facility] Start: 03-03-2023 Patient discharge [facility] Start: 03-03-2023 Systemic arterial pressure monitoring [facility] Start: 03-03-2023 End: 03-03-2023 Taking patient vital signs [facility] Start: 03-03-2023 Vascular disease risk assessment [facility] Start: 03-03-2023 Vital signs measurements [facility] Start: 03-03-2023 End: 03-03-2023 [facility] Start: 03-03-2023 Patient education [facility] Start: 03-03-2023 Provision of activity privileges [facility] Start: 03-03-2023 Pulse taking [facility] Start: 03-03-2023 Wound care [facility] Start: 03-03-2023 Catheterization of vein [facility] Start: 03-03-2023 Medication not administered [facility] Start: 03-03-2023 Notification of physician [facility] Start: 03-03-2023 End: 03-03-2023 [facility] Start: 03-02-2023 [facility] Start: 03-01-2023 Care planning and problem solving actions [facility] Start: 03-01-2023 Catheterization of vein [facility] Start: 03-01-2023 Medication not administered [facility] Start: 03-01-2023 Notification of physician [facility] Start: 03-01-2023 [facility] Start: 03-01-2023 Following clinical pathway protocol [facility] Start: 02-28-2023 Following clinical pathway protocol [facility] Start: 02-28-2023 Care planning and problem solving actions [facility] Start: 02-28-2023 Assessment of risk of venous thromboembolism [facility] Start: 02-28-2023 Insertion of catheter into peripheral vein [facility] Start: 02-28-2023 Measuring intake and output [facility] Start: 02-28-2023 Providing care according to standard [facility] Start: 02-28-2023 Referral to [place] line attendant [facility] Start: 02-28-2023 [facility] Start: 02-28-2023 Following clinical pathway protocol [facility] Start: 02-28-2023 Verification routine [facility] Start: 02-28-2023 Admission procedure [facility] Start: 02-28-2023 Hospital admission, emergency, from emergency room, medical nature [facility] Start: 08-13-2022 Patient discharge [facility] Start: 08-12-2022 [facility] Start: 08-11-2022 Following clinical pathway protocol [facility] Start: 08-11-2022 Assessment of risk of venous thromboembolism [facility] Start: 08-11-2022 Elevation of affected extremity [facility] Start: 08-11-2022 Fall prevention [facility] Start: 08-11-2022 Incentive spirometry [facility] Start: 08-11-2022 Inhalation therapy procedure [facility] Start: 08-11-2022 Insertion of catheter into peripheral vein [facility] Start: 08-11-2022 Introduction of urinary catheter [facility] Start: 08-11-2022 Measuring intake and output [facility] Start: 08-11-2022 Notification of physician [facility] Start: 08-11-2022 Oxygen therapy [facility] Start: 08-11-2022 Patient education [facility] Start: 08-11-2022 Providing care according to standard [facility] Start: 08-11-2022 Provision of activity privileges [facility] Start: 08-11-2022 Referral to service [facility] Start: 08-11-2022 [facility] Start: 08-11-2022 Viral nucleic acid assay [facility] Start: 08-11-2022 Admission procedure [facility] Start: 03-28-2017 End: 03-28-2017 Appointment Appointment [facility] Work Phone: Patient Education ED Diarrhea, U nknown Cause [facility] Work Phone: Patient referral [facility] Work Phone: Respiratory Panel (PCR) Respirat ory Panel (PCR) [facility] Respiratory pathogen s DNA and RNA 12b panel - Unspecified specimen by NICHOLE with probe detection [facility] SARS-CoV-2 (COVID-19 ) Ag [Presence] in Respiratory specimen by Rapid immunoassay [facility] Work Phone: Immunizations Immunization Date Immunization Notes Care Provider Ye sepulveda 12-05-2022 pneumococcal polysaccharide vaccine, [address] Neville Serrano Work Phone: [facility] 07-07-2020 Covid ([facility]) [facility] 06-09-2020 Covid ([facility]) [facility] Payers Date Payer Category Payer Self-pay [id number] 2015 Unknown [id number] 2000 Medicare [id number] 2000 Medicare [id number] [facility] [id number] Unknown [id number] 2.16.8 [id number] Unknown [id number] 2.16.8 [id number] Unknown [id number] 2.16.8 [id number] Unknown [id number] 2.16.8 [id number] Unknown [id number] 2.16.8 [id number] Unknown [id number] 2.16.8 [id number] Unknown [id number] 2.16.8 [id number] Unknown [id number] 2.16.8 [id number] Unknown [id number] 2.16.8 [id number] Unknown [id number] 2.16.8 [id number] Unknown [id number] 2.16.8 [id number] Social History Date Type Detail Facility Start: 12-02-2019 End: 08-13-2023 Tobacco smoking status NHIS Unknown if ever smoked [facility] Start: 1935 Sex Assigned At Female [facility] Start: 04-25-2024 End: 04-25-2024 Tobacco smoking status NHIS Never smoked tobacco (finding) [facility] Start: 07-13-2024 Sex Female (finding) [facility] Sex Female [facility] Medical Equipment Procedure Code Equipment Code Equipment Origin al Text Equipment Identifier Dates Drug-eluting coronary artery stent, [id number] lymer-coated [id number] FDA Start: 03-03-2023 Goals Date Patient Goal Desired Activity /State Functional Status Date Assessment Result Facility 04-26-2024 Functional status D[facility]et [facility] Work Phone: 03-08-2023 Functional status Ambulates;Bathroom Priv ilege [facility] Work Phone: 03-04-2023 Functional status Activity Ability Indepe [facility] Work Phone: 03-04-2023 Functional status Bathroom Privilege [facility] Work Phone: 08-13-2022 Functional status Activity Ability Indepe [facility] Work Phone: Mental Status Date Assessment Result Facility 04-26-2024 Cognitive function Voice/Name [facility] Work Phone: 03-08-2023 Cognitive function Voice/Name [facility] Work Phone: 03-07-2023 Cognitive function Level Of Cons ciousness Awake;Alert;Appropriate;Follow s Commands [facility] Work Phone: 03-04-2023 Cognitive function Voice/Name [facility] Work Phone: 02-28-2023 Cognitive function Voice/Name [facility] Work Phone: 08-13-2022 Cognitive function Voice/Name [facility] Work Phone: Clinical Notes 08-11-2022 to 02-22-2025 Note Date & Type Note Facility 02-22-2025 Progress note [facility] 02-22-2025 Progress note Note Date/Time February 22, 2025 4:39pm [facility] [address] [place] [address] OFFICE VISIT Date of Service: 02/22/25 MR#: [id number] Acct: [id number] Name: EUGENIA MOMIN Rep #: [id number] : 1935 Provider: DUSTIN Bhatt Age/Sex: 89/F Location: [facility] Status: Signed HPI HPI History of Present Illness Details: Eugenia Momin is an 89-year-old lady who presents for a cardiovascular follow up. She has had no previous cardiac history other than hypertension who presented to the hospital in August of 2022 with shortness of breath which has been going on for the preceding 2 to 3 days. She had also had some midsternal chest discomfort the evening of the admission. She was seen in the emergency room and EKG was done which demonstrated sinus rhythm with no acute changes. BTNP was noted to be elevated CT scan of the chest did not demonstrate any evidence of pulmonary embolism. She underwent an echocardiogram which demonstrated preserved ejection fraction with concentric left ventricular hypertrophy moderate mitral and aortic regurgitation. She was diuresed with intravenous Lasix and asked to follow-up. She presented to [facility] on 02/28/23 with a NSTEMI, she underwent a heart cath that demonstrated a high grade lesion of her mid LAD, she underwent stenting of this vessel. She was also noted to have severe mitral regurgitation, consideration for a mitral clip was to be discussedon an OP basis. Repeat echo demonstrated mild to moderate mitral valve insufficiency. From a cardiac standpoint, the patient is doing well. She denies any palpitations, chest pain, pressure or heaviness. She does acknowledge occasionalSOB with exertion-this is nothing new or worsening. She denies Orthopnea, and PND. She does acknowledge bruising. She does not have bleeding issues; no blood in urine, stool, or nosebleeds. She denies any decrease in energy level, myalgias, or claudication. She does not have edema, or sudden weight gain. She denies lightheadedness, dizziness, syncopal or near syncopal episodes, and headaches. 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: No Is patient in pain?: No Allergies amlodipine Allergy (Unknown, Verified 02/22/25 15:09) PT UNSURE OF REACTION lisinopril Adverse Reaction (Intermediate, Verified 02/22/25 15:09) Dry, hacking, constant cough atenolol Adverse Reaction (Verified 02/22/25 15:09) Abd cramps/diarrhea Medications ?Medication ?Instructions ?Recorded ?Confirmed ?Type rosuvastatin 40 mg tablet 40 mg PO DAILY cholesterol 0 06/24/23 02/22/25 History clopidogrel 75 mg tablet 75 mg PO DAILY anti platelet #90 02/12/24 02/22/25 Rx tabs spironolactone 50 mg tablet 50 mg PO DAILY 1 month #30 tabs 04/26/24 02/22/25 Rx levothyroxine 100 mcg tablet 100 mcg PO QDAY 08/12/24 02/22/25 History furosemide 40 mg tablet 40 mg PO QDAY diuretic 02/2202/22/25 History metoprolol tartrate 25 mg tablet 25 mg PO QDAY blood p ressure 02/22/25 02/22/25 History sacubitril 97 mg-valsartan 103 mg 1 tab PO ONCE 02/22/25 History tablet (Entresto) Ejection fraction %: 50 Have you fallen in the past year?: [facility] CHF (congestive heart failure) (HFpEF) heart failure with preserved ejection fraction Arteriosclerotic coronary artery disease Mitral regurgitation Non-smoker Myocardial infarct Hypertension Obesity Anxiety and depression CKD (chronic kidney disease), stage III Hypothyroidism HLD (hyperlipidemia) CHF (congestive heart failure) Surgical History Stented coronary artery (03/03/23) History of carpal tunnel release History of tonsillectomy and adenoidectomy Family History Mother Heart disease Hypertension CHF (congestive heart failure) Father Heart disease Hypertension CHF (congestive heart failure) CAD (coronary artery disease) Myocardial infarction Social History household members: none Smoking Status: Never smoker alcohol intake: never substance use type: does not use ROS Const Const: Negative for fatigue, weakness, headache(s) or frequent falls Eyes Eyes: Negative for blurry vision ENT ENT: Negative for headache(s), dizziness or Nosebleed/epistaxis Cardio Chest Pain: No Palpitations: No Edema: None Muscle aches with walking: None Resp Respiratory: Positive for SOB with activity (nothing new or worsening); Negative for SOB at rest or SOB orthopnea\\SOB lying down GI GI: Negative nausea, vomiting, heartburn, bright, red blood in stools or black,tarry stools : Negative for hematuria Skin Skin: Positive for unusual bruising Neuro Neuro: Negative for dizziness, lightheadedness, near syncope, syncope, frequent falls, headache(s), weakness or blurry vision Endo Endo: Negative for fatigue Cardiology Exam Const Appearance: cooperative, healthy appearing, comfortable, no acute distress and well developed Nutritional Appearance: obese Orientation: alert, awake and oriented x3 Head Head: normal to inspection Ears: hearing grossly normal bilaterally Nose: external nose normal Face and Sinus: face symmetric Eyes General: appearance normal, both eyes and all related structures Eyelids: eyelids normal Conjunctivae: conjunctivae normal Pupils: PERRL EOM: EOM intact bilaterally Neck Neck: normal visual inspection and trachea midline; Negative no JVD Carotids: Negative bruit Chest Chest inspection: normal inspection of the chest Auscultation: Bilateral: Clear to Auscultation Cardio Palpation: normal PMI Rate: regular rate Rhythm: regular rhythm Heart sounds: S1 normal and S2 normal; Negative rub, gallop or murmur GI GI: normal to inspection, soft and obese Neuro General: patient alert, patient awake, patient oriented x3 and CN's II-XI intactbilaterally Skin Skin: no rashes or lesions noted Extremities Pulses: Normal: Right Posterior Tibial Pulse, Left Posterior Tibial Pulse, RightRadial Pulse and Left Radial Pulse Lower Extremity Edema: None: Bilateral Psych Psychological: agitated Supplemental Info Supplemental Information Echocardiogram 07/30/2023: Normal LV size. Left ventricular systolic function is lower limits of normal. The left ventricular ejection fraction is 50 %. Stage 1 diastolic dysfunction. Mild-Moderate (1-2+) eccentric mitral valve insufficiency. Compared to previous study, the left ventricular systolic function is the same.. Echocardiogram 03/01/2023 Normal LV size. Left ventricular systolic function is lower limits of normal. The left ventricular ejection fraction is 50 %. There are regional wall motion abnormalities as specified. Pulmonary artery systolic pressure is 45 mmHg. Contrast injection was performed. Stress Test 09/25/22 Conclusion: Mildly abnormal pharmacologic myocardial perfusion stress test with mild anterior ischemia. Preserved ejection fraction. Cardiac cath with PCI 03/03/2023: Severe LAD disease moderately severe mitral valve disease and mild to moderate aortic valve disease. CORONARY ANGIOGRAPHY DOMINANCE: Right Dominant LEFT HEART ASSESSMENT Anterior Hypokinesis - Moderate LEFT MAIN: Angiographically normal LEFT ANTERIOR DESCENDING ARTERY: PROX LAD: Proximal long 80% stenotic lesion present. Mild diffuse disease in the distal LAD CIRCUMFLEX ARTERY: Mild luminal irregularities RIGHT CORONARY ARTERY: Mild luminal irregularities VALVE FINDINGS: Mitral Valve Insufficiency - Grade 3 PCI: Successful WILY to pLAD Chest CTA 08/11/2022 IMPRESSION: No demonstrated pulmonary embolism or arterial dissection. Bilateral pleural effusions associated with minimal dependent consolidation within the lower lobes. Bilateral groundglass opacities, a nonspecific finding, may be secondary to edema and/or an infectious process. Borderline enlarged lymph nodes, may be reactive. Atherosclerosis. Degenerative changes of the thoracic spine.? Labs: LDL Cholesterol, (0-130) 184 mg/dL H HDL Cholesterol, (40-) 42 mg/dL Cholesterol, (200) 256 mg/dL H Triglycerides, (-199) 148 mg/dL Diagnostics: Electrocardiogram Echocardiogram Stress Test Stress Test Nuclear Medicine Cardiac Catheterization Chest X-Ray Chest CTA Abdomen/Pelvis CT Venous Doppler Study Past Visits: Cardiology Visit 02/22/25 Assessment and Plan Assessment and Plan (1) Stented coronary artery: Status: Acute Comment: 2.5 X 12 mm [place] WILY to pLAD Plan: Patient has a history of coronary artery disease with stent placement to her pLAD. She appears stable at this time, and denies any recent symptoms or events. She will be asked to discontinue aspirin due to bruising, as her stent was placed over one year ago. She will continue Plavix 75 mg daily, and rosuvastatin 40 mg daily. She will continue with aggressive risk factor and lifestyle modifications, as well as monitoring for any concerning symptoms. (2) HTN (hypertension), benign: Status: Acute Plan: Patient has a history of hypertension. Her blood pressure is elevated in the office today at 164/83. She is agitated due to forgetting her purse, and insurance card at home. At this time, she will continue spironolactone 50mg daily, metoprolol tartrate 25mg daily, and furosemide 40mg daily. She was asked to monitor her blood pressures at home, and notify our office of any persistently elevated or low blood pressure readings. (3) Mitral regurgitation: Status: Chronic Plan: Patient has a history of mitral valve regurgitation. Her most recent echocardiogram on 07/30/2023 demonstrated ejection fraction of 50%, and mild to moderate eccentric mitral valve insufficiency. This is unchanged from her previous echocardiogram. She appears stable at this time, denies any recent symptoms or events. She will continue with her current medical therapy. We willcontinue to monitor this with history, exam, and echocardiograms as deemed appropriate. (4) HLD (hyperlipidemia): Status: Chronic Plan: Patient has a history of hyperlipemia. Her PCP monitors this. She will continue rosuvastatin 40mg daily, along with aggressive risk factor and lifestyle modifications. A copy of her most recent lipid panel would be greatly appreciated for continuity of care. Medications: Changed From metoprolol tartrate 25 mg PO BID 180 tabs 3RF blood pressure To metoprolol tartrate 25 mg PO QDAY ROBEL Bernstein From furosemide 40 mg PO BIDCM 30 days 90 tabs 3RF diuretic To furosemide [address] Tien Varma MD Discontinued aspirin Discontinued Reason: Order Completed 81 mg PO BREAKFAST 30 tabs 2RF heart health Plan Details Additional Comments: Patient will follow-up in 9 months, or sooner if needed. Thank you for allowing me to participate in the care of your patient. Please donot hesitate to call if any issues arise. This note was generated using a voice recognition system and there may be incorrect words, spelling, or punctuation that were not noted when reviewing theoffice note prior to saving. Portions of this documentation were copied and pasted from previous office visitnotes to provide cohesive continuity of the history. The note has been reviewed,edited, and updated, as necessary. 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) Coding Level of Care Code Off vis,est,level 4 Diagnoses Stented coronary artery Z95.5 HTN (hypertension), benign I10 Mitral regurgitation I34.0 HLD (hyperlipidemia) E78.5 Coding Level of Care Code Off vis,est,level 4 Diagnoses Stented coronary artery Z95.5 HTN (hypertension), benign I10 Mitral regurgitation I34.0 HLD (hyperlipidemia) E78.5 Clinical Quality Measures Falls Risk Screening/Assistive Devices Have you fallen in the past year?: Yes Cardiac Ejection fraction %: 50 02/24/25 0851 <Electronically signed by Rebecca CHAN> Date _ Rebecca CHAN Cosigner Signature: Date (if applicable) CC: ~ [facility] Work Phone: 1(697) 351-491112-23-2024 [facility] Medical Records Department [address] [place] [address] Discharge Summary 04/26/24 1404 MR#: [id number] Acct: [id number] Name: EUGENIA MOMIN Rep #: [id number] : 1935 88 From: Tien Varma MD PCP: Dr. Neville Serrano MD Status:ADM IN Location: [id number] Providers Date of Admission: 04/25/24 Date of Discharge: 04/26/24 Primary Care Physician: Dr. Neville Serrano MD Reason For Visit: CHF Diagnosis Discharge Diagnosis (1) CHF (congestive heart failure): Status: Acute Code(s): I50.9 - Heart failure, unspecified Plan Patient was admitted for worsening shortness of breath due to heart failure exacerbation. No chest pain pressure or tightness. 1. Acute on chronic diastolic CHF/essential HTN/CAD status post stent: BNP was elevated 228. Chest x-ray shows central pulmonary vascular congestion and diffuse pulmonary edema and small pleural effusion consistent with CHF exacerbation. Patient was admitted to PCU. Heart failure core measures including intake and output, fluid restriction less than 1500 mL, daily weight monitoring, kidney and electrolytes monitoring. Started on Lasix 40 mg IV twice daily. Shortness of breath much improved. ??? Continue with her aspirin and Plavix ??? Continue with her Crestor ??? Echo in July 2023 with an EF of 50% stage I diastolic dysfunction no plans to repeat echo 04/26: Patient discharged on furosemide 40 mg oral twice daily. Spironolactone dose increased to 50 mg daily. Advised [place] with Dr. Bal. 2. Hypothyroidism ??? Stable ??? Continue with Synthroid 3. Anxiety/depression ??? Stable ??? Continue with her home Paxil 4. CKD 3 A ??? Creatinine is at baseline. Creatinine improved from 1.39-1.17. Mild hypokalemia 3.2. His spironolactone dose increased as mentioned above ??? Advised follow-up BMP in 1 week with PCP. 5. Left knee upper medial tibial plateau pain. Knee x-ray was done and individually reviewed. Does not show acute fracture. Joint space within limit. Ultrasound preliminary report was no DVT. Patient walked with nursing staff in the hallway without risk of fall or acute issues. Most likely might be Pes anserinus tendinitis or burisits. Advised [id number] Motrin 400 mg 3 times daily as needed for severe pain. Follow-up orthopedic surgeon in 2 weeks. DVT: Lovenox Discharge medication reconciliation done. Discharge follow-up instructions completed. Discharge process discussed with the patient and all questions were answered to patient's satisfaction. Follow with PCP in 1 to 2 weeks Total time spent, exact 35 minutes on discharge meds reconciliation, examination, coordination of care with nurses and ancillary staff, review of imaging and blood test and discussion with the patient on follow-up instructions. Medications at Discharge Home Medications paroxetine HCl 40 mg tablet 40 mg PO DAILY mental health 08/11/22 aspirin 81 mg tablet,delayed release 81 mg PO BREAKFAST heart health #30 tabs 08/13/22 levothyroxine 88 mcg tablet 88 mcg PO DAILY thyroid 08/22/22 rosuvastatin 40 mg tablet 40 mg PO DAILY 06/24/23 losartan 25 mg tablet 25 mg PO DAILY #90 tabs 07/01/23 clopidogrel 75 mg tablet 75 mg PO DAILY #90 tabs 02/12/24 metoprolol tartrate 25 mg tablet 25 mg PO BID #180 tabs 03/29/24 furosemide 40 mg tablet 40 mg PO BIDCM diuretic 30 days #90 tabs 04/26/24 magnesium oxide 400 mg PO DAILY 1 month #30 tabs 04/26/24 spironolactone 50 mg tablet 50 mg PO DAILY 1 month #30 tabs 04/26/24 Physical Exam Narrative Patient admitted with heart failure exacerbation. Complained of right knee, medial tibial tuberosity pain for 1 week, started to spontaneously when she woke up. No history of injury or trauma or fall. Patient walked around the nursing station with the patient's nurse supervision and no complaint. Physical exam General: Alert, Oriented x3, Cooperative HEENT: Atraumatic, PERRLA, EOMI, Normocephalic Oral: No Gingival or Mucosal Lesions/ Ulcerations Neck: Supple, No JVD, Negative Carotid Bruits Chest wall/Lungs: Air entry diminished in bilateral lung bases. No crepitation/rhonchi Cardiovascular: Regular rate, Regular Rhythm, heart sounds low intensity. No M/G/R Abdomen: Bowel Sounds Present, Soft, Non Tender, Non-Distended : No dysuria. No renal angle tenderness. No suprapubic tenderness. Extremities: No edema, Capillary Refill Less than 3 Seconds Skin: No rashes, No breakdown Musculoskeletal: Mild tenderness over right upper medial knee/tibial tuberosity more on valgus and Cheryl's test.. ROM maintained. Neurological: Cranial nerves II-XII grossly intact, DTR 2+/4. No acute focal neurological deficit. Psych/Mental Status: Normal Affect, Appropriate. Weight / BMI Weight Weight: 219 lb 5.759 oz Body Mass Index (BMI) 38.8 ABG / Lab / Microb (more content not included)...[facility] 04-25-2024 Evaluation note* Diagnosis Onset Date Resolution Status Admit Date CKD (chronic kidney disease) , stage III chronic April 25, 2 024 6:31am Hypoxemia chronic April 25, 2024 6:31am Arteriosclerotic coronary artery disease inactive April 25, 2 024 6:31am CHF (congestive heart failure) inact glo April 25, 2024 6:31am [facility] Work Phone: 1(813) 616-222311-04-2023 Discharge summary Author John Pickett [facility] March 08, 2023 9:57am Note Date/Time March 08, 2023 9 :45am [facility] Medical Records Department [address] [place] [address] Discharge Summary 03/08/23 0943 MR#: [id number] Acct: [id number] Name: EUGENIA MOMIN Rep #:[id number] : 1935 87 From: John Pickett MD PCP: Dr. Neville Serrano MD Status:ADM I NO Location: [place] [address] Providers Date of Admission: 03/07/23 Date of Discharge: 03/08/23 Primary Care Physician: Dr. Neville Serrano MD Consultations 03/07/23 09:19 Consult: Cardiology Routine Consulting Provider: Connie Cortez Reason for Consult: Chest pain w/ recent NSTEMI/PCI, suspect overload/HFpEF component EMERGENT Consult: No MD Notified: Yes Date Notified: 03/07/23 Time Notified: 06:48 Method of Notification: ED Physician Initiated Reason For Visit: CHEST PAIN Diagnosis Discharge Diagnosis (1) CHF (congestive heart failure): Status: Chronic Code(s): I50.9 - Heart failure, unspecified Qualifiers: Heart failure type: diastolic Heart failure chronicity: acute Qualified Code(s): I50.31 - Acute diastolic (congestive) heart failure Plan Patient is an 87-year-old lady with recent hospitalization for acute non-STEMI for which she underwent PCI to a high-grade proximal to mid LAD lesion discharged home presented back to the emergency department with chest discomfortand shortness of breath imaging studies demonstrated bilateral vascular congestion in the lungs admitted to monitored bed for further management 1. Acute Congestive heart failure with preserved ejection fraction ? Echo from patient hospitalization performed on 03/03/2023 demonstrated EF of 50%. Patient admitted to monitored bed placed on fluid restriction, strict input and output, low-sodium diet, daily weight. Patient was also started on diuretics ? 03/08/2023 patient did improve with diuresis Case discussed with cardiology recommended discharge with Lasix as needed in addition to patient scheduled Lasix 2. Recent admission for acute non-STEMI ? Patient underwent left heart catheterization which demonstrated high-grade proximal to mid LAD lesion. She underwent PCI subsequently discharged home on guideline directed medical therapy 3. Mitral regurgitation: Plan is for patient to follow-up as outpatient with cardiology for considerationfor possible mitral valve clip 4. Hypothyroidism - Patient is on levothyroxine home dose continued 5. Hypertension - Blood pressure controlled, home medications continued with dose adjustment as needed 6. Dyslipidemia -Patient is on statin therapy, continued at home dose 7. Depression ? Patient on Paxil did continue 8. Class II obesity with BMI of 37.6 ? Complicating care, weight loss advised 9. Physical deconditioning - Requested for PT OT eval and nursing home social worker to assist with discharge planning 10. Chronic kidney disease stage III ? Kidney function at baseline which ranges from 1.6-2.04. Creatinine on admission 1.30 11. DVT prophylaxis ? SC Lovenox dose adjusted for kidney function Medications at Discharge Home Medications paroxetine HCl 40 mg tablet 40 mg PO DAILY mental health 08/11/22 aspirin 81 mg tablet,delayed release 81 mg PO BREAKFAST heart health #30 tabs 08/13/22 levothyroxine 88 mcg tablet 88 mcg PO DAILY thyroid 08/22/22 atorvastatin 40 mg tablet 40 mg PO QHS cholesterol #90 tabs 10/01/22 furosemide 40 mg tablet 40 mg PO DAILY diuretic #90 tabs 10/01/22 lisinopril 10 mg tablet 10 mg PO DAILY blood pressure #90 tabs 10/01/22 spironolactone 25 mg tablet 12.5 mg (1/2 x 25 mg) PO DAILY diuretic #45 tabs 10/01/22 clopidogrel 75 mg tablet 75 mg PO DAILY #90 tabs 03/04/23 metoprolol tartrate 25 mg tablet 25 mg PO BID 180 days #360 tabs 03/04/23 furosemide 40 mg tablet (Lasix) 40 mg PO DAILY PRN weight gain #30 tabs 03/08/23 Hospital Course Summary of Care Provided Minutes Spent on Discharge: 35 Physical Exam Narrative GENERAL: cooperative HEENT: Atraumatic; normocephalic EYES; Anicteric, Normal Conjunctiva NECK; supple, normal thyroid, RESPIRATORY: Diminished to auscultation CARDIOVASCULAR: Regular S1 S2, GI: soft, normoactive bowel sounds, : No Renal angle tenderness; EXTREMITIES: Bipedal edema, no clubbing, MUSCULOSKELETAL: no muscle wasting NEURO: Awake; no lateralizing signs. SKIN: No Rash PSYCH; Flat affect Weight / BMI Weight Weight: 95.1 kg Body Mass Index (BMI) 37.1 ABG / Lab / Microbiology Data 03/08/23 08:11 03/07/23 05:00 Laboratory: Laboratory Results - last 24 hr 03/07/23 11:25: Troponin I High Sens 707 H* 03/08/23 08:11: WBC 6.1, RBC 3.94 L, Hgb 12.0, Hct 36.3 L, MCV 92.1, MCH 30.5, MCHC 33.1, RDW Std Deviation 43.4, RDW Coeff of Danelle 12.8, Plt Count 244, MPV 11.6, Immature Gran % (Auto) 0.300, Neut % (Auto) 58.9, Lymph % (Auto) 27.0, Adams % (Auto) 8.9, Eos % (Auto) 3.9, Baso % (Auto) 1.0, Absolute Neuts (auto) 3.6, Absolute Lymphs (auto) 1.65, Nucleated RBC % 0 Radiography Diagnostic Testing: Radiology Impression Chest X-Ray 03/08/23 05:55 IMPRESSION: 1. Interval improvement of CHF. 2. No acute cardiopulmonary pathology. Electronically Signed: Mariano Dickson MD at 9:31 EDT , D/C Instructions Discharge Diet: 8 Cup Fluid Restriction and 2000 mg Sodium Diet Discharge Activity: Return to Normal Activity Call your doctor if you observe: Fever of 101 or Higher, Shortness of breath, Fainting spells and Chest pain Meaningful Use Info Meaningful Use Diagnoses (Choose all that apply): CHF CHF JL/ARB ordered at discharge?: Yes Documented LVEF (%): 50 Discharge Plan Admission Admit Date/Time: 03/07/23 06:22 Attending Provider: John Pickett Primary Care Provider: Neville Serrano [facility] [employer] Providers: Marina Rogers; Connie Cortez Discharge Orders/Prescriptions Prescriptions: New furosemide [Lasix] 40 mg tablet 40 mg PO DAILY PRN (Reason: weight gain) Qty: 30 0RF Rx Instructions: As needed for more than 5 pound weight gain in a week Continued levothyroxine 88 mcg tablet 88 mcg PO DAILY paroxetine HCl 40 mg tablet 40 mg PO DAILY aspirin 81 mg Tablet,Delayed Release (Dr/Ec) 81 mg PO BREAKFAST Qty: 30 2RF clopidogrel 75 mg Tablet 75 mg PO DAILY Qty: 90 0RF metoprolol tartrate 25 mg Tablet 25 mg PO BID 180 Days Qty: 360 0RF atorvastatin 40 mg tablet 40 mg PO QHS Qty: 90 3RF furosemide 40 mg tablet 40 mg PO DAILY Qty: 90 3RF Rx Instructions: Take an additional 40 mg dose at 5 PM for increased leg swelling or weight gain 5 pounds in 1 week. spironolactone 25 mg tablet 12.5 mg PO DAILY Qty: 45 3RF lisinopril 10 mg tablet 10 mg PO DAILY Qty: 90 3RF Referrals / Follow Up: Neville Serrano Chi, MD [Primary Care Provider] - Within 2 Weeks Disposition Disposition (needs filled in before D/C Order can be placed): Home, Self Care Charges/Coding Visit Charges Inpatient E&M: 16266 Disch Hosp >30min 03/08/23 0957 <Electronically signed by John Pickett MD> Cosigner Signature (if applicable): CC: Dr. John Pickett MD; Dr. Neville Serrano MD~ Signed [facility] Work Phone: 1(146) 875-792311-04-2023 Progress note Author John Pickett [facility] March 08, 2023 9:43am Note Date/Time March 08, 2023 7 :17am [facility] Medical Records Department [address] [place] [id number] Progress Note - Hospitalist 03/08/2316 MR#: [id number] Acct: [id number] Name: EUGENIA MOMIN Rep #:[id number] : 1935 87 From: John Pickett MD PCP: Dr. Neville Serrano MD Status:ADM I NO Location: [place] [address] Reason for Visit Reason for Visit: Diagnoses Acute diastolic (congestive) heart failure (03/07/23) Chest pain, unspecified (03/07/23) Other specified abnormal findings of blood chemistry (03/07/23) Presence of coronary angioplasty implant and graft (03/07/23) Subjective Subjective Patient seen admit to improvement in overall clinical condition Objective Data Objective Data Vital Signs: Vital Signs Temp Pulse Resp BP Pulse Ox O2 Del Method O2 Flow Rate 97.6 F L 66 16 116/60 94 Room Air 2 03/08/23 03:00 03/08/23 03:00 03/08/23 03:00 03/08/23 03:00 03/08/23 03:00 03/08/23 03:00 03/07/23 12:21 Oxygen Flow Rate (L/min) 2 Oxygen Delivery Method Room Air Weight: 95.1 kg Body Mass Index (BMI) 37.1 Intake & Output: Intake and Output for Last 24 Hours 03/06/23 03/07/23 03/08/23 23:59 23:59 23:59 Intake Total 1195 / 1245 50 / 50 Output Total 600 / 600 Balance 1195 / 1245 -550 / -550 Lab / Micro Data 03/08/23 08:11 03/07/23 05:00 Labs: Laboratory Results - last 24 hr 03/07/23 05:00: B-Natriuretic Peptide 969.7 H 03/07/23 06:45: Troponin I High Sens 763 H* 03/07/23 11:25: Troponin I High Sens 707 H* Rhythm Strip Rhythm Strip: Sinus Rhythm Ectopy: None Physical Exam Narrative GENERAL: cooperative HEENT: Atraumatic; normocephalic EYES; Anicteric, Normal Conjunctiva NECK; supple, normal thyroid, RESPIRATORY: Diminished to auscultation CARDIOVASCULAR: Regular S1 S2, GI: soft, normoactive bowel sounds, : No Renal angle tenderness; EXTREMITIES: Bipedal edema, no clubbing, MUSCULOSKELETAL: no muscle wasting NEURO: Awake; no lateralizing signs. SKIN: No Rash PSYCH; Flat affect Assessment & Plan Assessment/Plan (1) CHF (congestive heart failure): QUALIFIERS: Heart failure chronicity: acute Heart failure type: diastolic Qualified Code(s): I50.31 - Acute diastolic (congestive) heart failure PLAN: Plan Patient is an 87-year-old lady with recent hospitalization for acute non-STEMI for which she underwent PCI to a high-grade proximal to mid LAD lesion discharged home presented back to the emergency department with chest discomfortand shortness of breath imaging studies demonstrated bilateral vascular congestion in the lungs admitted to monitored bed for further management 1. Congestive heart failure with preserved ejection fraction ? Echo from patient hospitalization performed on 03/03/2023 demonstrated EF of 50%. Patient admitted to monitored bed placed on fluid restriction, strict input and output, low-sodium diet, daily weight. Patient was also started on diuretics 2. Recent admission for acute non-STEMI ? Patient underwent left heart catheterization which demonstrated high-grade proximal to mid LAD lesion. She underwent PCI subsequently discharged home on guideline directed medical therapy 3. Mitral regurgitation: Plan is for patient to follow-up as outpatient with cardiology for considerationfor possible mitral valve clip 4. Hypothyroidism - Patient is on levothyroxine home dose continued 5. Hypertension - Blood pressure controlled, home medications continued with dose adjustment as needed 6. Dyslipidemia -Patient is on statin therapy, continued at home dose 7. Depression ? Patient on Paxil did continue 8. Class II obesity with BMI of 37.6 ? Complicating care, weight loss advised 9. Physical deconditioning - Requested for PT OT eval and nursing home social worker to assist with discharge planning 10. Chronic kidney disease stage III ? Kidney function at baseline which ranges from 1.6-2.04. Creatinine on admission 1.30 11. DVT prophylaxis ? SC Lovenox dose adjusted for kidney function Time spent in the patient's overall evaluation,decision-making process, review of diagnostic data, adjustment of management, discussion with other providers, nursing nursing and ancillary staff involved in patient's care documentation, 50 Minutes Charges/Coding Visit Charges Inpatient E&M: 83413 Subs Hosp L2 03/08/23 0943 <Electronically signed by John Pickett MD> Cosigner Signature (if applicable): CC: ~ Signed [facility] Work Phone: 1(140) 553-563411-03-2023 Consult note Author Connie Cortez [facility] March 07, 2023 2:05pm Note Date/Time March 07, 2023 2 :01pm [facility] Medical Records Department [address] [place] [address] Consultation - Cardiology 03/07/23 1401 MR#: [id number] Acct: [id number] Name: EUGENIA MOMIN Rep #:[id number] : 1935 87 From: Connie reyes MD PCP: Dr. Neville Serrano MD Status:ADM I NO Location: [place] [address] Assessment & Plan Assessment/Plan (1) Elevated troponin I level: PLAN: Trending down from recent non-STEMI. (2) Chest pain: QUALIFIERS: Chest pain type: unspecified Qualified Code(s): R07.9- Chest pain, unspecified PLAN: Appears related to her shortness of breath which appears to be related to her CHF. It is improved. (3) Stented coronary artery: (4) CHF (congestive heart failure): QUALIFIERS: Heart failure type: diastolic Heart failure chronicity: acute Qualified Code(s): I50.31 - Acute diastolic (congestive) heart failure PLAN: Improved since admission. Reasonable to switch her to Lasix 40 mg p.o. twice daily. If patient is doing well tomorrow and if her creatinine is stable or coming down then she could be discharged home on 40 mg p.o. daily of Lasix with additional 40 mg dose as needed. HPI Consult Data Date of Consult: 03/07/23 HPI Narrative Reason for Consultation: Chest heaviness, shortness of breath HPI Narrative: EUGNEIA MOMIN, is a 87 F who presents with chest heaviness and shortness of breath. Patient had recent PCI to the LAD on March 03, 2023. Please refer tothe consult and progress note from that admission for full details. This time patient presented to the emergency room with symptoms as mentioned. Her troponin was in the 900s. Last admission it was over 20,000 and was trending down. Patient was admitted to the PCU and was given IV Lasix. Her troponin hascontinued to trend down and is now in the low 700s. Her symptoms have also improved significantly. Her creatinine has gone up slightly. Review of systems: All systems reviewed. All else is negative except that in HPI [facility] Medical History (Updated 03/07/23 @ 14:[address] Connie Cortez MD) (HFpEF) heart failure with preserved ejection fraction Anxiety and depression Arteriosclerotic coronary artery disease CHF (congestive heart failure) CKD (chronic kidney disease), stage III HLD (hyperlipidemia) Hypertension Hypothyroidism Myocardial infarct Non-smoker Obesity Home Medications paroxetine HCl 40 mg tablet 40 mg PO DAILY mental health 08/11/22 [History Last Taken 02/27/23] aspirin 81 mg tablet,delayed release 81 mg PO BREAKFAST heart health #30 tabs 08/13/22 [Rx Last Taken 02/28/23] levothyroxine 88 mcg tablet 88 mcg PO DAILY thyroid 08/22/22 [History Last Taken 02/27/23] atorvastatin 40 mg tablet 40 mg PO QHS cholesterol #90 tabs 10/01/22 [Rx Last Taken 02/27/23] furosemide 40 mg tablet 40 mg PO DAILY diuretic #90 tabs 10/01/22 [Rx Last Taken 02/27/23] lisinopril 10 mg tablet 10 mg PO DAILY blood pressure #90 tabs 10/01/22 [Rx Last Taken 02/28/23] spironolactone 25 mg tablet 12.5 mg (1/2 x 25 mg) PO DAILY diuretic #45 tabs 10/01/22 [Rx Last Taken 02/27/23] clopidogrel 75 mg tablet 75 mg PO DAILY #90 tabs 03/04/23 [Rx Last Taken Unknown] metoprolol tartrate 25 mg tablet 25 mg PO BID 180 days #360 tabs 03/04/23 [Rx Last Taken Unknown] Allergy/AdvReac Type Severity Reaction Status Date / Time No Known Allergies Allergy Verified 03/07/23 04:36 Family History Mother Heart disease Hypertension CHF (congestive heart failure) Father Heart disease Hypertension CHF (congestive heart failure) CAD (coronary artery disease) Myocardial infarction Surgical History History of carpal tunnel release History of tonsillectomy and adenoidectomy Stented coronary artery (03/03/23) Social History household members: none Smoking Status: Never smoker alcohol intake: never substance use type: does not use Physical Exam Const alert and oriented x3 HEENT normocephalic Eyes no scleral icterus Resp clear to auscultation bilaterally Extremity Extremity Narrative: 1+ bilateral pitting edema Psych mental status grossly normal Risk Stratification Risk Stratification Applicable: No Charges/Coding Visit Charges Inpatient E&M: 17444 Subs Hosp L2 Objective Data Vital Signs: Vital Signs Temp Pulse Resp BP Pulse Ox O2 Del Method O2 Flow Rate 97.7 F L 71 16 124/62 H 97 Nasal Cannula 2 03/07/23 11:50 03/07/23 12:00 03/07/23 11:50 03/07/23 12:00 03/07/23 12:21 03/07/23 12:21 03/07/23 12:21 Oxygen Flow Rate (L/min) 2 Oxygen Delivery Method Nasal Cannula Weight: 212 lb 1.355 oz Body Mass Index (BMI) 37.5 Intake & Output: Intake and Output for Last 24 Hours 03/05/23 03/06/23 03/07/23 23:59 23:59 23:59 Intake Total 595 / 595 Balance 595 / 595 Lab / Micro Data 03/07/23 05:00 03/07/23 05:00 Labs: Laboratory Results - last 24 hr 03/07/23 05:00: WBC 10.8, RBC 3.59 L, Hgb 10.7 L, Hct 33.0 L, MCV 91.9, MCH 29.8, MCHC 32.4, RDW Std Deviation 41.7, RDW Coeff of Danelle 12.5, Plt Count 208, MPV 11.5, Immature Gran % (Auto) 0.500, Neut % (Auto) 76.3 H, Lymph % (Auto) 14.4 L, Adams % (Auto) 6.2, Eos % (Auto) 2.1, Baso % (Auto) 0.5, Absolute Neuts (auto) 8.3 H, Absolute Lymphs (auto) 1.56, Nucleated RBC % 0, APTT 23.0 L, Sodium 137, Potassium 4.3, Chloride 111 H, Carbon Dioxide 20.0 L, Anion Gap 6, BUN 33 H, Creatinine 1.78 H, Estim Creat Clear Calc 18.42, Est GFR (MDRD) Af Amer 35 L, Est GFR (MDRD) Non-Af 29 L, BUN/Creatinine Ratio 18.5, Glucose 108 H,Calcium 8.4 L, Magnesium 2.0, Iron 48 L, TIBC 335, Iron Saturation 14.3 L, Ferritin 212, Troponin I High Sens 932 H*, B-Natriuretic Peptide 969.7 H 03/07/23 06:45: Troponin I High Sens 763 H* 03/07/23 11:25: Troponin I High Sens 707 H* Rhythm Strip Rhythm Strip: Sinus Rhythm Ectopy: None Cardiology Labs/Tests 03/07/23 05:00: WBC 10.8, RBC 3.59 L, Hgb 10.7 L, Hct 33.0 L, MCV 91.9, MCH 29.8, MCHC 32.4, Plt Count 208, MPV 11.5, Immature Gran % (Auto) 0.500, Neut % (Auto) 76.3 H, Lymph % (Auto) 14.4 L, Adams % (Auto) 6.2, Eos % (Auto) 2.1, Baso % (Auto) 0.5, Absolute Neuts (auto) 8.3 H, Nucleated RBC % 0, APTT 23.0 L, Sodium 137, Potassium 4.3, Chloride 111 H, Carbon Dioxide 20.0 L, Anion Gap 6, BUN 33 H, Creatinine 1.78 H, Est GFR (MDRD) Af Amer 35 L, Est GFR (MDRD) Non-Af 29 L, BUN/Creatinine Ratio 18.5, Glucose 108 H, Calcium 8.4 L, Magnesium 2.0, Iron 48 L, TIBC 335, Iron Saturation 14.3 L, Ferritin 212, B-Natriuretic Batkglt214.7 H Rhythm: EKG: ECHO: Stress Test: Cardiac Cath: PCI: CT Surgery: Holter monitor: EPS: PPM: CXR: Chest CT Scan: Radiography Diagnostic Testing: Radiology Impression Chest X-Ray 03/07/23 05:13 IMPRESSION: Cardiomegaly and interstitial edema. Electronically Signed: Luis A Thibodeaux DO at 5:30 EDT , 03/07/23 1405 <Electronically signed by Connie Cortez MD> Cosigner Signature (if applicable): CC: Dr. Marina Rogers MD; Dr. Connie Cortez MD; Dr. Neville Serrano MD~ Signed [facility] Work Phone: 1(608) 854-322011-03-2023 Progress [facility] March 07, 2023 10:49am Note Date/Time March 07, 2023 7 :22am [facility] Medical Records Department [address] [place] [address] Progress Note 03/07/23720 MR#: [id number] Acct: [id number] Name: EUGENIA MOMIN Rep #:[id number] : 1935 87 From: John Pickett MD PCP: Dr. Neville Serrano MD Status:ADM I NO Location: [place] [address] Progress Note Patient is an 87-year-old lady with recent hospitalization for acute non-STEMI for which she underwent PCI to a high-grade proximal to mid LAD lesion discharged home presented back to the emergency department with chest discomfortand shortness of breath imaging studies demonstrated bilateral vascular congestion in the lungs admitted to monitored bed for further management Physical Exam Narrative GENERAL: cooperative HEENT: Atraumatic; normocephalic EYES; Anicteric, Normal Conjunctiva NECK; supple, normal thyroid, RESPIRATORY: Diminished to auscultation CARDIOVASCULAR: Regular S1 S2, GI: soft, normoactive bowel sounds, : No Renal angle tenderness; EXTREMITIES: Bipedal edema, no clubbing, MUSCULOSKELETAL: no muscle wasting NEURO: Awake; no lateralizing signs. SKIN: No Rash PSYCH; Flat affect Assessment & Plan Assessment/Plan (1) CHF (congestive heart failure): QUALIFIERS: Heart failure type: diastolic Heart failure chronicity: acute Qualified Code(s): I50.31 - Acute diastolic (congestive) heart failure PLAN: Plan Patient is an 87-year-old lady with recent hospitalization for acute non-STEMI for which she underwent PCI to a high-grade proximal to mid LAD lesion discharged home presented back to the emergency department with chest discomfortand shortness of breath imaging studies demonstrated bilateral vascular congestion in the lungs admitted to monitored bed for further management 1. Congestive heart failure with preserved ejection fraction ? Echo from patient hospitalization performed on 03/03/2023 demonstrated EF of 50%. Patient admitted to monitored bed placed on fluid restriction, strict input and output, low-sodium diet, daily weight. Patient was also started on diuretics 2. Recent admission for acute non-STEMI ? Patient underwent left heart catheterization which demonstrated high-grade proximal to mid LAD lesion. She underwent PCI subsequently discharged home on guideline directed medical therapy 3. Mitral regurgitation: Plan is for patient to follow-up as outpatient with cardiology for considerationfor possible mitral valve clip 4. Hypothyroidism - Patient is on levothyroxine home dose continued 5. Hypertension - Blood pressure controlled, home medications continued with dose adjustment as needed 6. Dyslipidemia -Patient is on statin therapy, continued at home dose 7. Depression ? Patient on Paxil did continue 8. Class II obesity with BMI of 37.6 ? Complicating care, weight loss advised 9. Physical deconditioning - Requested for PT OT eval and nursing home social worker to assist with discharge planning 10. Chronic kidney disease stage III ? Kidney function at baseline which ranges from 1.6-2.04. Creatinine on admission 1.30 11. DVT prophylaxis ? SC Lovenox dose adjusted for kidney function Time spent in the patient's overall evaluation,decision-making process, review of diagnostic data, adjustment of management, discussion with other providers, nursing nursing and ancillary staff involved in patient's care documentation, 50 Minutes Visit Charges Inpatient E&M: 72276 [facility] 03/07/23 1049 <Electronically signed by John Pickett MD> John Pickett MD Cosigner Signature (if applicable): CC: ~ Signed [facility] Work Phone: 1(722) 865-266611-03-2023 Discharge summary Author Tomer Irvin [facility] March 07, 2023 8:57am Note Date/Time March 07, 2023 4 :48am [facility] Medical Records Department [address] [place] [address] Emergency Department Summary 03/07/23 MR#: [id number] Acct: [id number] Name: EUGENIA MOMIN Rep #:[id number] : 1935 87 From: Tomer Irvin MD PCP: Dr. Neville Serrano MD Status:ADM I NO Location: [place] [id number] HPI History of Present Illness Chief Complaint: Chest Pain Informant: patient and EMS Narrative Narrative: Patient brought by EMS for nonpleuritic chest heaviness that she has felt mostlyin the left side but as of lately has been throughout her entire chest, substernal. Heaviness. Associated with dyspnea and sweating. No palpitations, syncope, nausea, vomiting, focal neurologic symptoms, or headache. No back pain, arm pain, jaw pain, neck pain. She is a very poor historian, she is very frustrated with detailed clinical questions about her symptoms asked by myself and by nursing staff here. She states that 5 days ago, she had a stent here in the ER because she had a heart attack and she cannot tell me any details about the pain she was having then, or she does not want to. She states this past day, as she presents 4:30 AM, she was having some discomfort with light exertionand then she rested and she got better. Then later she went to bed and felt it again and it did not go away, progressing all night. [facility] Medical History (Updated 03/07/23 @ 06:[address] Tomer Irvin MD) Anxiety and depression Arteriosclerotic coronary artery disease CHF (congestive heart failure) CKD (chronic kidney disease), stage III HLD (hyperlipidemia) Hypertension Hypothyroidism Myocardial infarct Non-smoker Obesity Home Medications paroxetine HCl 40 mg tablet 40 mg PO DAILY mental health 08/11/22 [History Last Taken 02/27/23] aspirin 81 mg tablet,delayed release 81 mg PO BREAKFAST heart health #30 tabs 08/13/22 [Rx Last Taken 02/28/23] levothyroxine 88 mcg tablet 88 mcg PO DAILY thyroid 08/22/22 [History Last Taken 02/27/23] atorvastatin 40 mg tablet 40 mg PO QHS cholesterol #90 tabs 10/01/22 [Rx Last Taken 02/27/23] furosemide 40 mg tablet 40 mg PO DAILY diuretic #90 tabs 10/01/22 [Rx Last Taken 02/27/23] lisinopril 10 mg tablet 10 mg PO DAILY blood pressure #90 tabs 10/01/22 [Rx Last Taken 02/28/23] spironolactone 25 mg tablet 12.5 mg (1/2 x 25 mg) PO DAILY diuretic #45 tabs 10/01/22 [Rx Last Taken 02/27/23] clopidogrel 75 mg tablet 75 mg PO DAILY #90 tabs 03/04/23 [Rx Last Taken Unknown] metoprolol tartrate 25 mg tablet 25 mg PO BID 180 days #360 tabs 03/04/23 [Rx Last Taken Unknown] Allergy/AdvReac Type Severity Reaction Status Date / Time No Known Allergies Allergy Verified 03/07/23 04:36 Family History Mother Heart disease Hypertension CHF (congestive heart failure) Father Heart disease Hypertension CHF (congestive heart failure) CAD (coronary artery disease) Myocardial infarction Surgical History (Updated 03/07/23 @ 06:[address] Tomer Irvin MD) History of carpal tunnel release History of tonsillectomy and adenoidectomy Stented coronary artery (03/03/23) Social History household members: none Smoking Status: Never smoker alcohol intake: never substance use type: does not use ROS ROS ED Constitutional Constitutional ED: Reports sweats; Denies chills or fever(s) Eyes Eyes: Denies change in vision or diplopia ENT ENT ED: Denies rhinorrhea or sore throat Cardiovascular Cardiovascular: Reports as per HPI and chest pain; Denies palpitations or radiating jaw, neck or arm pain Respiratory/Chest Respiratory/Chest: Reports dyspnea; Denies cough Gastrointestinal Gastrointestinal: Denies abdominal pain, diarrhea, nausea or vomiting Genitourinary Genitourinary ED: Denies dysuria or hematuria Musculoskeletal Musculoskeletal: Denies back pain or neck pain Integumentary Denies abscess or rash Neurologic Neurologic: Denies headache(s), paresthesias or weakness Psychiatric Psychiatric: Denies anxiety or suicidal thoughts EXAM Physical Exam Const Vital Signs: 03/07/23 04:30 03/07/23 04:34 03/07/23 04:58 Temperature 98.0 F Temperature Source Temporal Pulse Rate 87 Respiratory Rate 16 Blood Pressure 136/66 H Blood Pressure Mean 89 Pulse Ox 86 89 Oxygen Delivery Method Nasal Cannula Nasal Cannula Oxygen Flow Rate (L/min) 3 3 03/07/23 06:10 Temperature 97.9 F Temperature Source Pulse Rate 76 Respiratory Rate 20 H Blood Pressure 119/58 L Blood Pressure Mean 78 Pulse Ox 96 Oxygen Delivery Method Oxygen Flow Rate (L/min) Positive well nourished and well developed General Appearance ED: well developed and NAD HEENT Reports moist mucous membranes normocephalic and atraumatic Eyes PERRL and EOMs intact bilaterally Neck full ROM and supple Resp normal respiratory effort and clear to auscultation bilaterally Cardio regular rate, regular rhythm and no murmurs GI non-tender and non-distended Auscultation: normoactive bowel sounds Palpation: soft Back/Spine no CVA tenderness General Back: other FROM Extremity normal to inspection General Extremety ED: Yes edema; Negative for pulses abnormal or tenderness General Extremity: edema bilateral lower extremity Details: mild; Negative for pulses abnormal Neuro oriented x3, CN's II-XII intact bilaterally and no sensory deficits noted Sensorium / Orientation: awake and alert Motor Exam: strength 5/5 throughout Psych Psych Narrative: frustrated w/ clinical questioning, borderline angry. Skin no rashes or lesions noted and no wounds Heart Score History: Highly Suspicious ECG: Significant ST-Depression Age: >/= 65 years Risk Factors: >/= 3 Risk Factors or History of CAD Troponin: >/=3 x Normal Limit Score: 10 MDM MDM MDM Narrative Medical decision making narrative: Prior to arrival here in the emergency department EMS gave the patient aspirin 324 mg and nitroglycerin. The patient states it did not help her pain at all. Therefore while working her up, we gave her IV fluids, morphine, Zofran. On reevaluation she is feeling much better. Her troponin is 932, she will need to be trended since her troponins were up to 21,000 but this was only 5 days ago. Discussed with Dr. Cortez, he recommends holding off on any therapeutic heparin/Lovenox, continuing the patient's clopidogrel, and cycling enzymes and will be happy to consult in the hospital. She has a high heart score because ofher recent stent. History & Record Review Additional record(s) reviewed:: Prior inpatient record (WILY to proximal LAD on 03/03) Lab Data Attestation: I reviewed the patient's lab results. Labs: Laboratory Results - last 24 hr 03/07/23 05:00 WBC 10.8 RBC 3.59 L Hgb 10.7 L Hct 33.0 L MCV 91.9 MCH 29.8 MCHC 32.4 RDW Std Deviation 41.7 RDW Coeff of Danelle 12.5 Plt Count 208 MPV 11.5 Immature Gran % (Auto) 0.500 Neut % (Auto) 76.3 H Lymph % (Auto) 14.4 L Adams % (Auto) 6.2 Eos % (Auto) 2.1 Baso % (Auto) 0.5 Absolute Neuts (auto) 8.3 H Absolute Lymphs (auto) 1.56 Nucleated RBC % 0 APTT 23.0 L Sodium 137 Potassium 4.3 Chloride 111 H Carbon Dioxide 20.0 L Anion Gap 6 BUN 33 H Creatinine 1.78 H Estim Creat Clear Calc 18.42 Est GFR (MDRD) Af Amer 35 L Est GFR (MDRD) Non-Af 29 L BUN/Creatinine Ratio 18.5 Glucose 108 H Calcium 8.4 L Troponin I High Sens 932 H* Radiography Chest X-Ray - ED: 1 View, Read by ED Physician, No Acute Disease and No Infiltrates Diagnostic Testing: Clinical Impression(s) from Imaging Studies Chest X-Ray 03/07/23 05:13 IMPRESSION: Cardiomegaly and interstitial edema. Electronically Signed: Luis A Thibodeaux DO at 5:30 EDT , Rhythm Strip Rhythm Strip: Sinus Rhythm Ectopy: None EKG Initial EKG: Attestation: I personally reviewed and interpreted this EKG as follows: Interpretation: Sinus Rhythm, No Acute Injury Pattern and S-T Depression (Inferior with borderline septal involvement, no definite reciprocal changes) Prior EKG tracings: available for review Prior: Unchanged Management Discussion w/another healthcare provider: Hospitalist and Copper Tapper (Cardiology) Discharge Plan Triage Chief Complaint: Chest Pain ED Provider: Tomer Irvin Dx/Rx/DC Orders Clinical Impression: Chest pain, Stented coronary artery, CKD (chronic kidney disease), stage III, Elevated troponin I level Prescriptions: No Action levothyroxine 88 mcg tablet 88 mcg PO DAILY paroxetine HCl 40 mg tablet 40 mg PO DAILY aspirin 81 mg Tablet,Delayed Release (Dr/Ec) 81 mg PO BREAKFAST Qty: 30 2RF clopidogrel 75 mg Tablet 75 mg PO DAILY Qty: 90 0RF metoprolol tartrate 25 mg Tablet 25 mg PO BID 180 Days Qty: 360 0RF atorvastatin 40 mg tablet 40 mg PO QHS Qty: 90 3RF furosemide 40 mg tablet 40 mg PO DAILY Qty: 90 3RF Rx Instructions: Take an additional 40 mg dose at 5 PM for increased leg swelling or weight gain 5 pounds in 1 week. spironolactone 25 mg tablet 12.5 mg PO DAILY Qty: 45 3RF lisinopril 10 mg tablet 10 mg PO DAILY Qty: 90 3RF Primary Care Provider: Neville Serrano Chi Referrals: Neville Serrano Chi, MD [Primary Care Provider] - Disposition Disposition: Acute Care Hospital [facility] What to do if you have Problems For any increased pain, shortness of breath, bleeding, nausea or vomiting, chestpain, or any unexpected problems, contact your Primary Care Provider. Call [facility] ([phone]) or report to the closest Emergency Room. Call 911 if necessary. 03/07/23 0857 <Electronically signed by Tomer Irvin MD> Cosigner Signature (if applicable): CC: Dr. Neville Serrano MD ~ Signed [facility] Work Phone: 1(124) 580-831411-03-2023 History and physical note Author Marina Rogers [facility] March 07, 2023 6:48am Note Date/Time March 07, 2023 6 :24am [facility] Medical Records Department [address] [place] [id number] H&P Exam - Hospitalist 03/07/23 0621 MR#: [id number] Acct: [id number] Name: EUGENIA MOMIN Rep #:[id number] : 1935 87 From: Marina Rogers MD PCP: Dr. Neville Serrano MD Status:REG E R Location: ED HPI - General General Date of Admission: 03/07/23 Date of Service: 03/07/23 Chief Complaint: Dyspnea, chest pain. HPI Narrative The patient is a 87 y/o F w/ PMHx: HFpEF, Anxiety and Depression, CKD stge III unclear subtype, HTN, HLD, Anxiety and Depression, Morbid obesity, Hypothyroidism, recent discharge 03/04/23 following admission for chest pain with NSTEMI with cardiac catheterization with high grade proximal to mid LAD lesion with PCI performed who now re-presents to the [facility] ED on 03/07/23 with nonpleuritic chest heaviness left- sided and also substernal with dyspnea and diaphoresis worse with any exertion and improved with rest initially however when she went to bed the evening prior to current presentation this discomfort recurred and that it did not go away and progressed through the evening prompting eventual ED evaluation. It is currently described in the chest tightness as a 5 out of 10 in severity, previously worse but improved with morphine. She notes initially 7-8 out of 10 in severity. She denies any markedorthopnea, increased weight gain, increased lower extremity swelling but does have chronic nonpitting edema to the lower extremities. Work-up in the ED included T97.9, heart rate 76, BP 119/58, respiratory rate 20, 96% on 2 L nasal cannula however initially desaturated down to 86% but improved with supplementation, CBC with WBC 10.8, hemoglobin 10.7, MCV 91.9, platelet 208 with left shift,PTT 23, BMP with chloride 111,, oxide 20, BUN/creatinine 33/1.78, glucose 108, calcium 8.4, troponin 932 without recent discharge troponin 21,716 of note, chest x-ray with cardiomegaly with interstitial edema, EKG with sinus rhythm with ST depressions inferiorly unchanged from previously. ED did alfredo case withcardiology who recommended admission and serial cardiac enzymes trended to be cautious. In the ED patient ministered normal saline, morphine, Zofran. [facility] Medical History (Updated 03/07/23 @ 06:[address] Marina Rogers MD) (HFpEF) heart failure with preserved ejection fraction Anxiety and depression Arteriosclerotic coronary artery disease CHF (congestive heart failure) CKD (chronic kidney disease), stage III HLD (hyperlipidemia) Hypertension Hypothyroidism Myocardial infarct Non-smoker Obesity Home Medications paroxetine HCl 40 mg tablet 40 mg PO DAILY mental health 08/11/22 [History Last Taken 02/27/23] aspirin 81 mg tablet,delayed release 81 mg PO BREAKFAST [facility] #30 tabs 08/13/22 [Rx Last Taken 02/28/23] levothyroxine 88 mcg tablet 88 mcg PO DAILY thyroid 08/22/22 [History Last Taken 02/27/23] atorvastatin 40 mg tablet 40 mg PO QHS cholesterol #90 tabs 10/01/22 [Rx Last Taken 02/27/23] furosemide 40 mg tablet 40 mg PO DAILY diuretic #90 tabs 10/01/22 [Rx Last Taken 02/27/23] lisinopril 10 mg tablet 10 mg PO DAILY blood pressure #90 tabs 10/01/22 [Rx Last Taken 02/28/23] spironolactone 25 mg tablet 12.5 mg (1/2 x 25 mg) PO DAILY diuretic #45 tabs 10/01/22 [Rx Last Taken 02/27/23] clopidogrel 75 mg tablet 75 mg PO DAILY #90 tabs 03/04/23 [Rx Last Taken Unknown] metoprolol tartrate 25 mg tablet 25 mg PO BID 180 days #360 tabs 03/04/23 [Rx Last Taken Unknown] Allergy/AdvReac Type Severity Reaction Status Date / Time No Known Allergies Allergy Verified 03/07/23 04:36 Family History Mother Heart disease Hypertension CHF (congestive heart failure) Father Heart disease Hypertension CHF (congestive heart failure) CAD (coronary artery disease) Myocardial infarction Surgical History History of carpal tunnel release History of tonsillectomy and adenoidectomy Stented coronary artery (03/03/23) Social History household members: none Smoking Status: Never smoker alcohol intake: never substance use type: does not use ROS ROS Narrative Admission Review of Systems: CONSTITUTIONAL: No weight loss, fever, chills, + weakness or fatigue. HEENT: + Chronic sinus drainage. Eyes: No visual loss, blurred vision, double vision or yellow sclerae. Ears, Nose, Throat: No hearing loss, sneezing, congestion, runny nose or sore throat. SKIN: No rash or itching, lesions, wounds. CARDIOVASCULAR: + chest pain, chest pressure or chest discomfort, chronic unchanged BL edema. No marked orthopnea, palpitations, syncopal events. RESPIRATORY: + shortness of breath, No cough or sputum, wheezing, hemoptysis. GASTROINTESTINAL: No anorexia, nausea, vomiting or diarrhea, abdominal pain, melena, BRBPR. GENITOURINARY: No dysuria, frequency, urgency or retention. NEUROLOGICAL: No headache, dizziness, syncope, paralysis, ataxia, numbness or tingling in the extremities, focal weakness, change in bowel or bladder control,seizure. MUSCULOSKELETAL: + muscle, back pain, joint pain or stiffness. HEMATOLOGIC: No anemia, bleeding or bruising. LYMPHATICS: No enlarged nodes. No history of splenectomy. PSYCHIATRIC: + history of depression or anxiety. ENDOCRINOLOGIC: No reports of sweating, cold or heat intolerance. No polyuria orpolydipsia. ALLERGIES: + rhinitis. Vital Signs Vital Signs Vital Signs: 03/07/23 04:30 03/07/23 04:34 03/07/23 04:58 Temperature 98.0 F Temperature Source Temporal Pulse Rate 87 Respiratory Rate 16 Blood Pressure 136/66 H Blood Pressure Mean 89 Pulse Ox 86 89 Oxygen Delivery Method Nasal Cannula Nasal Cannula Oxygen Flow Rate (L/min) 3 3 03/07/23 06:10 Temperature 97.9 F Temperature Source Pulse Rate 76 Respiratory Rate 20 H Blood Pressure 119/58 L Blood Pressure Mean 78 Pulse Ox 96 Oxygen Delivery Method Oxygen Flow Rate (L/min) Weight Weight: 221 lb 1.978 oz Body Mass Index (BMI) 39.2 Physical Exam Narrative Physical Examination: General: Awake, alert, oriented x 3 and cooperative, seated upright in the ED bed in no apparent distress, report still having chest discomfort, 5/10, improved from prior, anxious. Skin: Normal color, normal turgor, no icterus, no cyanosis. HEENT: AT/NC, EOMI, PERRLA, MMM, no carotid bruits, unable to discern notable JVD secondary to thickened neck. Lungs: Diminished, greater bases, mildly increased RR, no appreciated rales nor any rhonchi or wheezing. Heart: Regular rate and rhythm; no gallop, rub audible. Abdomen: Soft, obese, NTTP, ND, distant normal BS, no HSM. Extremities: No cyanosis, no clubbing, peripheral ankle mild pitting edema chronic stable. Neurological: Patient awake, alert, oriented as noted, cognitive function intact; pupils equally reactive to light and accommodation, cranial nerves II-XII grossly normal, moving all 4 extremities, no focal deficits, strength moderately to severely global decrease secondary to acute presentation. Psychiatric: Affect appears fatigued, anxious, no acute evidence of depressive feelings but does have underlying history. Results Lab / Micro Data 03/07/23 05:00 03/07/23 05:00 Labs: Laboratory Results - last 24 hr 03/07/23 05:00: WBC 10.8, RBC 3.59 L, Hgb 10.7 L, Hct 33.0 L, MCV 91.9, MCH 29.8, MCHC 32.4, RDW Std Deviation 41.7, RDW Coeff of Danelle 12.5, Plt Count 208, MPV 11.5, Immature Gran % (Auto) 0.500, Neut % (Auto) 76.3 H, Lymph % (Auto) 14.4 L, Adams % (Auto) 6.2, Eos % (Auto) 2.1, Baso % (Auto) 0.5, Absolute Neuts (auto) 8.3 H, Absolute Lymphs (auto) 1.56, Nucleated RBC % 0, APTT 23.0 L, Sodium 137, Potassium 4.3, Chloride 111 H, Carbon Dioxide 20.0 L, Anion Gap 6, BUN 33 H, Creatinine 1.78 H, Estim Creat Clear Calc 18.42, Est GFR (MDRD) Af Amer 35 L, Est GFR (MDRD) Non-Af 29 L, BUN/Creatinine Ratio 18.5, Glucose 108 H,Calcium 8.4 L, Troponin I High Sens 932 H* Rhythm Strip Rhythm Strip: Sinus Rhythm Ectopy: None Radiology Impression Chest X-Ray 03/07/23 05:13 IMPRESSION: Cardiomegaly and interstitial edema. Electronically Signed: Luis A Thibodeaux DO at 5:30 EDT , Assessment & Plan Assessment/Plan (1) Chest pain: PLAN: Plan The patient is a 87 y/o F w/ PMHx: HFpEF, Anxiety and Depression, CKD stge III unclear subtype, HTN, HLD, Anxiety and Depression, Morbid obesity, Hypothyroidism, recent discharge 03/04/23 following admission for chest pain with NSTEMI with cardiac catheterization with high grade proximal to mid LAD lession with PCI performed who now re-presents to the [facility] ED on 03/07/23 with nonpleuritic chest heaviness left- sided and also substernal with dyspnea and diaphoresis worse with any exertion and improved with rest initially however when she went to bed the evening prior to current presentation this discomfort recurred and that it did not go away and progressed through the evening prompting eventual ED evaluation. #1. Chest Pain w/ Elevated cardiac enzyme w/ recent NSTEMI s/p PCI admission asnoted below: EKG in ED with sinus rhythm with ST depressions inferiorly however this is unchanged from previous, CXR w/ with appearance of diffuse interstitial opacities/congestion with cardiomegaly, initial trop 932 decreased from previousadmission. Will admit to PCU, place on a monitored bed to assure no acute myocardial infarction with serial cardiac enzymes and EKGs. Magnesium level requested. Recent FLP thus will not repeat. ASA, NG, morphine. #2. Acute hypoxia with suspected volume overload/HFpEF exacerbation: 03/03/2023echocardiogram with normal LV size, LV systolic function lower limits of normal,EF 50%, regional wall motion abnormalities noted, PASP 45 mmHg. Chest x- ray at discharge with borderline cardiomegaly with no congestion however upon current presentation 03/07/2023 chest x-ray with mild diffuse interstitial opacities. Will obtain BNP. Will pulse dose with IV Lasix x1 now and this evening with then transition back to oral but may certainly continue pending response/cardiacdiscretion. We will continue to cycle cardiac enzymes, serial EKGs as needed, magnesium level requested, TSH level requested. Recent FLP thus will defer repeat. 03/08/23 repeat CXR in AM. #3. Acute Mild Renal Insufficiency on Chronic Kidney Disease Stage III, unclearsubtype: Admission BUN/Cr 33/1.78, baseline renal function primarily 1.0- 1.5, repeat BMP in AM. #4. Normocytic anemia, appears new onset: Admission Hgb 10.7, several checks since 02/03/23 11-10 range, 02/28/23 Hgb 13.3, will obtain guiac, iron panel, ferritin to be cautious and trend CBC. #5. CAD with recent NSTEMI: Recent presentation with NSTEMI as noted, status post PCI to the proximal to mid LAD, will continue aspirin, Plavix, metoprolol, lisinopril cautiously given mild acute renal insufficiency with hold if worsens. #6. Hypertension: Continue home regimen including metoprolol, spironolactone, lisinopril, Lasix, PRN hydralazine. If renal insufficiency worsens will hold spironolactone, lisinopril and Lasix temporarily as needed. As noted pulse dose IV lasix x 1. #7. Hyperlipidemia: We will continue patient on statin therapy. #8. Hypothyroidism: We will continue patient on levothyroxine regimen. #9. Morbid Obesity: Weight loss and lifestyle changes encouraged, nutrition consulted. #10. Anxiety and depression: We will continue patient home paroxetine regimen. #11. DVT prophylaxis: Lovenox, will use chemoprophylaxis dosing only unless troponin suddenly rises. #12. CODE status: Patient JAILENE is her 2 daughters and living will is currently in place. Full Code status. Charges/Coding Visit Charges Inpatient E&M: 44498 Init Hosp L3 03/07/23 0648 <Electronically signed by Marina Rogers MD> Cosigner Signature (if applicable): CC: Dr. Marina Rogers MD; Dr. Neville Serrano MD~ Signed [facility] Work Phone: 1(488) 729-457611-03-2023 History and physical note Author [facility] March 07, 2023 6:48am Note Date/Time March 07, 2023 6 :24am [facility] Medical Records Department [address] [place] [address] H&P Exam - Hospitalist 03/07/23 0621 MR#: [id number] Acct: [id number] Name: EUGENIA MOMIN Rep #:[id number] : 1935 87 From: Marina Rogers MD PCP: Dr. Neville Serrano MD Status:REG E R Location: ED HPI - General General Date of Admission: 03/07/23 Date of Service: 03/07/23 Chief Complaint: Dyspnea, chest pain. HPI Narrative The patient is a 87 y/o F w/ PMHx: HFpEF, Anxiety and Depression, CKD stge III unclear subtype, HTN, HLD, Anxiety and Depression, Morbid obesity, Hypothyroidism, recent discharge 03/04/23 following admission for chest pain with NSTEMI with cardiac catheterization with high grade proximal to mid LAD lesion with PCI performed who now re-presents to the [facility] ED on 03/07/23 with nonpleuritic chest heaviness left- sided and also substernal with dyspnea and diaphoresis worse with any exertion and improved with rest initially however when she went to bed the evening prior to current presentation this discomfort recurred and that it did not go away and progressed through the evening prompting eventual ED evaluation. It is currently described in the chest tightness as a 5 out of 10 in severity, previously worse but improved with morphine. She notes initially 7-8 out of 10 in severity. She denies any markedorthopnea, increased weight gain, increased lower extremity swelling but does have chronic nonpitting edema to the lower extremities. Work-up in the ED included T97.9, heart rate 76, BP 119/58, respiratory rate 20, 96% on 2 L nasal cannula however initially desaturated down to 86% but improved with supplementation, CBC with WBC 10.8, hemoglobin 10.7, MCV 91.9, platelet 208 with left shift,PTT 23, BMP with chloride 111,, oxide 20, BUN/creatinine 33/1.78, glucose 108, calcium 8.4, troponin 932 without recent discharge troponin 21,716 of note, chest x-ray with cardiomegaly with interstitial edema, EKG with sinus rhythm with ST depressions inferiorly unchanged from previously. ED did alfredo case withcardiology who recommended admission and serial cardiac enzymes trended to be cautious. In the ED patient ministered normal saline, morphine, Zofran. [facility] Medical History (Updated 03/07/23 @ 06:[address] Marina Rogers MD) (HFpEF) heart failure with preserved ejection fraction Anxiety and depression Arteriosclerotic coronary artery disease CHF (congestive heart failure) CKD (chronic kidney disease), stage III HLD (hyperlipidemia) Hypertension Hypothyroidism Myocardial infarct Non-smoker Obesity Home Medications paroxetine HCl 40 mg tablet 40 mg PO DAILY mental health 08/11/22 [History Last Taken 02/27/23] aspirin 81 mg tablet,delayed release 81 mg PO BREAKFAST heart [facility] #30 tabs 08/13/22 [Rx Last Taken 02/28/23] levothyroxine 88 mcg tablet 88 mcg PO DAILY thyroid 08/22/22 [History Last Taken 02/27/23] atorvastatin 40 mg tablet 40 mg PO QHS cholesterol #90 tabs 10/01/22 [Rx Last Taken 02/27/23] furosemide 40 mg tablet 40 mg PO DAILY diuretic #90 tabs 10/01/22 [Rx Last Taken 02/27/23] lisinopril 10 mg tablet 10 mg PO DAILY blood pressure #90 tabs 10/01/22 [Rx Last Taken 02/28/23] spironolactone 25 mg tablet 12.5 mg (1/2 x 25 mg) PO DAILY diuretic #45 tabs 10/01/22 [Rx Last Taken 02/27/23] clopidogrel 75 mg tablet 75 mg PO DAILY #90 tabs 03/04/23 [Rx Last Taken Unknown] metoprolol tartrate 25 mg tablet 25 mg PO BID 180 days #360 tabs 03/04/23 [Rx Last Taken Unknown] Allergy/AdvReac Type Severity Reaction Status Date / Time No Known Allergies Allergy Verified 03/07/23 04:36 Family History Mother Heart disease Hypertension CHF (congestive heart failure) Father Heart disease Hypertension CHF (congestive heart failure) CAD (coronary artery disease) Myocardial infarction Surgical History History of carpal tunnel release History of tonsillectomy and adenoidectomy Stented coronary artery (03/03/23) Social History household members: none Smoking Status: Never smoker alcohol intake: never substance use type: does not use ROS ROS Narrative Admission Review of Systems: CONSTITUTIONAL: No weight loss, fever, chills, + weakness or fatigue. HEENT: + Chronic sinus drainage. Eyes: No visual loss, blurred vision, double vision or yellow sclerae. Ears, Nose, Throat: No hearing loss, sneezing, congestion, runny nose or sore throat. SKIN: No rash or itching, lesions, wounds. CARDIOVASCULAR: + chest pain, chest pressure or chest discomfort, chronic unchanged BL edema. No marked orthopnea, palpitations, syncopal events. RESPIRATORY: + shortness of breath, No cough or sputum, wheezing, hemoptysis. GASTROINTESTINAL: No anorexia, nausea, vomiting or diarrhea, abdominal pain, melena, BRBPR. GENITOURINARY: No dysuria, frequency, urgency or retention. NEUROLOGICAL: No headache, dizziness, syncope, paralysis, ataxia, numbness or tingling in the extremities, focal weakness, change in bowel or bladder control,seizure. MUSCULOSKELETAL: + muscle, back pain, joint pain or stiffness. HEMATOLOGIC: No anemia, bleeding or bruising. LYMPHATICS: No enlarged nodes. No history of splenectomy. PSYCHIATRIC: + history of depression or anxiety. ENDOCRINOLOGIC: No reports of sweating, cold or heat intolerance. No polyuria orpolydipsia. ALLERGIES: + rhinitis. Vital Signs Vital Signs Vital Signs: 03/07/23 04:30 03/07/23 04:34 03/07/23 04:58 Temperature 98.0 F Temperature Source Temporal Pulse Rate 87 Respiratory Rate 16 Blood Pressure 136/66 H Blood Pressure Mean 89 Pulse Ox 86 89 Oxygen Delivery Method Nasal Cannula Nasal Cannula Oxygen Flow Rate (L/min) 3 3 03/07/23 06:10 Temperature 97.9 F Temperature Source Pulse Rate 76 Respiratory Rate 20 H Blood Pressure 119/58 L Blood Pressure Mean 78 Pulse Ox 96 Oxygen Delivery Method Oxygen Flow Rate (L/min) Weight Weight: 221 lb 1.978 oz Body Mass Index (BMI) 39.2 Physical Exam Narrative Physical Examination: General: Awake, alert, oriented x 3 and cooperative, seated upright in the ED bed in no apparent distress, report still having chest discomfort, 5/10, improved from prior, anxious. Skin: Normal color, normal turgor, no icterus, no cyanosis. HEENT: AT/NC, EOMI, PERRLA, MMM, no carotid bruits, unable to discern notable JVD secondary to thickened neck. Lungs: Diminished, greater bases, mildly increased RR, no appreciated rales nor any rhonchi or wheezing. Heart: Regular rate and rhythm; no gallop, rub audible. Abdomen: Soft, obese, NTTP, ND, distant normal BS, no HSM. Extremities: No cyanosis, no clubbing, peripheral ankle mild pitting edema chronic stable. Neurological: Patient awake, alert, oriented as noted, cognitive function intact; pupils equally reactive to light and accommodation, cranial nerves II-XII grossly normal, moving all 4 extremities, no focal deficits, strength moderately to severely global decrease secondary to acute presentation. Psychiatric: Affect appears fatigued, anxious, no acute evidence of depressive feelings but does have underlying history. Results Lab / Micro Data 03/07/23 05:00 03/07/23 05:00 Labs: Laboratory Results - last 24 hr 03/07/23 05:00: WBC 10.8, RBC 3.59 L, Hgb 10.7 L, Hct 33.0 L, MCV 91.9, MCH 29.8, MCHC 32.4, RDW Std Deviation 41.7, RDW Coeff of Danelle 12.5, Plt Count 208, MPV 11.5, Immature Gran % (Auto) 0.500, Neut % (Auto) 76.3 H, Lymph % (Auto) 14.4 L, Adams % (Auto) 6.2, Eos % (Auto) 2.1, Baso % (Auto) 0.5, Absolute Neuts (auto) 8.3 H, Absolute Lymphs (auto) 1.56, Nucleated RBC % 0, APTT 23.0 L, Sodium 137, Potassium 4.3, Chloride 111 H, Carbon Dioxide 20.0 L, Anion Gap 6, BUN 33 H, Creatinine 1.78 H, Estim Creat Clear Calc 18.42, Est GFR (MDRD) Af Amer 35 L, Est GFR (MDRD) Non-Af 29 L, BUN/Creatinine Ratio 18.5, Glucose 108 H,Calcium 8.4 L, Troponin I High Sens 932 H* Rhythm Strip Rhythm Strip: Sinus Rhythm Ectopy: None Radiology Impression Chest X-Ray 03/07/23 05:13 IMPRESSION: Cardiomegaly and interstitial edema. Electronically Signed: Luis A Thibodeaux DO at 5:30 EDT , Assessment & Plan Assessment/Plan (1) Chest pain: PLAN: Plan The patient is a 87 y/o F w/ PMHx: HFpEF, Anxiety and Depression, CKD stge III unclear subtype, HTN, HLD, Anxiety and Depression, Morbid obesity, Hypothyroidism, recent discharge 03/04/23 following admission for chest pain with NSTEMI with cardiac catheterization with high grade proximal to mid LAD lession with PCI performed who now re-presents to the [facility] ED on 03/07/23 with nonpleuritic chest heaviness left- sided and also substernal with dyspnea and diaphoresis worse with any exertion and improved with rest initially however when she went to bed the evening prior to current presentation this discomfort recurred and that it did not go away and progressed through the evening prompting eventual ED evaluation. #1. Chest Pain w/ Elevated cardiac enzyme w/ recent NSTEMI s/p PCI admission asnoted below: EKG in ED with sinus rhythm with ST depressions inferiorly however this is unchanged from previous, CXR w/ with appearance of diffuse interstitial opacities/congestion with cardiomegaly, initial trop 932 decreased from previousadmission. Will admit to PCU, place on a monitored bed to assure no acute myocardial infarction with serial cardiac enzymes and EKGs. Magnesium level requested. Recent FLP thus will not repeat. ASA, NG, morphine. #2. Acute hypoxia with suspected volume overload/HFpEF exacerbation: 03/03/2023echocardiogram with normal LV size, LV systolic function lower limits of normal,EF 50%, regional wall motion abnormalities noted, PASP 45 mmHg. Chest x- ray at discharge with borderline cardiomegaly with no congestion however upon current presentation 03/07/2023 chest x-ray with mild diffuse interstitial opacities. Will obtain BNP. Will pulse dose with IV Lasix x1 now and this evening with then transition back to oral but may certainly continue pending response/cardiacdiscretion. We will continue to cycle cardiac enzymes, serial EKGs as needed, magnesium level requested, TSH level requested. Recent FLP thus will defer repeat. 03/08/23 repeat CXR in AM. #3. Acute Mild Renal Insufficiency on Chronic Kidney Disease Stage III, unclearsubtype: Admission BUN/Cr 33/1.78, baseline renal function primarily 1.0- 1.5, repeat BMP in AM. #4. Normocytic anemia, appears new onset: Admission Hgb 10.7, several checks since 02/03/23 11-10 range, 02/28/23 Hgb 13.3, will obtain guiac, iron panel, ferritin to be cautious and trend CBC. #5. CAD with recent NSTEMI: Recent presentation with NSTEMI as noted, status post PCI to the proximal to mid LAD, will continue aspirin, Plavix, metoprolol, lisinopril cautiously given mild acute renal insufficiency with hold if worsens. #6. Hypertension: Continue home regimen including metoprolol, spironolactone, lisinopril, Lasix, PRN hydralazine. If renal insufficiency worsens will hold spironolactone, lisinopril and Lasix temporarily as needed. As noted pulse dose IV lasix x 1. #7. Hyperlipidemia: We will continue patient on statin therapy. #8. Hypothyroidism: We will continue patient on levothyroxine regimen. #9. Morbid Obesity: Weight loss and lifestyle changes encouraged, nutrition consulted. #10. Anxiety and depression: We will continue patient home paroxetine regimen. #11. DVT prophylaxis: Lovenox, will use chemoprophylaxis dosing only unless troponin suddenly rises. #12. CODE status: Patient JAILENE is her 2 daughters and living will is currently in place. Full Code status. Charges/Coding Visit Charges Inpatient E&M: 18910 Init Hosp L3 03/07/23 0648 <Electronically signed by Marina Rogers MD> Cosigner Signature (if applicable): CC: Dr. Marina Rogers MD; Dr. Neville Serrano MD~ Signed [facility] Work Phone: 1(685) 856-176910-31-2023 Discharge summary Author John Pickett [facility] March 04, 2023 12:50pm Note Date/Time March 04, 2023 1 1:28am [facility] Medical Records Department [address] [place] [address] Discharge Summary 03/04/23 1128 MR#: [id number] Acct: [id number] Name: EUGENIA MOMIN Rep #:[id number] : 1935 87 From: John Pickett MD PCP: Dr. Neville Serrano MD Status:ADM I N Location: [place] [address] Providers Date of Admission: 02/28/23 Date of Discharge: 03/04/23 Primary Care Physician: Dr. Neville Serrano MD Consultations 02/28/23 15:19 Consult: Cardiology Routine Consulting Provider: Georges Mcdonald Reason for Consult: NSTEMI EMERGENT Consult: No MD Notified: Yes Date Notified: 02/28/23 Time Notified: 12:50 Method of Notification: ED Physician Initiated Reason For Visit: NSTEMI Diagnosis Discharge Diagnosis (1) Non-ST elevated myocardial infarction: Status: Acute Code(s): I21.4 - Non-ST elevation (NSTEMI) myocardial infarction (2) Mitral regurgitation: Status: Acute Code(s): I34.0 - Nonrheumatic mitral (valve) insufficiency (3) HTN (hypertension), benign: Status: Acute Code(s): I10 - Essential (primary) hypertension Medications at Discharge Home Medications paroxetine HCl 40 mg tablet 40 mg PO DAILY . 08/11/22 aspirin 81 mg tablet,delayed release 81 mg PO BREAKFAST #30 tabs 08/13/22 levothyroxine 88 mcg tablet 88 mcg PO DAILY 08/22/22 atorvastatin 40 mg tablet 40 mg PO QHS #90 tabs 10/01/22 furosemide 40 mg tablet 40 mg PO DAILY #90 tabs 10/01/22 lisinopril 10 mg tablet 10 mg PO DAILY #90 tabs 10/01/22 spironolactone 25 mg tablet 12.5 mg (1/2 x 25 mg) PO DAILY #45 tabs 10/01/22 clopidogrel 75 mg tablet 75 mg PO DAILY #90 tabs 03/04/23 metoprolol tartrate 25 mg tablet 25 mg PO BID 180 days #360 tabs 03/04/23 Hospital Course Summary of Care Provided Minutes Spent on Discharge: 35 Hospital Course: Patient is an 87-year-old lady who presented with chest pain diagnosed with acute non-STEMI 1. Acute non-STEMI ? Patient underwent left heart catheterization which demonstrated high-grade proximal to mid LAD lesion. She underwent PCI subsequently discharged home on guideline directed medical therapy 2. Mitral regurgitation: Plan is for patient to follow-up as outpatient with cardiology for considerationfor possible mitral valve clip 3. Hypothyroidism - Patient is on levothyroxine home dose continued 4. Hypertension - Blood pressure controlled, home medications continued with dose adjustment as needed 5. Dyslipidemia -Patient is on statin therapy, continued at home dose 6. Depression ? Patient on Paxil did continue Physical Exam Narrative GENERAL: cooperative HEENT: Atraumatic; normocephalic EYES; Anicteric, Normal Conjunctiva NECK; supple, normal thyroid, RESPIRATORY: Diminished to auscultation CARDIOVASCULAR: Regular S1 S2, GI: soft, normoactive bowel sounds, : No Renal angle tenderness; EXTREMITIES: No edema, no clubbing, MUSCULOSKELETAL: no muscle wasting NEURO: Awake; no lateralizing signs. SKIN: No Rash PSYCH; Flat affect Weight / BMI Weight Weight: 93.7 kg Body Mass Index (BMI) 36.6 ABG / Lab / Microbiology Data 03/04/23 06:58 03/04/23 06:58 Laboratory: Laboratory Results - last 24 hr 03/04/23 06:58: WBC 6.8, RBC 3.57 L, Hgb 10.6 L, Hct 33.9 L, MCV 95.0, MCH 29.7,MCHC 31.3 L, RDW Std Deviation 44.9 H, RDW Coeff of Danelle 13.0, Plt Count 181, MPV11.4, Immature Gran % (Auto) 0.300, Neut % (Auto) 58.0, Lymph % (Auto) 28.5, Adams % (Auto) 8.8, Eos % (Auto) 3.7, Baso % (Auto) 0.7, Absolute Neuts (auto) 4.0, Absolute Lymphs (auto) 1.94, Nucleated RBC % 0, Sodium 139, Potassium 4.3, Chloride 113 H, Carbon Dioxide 24.0, Anion Gap 2 L, BUN 33 H, Creatinine 1.30 H,Estim Creat Clear Calc 25.22, Est GFR (MDRD) Af Amer 50 L, Est GFR (MDRD) Non-Af41 L, BUN/Creatinine Ratio 25.4 H, Glucose 112 H, Calcium 8.1 L, Total Bilirubin0.20, AST 27, ALT 20, Alkaline Phosphatase 74, Total Protein 6.1 L, Albumin 2.6 L, Globulin 3.5, Albumin/Globulin Ratio 0.7 L Radiography Diagnostic Testing: Radiology Impression Echocardiogram 03/01/23 13:09 Interpretation Summary Normal LV size. Left ventricular systolic function is lower limits of normal. The left ventricular ejection fraction is 50 %. There are regional wall motion abnormalities as specified. Pulmonary artery systolic pressure is 45 mmHg. Contrast injection was performed. Ordering Physician: Georges Mcdonald Referring Physician: Neville Serrano Chi Performed By: Guanakito Suarez RCS D/C Instructions Discharge Diet: Low fat / Low cholesterol Discharge Activity: Return to Normal Activity Call your doctor if you observe: Fever of 101 or Higher, Shortness of breath, Fainting spells and Chest pain Meaningful Use Info Meaningful Use Diagnoses (Choose all that apply): AMI AMI/Post PCI/Angioplasty Aspirin given w/in 24hrs of arrival?: Yes ASA at discharge?: Yes Antiplatelet Therapy at Discharge:: Yes Statins at discharge?: Yes Jl/ARB at discharge?: Yes Beta Jonas at discharge?: Yes Done w/ Acute [place] measure.: Yes Documented LVEF (%): 50 Discharge Plan Admission Admit Date/Time: 02/28/23 12:46 Attending Provider: John Pickett Primary Care Provider: Neville Serrano Chi Consulting Providers: Georges Mcdonald; Antwon Peguero Discharge Orders/Prescriptions Prescriptions: New clopidogrel 75 mg Tablet 75 mg PO DAILY Qty: 90 0RF metoprolol tartrate 25 mg Tablet 25 mg PO BID 180 Days Qty: 360 0RF Continued levothyroxine 88 mcg tablet 88 mcg PO DAILY paroxetine HCl 40 mg tablet 40 mg PO DAILY aspirin 81 mg Tablet,Delayed Release (Dr/Ec) 81 mg PO BREAKFAST Qty: 30 2RF atorvastatin 40 mg tablet 40 mg PO QHS Qty: 90 3RF furosemide 40 mg tablet 40 mg PO DAILY Qty: 90 3RF Rx Instructions: Take an additional 40 mg dose at 5 PM for increased leg swelling or weight gain 5 pounds in 1 week. spironolactone 25 mg tablet 12.5 mg PO DAILY Qty: 45 3RF lisinopril 10 mg tablet 10 mg PO DAILY Qty: 90 3RF Discontinued atenolol [Tenormin] 50 mg tablet 50 mg PO DAILY Qty: 90 3RF Referrals / Follow Up: Jeovanny Bal MD [Med Staff - Active Staff] - Within 1 Month Neville Serrano Chi, MD [Primary Care Provider] - Within 1 Week Disposition Disposition (needs filled in before D/C Order can be placed): Home, Self Care Charges/Coding Visit Charges Inpatient E&M: 60379 Disch Hosp >30min 03/04/23 1250 <Electronically signed by John Pickett MD> Cosigner Signature (if applicable): CC: Dr. John Pickett MD; Dr. Neville Serrano MD~ Signed [facility] Work Phone: 1(126) 671-467710-31-2023 Progress note Author Jeovanny Bal [facility] March 04, 2023 8:56am Note Date/Time March 04, 2023 8 :56am [facility] Medical Records Department [address] [place] [address] Progress Note - Cardiology 03/04/23 0854 MR#: [id number] Acct: [id number] Name: EUGENIA MOMIN Rep #:[id number] : 1935 87 From: Jeovanny Bal MD PCP: Dr. Neville Serrano MD Status:ADM I N Location: [place] [address] Subjective Subjective Patient seen and evaluated. Appears to be doing well. Stable at this time. Objective Data Vital Signs: Vital Signs Temp Pulse Resp BP Pulse Ox O2 Del Method O2 Flow Rate 98.4 F 72 15 122/66 H 96 Room Air 2 03/04/23 05:06 03/04/23 05:06 03/04/23 05:06 03/04/23 05:15 03/04/23 05:06 03/04/23 08:27 03/01/23 06:00 Oxygen Flow Rate (L/min) 2 Oxygen Delivery Method Room Air Weight: 206 lb 9.17 oz Body Mass Index (BMI) 36.6 Intake & Output: Intake and Output for Last 24 Hours 03/02/23 03/03/23 03/04/23 23:59 23:59 23:59 Intake Total 2519.92 / 2519.92 595.62 / 715.62 1170 / 1170 Output Total Balance 2519.92 / 2519.92 594.62 / 714.62 1170 / 1170 Lab / Micro Data 03/04/23 06:58 03/04/23 06:58 Labs: Laboratory Results - last 24 hr 03/04/23 06:58: WBC 6.8, RBC 3.57 L, Hgb 10.6 L, Hct 33.9 L, MCV 95.0, MCH 29.7,MCHC 31.3 L, RDW Std Deviation 44.9 H, RDW Coeff of Danelle 13.0, Plt Count 181, MPV11.4, Immature Gran % (Auto) 0.300, Neut % (Auto) 58.0, Lymph % (Auto) 28.5, Adams % (Auto) 8.8, Eos % (Auto) 3.7, Baso % (Auto) 0.7, Absolute Neuts (auto) 4.0, Absolute Lymphs (auto) 1.94, Nucleated RBC % 0, Sodium 139, Potassium 4.3, Chloride 113 H, Carbon Dioxide 24.0, Anion Gap 2 L, BUN 33 H, Creatinine 1.30 H,Estim Creat Clear Calc 25.22, Est GFR (MDRD) Af Amer 50 L, Est GFR (MDRD) Non-Af41 L, BUN/Creatinine Ratio 25.4 H, Glucose 112 H, Calcium 8.1 L, Total Bilirubin0.20, AST 27, ALT 20, Alkaline Phosphatase 74, Total Protein 6.1 L, Albumin 2.6 L, Globulin 3.5, Albumin/Globulin Ratio 0.7 L Cardiology Labs/Tests 03/04/23 06:58: WBC 6.8, RBC 3.57 L, Hgb 10.6 L, Hct 33.9 L, MCV 95.0, MCH 29.7,MCHC 31.3 L, Plt Count 181, MPV 11.4, Immature Gran % (Auto) 0.300, Neut % (Auto) 58.0, Lymph % (Auto) 28.5, Adams % (Auto) 8.8, Eos % (Auto) 3.7, Baso % (Auto) 0.7, Absolute Neuts (auto) 4.0, Nucleated RBC % 0, Sodium 139, Potassium 4.3, Chloride 113 H, Carbon Dioxide 24.0, Anion Gap 2 L, BUN 33 H, Creatinine 1.30 H, Est GFR (MDRD) Af Amer 50 L, Est GFR (MDRD) Non-Af 41 L, BUN/Creatinine Ratio 25.4 H, Glucose 112 H, Calcium 8.1 L, Total Bilirubin 0.20 Rhythm: EKG: ECHO: Stress Test: Cardiac Cath: PCI: CT Surgery: Holter monitor: EPS: PPM: CXR: Chest CT Scan: Radiography Diagnostic Testing: Radiology Impression Echocardiogram 03/01/23 13:09 Interpretation Summary Normal LV size. Left ventricular systolic function is lower limits of normal. The left ventricular ejection fraction is 50 %. There are regional wall motion abnormalities as specified. Pulmonary artery systolic pressure is 45 mmHg. Contrast injection was performed. Ordering Physician: Georges Mcdonald Referring Physician: Neville Serrano Chi Performed By: Guanakito Suarez RCS Physical Exam Const alert, oriented x3 and no apparent distress General Appearance: cooperative HEENT hearing grossly normal bilaterally Head and Scalp: atraumatic Eyes EOMs intact bilaterally Neck General: normal visual inspection Chest inspection of chest normal and palpation of chest normal Resp normal respiratory effort Auscultation: clear to auscultation bilaterally Cardio regular rate, regular rhythm, S1 normal heart sound and S2 normal heart sound Jugular Venous Distention: JVD Heart Sounds: murmur systolic III/ harsh apex and axilla GI normal to inspection, nondistended, normoactive bowel sounds Extremity normal capillary refill and no pedal edema Peripheral Pulses: Yes pulses 2+ throughout and femoral pulses present Skin no rashes or lesions noted Neuro oriented x3 and CN's II-XII intact bilaterally Psych Appearance: grossly normal and appropriate Assessment & Plan Assessment/Plan (1) Non-ST elevated myocardial infarction: PLAN: She presented with a non-ST elevation myocardial infarction underwent a cardiac catheterization which demonstrated high-grade proximal to mid left anterior descending artery lesion. She underwent PCI of the above successfully. The plan was to continue her on the current medical therapy. She will be seen as an outpatient and can be discharged today. (2) Mitral regurgitation: PLAN: She does have at moderate mitral regurgitation. We will continue to monitor this. She will be seen again in the office and then will consider whether she would be a candidate for the mitral valve clip. (3) HTN (hypertension), benign: PLAN: She will continue her current antihypertensive therapy. 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, 2023 acute HLD (hyperlipidemia) chronic Mitral regurgitation chronic [facility] Work Phone: [phone]) 878-126610-30-2023 Evaluation note* Diagnosis Onset Date Resolution Status Admit Date HTN (hypertension), benign acute February 22, 2025 3:03pm Stented coronary artery March 03, 2023 acut e February 22, 2025 3:03pm HLD (hyperlipidemia) chronic 2024 3:03pm Mitral regurgitation chronic 2024 3:03pm [facility] Work Phone: 1([phone] 620-559910-30-2023 Progress note Author Jeovanny Bal [facility] March 03, 2023 11:37am Note Date/Time March 03, 2023 1 1:17am [facility] Medical Records Department [address] [place] [address] Progress Note - Cardiology 03/03/23 1114 MR#: [id number] Acct: [id number] Name: EUGENIA MOMIN Rep #:[id number] : 1935 87 From: Jeovanny Bal MD PCP: Dr. Neville Serrano MD Status:ADM I N Location: [place] [address] Subjective Subjective Patient seen and evaluated. Underwent cardiac catheterization today. Objective Data Vital Signs: Vital Signs Temp Pulse Resp BP Pulse Ox O2 Del Method O2 Flow Rate 98.1 F 68 16 119/80 98 Room Air 2 03/03/23 07:36 03/03/23 07:39 03/03/23 07:36 03/03/23 07:39 03/03/23 07:36 03/03/23 07:51 03/01/23 06:00 Oxygen Flow Rate (L/min) 2 Oxygen Delivery Method Room Air Weight: 206 lb 9.17 oz Body Mass Index (BMI) 36.6 Intake & Output: Intake and Output for Last 24 Hours 03/01/23 03/02/23 03/03/23 23:59 23:59 23:59 Intake Total 358.91 / 358.91 2519.92 / 2519.92 85.62 / 85.62 Balance 358.91 / 358.91 2519.92 / 2519.92 85.62 / 85.62 Lab / Micro Data 03/02/23 16:03 03/02/23 05:24 Labs: Laboratory Results - last 24 hr 03/02/23 16:03: Hgb 11.4 L, Hct 34.8 L 03/03/23 05:33: APTT 60.0 H Cardiology Labs/Tests 03/02/23 16:03: Hgb 11.4 L, Hct 34.8 L 03/03/23 05:33: APTT 60.0 H Rhythm: EKG: ECHO: Stress Test: Cardiac Cath: PCI: CT Surgery: Holter monitor: EPS: PPM: CXR: Chest CT Scan: Physical Exam Const alert, oriented x3 and no apparent distress General Appearance: cooperative HEENT hearing grossly normal bilaterally Head and Scalp: atraumatic Eyes EOMs intact bilaterally Neck General: normal visual inspection Chest inspection of chest normal and palpation of chest normal Resp normal respiratory effort Auscultation: clear to auscultation bilaterally Cardio regular rate, regular rhythm, S1 normal heart sound and S2 normal heart sound Jugular Venous Distention: JVD Heart Sounds: murmur systolic III/ harsh apex and axilla GI normal to inspection, nondistended, normoactive bowel sounds Extremity normal capillary refill and no pedal edema Peripheral Pulses: Yes pulses 2+ throughout and femoral pulses present Skin no rashes or lesions noted Neuro oriented x3 and CN's II-XII intact bilaterally Psych Appearance: grossly normal and appropriate Assessment & Plan Assessment/Plan (1) Non-ST elevated myocardial infarction: PLAN: She presented with a non-ST elevation myocardial infarction underwent a cardiac catheterization which demonstrated high-grade proximal to mid left anterior descending artery lesion. She underwent PCI of the above successfully. The plan was to continue her on the current medical therapy. (2) Mitral regurgitation: PLAN: She does have at least moderate to moderately severe mitral regurgitation. We will continue to monitor this. She will be seen again in the office and then will consider whether she would be a candidate for the mitral valve clip. (3) HTN (hypertension), benign: PLAN: She will continue her current antihypertensive therapy. 03/03/23 1137 <Electronically signed by Jeovanny Bal MD> Cosigner Signature (if applicable): CC: ~ Signed [facility] Work Phone: 1([phone]) 388-446410-30-2023 Progress note Author Antwon Peguero [facility] March 03, 2023 10:28am Note Date/Time March 03, 2023 1 0:28am [facility] Medical Records Department [address] [place] [address] Progress Note - Hospitalist 03/03/23 1027 MR#: [id number] Acct: [id number] Name: EUGENIA MOMIN Rep #:[id number] : 1935 87 From: Antwon alvarez MD PCP: Dr. Neville Serrano MD Status:ADM I N Location: [place] [address] Subjective Subjective Doing well, no chest pain overnight. Plan for cath today Objective Data Objective Data Vital Signs: Vital Signs Temp Pulse Resp BP Pulse Ox O2 Del Method O2 Flow Rate 98.1 F 68 16 119/80 98 Room Air 2 03/03/23 07:36 03/03/23 07:39 03/03/23 07:36 03/03/23 07:39 03/03/23 07:36 03/03/23 07:51 03/01/23 06:00 Oxygen Flow Rate (L/min) 2 Oxygen Delivery Method Room Air Weight: 206 lb 9.17 oz Body Mass Index (BMI) 36.6 Intake & Output: Intake and Output for Last 24 Hours 03/02/23 03/03/23 03/04/23 03:59 03:59 03:59 Intake Total 1184.58 / 1184.58 1519.92 / 1519.92 85.62 / 85.62 Balance 1184.58 / 1184.58 1519.92 / 1519.92 85.62 / 85.62 Lab / Micro Data 03/02/23 16:03 03/02/23 05:24 Labs: Laboratory Results - last 24 hr 03/02/23 16:03: Hgb 11.4 L, Hct 34.8 L 03/03/23 05:33: APTT 60.0 H Physical Exam Narrative General: Alert, Oriented x3, Cooperative, No apparent distress HEENT: Atraumatic, PERRLA, EOMI, Normocephalic Oral: Moist Mucosa Neck: Supple, No JVD Lungs: Diminished, Normal air movement, No rhonchi, No wheeze, No rales Cardiovascular: Regular rate, Regular Rhythm, Normal S1, Normal S2, No murmurs Abdomen: Soft, Non Tender, Non-Distended, No Hepato-splenomegaly Extremities: No edema, Capillary Refill Less than 3 Seconds Skin: No rashes, No breakdown Musculoskeletal: No Tenderness to Palpation of Joints or Extremities Neurological: Cranial nerves II-XII grossly intact, Motor Exam 5/5 strength throughout, Sensory exam intact to light touch and pain Psych/Mental Status: Normal Affect, Appropriate Assessment & Plan Assessment/Plan (1) Non-ST elevated myocardial infarction: PLAN: Plan 1. Non-STEMI/HTN/HLD/chronic diastolic CHF ? Troponin is elevated to over 17,000 ? Appreciate cardiology's assistance, plan for heart cath today ? Continue with the heparin drip ? Continue with aspirin was loaded with Plavix in the ER ? Can resume her home blood pressure medications, will monitor and make adjustments ? As she had an echo in August 2022 with an EF of 65% and moderately severe mitral valve insufficiency ? Her stress test in September was slightly abnormal with mild anterior ischemia 2. Hypothyroidism ? Stable ? Continue with Synthroid 3. Anxiety/depression ? Stable ? Continue with Paxil DVT: Heparin drip Charges/Coding Visit Charges Inpatient E&M: 87329 Subs Hosp L2 03/03/23 1028 <Electronically signed by Antwon Peguero MD> Cosigner Signature (if applicable): CC: ~ Signed [facility] Work Phone: 1([phone]) 781-253210-29-2023 Progress note Author Antwon Peguero [facility] March 02, 2023 10:24am Note Date/Time March 02, 2023 1 0:24am [facility] Medical Records Department [facility] [place] [address] Progress Note - Hospitalist 03/02/23 1024 MR#: [id number] Acct: [id number] Name: EUGENIA MOMIN Rep #:[id number] : 1935 87 From: Antwon alvarez MD PCP: Dr. Neville Serrano MD Status:ADM I N Location: [place] [address] Subjective Subjective Doing very well today, no issues overnight. Denies any chest pain Objective Data Objective Data Vital Signs: Vital Signs Temp Pulse Resp BP Pulse Ox O2 Del Method O2 Flow Rate 98.4 F 65 16 110/48 L 97 Room Air 2 03/02/23 09:08 03/02/23 09:22 03/02/23 09:08 03/02/23 09:22 03/02/23 09:08 03/02/23 09:08 03/01/23 06:00 Oxygen Flow Rate (L/min) 2 Oxygen Delivery Method Room Air Weight: 206 lb 9.17 oz Body Mass Index (BMI) 36.6 Intake & Output: Intake and Output for Last 24 Hours 03/01/23 03/02/23 03/03/23 03:59 03:59 03:59 Intake Total 255.10 / 255.10 1184.58 / 1184.58 132.37 / 132.37 Balance 255.10 / 255.10 1184.58 / 1184.58 132.37 / 132.37 Lab / Micro Data 03/02/23 05:24 03/02/23 05:24 Labs: Laboratory Results - last 24 hr 03/01/23 15:45: APTT 60.9 H 03/01/23 20:50: APTT 65.7 H 03/02/23 05:24: WBC 7.8, RBC 3.74 L, Hgb 11.0 L, Hct 34.8 L, MCV 93.0, MCH 29.4,MCHC 31.6 L, RDW Std Deviation 43.8, RDW Coeff of Danelle 12.8, Plt Count 196, MPV 11.1, Immature Gran % (Auto) 0.300, Neut % (Auto) 49.0, Lymph % (Auto) 37.3, Adams % (Auto) 9.5, Eos % (Auto) 3.1, Baso % (Auto) 0.8, Absolute Neuts (auto) 3.8, Absolute Lymphs (auto) 2.90, Nucleated RBC % 0, Sodium 135 L, Potassium 4.3, Chloride 109 H, Carbon Dioxide 24.0, Anion Gap 2 L, BUN 57 H, Creatinine 1.59 H, Estim Creat Clear Calc 20.62, Est GFR (MDRD) Af Amer 40 L, Est GFR (MDRD) Non-Af 33 L, BUN/Creatinine Ratio 35.8 H, Glucose 111 H, Calcium 8.3 L 03/02/23 08:19: APTT 70.8 H Physical Exam Narrative General: Alert, Oriented x3, Cooperative, No apparent distress HEENT: Atraumatic, PERRLA, EOMI, Normocephalic Oral: Moist Mucosa Neck: Supple, No JVD Lungs: Diminished, Normal air movement, No rhonchi, No wheeze, No rales Cardiovascular: Regular rate, Regular Rhythm, Normal S1, Normal S2, No murmurs Abdomen: Soft, Non Tender, Non-Distended, No Hepato-splenomegaly Extremities: No edema, Capillary Refill Less than 3 Seconds Skin: No rashes, No breakdown Musculoskeletal: No Tenderness to Palpation of Joints or Extremities Neurological: Cranial nerves II-XII grossly intact, Motor Exam 5/5 strength throughout, Sensory exam intact to light touch and pain Psych/Mental Status: Normal Affect, Appropriate Assessment & Plan Assessment/Plan (1) Non-ST elevated myocardial infarction: PLAN: Plan 1. Non-STEMI/HTN/HLD/chronic diastolic CHF ? Troponin is elevated to over 17,000 ? Appreciate cardiology's assistance, plan for cath on Friday ? Continue with the heparin drip ? Continue with aspirin was loaded with Plavix in the ER ? Can resume her home blood pressure medications, will monitor and make adjustments ? As she had an echo in August 2022 with an EF of 65% and moderately severe mitral valve insufficiency ? Her stress test in September was slightly abnormal with mild anterior ischemia 2. Hypothyroidism ? Stable ? Continue with Synthroid 3. Anxiety/depression ? Stable ? Continue with Paxil DVT: Heparin drip Charges/Coding Visit Charges Inpatient E&M: 50802 Subs Hosp L2 03/02/23 1024 <Electronically signed by Antwon Peguero MD> Cosigner Signature (if applicable): CC: ~ Signed [facility] Work Phone: 1(167) 674-290510-28-2023 Consult note Author Georges Mcdonald [facility] March 01, 2023 1:07pm Note Date/Time March 01, 2023 1 :07pm [facility] Medical Records Department [address] [place] [address] Consultation - Cardiology 03/01/23 1302 MR#: [id number] Acct: [id number] Name: EUGENIA MOMIN Rep #:[id number] : 1935 87 From: Georges Mcdonald MD PCP: Dr. Neville Serrano MD Status:ADM I N Location: [place] [address] Assessment & Plan Assessment/Plan (1) Non-ST elevated myocardial infarction: PLAN: ECG shows normal sinus rhythm with nonspecific ST changes. Presently asymptomatic. Discontinue nitroglycerin infusion. Start on Nitropaste. Continue aspirin and Plavix. Beta-blockers. Switch to metoprolol. Check echo. Further course of action discussed with patient in detail. Coronary angiographyversus medical management discussed. Risks benefits and alternatives of coronary angiography discussed with patient in detail. Particular emphasis was given to the risk of contrast-induced nephropathy in view of her baseline renal insufficiency. She understand these and wishes to proceed with coronary angiography and possible revascularization. We will schedule for the same on Friday with her primary [place] line attendant, Dr. Bal. (2) CKD (chronic kidney disease), stage III: PLAN: Monitor creatinine. Decrease lisinopril to 5 mg once daily. (3) HLD (hyperlipidemia): PLAN: On atorvastatin. (4) Mitral regurgitation: PLAN: History of moderately severe mitral regurgitation. Repeat echocardiogram. HPI Consult Data Date of Consult: 03/01/23 HPI Narrative Reason for Consultation: NSTEMI HPI Narrative: Patient has past medical history significant for mitral regurgitation, chronic kidney disease, dyslipidemia and hypertension. She presented to the emergency room yesterday with complaints of chest discomfort that started on . She went to sleep with it on . Friday she continued to have chest discomfort and as it was not relieving, she presented to the emergency room. She denies any radiation of the chest discomfort to the arm neck or jaw. Some associated shortness of breath. No diaphoresis. Presently she is asymptomatic. [facility] Medical History (Updated 03/01/23 @ 13:[address] Georges Mcdonald MD) Anxiety Anxiety and depression CHF (congestive heart failure) CKD (chronic kidney disease), stage III Depression HLD (hyperlipidemia) Hypertension Hypothyroidism Myocardial infarct Non-smoker Obesity Home Medications paroxetine HCl 40 mg tablet 40 mg PO DAILY . 08/11/22 [History Last Taken 02/27/23] aspirin 81 mg tablet,delayed release 81 mg PO BREAKFAST #30 tabs 08/13/22 [Rx Last Taken 02/28/23] levothyroxine 88 mcg tablet 88 mcg PO DAILY 08/22/22 [History Last Taken 02/27/23] atenolol 50 mg tablet (Tenormin) 50 mg PO DAILY BP #90 tabs 10/01/22 [Rx Last Taken 02/28/23] atorvastatin 40 mg tablet 40 mg PO QHS #90 tabs 10/01/22 [Rx Last Taken 02/27/23] furosemide 40 mg tablet 40 mg PO DAILY #90 tabs 10/01/22 [Rx Last Taken 02/27/23] lisinopril 10 mg tablet 10 mg PO DAILY #90 tabs 10/01/22 [Rx Last Taken 02/28/23] spironolactone 25 mg tablet 12.5 mg (1/2 x 25 mg) PO DAILY #45 tabs 10/01/22 [Rx Last Taken 02/27/23] Allergy/AdvReac Type Severity Reaction Status Date / Time No Known Allergies Allergy Verified 02/28/23 10:11 Family History Mother Heart disease Hypertension CHF (congestive heart failure) Father Heart disease Hypertension CHF (congestive heart failure) CAD (coronary artery disease) Myocardial infarction Surgical History History of carpal tunnel release History of tonsillectomy and adenoidectomy Social History household members: none Smoking Status: Never smoker alcohol intake: never substance use type: does not use Physical Exam Const Constitutional Narrative: Comfortable. No apparent distress. Heart sounds 1 and 2 are noted. No murmursor rubs are noted. Chest is clear to auscultation bilaterally. Alert oriented x3. No ankle edema noted. Risk Stratification Risk Stratification Applicable: No Objective Data Vital Signs: Vital Signs Temp Pulse Resp BP Pulse Ox O2 Del Method O2 Flow Rate 98.1 F 61 18 103/51 L 96 Room Air 2 03/01/23 11:00 03/01/23 12:10 03/01/23 12:10 03/01/23 12:10 03/01/23 12:10 03/01/23 12:10 03/01/23 06:00 Oxygen Flow Rate (L/min) 2 Oxygen Delivery Method Room Air Weight: 206 lb 9.17 oz Body Mass Index (BMI) 36.6 Intake & Output: Intake and Output for Last 24 Hours 02/27/23 02/28/23 03/01/23 23:59 23:59 23:59 Intake Total 80.77 / 180.77 278.11 / 278.11 Balance 80.77 / 180.77 278.11 / 278.11 Lab / Micro Data 03/01/23 06:17 03/01/23 06:17 Labs: Laboratory Results - last 24 hr 02/28/23 13:55: Troponin I High Sens 12447 H* 02/28/23 17:47: PT 13.6, INR 1.0, APTT 23.4 L, Troponin I High Sens 80284 H* 03/01/23 00:42: APTT 193.5 H* 03/01/23 06:17: WBC 9.3, RBC 3.92 L, Hgb 11.7 L, Hct 36.3 L, MCV 92.6, MCH 29.8,MCHC 32.2, RDW Std Deviation 43.2, RDW Coeff of Danelle 12.8, Plt Count 212, MPV 11.2, Immature Gran % (Auto) 0.400, Neut % (Auto) 52.9, Lymph % (Auto) 34.2, Adams % (Auto) 10.0, Eos % (Auto) 1.9, Baso % (Auto) 0.6, Absolute Neuts (auto) 4.9, Absolute Lymphs (auto) 3.18, Nucleated RBC % 0, Sodium 134 L, Potassium 4.2,Chloride 103, Carbon Dioxide 24.0, Anion Gap 7, BUN 51 H, Creatinine 2.04 H, Estim Creat Clear Calc 16.07, Est GFR (MDRD) Af Amer 30 L, Est GFR (MDRD) Non-Af25 L, BUN/Creatinine Ratio 25.0 H, Glucose 127 H, Calcium 8.2 L 03/01/23 09:31: APTT 66.8 H Cardiology Labs/Tests 02/28/23 17:47: PT 13.6, INR 1.0, APTT 23.4 L 03/01/23 00:42: APTT 193.5 H* 03/01/23 06:17: WBC 9.3, RBC 3.92 L, Hgb 11.7 L, Hct 36.3 L, MCV 92.6, MCH 29.8,MCHC 32.2, Plt Count 212, MPV 11.2, Immature Gran % (Auto) 0.400, Neut % (Auto) 52.9, Lymph % (Auto) 34.2, Adams % (Auto) 10.0, Eos % (Auto) 1.9, Baso % (Auto) 0.6, Absolute Neuts (auto) 4.9, Nucleated RBC % 0, Sodium 134 L, Potassium 4.2, Chloride 103, Carbon Dioxide 24.0, Anion Gap 7, BUN 51 H, Creatinine 2.04 H, EstGFR (MDRD) Af Amer 30 L, Est GFR (MDRD) Non-Af 25 L, BUN/Creatinine Ratio 25.0 H, Glucose 127 H, Calcium 8.2 L 03/01/23 09:31: APTT 66.8 H Rhythm: EKG: ECHO: Stress Test: Cardiac Cath: PCI: CT Surgery: Holter monitor: EPS: PPM: CXR: Chest CT Scan: 03/01/23 1307 <Electronically signed by Georges Mcdonald MD> Cosigner Signature (if applicable): CC: Dr. Georges Mcdonald MD; Dr. Neville Serrano MD~ Signed [facility] Work Phone: 1(416) 545-741810-28-2023 Progress note Author Antwon Peguero [facility] March 01, 2023 12:22pm Note Date/Time March 01, 2023 1 2:22pm [facility] Medical Records Department [address] [place] [address] Progress Note - Hospitalist 03/01/23 1220 MR#: [id number] Acct: [id number] Name: EUGENIA MOMIN Rep #:[id number] : 1935 87 From: Antwon alvarez MD PCP: Dr. Neville Serrano MD Status:ADM I N Location: [place] [address] Subjective Subjective Doing well, chest pain is resolved Objective Data Objective Data Vital Signs: Vital Signs Temp Pulse Resp BP Pulse Ox O2 Del Method O2 Flow Rate 98.1 F 61 18 103/51 L 96 Room Air 2 03/01/23 11:00 03/01/23 12:10 03/01/23 12:10 03/01/23 12:10 03/01/23 12:10 03/01/23 12:10 03/01/23 06:00 Oxygen Flow Rate (L/min) 2 Oxygen Delivery Method Room Air Weight: 206 lb 9.17 oz Body Mass Index (BMI) 36.6 Intake & Output: Intake and Output for Last 24 Hours 02/28/23 03/01/23 03/02/23 03:59 03:59 03:59 Intake Total 255.10 / 255.10 103.78 / 103.78 Balance 255.10 / 255.10 103.78 / 103.78 Lab / Micro Data 03/01/23 06:17 03/01/23 06:17 Labs: Laboratory Results - last 24 hr 02/28/23 13:55: Troponin I High Sens 73591 H* 02/28/23 17:47: PT 13.6, INR 1.0, APTT 23.4 L, Troponin I High Sens 80325 H* 03/01/23 00:42: APTT 193.5 H* 03/01/23 06:17: WBC 9.3, RBC 3.92 L, Hgb 11.7 L, Hct 36.3 L, MCV 92.6, MCH 29.8,MCHC 32.2, RDW Std Deviation 43.2, RDW Coeff of Danelle 12.8, Plt Count 212, MPV 11.2, Immature Gran % (Auto) 0.400, Neut % (Auto) 52.9, Lymph % (Auto) 34.2, Adams % (Auto) 10.0, Eos % (Auto) 1.9, Baso % (Auto) 0.6, Absolute Neuts (auto) 4.9, Absolute Lymphs (auto) 3.18, Nucleated RBC % 0, Sodium 134 L, Potassium 4.2, Chloride 103, Carbon Dioxide 24.0, Anion Gap 7, BUN 51 H, Creatinine 2.04 H, Estim Creat Clear Calc 16.07, Est GFR (MDRD) Af Amer 30 L, Est GFR (MDRD) Non-Af 25 L, BUN/Creatinine Ratio 25.0 H, Glucose 127 H, Calcium 8.2 L 03/01/23 09:31: APTT 66.8 H Physical Exam Narrative General: Alert, Oriented x3, Cooperative, No apparent distress HEENT: Atraumatic, PERRLA, EOMI, Normocephalic Oral: Moist Mucosa Neck: Supple, No JVD Lungs: Diminished, Normal air movement, No rhonchi, No wheeze, No rales Cardiovascular: Regular rate, Regular Rhythm, Normal S1, Normal S2, No murmurs Abdomen: Soft, Non Tender, Non-Distended, No Hepato-splenomegaly Extremities: No edema, Capillary Refill Less than 3 Seconds Skin: No rashes, No breakdown Musculoskeletal: No Tenderness to Palpation of Joints or Extremities Neurological: Cranial nerves II-XII grossly intact, Motor Exam 5/5 strength throughout, Sensory exam intact to light touch and pain Psych/Mental Status: Normal Affect, Appropriate Assessment & Plan Assessment/Plan (1) Non-ST elevated myocardial infarction: PLAN: Plan 1. Non-STEMI/HTN/HLD/chronic diastolic CHF ? Troponin is elevated to over 17,000 ? Appreciate cardiology's assistance ? Continue with the heparin drip as well as the nitroglycerin drip ? Continue with aspirin was loaded with Plavix in the ER ? Can resume her home blood pressure medications, will monitor and make adjustments ? As she had an echo in August 2022 with an EF of 65% and moderately severe mitral valve insufficiency ? Her stress test in September was slightly abnormal with mild anterior ischemia 2. Hypothyroidism ? Stable ? Continue with Synthroid 3. Anxiety/depression ? Stable ? Continue with Paxil DVT: Heparin drip Charges/Coding Visit Charges Inpatient E&M: 87684 Subs Hosp L2 03/01/23 1222 <Electronically signed by Antwon Peguero MD> Cosigner Signature (if applicable): CC: ~ Signed [facility] Work Phone: 1(574) 307-855010-27-2023 History and physical note Author Antwon Peguero [facility] February 28, 2023 4:56pm Note Date/Time February 28, 2023 4 :56pm [facility] Medical Records Department [address] [place] [address] H&P Exam - Hospitalist 02/28/23 1650 MR#: [id number] Acct: [id number] Name: EUGENIA MOMIN Rep #:[id number] : 1935 87 From: Antwon alvarez MD PCP: Dr. Neville Serrano MD Status:ADM I N Location: [place] [address] HPI - General General Date of Admission: 02/28/23 HPI Narrative EUGENIA MOMIN, is a 87 F who presents with chest pain that started last evening. She is unclear as to how long it lasted and she is unsure whether or not it completely went away or features diminished in intensity. However she had significant chest pain at around 3 PM yesterday afternoon and then it slightly improved or resolved and then this morning it recurred with similar intensity as yesterday afternoon so she presented to the ER. In the ER she had troponin of over 17,000 which has now increased to 21,000. She restarted havingsome more chest pain so cardiology was notified and they recommended a heparin drip as well as nitro drip. No ischemic changes on the EKG are evident. The chest pain sits over her left chest without any significant radiation. No lightheadedness or dizziness. [facility] Medical History (Updated 02/28/23 @ 14:47 by Teri Kent) Anxiety Anxiety and depression CHF (congestive heart failure) CKD (chronic kidney disease), stage III Depression HLD (hyperlipidemia) Hypertension Hypothyroidism Myocardial infarct Non-smoker Obesity Home Medications paroxetine HCl 40 mg tablet 40 mg PO DAILY . 08/11/22 [History Last Taken 02/27/23] aspirin 81 mg tablet,delayed release 81 mg PO BREAKFAST #30 tabs 08/13/22 [Rx Last Taken 02/28/23] levothyroxine 88 mcg tablet 88 mcg PO DAILY 08/22/22 [History Last Taken 02/27/23] atenolol 50 mg tablet (Tenormin) 50 mg PO DAILY BP #90 tabs 10/01/22 [Rx Last Taken 02/28/23] atorvastatin 40 mg tablet 40 mg PO QHS #90 tabs 10/01/22 [Rx Last Taken 02/27/23] furosemide 40 mg tablet 40 mg PO DAILY #90 tabs 10/01/22 [Rx Last Taken 02/27/23] lisinopril 10 mg tablet 10 mg PO DAILY #90 tabs 10/01/22 [Rx Last Taken 02/28/23] spironolactone 25 mg tablet 12.5 mg (1/2 x 25 mg) PO DAILY #45 tabs 10/01/22 [Rx Last Taken 02/27/23] Allergy/AdvReac Type Severity Reaction Status Date / Time No Known Allergies Allergy Verified 02/28/23 10:11 Family History Mother Heart disease Hypertension CHF (congestive heart failure) Father Heart disease Hypertension CHF (congestive heart failure) CAD (coronary artery disease) Myocardial infarction Surgical History History of carpal tunnel release History of tonsillectomy and adenoidectomy Social History household members: none Smoking Status: Never smoker alcohol intake: never substance use type: does not use ROS Constitutional Constitutional: Denies chills, fatigue, fever(s) or malaise Eyes Eyes: Denies blurry vision ENT HEENT: Denies headache(s) or nasal discharge Cardiovascular Cardiovascular: Reports chest pain and dyspnea on exertion; Denies syncope Respiratory/Chest Respiratory/Chest: Denies cough, shortness of breath at rest or shortness of breath with exertion Gastrointestinal Gastrointestinal: Denies constipation, diarrhea, nausea or vomiting Genitourinary Genitourinary: Denies dysuria Neurologic Neurologic: Denies focal weakness, numbness or tremor(s) Psychiatric Psychiatric: Denies anxiety or depression Vital Signs Vital Signs Vital Signs: 02/28/23 10:10 02/28/23 10:10 02/28/23 11:25 Temperature 96.8 F L Temperature Source Temporal Pulse Rate 89 Respiratory Rate 18 Respiratory Effort Normal Blood Pressure 112/57 L Blood Pressure Mean 75 Blood Pressure Source Blood Pressure Position Blood Pressure Location Pulse Ox 97 Oxygen Delivery Method Room Air Room Air Oxygen Flow Rate (L/min) 02/28/23 11:10 02/28/23 12:00 02/28/23 14:24 Temperature 98.0 F Temperature Source Oral Pulse Rate 65 65 67 Respiratory Rate 14 18 Respiratory Effort Blood Pressure 101/76 115/84 H Blood Pressure Mean 84 94 Blood Pressure Source Monitor Blood Pressure Position Semi-Fowlers Blood Pressure Location Right Arm Pulse Ox 98 98 96 Oxygen Delivery Method Room Air Room Air Room Air Oxygen Flow Rate (L/min) 02/28/23 13:00 02/28/23 14:56 02/28/23 16:12 Temperature 97.6 F L Temperature Source Pulse Rate 78 80 67 Respiratory Rate 14 20 H Respiratory Effort Blood Pressure 110/78 119/61 Blood Pressure Mean 88 80 Blood Pressure Source Monitor Blood Pressure Position Semi-Fowlers Blood Pressure Location Right Arm Pulse Ox 100 95 99 Oxygen Delivery Method Nasal Cannula Oxygen Flow Rate (L/min) 2 Weight Weight: 206 lb 9.17 oz Body Mass Index (BMI) 36.6 Physical Exam Narrative General: Alert, Oriented x3, Cooperative, No apparent distress HEENT: Atraumatic, PERRLA, EOMI, Normocephalic Oral: Moist Mucosa Neck: Supple, No JVD Lungs: Diminished, Normal air movement, No rhonchi, No wheeze, No rales Cardiovascular: Regular rate, Regular Rhythm, Normal S1, Normal S2, No murmurs Abdomen: Soft, Non Tender, Non-Distended, No Hepato-splenomegaly Extremities: No edema, Capillary Refill Less than 3 Seconds Skin: No rashes, No breakdown Musculoskeletal: No Tenderness to Palpation of Joints or Extremities Neurological: Cranial nerves II-XII grossly intact, Motor Exam 5/5 strength throughout, Sensory exam intact to light touch and pain Psych/Mental Status: Normal Affect, Appropriate Results Lab / Micro Data 02/28/23 11:37 02/28/23 11:37 Labs: Laboratory Results - last 24 hr 02/28/23 11:37: WBC 8.2, RBC 4.46, Hgb 13.3, Hct 40.1, MCV 89.9, MCH 29.8, MCHC 33.2, RDW Std Deviation 40.7, RDW Coeff of Danelle 12.4, Plt Count 242, MPV 10.8, Immature Gran % (Auto) 0.200, Neut % (Auto) 68.0, Lymph % (Auto) 24.0, Adams % (Auto) 6.7, Eos % (Auto) 0.5, Baso % (Auto) 0.6, Absolute Neuts (auto) 5.6, Absolute Lymphs (auto) 1.96, Nucleated RBC % 0, Sodium 134 L, Potassium 4.1, Chloride 104, Carbon Dioxide 24.0, Anion Gap 6, BUN 36 H, Creatinine 1.69 H, Estim Creat Clear Calc 19.40, Est GFR (MDRD) Af Amer 37 L, Est GFR (MDRD) Non-Af 30 L, BUN/Creatinine Ratio 21.3 H, Glucose 122 H, Calcium 8.9, Troponin I High Sens 59991 H* 02/28/23 13:55: Troponin I High Sens 69038 H* Radiology Impression Chest X-Ray 02/28/23 10:55 IMPRESSION: Borderline cardiomegaly. No acute abnormality is seen. Electronically Signed: Louis Felipe MD at 12:08 EDT , Assessment & Plan Assessment/Plan (1) Non-ST elevated myocardial infarction: PLAN: Plan 1. Non-STEMI/HTN/HLD/chronic diastolic CHF ? Troponin is elevated to over 17,000 ? Appreciate cardiology's assistance ? Continue with the heparin drip as well as the nitroglycerin drip ? Continue with aspirin was loaded with Plavix in the ER ? Can resume her home blood pressure medications, will monitor and make adjustments ? As she had an echo in August 2022 with an EF of 65% and moderately severe mitral valve insufficiency ? Her stress test in September was slightly abnormal with mild anterior ischemia 2. Hypothyroidism ? Stable ? Continue with Synthroid 3. Anxiety/depression ? Stable ? Continue with Paxil DVT: Heparin drip 75 minutes was spent on direct patient care, including documentation as well as chart review and collaboration with colleagues Charges/Coding Visit Charges Inpatient E&M: 01339 Init Hosp L3 02/28/23 5405 <Electronically signed by Antwon Peguero MD> Cosigner Signature (if applicable): CC: Dr. Antwon Peguero MD; Dr. Neville Serrano MD~ Signed [facility] Work Phone: 1(963) 646-540510-27-2023 Discharge summary Author Alphonso Thomas [facility] February 28, 2023 1:52pm Note Date/Time February 28, 2023 1 0:43am [facility] Medical Records Department [address] [place] [address] Emergency Department Summary 02/28/23 MR#: [id number] Acct: [id number] Name: EUGENIA MOMIN Rep #:[id number] : 1935 87 From: Alphonso Thomas MD PCP: Dr. Neville Serrano MD Status:ADM I N Location: [address] History of Present Illness Chief Complaint: Chest Pain Detail of Chief Complaint: Bilateral anterior chest indigestion Onset/Context/Timing Onset: Yesterday and Hours (Started at 1400 and stopped at 0300 today.) Activity at onset: sudden Timing: Intermittent Quality: Positive for Indigestion Location: Right Chest and Left Chest Current Severity: Gone Maximum Severity: Moderate Worsened By: Nothing Relieved By: Nothing Associated Symptoms: Positive for Nausea, Diaphoresis and Dyspnea; Negative for Cough, Fever, Lightheadedness, Acid Reflux or Palpitations Narrative Narrative: Patient is an 87-year-old woman with history of hypertension, valvular heart disease, stage III chronic kidney disease, hyperlipidemia and CHF. 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 Patient had an outpatient stress test that revealed mild reducible anterior ischemia. There is no cath report orother cardiovascular report. Patient states he has never had an AZ. There is no record of her having an AZ. She denies history of hiatal hernia, reflux or peptic ulcer disease. Denies black or maroon-colored stool. She did have an episode of emesis and there was no coffee grounds noted. She states she was sprain weeds with weed killer when this started. She did have an apple prior to it. She denied pain radiating through to her back. She denied pain going to her jaw, neck or upper extremity or extremities. Prior Similar Symptoms: No Recent Illness/Hospitalization: Yes (August/September this year for CHF. Patient had an abnormal stress test.) CVD Risk Factors: Positive for Hypertension and Hypercholesterolemia; Negative for Diabetes, Family History 1' </=55 or Smoking PE Risk Factors: Negative for Recent Travel/Surgery, Recent Immobilization, Prior DVT or PE, Cancer or OCP + Smoking + >/=35 TAD Risk Factors: Negative for Marfan's Syndrome, Hypertension or Family History [facility] Medical History Anxiety and depression CHF (congestive heart failure) CKD (chronic kidney disease), stage III HLD (hyperlipidemia) Hypothyroidism Obesity Home Medications paroxetine HCl 40 mg tablet 40 mg PO DAILY . 08/11/22 [History Last Taken 02/27/23] aspirin 81 mg tablet,delayed release 81 mg PO BREAKFAST #30 tabs 08/13/22 [Rx Last Taken 02/28/23] levothyroxine 88 mcg tablet 88 mcg PO DAILY 08/22/22 [History Last Taken 02/27/23] atenolol 50 mg tablet (Tenormin) 50 mg PO DAILY BP #90 tabs 10/01/22 [Rx Last Taken 02/28/23] atorvastatin 40 mg tablet 40 mg PO QHS #90 tabs 10/01/22 [Rx Last Taken 02/27/23] furosemide 40 mg tablet 40 mg PO DAILY #90 tabs 10/01/22 [Rx Last Taken 02/27/23] lisinopril 10 mg tablet 10 mg PO DAILY #90 tabs 10/01/22 [Rx Last Taken 02/28/23] spironolactone 25 mg tablet 12.5 mg (1/2 x 25 mg) PO DAILY #45 tabs 10/01/22 [Rx Last Taken 02/27/23] Allergy/AdvReac Type Severity Reaction Status Date / Time No Known Allergies Allergy Verified 02/28/23 10:11 Family History Mother Heart disease Hypertension CHF (congestive heart failure) Father Heart disease Hypertension CHF (congestive heart failure) CAD (coronary artery disease) Myocardial infarction Surgical History History of carpal tunnel release History of tonsillectomy and adenoidectomy Social History household members: none Smoking Status: Never smoker alcohol intake: never substance use type: does not use ROS ROS ED Constitutional Constitutional ED: Denies chills, fever(s), subjective, sweats or weight loss Eyes Eyes: Reports none; Denies blurry vision or change in vision ENT ENT ED: Denies ear pain or rhinorrhea Cardiovascular Cardiovascular: Reports as per HPI; Denies orthopnea or paroxysmal nocturnal dyspnea Respiratory/Chest Respiratory/Chest: Reports dyspnea and dyspnea on exertion; Denies cough, orthopnea, paroxysmal nocturnal dyspnea or sputum Gastrointestinal Gastrointestinal: Reports nausea and vomiting; Denies abdominal pain, constipation, diarrhea or melena Genitourinary Genitourinary ED: Denies dysuria, hematuria or urinary frequency Musculoskeletal Musculoskeletal: Denies arthralgias, back pain or myalgias Integumentary Denies rash Neurologic Neurologic: Denies headache(s), paresthesias or weakness Psychiatric Psychiatric: Denies anxiety or depression Endocrine Endocrinology: Denies cold intolerance or heat intolerance Hematologic/Lymphatic Hematologic/Lymphatic: Denies easy bleeding or easy bruising EXAM Physical Exam Const Vital Signs: 02/28/23 10:10 02/28/23 10:10 02/28/23 11:25 Temperature 96.8 F L Temperature Source Temporal Pulse Rate 89 Respiratory Rate 18 Respiratory Effort Normal Blood Pressure 112/57 L Blood Pressure Mean 75 Pulse Ox 97 Oxygen Delivery Method Room Air Room Air 02/28/23 11:10 02/28/23 12:00 Temperature Temperature Source Pulse Rate 65 65 Respiratory Rate 14 Respiratory Effort Blood Pressure 101/76 Blood Pressure Mean 84 Pulse Ox 98 98 Oxygen Delivery Method Room Air Room Air Positive well nourished, well developed and obese Constitutional Narrative: Vital signs are normal. General Appearance ED: well developed and NAD; Negative for pallor Nutritional Appearance: obese HEENT Reports TM's clear and moist mucous membranes Tympanic Membrane ED: Yes TM's clear Eyes PERRL and EOMs intact bilaterally General Eye ED: Negative for pale conjunctiva or scleral icterus Neck no lymphadenopathy, supple and no JVD Chest Wall inspection of chest normal and palpation of chest normal Resp normal respiratory effort and clear to auscultation bilaterally Cardio regular rate, regular rhythm, S1 normal heart sound, S2 normal heart sound and no murmurs Peripheral Pulses: pulses 2+ throughout GI normal to inspection, nondistended, normoactive bowel sounds, soft to palpation,non-tender, non-distended and no masses; Negative for hepatosplenomegaly GI Narrative: There is no palpable or pulse mass. There is no abdominal bruit. Back/Spine no CVA tenderness Extremity Extremity Narrative: Patient has mild pitting edema. Greater left than right. Patient states she had problem with swelling in her left lower extremity due to prior ankle flare this is a chronic issue. General Extremety ED: Yes edema General Extremity: edema Neuro oriented x3, CN's II-XII intact bilaterally, no sensory deficits noted and gait normal Sensorium / Orientation: awake and alert Psych mental status grossly normal Skin no rashes or lesions noted and no wounds General Skin Exam: Negative for jaundice or pallor Heart Score History: Slightly/Non-Suspicious Age: >/= 65 years Risk Factors: 1 or 2 Risk Factors Troponin: >/=3 x Normal Limit Score: 5 MDM MDM MDM Narrative Medical decision making narrative: Patient presents with indigestion. This may be due to cardiac versus noncardiacetiology. EKG, chest x-ray appropriate blood work was obtained as well as 2-hour troponin. Will discuss case with cardiology since the stress test that wasperformed in September that revealed mild reducible anterior ischemia. There was no follow-up cath that I am aware of. Chest x-ray was obtained to assess for hiatal hernia or pulmonary cause. History & Record Review Additional record(s) reviewed:: Prior inpatient record (Patient admitted for newonset CHF earlier this year.), Prior outpatient record and Prior labs Lab Data Attestation: I reviewed the patient's lab results. Lab results narrative: CBC is unremarkable. BMP is remarkable for BUN of 36 and creatinine of 1.69 with a GFR of 30. Glucose is 122 with a normal CO2 and anion gap. First troponin is 17,877. Labs: Laboratory Results - last 24 hr 02/28/23 11:37 WBC 8.2 RBC 4.46 Hgb 13.3 Hct 40.1 MCV 89.9 MCH 29.8 MCHC 33.2 RDW Std Deviation 40.7 RDW Coeff of Danelle 12.4 Plt Count 242 MPV 10.8 Immature Gran % (Auto) 0.200 Neut % (Auto) 68.0 Lymph % (Auto) 24.0 Adams % (Auto) 6.7 Eos % (Auto) 0.5 Baso % (Auto) 0.6 Absolute Neuts (auto) 5.6 Absolute Lymphs (auto) 1.96 Nucleated RBC % 0 Sodium 134 L Potassium 4.1 Chloride 104 Carbon Dioxide 24.0 Anion Gap 6 BUN 36 H Creatinine 1.69 H Estim Creat Clear Calc 19.40 Est GFR (MDRD) Af Amer 37 L Est GFR (MDRD) Non-Af 30 L BUN/Creatinine Ratio 21.3 H Glucose 122 H Calcium 8.9 Troponin I High Sens 99443 H* Radiography Chest X-Ray - ED: 1 View and Read by ED Physician (Single view which reveals borderline cardiomegaly. Cardiac borders normal. Lung parenchyma is unremarkable. Perihilar regions unremarkable. Osseous trucks unremarkable. There is no evidence of effusion, infiltrate or pneumothorax. This was independent reviewedinterpreted by me at 1122.) Diagnostic Testing: Clinical Impression(s) from Imaging Studies Chest X-Ray 02/28/23 10:55 IMPRESSION: Borderline cardiomegaly. No acute abnormality is seen. Electronically Signed: Louis Felipe MD at 12:08 EDT , EKG Initial EKG: Attestation: I personally reviewed and interpreted this EKG as follows: Interpretation: Sinus Rhythm (Rate is 73. The EKG in my opinion is normal. MT interval is 176 milliseconds. QRS duration 82 ms. QT duration 414 ms. [place] is normal. Computer reads and ossific changes.) Management Discussion w/another healthcare provider: Hospitalist and Copper Tapper (Case discussed with Dr. Mcdonald. He would like patient loaded with Plavix. Plan is toperform cardiac catheterization on Friday. He does not want her anticoagulated since she is pain-free. Presumption is that she completed her infarct.) Critical Care Time Critical Care Time: Yes Critical care time (excluding procedures): 30-74 minutes (33), Including time spent: (History, physical, documentation, review of prior records), Discussing w/Patient &/or Family/Sales Representative Facility Services, Discussing w/Consultants (Discussed with cardiology and hospitalist for admission) and Arranging Admission or Transfer Discharge Plan Dx/Rx/DC Orders Clinical Impression: Non-ST elevated myocardial infarction, HTN (hypertension), benign, HLD (hyperlipidemia), Hypothyroidism, CKD (chronic kidney disease), stage III Disposition Disposition: Acute Care Hospital [facility] What to do if you have Problems For any increased pain, shortness of breath, bleeding, nausea or vomiting, chestpain, or any unexpected problems, contact your Primary Care Provider. Call [facility] ([phone]) or report to the closest Emergency Room. Call 911 if necessary. 02/28/23 1352 <Electronically signed by Alphonso Thomas MD> Cosigner Signature (if applicable): CC: Dr. Neville Serrano MD ~ Signed [facility] Work Phone: [phone] 520-623510-27-2023 Discharge summary Author Alphonso [facility] February 28, 2023 1:52pm Note Date/Time February 28, 2023 1 0:43am [facility] Medical Records Department [address] [place] [address] Emergency Department Summary 02/28/23 MR#: [id number] Acct: [id number] Name: EUGENIA MOMIN Rep #:[id number] : 1935 87 From: Alphonso Thomas MD PCP: Dr. Neville Serrano MD Status:ADM I N Location: [address] History of Present Illness Chief Complaint: Chest Pain Detail of Chief Complaint: Bilateral anterior chest indigestion Onset/Context/Timing Onset: Yesterday and Hours (Started at 1400 and stopped at 0300 today.) Activity at onset: sudden Timing: Intermittent Quality: Positive for Indigestion Location: Right Chest and Left Chest Current Severity: Gone Maximum Severity: Moderate Worsened By: Nothing Relieved By: Nothing Associated Symptoms: Positive for Nausea, Diaphoresis and Dyspnea; Negative for Cough, Fever, Lightheadedness, Acid Reflux or Palpitations Narrative Narrative: Patient is an 87-year-old woman with history of hypertension, valvular heart disease, stage III chronic kidney disease, hyperlipidemia and CHF. 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 Patient had an outpatient stress test that revealed mild reducible anterior ischemia. There is no cath report orother cardiovascular report. Patient states he has never had an AZ. There is no record of her having an AZ. She denies history of hiatal hernia, reflux or peptic ulcer disease. Denies black or maroon-colored stool. She did have an episode of emesis and there was no coffee grounds noted. She states she was sprain weeds with weed killer when this started. She did have an apple prior to it. She denied pain radiating through to her back. She denied pain going to her jaw, neck or upper extremity or extremities. Prior Similar Symptoms: No Recent Illness/Hospitalization: Yes (August/September this year for CHF. Patient had an abnormal stress test.) CVD Risk Factors: Positive for Hypertension and Hypercholesterolemia; Negative for Diabetes, Family History 1' </=55 or Smoking PE Risk Factors: Negative for Recent Travel/Surgery, Recent Immobilization, Prior DVT or PE, Cancer or OCP + Smoking + >/=35 TAD Risk Factors: Negative for Marfan's Syndrome, Hypertension or Family History [facility] Medical History Anxiety and depression CHF (congestive heart failure) CKD (chronic kidney disease), stage III HLD (hyperlipidemia) Hypothyroidism Obesity Home Medications paroxetine HCl 40 mg tablet 40 mg PO DAILY . 08/11/22 [History Last Taken 02/27/23] aspirin 81 mg tablet,delayed release 81 mg PO BREAKFAST #30 tabs 08/13/22 [Rx Last Taken 02/28/23] levothyroxine 88 mcg tablet 88 mcg PO DAILY 08/22/22 [History Last Taken 02/27/23] atenolol 50 mg tablet (Tenormin) 50 mg PO DAILY BP #90 tabs 10/01/22 [Rx Last Taken 02/28/23] atorvastatin 40 mg tablet 40 mg PO QHS #90 tabs 10/01/22 [Rx Last Taken 02/27/23] furosemide 40 mg tablet 40 mg PO DAILY #90 tabs 10/01/22 [Rx Last Taken 02/27/23] lisinopril 10 mg tablet 10 mg PO DAILY #90 tabs 10/01/22 [Rx Last Taken 02/28/23] spironolactone 25 mg tablet 12.5 mg (1/2 x 25 mg) PO DAILY #45 tabs 10/01/22 [Rx Last Taken 02/27/23] Allergy/AdvReac Type Severity Reaction Status Date / Time No Known Allergies Allergy Verified 02/28/23 10:11 Family History Mother Heart disease Hypertension CHF (congestive heart failure) Father Heart disease Hypertension CHF (congestive heart failure) CAD (coronary artery disease) Myocardial infarction Surgical History History of carpal tunnel release History of tonsillectomy and adenoidectomy Social History household members: none Smoking Status: Never smoker alcohol intake: never substance use type: does not use ROS ROS ED Constitutional Constitutional ED: Denies chills, fever(s), subjective, sweats or weight loss Eyes Eyes: Reports none; Denies blurry vision or change in vision ENT ENT ED: Denies ear pain or rhinorrhea Cardiovascular Cardiovascular: Reports as per HPI; Denies orthopnea or paroxysmal nocturnal dyspnea Respiratory/Chest Respiratory/Chest: Reports dyspnea and dyspnea on exertion; Denies cough, orthopnea, paroxysmal nocturnal dyspnea or sputum Gastrointestinal Gastrointestinal: Reports nausea and vomiting; Denies abdominal pain, constipation, diarrhea or melena Genitourinary Genitourinary ED: Denies dysuria, hematuria or urinary frequency Musculoskeletal Musculoskeletal: Denies arthralgias, back pain or myalgias Integumentary Denies rash Neurologic Neurologic: Denies headache(s), paresthesias or weakness Psychiatric Psychiatric: Denies anxiety or depression Endocrine Endocrinology: Denies cold intolerance or heat intolerance Hematologic/Lymphatic Hematologic/Lymphatic: Denies easy bleeding or easy bruising EXAM Physical Exam Const Vital Signs: 02/28/23 10:10 02/28/23 10:10 02/28/23 11:25 Temperature 96.8 F L Temperature Source Temporal Pulse Rate 89 Respiratory Rate 18 Respiratory Effort Normal Blood Pressure 112/57 L Blood Pressure Mean 75 Pulse Ox 97 Oxygen Delivery Method Room Air Room Air 02/28/23 11:10 02/28/23 12:00 Temperature Temperature Source Pulse Rate 65 65 Respiratory Rate 14 Respiratory Effort Blood Pressure 101/76 Blood Pressure Mean 84 Pulse Ox 98 98 Oxygen Delivery Method Room Air Room Air Positive well nourished, well developed and obese Constitutional Narrative: Vital signs are normal. General Appearance ED: well developed and NAD; Negative for pallor Nutritional Appearance: obese HEENT Reports TM's clear and moist mucous membranes Tympanic Membrane ED: Yes TM's clear Eyes PERRL and EOMs intact bilaterally General Eye ED: Negative for pale conjunctiva or scleral icterus Neck no lymphadenopathy, supple and no JVD Chest Wall inspection of chest normal and palpation of chest normal Resp normal respiratory effort and clear to auscultation bilaterally Cardio regular rate, regular rhythm, S1 normal heart sound, S2 normal heart sound and no murmurs Peripheral Pulses: pulses 2+ throughout GI normal to inspection, nondistended, normoactive bowel sounds, soft to palpation,non-tender, non-distended and no masses; Negative for hepatosplenomegaly GI Narrative: There is no palpable or pulse mass. There is no abdominal bruit. Back/Spine no CVA tenderness Extremity Extremity Narrative: Patient has mild pitting edema. Greater left than right. Patient states she had problem with swelling in her left lower extremity due to prior ankle flare this is a chronic issue. General Extremety ED: Yes edema General Extremity: edema Neuro oriented x3, CN's II-XII intact bilaterally, no sensory deficits noted and gait normal Sensorium / Orientation: awake and alert Psych mental status grossly normal Skin no rashes or lesions noted and no wounds General Skin Exam: Negative for jaundice or pallor Heart Score History: Slightly/Non-Suspicious Age: >/= 65 years Risk Factors: 1 or 2 Risk Factors Troponin: >/=3 x Normal Limit Score: 5 MDM MDM MDM Narrative Medical decision making narrative: Patient presents with indigestion. This may be due to cardiac versus noncardiacetiology. EKG, chest x-ray appropriate blood work was obtained as well as 2-hour troponin. Will discuss case with cardiology since the stress test that wasperformed in September that revealed mild reducible anterior ischemia. There was no follow-up cath that I am aware of. Chest x-ray was obtained to assess for hiatal hernia or pulmonary cause. History & Record Review Additional record(s) reviewed:: Prior inpatient record (Patient admitted for newonset CHF earlier this year.), Prior outpatient record and Prior labs Lab Data Attestation: I reviewed the patient's lab results. Lab results narrative: CBC is unremarkable. BMP is remarkable for BUN of 36 and creatinine of 1.69 with a GFR of 30. Glucose is 122 with a normal CO2 and anion gap. First troponin is 17,877. Labs: Laboratory Results - last 24 hr 02/28/23 11:37 WBC 8.2 RBC 4.46 Hgb 13.3 Hct 40.1 MCV 89.9 MCH 29.8 MCHC 33.2 RDW Std Deviation 40.7 RDW Coeff of Danelle 12.4 Plt Count 242 MPV 10.8 Immature Gran % (Auto) 0.200 Neut % (Auto) 68.0 Lymph % (Auto) 24.0 Adams % (Auto) 6.7 Eos % (Auto) 0.5 Baso % (Auto) 0.6 Absolute Neuts (auto) 5.6 Absolute Lymphs (auto) 1.96 Nucleated RBC % 0 Sodium 134 L Potassium 4.1 Chloride 104 Carbon Dioxide 24.0 Anion Gap 6 BUN 36 H Creatinine 1.69 H Estim Creat Clear Calc 19.40 Est GFR (MDRD) Af Amer 37 L Est GFR (MDRD) Non-Af 30 L BUN/Creatinine Ratio 21.3 H Glucose 122 H Calcium 8.9 Troponin I High Sens 17470 H* Radiography Chest X-Ray - ED: 1 View and Read by ED Physician (Single view which reveals borderline cardiomegaly. Cardiac borders normal. Lung parenchyma is unremarkable. Perihilar regions unremarkable. Osseous trucks unremarkable. There is no evidence of effusion, infiltrate or pneumothorax. This was independent reviewedinterpreted by me at 1122.) Diagnostic Testing: Clinical Impression(s) from Imaging Studies Chest X-Ray 02/28/23 10:55 IMPRESSION: Borderline cardiomegaly. No acute abnormality is seen. Electronically Signed: Louis Felipe MD at 12:08 EDT , EKG Initial EKG: Attestation: I personally reviewed and interpreted this EKG as follows: Interpretation: Sinus Rhythm (Rate is 73. The EKG in my opinion is normal. MT interval is 176 milliseconds. QRS duration 82 ms. QT duration 414 ms. [place] is normal. Computer reads and ossific changes.) Management Discussion w/another healthcare provider: Hospitalist and Copper T[employer] (Case discussed with Dr. Mcdonald. He would like patient loaded with Plavix. Plan is toperform cardiac catheterization on Friday. He does not want her anticoagulated since she is pain-free. Presumption is that she completed her infarct.) Critical Care Time Critical Care Time: Yes Critical care time (excluding procedures): 30-74 minutes (33), Including time spent: (History, physical, documentation, review of prior records), Discussing w/Patient &/or Family/Sales Representative Facility Services, Discussing w/Consultants (Discussed with cardiology and hospitalist for admission) and Arranging Admission or Transfer Discharge Plan Dx/Rx/DC Orders Clinical Impression: Non-ST elevated myocardial infarction, HTN (hypertension), benign, HLD (hyperlipidemia), Hypothyroidism, CKD (chronic kidney disease), stage III Disposition Disposition: Acute Care Hospital [facility] What to do if you have Problems For any increased pain, shortness of breath, bleeding, nausea or vomiting, chestpain, or any unexpected problems, contact your Primary Care Provider. Call [facility] ([phone]) or report to the closest Emergency Room. Call 911 if necessary. 02/28/23 1352 <Electronically signed by Alphonso Thomas MD> Cosigner Signature (if applicable): CC: Dr. Neville Serrano MD ~ Signed [facility] Work Phone: [phone]) 671-652204-11-[address] Varma [facility] August 13, 2022 8:45am Note Date/Time August 12, 2022 8:2 5am [facility] Medical Records Department [address] [place] [id number] Progress Note - Hospitalist 08/12/2215 MR#: [id number] Acct: [id number] Name: EUGENIA MOMIN Rep #:[id number] : 1935 86 From: Tien Mckeon PCP: Dr. Neville Serrano MD Status:ADM I N Location: [place] [address] Reason for Visit Reason for Visit: Diagnoses Heart failure, unspecified (08/11/22) Subjective Subjective Follow-up for shortness of breath and concern for heart failure. Objective Data Objective Data Vital Signs: Vital Signs Temp Pulse Resp BP Pulse Ox O2 Del Method 98.2 F 68 18 128/49 H 93 Room Air 08/11/22 23:25 04/09/23 23:25 08/11/22 23:25 08/11/22 23:25 08/12/22 07:42 08/12/22 07:42 Oxygen Delivery Method Room Air Weight: 199 lb 8.293 oz Body Mass Index (BMI) 35.3 Intake & Output: Intake and Output for Last 24 Hours 08/10/22 08/11/22 08/12/22 23:59 23:59 23:59 Intake Total 1120 / 1120 Output Total 200 / 200 Balance 1120 / 1120 -200 / -200 Lab / Micro Data Result Diagrams: 08/12/22 05:15 08/12/22 05:15 Labs: Laboratory Results - last 24 hr 08/11/22 13:35: WBC 9.6, RBC 4.67, Hgb 13.5, Hct 41.4, MCV 88.7, MCH 28.9, MCHC 32.6, RDW Std Deviation 41.2, RDW Coeff of Danelle 12.6, Plt Count 243, MPV 10.6, Immature Gran % (Auto) 0.200, Neut % (Auto) 70.9 H, Lymph % (Auto) 20.9, Adams % (Auto) 6.6, Eos % (Auto) 0.8, Baso % (Auto) 0.6, Absolute Neuts (auto) 6.8, Absolute Lymphs (auto) 2.01, Nucleated RBC % 0 08/11/22 13:35: D-Dimer Quant (PE/DVT) 0.88 H* 08/11/22 13:35: Sodium 137, Potassium 4.0, Chloride 107, Carbon Dioxide 23.0, Anion Gap 7, BUN 14, Creatinine 1.09 H, Estim Creat Clear Calc 30.65, Est GFR (MDRD) Af Amer 61, Est GFR (MDRD) Non-Af 51 L, BUN/Creatinine Ratio 12.8, Glucose 110 H, Calcium 9.0, Troponin I High Sens 08/11/22 13:35: B-Natriuretic Peptide 350.0 H 08/11/22 17:55: Magnesium 2.0 08/11/22 17:55: Procalcitonin < 0.04 08/11/22 19:53: Troponin I High Sens 08/12/22 05:15: WBC 6.8, RBC 4.23, Hgb 12.4, Hct 37.9, MCV 89.6, MCH 29.3, MCHC 32.7, RDW Std Deviation 41.1, RDW Coeff of Danelle 12.7, Plt Count 216, MPV 11.3, Immature Gran % (Auto) 0.300, Neut % (Auto) 45.2 L, Lymph % (Auto) 40.9, Adams % (Auto) 10.8 H, Eos % (Auto) 1.9, Baso % (Auto) 0.9, Absolute Neuts (auto) 3.1, Absolute Lymphs (auto) 2.78, Nucleated RBC % 0 08/12/22 05:15: Sodium 136, Potassium 3.3 L, Chloride 106, Carbon Dioxide 25.0, Anion Gap 5, BUN 13, Creatinine 1.06 H, Estim Creat Clear Calc 31.51, Est GFR (MDRD) Af Amer 63, Est GFR (MDRD) Non-Af 52 L, BUN/Creatinine Ratio 12.3, Glucose 99, Calcium 8.5, Total Bilirubin 0.50, AST 21, ALT 18, Alkaline Phosphatase 83, Total Protein 6.4, Albumin 2.9 L, Globulin 3.5, Albumin/GlobulinRatio 0.8 L, Triglycerides 148, Cholesterol 256 H, LDL Cholesterol 184 H, VLDL Cholesterol 30, HDL Cholesterol 42, TSH 4.57 H, Free T4 1.25 Micro: Microbiology 08/12/22 01:13 Urine, Clean Catch Legionella Antigen - Final 08/12/22 01:13 Urine, Clean Catch Streptococcus pneumoniae Antigen (M - Final 08/11/22 13:35 Nasal Secretion SARS-CoV-2 & FLU Antigen (Rapid) - Final Radiography Diagnostic Testing: Radiology Impression Chest X-Ray 08/11/22 13:22 IMPRESSION: No acute pulmonary process Electronically Signed: Yair Rousseau MD at 14:06 EDT Reading Location ID and State: [facility] / [place] , Service support , Chest CTA 08/11/22 14:13 IMPRESSION: No demonstrated pulmonary embolism or arterial dissection. Bilateral pleural effusions associated with minimal dependent consolidation within the lower lobes. Bilateral groundglass opacities, a nonspecific finding, may be secondary to edema and/or an infectious process. Borderline enlarged lymph nodes, may be reactive. Atherosclerosis. Degenerative changes of the thoracic spine. Electronically Signed: Latricia Aceves MD at 15:29 EDT , Assessment & Plan Assessment/Plan (1) CHF (congestive heart failure): PLAN: Plan The patient is an 86 y/o F came to ED for shortness of breath for 2 days. Patient has some sinus drainage. History of IBS and had loose stool and took Imodium. No fever. She also had chest discomfort in the midsternal region on Friday evening lasted for 15 minutes not associated with nausea diaphoresis or emesis. She had another episode of midsternal discomfort/tightness and is constant in nature. #1. Dyspnea with hypoxia consult for heart failure, unclear type or possible atypical viral infection: BNP elevated. Serial troponins negative. Magnesium and procalcitonin normal. TSH 4.5, free T4 normal. COVID-19 PCR and sputum culture pending. Urinary antigens are negative. Rapid SARS-CoV-2 and flu antigen are negative. Patient had CT angiogram chest which is individually reviewed. Does not show PE but small bilateral pleural effusion in lower lobeswith dependent atelectasis and bilateral groundglass opacities. 08/12: Echo shows EF 65% with mild concentric LVH. LA moderately enlarged. Milddiffuse mitral valve thickening, 3+ eccentric MR. Mild to moderate AI. Overallit is suggestive of acute on chronic HFpEF. #2. Hypertension: Continue home regimen including atenolol, norvasc, PRN hydralazine. #3. Hyperlipidemia: TC 256, LDL 184 HDL 42. On 40 mg atorvastatin. #4. Chronic Kidney Disease Stage IIIb: Admission BUN/Cr 14/1.09, baseline renalfunction primarily appears 1.0-1.3. Estimated creatinine clearance around 31 mm/min #5. Anxiety and depression: We will continue patient paroxetine regimen. #6. Hypothyroidism: continue patient home levothyroxine regimen, TSH and free T4 pending. #7. Obesity: Weight loss and lifestyle changes encouraged. #8. DVT Prophylaxis: Lovenox. #9 code CODE status: Patient JAILENE is her 2 daughters 1 of which is present and living will is currently in place. Discussed CODE status at length including difference between FULL code, DNR-CCA and DNR-CC status. Following discussions about the differences in these status, requested Full Code status. Microbiology Past 72 Hours 08/12/22 01:13 Urine, Clean Catch Legionella Antigen - Final 08/12/22 01:13 Urine, Clean Catch Streptococcus pneumoniae Antigen (M - Final 08/11/22 13:35 Nasal Secretion SARS-CoV-2 & FLU Antigen (Rapid) - Final Laboratory Results 08/11/22 13:35: WBC 9.6, RBC 4.67, Hgb 13.5, Hct 41.4, MCV 88.7, MCH 28.9, MCHC 32.6, RDW Std Deviation 41.2, RDW Coeff of Danelle 12.6, Plt Count 243, MPV 10.6, Immature Gran % (Auto) 0.200, Neut % (Auto) 70.9 H, Lymph % (Auto) 20.9, Adams % (Auto) 6.6, Eos % (Auto) 0.8, Baso % (Auto) 0.6, Absolute Neuts (auto) 6.8, Absolute Lymphs (auto) 2.01, Nucleated RBC % 0 08/11/22 13:35: D-Dimer Quant (PE/DVT) 0.88 H* 08/11/22 13:35: Sodium 137, Potassium 4.0, Chloride 107, Carbon Dioxide 23.0, Anion Gap 7, BUN 14, Creatinine 1.09 H, Estim Creat Clear Calc 30.65, Est GFR (MDRD) Af Amer 61, Est GFR (MDRD) Non-Af 51 L, BUN/Creatinine Ratio 12.8, Glucose 110 H, Calcium 9.0, Troponin I High Sens 08/11/22 13:35: B-Natriuretic Peptide 350.0 H 08/11/22 17:55: Magnesium 2.0 08/11/22 17:55: Procalcitonin < 0.04 08/11/22 19:53: Troponin I High Sens 24 08/12/22 05:15: WBC 6.8, RBC 4.23, Hgb 12.4, Hct 37.9, MCV 89.6, MCH 29.3, MCHC 32.7, RDW Std Deviation 41.1, RDW Coeff of Danelle 12.7, Plt Count 216, MPV 11.3, Immature Gran % (Auto) 0.300, Neut % (Auto) 45.2 L, Lymph % (Auto) 40.9, Adams % (Auto) 10.8 H, Eos % (Auto) 1.9, Baso % (Auto) 0.9, Absolute Neuts (auto) 3.1, Absolute Lymphs (auto) 2.78, Nucleated RBC % 0 08/12/22 05:15: Sodium 136, Potassium 3.3 L, Chloride 106, Carbon Dioxide 25.0, Anion Gap 5, BUN 13, Creatinine 1.06 H, Estim Creat Clear Calc 31.51, Est GFR (MDRD) Af Amer 63, Est GFR (MDRD) Non-Af 52 L, BUN/Creatinine Ratio 12.3, Glucose 99, Calcium 8.5, Total Bilirubin 0.50, AST 21, ALT 18, Alkaline Phosphatase 83, Total Protein 6.4, Albumin 2.9 L, Globulin 3.5, Albumin/GlobulinRatio 0.8 L, Triglycerides 148, Cholesterol 256 H, LDL Cholesterol 184 H, VLDL Cholesterol 30, HDL Cholesterol 42, TSH 4.57 H, Free T4 1.25 Clinical Impression(s) from Imaging Studies Chest X-Ray 08/11/22 13:22 IMPRESSION: No acute pulmonary process Chest CTA 08/11/22 14:13 IMPRESSION: No demonstrated pulmonary embolism or arterial dissection. Bilateral pleural effusions associated with minimal dependent consolidation within the lower lobes. Bilateral groundglass opacities, a nonspecific finding, may be secondary to edema and/or an infectious process. Borderline enlarged lymph nodes, may be reactive. Atherosclerosis. Degenerative changes of the thoracic spine. Charges/Coding Visit Charges Inpatient E&M: 38375 Subs Hosp L2 08/12/22 1704 <Electronically signed by Tien Varma MD> Cosigner Signature (if applicable): CC: ~ Signed ADDENDUM by Dr. Tien Varma MD on 08/13/22 at 0845 Addendum Patient was seen and examined. Shortness of breath is improved. 2+ bilateral leg swelling. BP elevated to high Physical exam findings. Physical exam General: Alert, Oriented x3, Cooperative HEENT: Atraumatic, PERRLA, EOMI, Normocephalic Oral: No Gingival or Mucosal Lesions/ Ulcerations Neck: Supple, No JVD, Negative Carotid Bruits Lungs: Air entry diminished in bilateral lung bases. No crepitation/rhonchi. No hypoxia or tachypnea Cardiovascular: Regular rate, Regular Rhythm, Normal S1, Normal S2, systolic murmur over cardiac apex and LLSB. Abdomen: Bowel Sounds Present, Soft, Non Tender, Non-Distended : No renal angle tenderness. No suprapubic tenderness. Extremities: 2+ pitting ankle edema, Capillary Refill Less than 3 Seconds Skin: No rashes, No breakdown Musculoskeletal: No Tenderness to Palpation of Joints or Extremities Neurological: Cranial nerves II-XII grossly intact, DTR 2+/4 and Symmetrical, Neuro grossly intact Psych/Mental Status: Normal Affect, Appropriate. 08/13/2245<Electronically signed by Tien Varma MD> Cosigner Signature (if applicable): cc: ~* Signed [facility] Work Phone: 1(767) [phone] Varma [facility] August 13, 2022 8:43am Note Date/Time August 13, 2022 8:3 7am [facility] Medical Records Department [address] [place] [address] Discharge Summary 08/13/2234 MR#: [id number] Acct: [id number] Name: EUGENIA MOMIN Rep #:[id number] : 1935 86 From: Tien Mckeon PCP: Dr. Neville Serrano MD Status:ADM I N Location: [place] [address] Providers Date of Admission: 08/11/22 Date of Discharge: 08/13/22 Primary Care Physician: Dr. Neville Serrano MD Reason For Visit: HYPOXIA, CHF EXACERBATION Diagnosis Discharge Diagnosis (1) CHF (congestive heart failure): Status: Acute Code(s): I50.9 - Heart failure, unspecified Plan The patient is an 86 y/o F came to ED for shortness of breath for 2 days.? Patient had some sinus drainage.? History of IBS and had loose stool and took Imodium.? No fever.? She also had chest discomfort in the midsternal region on Friday evening lasted for 15 minutes not associated with nausea diaphoresis or emesis.? She had another episode of midsternal discomfort/tightness and is constant in nature. #1.? Acute on chronic HFpEF probably due to hypertension and valvular heart disease, moderate MR and mild to moderate AI: BNP elevated.? Serial troponins negative.? Magnesium and procalcitonin normal.? TSH 4.5, free T4 normal.? COVID-19 PCR and sputum culture pending.? Urinary antigens are negative.? Rapid SARS-CoV-2 and flu antigen are negative. ? Patient had CT angiogram chest which is individually reviewed.? Does not show? PE but small bilateral pleural effusion in lower lobes with dependent atelectasis and bilateral groundglass opacities. 08/12: Echo shows EF 65% with mild concentric LVH.? LA moderately enlarged.? Milddiffuse mitral valve thickening, 3+ eccentric MR.? Mild to moderate AI.? Overallit is suggestive of acute on chronic HFpEF. 08/13: Leg swelling has improved. Lungs are clear. Patient ready to go home. Discharged on baby aspirin, lisinopril, atorvastatin. Amlodipine discontinued as patient had leg swelling. Heart rate and blood pressure control patient alsohas moderate MR and mild to moderate AI. Follow up with [place] line attendant Dr. Bal in 1 month. #2.? Hypertension: Continue home regimen including atenolol, norvasc, PRN hydralazine. 4: As mentioned above. Norvasc discontinued #3.? Hyperlipidemia: TC 256, LDL 184 HDL 42.? On 40 mg atorvastatin. #4.? Chronic Kidney Disease Stage IIIb: Admission BUN/Cr 14/1.09, baseline renalfunction primarily appears 1.0-1.3.? Estimated creatinine clearance around 31 mm/min #5.? Anxiety and depression: We will continue patient paroxetine regimen. #6.? Hypothyroidism:? continue patient home levothyroxine regimen /: TSH 4.57 slightly elevated in normal range but free T4 normal 1-25. Continue home dose. #7.? Obesity: Weight loss and lifestyle changes encouraged. #8.? DVT Prophylaxis: Lovenox. #9 code CODE status: Patient JAILENE is her 2 daughters 1 of which is present and living will is currently in place. Discussed CODE status at length including difference between FULL code, DNR-CCA and DNR-CC status. Following discussions about the differences in these status, requested Full Code status. Discharge medication reconciliation done. Discharge follow-up instructions completed. Discharge process discussed with the patient and all questions wereanswered to patient's satisfaction. Prescriptions sent to patient's pharmacy Total time spent, exact 35 minutes on discharge meds reconciliation, examination, coordination of care with nurses and ancillary staff, review of imaging and blood test and discussion with the patient on follow-up instructions. Medications at Discharge Home Medications atenolol 50 mg tablet (Tenormin) 50 mg PO DAILY BP 07/20/15 levothyroxine 25 mcg tablet 88 mcg PO DAILY . 07/20/15 paroxetine HCl 40 mg tablet 40 mg PO DAILY . 08/11/22 aspirin 81 mg tablet,delayed release 81 mg PO BREAKFAST #30 tabs 08/13/22 atorvastatin 40 mg tablet 40 mg PO QHS #30 tabs 08/13/22 furosemide 40 mg tablet 40 mg PO DAILY #30 tabs 08/13/22 lisinopril 10 mg tablet 10 mg PO DAILY #30 tabs 08/13/22 spironolactone 25 mg tablet 12.5 mg PO DAILY #30 tabs 08/13/22 Physical Exam Narrative Seen and examined on the day of discharge. On ekg monitor tech sinus rhythm. Heart rate and blood pressure control. Leg swelling has improved. Shortness of breath has resolved. Physical exam General: Alert, Oriented x3, Cooperative HEENT: Atraumatic, PERRLA, EOMI, Normocephalic Oral: No Gingival or Mucosal Lesions/ Ulcerations Neck: Supple, No JVD, Negative Carotid Bruits Lungs: Air entry diminished in bilateral lung bases. No crepitation/rhonchi. No hypoxia or tachypnea Cardiovascular: Regular rate, Regular Rhythm, Normal S1, Normal S2, systolic murmur over cardiac apex and LLSB. Abdomen: Bowel Sounds Present, Soft, Non Tender, Non-Distended : No renal angle tenderness. No suprapubic tenderness. Extremities: ankle edema has resolved, Capillary Refill Less than 3 Seconds Skin: No rashes, No breakdown Musculoskeletal: No Tenderness to Palpation of Joints or Extremities Neurological: Cranial nerves II-XII grossly intact, DTR 2+/4 and Symmetrical, Neuro grossly intact Psych/Mental Status: Normal Affect, Appropriate. Weight / BMI Weight Weight: 195 lb 12.328 oz Body Mass Index (BMI) 34.7 ABG / Lab / Microbiology Data Result Diagrams: 08/12/22 05:15 08/13/22 04:20 Laboratory: Laboratory Results - last 24 hr 08/13/22 04:20: Sodium 138, Potassium 3.3 L, Chloride 107, Carbon Dioxide 26.0, Anion Gap 5, BUN 23 H, Creatinine 1.28 H, Estim Creat Clear Calc 26.10, Est GFR (MDRD) Af Amer 51 L, Est GFR (MDRD) Non-Af 42 L, BUN/Creatinine Ratio 18.0, Glucose 101, Calcium 8.6, Phosphorus 3.3, Magnesium 2.0 Microbiology: Microbiology 08/12/22 01:13 Urine, Clean Catch Legionella Antigen - Final 08/12/22 01:13 Urine, Clean Catch Streptococcus pneumoniae Antigen (M - Final 08/11/22 13:35 Nasal Secretion SARS-CoV-2 & FLU Antigen (Rapid) - Final Radiography Diagnostic Testing: Radiology Impression Echocardiogram 08/11/22 17:06 Interpretation Summary Mild concentric left ventricular hypertrophy. The left ventricular ejection fraction is 65 %. The left atrium is moderately enlarged. Mild diffuse mitral valve thickening. Moderately severe (3+) eccentric mitral valve insufficiency. Mild tricuspid valve insufficiency. Mild-Moderate (1-2+) aortic valve insufficiency. Diastolic function is indeterminate. Ordering Physician: Marina Rogers Referring Physician: Neville Serrano Chi Performed By: Ewa Aceves, KALIE, RVT D/C Instructions Discharge Diet: Low fat / Low cholesterol and 2000 mg Sodium Diet Weight Bearing Status: Weight bearing as tolerated Call your doctor if you observe: Fever of 101 or Higher, Coldness, Increased Pain, Numbness or Tingling, Change in Color, Inability to urinate, Inability to have a bowel movement, Using more than 1 pad per hour, Shortness of breath, Dizziness, Fainting spells, Swelling in the ankles, Chest pain, Prolonged hiccupping, Increased palpitations (irregular heartbeat) and Calf discomfort When: IN 2 WEEKS Meaningful Use Info Meaningful Use Diagnoses (Choose all that apply): CHF CHF JL/ARB ordered at discharge?: Yes Documented LVEF (%): 65 Discharge Plan Admission Admit Date/Time: 08/11/22 16:10 Primary Reason for Your Visit: Acute on chronic HFpEF Attending Provider: Tien Varma Primary Care Provider: Neville Serrano Chi Consulting Providers: Marina Rogers Discharge Orders/Prescriptions Prescriptions: New aspirin 81 mg Tablet,Delayed Release (Dr/Ec) 81 mg PO BREAKFAST Qty: 30 2RF spironolactone 25 mg Tablet 12.5 mg PO DAILY Qty: 30 1RF furosemide 40 mg tablet 40 mg PO DAILY Qty: 30 2RF Rx Instructions: Take an additional 40 mg dose at 5 PM for increased leg swelling or weight gain 5 pounds in 1 week. atorvastatin 40 mg tablet 40 mg PO QHS Qty: 30 2RF lisinopril 10 mg tablet 10 mg PO DAILY Qty: 30 2RF Continued levothyroxine 25 MCG tablet 88 mcg PO DAILY atenolol [Tenormin] 50 MG tablet 50 mg PO DAILY paroxetine HCl 40 mg tablet 40 mg PO DAILY Discontinued amlodipine 5 mg tablet 5 mg PO DAILY Referrals / Follow Up: Jeovanny Bal MD [Med Staff - Active Staff] - Within 1 Month Neville Serrano Chi, MD [Primary Care Provider] - Within 2 Weeks Disposition Disposition (needs filled in before D/C Order can be placed): Home, Self Care Charges/Coding Visit Charges Inpatient E&M: 79133 Disch Hosp >30min 08/13/22 0843 <Electronically signed by Tien Varma MD> Cosigner Signature (if applicable): CC: Dr. Tien Varma MD; Dr. Neville Serrano MD~ Signed [facility] Work Phone: [phone]) 537-426704-11-[address] Varma [facility] August 13, 2022 8:34am Note Date/Time August 13, 2022 8:0 7am [facility] Medical Records Department [facility] [place] [address] Instructions for Home/Discharge Instructions 08/13/22805 MR#: [id number] Acct: [id number] Name: EUGENIA MOMIN Rep #:[id number] : 1935 86 From: Tien Mckeon PCP: Dr. Neville Serrano MD Status:ADM I N Discharge Instructions Diet Discharge Diet: Low fat / Low cholesterol and 2000 mg Sodium Diet Activity Discharge Activity: Return to Normal Activity Weight Bearing Status: Weight bearing as tolerated Dressing / Incision Call your doctor if you observe: Fever of 101 or Higher, Coldness, Increased Pain, Numbness or Tingling, Change in Color, Inability to urinate, Inability to have a bowel movement, Using more than 1 pad per hour, Shortness of breath, Dizziness, Fainting spells, Swelling in the ankles, Chest pain, Prolonged hiccupping, Increased palpitations (irregular heartbeat) and Calf discomfort Follow Up Care When: IN 2 WEEKS Test Results: Test results from this visit will be discussed in further detail at your follow- up appointment, if applicable. Discharge Plan Admission Admit Date/Time: 08/11/22 16:10 Primary Reason for Your Visit: Acute on chronic HFpEF Attending Provider: Tien Varma Primary Care Provider: Neville Serrano Chi Consulting Providers: Marina Rogers Discharge Orders/Prescriptions Prescriptions: New aspirin 81 mg Tablet,Delayed Release (Dr/Ec) 81 mg PO BREAKFAST Qty: 30 2RF spironolactone 25 mg Tablet 12.5 mg PO DAILY Qty: 30 1RF furosemide 40 mg tablet 40 mg PO DAILY Qty: 30 2RF Rx Instructions: Take an additional 40 mg dose at 5 PM for increased leg swelling or weight gain 5 pounds in 1 week. atorvastatin 40 mg tablet 40 mg PO QHS Qty: 30 2RF lisinopril 10 mg tablet 10 mg PO DAILY Qty: 30 2RF Continued levothyroxine 25 MCG tablet 88 mcg PO DAILY atenolol [Tenormin] 50 MG tablet 50 mg PO DAILY paroxetine HCl 40 mg tablet 40 mg PO DAILY Discontinued amlodipine 5 mg tablet 5 mg PO DAILY Referrals / Follow Up: Jeovanny Bal MD [Med Staff - Active Staff] - Within 1 Month Neville Serrano Chi, MD [Primary Care Provider] - Within 2 Weeks Disposition Disposition (needs filled in before D/C Order can be placed): Home, Self Care 08/13/22 0834<Electronically signed by Tien Varma MD>Tien Varma MD CC: Dr. Marina Rogers MD; Dr. Neville Serrano MD ~ Signed [facility] Work Phone: [phone] 166-948204-09-2023 History and physical note Author Dr. Rogers [facility] August 11, 2022 5:23pm Note Date/Time August 11, 2022 4:14 pm [facility] Medical Records Department [address] [place] [address] History & Physical Exam 08/11/22 1602 MR#: [id number] Acct: [id number] Name: EUGENIA MOMIN Rep #:[id number] : 1935 86 From: Marina Rogers MD PCP: Dr. Neville Serrano MD Status:ADM I N Location: [place] [address] HPI - General General Date of Admission: 08/11/22 Date of Service: 08/11/22 Chief Complaint: Dyspnea, chest pain. HPI Narrative The patient is an 86 y/o F w/ PMHx: Anxiety and Depression, Obesity, Hypothyroidism, HTN, HLD, CKD stage III unclear subtype who presents to the [facility] ED on 08/11/22 with history of onset of dyspnea progressively worsening over the last 48 hours came on suddenly as she was getting into bed with no recent fever,chills, cough although she does report some recent sinus drainage as well as episode of loose stool with self administration of Imodium but she does have underlying IBS with no specific ill contacts prompting eventual ED evaluation. She also notes recent chest discomfort with initially an episode on Friday in the evening reportedly had gone to bed and awoke to use the restroom with onset of significant discomfort midsternal region and underneath the breasts describedas tightness rated 8 out of 10 in severity with no specific nausea, emesis or diaphoresis but did have dyspnea subsiding after 15 minutes however she is continued to have it in the midsternal region and underneath her breasts again as a tightness ranging from 4-6 but has been constant and unchanged since then. She does report that she has had significant sinus issues with marked sinus drainage. She does admit to bilateral lower extremity ankle swelling with marksfrom her socks which is abnormal from her over the last several days as well as orthopnea. Work-up in the ED included T98.4, heart rate 76, BP initially 166/66with most recent repeat 158/80, respiratory rate initially 89% on room air in triage with improvement to 95% on room air with interventions, with ambulation however patient decreased to 87% improving with rest, CBC with WC 9.6, 113.5, platelet 243 without marked shift, D-dimer 0.88, BMP with BUN/creatinine 14/1.09, glucose 110, troponin 23, BNP 350, chest x-ray with no acute cardiopulmonary findings, CTPA with no demonstrated pulmonary embolism or arterial dissection, bilateral pleural effusions associated with minimal dependent consolidation within the lower lobes, bilateral ground-glass opacitiespossibly secondary to edema and/or infectious process, borderline enlarged lymphnodes possibly reactive, atherosclerosis, degenerative changes of the thoracic spine, EKG with sinus rhythm with nonspecific ST changes with subtle [address] depression in the lateral leads although similar appearing to prior. In the ED patient administered Lasix 40 mg IV x1. PFSH Medical History Anxiety and depression CKD (chronic kidney disease), stage III HLD (hyperlipidemia) HTN (hypertension) Hypothyroidism Obesity Home Medications atenolol 50 mg tablet (Tenormin) 50 mg PO DAILY 07/20/15 [History Last Taken Unknown] levothyroxine 25 mcg tablet 88 mcg PO DAILY 07/20/15 [History Last Taken Unknown] amlodipine 5 mg tablet 5 mg PO DAILY 08/11/22 [History Last Taken Unknown] paroxetine HCl 40 mg tablet 40 mg PO DAILY 08/11/22 [History Last Taken Unknown] Allergy/AdvReac Type Severity Reaction Status Date / Time No Known Allergies Allergy Verified 12/02/19 07:10 Family History Mother Heart disease Hypertension CHF (congestive heart failure) Father Heart disease Hypertension CHF (congestive heart failure) CAD (coronary artery disease) Myocardial infarction Surgical History History of carpal tunnel release History of tonsillectomy and adenoidectomy Social History household members: none Smoking Status: Never smoker alcohol intake: never substance use type: does not use ROS ROS Narrative Admission Review of Systems: CONSTITUTIONAL: No weight loss, fever, chills, + weakness or fatigue. HEENT: + Chronic sinus drainage. Eyes: No visual loss, blurred vision, double vision or yellow sclerae. Ears, Nose, Throat: No hearing loss, sneezing, congestion, runny nose or sore throat. SKIN: No rash or itching, lesions, wounds. CARDIOVASCULAR: + chest pain, chest pressure or chest discomfort, orthopnea, edema, No palpitations, syncopal events. RESPIRATORY: + shortness of breath, No cough or sputum, wheezing, hemoptysis. GASTROINTESTINAL: No anorexia, nausea, vomiting or diarrhea, abdominal pain, melena, BRBPR. GENITOURINARY: No dysuria, frequency, urgency or retention. NEUROLOGICAL: No headache, dizziness, syncope, paralysis, ataxia, numbness or tingling in the extremities, focal weakness, change in bowel or bladder control,seizure. MUSCULOSKELETAL: + muscle, back pain, joint pain or stiffness. HEMATOLOGIC: No anemia, bleeding or bruising. LYMPHATICS: No enlarged nodes. No history of splenectomy. PSYCHIATRIC: + history of depression or anxiety. ENDOCRINOLOGIC: No reports of sweating, cold or heat intolerance. No polyuria orpolydipsia. ALLERGIES: + rhinitis. Vital Signs Vital Signs Vital Signs: 08/11/22 13:12 08/11/22 13:12 08/11/22 13:42 Temperature 98.4 F 98.4 F Temperature Source Temporal Temporal Pulse Rate 76 76 Respiratory Rate 18 18 Respiratory Effort Normal Non-Labored Respiratory Depth Normal Respiratory Pattern Normal Blood Pressure 166/66 H 166/66 H Blood Pressure Mean 99 99 Pulse Ox 89 94 Oxygen Delivery Method Room Air Room Air Room Air 08/11/22 14:12 Temperature Temperature Source Pulse Rate 69 Respiratory Rate 18 Respiratory Effort Respiratory Depth Respiratory Pattern Blood Pressure 156/80 H Blood Pressure Mean 105 Pulse Ox 95 Oxygen Delivery Method Room Air Weight Weight: 216 lb 12.8 oz Body Mass Index (BMI) 38.4 Physical Exam Narrative Physical Examination: General: Awake, alert, oriented x 3 and cooperative, seated upright in the ED bed in no apparent distress, report still having chest discomfort, 6 out of 10 but this has been constant for several days. Skin: Normal color, normal turgor, no icterus, no cyanosis. HEENT: AT/NC, EOMI, PERRLA, MMM, no carotid bruits, unable to discern notable JVD secondary to thickened neck. Lungs: Significantly diminished, greater bases, despite CTPA findings no marked rales nor any rhonchi or wheezing. Heart: Regular rate and rhythm; no gallop, rub audible. Abdomen: Soft, obese, NTTP, ND, distant normal BS, no HSM. Extremities: No cyanosis, no clubbing, peripheral ankle mild pitting edema. Neurological: Patient awake, alert, oriented as noted, cognitive function intact; pupils equally reactive to light and accommodation, cranial nerves II-XII grossly normal, moving all 4 extremities, no focal deficits, strength moderately global decrease secondary to acute presentation Psychiatric: Affect appears mildly fatigued otherwise normal, no acute evidence of depressive or anxiety feelings but does have underlying history. Results Lab / Micro Data Result Diagrams: 08/11/22 13:35 08/11/22 13:35 Labs: Laboratory Results - last 24 hr 08/11/22 13:35: WBC 9.6, RBC 4.67, Hgb 13.5, Hct 41.4, MCV 88.7, MCH 28.9, MCHC 32.6, RDW Std Deviation 41.2, RDW Coeff of Danelle 12.6, Plt Count 243, MPV 10.6, Immature Gran % (Auto) 0.200, Neut % (Auto) 70.9 H, Lymph % (Auto) 20.9, Adams % (Auto) 6.6, Eos % (Auto) 0.8, Baso % (Auto) 0.6, Absolute Neuts (auto) 6.8, Absolute Lymphs (auto) 2.01, Nucleated RBC % 0 08/11/22 13:35: D-Dimer Quant (PE/DVT) 0.88 H* 08/11/22 13:35: Sodium 137, Potassium 4.0, Chloride 107, Carbon Dioxide 23.0, Anion Gap 7, BUN 14, Creatinine 1.09 H, Estim Creat Clear Calc 30.65, Est GFR (MDRD) Af Amer 61, Est GFR (MDRD) Non-Af 51 L, BUN/Creatinine Ratio 12.8, Glucose 110 H, Calcium 9.0, Troponin I High Sens 23 08/11/22 13:35: B-Natriuretic Peptide 350.0 H Micro: Microbiology 08/11/22 13:35 Nasal Secretion SARS-CoV-2 & FLU Antigen (Rapid) - Final Radiology Impression Chest X-Ray 08/11/22 13:22 IMPRESSION: No acute pulmonary process Electronically Signed: Yair Rousseau MD at 14:06 EDT , Chest CTA 08/11/22 14:13 IMPRESSION: No demonstrated pulmonary embolism or arterial dissection. Bilateral pleural effusions associated with minimal dependent consolidation within the lower lobes. Bilateral groundglass opacities, a nonspecific finding, may be secondary to edema and/or an infectious process. Borderline enlarged lymph nodes, may be reactive. Atherosclerosis. Degenerative changes of the thoracic spine. Electronically Signed: Latricia Aceves MD at 15:29 EDT , Assessment & Plan Assessment/Plan (1) CHF (congestive heart failure): PLAN: Plan The patient is an 86 y/o F w/ PMHx: Anxiety and Depression, Obesity, Hypothyroidism, HTN, HLD, CKD stage III unclear subtype who presents to the [facility] ED on 08/11/22 with history of onset of dyspnea progressively worsening over the last 48 hours came on suddenly as she was getting into bed with no recent fever,chills, cough although she does report some recent sinus drainage as well as episode of loose stool with self administration of Imodium but she does have underlying IBS with no specific ill contacts prompting eventual ED evaluation. #1. Dyspnea with associated hypoxia, concern for possible underlying CHF, unclear type versus possible atypical viral pneumonia w/ concurrent chest pain: Patient administered IV lasix in the ED, will admit to PCU, maintain on cardiac telemetry obtain cardiac enzyme series, obtain serial EKGs, continue IV lasix diuresis, monitor I/Os, continue medical therapy, obtain TSH and magnesium level. Will obtain ECHO. Will additionally obtain respiratory viral panel, COVIDPCR, sputum Cx, antigens and procalcitonin to be cautious. Once evaluation CHF complete given chest discomfort pending enzyme trending may need to further consider stress testing. #2. Hypertension: Continue home regimen including atenolol, norvasc, IV Lasix with work-up as noted #1, PRN hydralazine. #3. Hyperlipidemia: Not on regimen, add low to moderate dose given agent, FLP in a.m. especially given #1. #4. Chronic Kidney Disease Stage III, unclear sob: Admission BUN/Cr 14/1.09, baseline renal function primarily appears 1.0-1.3 although did have elevation 06/04/2022 1.75 but suspect this acute, will repeat CBC in a.m. #5. Anxiety and depression: We will continue patient paroxetine regimen. #6. Hypothyroidism: We will continue patient home levothyroxine regimen, TSH and free T4 pending. #7. Obesity: Weight loss and lifestyle changes encouraged. #8. DVT Prophylaxis: Lovenox. #9 code CODE status: Patient JAILENE is her 2 daughters 1 of which is present and living will is currently in place. Discussed CODE status at length including difference between FULL code, DNR-CCA and DNR-CC status. Following discussions about the differences in these status, requested Full Code status. Advanced CarePlanning Face to Face Time: 16 minutes. Admission Evaluation Time spent evaluating chart, patient history, patient evaluation, care planning and discussion with specialists: 75 minutes. Charges/Coding Visit Charges Inpatient E&M: 35673 Init Hosp L3 Procedures Hospitalists Procedures: 46188 Advncd Care Plan 30 Min 08/11/22 1723 <Electronically signed by Marina Rogers MD> Cosigner Signature (if applicable): CC: Dr. Marina Rogers MD; Dr. Neville Serrano MD~ Signed [facility] Work Phone: [phone]) 673-863904-09-[address] Amin [facility] August 11, 2022 4:22pm Note Date/Time August 11, 2022 1:25 pm [facility] Medical Records Department [address] [place] [address] Emergency Department Summary 08/11/22 MR#: [id number] Acct: [id number] Name: EUGENIA MOMIN Rep #:[id number] : 1935 86 From: Latoya Amin DO PCP: Dr. Neville Serrano MD Status:ADM I N Location: [place] [address] HPI History of Present Illness Chief Complaint: Shortness of Breath Detail of Chief Complaint: Shortness of breath Informant: patient Narrative Narrative: Patient presents with shortness of breath that started 2 nights ago. Patient states that it came on suddenly when she was getting into bed. Denies any chestpain. Denies fever or cough. She had some sinus drainage. She had diarrhea yesterday and today so she took some Imodium. She has history of IBS. Denies sick contacts otherwise. Denies recent travel or surgery. No history of COPD or emphysema. PFSH PFSH Home Medications atenolol 50 mg tablet (Tenormin) 50 mg PO DAILY 07/20/15 [History Last Taken Unknown] levothyroxine 25 mcg tablet 88 mcg PO DAILY 07/20/15 [History Last Taken Unknown] amlodipine 5 mg tablet 5 mg PO DAILY 08/11/22 [History Last Taken Unknown] paroxetine HCl 40 mg tablet 40 mg PO DAILY 08/11/22 [History Last Taken Unknown] Allergy/AdvReac Type Severity Reaction Status Date / Time No Known Allergies Allergy Verified 12/02/19 07:10 Social History Smoking Status: Never smoker ROS ROS ED Review of Systems ROS Unobtainable: other Constitutional Constitutional ED: Reports lethargy; Denies chills, fever(s), sweats or weight loss Eyes Eyes: Denies blurry vision, change in vision or diplopia ENT ENT ED: Reports other Details: Sinus drainage ; Denies rhinorrhea or sore throat Cardiovascular Cardiovascular: Denies chest pain, orthopnea or racing heartbeat Respiratory/Chest Respiratory/Chest: Reports dyspnea and dyspnea on exertion; Denies cough, orthopnea or sputum Gastrointestinal Gastrointestinal: Reports diarrhea; Denies abdominal pain, nausea or vomiting Genitourinary Genitourinary ED: Denies dysuria, hematuria or urinary frequency Musculoskeletal Musculoskeletal: Denies arthralgias, back pain, myalgias or neck pain Integumentary Denies abscess, Abrasions or rash Neurologic Neurologic: Denies headache(s) or weakness Psychiatric Psychiatric: Denies anxiety, depression or suicidal thoughts Endocrine Endocrinology: Denies polydipsia, polyphagia or polyuria Hematologic/Lymphatic Hematologic/Lymphatic: Denies easy bleeding, easy bruising or lymphadenopathy Allergic/Immunologic Allergic/Immunologic ED: Denies mouth swelling, tongue swelling or urticaria EXAM Physical Exam Const Vital Signs: 08/11/22 13:12 08/11/22 13:12 08/11/22 13:42 Temperature 98.4 F 98.4 F Temperature Source Temporal Temporal Pulse Rate 76 76 Respiratory Rate 18 18 Respiratory Effort Normal Non-Labored Respiratory Depth Normal Respiratory Pattern Normal Blood Pressure 166/66 H 166/66 H Blood Pressure Mean 99 99 Pulse Ox 89 94 Oxygen Delivery Method Room Air Room Air Room Air 08/11/22 14:12 Temperature Temperature Source Pulse Rate 69 Respiratory Rate 18 Respiratory Effort Respiratory Depth Respiratory Pattern Blood Pressure 156/80 H Blood Pressure Mean 105 Pulse Ox 95 Oxygen Delivery Method Room Air Positive well nourished and well developed General Appearance ED: well developed and NAD HEENT Reports TM's clear and moist mucous membranes normocephalic and atraumatic; Negative for trauma or tenderness Tympanic Membrane ED: Yes TM's clear Eyes PERRL and EOMs intact bilaterally General Eye ED: Negative for pale conjunctiva or scleral icterus Neck no lymphadenopathy, supple and no JVD General: Negative for tenderness Chest Wall inspection of chest normal and palpation of chest normal Chest: Negative for tenderness Resp normal respiratory effort and clear to auscultation bilaterally Effort and Inspection: Negative for respiratory distress or pain with movement Auscultation: Negative for rhonchi, wheezes or diminished lung sounds Cardio regular rate, regular rhythm, S1 normal heart sound, S2 normal heart sound and no murmurs Peripheral Pulses: pulses 2+ throughout GI normal to inspection, nondistended, normoactive bowel sounds, soft to palpation,non-tender, non-distended and no masses Back/Spine no CVA tenderness and no thoracic nor lumbar tenderness Extremity normal to inspection General Extremety ED: Negative for edema General Extremity: Negative for edema Neuro oriented x3, CN's II-XII intact bilaterally, no sensory deficits noted and gait normal Sensorium / Orientation: awake, alert, oriented to person, oriented to place andoriented to time Motor Exam: strength 5/5 throughout and strength abnormal Psych mental status grossly normal Skin no rashes or lesions noted and no wounds MDM MDM MDM Narrative Medical decision making narrative: Presents with dyspnea and a discomfort in the chest. Symptoms x2 days. She feels short of breath with activity and exertion. The chest discomfort does notradiate. She denies cough or recent illness. Patient had an EKG on arrival that showed a sinus rhythm with a ventricular rate of 76 bpm with nonspecific STchanges. CBC with it was unremarkable. Chemistries unremarkable. Troponin wasnormal at 23. D-dimer was 0.88. BNP was 350. CTA of the chest showed bilateral pleural effusions and some groundglass opacities. Influenza and COVIDrapid test was negative. Patient was given Lasix 40 mg IV. She does have some leg edema. Case will be discussed with hospitalist to evaluate patient for admission for chest pain and CHF. Patient was ambulated in the department with pulse ox and her O2 sat dropped to 87% on room air. Lab Data Labs: Laboratory Results - last 24 hr 08/11/22 08/11/22 08/11/22 13:35 13:35 13:35 WBC 9.6 RBC 4.67 Hgb 13.5 Hct 41.4 MCV 88.7 MCH 28.9 MCHC 32.6 RDW Std Deviation 41.2 RDW Coeff of Danelle 12.6 Plt Count 243 MPV 10.6 Immature Gran % (Auto) 0.200 Neut % (Auto) 70.9 H Lymph % (Auto) 20.9 Adams % (Auto) 6.6 Eos % (Auto) 0.8 Baso % (Auto) 0.6 Absolute Neuts (auto) 6.8 Absolute Lymphs (auto) 2.01 Nucleated RBC % 0 D-Dimer Quant (PE/DVT) 0.88 H* Sodium 137 Potassium 4.0 Chloride 107 Carbon Dioxide 23.0 Anion Gap 7 BUN 14 Creatinine 1.09 H Estim Creat Clear Calc 30.65 Est GFR (MDRD) Af Amer 61 Est GFR (MDRD) Non-Af 51 L BUN/Creatinine Ratio 12.8 Glucose 110 H Calcium 9.0 Troponin I High Sens 23 B-Natriuretic Peptide 08/11/22 13:35 WBC RBC Hgb Hct MCV MCH MCHC RDW Std Deviation RDW Coeff of Danelle Plt Count MPV Immature Gran % (Auto) Neut % (Auto) Lymph % (Auto) Adams % (Auto) Eos % (Auto) Baso % (Auto) Absolute Neuts (auto) Absolute Lymphs (auto) Nucleated RBC % D-Dimer Quant (PE/DVT) Sodium Potassium Chloride Carbon Dioxide Anion Gap BUN Creatinine Estim Creat Clear Calc Est GFR (MDRD) Af Amer Est GFR (MDRD) Non-Af BUN/Creatinine Ratio Glucose Calcium Troponin I High Sens B-Natriuretic Peptide 350.0 H Radiography Diagnostic Testing: Clinical Impression(s) from Imaging Studies Chest X-Ray 08/11/22 13:22 IMPRESSION: No acute pulmonary process Electronically Signed: Yair Rousseau MD at 14:06 EDT , Chest CTA 08/11/22 14:13 IMPRESSION: No demonstrated pulmonary embolism or arterial dissection. Bilateral pleural effusions associated with minimal dependent consolidation within the lower lobes. Bilateral groundglass opacities, a nonspecific finding, may be secondary to edema and/or an infectious process. Borderline enlarged lymph nodes, may be reactive. Atherosclerosis. Degenerative changes of the thoracic spine. Electronically Signed: Latricia Aceves MD at 15:29 EDT , EKG Initial EKG: Attestation: I personally reviewed and interpreted this EKG as follows: Comments: Sinus rhythm with a rate of [address] changes with subtle [address] depression noted lateral leads Discharge Plan Triage Chief Complaint: Shortness of Breath ED Provider: Latoya Amin Dx/Rx/DC Orders Clinical Impression: Chest pain, CHF (congestive heart failure), Hypoxemia Prescriptions: No Action levothyroxine 25 MCG tablet 88 mcg PO DAILY atenolol [Tenormin] 50 MG tablet 50 mg PO DAILY amlodipine 5 mg tablet 5 mg PO DAILY paroxetine HCl 40 mg tablet 40 mg PO DAILY Primary Care Provider: Neville Serrano Chi Referrals: Neville Serrano Chi, MD [Primary Care Provider] - Disposition Disposition: Acute Care Hospital [facility] What to do if you have Problems For any increased pain, shortness of breath, bleeding, nausea or vomiting, chestpain, or any unexpected problems, contact your Primary Care Provider. Call [facility] ([phone]) or report to the closest Emergency Room. Call 911 if necessary. 08/11/22 1622 <Electronically signed by Latoya Amin DO> Cosigner Signature (if applicable): CC: Dr. Neville Serrano MD ~ Signed [facility] Work Phone: Evaluation noteNo assessment information available [facility] Work Phone: Evaluation note* Diagnosis Onset Date Resolution Status Chest pain acute CHF (congestive heart failure) acute Hypoxemia acute [facility] Work Phone: evaluation note* Diagnosis Onset Date Resolution Status CHF (congestive heart failure) chronic Hypoxemia chronic Chest pain resolved HTN (hypertension), benign a cute Valvular heart disease acute CHF (congestive heart failure) chronic [facility] Work Phone: evaluation note* Diagnosis Onset Date Resolution Status HTN (hypertension), benign a cute Non-ST elevated myocardial infarction acute CKD (chronic kidney disease), stage III chronic HLD (hyperlipidemia) chronic Hypothyroidism chronic [facility] Work Phone: evaluation note* Diagnosis Onset Date Resolution Status HTN (hypertension), benign a cute Mitral regurgitation acute Non-ST elevated myocardial infarction acute CKD (chronic kidney disease), stage III chronic HLD (hyperlipidemia) chronic Hypothyroidism chronic [facility] Work Phone: Evaluation note* Diagnosis Onset Date Resolution Status HTN (hypertension), benign a cute Mitral regurgitation acute Non-ST elevated myocardial infarction acute CKD (chronic kidney disease), stage III chronic HLD (hyperlipidemia) chronic Hypothyroidism chronic Chest pain acute Elevated troponin I level ac noe Stented coronary artery March 03, 2023 acute CKD (chronic kidney disease), stage III chronic [facility] Work Phone: Evaluation note* Diagnosis Onset Date Resolution Status HTN (hypertension), benign a cute Mitral regurgitation acute Non-ST elevated myocardial infarction acute CKD (chronic kidney disease), stage III chronic HLD (hyperlipidemia) chronic Hypothyroidism chronic Chest pain acute Elevated troponin I level ac noe Stented coronary artery March 03, 2023 acute CHF (congestive heart failure) chronic CKD (chronic kidney disease), stage III chronic [facility] Work Phone: Evaluation note* Diagnosis Onset Date Resolution Status HTN (hypertension), benign a cute CKD (chronic kidney disease), stage III chronic HLD (hyperlipidemia) chronic Hypothyroidism chronic Mitral regurgitation chronic Non-ST elevated myocardial infarction resolved Stented coronary artery March 03, 2023 acute CHF (congestive heart failure) chronic CKD (chronic kidney disease), stage III chronic Chest pain resolved Elevated troponin I level re solved HTN (hypertension), benign a cute Stented coronary artery March 03, 2023 acute HLD (hyperlipidemia) chronic Mitral regurgitation chronic [facility] Work Phone: Reason for referral (narrative)No reason for referral information availableWFort [facility] Work Phone: Chief Complaint and Reason for Visit Chief Complaint LABWORK Chief Complaint CKD 3 Chief Complaint CKD 3 HYPOXIA, CHF EXACERBATION HYPOXIA, CHF EXACERBATION HYPOXIA, CHF EXACERBATION Reason for Visit Chest pain CHF (congestive heart failure) Hypoxemia Chief Complaint CKD 3 HYPOXIA, CHF EXACERBATION HYPOXIA, CHF EXACERBATION HYPOXIA, CHF EXACERBATION CHF (SELF) chf chf Reason for Visit CHF (congestive hear t failure) Hypoxemia Chest pain HTN (hypertension), benign Valvular heart disease CHF (congestive heart failure) Chief Complaint HYPOXIA, CHF EXACERB ATION HYPOXIA, CHF EXACERBATION HYPOXIA, CHF EXACERBATION CHF (SELF) chf chf Reason for Visit CHF (congestive hear t failure) Hypoxemia Chest pain HTN (hypertension), benign Valvular heart disease CHF (congestive heart failure) Chief Complaint NSTEMI Reason for Visit HTN (hypertension), benign Non-ST elevated myocardial infarction CKD (chronic kidney disease), stage III HLD (hyperlipidemia) Hypothyroidism Chief Complaint NSTEMI NSTEMI NSTEMI NSTEMI NSTEMI NSTEMI NSTEMI NSTEMI NSTEMI Reason for Visit HTN (hypertension), benign Mitral regurgitation Non-ST elevated myocardial infarction CKD (chronic kidney disease), stage III HLD (hyperlipidemia) Hypothyroidism Chief Complaint NSTEMI NSTEMI NSTEMI NSTEMI NSTEMI NSTEMI NSTEMI NSTEMI NSTEMI CP CHEST PAIN Reason for Visit HTN (hypertension), benign Mitral regurgitation Non-ST elevated myocardial infarction CKD (chronic kidney disease), stage III HLD (hyperlipidemia) Hypothyroidism Chest pain Elevated troponin I level Stented coronary artery CKD (chronic kidney disease), stage III Chief Complaint NSTEMI NSTEMI NSTEMI NSTEMI NSTEMI NSTEMI NSTEMI NSTEMI NSTEMI CP CHEST PAIN CHEST PAIN CHEST PAIN Reason for Visit HTN (hypertension), benign Mitral regurgitation Non-ST elevated myocardial infarction CKD (chronic kidney disease), stage III HLD (hyperlipidemia) Hypothyroidism Chest pain Elevated troponin I level Stented coronary artery CHF (congestive heart failure) CKD (chronic kidney disease), stage III Chief Complaint NSTEMI NSTEMI NSTEMI NSTEMI NSTEMI NSTEMI NSTEMI AM EKG NSTEMI NSTEMI CP CHEST PAIN CHEST PAIN CHEST PAIN S/P [facility] 03/04 NSTEMI Reason for Visit HTN (hypertension), benign CKD (chronic kidney disease), stage III HLD (hyperlipidemia) Hypothyroidism Mitral regurgitation Non-ST elevated myocardial infarction Stented coronary artery CHF (congestive heart failure) CKD (chronic kidney disease), stage III Chest pain Elevated troponin I level HTN (hypertension), benign Stented coronary artery HLD (hyperlipidemia) Mitral regurgitation Chief Complaint 3 M FU MURMUR Reason for Visit HTN (hypertension), benign Stented coronary artery HLD (hyperlipidemia) Mitral regurgitation Chief Complaint 3 M FU MURMUR n/v Reason for Visit HTN (hypertension), benign Stented coronary artery HLD (hyperlipidemia) Mitral regurgitation Chief Complaint Admit Date SOB, edema April 25, 2024 6:13am CHF April 25, 2024 6:31am LLE PAIN April 26, 2024 10:40am Congestive heart failure April 26, 2024 2:04pm Reason for Visit Admit Date CKD (chronic kidney disease), stage III April 25, 2024 6:31am Hypoxemia April 25, 2024 6:31am Arteriosclerotic coronary artery disease April 25, 2024 6:31am CHF (congestive heart failure) April 25, 2024 6:31am Chief Complaint Admit Date 6 M FU February 22, 2025 3 :03pm Reason for Visit Admit Date HTN (hypertension), benign February 22, 2025 3:03pm Stented coronary artery February 22 3:03pm HLD (hyperlipidemia) February 22, 2025 3:03pm Mitral regurgitation February 22, 2025 3:03pm Advance Directives Advance Directive Response Recorded Date/ Time Living Will No December 02, 2019 7:22am Power of Hand Profiler No Mariama 30[address], 202 0 7:22am Advance Directive Response Recorded Date/ Time Living Will No December 02, 2019 6:22am Power of Hand Profiler No December 01 6:22am Advance Directive Response Recorded Date/ Time Name of Medical Power of Hand Profiler helen Pickard August 11, 2022 5:27pm Living Will Yes August 11, 2022 5:27pm Power of Hand Profiler Yes August 11 5:27pm Advance Directive Response Recorded Date/ Time Living Will No February 28 2:37pm Power of Hand Profiler No February 28, 2023 2:37pm Advance Directive Response Recorded Date/ Time Name of Medical Power of Hand Profiler SARAH WADDELL March 07, 2023 4:35am Living Will Yes March 07 4:35am Power of Hand Profiler Yes March 07, 2023 4:35am Advance Directive Response Recorded Date/ Time Name of Medical Power of Hand Profiler SARAH WADDELL March 07, 2023 8:40am Living Will Yes March 07 8:40am Power of Hand Profiler Yes March 07, 2023 8:40am Advance Directive Response Recorded Date/ Time Name of Medical Power of Hand Profiler SARAH WADDELL March 07, 2023 7:40am Living Will Yes March 07 7:40am Power of Hand Profiler Yes March 07, 2023 7:40am Advance Directive Response Recorded Date/ Time Living Will Yes March 07 8:40am Power of Hand Profiler Yes March 07, 2023 8:40am Advance Directive Response Recorded Date/ Time Living Will No August 13, 2023 4:06am Power of Hand Profiler No August 12 4:06am Advance Directive Response Recorded Date/ Time Living Will Yes April 25 2 024 9:14am Power of Hand Profiler Yes April 25, 2024 9:14am Name of Medical Power of Hand Profiler Sarah Waddell April 25, 2024 9:14am Family History Relationship Condition Age at Onset Recorded Date/T hilda mother Cardiac disease Unknown Hypertension Unknown Congestive heart failure Unknown father Cardiac disease Unknown Coronary artery disease Unknown Myocardial infarction Unknown Summary Purpose Additional Source Comments Goals (unrecognized section and content) Goals may be documented in a n alternate sectionGoals may be documented in an alternate sectionGoals may be documented in an alternate sectionGoals may be documented in an alternate sectionGoals may be documented in an alternate sectionGoals may be documented in an alternate sectionGoals may be documented in an alternate sectionGoals may be documented in an alternate section Care Teams (unrecognized sec tion and content) Team Status: Active Member Role Status Dates Dr. Neville Serrano MD Family Provider Active Dr. Neville Serrano MD Primary Care Provider Active Team Status: Inactive Member Role Status Dates Dr. Neville Serrano MD Primary Care Provider Active Neville Serrano MD Attending Provider Active Team Status: Inactive Member Role Status Dates Dr. Neville Serrano MD Primary Care Provider Active Dr. Estrellita Mcpherson DO Attending Provider, Referring P sharon Active Team Status: Active Member Role Status Dates Dr. Neville Serrano MD Primary Care Provider Active Dr. Georges Mcdonald MD Attending Provider Active Team Status: Active Member Role Status Dates Dr. Neville Serrano MD Primary Care Provider Active Dr. Latoya Amin DO Emergency Provider Active Dr. Marina Rogers MD Admit Provider, Other Provider Active Dr. Tien Varma MD Attending Provider, Other Provi steffi Active Team Status: Inactive Member Role Status Dates Dr. Neville Serrano MD Primary Care Provider Active Neville PERALTA MD Attending Provider Active Team Status: Inactive Member Role Status Dates Dr. Neville Serrano MD Primary Care Provider Active Dr. Latoya Amin DO Emergency Provider Active Dr. Marina Rogers MD Admit Provider, Other Provider Active Dr. Tien Varma MD Attending Provider Active Team Status: Inactive Member Role Status Dates Dr. Neville Serrano MD Primary Care Provider, Referring Provider Active Dr. Jeovanny Bal MD Attending Provider Active Team Status: Active Member Role Status Dates Dr. Neville Serrano MD Primary Care Provider Active Dr. Jeovanny Bal MD Attending Provider, Referring Provider, Other Provider Active Team Status: Inactive Member Role Status Dates Dr. Neville Serrano MD Primary Care Provider Active Dr. Jeovanny Bal MD Attending Provider, Referring Pro vider Active Team Status: Inactive Member Role Status Dates Dr. Neville Serrano MD Primary Care Provider, Attending Provider Active Team Status: Active Member Role Status Dates Dr. Neville Serrano MD Primary Care Provider Active Dr. Alphonso Thomas MD Emergency Provider Active Dr. Antwon Peguero MD Admit Provider, Attending Provider Active Team Status: Active Member Role Status Dates Dr. Neville Serrano MD Primary Care Provider Active Dr. Alphonso Thomas MD Emergency Provider Active Dr. Antwon Peguero MD Admit Provi steffi, Attending Provider, Other Provider Active Dr. Georges Mcdonald MD Other Provider Active Team Status: Active Member Role Status Dates Dr. Neville Serrano MD Primary Care Provider Active Dr. Alphonso Thomas MD Emergency Provider Active Dr. Antwon Peguero MD Admit Provider, Other Pro vider Active Dr. Georges Mcdonald MD Attending Provider, Other Provid er Active Team Status: Active Member Role Status Dates Dr. Neville Serrano MD Primary Care Provider Active Dr. Alphonso Thomas MD Emergency Provider Active Dr. Antwon Peguero MD Admit Provider, Other Pro vider Active Dr. Georges Mcdonald MD Other Provider Active Dr. Jeovanny Bal MD Attending Provider Active Team Status: Active Member Role Status Dates Dr. Neville Serrano MD Primary Care Provider Active Dr. Alphonso Thomas MD Emergency Provider Active Dr. Antwon Peguero MD Admit Provider, Other Pro vider Active Dr. Georges Mcdonald MD Other Provider Active Dr. John Pickett MD Other Provider Active Dr. Jeovanny Bal MD Attending Provider Active Team Status: Active Member Role Status Dates Dr. Neivlle Serrano MD Primary Care Provider Active Dr. Alphonso Thomas MD Emergency Provider Active Dr. Antwon Peguero MD Admit Provider, Other Pro vider Active Dr. Georges Mcdonald MD Other Provider Active Dr. John Pickett MD Attending Provider, Other Provid er Active Team Status: Inactive Member Role Status Dates Dr. Neville Serrano MD Primary Care Provider Active Dr. Alphonso Thomas MD Emergency Provider Active Dr. Antwon Peguero MD Admit Provider, Other Pro vider Active Dr. Georges Mcdonald MD Other Provider Active Dr. John Pickett MD Attending Provider Active Team Status: Active Member Role Status Dates Dr. Neville Serrano MD Primary Care Provider Active Dr. Tomer Irvin MD Emergency Provider Active Dr. Marina Rogers MD Attending Provider Active Team Status: Active Member Role Status Dates Dr. Neville Serrano MD Primary Care Provider Active Dr. Tomer Irvni MD Emergency Provider Active Dr. Marina Rogers MD Admit Provider, Other Provider Active Dr. John Pickett MD Attending Provider Active Team Status: Active Member Role Status Dates Dr. Neville Serrano MD Primary Care Provider Active Dr. Tomer Irvin MD Emergency Provider Active Dr. Marina Rogers MD Admit Provider, Other Provider Active Dr. John Pickett MD Other Provider Active Dr. Connie Cortez MD Attending Provider, Othe r Provider Active Team Status: Active Member Role Status Dates Dr. Neville Serrano MD Primary Care Provider Active Dr. Tomer Irvin MD Emergency Provider Active Dr. Marina Rogers MD Admit Provider, Other Provider Active Dr. Connie Cortez MD Other Provider Active Dr. John Pickett MD Attending Provider, Other Provid er Active Team Status: Inactive Member Role Status Dates Dr. Neville Serrano MD Primary Care Provider Active Dr. Tomer Irvin MD Emergency Provider Active Dr. Marina Rogers MD Admit Provider, Other Provider Active Dr. Connie Cortez MD Other Provider Active Dr. John Pickett MD Attending Provider Active Team Status: Inactive Member Role Status Dates Dr. Neville Serrano MD Primary Care Provider, Referring Provider Active Cathy HUSTON PA Attending Provider Active Team Status: Active Member Role Status Dates Dr. Neville Serrano MD Primary Care Provider Active Dr. Connie Cortez MD Attending Provider Activ e Dr. Antwon Peguero MD Referring Provider Active Team Status: Active Member Role Status Dates Dr. Neville Serrano MD Primary Care Provider Active Dr. Jeovanny Bal MD Attending Provider Active Team Status: Inactive Member Role Status Dates Dr. Neville Serrano MD Primary Care Provider Active Cathy See PA, PA Attending Provider, Referr ing Provider Active Team Status: Active Member Role Status Dates Dr. Neville Serrano MD Primary Care Provider Active Dr. Jeovanny Bal MD Attending Provider, Referring Pro vider Active Team Status: Inactive Member Role Status Dates Dr. Neville Serrano MD Primary Care Provider Active Dr. Lucio Fonseca DO Emergency Provider Active Team Status: Active Member Role Status Dates Dr. Neville Serrano MD Primary Care Provider Active Team Status: Active Member Role Status Dates Dr. Neville Serrano MD Primary Care Provider Active Start: April 25, 2024 Dr. Lucio Fonseca DO Emergency Provider Active Start: April 25, 2024 Dr. Jeovanny Bal MD Other Provider Active Start : April 25, 2024 Dr. Antwon Peguero MD Attending Provider Active Start: April 25, 2024 Team Status: Inactive Member Role Status Dates Dr. Neville Serrano MD Primary Care Provider Active Start: April 25, 2024 End: April 26, 2024 Dr. Lucio Fonseca DO Emergency Provider Active Start: April 25, 2024 End: April 26, 2024 Dr. Jeovanny Bal MD Other Provider Active Start : April 25, 2024 End: April 26, 2024 Dr. Antwon Peguero MD Admit Provider Active Start: April 25, 2024 End: April 26, 2024 Dr. Antwon Peguero MD Referring Provider Active Start: April 25, 2024 End: April 26, 2024 Dr. Antwon Peguero MD Other Provider Active Start: April 25, 2024 End: April 26, 2024 Dr. Tien Varma MD Attending Provider Active Start: April 25, 2024 End: April 26, 2024 Dr. Art Muro DO Other Provider Active Start: April 25, 2024 End: April 26, 2024 Team Status: Active Member Role Status Dates Dr. Zi Turner MD Attending Provider Active Start: April 26, 2024 Dr. Tien Varma MD Referring Provider Active Start: April 26, 2024 Team Status: Active Member Role Status Dates Dr. Neville Serrano MD Primary Care Provider Active Start: April 26, 2024 Dr. Lucio Fonseca DO Emergency Provider Active Start: April 26, 2024 Dr. Jeovanny Bal MD Other Provider Active Start : April 26, 2024 Dr. Antwon Peguero MD Admit Provider Active Start: April 26, 2024 Dr. Antwon Peguero MD Other Provider Active Start: April 26, 2024 Dr. Tien Varma MD Attending Provider Active Start: April 26, 2024 Dr. Tien Varma MD Other Provider Active Sta rt: April 26, 2024 Dr. Art Muro DO Other Provider Active Start: April 26, 2024 Team Status: Inactive Member Role Status Dates Dr. Neville Serrano MD Primary Care Provider Active Start: May 04, 2024 End: May 04, 2024 Dr. Neville Serrano MD Attending Provider Active Start: May 04, 2024 End: May 04, 2024 Dr. Neville Serrano MD Referring Provider Active Start: May 04, 2024 End: May 04, 2024 Team Status: Inactive Member Role Status Dates Dr. Neville Serrano MD Primary Care Provider Active Start: June 02, 2024 End: June 02, 2024 Dr. Neville Serrano MD Attending Provider Active Start: June 02, 2024 End: June 02, 2024 Team Status: Inactive Member Role Status Dates Dr. Neville Serrano MD Primary Care Provider Active Start: June 15, 2024 End: June 15, 2024 Dr. Neville Serrano MD Attending Provider Active Start: June 15, 2024 End: June 15, 2024 Dr. Neville Serrano MD Referring Provider Active Start: June 15, 2024 End: June 15, 2024 Team Status: Inactive Member Role Status Dates Dr. Neville Serrano MD Primary Care Provider Active Start: June 29, 2024 End: June 29, 2024 Dr. Neville Serrano MD Attending Provider Active Start: June 29, 2024 End: June 29, 2024 Team Status: Active Member Role/Relationship Status Dates Dr. Neville Serrano MD Primary care physician Active Team Status: Inactive Member Role/Relationship Status Dates Dr. Neville Serrano MD Primary care physician Active Start: January 18, 2025 End: January 18, 2025 Dr. Neville Serrano MD Attending physician Active Start: January 18, 2025 End: January 18, 2025 Team Status: Inactive Member Role/Relationship Status Dates Dr. Neville Serrano MD Primary care physician Active Start: February 22, 2025 End: February 22, 2025 Dr. Neville Serrano MD Referring Provider Active Start: February 22, 2025 End: February 22, 2025 Rebecca Bhatt REDEVELOPMENT MANAGER, REDEVELOPMENT MANAGER-C Attending physician Active Start: February 22, 2025 End: February 22, 2025 INFORMATION SOURCE (unrecogn ized section and content) DATE CREATED AUTHOR 02/25/2025 [facility] FOR RECORDS PERTAINING TO PATIENTS WHO ARE [...] BE BASED ON THE PRIMARY CLINICAL RECORDS. [employer] provides no warranty or guarantee of the accuracy or completeness of information in this document.
[2025-03-21 05:57] VITALS: PULSE 88; RESP 20; O2SAT 97
[2025-03-21 06:43] VITALS: BP 144/61; PULSE 98; RESP 21; TEMP 36.9; O2SAT 97
== END 2025-03-21 06:50 | disposition home or self-care (01) ==
PROVIDERS: Emergency Provider Emergency Medicine; PCP Family Medicine Geriatric Medicine; Visit Provider Emergency Medicine
DX: K52.9 Noninfective gastroenteritis and colitis, unspecified (principal); I50.32 Chronic diastolic (congestive) heart failure; I13.0 Hypertensive heart and chronic kidney disease with heart failure and stage 1 through stage 4 chronic kidney disease, or unspecified chronic kidney disease; N18.30 Chronic kidney disease, stage 3 unspecified; R11.2 Nausea with vomiting, unspecified; R09.82 Postnasal drip; I25.10 Atherosclerotic heart disease of native coronary artery without angina pectoris; Z95.5 Presence of coronary angioplasty implant and graft; E78.5 Hyperlipidemia, unspecified; I25.2 Old myocardial infarction; Z79.02 Long term (current) use of antithrombotics/antiplatelets; E86.0 Dehydration
CPT/HCPCS: 80053; 85025; 99284; A4216; J2405

== ENCOUNTER 2025-03-30 17:55 | Emergency (ER) | payer MEDICARE, OTHER, SELFPAY ==
[2025-03-30 17:56] VITALS: BP 141/65; PULSE 79; RESP 28; TEMP 36.7; O2SAT 97; BMI 39.4
--- OUTSIDE RECORDS SUMMARY | 2025-03-30 18:26 | XMS RPT_ITS | CCD ---
Author Organization [facility] Care Team Providers Care Supervisor Coil Winding Name Role Phone Steve Shepherd Unavailable Dr. [...] Care Provider Dr. Alphonso Thomas Emergency Provider [phone] Antwon Peguero Admit Provider Dr. [...] Joaquin Primary Care Provider Zach, Dr. Neville Joaquin Referring Provider ROBEL Kamara Attending Provider Valeriano, Dr. Up Attending Provider Valeriano, Dr. Up Referring Provider Zach BINGHAM, Dr. Neville Joaquin Primary Care Provider [phone] Dr. Lucio Fonseca DO Emergency Provider Valeriano BINGHAM, Dr. pU Other Provider Marielena BINGHAM, Dr. Antwon Castillo Attending Provider Marielena BINGHAM, Dr. Antwon Castillo Admit Provider Marielena [...] Dr. Neville Joaquin Primary Care Physician [phone] Zach BINGHAM, Dr. Neville Joaquin Attending Physician [...] Care Unavailable Antwon Peguero Attending Unavailable Valeriano, Vernon Consulting Unavailable Rebecca Bhatt NP Attending Unavailable Zach, Neville Chi Referring Unavailable Zach, Neville Chi Primary Care Unavailable Zach BINGHAM, Dr. Neville Joaquin Primary Care Physician [phone] Zach BINGHAM, Dr. Neville Joaquin Attending Physician Dr. Neville Serrano MD, Chi Referring Provider [phone] Miller YATES-CRebecca Attending Physician Allergies Allergy Classification Reported Allergen(s) Allergy Type Date of Onset Reaction(s) Facility (5 sources) Lisinopril Drug Allergy 4 Dry, hacking, constant cough (4 sources) Atenolol Drug Allergy 4 Abd cramps/diarrhea Comment on above: diarrhea for 10 yea rs (3 sources) amLODIPine Drug Allergy 4 PT UNSURE OF REACTION (1 source) amLODIPine Drug Allergy 5 Repository (1 source) Atenolol Drug Allergy 5 Repository (1 source) Lisinopril Drug Allergy 5 Repository Medications Current Medications Medication Drug Class(es) [...] 12.5 mg PO TWICE A DAY 180 3 May 23, 2023 9:51am June 24, 2023 [...] mg tablet Active 50 mg PO DAILY 30 April 26, 2024 12:00am Hold for serum potassium more than 5.0 Complies with drug therapy Start: 08-12-2023 End: 04-26-2024 take 0.5 tablet by mouth once daily Spironolactone 25 mg tablet Discontinued 0 .ROUTE .COMPLEX 45 3 August 12, 2023 10:20am April 26, [...] SODIUM TABS as directed LEVOTHYROXINE SODIUM TABS [id number] Steve HUSTON Start: 07-20-2015 End: 08-22-2022 Levothyroxine [...] 1 tab every 12 hours AMOXICILLIN-POT CLAVULANATE [id number] Steve HUSTON aspirin 81 mg delayed release oral tablet (13 sources) Platelet Aggregation Inhibitor, Nonsteroidal Anti-inflammatory Drug Start: 08-13-2022 End: 02-22-2025 take 1 tablet by mouth at breakfast Aspirin 81 mg Tablet,Delayed Release (Dr/Ec) Discontinued 81 mg PO WITH BREAKFAST 30 2 August 12, 2022 11:00pm February 22, 2025 2:30pm [facility] atenolol 50 mg oral tablet (20 sources) beta-Adrenergic Jonas Start: 03-28-2017 ATENOLOL TABS ATENOLOL TABS [id number] Steve HUSTON Start: 07-20-2015 End: 03-04-2023 take [...] ALCIUM TABS as directed ATORVASTATIN CALCIUM TABS [id number] Steve HUSTON Start: 07-20-2015 take 40 mg [...] mg tablet Discontinued 10 mg PO DAILY 3 October 01, 2022 9:01am July 01, 2023 2:29pm blood pressure Start: 03-28-2017 LISINOPRIL TAB S as directed LISINOPRIL TABS [id number] Steve HUSTON Start: 07-20-2015 take 10 mg by mouth once daily Lisinopril Active 10 MG PO DAILY July 19, 2015 11:00pm LOPERAMIDE HCL CAPS (2 sources) Opioid Agonist Start: 03-28-2017 IMODIUM A-D CA PS as directed LOPERAMIDE HCL CAPS [id number] Steve HUSTON losartan potassium 25 mg oral [...] HCL TABS as directed PAROXETINE HCL TABS [id number] Steve HUSTON predniSONE 20 mg oral tablet (16 sources) Start: 12-02-2019 End: 12-06-2019 take 2 tablets by mouth once daily at mealtime Prednisone 20 MG tablet Discontinued 40 mg PO DAILY 8 4 December 01, 2019 11:00pm December 04, 2019 [...] Coronary arteriosclerosis; Translations: [Atherosclerotic heart disease of [place] coronary artery without angina pectoris] 03-03-2023 Chronic Comment on above: 2.5 X 12 mm Appling WILY to pLAD 02/2023 Disorders of lipid [...] Comment on above: 2.5 X 12 mm Appling WILY to pLAD Other lower respiratory disease (1 source) Shortness of breath; Translations: [Shortness of breath] Onset: 05-07-2024 Episodic Skin and subcutaneous tissue infections (2 sources) Cellulitis of thumb ; Translations: [Cellulitis of right finger] Onset: 03-28-2017 03-28-2017 Episodic Results Test Name Value Interpretation Reference Range Facility Cardiology Visit Reporton Cardiology Visit Report [facility] [address] [place] [address] OFFICE VISIT Date of Service: 02/22/25 MR#: [id number] Acct: [id number] Name: EUGENIA MOMIN Rep #: [id number] : 1935 Provider: DUSTIN antonio Age/Sex: 89/F Location[place] [facility] Status: Signed HPI HPI History of Present [...] and asked to follow-up. 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 Normal Absolute lymphocyte countOrd ered By: Neville Serrano on 01-18-2025 Lymphocytes Auto (Unsp spec) [#/Vol] 2.61 10*3/uL 0.83-4.51 Absolute neutrophil countOrd ered By: Neville Serrano on 01-18-2025 Neutrophils (Bld) [#/Vol] 3.2 10*3/uL 2.0-7.7 Anion gap in Serum or Plasma Ordered By: Neville Serrano on 01-18-2025 Anion gap [Moles/Vol] 13 mmol/L - [facility] Automated lymphocyte count a s percentage of total leukocytesOrdered By: Neville Serrano on 01-18-2025 Lymphocytes/100 WBC Auto (Unsp spec) 38.7 % BUN/creatinine ratioOrdered By: Neville Serrano on 01-18-2025 Urea nitrogen/Creatinine [Mass ratio] 21.6 mg/mg High 10- Basophil percentageOrdered B y: Neville Serrano on 01-18-2025 Basophils/100 WBC (Bld) 1.2 % High 0-1 [facility] Bilirubin, totalOrdered By: Neville Serrano on 01-18-2025 Bilirubin [Mass/Vol] 0.25 mg/dL 0.00-1.30 [facility] CBC W/Diff, Automatedon 01-03 Absolute Lymph 2.61 X10 3/uL Normal 0.83-4.51 Comment on above: Performed By: #### L 500.4050, L506.1001, L100.0100, L501.9520 #### Laboratory [address] [place], [address] Absolute Neut 3.2 X10 3/uL Normal 2.0-7.7 Comment on above: Performed By: #### L 500.4050, L506.1001, L100.0100, L501.9520 #### Laboratory [address] [place], [address] Basophils/100 WBC (Bld) 1.2 % High 0-1 [facility] Comment on above: Performed By: #### L 500.4050, L506.1001, L100.0100, L501.9520 #### Laboratory [address] [place], [address] Eosinophils/100 WBC (Bld) 3.4 % Normal 0-5 Comment on above: Performed By: #### L 500.4050, L506.1001, L100.0100, L501.9520 #### Laboratory [address] [place], [address] Erythrocyte distribution width (RBC) [Ratio] 12.8 % Normal 11.6-14.6 Comment on above: Performed By: #### L 500.4050, L506.1001, L100.0100, L501.9520 #### Laboratory [address] [place], [address] Hematocrit (Bld) [Volume fraction] 39.2 % Normal 37-47 Comment on above: Performed By: #### L 500.4050, L506.1001, L100.0100, L501.9520 #### Laboratory [address] [place], [address] Hemoglobin (Bld) [Mass/Vol] 12.7 g/dL Normal 12.0-15.0 Comment on above: Performed By: #### L 500.4050, L506.1001, L100.0100, L501.9520 #### Laboratory [address] [place], [address] IG% 0.300 Normal 0.0-0.9 Comment on above: Result Comment: IG% - Immature Granulocytes (promyelocytes, myelocytes and metamyelocytes) > 1% indicates that a LEFT SHIFT is Present. Performed By: #### L 500.4050, L506.1001, L100.0100, L501.9520 #### Laboratory [address] [place], [address] Lymphocytes/100 WBC (Bld) 38.7 % Normal 19-41 Comment on above: Performed By: #### L 500.4050, L506.1001, L100.0100, L501.9520 #### Laboratory [address] [place], [address] MCH (RBC) [Entitic mass] 29.7 pg Normal 27.0-32.0 Comment on above: Performed By: #### L 500.4050, L506.1001, L100.0100, L501.9520 #### Laboratory [address] [place], [address] MCHC (RBC) [Mass/Vol] 32.4 g/dL Normal 32-36 [facility] Comment on above: Performed By: #### L 500.4050, L506.1001, L100.0100, L501.9520 #### Laboratory [address] [place], [address] MCV (RBC) [Entitic vol] 91.6 fL Normal 81-99 [facility] Comment on above: Performed By: #### L 500.4050, L506.1001, L100.0100, L501.9520 #### Laboratory [address] [place], [address] Monocytes/100 WBC (Bld) 9.5 % Normal 0-10 [facility] Comment on above: Performed By: #### L 500.4050, L506.1001, L100.0100, L501.9520 #### Laboratory [address] [place], [address] Neutrophils/100 WBC (Bld) 46.9 % Low 47-70 Comment on above: Performed By: #### L 500.4050, L506.1001, L100.0100, L501.9520 #### Laboratory [address] [place], [address] Nucleated RBC (Bld) [#/Vol] 0 10*3/uL Normal 0-5 Comment on above: Performed By: #### L 500.4050, L506.1001, L100.0100, L501.9520 #### Laboratory [address] [place], [address] Platelet mean volume (Bld) [Entitic vol] 10.7 fL Normal 6.2-12.0 Comment on above: Performed By: #### L 500.4050, L506.1001, L100.0100, L501.9520 #### Laboratory [address] [place], [address] Platelets (Bld) [#/Vol] 224 10*3/uL Normal 150-450 Comment on above: Performed By: #### L 500.4050, L506.1001, L100.0100, L501.9520 #### Laboratory [address] [place], [address] RBC (Bld) [#/Vol] 4.28 10*6/uL Normal 4.2-5.4 [facility] Comment on above: Performed By: #### L 500.4050, L506.1001, L100.0100, L501.9520 #### Laboratory [address] [place], [address] RDW SD 42.2 fl Normal 35.1-43.9 Comment on above: Performed By: #### L 500.4050, L506.1001, L100.0100, L501.9520 #### Laboratory [address] [place], [address] WBC (Bld) [#/Vol] 6.7 10*3/uL Normal 4.4-11.0 [facility] Comment on above: Performed By: #### L 500.4050, L506.1001, L100.0100, L501.9520 #### Laboratory [address] [place], [address] Carbon dioxide, total [Moles /volume] in Central venous bloodOrdered By: Neville Serrano on 01-18-2025 CO2 [Moles/Vol] 20.5 mmol/L Low 21.0-32.0 Chloride assayOrdered By: Loy Serrano on 01-18-2025 Chloride [Moles/Vol] 103 mmol/L 98-108 [facility] Comprehensive Metabolic Prof ilon 01-18-2025 Albumin [Mass/Vol] 4.1 g/dL Normal 3.4-4.8 [facility] Comment on above: Performed By: #### L 500.4050, L506.1001, L100.0100, L501.9520 #### Laboratory [address] [place], [address] Albumin/Globulin [Mass ratio] 1.3 {ratio} Normal 0.9-2.4 Comment on above: Performed By: #### L 500.4050, L506.1001, L100.0100, L501.9520 #### Laboratory [address] [place], [address] ALK PHOS 79 U/L Normal 35-104 Comment on above: Performed By: #### L 500.4050, L506.1001, L100.0100, L501.9520 #### Laboratory [address] [place], [address] ALT [Catalytic activity/Vol] 8 U/L Normal <=34 Comment on above: Performed By: #### L 500.4050, L506.1001, L100.0100, L501.9520 #### Laboratory [address] [place], [address] AST [Catalytic activity/Vol] 20 U/L Normal <=31 Comment on above: Result Comment: Hemo lysis present, Results??could be affected. ?? Performed By: #### L 500.4050, L506.1001, L100.0100, L501.9520 #### Laboratory [address] [place], [address] Bilirubin [Mass/Vol] 0.25 mg/dL Normal 0.00-1.30 [facility] Comment on above: Performed By: #### L 500.4050, L506.1001, L100.0100, L501.9520 #### Laboratory [address] [place], [address] BUN/CRE 21.6 RATIO High 10-20 Comment on above: Performed By: #### L 500.4050, L506.1001, L100.0100, L501.9520 #### Laboratory [address] [place], [address] Calcium [Mass/Vol] 9.2 mg/dL Normal 7.6-11.0 [facility] Comment on above: Performed By: #### L 500.4050, L506.1001, L100.0100, L501.9520 #### Laboratory [address] [place], [address] Chloride [Moles/Vol] 103 mmol/L Normal 98-108 [facility] Comment on above: Performed By: #### L 500.4050, L506.1001, L100.0100, L501.9520 #### Laboratory [address] [place], [address] CO2 [Moles/Vol] 20.5 mmol/L Low 21.0-32.0 Comment on above: Performed By: #### L 500.4050, L506.1001, L100.0100, L501.9520 #### Laboratory [address] [place], [address] Creatinine [Mass/Vol] 1.49 mg/dL High 0.70-1.20 [facility] Comment on above: Performed By: #### L 500.4050, L506.1001, L100.0100, L501.9520 #### Laboratory [address] [place], [address] GAP 13 Normal 5-15 Comment on above: Performed By: #### L 500.4050, L506.1001, L100.0100, L501.9520 #### Laboratory [address] [place], [address] GFR/1.73 sq M.predicted among non-blacks MDRD (S/P/Bld) [Vol rate/Area] 33 mL/min/{1.73_m2} Low >60 Comment on above: Result Comment: mL/m in/1.73m2 CKD-EPI Creatinine Equation (2020) Performed By: #### L 500.4050, L506.1001, L100.0100, L501.9520 #### Laboratory [address] [place], [address] Globulin (S) [Mass/Vol] 3.1 g/dL Normal 2.2-4.2 [facility] Comment on above: Performed By: #### L 500.4050, L506.1001, L100.0100, L501.9520 #### Laboratory [address] [place], [address] Glucose [Mass/Vol] 107 mg/dL High 70-99 [facility] Comment on above: Performed By: #### L 500.4050, L506.1001, L100.0100, L501.9520 #### Laboratory [address] [place], [address] Potassium [Moles/Vol] 5.1 mmol/L Normal 3.3-5.1 [facility] Comment on above: Result Comment: Hemo lysis present, Results??could be affected. ?? Performed By: #### L 500.4050, L506.1001, L100.0100, L501.9520 #### Laboratory [address] [place], [address] Sodium [Moles/Vol] 137 mmol/L Normal 133-145 [facility] Comment on above: Performed By: #### L 500.4050, L506.1001, L100.0100, L501.9520 #### Laboratory [address] [place], [address] T PROT 7.1 g/dL Normal 5.9-8.4 Comment on above: Performed By: #### L 500.4050, L506.1001, L100.0100, L501.9520 #### Laboratory [address] [place], [address] Urea nitrogen [Mass/Vol] 32 mg/dL High 4-19 Comment on above: Performed By: #### L 500.4050, L506.1001, L100.0100, L501.9520 #### Laboratory [address] [place], [address] Eosinophil percentageOrdered By: Neville Serrano on 01-18-2025 Eosinophils/100 WBC (Bld) 3.4 % 0-5 Erythrocyte distribution wid th ratioOrdered By: Neville Serrano on 01-18-2025 Erythrocyte distribution width (RBC) [Ratio] 12.8 % 11.6-14.6 Erythrocyte distribution wid th standard deviationOrdered By: Neville Serrano on 01-18-2025 Erythrocyte distribution width (RBC) [Ratio] 42.2 fl 35.1-43.9 Glomerular filtration rate ( GFR) estimation/1.73 sq m using serum, plasma, or whole bOrdered By: Neville Serrano on 01-18-2025 GFR/1.73 sq M.predicted among non-blacks MDRD (S/P/Bld) [Vol rate/Area] 33 mL/min/{1.73_m2} Low >60 Comment on above: mL/min/1.73m2 CKD-EP I Creatinine Equation (2020) Hematocrit Auto (Bld) [Volum e fraction]Ordered By: Neville Serrano on 01-18-2025 Hematocrit (Bld) [Volume fraction] 39.2 % 37-47 Hemoglobin measurementOrdere d By: Neville Serrano on 01-18-2025 Hemoglobin (Bld) [Mass/Vol] 12.7 g/dL 12.0-15.0 Immature granulocytes/100 WB C Auto (Bld)Ordered By: Neville Serrano on 01-18-2025 Immature granulocytes/100 WBC (Bld) 0.300 % 0.0-0.9 Comment on above: IG% - Immature Granu locytes (promyelocytes, myelocytes and metamyelocytes) > 1% indicates that a LEFT SHIFT is Present. Laboratory - Chemistry and C hemistry - challengeOrdered By: Neville Serrano on 01-18-2025 AST [Catalytic activity/Vol] 20 U/L <32 Comment on above: Hemolysis present, R esults could be affected. MCV (mean corpuscular volume ) determinationOrdered By: Neville Serrano on 01-18-2025 MCV (RBC) [Entitic vol] 91.6 fL 81-99 [facility] Mean corpuscular hemoglobin (MCH) determinationOrdered By: Neville Serrano on 01-18-2025 MCH (RBC) [Entitic mass] 29.7 pg 27.0-32.0 Mean corpuscular hemoglobin concentration (MCHC) determinationOrdered By: Neville Serrano on 01-18-2025 MCHC (RBC) [Mass/Vol] 32.4 g/dL 32-36 [facility] Mean platelet volume determi nationOrdered By: Neville Serrano on 01-18-2025 Platelet mean volume (Bld) [Entitic vol] 10.7 fL 6.2-12.0 Monocyte percentageOrdered B y: Neville Serrano on 01-18-2025 Monocytes/100 WBC (Bld) 9.5 % 0-10 [facility] Neutrophil percentageOrdered By: Neville Serrano on 01-18-2025 Neutrophils/100 WBC (Bld) 46.9 % Low 47-70 Nucleated red blood cell per centageOrdered By: Neville Serrano on 01-18-2025 Nucleated RBC/100 WBC (Bld) [Ratio] 0 % 0-5 Platelet countOrdered By: Loy Serrano on 01-18-2025 Platelets (Bld) [#/Vol] 224 10*3/uL 150-450 Potassium measurement (mass/ volume)Ordered By: Neville Serrano on 01-18-2025 Potassium (Unsp spec) [Mass/Vol] 5.1 mmol/L 3.3-5.1 Comment on above: Hemolysis present, R esults could be affected. RBC Auto (Bld) [#/Vol]Ordere d By: Neville Serrano on 01-18-2025 RBC (Bld) [#/Vol] 4.28 10*6/uL 4.2-5.4 [facility] Serum creatinine measurement (mass/volume)Ordered By: Neville Serrano on 01-18-2025 Creatinine [Mass/Vol] 1.49 mg/dL High 0.70-1.20 [facility] Serum globulin measurementOr dered By: Neville Serrano 01-18-2025 Globulin (S) [Mass/Vol] 3.1 g/dL 2.2-4.2 [facility] Serum glucose measurement (m ass/volume)Ordered By: Neville Serrano 01-18-2025 Glucose [Mass/Vol] 107 mg/dL High 70-99 [facility] Serum or plasma alanine gaspar otransferase (ALT) measurementOrdered By: Neville Serrano 01-18-2025 ALT [Catalytic activity/Vol] 8 U/L <35 Serum or plasma albumin andreas urement (mass/volume)Ordered By: Neville Serrano 01-18-2025 Albumin [Mass/Vol] 4.1 g/dL 3.4-4.8 [facility] Serum or plasma albumin/glob ulin mass ratioOrdered By: Neville Serrano 01-18-2025 Albumin/Globulin [Mass ratio] 1.3 {ratio} 0.9-2.4 Serum or plasma alkaline be sphatase measurementOrdered By: Neville Serrano 01-18-2025 ALP [Catalytic activity/Vol] 79 U/L 35-104 Serum or plasma calcium andreas urement (mass/volume)Ordered By: Neville Serrano 01-18-2025 Calcium [Mass/Vol] 9.2 mg/dL 7.6-11.0 [facility] Serum or plasma urea nitroge n measurement (mass/volume)Ordered By: Neville Serrano 01-18-2025 Urea nitrogen [Mass/Vol] 32 mg/dL High 4-19 Sodium levelOrdered By: Neville Serrano on 01-18-2025 Sodium [Moles/Vol] 137 mmol/L 133-145 [facility] TSH DL <= 0.005 mIU/L QnOrde red By: Neville Serrano on 01-18-2025 TSH Qn 4.040 uIU/mL 0.300-4.200 Thyroid Stim Hormone (TSH)on 01-18-2025 TSH 4.040 uIU/mL Normal 0.300-4.200 Comment on above: Performed By: #### L 500.4050, L506.1001, L100.0100, L501.9520 #### Laboratory [address] [place], [address] Total proteinOrdered By: Neville Serrano on 01-18-2025 Protein [Mass/Vol] 7.1 g/dL 5.9-8.4 [facility] Vitamin D,25 Hydroxyon 01-18 Vitamin D 25-OH 20.7 ng/mL Low 30-100 Comment on above: Result Comment: Luz Marina min D Status Deficiency: <20 ng/mL (50nmol/L) Insufficiency: 20-30 ng/mL (50-75 nmol/L) Sufficiency: 30-100 ng/mL (75-250 nmol/L) Toxicity: >100 ng/mL (>250 nmol/L) Performed By: #### L 500.4050, L506.1001, L100.0100, L501.9520 #### Laboratory [address] [place], [address] White blood cell (WBC) count Ordered By: Neville Serrano on 01-18-2025 WBC (Bld) [#/Vol] 6.7 10*3/uL 4.4-11.0 [facility] Cardiology Visit Reporton Cardiology Visit Report [facility] [address] [place] [address] OFFICE VISIT Date of Service: 08/12/24 MR#: [id number] Acct: [id number] Name: EUGENIA MOMIN Rep #: [id number] : 1935 Provider: Dr. Jeovanny Bal MD Age/Sex: 88/F [place] [facility] Status: Signed HPI HPI History [...] sinus rhythm with no acute changes. BT BURGLAR ALARM OPERATOR was noted to be elevated CT scan of the chest did not demonstrate any evidence of pulmonary embolism. She underwent an echocardiogram which demonstrated preserved ejection fraction with concentric left ventricular hypertrophy moderate mitral and aortic regurgitation. She was diuresed with intravenous Lasix and asked to follow-up. 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 Normal BUN/creatinine ratioOrdered By: Neville Serrano on 06-29-2024 Urea nitrogen/Creatinine [Mass ratio] 20.5 mg/mg High [facility] Basic Metabolic Profile (BMP )on 06-29-2024 Anion gap [Moles/Vol] 11 mmol/L Normal 5-15 [facility] Comment on above: Performed By: #### L 500.4050, L506.1001, L100.0100, L501.9520 #### Laboratory [address] [place], [address] BUN/CRE 20.5 RATIO High [facility] Comment on above: Performed By: #### L 500.4050, L506.1001, L100.0100, L501.9520 #### Laboratory [address] [place], [address] Calcium [Mass/Vol] 9.2 mg/dL Normal 7.6-11.0 [facility] Comment on above: Performed By: #### L 500.4050, L506.1001, L100.0100, L501.9520 #### Laboratory [address] [place], [address] Chloride [Moles/Vol] 102 mmol/L Normal 96-108 [facility] Comment on above: Performed By: #### L 500.4050, L506.1001, L100.0100, L501.9520 #### Laboratory [address] [place], [address] CO2 [Moles/Vol] 23.4 mmol/L Normal 22.0-29.0 Comment on above: Performed By: #### L 500.4050, L506.1001, L100.0100, L501.9520 #### Laboratory [address] [place], [address] Creatinine [Mass/Vol] 1.3 mg/dL High 0.6-1.0 [facility] Comment on above: Performed By: #### L 500.4050, L506.1001, L100.0100, L501.9520 #### Laboratory [address] [place], [address] GFR/1.73 sq M.predicted among non-blacks MDRD (S/P/Bld) [Vol rate/Area] 39 mL/min/{1.73_m2} Low >60 Comment on above: Result Comment: mL/m in/1.73m2 CKD-EPI Creatinine Equation (2020) Performed By: #### L 500.4050, L506.1001, L100.0100, L501.9520 #### Laboratory [address] [place], [address] Glucose [Mass/Vol] 97 mg/dL Normal 70-99 [facility] Comment on above: Performed By: #### L 500.4050, L506.1001, L100.0100, L501.9520 #### Laboratory [address] [place], [address] Potassium [Moles/Vol] 4.9 mmol/L Normal 3.3-5.1 [facility] Comment on above: Result Comment: Hemo lysis present, Results??could be affected. ?? Performed By: #### L 500.4050, L506.1001, L100.0100, L501.9520 #### Laboratory [address] [place], [address] Sodium [Moles/Vol] 137 mmol/L Normal 133-145 [facility] Comment on above: Performed By: #### L 500.4050, L506.1001, L100.0100, L501.9520 #### Laboratory [address] [place], [address] Urea nitrogen [Mass/Vol] 27 mg/dL High 4-19 Comment on above: Performed By: #### L 500.4050, L506.1001, L100.0100, L501.9520 #### Laboratory [address] [place], [address] Creatinine [Moles/Vol]Ordere d By: Neville Serrano on 06-29-2024 Creatinine [Mass/Vol] 1.3 mg/dL High 0.6-1.0 [facility] GFR/1.73 sq M.predicted yuki g non-blacks MDRD (S/P/Bld) [Vol rate/Area]Ordered By: Neville Serrano on 06-29-2024 Estimated GFR (MDRD) Non-Af Amer 39 Low >60 Comment on above: mL/min/1.73m2 CKD-EP I Creatinine Equation (2020) Serum glucose measurement (m ass/volume)Ordered By: Neville Serrano on 06-29-2024 Glucose [Mass/Vol] 97 mg/dL 70-99 [facility] Serum or plasma anion gap de termination (moles/volume)Ordered By: Neville Serrano on 06-29-2024 Anion gap [Moles/Vol] 11 mmol/L 5-15 [facility] Serum or plasma calcium andreas urement (mass/volume)Ordered By: Neville Serrano on 06-29-2024 Calcium [Mass/Vol] 9.2 mg/dL 7.6-11.0 [facility] Serum or plasma potassium me asurementOrdered By: Neville Serrano on 06-29-2024 Potassium [Moles/Vol] 4.9 mmol/L 3.3-5.1 [facility] Comment on above: Hemolysis present, R esults could be affected. Serum or plasma sodium measu rement (moles/volume)Ordered By: Neville Serrano on 06-29-2024 Sodium [Moles/Vol] 137 mmol/L 133-145 [facility] Serum or plasma urea nitroge n measurement (mass/volume)Ordered By: Neville Serrano on 06-29-2024 Urea nitrogen [Mass/Vol] 27 mg/dL High 4-19 Basic Metabolic Profile (BMP )on 06-15-2024 BUN/CRE 23.7 RATIO High 10-20 Comment on above: Performed By: #### L 500.4050, L506.1001, L100.0100, L501.9520 #### Laboratory [address] [place], [address] CA,Total 9.5 mg/dL Normal 8.5-10.1 Comment on above: Performed By: #### L 500.4050, L506.1001, L100.0100, L501.9520 #### Laboratory [address] [place], [address] Chloride [Moles/Vol] 102 mmol/L Normal 98-107 [facility] Comment on above: Performed By: #### L 500.4050, L506.1001, L100.0100, L501.9520 #### Laboratory [address] [place], [address] CO2 [Moles/Vol] 22.0 mmol/L Normal 21.0-32.0 Comment on above: Performed By: #### L 500.4050, L506.1001, L100.0100, L501.9520 #### Laboratory [address] [place], [address] Creatinine [Mass/Vol] 1.77 mg/dL High 0.55-1.02 [facility] Comment on above: Result Comment: The validity of the calculated GFR GFRAA in patients over 70 years has not been determined. Clinical correlation is essential. Performed By: #### L 500.4050, L506.1001, L100.0100, L501.9520 #### Laboratory [address] [place], [address] EST GFR - AA 35 mL/min Low >60 Comment on above: Result Comment: Afri can [place] GFR Calc Performed By: #### L 500.4050, L506.1001, L100.0100, L501.9520 #### Laboratory [address] [place], [address] GAP 13 Normal 5-15 Comment on above: Performed By: #### L 500.4050, L506.1001, L100.0100, L501.9520 #### Laboratory [address] [place], [address] GFR/1.73 sq M.predicted among non-blacks MDRD (S/P/Bld) [Vol rate/Area] 29 mL/min/{1.73_m2} Low >60 Comment on above: Result Comment: Non- GFR Calc Performed By: #### L 500.4050, L506.1001, L100.0100, L501.9520 #### Laboratory [address] [place], [address] Glucose [Mass/Vol] 119 mg/dL High 74-106 [facility] Comment on above: Result Comment: Fast ing Glucose result from 100 to 125 mg/dL suggests IMPAIRED HOMEOSTASIS per A.D.A. criteria. Performed By: #### L 500.4050, L506.1001, L100.0100, L501.9520 #### Laboratory [address] [place], [address] Potassium [Moles/Vol] 4.8 mmol/L Normal 3.5-5.1 [facility] Comment on above: Result Comment: Mode rate Hemolysis, Result may be falsely increased. Performed By: #### L 500.4050, L506.1001, L100.0100, L501.9520 #### Laboratory [address] [place], [address] Sodium [Moles/Vol] 136 mmol/L Normal 136-145 [facility] Comment on above: Performed By: #### L 500.4050, L506.1001, L100.0100, L501.9520 #### Laboratory [address] [place], [address] Urea nitrogen [Mass/Vol] 42 mg/dL High 7-18 Comment on above: Performed By: #### L 500.4050, L506.1001, L100.0100, L501.9520 #### Laboratory [address] [place], [address] Blood urea nitrogen (BUN)/cr eatinine ratioOrdered By: Neville Serrano on 06-15-2024 Urea nitrogen/Creatinine [Mass ratio] 23.7 mg/mg High 10-20 Carbon dioxide measurementOr dered By: Neville Serrano 06-15-2024 CO2 [Moles/Vol] 22.0 mmol/L 21.0-32.0 Chloride measurementOrdered By: Neville Serrano on 06-15-2024 Chloride [Moles/Vol] 102 mmol/L 98-107 [facility] Estimated glomerular filtrat ion rate (GFR) AmericanOrdered By: Neville Serrano on 06-15-2024 Estimated GFR (MDRD) Amer 35 mL/min Low >60 Comment on above: GFR Calc Glomerular filtration rate ( GFR) estimationOrdered By: Neville Serrano on 06-15-2024 Estimated GFR (MDRD) Non-Af Amer 29 mL/min Low >60 Comment on above: Non- GFR Calc Glucose measurementOrdered B y: Neville Serrano on 06-15-2024 Glucose [Mass/Vol] 119 mg/dL High 74-106 [facility] Comment on above: Fasting Glucose resu lt from 100 to 125 mg/dL suggests IMPAIRED HOMEOSTASIS per A.D.A. criteria. Potassium measurementOrdered By: Neville Serrano on 06-15-2024 Potassium [Moles/Vol] 4.8 mmol/L 3.5-5.1 [facility] Comment on above: Moderate Hemolysis, Result may be falsely increased. Serum anion gap measurementO rdered By: Neville Serrano on 06-15-2024 Anion gap [Moles/Vol] 13 mmol/L 5-15 [facility] Serum or plasma calcium andreas urement (mass/volume)Ordered By: Neville Serrano on 06-15-2024 Calcium [Mass/Vol] 9.5 mg/dL 8.5-10.1 [facility] Serum or plasma creatinine m easurement (mass/volume)Ordered By: Neville Serrano on 06-15-2024 Creatinine [Mass/Vol] 1.77 mg/dL High 0.55-1.02 [facility] Comment on above: The validity of the calculated GFR & GFRAA in patients over 70 years has not been determined. Clinical correlation is essential. Serum or plasma urea nitroge n measurement (mass/volume)Ordered By: Neville Serrano on 06-15-2024 Urea nitrogen [Mass/Vol] 42 mg/dL High 7-18 Sodium levelOrdered By: Neville Serrano on 06-15-2024 Sodium [Moles/Vol] 136 mmol/L 136-145 [facility] [id number]-Gqikego DOrdered By: Stephanie Serrano on 06-02-2024 Vitamin D 25-Hydroxy 24.4 ng/mL [facility] Comment on above: Vitamin D 25(OH) Sta tus Range Deficiency <20 ng/mL (50nmol/L) Insufficiency 20 - 30 ng/mL (50 - 75 nmol/L) Sufficiency 30 - 100 ng/mL (75 - 250 nmol/L) Toxicity >100 ng/mL (>250 nmol/L) Absolute neutrophil countOrd ered By: Neville Serrano on 06-02-2024 Neutrophils (Bld) [#/Vol] 4.3 10*3/uL 2.0-7.7 Albumin to globulin ratioOrd ered By: Neville Serrano on 06-02-2024 Albumin/Globulin [Mass ratio] 0.8 {ratio} Low 0.9-2.4 Basophil percentageOrdered B y: Neville Zach on 06-02-2024 Basophils/100 WBC (Bld) 0.7 % 0-1 [facility] Bilirubin, totalOrdered By: Neville Zach on 06-02-2024 Bilirubin [Mass/Vol] 0.30 mg/dL 0.20-1.00 [facility] Comment on above: For patients on eltr ombopag therapy, use of Dimension [place] TBIL is not recommended. Blood urea nitrogen (BUN)/cr eatinine ratioOrdered By: Neville Serrano on 06-02-2024 Urea nitrogen/Creatinine [Mass ratio] 21.9 mg/mg High 10-20 CBC W/Diff, Automatedon 05-06 Absolute Lymph 2.74 X10 3/uL Normal 0.83-4.51 Comment on above: Performed By: #### L 501.9520, L500.4050, L506.1000, L100.0100 #### Laboratory [address] [place], [address] Absolute Neut 4.3 X10 3/uL Normal 2.0-7.7 Comment on above: Performed By: #### L 501.9520, L500.4050, L506.1000, L100.0100 #### Laboratory [address] [place], [address] Basophils/100 WBC (Bld) 0.7 % Normal 0-1 [facility] Comment on above: Performed By: #### L 501.9520, L500.4050, L506.1000, L100.0100 #### Laboratory [address] [place], [address] Eosinophils/100 WBC (Bld) 3.6 % Normal 0-5 Comment on above: Performed By: #### L 501.9520, L500.4050, L506.1000, L100.0100 #### Laboratory [address] [place], [address] Erythrocyte distribution width (RBC) [Ratio] 12.4 % Normal 11.6-14.6 Comment on above: Performed By: #### L 501.9520, L500.4050, L506.1000, L100.0100 #### Laboratory [address] [place], [address] Hematocrit (Bld) [Volume fraction] 39.5 % Normal 37-47 Comment on above: Performed By: #### L 501.9520, L500.4050, L506.1000, L100.0100 #### Laboratory [address] [place], [address] Hemoglobin (Bld) [Mass/Vol] 13.0 g/dL Normal 12.0-15.0 Comment on above: Performed By: #### L 501.9520, L500.4050, L506.1000, L100.0100 #### Laboratory [address] [place], [address] IG% 0.400 Normal 0.0-0.9 Comment on above: Result Comment: IG% - Immature Granulocytes (promyelocytes, myelocytes and metamyelocytes) > 1% indicates that a LEFT SHIFT is Present. Performed By: #### L 501.9520, L500.4050, L506.1000, L100.0100 #### Laboratory [address] [place], [address] Lymphocytes/100 WBC (Bld) 33.8 % Normal 19-41 Comment on above: Performed By: #### L 501.9520, L500.4050, L506.1000, L100.0100 #### Laboratory [address] [place], [address] MCH (RBC) [Entitic mass] 29.6 pg Normal 27.0-32.0 Comment on above: Performed By: #### L 501.9520, L500.4050, L506.1000, L100.0100 #### Laboratory [address] [place], [address] MCHC (RBC) [Mass/Vol] 32.9 g/dL Normal 32-36 [facility] Comment on above: Performed By: #### L 501.9520, L500.4050, L506.1000, L100.0100 #### Laboratory [address] [place], [address] MCV (RBC) [Entitic vol] 90.0 fL Normal 81-99 [facility] Comment on above: Performed By: #### L 501.9520, L500.4050, L506.1000, L100.0100 #### Laboratory [address] [place], [address] Monocytes/100 WBC (Bld) 8.9 % Normal 0-10 [facility] Comment on above: Performed By: #### L 501.9520, L500.4050, L506.1000, L100.0100 #### Laboratory [address] [place], [address] Neutrophils/100 WBC (Bld) 52.6 % Normal 47-70 Comment on above: Performed By: #### L 501.9520, L500.4050, L506.1000, L100.0100 #### Laboratory [address] [place], [address] Nucleated RBC (Bld) [#/Vol] 0 10*3/uL Normal 0-5 Comment on above: Performed By: #### L 501.9520, L500.4050, L506.1000, L100.0100 #### Laboratory [address] [place], [address] Platelet mean volume (Bld) [Entitic vol] 10.1 fL Normal 6.2-12.0 Comment on above: Performed By: #### L 501.9520, L500.4050, L506.1000, L100.0100 #### Laboratory [address] [place], [address] Platelets (Bld) [#/Vol] 288 10*3/uL Normal 150-450 Comment on above: Performed By: #### L 501.9520, L500.4050, L506.1000, L100.0100 #### Laboratory [address] [place], [address] RBC (Bld) [#/Vol] 4.39 10*6/uL Normal 4.2-5.4 [facility] Comment on above: Performed By: #### L 501.9520, L500.4050, L506.1000, L100.0100 #### Laboratory [address] [place], [address] RDW SD 40.8 fl Normal 35.1-43.9 Comment on above: Performed By: #### L 501.9520, L500.4050, L506.1000, L100.0100 #### Laboratory [address] [place], [address] WBC (Bld) [#/Vol] 8.1 10*3/uL Normal 4.4-11.0 [facility] Comment on above: Performed By: #### L 501.9520, L500.4050, L506.1000, L100.0100 #### Laboratory [address] [place], [address] Carbon dioxide measurementOr dered By: Neville Serrano on 06-02-2024 CO2 [Moles/Vol] 26.0 mmol/L 21.0-32.0 Chloride measurementOrdered By: Neville Serrano on 06-02-2024 Chloride [Moles/Vol] 103 mmol/L 98-107 [facility] Comprehensive Metabolic Prof ilon 06-02-2024 Albumin [Mass/Vol] 3.4 g/dL Normal 3.2-5.0 [facility] Comment on above: Performed By: #### L 501.9520, L500.4050, L506.1000, L100.0100 #### Laboratory [address] [place], [address] Albumin/Globulin [Mass ratio] 0.8 {ratio} Low 0.9-2.4 Comment on above: Performed By: #### L 501.9520, L500.4050, L506.1000, L100.0100 #### Laboratory [address] [place], [address] ALK P 87 U/L Normal 45-117 Comment on above: Performed By: #### L 501.9520, L500.4050, L506.1000, L100.0100 #### Laboratory [address] [place], [address] ALT [Catalytic activity/Vol] 17 U/L Normal 13-56 Comment on above: Performed By: #### L 501.9520, L500.4050, L506.1000, L100.0100 #### Laboratory [address] [place], [address] AST [Catalytic activity/Vol] 13 U/L Low 15-37 Comment on above: Performed By: #### L 501.9520, L500.4050, L506.1000, L100.0100 #### Laboratory [address] [place], [address] Bilirubin [Mass/Vol] 0.30 mg/dL Normal 0.20-1.00 [facility] Comment on above: Result Comment: For patients on eltrombopag therapy, use of Dimension [place] TBIL is not recommended. Performed By: #### L 501.9520, L500.4050, L506.1000, L100.0100 #### Laboratory [address] [place], [address] BUN/CRE 21.9 RATIO High 10-20 Comment on above: Performed By: #### L 501.9520, L500.4050, L506.1000, L100.0100 #### Laboratory [address] [place], [address] CA,Total 9.1 mg/dL Normal 8.5-10.1 Comment on above: Performed By: #### L 501.9520, L500.4050, L506.1000, L100.0100 #### Laboratory [address] [place], [address] Chloride [Moles/Vol] 103 mmol/L Normal 98-107 [facility] Comment on above: Performed By: #### L 501.9520, L500.4050, L506.1000, L100.0100 #### Laboratory [address] [place], [address] CO2 [Moles/Vol] 26.0 mmol/L Normal 21.0-32.0 Comment on above: Performed By: #### L 501.9520, L500.4050, L506.1000, L100.0100 #### Laboratory [address] [place], [address] Creatinine [Mass/Vol] 1.46 mg/dL High 0.55-1.02 [facility] Comment on above: Result Comment: The validity of the calculated GFR GFRAA in patients over 70 years has not been determined. Clinical correlation is essential. Performed By: #### L 501.9520, L500.4050, L506.1000, L100.0100 #### Laboratory [address] [place], [address] EST GFR - AA 43 mL/min Low >60 Comment on above: Result Comment: Afri can [place] GFR Calc Performed By: #### L 501.9520, L500.4050, L506.1000, L100.0100 #### Laboratory [address] [place], [address] GAP 8 Normal 5-15 Comment on above: Performed By: #### L 501.9520, L500.4050, L506.1000, L100.0100 #### Laboratory [address] [place], [address] GFR/1.73 sq M.predicted among non-blacks MDRD (S/P/Bld) [Vol rate/Area] 36 mL/min/{1.73_m2} Low >60 Comment on above: Result Comment: Non- GFR Calc Performed By: #### L 501.9520, L500.4050, L506.1000, L100.0100 #### Laboratory [address] [place], [address] Globulin (S) [Mass/Vol] 4.1 g/dL Normal 2.2-4.2 [facility] Comment on above: Performed By: #### L 501.9520, L500.4050, L506.1000, L100.0100 #### Laboratory [address] [place], [address] Glucose [Mass/Vol] 113 mg/dL High 74-106 [facility] Comment on above: Result Comment: Fast ing Glucose result from 100 to 125 mg/dL suggests IMPAIRED HOMEOSTASIS per A.D.A. criteria. Performed By: #### L 501.9520, L500.4050, L506.1000, L100.0100 #### Laboratory [address] [place], [address] Potassium [Moles/Vol] 4.9 mmol/L Normal 3.5-5.1 [facility] Comment on above: Performed By: #### L 501.9520, L500.4050, L506.1000, L100.0100 #### Laboratory [address] [place], [address] Sodium [Moles/Vol] 137 mmol/L Normal 136-145 [facility] Comment on above: Performed By: #### L 501.9520, L500.4050, L506.1000, L100.0100 #### Laboratory [address] [place], [address] T PROT 7.5 g/dL Normal 6.4-8.2 Comment on above: Performed By: #### L 501.9520, L500.4050, L506.1000, L100.0100 #### Laboratory [address] [place], [address] Urea nitrogen [Mass/Vol] 32 mg/dL High 7-18 Comment on above: Performed By: #### L 501.9520, L500.4050, L506.1000, L100.0100 #### Laboratory [address] [place], [address] Eosinophil percentageOrdered By: Neville Serrano on 06-02-2024 Eosinophils/100 WBC (Bld) 3.6 % 0-5 Erythrocyte distribution wid th ratioOrdered By: Neville Serrano on 06-02-2024 Erythrocyte distribution width (RBC) [Ratio] 12.4 % 11.6-14.6 Erythrocyte distribution wid th standard deviationOrdered By: Neville Serrano on 06-02-2024 Erythrocyte distribution width (RBC) [Entitic vol] 40.8 fL 35.1-43.9 Estimated glomerular filtrat ion rate (GFR) AmericanOrdered By: Neville Serrano on 06-02-2024 Estimated GFR (MDRD) Amer 43 mL/min Low >60 Comment on above: GFR Calc Glomerular filtration rate ( GFR) estimationOrdered By: Neville Serrano on 06-02-2024 Estimated GFR (MDRD) Non-Af Amer 36 mL/min Low >60 Comment on above: Non- GFR Calc Glucose measurementOrdered B y: Neville Serrano on 06-02-2024 Glucose [Mass/Vol] 113 mg/dL High 74-106 [facility] Comment on above: Fasting Glucose resu lt from 100 to 125 mg/dL suggests IMPAIRED HOMEOSTASIS per A.D.A. criteria. Hematocrit Auto (Bld) [Volum e fraction]Ordered By: Neville Serrano on 06-02-2024 Hematocrit (Bld) [Volume fraction] 39.5 % 37-47 Hemoglobin measurementOrdere d By: Neville Serrano 06-02-2024 Hemoglobin (Bld) [Mass/Vol] 13.0 g/dL 12.0-15.0 Immature granulocytes/100 WB C Auto (Bld)Ordered By: Neville Serrano 06-02-2024 Immature granulocytes/100 WBC (Bld) 0.400 % 0.0-0.9 Comment on above: IG% - Immature Granu locytes (promyelocytes, myelocytes and metamyelocytes) > 1% indicates that a LEFT SHIFT is Present. Laboratory - Chemistry and C hemistry - challengeOrdered By: Neville Serrano 06-02-2024 AST [Catalytic activity/Vol] 13 U/L Low 15-37 Lymphocytes Auto (Unsp spec) [#/Vol]Ordered By: Neville Serrano on 06-02-2024 Lymphocytes (Bld) [#/Vol] 2.74 10*3/uL 0.83-4.51 Lymphocytes/100 WBC Auto (Un sp spec)Ordered By: Neville Serrano on 06-02-2024 Lymphocytes/100 WBC (Bld) 33.8 % 19-41 MCV (mean corpuscular volume ) determinationOrdered By: Neville Serrano on 06-02-2024 MCV (RBC) [Entitic vol] 90.0 fL 81-99 [facility] Mean corpuscular hemoglobin (MCH) determinationOrdered By: Neville Serrano on 06-02-2024 MCH (RBC) [Entitic mass] 29.6 pg 27.0-32.0 Mean corpuscular hemoglobin concentration (MCHC) determinationOrdered By: Neville Serrano on 06-02-2024 MCHC (RBC) [Mass/Vol] 32.9 g/dL 32-36 [facility] Mean platelet volume determi nationOrdered By: Neville Serrano on 06-02-2024 Platelet mean volume (Bld) [Entitic vol] 10.1 fL 6.2-12.0 Monocyte percentageOrdered B y: Neville Serrano on 06-02-2024 Monocytes/100 WBC (Bld) 8.9 % 0-10 [facility] Neutrophil percentageOrdered By: Neville Serrano on 06-02-2024 Neutrophils/100 WBC (Bld) 52.6 % 47-70 Nucleated red blood cell per centageOrdered By: Neville Serrano on 06-02-2024 Nucleated RBC/100 WBC (Bld) [Ratio] 0 % 0-5 Platelet countOrdered By: Loy Serrano on 06-02-2024 Platelets (Bld) [#/Vol] 288 10*3/uL 150-450 Potassium measurementOrdered By: Neville Serrano on 06-02-2024 Potassium [Moles/Vol] 4.9 mmol/L 3.5-5.1 [facility] RBC Auto (Bld) [#/Vol]Ordere d By: Neville Serrano on 06-02-2024 RBC (Bld) [#/Vol] 4.39 10*6/uL 4.2-5.4 [facility] Serum anion gap measurementO rdered By: Neville Serrano on 06-02-2024 Anion gap [Moles/Vol] 8 mmol/L 5-15 [facility] Serum globulin measurementOr dered By: Neville Serrano on 06-02-2024 Globulin (S) [Mass/Vol] 4.1 g/dL 2.2-4.2 [facility] Serum or plasma alanine gaspar otransferase (ALT) measurementOrdered By: Neville Serrano on 06-02-2024 ALT [Catalytic activity/Vol] 17 U/L 13-56 Serum or plasma albumin andreas urement (mass/volume)Ordered By: Neville Serrano on 06-02-2024 Albumin [Mass/Vol] 3.4 g/dL 3.2-5.0 [facility] Serum or plasma alkaline be sphatase measurementOrdered By: Neville Serrano on 06-02-2024 ALP [Catalytic activity/Vol] 87 U/L 45-117 Serum or plasma calcium andreas urement (mass/volume)Ordered By: Neville Serrano on 06-02-2024 Calcium [Mass/Vol] 9.1 mg/dL 8.5-10.1 [facility] Serum or plasma creatinine m easurement (mass/volume)Ordered By: Neville Serrano on 06-02-2024 Creatinine [Mass/Vol] 1.46 mg/dL High 0.55-1.02 [facility] Comment on above: The validity of the calculated GFR & GFRAA in patients over 70 years has not been determined. Clinical correlation is essential. Serum or plasma urea nitroge n measurement (mass/volume)Ordered By: Neville Serrano on 06-02-2024 Urea nitrogen [Mass/Vol] 32 mg/dL High 7-18 Sodium levelOrdered By: Neville Serrano on 06-02-2024 Sodium [Moles/Vol] 137 mmol/L 136-145 [facility] TSH QnOrdered By: Neville Serrano o n 06-02-2024 Thyroid Stimulating Hormone (TSH) 7.640 uIU/mL High 0.358-3.740 Thyroid Stim Hormone (TSH)on 06-02-2024 TSH 7.640 uIU/mL High 0.358-3.740 Comment on above: Performed By: #### L 500.4050, L506.1001, L100.0100, L501.9520 #### Laboratory [address] [place], [address] Total proteinOrdered By: Neville Serrano on 06-02-2024 Protein [Mass/Vol] 7.5 g/dL 6.4-8.2 [facility] Vitamin D,25 Hydroxyon 06-02 Vitamin D 25-OH 24.4 ng/mL Normal Comment on above: Result Comment: [place] min D 25(OH) Status Range Deficiency <20 ng/mL (50nmol/L) Insufficiency 20 - 30 ng/mL (50 - 75 nmol/L) Sufficiency 30 - 100 ng/mL (75 - 250 nmol/L) Toxicity >100 ng/mL (>250 nmol/L) Performed By: #### L 501.9520, L500.4050, L506.1000, L100.0100 #### Laboratory [address] [place], [address] White blood cell (WBC) count Ordered By: Neville Serrano on 06-02-2024 WBC (Bld) [#/Vol] 8.1 10*3/uL 4.4-11.0 [facility] Basic Metabolic Profile (BMP )on 05-04-2024 BUN/CRE 27.3 RATIO High 10-20 Comment on above: Performed By: #### L 500.2500 #### Laboratory [address] [place], [address] CA,Total 8.9 mg/dL Normal 8.5-10.1 Comment on above: Performed By: #### L 500.2500 #### Laboratory [address] [place], [address] Chloride [Moles/Vol] 103 mmol/L Normal 98-107 [facility] Comment on above: Performed By: #### L 500.2500 #### Laboratory [address] [place], [address] CO2 [Moles/Vol] 27.0 mmol/L Normal 21.0-32.0 Comment on above: Performed By: #### L 500.2500 #### Laboratory [address] [place], [address] Creatinine [Mass/Vol] 1.32 mg/dL High 0.55-1.02 [facility] Comment on above: Result Comment: The validity of the calculated GFR GFRAA in patients over 70 years has not been determined. Clinical correlation is essential. Performed By: #### L 500.2500 #### Laboratory [address] [place], [address] EST GFR - AA 49 mL/min Low >60 Comment on above: Result Comment: Afri can [place] GFR Calc Performed By: #### L 500.2500 #### Laboratory [address] [place], [address] GAP 8 Normal 5-15 Comment on above: Performed By: #### L 500.2500 #### Laboratory [address] [place], [address] GFR/1.73 sq M.predicted among non-blacks MDRD (S/P/Bld) [Vol rate/Area] 40 mL/min/{1.73_m2} Low >60 Comment on above: Result Comment: Non- GFR Calc Performed By: #### L 500.2500 #### Laboratory [address] [place], [address] Glucose [Mass/Vol] 109 mg/dL High 74-106 [facility] Comment on above: Result Comment: Fast ing Glucose result from 100 to 125 mg/dL suggests IMPAIRED HOMEOSTASIS per A.D.A. criteria. Performed By: #### L 500.2500 #### Laboratory [address] [place], [address] Potassium [Moles/Vol] 4.1 mmol/L Normal 3.5-5.1 [facility] Comment on above: Performed By: #### L 500.2500 #### Laboratory [address] [place], [place], [id number] Sodium [Moles/Vol] 138 mmol/L Normal 136-145 [facility] Comment on above: Performed By: #### L 500.2500 #### Laboratory [address] [place], [place], [id number] Urea nitrogen [Mass/Vol] 36 mg/dL High 7-18 Comment on above: Performed By: #### L 500.2500 #### Laboratory [address] [place], [place], [id number] Blood urea nitrogen (BUN)/cr eatinine ratioOrdered By: Neville Serrano on 05-04-2024 Urea nitrogen/Creatinine [Mass ratio] 27.3 mg/mg High 10-20 Carbon dioxide measurementOr dered By: Neville Serrano on 05-04-2024 CO2 [Moles/Vol] 27.0 mmol/L 21.0-32.0 Chloride measurementOrdered By: Neville Serrano on 05-04-2024 Chloride [Moles/Vol] 103 mmol/L 98-107 [facility] Estimated glomerular filtrat ion rate (GFR) AmericanOrdered By: Neville Serrano on 05-04-2024 Estimated GFR (MDRD) Amer 49 mL/min Low >60 Comment on above: GFR Calc Glomerular filtration rate ( GFR) estimationOrdered By: Neville Serrano on 05-04-2024 Estimated GFR (MDRD) Non-Af Amer 40 mL/min Low >60 Comment on above: Non- GFR Calc Glucose measurementOrdered B y: Neville Serrano on 05-04-2024 Glucose [Mass/Vol] 109 mg/dL High 74-106 [facility] Comment on above: Fasting Glucose resu lt from 100 to 125 mg/dL suggests IMPAIRED HOMEOSTASIS per A.D.A. criteria. Potassium measurementOrdered By: Neville Serrano on 05-04-2024 Potassium [Moles/Vol] 4.1 mmol/L 3.5-5.1 [facility] Serum anion gap measurementO rdered By: Neville Serrano on 05-04-2024 Anion gap [Moles/Vol] 8 mmol/L 5-15 [facility] Serum or plasma calcium andreas urement (mass/volume)Ordered By: Neville Serrano on 05-04-2024 Calcium [Mass/Vol] 8.9 mg/dL 8.5-10.1 [facility] Serum or plasma creatinine m easurement (mass/volume)Ordered By: Neville Serrano on 05-04-2024 Creatinine [Mass/Vol] 1.32 mg/dL High 0.55-1.02 [facility] Comment on above: The validity of the calculated GFR & GFRAA in patients over 70 years has not been determined. Clinical correlation is essential. Serum or plasma urea nitroge n measurement (mass/volume)Ordered By: Neville Serrano on 05-04-2024 Urea nitrogen [Mass/Vol] 36 mg/dL High 7-18 Sodium levelOrdered By: Neville Serrano on 05-04-2024 Sodium [Moles/Vol] 138 mmol/L 136-145 [facility] Absolute neutrophil countOrd ered By: Antwon Peguero on 04-26-2024 Neutrophils (Bld) [#/Vol] 3.0 10*3/uL 2.0-7.7 Basic Metabolic Profile (BMP )on 04-26-2024 BUN/CRE 28.2 RATIO High 10-20 Comment on above: Performed By: #### L 500.2500, L100.0100 #### Laboratory [address] [place], [address] CA,Total 8.2 mg/dL Low 8.5-10.1 Comment on above: Performed By: #### L 500.2500, L100.0100 #### Laboratory [address] [place], [address] Chloride [Moles/Vol] 108 mmol/L High 98-107 [facility] Comment on above: Performed By: #### L 500.2500, L100.0100 #### Laboratory [address] [place], [address] CO2 [Moles/Vol] 25.0 mmol/L Normal 21.0-32.0 Comment on above: Performed By: #### L 500.2500, L100.0100 #### Laboratory [address] [place], [address] Creatinine [Mass/Vol] 1.17 mg/dL High 0.55-1.02 [facility] Comment on above: Result Comment: The validity of the calculated GFR GFRAA in patients over 70 years has not been determined. Clinical correlation is essential. Performed By: #### L 500.2500, L100.0100 #### Laboratory [address] [place], [address] ECRCL 37.38 ml/min Normal Comment on above: Performed By: #### L 500.2500, L100.0100 #### Laboratory [address] [place], [address] EST GFR - AA 56 mL/min Low >60 Comment on above: Result Comment: Afri can [place] GFR Calc Performed By: #### L 500.2500, L100.0100 #### Laboratory [address] [place], [address] GAP 8 Normal 5-15 Comment on above: Performed By: #### L 500.2500, L100.0100 #### Laboratory [address] [place], [address] GFR/1.73 sq M.predicted among non-blacks MDRD (S/P/Bld) [Vol rate/Area] 46 mL/min/{1.73_m2} Low >60 Comment on above: Result Comment: Non- GFR Calc Performed By: #### L 500.2500, L100.0100 #### Laboratory [address] [place], [address] Glucose [Mass/Vol] 123 mg/dL High 74-106 [facility] Comment on above: Result Comment: Fast ing Glucose result from 100 to 125 mg/dL suggests IMPAIRED HOMEOSTASIS per A.D.A. criteria. Performed By: #### L 500.2500, L100.0100 #### Laboratory [address] [place], [address] Potassium [Moles/Vol] 3.2 mmol/L Low 3.5-5.1 [facility] Comment on above: Performed By: #### L 500.2500, L100.0100 #### Laboratory [address] [place], [address] Sodium [Moles/Vol] 140 mmol/L Normal 136-145 [facility] Comment on above: Performed By: #### L 500.2500, L100.0100 #### Laboratory [address] [place], [address] Urea nitrogen [Mass/Vol] 33 mg/dL High 7-18 Comment on above: Performed By: #### L 500.2500, L100.0100 #### Laboratory [address] [place], [address] Basophil percentageOrdered B y: Antwon Peguero on 04-26-2024 Basophils/100 WBC (Bld) 0.8 % 0-1 [facility] Blood urea nitrogen (BUN)/cr eatinine ratioOrdered By: Antwon Peguero on 04-26-2024 Urea nitrogen/Creatinine [Mass ratio] 28.2 mg/mg High 10-20 CBC W/Diff, Automatedon 04-05 Absolute Lymph 2.69 X10 3/uL Normal 0.83-4.51 Comment on above: Performed By: #### L 500.2500, L100.0100 #### Laboratory [address] [place], [address] Absolute Neut 3.0 X10 3/uL Normal 2.0-7.7 Comment on above: Performed By: #### L 500.2500, L100.0100 #### Laboratory [address] [place], [address] Basophils/100 WBC (Bld) 0.8 % Normal 0-1 [facility] Comment on above: Performed By: #### L 500.2500, L100.0100 #### Laboratory [address] [place], [address] Eosinophils/100 WBC (Bld) 3.3 % Normal 0-5 Comment on above: Performed By: #### L 500.2500, L100.0100 #### Laboratory [address] [place], [address] Erythrocyte distribution width (RBC) [Ratio] 13.0 % Normal 11.6-14.6 Comment on above: Performed By: #### L 500.2500, L100.0100 #### Laboratory [address] [place], [address] Hematocrit (Bld) [Volume fraction] 36.5 % Low 37-47 Comment on above: Performed By: #### L 500.2500, L100.0100 #### Laboratory [address] [place], [address] Hemoglobin (Bld) [Mass/Vol] 12.0 g/dL Normal 12.0-15.0 Comment on above: Performed By: #### L 500.2500, L100.0100 #### Laboratory [address] [place], [address] IG% 0.200 Normal 0.0-0.9 Comment on above: Result Comment: IG% - Immature Granulocytes (promyelocytes, myelocytes and metamyelocytes) > 1% indicates that a LEFT SHIFT is Present. Performed By: #### L 500.2500, L100.0100 #### Laboratory [address] [place], [address] Lymphocytes/100 WBC (Bld) 40.6 % Normal 19-41 Comment on above: Performed By: #### L 500.2500, L100.0100 #### Laboratory [address] [place], [address] MCH (RBC) [Entitic mass] 29.7 pg Normal 27.0-32.0 Comment on above: Performed By: #### L 500.2500, L100.0100 #### Laboratory [address] [place], [address] MCHC (RBC) [Mass/Vol] 32.9 g/dL Normal 32-36 [facility] Comment on above: Performed By: #### L 500.2500, L100.0100 #### Laboratory [address] [place], [address] MCV (RBC) [Entitic vol] 90.3 fL Normal 81-99 [facility] Comment on above: Performed By: #### L 500.2500, L100.0100 #### Laboratory [address] [place], [address] Monocytes/100 WBC (Bld) 10.0 % Normal 0-10 [facility] Comment on above: Performed By: #### L 500.2500, L100.0100 #### Laboratory [address] [place], [address] Neutrophils/100 WBC (Bld) 45.1 % Low 47-70 Comment on above: Performed By: #### L 500.2500, L100.0100 #### Laboratory [address] [place], [address] Nucleated RBC (Bld) [#/Vol] 0 10*3/uL Normal 0-5 Comment on above: Performed By: #### L 500.2500, L100.0100 #### Laboratory [address] [place], [address] Platelet mean volume (Bld) [Entitic vol] 10.6 fL Normal 6.2-12.0 Comment on above: Performed By: #### L 500.2500, L100.0100 #### Laboratory [address] [place], [address] Platelets (Bld) [#/Vol] 215 10*3/uL Normal 150-450 Comment on above: Performed By: #### L 500.2500, L100.0100 #### Laboratory [address] [place], [address] RBC (Bld) [#/Vol] 4.04 10*6/uL Low 4.2-5.4 [facility] Comment on above: Performed By: #### L 500.2500, L100.0100 #### Laboratory [address] [place], [address] RDW SD 43.3 fl Normal 35.1-43.9 Comment on above: Performed By: #### L 500.2500, L100.0100 #### Laboratory [address] [place], [address] WBC (Bld) [#/Vol] 6.6 10*3/uL Normal 4.4-11.0 [facility] Comment on above: Performed By: #### L 500.2500, L100.0100 #### Laboratory [address] [place], [address] Carbon dioxide measurementOr dered By: Antwon Peguero on 04-26-2024 CO2 [Moles/Vol] 25.0 mmol/L 21.0-32.0 Chloride measurementOrdered By: Antwon Peguero on 04-26-2024 Chloride [Moles/Vol] 108 mmol/L High 98-107 [facility] Discharge Instructionon 04-05 Discharge Instruction [facility] Medical Records Department [address] [place] [address] Instructions for Home/Discharge Instructions 04/26/24 1103 MR#: [id number] Acct: [id number] Name: EUGENIA MOMIN Rep #: [id number] : 1935 88 From: Tien Varma MD [...] MD; Dr. Neville Serrano MD Signed Normal Eosinophil percentageOrdered By: Antwon Peguero on 04-26-2024 Eosinophils/100 WBC (Bld) 3.3 % 0-5 Erythrocyte distribution wid th ratioOrdered By: Antwon Peguero on 04-26-2024 Erythrocyte distribution width (RBC) [Ratio] 13.0 % 11.6-14.6 Erythrocyte distribution wid th standard deviationOrdered By: Antwon Peguero on 04-26-2024 Erythrocyte distribution width (RBC) [Entitic vol] 43.3 fL 35.1-43.9 Estimated glomerular filtrat ion rate (GFR) AmericanOrdered By: Antwon Peguero on 04-26-2024 Estimated GFR (MDRD) Amer 56 mL/min Low >60 Comment on above: GFR Calc Estimation of creatinine sammi aranceOrdered By: Antwon Peguero on 04-26-2024 Estimated Creatinine Clearance Calc 37.38 ml/min Glomerular filtration rate ( GFR) estimationOrdered By: Antwon Peguero on 04-26-2024 Estimated GFR (MDRD) Non-Af Amer 46 mL/min Low >60 Comment on above: Non- GFR Calc Glucose measurementOrdered B y: Antwon Peguero on 04-26-2024 Glucose [Mass/Vol] 123 mg/dL High 74-106 [facility] Comment on above: Fasting Glucose resu lt from 100 to 125 mg/dL suggests IMPAIRED HOMEOSTASIS per A.D.A. criteria. Hematocrit Auto (Bld) [Volum e fraction]Ordered By: Antwon Peguero on 04-26-2024 Hematocrit (Bld) [Volume fraction] 36.5 % Low 37-47 Hemoglobin measurementOrdere d By: Antwon Peguero on 04-26-2024 Hemoglobin (Bld) [Mass/Vol] 12.0 g/dL 12.0-15.0 Immature granulocytes/100 WB C Auto (Bld)Ordered By: Antwon Peguero on 04-26-2024 Immature granulocytes/100 WBC (Bld) 0.200 % 0.0-0.9 Comment on above: IG% - Immature Granu locytes (promyelocytes, myelocytes and metamyelocytes) > 1% indicates that a LEFT SHIFT is Present. Knee 3 Viewson 04-26-2024 Knee 3 Views [facility] Imaging Services [address], [place] [address] Knee 3 Views MR#: [id number] Acct: [id number] Name: EUGENIA MOMIN Rep #: [id number] : 1935 F 88 From: Joie louise MD PCP: Dr. Neville Serrano MD Status: ADM IN Study: Knee 3 Views Date of Exam: 04/26/24 Exam# [id number] Ordering Dr: Tien Varma MD [id number] HISTORY: right medial upper tibial pain. TECHNIQUE: XR Knee 3 Views. COMPARISON: None. FINDINGS: BONES : No acute fracture identified. Mineralization unremarkable. JOINTS: No dislocation. Mild degenerative change. Trace joint effusion. RAD/Knee 3 Views IMPRESSION: No acute fracture or dislocation identified in the right knee. Electronically Signed: Joie Salmon MD at 14:34 EST Reading Location ID and State: [facility] / [place] Tel , Service support , CC: Dr. Tien Varma MD; Dr. Neville Serrano MD Type Bar And Segment Assembler: Signed Normal Lymphocytes Auto (Unsp spec) [#/Vol]Ordered By: Antwon Peguero on 04-26-2024 Lymphocytes (Bld) [#/Vol] 2.69 10*3/uL 0.83-4.51 Lymphocytes/100 WBC Auto (Un sp spec)Ordered By: Antwon Peguero on 04-26-2024 Lymphocytes/100 WBC (Bld) 40.6 % 19-41 MCV (mean corpuscular volume ) determinationOrdered By: Antwon Peguero on 04-26-2024 MCV (RBC) [Entitic vol] 90.3 fL 81-99 [facility] Mean corpuscular hemoglobin (MCH) determinationOrdered By: Antwon Peguero on 04-26-2024 MCH (RBC) [Entitic mass] 29.7 pg 27.0-32.0 Mean corpuscular hemoglobin concentration (MCHC) determinationOrdered By: Antwon Peguero on 04-26-2024 MCHC (RBC) [Mass/Vol] 32.9 g/dL 32-36 [facility] Mean platelet volume determi nationOrdered By: Antwon Peguero on 04-26-2024 Platelet mean volume (Bld) [Entitic vol] 10.6 fL 6.2-12.0 Monocyte percentageOrdered B y: Antwon Peguero on 04-26-2024 Monocytes/100 WBC (Bld) 10.0 % 0-10 [facility] Neutrophil percentageOrdered By: Antwon Peguero on 04-26-2024 Neutrophils/100 WBC (Bld) 45.1 % Low 47-70 Nucleated red blood cell per centageOrdered By: Antwon Peguero on 04-26-2024 Nucleated RBC/100 WBC (Bld) [Ratio] 0 % 0-5 Platelet countOrdered By: Arline Peguero on 04-26-2024 Platelets (Bld) [#/Vol] 215 10*3/uL 150-450 Potassium measurementOrdered By: Antwon Peguero on 04-26-2024 Potassium [Moles/Vol] 3.2 mmol/L Low 3.5-5.1 [facility] RBC Auto (Bld) [#/Vol]Ordere d By: Antwon Peguero on 04-26-2024 RBC (Bld) [#/Vol] 4.04 10*6/uL Low 4.2-5.4 [facility] Serum anion gap measurementO rdered By: Antwon Peguero on 04-26-2024 Anion gap [Moles/Vol] 8 mmol/L 5-15 [facility] Serum or plasma calcium andreas urement (mass/volume)Ordered By: Antwon Peguero on 04-26-2024 Calcium [Mass/Vol] 8.2 mg/dL Low 8.5-10.1 [facility] Serum or plasma creatinine m easurement (mass/volume)Ordered By: Antwon Peguero on 04-26-2024 Creatinine [Mass/Vol] 1.17 mg/dL High 0.55-1.02 [facility] Comment on above: The validity of the calculated GFR & GFRAA in patients over 70 years has not been determined. Clinical correlation is essential. Serum or plasma urea nitroge n measurement (mass/volume)Ordered By: Antwon Peguero on 04-26-2024 Urea nitrogen [Mass/Vol] 33 mg/dL High 7-18 Sodium levelOrdered By: Norm Peguero on 04-26-2024 Sodium [Moles/Vol] 140 mmol/L 136-145 [facility] Venous Duplex US - Pedro Extre [facility] 04-26-2024 Venous Duplex US - Pedro Extrem [facility] Cardiovascular Services [address] [place] [address] Venous Duplex US - Pedro Extrem 04/26/24 1040 MR#: [id number] Acct: [id number] Name: EUGENIA MOMIN Rep #: [id number] : 1935 88 From: Zi Turner MD Attending Dr: Dr. Tien Varma MD Status: DIS IN Ordering Dr: Tien Varma MD Date: 04/26/24 Location: [facility] Sex: F C Admitted: 04/25/24 Reason For [...] preliminary report was called and/or faxed to DIRECTOR OF ANNUAL GIVINGOSMEL Uribe. VL/Venous Duplex US - Pedro Extrem [...] Date Dictated: 04/26/24 1040 Date Transcribed: 04/27/241732 Type Bar And Segment Assembler: Signed Normal White blood cell (WBC) count Ordered By: Antwon Peguero on 04-26-2024 WBC (Bld) [#/Vol] 6.6 10*3/uL 4.4-11.0 [facility] 12 Lead EKGon 04-25-2024 12 Lead EKG [facility] Cardiovascular Services [address] [place] [address] 12 Lead EKG 04/25/24 0501 MR#: [id number] Acct: [id number] Name: EUGENIA MOMIN Rep #: [id number] : 1935 88 From: Jeovanny Bal MD Attending Dr: Dr. Tien Varma MD Status: ADM IN Ordering Dr: Lucio Fonseca DO Date: 04/25/24 Location: [facility] Sex: F C Admitted: 04/25/24 Test Reason [...] Abnormal ECG Confirmed by VALERIANO BINGHAM, JEOVANNY ([id number]), supervising film or videotape editor EMILY CAMPO ([id number]) on 04/26/2024 6:33:49 AM Referred By: Antwon Peguero Confirmed By: JEOVANNY BAL MD 04/26/24 0633 Date Jeovanny Bal MD CC: Dr. Lucio Fonseca DO; Dr. Antwon Peguero MD; Dr. Tien Varma MD; Dr. Neville Serrano MD Signed Normal BNP (brain natriuretic pepti de measurement)Ordered By: Lucio Fonseca on 04-25-2024 Natriuretic peptide B (Bld) [Mass/Vol] 228.3 pg/mL High 0-100 BNP,B-Type NATRIURETIC PEPTI Omar 04-25-2024 Natriuretic peptide B (Bld) [Mass/Vol] 228.3 pg/mL High 0-100 Comment on above: Performed By: #### L 500.4050, L506.1001, L100.0100, L501.9520 #### Laboratory [address] [place], [address] Basic Metabolic Profile (BMP )on 04-25-2024 BUN/CRE 24.5 RATIO High 10-20 Comment on above: Order Comment: 'TROP ' Serial specimen #1, #2 or #3: 1 Performed By: #### L 500.4050, L506.1001, L100.0100, L501.9520 #### Laboratory [address] [place], [address] CA,Total 8.4 mg/dL Low 8.5-10.1 Comment on above: Order Comment: 'TROP ' Serial specimen #1, #2 or #3: 1 Performed By: #### L 500.4050, L506.1001, L100.0100, L501.9520 #### Laboratory [address] [place], [address] Chloride [Moles/Vol] 111 mmol/L High 98-107 [facility] Comment on above: Order Comment: 'TROP ' Serial specimen #1, #2 or #3: 1 Performed By: #### L 500.4050, L506.1001, L100.0100, L501.9520 #### Laboratory [address] [place], [address] CO2 [Moles/Vol] 22.0 mmol/L Normal 21.0-32.0 Comment on above: Order Comment: 'TROP ' Serial specimen #1, #2 or #3: 1 Performed By: #### L 500.4050, L506.1001, L100.0100, L501.9520 #### Laboratory [address] [place], [address] Creatinine [Mass/Vol] 1.39 mg/dL High 0.55-1.02 [facility] Comment on above: Order Comment: 'TROP ' Serial specimen #1, #2 or #3: 1 Result Comment: The validity of the calculated GFR GFRAA in patients over 70 years has not been determined. Clinical correlation is essential. Performed By: #### L 500.4050, L506.1001, L100.0100, L501.9520 #### Laboratory [address] [place], [address] ECRCL 31.37 ml/min Normal Comment on above: Order Comment: 'TROP ' Serial specimen #1, #2 or #3: 1 Performed By: #### L 500.4050, L506.1001, L100.0100, L501.9520 #### Laboratory [address] [place], [address] EST GFR - AA 46 mL/min Low >60 Comment on above: Order Comment: 'TROP ' Serial specimen #1, #2 or #3: 1 Result Comment: Afri can [place] GFR Calc Performed By: #### L 500.4050, L506.1001, L100.0100, L501.9520 #### Laboratory [address] [place], [address] GAP 5 Normal 5-15 Comment on above: Order Comment: 'TROP ' Serial specimen #1, #2 or #3: 1 Performed By: #### L 500.4050, L506.1001, L100.0100, L501.9520 #### Laboratory [address] [place], [address] GFR/1.73 sq M.predicted among non-blacks MDRD (S/P/Bld) [Vol rate/Area] 38 mL/min/{1.73_m2} Low >60 Comment on above: Order Comment: 'TROP ' Serial specimen #1, #2 or #3: 1 Result Comment: Non- GFR Calc Performed By: #### L 500.4050, L506.1001, L100.0100, L501.9520 #### Laboratory [address] [place], [address] Glucose [Mass/Vol] 134 mg/dL High 74-106 [facility] Comment on above: Order Comment: 'TROP ' Serial specimen #1, #2 or #3: 1 Result Comment: Fast ing Glucose result greater than or equal to 126 mg/dL suggests DIABETES MELLITUS per A.D.A. criteria. Performed By: #### L 500.4050, L506.1001, L100.0100, L501.9520 #### Laboratory [address] [place], [address] Potassium [Moles/Vol] 4.1 mmol/L Normal 3.5-5.1 [facility] Comment on above: Order Comment: 'TROP ' Serial specimen #1, #2 or #3: 1 Performed By: #### L 500.4050, L506.1001, L100.0100, L501.9520 #### Laboratory [address] [place], [address] Sodium [Moles/Vol] 138 mmol/L Normal 136-145 [facility] Comment on above: Order Comment: 'TROP ' Serial specimen #1, #2 or #3: 1 Performed By: #### L 500.4050, L506.1001, L100.0100, L501.9520 #### Laboratory [address] [place], [address] Urea nitrogen [Mass/Vol] 34 mg/dL High 7-18 Comment on above: Order Comment: 'TROP ' Serial specimen #1, #2 or #3: 1 Performed By: #### L 500.4050, L506.1001, L100.0100, L501.9520 #### Laboratory [address] [place], [address] Bilirubin, totalOrdered By: Lucio Fonseca on 04-25-2024 Bilirubin [Mass/Vol] 0.30 mg/dL 0.20-1.00 [facility] Comment on above: For patients on eltr ombopag therapy, use of Dimension [place] TBIL is not recommended. Bilirubin.direct [Mass/Vol]O rdered By: Lucio Fonseca on 04-25-2024 Direct Bilirubin < 0.05 mg/dL 0.00-0.30 [facility] CBC W/Diff, Automatedon 04-05 Absolute Lymph 1.24 X10 3/uL Normal 0.83-4.51 Comment on above: Performed By: #### L 500.4050, L506.1001, L100.0100, L501.9520 #### Laboratory [address] [place], [address] Absolute Neut 7.5 X10 3/uL Normal 2.0-7.7 Comment on above: Performed By: #### L 500.4050, L506.1001, L100.0100, L501.9520 #### [facility] Laboratory [address] [place], [address] Basophils/100 WBC (Bld) 0.6 % Normal 0-1 [facility] Comment on above: Performed By: #### L 500.4050, L506.1001, L100.0100, L501.9520 #### Laboratory [address] [place], [address] Eosinophils/100 WBC (Bld) 1.6 % Normal 0-5 Comment on above: Performed By: #### L 500.4050, L506.1001, L100.0100, L501.9520 #### Laboratory [address] [place], [address] Erythrocyte distribution width (RBC) [Ratio] 12.8 % Normal 11.6-14.6 Comment on above: Performed By: #### L 500.4050, L506.1001, L100.0100, L501.9520 #### Laboratory [address] [place], [address] Hematocrit (Bld) [Volume fraction] 40.1 % Normal 37-47 Comment on above: Performed By: #### L 500.4050, L506.1001, L100.0100, L501.9520 #### Laboratory [address] [place], [address] Hemoglobin (Bld) [Mass/Vol] 13.0 g/dL Normal 12.0-15.0 Comment on above: Performed By: #### L 500.4050, L506.1001, L100.0100, L501.9520 #### Laboratory [address] [place], [address] IG% 0.400 Normal 0.0-0.9 Comment on above: Result Comment: IG% - Immature Granulocytes (promyelocytes, myelocytes and metamyelocytes) > 1% indicates that a LEFT SHIFT is Present. Performed By: #### L 500.4050, L506.1001, L100.0100, L501.9520 #### Laboratory [address] [place], [address] Lymphocytes/100 WBC (Bld) 13.2 % Low 19-41 Comment on above: Performed By: #### L 500.4050, L506.1001, L100.0100, L501.9520 #### Laboratory [address] [place], [address] MCH (RBC) [Entitic mass] 30.0 pg Normal 27.0-32.0 Comment on above: Performed By: #### L 500.4050, L506.1001, L100.0100, L501.9520 #### Laboratory [address] [place], [address] MCHC (RBC) [Mass/Vol] 32.4 g/dL Normal 32-36 [facility] Comment on above: Performed By: #### L 500.4050, L506.1001, L100.0100, L501.9520 #### Laboratory [address] [place], [address] MCV (RBC) [Entitic vol] 92.4 fL Normal 81-99 [facility] Comment on above: Performed By: #### L 500.4050, L506.1001, L100.0100, L501.9520 #### Laboratory [address] [place], [address] Monocytes/100 WBC (Bld) 5.0 % Normal 0-10 [facility] Comment on above: Performed By: #### L 500.4050, L506.1001, L100.0100, L501.9520 #### Laboratory [address] [place], [address] Neutrophils/100 WBC (Bld) 79.2 % High 47-70 Comment on above: Performed By: #### L 500.4050, L506.1001, L100.0100, L501.9520 #### Laboratory [address] [place], [address] Nucleated RBC (Bld) [#/Vol] 0 10*3/uL Normal 0-5 Comment on above: Performed By: #### L 500.4050, L506.1001, L100.0100, L501.9520 #### Laboratory [address] [place], [address] Platelet mean volume (Bld) [Entitic vol] 10.3 fL Normal 6.2-12.0 Comment on above: Performed By: #### L 500.4050, L506.1001, L100.0100, L501.9520 #### Laboratory [address] [place], [address] Platelets (Bld) [#/Vol] 231 10*3/uL Normal 150-450 Comment on above: Performed By: #### L 500.4050, L506.1001, L100.0100, L501.9520 #### Laboratory [address] [place], [address] RBC (Bld) [#/Vol] 4.34 10*6/uL Normal 4.2-5.4 [facility] Comment on above: Performed By: #### L 500.4050, L506.1001, L100.0100, L501.9520 #### Laboratory [address] [place], [address] RDW SD 44.0 fl High 35.1-43.9 Comment on above: Performed By: #### L 500.4050, L506.1001, L100.0100, L501.9520 #### Laboratory [address] [place], [address] WBC (Bld) [#/Vol] 9.4 10*3/uL Normal 4.4-11.0 [facility] Comment on above: Performed By: #### L 500.4050, L506.1001, L100.0100, L501.9520 #### Laboratory [address] [place], [address] Chest 1 View (Portable)on Chest 1 View (Portable) [facility] Imaging Services [address] [place] [address] Chest 1 View (Portable) MR#: [id number] Acct: [id number] Name: EUGENIA MOMIN Rep #: [id number] : 1935 88 From: Wayne Zhou MD PCP: Dr. Neville Serrano MD Status: REG ER Study: Chest 1 View (Portable) Date of Exam: 04/25/24 Exam# [id number] Ordering Dr: Lucio Fonseca DO [id number] EXAM: XR CHEST, 1 VIEW CLINICAL INDICATION: [...] Lucio Fonseca DO; Dr. Neville Serrano MD Type Bar And Segment Assembler: Signed Normal Emergency Department Summary on 04-25-2024 Emergency Department Summary [facility] Medical Records Department [address] [place] [address] Emergency Department Summary 04/25/24 MR#: [id number] Acct: [id number] Name: EUGENIA MOMIN Rep #: [id number] : 1935 88 From: Lucio Fonseca DO PCP: Dr. Neville Serrano MD Status:ADM [place] Location: [address] History of Present Illness Chief Complaint: Shortness [...] rhinorrhea. Patient does not regularly weigh herself. [facility] Medical History (HFpEF) heart failure with preserved [...] Rate Respirato (more content not included)... Normal H AND P Exam - [facility] 04-25-2024 H&P Exam - Hospitalist [facility] Medical Records Department [address] [place] [address] H P Exam - Hospitalist 04/25/24612 MR#: [id number] Acct: [id number] Name: EUGENIA MOMIN Rep #: [id number] : 1935 88 From: Antwon Peguero MD [...] at baseline with a creatinine of 1.39. [facility] Medical History (HFpEF) heart failure with preserved [...] No appare (more content not included)... Normal [id number] 04-25-2024 TROPONIN-I HS 39 pg/mL Normal 3.0-54.0 Comment on above: Order Comment: 'TROP ' Serial specimen #1, #2 or #3: 1 Result Comment: Plea se Note: New Test Units and Gender Specific Reference Ranges. For more information see Policy Stat Procedure [place] High Sensitivity Troponin (TNIH) and attachments. Performed By: #### L 500.4050, L506.1001, L100.0100, L501.9520 #### Laboratory [address] [place], [address] Laboratory - Chemistry and C hemistry - challengeOrdered By: Lucio Fonseca on 04-25-2024 AST [Catalytic activity/Vol] 18 U/L 15-37 Liver Profileon 04-25-2024 Albumin [Mass/Vol] 3.2 g/dL Normal 3.2-5.0 [facility] Comment on above: Order Comment: 'TROP ' Serial specimen #1, #2 or #3: 1 Performed By: #### L 500.4050, L506.1001, L100.0100, L501.9520 #### Laboratory [address] [place], [address] ALK P 76 U/L Normal 45-117 Comment on above: Order Comment: 'TROP ' Serial specimen #1, #2 or #3: 1 Performed By: #### L 500.4050, L506.1001, L100.0100, L501.9520 #### Laboratory [address] [place], [address] ALT [Catalytic activity/Vol] 21 U/L Normal 13-56 Comment on above: Order Comment: 'TROP ' Serial specimen #1, #2 or #3: 1 Performed By: #### L 500.4050, L506.1001, L100.0100, L501.9520 #### Laboratory [address] [place], [address] AST [Catalytic activity/Vol] 18 U/L Normal 15-37 Comment on above: Order Comment: 'TROP ' Serial specimen #1, #2 or #3: 1 Performed By: #### L 500.4050, L506.1001, L100.0100, L501.9520 #### Laboratory [address] [place], [address] Bilirubin [Mass/Vol] 0.30 mg/dL Normal 0.20-1.00 [facility] Comment on above: Order Comment: 'TROP ' Serial specimen #1, #2 or #3: 1 Result Comment: For patients on eltrombopag therapy, use of Dimension [place] TBIL is not recommended. Performed By: #### L 500.4050, L506.1001, L100.0100, L501.9520 #### Laboratory [address] [place], [address] D BILI < 0.05 Normal 0.00-0.30 Comment on above: Order Comment: 'TROP ' Serial specimen #1, #2 or #3: 1 Performed By: #### L 500.4050, L506.1001, L100.0100, L501.9520 #### Laboratory [address] [place], [address] Globulin (S) [Mass/Vol] 3.4 g/dL Normal 2.2-4.2 [facility] Comment on above: Order Comment: 'TROP ' Serial specimen #1, #2 or #3: 1 Performed By: #### L 500.4050, L506.1001, L100.0100, L501.9520 #### Laboratory [address] [place], [address] T PROT 6.6 g/dL Normal 6.4-8.2 Comment on above: Order Comment: 'TROP ' Serial specimen #1, #2 or #3: 1 Performed By: #### L 500.4050, L506.1001, L100.0100, L501.9520 #### Laboratory [address] [place], [address] Serum globulin measurementOr dered By: Lucio Fonseca on 04-25-2024 Globulin (S) [Mass/Vol] 3.4 g/dL 2.2-4.2 [facility] Serum or plasma alanine gaspar otransferase (ALT) measurementOrdered By: Lucio Fonseca on 04-25-2024 ALT [Catalytic activity/Vol] 21 U/L 13-56 Serum or plasma albumin andreas urement (mass/volume)Ordered By: Lucio Fonseca on 04-25-2024 Albumin [Mass/Vol] 3.2 g/dL 3.2-5.0 [facility] Serum or plasma alkaline be sphatase measurementOrdered By: Lucio Aguirreehne on 04-25-2024 ALP [Catalytic activity/Vol] 76 U/L 45-117 Total proteinOrdered By: Andrei tena [place] on 04-25-2024 Protein [Mass/Vol] 6.6 g/dL 6.4-8.2 [facility] Troponin IOrdered By: Lucio Aguirreehne on 04-25-2024 Troponin I High Sensitivity 39 pg/mL 3.0-54.0 Comment on above: Please Note: New Teresa t Units and Gender Specific Reference Ranges. For more information see Policy Stat Procedure [place] High Sensitivity Troponin (TNIH) and attachments. Absolute lymphocyte countOrd ered By: Lucio Aguirreehne on 08-13-2023 Lymphocytes Auto (Unsp spec) [#/Vol] 1.54 10*3/uL 0.83-4.51 Automated lymphocyte count a s percentage of total leukocytesOrdered By: Lucio Raymundo on 08-13-2023 Lymphocytes/100 WBC Auto (Unsp spec) 24.2 % 19-41 Basophil percentageOrdered B y: Lucio Aguirreehne on 08-13-2023 Basophil percentage 0 SEEN /hpf 0-5 [facility] Basophils/100 WBC (Bld) 0.6 % 0-1 [facility] Bilirubin [Mass/Vol] 0.50 mg/dL 0.20-1.00 [facility] Comment on above: For patients on eltr ombopag therapy, use of Dimension [place] TBIL is not recommended. Chloride [Moles/Vol] 105 mmol/L 98-107 [facility] Eosinophils/100 WBC (Bld) 0.8 % 0-5 Glucose [Mass/Vol] 150 mg/dL 74-106 [facility] Comment on above: Fasting Glucose resu lt greater than or equal to 126 mg/dL suggests DIABETES MELLITUS per A.D.A. criteria. Hemoglobin (Bld) [Mass/Vol] 12.6 g/dL 12.0-15.0 Monocytes/100 WBC (Bld) 5.7 % 0-10 [facility] Neutrophils (Bld) [#/Vol] 4.4 10*3/uL 2.0-7.7 Neutrophils/100 WBC (Bld) 68.4 % 47-70 Potassium [Moles/Vol] 3.5 mmol/L 3.5-5.1 [facility] Protein [Mass/Vol] 7.0 g/dL 6.4-8.2 [facility] Sodium [Moles/Vol] 134 mmol/L 136-145 [facility] WBC (Bld) [#/Vol] 6.4 10*3/uL 4.4-11.0 [facility] Bilirubin Test strip Ql (U)O rdered By: Lucio Fonseca on 08-13-2023 Bilirubin Ql (U) Negative Negative Determination of erythrocyte mean corpuscular volume (MCV)Ordered By: Lucio Fonseca on 08-13-2023 MCV (RBC) [Entitic vol] 87.1 fL 81-99 [facility] Direct bilirubinOrdered By: Lucio Fonseca on 08-13-2023 Bilirubin.direct [Mass/Vol] 0.12 mg/dL 0.00-0.30 Erythrocyte distribution wid th ratioOrdered By: Lucio Fonseca on 08-13-2023 Erythrocyte distribution width (RBC) [Ratio] 12.6 % 11.6-14.6 Erythrocyte distribution wid th standard deviationOrdered By: Lucio Fonseca on 08-13-2023 Erythrocyte distribution width (RBC) [Entitic vol] 40.3 fL 35.1-43.9 Hematocrit Auto (Bld) [Volum e fraction]Ordered By: Lucio Fonseca on 08-13-2023 Hematocrit (Bld) [Volume fraction] 38.4 % 37-47 Immature granulocytes/100 WB C Auto (Bld)Ordered By: Lucio Fonseca on 08-13-2023 Immature granulocytes/100 WBC (Bld) 0.300 % 0.0-0.9 Comment on above: IG% - Immature Granu locytes (promyelocytes, myelocytes and metamyelocytes) > 1% indicates that a LEFT SHIFT is Present. Ketones Test strip Ql (U)Ord ered By: Lucio Fonseca on 08-13-2023 Ketones Ql (U) 5 mg/dl Negative Laboratory - Chemistry and C hemistry - challengeOrdered By: Lucio Fonseca on 08-13-2023 ALP [Catalytic activity/Vol] 86 U/L 45-117 ALT [Catalytic activity/Vol] 22 U/L 13-56 CO2 [Moles/Vol] 22.0 mmol/L 21.0-32.0 Globulin (S) [Mass/Vol] 3.8 g/dL 2.2-4.2 [facility] Lipase [Catalytic activity/Vol] 49 U/L 13-75 Comment on above: Please note:LIPASE r evised reference range effective 22. New Lipase methodology. Expected to produce lower values than the previous assay method. NEW Reference Range: 13 - 75 U/L Urea nitrogen/Creatinine [Mass ratio] 15.7 mg/mg 10-20 Laboratory - Hematology and Cell countsOrdered By: Lucio Fonseca on 08-13-2023 MCH (RBC) [Entitic mass] 28.6 pg 27.0-32.0 MCHC (RBC) [Mass/Vol] 32.8 g/dL 32-36 [facility] Nucleated RBC/100 WBC (Bld) [Ratio] 0 % 0-5 Platelet mean volume (Bld) [Entitic vol] 10.8 fL 6.2-12.0 Platelets (Bld) [#/Vol] 211 10*3/uL 150-450 Laboratory - Microbiology an d Antimicrobial susceptibilityOrdered By: Lucio Fonseca on 08-13-2023 SARS-CoV-2 (COVID-19) RNA NICHOLE+probe Ql (Unsp spec) Mucus LM Ql (Urine sed)Order ed By: Lucio Fonseca on 08-13-2023 Mucus Ql (Urine sed) 0 SEEN /hpf [facility] Nitrite Test strip Ql (U)Ord ered By: Lucio Fonseca on 08-13-2023 Nitrite Ql (U) Negative Negative No Panel InformationOrdered By: Lucio Fonseca on 08-13-2023 Urine RBC 0 SEEN /hpf 0-5 Estimated Creatinine Clearance Calc 39.39 ml/min Estimated GFR (MDRD) Amer 57 mL/min >60 Comment on above: GFR Calc Estimated GFR (MDRD) Non-Af Amer 47 mL/min >60 Comment on above: Non- GFR Calc Troponin I High Sensitivity 51 pg/mL 3.0-54.0 Comment on above: Please Note: New Teresa t Units and Gender Specific Reference Ranges. For more information see Policy Stat Procedure [place] High Sensitivity Troponin (TNIH) and attachments. Protein Test strip Ql (U)Ord ered By: Lucio Fonseca on 08-13-2023 Protein Ql (U) 15 mg/dl Negative RBC Auto (Bld) [#/Vol]Ordere d By: Lucio Fonseca on 08-13-2023 RBC (Bld) [#/Vol] 4.41 10*6/uL 4.2-5.4 [facility] Serum or plasma calcium andreas urement (mass/volume)Ordered By: Lucio Fonseca on 08-13-2023 Calcium [Mass/Vol] 8.6 mg/dL 8.5-10.1 [facility] Serum or plasma creatinine m easurement (mass/volume)Ordered By: Lucio Fonseca on 08-13-2023 Creatinine [Mass/Vol] 1.15 mg/dL 0.55-1.02 [facility] Comment on above: The validity of the calculated GFR & GFRAA in patients over 70 years has not been determined. Clinical correlation is essential. Serum or plasma urea nitroge n measurement (mass/volume)Ordered By: Lucio Fonseca on 08-13-2023 Urea nitrogen [Mass/Vol] 18 mg/dL 7-18 Squamous epithelial cells de tection in urine sediment by light microscopyOrdered By: Lucio Fonseca on 08-13-2023 Epithelial cells.squamous LM Ql (Urine sed) 0 SEEN /hpf 5-10 Thin prep Papanicolaou smear with manual screeningOrdered By: Lucio Fonseca on 08-13-2023 Thin prep Papanicolaou smear with manual screening 3.2 g/dL 3.2-5.0 Thin prep Papanicolaou smear with manual screening 18 U/L 15-37 Thin prep Papanicolaou smear with manual screening 7 5-15 Urine blood detectionOrdered By: Lucio Fonseca on 08-13-2023 RBC Ql (U) 50 /ul Negative Urine clarityOrdered By: Andrei Fonseca on 08-13-2023 Clarity (U) Clear Clear Urine color determinationOrd ered By: Lucio Fonseca on 08-13-2023 Color (U) Yellow Yellow Urine glucose detectionOrder ed By: Lucio Fonseca on 08-13-2023 Glucose Ql (U) Normal mg/dl Normal Urine leukocyte esterase det ection by dipstickOrdered By: Lucio Fonseca on 08-13-2023 Leukocyte esterase Test strip Ql (U) Negative Negative Urine pHOrdered By: Lucio boss on 08-13-2023 pH (U) 5.0 [pH] 5.0 - 8.0 Urine sediment bacteria coun t by microscopy (number/high power field)Ordered By: Lucio Fonseca on 08-13-2023 Bacteria LM.HPF (Urine sed) [#/Area] 0 /[HPF] None Seen Urine specific gravity measu rementOrdered By: Lucio Fonseca on 08-13-2023 Specific gravity (U) [Rel density] 1.020 1.002-1.030 Urine urobilinogen measureme ntOrdered By: Lucio Fonseca on 08-13-2023 Urobilinogen Ql (U) Normal mg/dl Normal [facility] Absolute lymphocyte countOrd ered By: Neville Serrano on 06-09-2023 Lymphocytes Auto (Unsp spec) [#/Vol] 2.56 10*3/uL 0.83-4.51 Automated lymphocyte count a s percentage of total leukocytesOrdered By: Neville Serrano on 06-09-2023 Lymphocytes/100 WBC Auto (Unsp spec) 37.5 % 19-41 Basophil percentageOrdered B y: Neville Serrano on 06-09-2023 Basophils/100 WBC (Bld) 1.0 % 0-1 [facility] Bilirubin [Mass/Vol] 0.20 mg/dL 0.20-1.00 [facility] Comment on above: For patients on eltr ombopag therapy, use of Dimension [place] TBIL is not recommended. Chloride [Moles/Vol] 106 mmol/L 98-107 [facility] Eosinophils/100 WBC (Bld) 5.7 % 0-5 Glucose [Mass/Vol] 127 mg/dL 74-106 [facility] Comment on above: Fasting Glucose resu lt greater than or equal to 126 mg/dL suggests DIABETES MELLITUS per A.D.A. criteria. Hemoglobin (Bld) [Mass/Vol] 12.6 g/dL 12.0-15.0 Monocytes/100 WBC (Bld) 7.8 % 0-10 [facility] Neutrophils (Bld) [#/Vol] 3.3 10*3/uL 2.0-7.7 Neutrophils/100 WBC (Bld) 47.7 % 47-70 Potassium [Moles/Vol] 3.9 mmol/L 3.5-5.1 [facility] Protein [Mass/Vol] 7.8 g/dL 6.4-8.2 [facility] Sodium [Moles/Vol] 137 mmol/L 136-145 [facility] WBC (Bld) [#/Vol] 6.8 10*3/uL 4.4-11.0 [facility] Determination of erythrocyte mean corpuscular volume (MCV)Ordered By: Neville Serrano on 06-09-2023 MCV (RBC) [Entitic vol] 89.9 fL 81-99 [facility] Erythrocyte distribution wid th ratioOrdered By: Neville Serrano on 06-09-2023 Erythrocyte distribution width (RBC) [Ratio] 12.6 % 11.6-14.6 Erythrocyte distribution wid th standard deviationOrdered By: Neville Serrano on 06-09-2023 Erythrocyte distribution width (RBC) [Entitic vol] 41.6 fL 35.1-43.9 Hematocrit Auto (Bld) [Volum e fraction]Ordered By: Neville Serrano on 06-09-2023 Hematocrit (Bld) [Volume fraction] 38.3 % 37-47 Immature granulocytes/100 WB C Auto (Bld)Ordered By: Neville Serrano on 06-09-2023 Immature granulocytes/100 WBC (Bld) 0.300 % 0.0-0.9 Comment on above: IG% - Immature Granu locytes (promyelocytes, myelocytes and metamyelocytes) > 1% indicates that a LEFT SHIFT is Present. Laboratory - Chemistry and C hemistry - challengeOrdered By: Neville Serrano on 06-09-2023 Albumin/Globulin [Mass ratio] 0.7 {ratio} 0.9-2.4 ALP [Catalytic activity/Vol] 106 U/L 45-117 ALT [Catalytic activity/Vol] 32 U/L 13-56 CO2 [Moles/Vol] 22.0 mmol/L 21.0-32.0 Globulin (S) [Mass/Vol] 4.6 g/dL 2.2-4.2 [facility] Urea nitrogen/Creatinine [Mass ratio] 19.6 mg/mg 10-20 Laboratory - Hematology and Cell countsOrdered By: Neville Serrano on 06-09-2023 MCH (RBC) [Entitic mass] 29.6 pg 27.0-32.0 MCHC (RBC) [Mass/Vol] 32.9 g/dL 32-36 [facility] Nucleated RBC/100 WBC (Bld) [Ratio] 0 % 0-5 Platelets (Bld) [#/Vol] 271 10*3/uL 150-450 No Panel InformationOrdered By: Neville Serrano on 06-09-2023 Estimated GFR (MDRD) Amer 47 mL/min >60 Comment on above: GFR Calc Estimated GFR (MDRD) Non-Af Amer 38 mL/min >60 Comment on above: Non- GFR Calc Vitamin D 25-Hydroxy 18.4 ng/mL [facility] Comment on above: Vitamin D 25(OH) Sta tus Range Deficiency <20 ng/mL (50nmol/L) Insufficiency 20 - 30 ng/mL (50 - 75 nmol/L) Sufficiency 30 - 100 ng/mL (75 - 250 nmol/L) Toxicity >100 ng/mL (>250 nmol/L) Platelet mean volume [place] ker (Bld) [Entitic vol]Ordered By: Neville Serrano on 06-09-2023 Platelet mean volume (Bld) [Entitic vol] 10.5 fL 6.2-12.0 RBC Auto (Bld) [#/Vol]Ordere d By: Neville Serrano on 06-09-2023 RBC (Bld) [#/Vol] 4.26 10*6/uL 4.2-5.4 [facility] Serum or plasma calcium andreas urement (mass/volume)Ordered By: Neville Serrano on 06-09-2023 Calcium [Mass/Vol] 8.8 mg/dL 8.5-10.1 [facility] Serum or plasma creatinine m easurement (mass/volume)Ordered By: Neville Serrano on 06-09-2023 Creatinine [Mass/Vol] 1.38 mg/dL 0.55-1.02 [facility] Comment on above: The validity of the calculated GFR & GFRAA in patients over 70 years has not been determined. Clinical correlation is essential. Serum or plasma thyroid stim ulating hormone (TSH) measurement (units/volume)Ordered By: Neville Serrano on 06-09-2023 TSH Qn 2.23 uIU/mL 0.358-3.74 Serum or plasma urea nitroge n measurement (mass/volume)Ordered By: Neville Serrano on 06-09-2023 Urea nitrogen [Mass/Vol] 27 mg/dL 7-18 Thin prep Papanicolaou smear with manual screeningOrdered By: Neville Serrano 06-09-2023 Thin prep Papanicolaou smear with manual screening 3.2 g/dL 3.2-5.0 Thin prep Papanicolaou smear with manual screening 12 U/L 15-37 Thin prep Papanicolaou smear with manual screening 9 5-15 Absolute lymphocyte countOrd ered By: Marina Rogers on 03-08-2023 Lymphocytes Auto (Unsp spec) [#/Vol] 1.65 10*3/uL 0.83-4.51 Basophil percentageOrdered B y: John Pickett on 03-08-2023 Basophil percentage 3.6 mg/dL 2.5-4.9 [facility] Chloride [Moles/Vol] 104 mmol/L 98-107 [facility] Glucose [Mass/Vol] 108 mg/dL 74-106 [facility] Comment on above: Fasting Glucose resu lt from 100 to 125 mg/dL suggests IMPAIRED HOMEOSTASIS per A.D.A. criteria. Potassium [Moles/Vol] 3.9 mmol/L 3.5-5.1 [facility] Sodium [Moles/Vol] 138 mmol/L 136-145 [facility] Basophil percentageOrdered B y: Marina Rogers on 03-08-2023 Basophils/100 WBC (Bld) 1.0 % 0-1 [facility] Bilirubin [Mass/Vol] 0.40 mg/dL 0.20-1.00 [facility] Comment on above: For patients on eltr ombopag therapy, use of Dimension [place] TBIL is not recommended. Eosinophils/100 WBC (Bld) 3.9 % 0-5 Neutrophils (Bld) [#/Vol] 3.6 10*3/uL 2.0-7.7 Neutrophils/100 WBC (Bld) 58.9 % 47-70 Protein [Mass/Vol] 6.6 g/dL 6.4-8.2 [facility] WBC (Bld) [#/Vol] 6.1 10*3/uL 4.4-11.0 [facility] Blood erythrocytes count (nu mber/volume)Ordered By: Marina Rogers on 03-08-2023 RBC (Bld) [#/Vol] 3.94 10*6/uL 4.2-5.4 [facility] Blood hemoglobin measurement (mass/volume)Ordered By: Marina Rogers on 03-08-2023 Hemoglobin (Bld) [Mass/Vol] 12.0 g/dL 12.0-15.0 Blood lymphocytes/100 leukoc ytesOrdered By: Marina Rogers on 03-08-2023 Lymphocytes/100 WBC (Bld) 27.0 % 19-41 Blood monocytes/100 leukocyt esOrdered By: Marina Rogers on 03-08-2023 Monocytes/100 WBC (Bld) 8.9 % 0-10 [facility] Blood platelet mean volumeOr dered By: Marina Rogesr on 03-08-2023 Platelet mean volume (Bld) [Entitic vol] 11.6 fL 6.2-12.0 Determination of erythrocyte mean corpuscular volume (MCV)Ordered By: Marina Rogers on 03-08-2023 MCV (RBC) [Entitic vol] 92.1 fL 81-99 [facility] Hematocrit Auto (Bld) [Volum e fraction]Ordered By: Marina Rogers on 03-08-2023 Hematocrit (Bld) [Volume fraction] 36.3 % 37-47 Laboratory - Chemistry and C hemistry - challengeOrdered By: Marina Ken on 03-08-2023 ALP [Catalytic activity/Vol] 83 U/L 45-117 ALT [Catalytic activity/Vol] 22 U/L 13-56 Globulin (S) [Mass/Vol] 3.6 g/dL 2.2-4.2 [facility] Laboratory - Chemistry and C hemistry - challengeOrdered By: John Pickett on 03-08-2023 CO2 [Moles/Vol] 27.0 mmol/L 21.0-32.0 Magnesium [Mass/Vol] 2.1 mg/dL 1.6-2.6 [facility] Urea nitrogen/Creatinine [Mass ratio] 23.3 mg/mg 10-20 Laboratory - Hematology and Cell countsOrdered By: Marina Ken on 03-08-2023 Erythrocyte distribution width (RBC) [Entitic vol] 43.4 fL 35.1-43.9 Erythrocyte distribution width (RBC) [Ratio] 12.8 % 11.6-14.6 Immature granulocytes/100 WBC (Bld) 0.300 % 0.0-0.9 Comment on above: IG% - Immature Granu locytes (promyelocytes, myelocytes and metamyelocytes) > 1% indicates that a LEFT SHIFT is Present. MCH (RBC) [Entitic mass] 30.5 pg 27.0-32.0 Nucleated RBC/100 WBC (Bld) [Ratio] 0 % 0-5 [facility] Auto (RBC) [Mass/Vol]Or dered By: Marina Rogers on 03-08-2023 MCHC (RBC) [Mass/Vol] 33.1 g/dL 32-36 [facility] No Panel InformationOrdered By: John Pickett on 03-08-2023 Estimated Creatinine Clearance Calc 21.86 ml/min Estimated GFR (MDRD) Amer 42 mL/min >60 Comment on above: GFR Calc Estimated GFR (MDRD) Non-Af Amer 35 mL/min >60 Comment on above: Non- GFR Calc No Panel InformationOrdered By: Marina Rogers on 03-08-2023 Thyroid Stimulating Hormone (TSH) 6.73 uIU/mL 0.358-3.74 Platelets bldOrdered By: Therese Rogers on 03-08-2023 Platelets (Bld) [#/Vol] 244 10*3/uL 150-450 Serum or plasma albumin andreas urement (mass/volume)Ordered By: Marina Rogers on 03-08-2023 Albumin [Mass/Vol] 3.0 g/dL 3.2-5.0 [facility] Serum or plasma albumin/glob ulin mass ratioOrdered By: Marina Rogers on 03-08-2023 Albumin/Globulin [Mass ratio] 0.8 {ratio} 0.9-2.4 Serum or plasma calcium andreas urement (mass/volume)Ordered By: John Pickett on 03-08-2023 Calcium [Mass/Vol] 8.6 mg/dL 8.5-10.1 [facility] Serum or plasma creatinine m easurement (mass/volume)Ordered By: John Pickett on 03-08-2023 Creatinine [Mass/Vol] 1.50 mg/dL 0.55-1.02 [facility] Comment on above: The validity of the calculated GFR & GFRAA in patients over 70 years has not been determined. Clinical correlation is essential. Serum or plasma urea nitroge n measurement (mass/volume)Ordered By: John Pickett on 03-08-2023 Urea nitrogen [Mass/Vol] 35 mg/dL 7-18 Thin prep Papanicolaou smear with manual screeningOrdered By: Marina Rogers on 03-08-2023 Thin prep Papanicolaou smear with manual screening 15 U/L 15-37 Thin prep Papanicolaou smear with manual screeningOrdered By: John Pickett on 03-08-2023 Thin prep Papanicolaou smear with manual screening 7 5-15 Absolute lymphocyte countOrd ered By: Tomer Irvin on 03-07-2023 Lymphocytes Auto (Unsp spec) [#/Vol] 1.56 10*3/uL 0.83-4.51 Basophil percentageOrdered B y: Tomer Irvin on 03-07-2023 Basophils/100 WBC (Bld) 0.5 % 0-1 [facility] Chloride [Moles/Vol] 111 mmol/L 98-107 [facility] Eosinophils/100 WBC (Bld) 2.1 % 0-5 Glucose [Mass/Vol] 108 mg/dL 74-106 [facility] Comment on above: Fasting Glucose resu lt from 100 to 125 mg/dL suggests IMPAIRED HOMEOSTASIS per A.D.A. criteria. Neutrophils (Bld) [#/Vol] 8.3 10*3/uL 2.0-7.7 Neutrophils/100 WBC (Bld) 76.3 % 47-70 Potassium [Moles/Vol] 4.3 mmol/L 3.5-5.1 [facility] Sodium [Moles/Vol] 137 mmol/L 136-145 [facility] WBC (Bld) [#/Vol] 10.8 10*3/uL 4.4-11.0 [facility] Blood erythrocytes count (nu mber/volume)Ordered By: Tomer Irvin on 03-07-2023 RBC (Bld) [#/Vol] 3.59 10*6/uL 4.2-5.4 [facility] Blood hemoglobin measurement (mass/volume)Ordered By: Tomer Irvin on 03-07-2023 Hemoglobin (Bld) [Mass/Vol] 10.7 g/dL 12.0-15.0 Blood lymphocytes/100 leukoc ytesOrdered By: Tomer Irvin on 03-07-2023 Lymphocytes/100 WBC (Bld) 14.4 % 19-41 Blood monocytes/100 leukocyt esOrdered By: Tomer Irvin on 03-07-2023 Monocytes/100 WBC (Bld) 6.2 % 0-10 [facility] Blood platelet mean volumeOr dered By: Tomer Irvin on 03-07-2023 Platelet mean volume (Bld) [Entitic vol] 11.5 fL 6.2-12.0 Determination of erythrocyte mean corpuscular volume (MCV)Ordered By: Tomer Irvin on 03-07-2023 MCV (RBC) [Entitic vol] 91.9 fL 81-99 [facility] Hematocrit Auto (Bld) [Volum e fraction]Ordered By: Tomer Irvin on 03-07-2023 Hematocrit (Bld) [Volume fraction] 33.0 % 37-47 Iron measurement (mass/mass) Ordered By: Marina Rogers on 03-07-2023 Iron (Unsp spec) [Mass/Mass] 48 ug/dL 50-170 Laboratory - Chemistry and C hemistry - challengeOrdered By: Tomer Irvin on 03-07-2023 CO2 [Moles/Vol] 20.0 mmol/L 21.0-32.0 Urea nitrogen/Creatinine [Mass ratio] 18.5 mg/mg 10-20 Laboratory - Chemistry and C hemistry - challengeOrdered By: Marina Rogers on 03-07-2023 Magnesium [Mass/Vol] 2.0 mg/dL 1.6-2.6 [facility] Natriuretic peptide B (Bld) [Mass/Vol] 969.7 pg/mL 0-100 Laboratory - CoagulationOrde red By: Tomer Irvin on 03-07-2023 aPTT Coag (Bld) [Time] 23.0 s 24.1-36.2 [facility] Laboratory - Hematology and Cell countsOrdered By: Tomer Irvin on 03-07-2023 Erythrocyte distribution width (RBC) [Entitic vol] 41.7 fL 35.1-43.9 Erythrocyte distribution width (RBC) [Ratio] 12.5 % 11.6-14.6 Immature granulocytes/100 WBC (Bld) 0.500 % 0.0-0.9 Comment on above: IG% - Immature Granu locytes (promyelocytes, myelocytes and metamyelocytes) > 1% indicates that a LEFT SHIFT is Present. MCH (RBC) [Entitic mass] 29.8 pg 27.0-32.0 Nucleated RBC/100 WBC (Bld) [Ratio] 0 % 0-5 [facility] Auto (RBC) [Mass/Vol]Or dered By: Tomer Irvin on 03-07-2023 MCHC (RBC) [Mass/Vol] 32.4 g/dL 32-36 [facility] No Panel InformationOrdered By: Marina Rogers on 03-07-2023 Troponin I High Sensitivity 707 pg/mL 3.0-54.0 Comment on above: Critical Result(s) C alled at: 12:03:27 03/07/2023 by: Rajani Donohue. Results read back by same. Please Note: New Test Units and Gender Specific Reference Ranges. For more information see Policy Stat Procedure [place] High Sensitivity Troponin (TNIH) and attachments. Total Iron Binding Capacity 335 ug/dL 250-450 No Panel InformationOrdered By: Tomer Irvin on 03-07-2023 Troponin I High Sensitivity 763 pg/mL 3.0-54.0 Comment on above: Critical Result(s) C alled at: 07:56:28 03/07/2023 by: Rajani Villarreal. Results read back by same. Please Note: New Test Units and Gender Specific Reference Ranges. For more information see Policy Stat Procedure [place] High Sensitivity Troponin (TNIH) and attachments. Estimated Creatinine Clearance Calc 18.42 ml/min Estimated GFR (MDRD) Amer 35 mL/min >60 Comment on above: GFR Calc Estimated GFR (MDRD) Non-Af Amer 29 mL/min >60 Comment on above: Non- GFR Calc Platelets bldOrdered By: Andry Irvin on 03-07-2023 Platelets (Bld) [#/Vol] 208 10*3/uL 150-450 Serum or plasma calcium andreas urement (mass/volume)Ordered By: Tomer Irvin on 03-07-2023 Calcium [Mass/Vol] 8.4 mg/dL 8.5-10.1 [facility] Serum or plasma creatinine m easurement (mass/volume)Ordered By: Tomer Irvin on 03-07-2023 Creatinine [Mass/Vol] 1.78 mg/dL 0.55-1.02 [facility] Comment on above: The validity of the calculated GFR & GFRAA in patients over 70 years has not been determined. Clinical correlation is essential. Serum or plasma ferritin christina surement (mass/volume)Ordered By: Marina Rogers on 03-07-2023 Ferritin [Mass/Vol] 212 ng/mL 8-252 [facility] Serum or plasma iron saturat ion measurement (mass fraction)Ordered By: Marina Rogers on 03-07-2023 Iron saturation [Mass fraction] 14.3 % 15.0-55.0 Serum or plasma urea nitroge n measurement (mass/volume)Ordered By: Tomer Irvin on 03-07-2023 Urea nitrogen [Mass/Vol] 33 mg/dL 7-18 Thin prep Papanicolaou smear with manual screeningOrdered By: Tomer Irvin on 03-07-2023 Thin prep Papanicolaou smear with manual screening 6 5-15 Absolute lymphocyte countOrd ered By: Antwon Peguero on 03-04-2023 Lymphocytes Auto (Unsp spec) [#/Vol] 1.94 10*3/uL 0.83-4.51 Basophil percentageOrdered B y: Antwon Peguero on 03-04-2023 Basophils/100 WBC (Bld) 0.7 % 0-1 [facility] Eosinophils/100 WBC (Bld) 3.7 % 0-5 Neutrophils (Bld) [#/Vol] 4.0 10*3/uL 2.0-7.7 Neutrophils/100 WBC (Bld) 58.0 % 47-70 WBC (Bld) [#/Vol] 6.8 10*3/uL 4.4-11.0 [facility] Basophil percentageOrdered B y: Connie Cortez on 03-04-2023 Bilirubin [Mass/Vol] 0.20 mg/dL 0.20-1.00 [facility] Comment on above: For patients on eltr ombopag therapy, use of Dimension [place] TBIL is not recommended. Chloride [Moles/Vol] 113 mmol/L 98-107 [facility] Glucose [Mass/Vol] 112 mg/dL 74-106 [facility] Comment on above: Fasting Glucose resu lt from 100 to 125 mg/dL suggests IMPAIRED HOMEOSTASIS per A.D.A. criteria. Potassium [Moles/Vol] 4.3 mmol/L 3.5-5.1 [facility] Protein [Mass/Vol] 6.1 g/dL 6.4-8.2 [facility] Sodium [Moles/Vol] 139 mmol/L 136-145 [facility] Blood erythrocytes count (nu mber/volume)Ordered By: Antwon Peguero on 03-04-2023 RBC (Bld) [#/Vol] 3.57 10*6/uL 4.2-5.4 [facility] Blood hemoglobin measurement (mass/volume)Ordered By: Antwon Peguero on 03-04-2023 Hemoglobin (Bld) [Mass/Vol] 10.6 g/dL 12.0-15.0 Blood lymphocytes/100 leukoc ytesOrdered By: Antwon Peguero on 03-04-2023 Lymphocytes/100 WBC (Bld) 28.5 % 19-41 Blood monocytes/100 leukocyt esOrdered By: Antwon Peguero on 03-04-2023 Monocytes/100 WBC (Bld) 8.8 % 0-10 [facility] Blood platelet mean volumeOr dered By: Antwon Peguero on 03-04-2023 Platelet mean volume (Bld) [Entitic vol] 11.4 fL 6.2-12.0 Determination of erythrocyte mean corpuscular volume (MCV)Ordered By: Antwon Peguero on 03-04-2023 MCV (RBC) [Entitic vol] 95.0 fL 81-99 [facility] Hematocrit Auto (Bld) [Volum e fraction]Ordered By: Antwon Peguero on 03-04-2023 Hematocrit (Bld) [Volume fraction] 33.9 % 37-47 Laboratory - Chemistry and C hemistry - challengeOrdered By: Connie Cortez on 03-04-2023 ALP [Catalytic activity/Vol] 74 U/L 45-117 ALT [Catalytic activity/Vol] 20 U/L 13-56 CO2 [Moles/Vol] 24.0 mmol/L 21.0-32.0 Globulin (S) [Mass/Vol] 3.5 g/dL 2.2-4.2 [facility] Urea nitrogen/Creatinine [Mass ratio] 25.4 mg/mg 10-20 Laboratory - Hematology and Cell countsOrdered By: Antwon Peguero on 03-04-2023 Erythrocyte distribution width (RBC) [Entitic vol] 44.9 fL 35.1-43.9 Erythrocyte distribution width (RBC) [Ratio] 13.0 % 11.6-14.6 Immature granulocytes/100 WBC (Bld) 0.300 % 0.0-0.9 Comment on above: IG% - Immature Granu locytes (promyelocytes, myelocytes and metamyelocytes) > 1% indicates that a LEFT SHIFT is Present. MCH (RBC) [Entitic mass] 29.7 pg 27.0-32.0 Nucleated RBC/100 WBC (Bld) [Ratio] 0 % 0-5 MCHC Auto (RBC) [Mass/Vol]Or dered By: Antwon Peguero on 03-04-2023 MCHC (RBC) [Mass/Vol] 31.3 g/dL 32-36 [facility] No Panel InformationOrdered By: Connie Cortez on 03-04-2023 Estimated Creatinine Clearance Calc 25.22 ml/min Estimated GFR (MDRD) Amer 50 mL/min >60 Comment on above: GFR Calc Estimated GFR (MDRD) Non-Af Amer 41 mL/min >60 Comment on above: Non- GFR Calc Platelets bldOrdered By: Gerson Peguero on 03-04-2023 Platelets (Bld) [#/Vol] 181 10*3/uL 150-450 Serum or plasma albumin andreas urement (mass/volume)Ordered By: Connie Cortez on 03-04-2023 Albumin [Mass/Vol] 2.6 g/dL 3.2-5.0 [facility] Serum or plasma albumin/glob ulin mass ratioOrdered By: Connie Cortez on 03-04-2023 Albumin/Globulin [Mass ratio] 0.7 {ratio} 0.9-2.4 Serum or plasma calcium andreas urement (mass/volume)Ordered By: Connie Cortez on 03-04-2023 Calcium [Mass/Vol] 8.1 mg/dL 8.5-10.1 [facility] Serum or plasma creatinine m easurement (mass/volume)Ordered By: Connie Cortez on 03-04-2023 Creatinine [Mass/Vol] 1.30 mg/dL 0.55-1.02 [facility] Comment on above: The validity of the calculated GFR & GFRAA in patients over 70 years has not been determined. Clinical correlation is essential. Serum or plasma urea nitroge n measurement (mass/volume)Ordered By: Connie Cortez on 03-04-2023 Urea nitrogen [Mass/Vol] 33 mg/dL 7-18 Thin prep Papanicolaou smear with manual screeningOrdered By: Connie Cortez on 03-04-2023 Thin prep Papanicolaou smear with manual screening 27 U/L 15-37 Thin prep Papanicolaou smear with manual screening 2 5-15 Laboratory - CoagulationOrde red By: Antwon Peguero on 03-03-2023 aPTT Coag (Bld) [Time] 60.0 s 24.1-36.2 [facility] Absolute lymphocyte countOrd ered By: Alphonso Thomas on 02-28-2023 Lymphocytes Auto (Unsp spec) [#/Vol] 1.96 10*3/uL 0.83-4.51 Basophil percentageOrdered B y: Alphonso Thomas on 02-28-2023 Basophils/100 WBC (Bld) 0.6 % 0-1 [facility] Chloride [Moles/Vol] 104 mmol/L 98-107 [facility] Eosinophils/100 WBC (Bld) 0.5 % 0-5 Glucose [Mass/Vol] 122 mg/dL 74-106 [facility] Comment on above: Fasting Glucose resu lt from 100 to 125 mg/dL suggests IMPAIRED HOMEOSTASIS per A.D.A. criteria. Neutrophils (Bld) [#/Vol] 5.6 10*3/uL 2.0-7.7 Neutrophils/100 WBC (Bld) 68.0 % 47-70 Potassium [Moles/Vol] 4.1 mmol/L 3.5-5.1 [facility] Sodium [Moles/Vol] 134 mmol/L 136-145 [facility] WBC (Bld) [#/Vol] 8.2 10*3/uL 4.4-11.0 [facility] Blood erythrocytes count (nu mber/volume)Ordered By: Alphonso Thomas on 02-28-2023 RBC (Bld) [#/Vol] 4.46 10*6/uL 4.2-5.4 [facility] Blood hemoglobin measurement (mass/volume)Ordered By: Alphonso Thomas on 02-28-2023 Hemoglobin (Bld) [Mass/Vol] 13.3 g/dL 12.0-15.0 Blood lymphocytes/100 leukoc ytesOrdered By: Alphonso Thomas on 02-28-2023 Lymphocytes/100 WBC (Bld) 24.0 % 19-41 Blood monocytes/100 leukocyt esOrdered By: Alphonso Thomas on 02-28-2023 Monocytes/100 WBC (Bld) 6.7 % 0-10 [facility] Blood platelet mean volumeOr dered By: Alphonso Thomas on 02-28-2023 Platelet mean volume (Bld) [Entitic vol] 10.8 fL 6.2-12.0 Determination of erythrocyte mean corpuscular volume (MCV)Ordered By: Alphonso Thomas on 02-28-2023 MCV (RBC) [Entitic vol] 89.9 fL 81-99 [facility] Hematocrit Auto (Bld) [Volum e fraction]Ordered By: Alphonso Thomas on 02-28-2023 Hematocrit (Bld) [Volume fraction] 40.1 % 37-47 INR in Blood by Coagulation assayOrdered By: Georges Mcdonald on 02-28-2023 INR Coag (Bld) [Relative time] 1.0 {INR} Laboratory - Chemistry and C hemistry - challengeOrdered By: Alphonso Thomas on 02-28-2023 CO2 [Moles/Vol] 24.0 mmol/L 21.0-32.0 Urea nitrogen/Creatinine [Mass ratio] 21.3 mg/mg 10-20 Laboratory - CoagulationOrde red By: Georges Mcdonald on 02-28-2023 PT Coag (PPP) [Time] 13.6 s 11.7-14.9 [facility] Laboratory - Hematology and Cell countsOrdered By: Alphonso Thomas on 02-28-2023 Erythrocyte distribution width (RBC) [Entitic vol] 40.7 fL 35.1-43.9 Erythrocyte distribution width (RBC) [Ratio] 12.4 % 11.6-14.6 Immature granulocytes/100 WBC (Bld) 0.200 % 0.0-0.9 Comment on above: IG% - Immature Granu locytes (promyelocytes, myelocytes and metamyelocytes) > 1% indicates that a LEFT SHIFT is Present. MCH (RBC) [Entitic mass] 29.8 pg 27.0-32.0 Nucleated RBC/100 WBC (Bld) [Ratio] 0 % 0-5 MCHC Auto (RBC) [Mass/Vol]Or dered By: Alphonso Thomas on 02-28-2023 MCHC (RBC) [Mass/Vol] 33.2 g/dL 32-36 [facility] No Panel InformationOrdered By: Antwon Peguero on 02-28-2023 Troponin I High Sensitivity 20290 pg/mL 3.0-54.0 Comment on above: Critical Result(s) C alled at: 18:28:51 02/28/2023 by: Lisa Sharma Results read back by same. Please Note: New Test Units and Gender Specific Reference Ranges. For more information see Policy Stat Procedure [place] High Sensitivity Troponin (TNIH) and attachments. No Panel InformationOrdered By: Alphonsojose Thomas on 02-28-2023 Troponin I High Sensitivity 72259 pg/mL 3.0-54.0 Comment on above: Critical Result(s) C alled at: 14:43:52 02/28/2023 by: Erica Acuna to Maranda Anna. Results read back by same. Please Note: New Test Units and Gender Specific Reference Ranges. For more information see Policy Stat Procedure [place] High Sensitivity Troponin (TNIH) and attachments. Estimated Creatinine Clearance Calc 19.40 ml/min Estimated GFR (MDRD) Amer 37 mL/min >60 Comment on above: GFR Calc Estimated GFR (MDRD) Non-Af Amer 30 mL/min >60 Comment on above: Non- GFR Calc Platelets bldOrdered By: Alphonso Thomas on 02-28-2023 Platelets (Bld) [#/Vol] 242 10*3/uL 150-450 Serum or plasma calcium andreas urement (mass/volume)Ordered By: Alphonso Thomas on 02-28-2023 Calcium [Mass/Vol] 8.9 mg/dL 8.5-10.1 [facility] Serum or plasma creatinine m easurement (mass/volume)Ordered By: Alphonso Thomas on 02-28-2023 Creatinine [Mass/Vol] 1.69 mg/dL 0.55-1.02 [facility] Comment on above: The validity of the calculated GFR & GFRAA in patients over 70 years has not been determined. Clinical correlation is essential. Serum or plasma urea nitroge n measurement (mass/volume)Ordered By: Alphonso Thomas on 02-28-2023 Urea nitrogen [Mass/Vol] 36 mg/dL 7-18 Thin prep Papanicolaou smear with manual screeningOrdered By: Alphonso Thomas on 02-28-2023 Thin prep Papanicolaou smear with manual screening 6 5-15 Absolute lymphocyte countOrd ered By: Neville Serrano on 12-05-2022 Lymphocytes Auto (Unsp spec) [#/Vol] 2.94 10*3/uL 0.83-4.51 Basophil percentageOrdered B y: Neville Serrano on 12-05-2022 Basophils/100 WBC (Bld) 1.2 % 0-1 [facility] Bilirubin [Mass/Vol] 0.30 mg/dL 0.20-1.00 [facility] Comment on above: For patients on eltr ombopag therapy, use of Dimension [place] TBIL is not recommended. Chloride [Moles/Vol] 106 mmol/L 98-107 [facility] Eosinophils/100 WBC (Bld) 4.4 % 0-5 Glucose [Mass/Vol] 106 mg/dL 74-106 [facility] Comment on above: Fasting Glucose resu lt from 100 to 125 mg/dL suggests IMPAIRED HOMEOSTASIS per A.D.A. criteria. Neutrophils (Bld) [#/Vol] 2.9 10*3/uL 2.0-7.7 Neutrophils/100 WBC (Bld) 42.5 % 47-70 Potassium [Moles/Vol] 4.1 mmol/L 3.5-5.1 [facility] Protein [Mass/Vol] 7.2 g/dL 6.4-8.2 [facility] Sodium [Moles/Vol] 137 mmol/L 136-145 [facility] WBC (Bld) [#/Vol] 6.9 10*3/uL 4.4-11.0 [facility] Blood erythrocytes count (nu mber/volume)Ordered By: Neville Serrano on 12-05-2022 RBC (Bld) [#/Vol] 4.18 10*6/uL 4.2-5.4 [facility] Blood hemoglobin measurement (mass/volume)Ordered By: Neville Serrano on 12-05-2022 Hemoglobin (Bld) [Mass/Vol] 12.6 g/dL 12.0-15.0 Blood lymphocytes/100 leukoc ytesOrdered By: Neville Serrano on 12-05-2022 Lymphocytes/100 WBC (Bld) 42.9 % 19-41 Blood monocytes/100 leukocyt esOrdered By: Neville Serrano on 12-05-2022 Monocytes/100 WBC (Bld) 8.7 % 0-10 [facility] Blood platelet mean volumeOr dered By: Neville Serrano on 12-05-2022 Platelet mean volume (Bld) [Entitic vol] 11.3 fL 6.2-12.0 Determination of erythrocyte mean corpuscular volume (MCV)Ordered By: Neville Serrano on 12-05-2022 MCV (RBC) [Entitic vol] 91.4 fL 81-99 [facility] Hematocrit Auto (Bld) [Volum e fraction]Ordered By: Neville Serrano on 12-05-2022 Hematocrit (Bld) [Volume fraction] 38.2 % 37-47 Laboratory - Chemistry and C hemistry - challengeOrdered By[facility] ALP [Catalytic activity/Vol] 93 U/L 45-117 ALT [Catalytic activity/Vol] 23 U/L 13-56 CO2 [Moles/Vol] 23.0 mmol/L 21.0-32.0 Globulin (S) [Mass/Vol] 3.9 g/dL 2.2-4.2 [facility] Urea nitrogen/Creatinine [Mass ratio] 22.2 mg/mg 10-20 Laboratory - Hematology and Cell countsOrdered By: Neville Zach on 12-05-2022 Erythrocyte distribution width (RBC) [Entitic vol] 45.1 fL 35.1-43.9 Erythrocyte distribution width (RBC) [Ratio] 13.2 % 11.6-14.6 Immature granulocytes/100 WBC (Bld) 0.300 % 0.0-0.9 Comment on above: IG% - Immature Granu locytes (promyelocytes, myelocytes and metamyelocytes) > 1% indicates that a LEFT SHIFT is Present. MCH (RBC) [Entitic mass] 30.1 pg 27.0-32.0 Nucleated RBC/100 WBC (Bld) [Ratio] 0 % 0-5 MCHC Auto (RBC) [Mass/Vol]Or dered By: Neville Serrano on 12-05-2022 MCHC (RBC) [Mass/Vol] 33.0 g/dL 32-36 [facility] No Panel InformationOrdered By: Neville Serrano on 12-05-2022 Estimated GFR (MDRD) Amer 40 mL/min >60 Comment on above: GFR Calc Estimated GFR (MDRD) Non-Af Amer 33 mL/min >60 Comment on above: Non- GFR Calc Thyroid Stimulating Hormone (TSH) 1.61 uIU/mL 0.358-3.74 Vitamin D 25-Hydroxy 26.4 ng/mL [facility] Comment on above: Vitamin D 25(OH) Sta tus Range Deficiency <20 ng/mL (50nmol/L) Insufficiency 20 - 30 ng/mL (50 - 75 nmol/L) Sufficiency 30 - 100 ng/mL (75 - 250 nmol/L) Toxicity >100 ng/mL (>250 nmol/L) Platelets bldOrdered By: Neville Serrano on 12-05-2022 Platelets (Bld) [#/Vol] 235 10*3/uL 150-450 Serum or plasma albumin andreas urement (mass/volume)Ordered By: Neville Serrano on 12-05-2022 Albumin [Mass/Vol] 3.3 g/dL 3.2-5.0 [facility] Serum or plasma albumin/glob ulin mass ratioOrdered By: Neville Serrano on 12-05-2022 Albumin/Globulin [Mass ratio] 0.8 {ratio} 0.9-2.4 Serum or plasma calcium andreas urement (mass/volume)Ordered By: Neville Serrano on 12-05-2022 Calcium [Mass/Vol] 8.8 mg/dL 8.5-10.1 [facility] Serum or plasma creatinine m easurement (mass/volume)Ordered By: Neville Serrano on 12-05-2022 Creatinine [Mass/Vol] 1.58 mg/dL 0.55-1.02 [facility] Comment on above: The validity of the calculated GFR & GFRAA in patients over 70 years has not been determined. Clinical correlation is essential. Serum or plasma urea nitroge n measurement (mass/volume)Ordered By: Neville Serrano on 12-05-2022 Urea nitrogen [Mass/Vol] 35 mg/dL 7-18 Thin prep Papanicolaou smear with manual screeningOrdered By: Neville Serrano on 12-05-2022 Thin prep Papanicolaou smear with manual screening 17 U/L 15-37 Thin prep Papanicolaou smear with manual screening 8 5-15 Basophil percentageOrdered B y: Dr. Varma on 08-13-2022 Basophil percentage 3.3 mg/dL 2.5-4.9 [facility] Chloride [Moles/Vol] 107 mmol/L 98-107 [facility] Glucose [Mass/Vol] 101 mg/dL 74-106 [facility] Comment on above: Fasting Glucose resu lt from 100 to 125 mg/dL suggests IMPAIRED HOMEOSTASIS per A.D.A. criteria. Potassium [Moles/Vol] 3.3 mmol/L 3.5-5.1 [facility] Sodium [Moles/Vol] 138 mmol/L 136-145 [facility] Laboratory - Chemistry and C hemistry - challengeOrdered By: Dr. Varma on 08-13-2022 CO2 [Moles/Vol] 26.0 mmol/L 21.0-32.0 Magnesium [Mass/Vol] 2.0 mg/dL 1.6-2.6 [facility] Urea nitrogen/Creatinine [Mass ratio] 18.0 mg/mg 10-20 Laboratory - Microbiology an d Antimicrobial susceptibilityOrdered By: Dr. Rogers on 08-13-2022 Respiratory pathogens DNA and RNA 12b panel NICHOLE+probe (Unsp spec) No Panel InformationOrdered By: Dr. Varma on 08-13-2022 Estimated Creatinine Clearance Calc 26.10 ml/min Estimated GFR (MDRD) Amer 51 mL/min >60 Comment on above: GFR Calc Estimated GFR (MDRD) Non-Af Amer 42 mL/min >60 Comment on above: Non- GFR Calc Serum or plasma calcium andreas urement (mass/volume)Ordered By: Dr. Varma on 08-13-2022 Calcium [Mass/Vol] 8.6 mg/dL 8.5-10.1 [facility] Serum or plasma creatinine m easurement (mass/volume)Ordered By: Dr. Varma on 08-13-2022 Creatinine [Mass/Vol] 1.28 mg/dL 0.55-1.02 [facility] Comment on above: The validity of the calculated GFR & GFRAA in patients over 70 years has not been determined. Clinical correlation is essential. Serum or plasma urea nitroge n measurement (mass/volume)Ordered By: Dr. Varma on 08-13-2022 Urea nitrogen [Mass/Vol] 23 mg/dL 7-18 Thin prep Papanicolaou smear with manual screeningOrdered By: Dr. Varma on 08-13-2022 Thin prep Papanicolaou smear with manual screening 5 5-15 Absolute lymphocyte countOrd ered By: Dr. Rogers on 08-12-2022 Lymphocytes Auto (Unsp spec) [#/Vol] 2.78 10*3/uL 0.83-4.51 Basophil percentageOrdered B y: Dr. Rogers on 08-12-2022 Basophils/100 WBC (Bld) 0.9 % 0-1 [facility] Bilirubin [Mass/Vol] 0.50 mg/dL 0.20-1.00 [facility] Comment on above: For patients on eltr ombopag therapy, use of Dimension [place] TBIL is not recommended. Cholesterol [Mass/Vol] 256 mg/dL <200 [facility] Comment on above: <200 mg/dL Desirable 200-240 mg/dL Borderline >240 mg/dL High Risk Eosinophils/100 WBC (Bld) 1.9 % 0-5 Neutrophils (Bld) [#/Vol] 3.1 10*3/uL 2.0-7.7 Neutrophils/100 WBC (Bld) 45.2 % 47-70 Protein [Mass/Vol] 6.4 g/dL 6.4-8.2 [facility] Triglyceride [Mass/Vol] 148 mg/dL <199 [facility] Comment on above: The drugs N-Acetylcy steine and Metamizole may falsely depress this assay.Serum Triglycerides Reference Interval Normal <150 mg/dL Borderline high 150 - 199 mg/dL High 200 - 499 mg/dL Very High > or = 500 mg/dL WBC (Bld) [#/Vol] 6.8 10*3/uL 4.4-11.0 [facility] Blood erythrocytes count (nu mber/volume)Ordered By: Dr. Rogers on 08-12-2022 RBC (Bld) [#/Vol] 4.23 10*6/uL 4.2-5.4 [facility] Blood hemoglobin measurement (mass/volume)Ordered By: Dr. Rogers on 08-12-2022 Hemoglobin (Bld) [Mass/Vol] 12.4 g/dL 12.0-15.0 Blood lymphocytes/100 leukoc ytesOrdered By: Dr. Rogers on 08-12-2022 Lymphocytes/100 WBC (Bld) 40.9 % 19-41 Blood monocytes/100 leukocyt esOrdered By: Dr. Rogers on 08-12-2022 Monocytes/100 WBC (Bld) 10.8 % 0-10 [facility] Blood platelet mean volumeOr dered By: Dr. Rogers on 08-12-2022 Platelet mean volume (Bld) [Entitic vol] 11.3 fL 6.2-12.0 Determination of erythrocyte mean corpuscular volume (MCV)Ordered By: Dr. Rogers on 08-12-2022 MCV (RBC) [Entitic vol] 89.6 fL 81-99 [facility] Hematocrit Auto (Bld) [Volum e fraction]Ordered By: Dr. Rogers on 08-12-2022 Hematocrit (Bld) [Volume fraction] 37.9 % 37-47 Laboratory - Chemistry and C hemistry - challengeOrdered By: Dr. Rogers on 08-12-2022 ALP [Catalytic activity/Vol] 83 U/L 45-117 ALT [Catalytic activity/Vol] 18 U/L 13-56 Free T4 [Mass/Vol] 1.25 ng/dL 0.76-1.46 [facility] Globulin (S) [Mass/Vol] 3.5 g/dL 2.2-4.2 [facility] Laboratory - Hematology and Cell countsOrdered By: Dr. Rogers on 08-12-2022 Erythrocyte distribution width (RBC) [Entitic vol] 41.1 fL 35.1-43.9 Erythrocyte distribution width (RBC) [Ratio] 12.7 % 11.6-14.6 Immature granulocytes/100 WBC (Bld) 0.300 % 0.0-0.9 Comment on above: IG% - Immature Granu locytes (promyelocytes, myelocytes and metamyelocytes) > 1% indicates that a LEFT SHIFT is Present. MCH (RBC) [Entitic mass] 29.3 pg 27.0-32.0 Nucleated RBC/100 WBC (Bld) [Ratio] 0 % 0-5 Laboratory - Microbiology an d Antimicrobial susceptibilityOrdered By: Marina Rogers on 08-12-2022 Respiratory pathogens DNA and RNA 12b panel NICHOLE+probe (Unsp spec) MCHC Auto (RBC) [Mass/Vol]Or dered By: Dr. Rogers on 08-12-2022 MCHC (RBC) [Mass/Vol] 32.7 g/dL 32-36 [facility] No Panel InformationOrdered By: Dr. Rogers on 08-12-2022 Thyroid Stimulating Hormone (TSH) 4.57 uIU/mL 0.358-3.74 Streptococcus pneumoniae Antigen ([facility] No Panel InformationOrdered By: Marina Rogers on 08-12-2022 Streptococcus pneumoniae Antigen ([facility] Platelets bldOrdered By: Dr. Rogers on 08-12-2022 Platelets (Bld) [#/Vol] 216 10*3/uL 150-450 Serum or plasma albumin andreas urement (mass/volume)Ordered By: Dr. Rogers on 08-12-2022 Albumin [Mass/Vol] 2.9 g/dL 3.2-5.0 [facility] Serum or plasma albumin/glob ulin mass ratioOrdered By: Dr. Rogers on 08-12-2022 Albumin/Globulin [Mass ratio] 0.8 {ratio} 0.9-2.4 Serum or plasma cholesterol in HDL measurement (mass/volume)Ordered By: Dr. Rogers on 08-12-2022 Cholesterol in HDL [Mass/Vol] 42 mg/dL >40 Comment on above: The drugs N-Acetylcy steine and Metamizole may falsely depress this assay. Reference Range HDL <40 mg/dL Low HDL Cholesterol HDL >or= 60 mg/dL High HDL Cholesterol Serum or plasma cholesterol in VLDL measurement (mass/volume)Ordered By: Dr. Rogers on 08-12-2022 Cholesterol in VLDL [Mass/Vol] 30 mg/dL 5-40 Serum or plasma low density lipoprotein (LDL) cholesterol measurement (mass/volume)Ordered By: Dr. Rogers on 08-12-2022 Cholesterol in LDL [Mass/Vol] 184 mg/dL 0-130 Thin prep Papanicolaou smear with manual screeningOrdered By: Dr. Rogers on 08-12-2022 Thin prep Papanicolaou smear with manual screening 21 U/L 15-37 Urine Legionella pneumophila antigen detectionOrdered By: Marina Rogers on 08-12-2022 L. pneumophila Ag Ql (U) Urine Legionella pneumophila antigen detectionOrdered By: Dr. Rogers on 08-12-2022 L. pneumophila Ag Ql (U) Laboratory - Chemistry and C hemistry - challengeOrdered By: Dr. Amin on 08-11-2022 Natriuretic peptide B (Bld) [Mass/Vol] 350.0 pg/mL 0-100 No Panel InformationOrdered By: Dr. Rogers on 08-11-2022 Troponin I High Sensitivity 24 pg/mL 3.0-54.0 Comment on above: Please Note: New Teresa t Units and Gender Specific Reference Ranges. For more information see Policy Stat Procedure [place] High Sensitivity Troponin (TNIH) and attachments. No Panel InformationOrdered By: Dr. Amin on 08-11-2022 D-Dimer Quantitative (PE/DVT) 0.88 FEU/ug/m 0.27-0.49 Comment on above: D-Dimer ELEVATED (>0 .49): Additional studies and clinicalassessments are indicated to conclude diagnosis of:Deep Vein Thrombosis (DVT) or Pulmonary Embolism (PE)CRITICAL VALUE VERIFIED. CALLED TO ELVIRA TOLBERT08/11/22 1410 Jocelyn Acuna.RESULTS READ BACK BY SAME . Serum procalcitonin measurem entOrdered By: Dr. Rogers on 08-11-2022 Procalcitonin [Mass/Vol] ng/mL 0.00-0.09 Comment on above: A procalcitonin (PCT ) [...] Auto (Unsp spec) [#/Vol] 2.75 10*3/uL 0.83-4.51 Basophil percentageOrdered B y: Neville Serrano on 06-04-2022 Basophils/100 WBC (Bld) 0.9 % 0-1 [facility] Bilirubin [Mass/Vol] 0.20 mg/dL 0.20-1.00 [facility] Comment on above: For patients on eltr ombopag therapy, use of Dimension [place] TBIL is not recommended. Chloride [Moles/Vol] 107 mmol/L 98-107 [facility] Eosinophils/100 WBC (Bld) 2.1 % 0-5 Glucose [Mass/Vol] 94 mg/dL 74-106 [facility] Neutrophils (Bld) [#/Vol] 4.4 10*3/uL 2.0-7.7 Neutrophils/100 WBC (Bld) 54.4 % 47-70 Potassium [Moles/Vol] 4.3 mmol/L 3.5-5.1 [facility] Comment on above: Slight Hemolysis, Re sult may be falsely increased. Protein [Mass/Vol] 7.1 g/dL 6.4-8.2 [facility] Sodium [Moles/Vol] 140 mmol/L 136-145 [facility] WBC (Bld) [#/Vol] 8.0 10*3/uL 4.4-11.0 [facility] Blood erythrocytes count (nu mber/volume)Ordered By: Neville Serrano on 06-04-2022 RBC (Bld) [#/Vol] 4.74 10*6/uL 4.2-5.4 [facility] Blood hemoglobin measurement (mass/volume)Ordered By: Neville Serrano on 06-04-2022 Hemoglobin (Bld) [Mass/Vol] 13.7 g/dL 12.0-15.0 Blood lymphocytes/100 leukoc ytesOrdered By: Neville Serrano on 06-04-2022 Lymphocytes/100 WBC (Bld) 34.3 % 19-41 Blood monocytes/100 leukocyt esOrdered By: Neville Serrano on 06-04-2022 Monocytes/100 WBC (Bld) 8.1 % 0-10 [facility] Blood platelet mean volumeOr dered By: Neville Serrano on 06-04-2022 Platelet mean volume (Bld) [Entitic vol] 12.8 fL 6.2-12.0 Determination of erythrocyte mean corpuscular volume (MCV)Ordered By: Neville Serrano on 06-04-2022 MCV (RBC) [Entitic vol] 90.9 fL 81-99 [facility] Hematocrit Auto (Bld) [Volum e fraction]Ordered By: Neville Zach on 06-04-2022 Hematocrit (Bld) [Volume fraction] 43.1 % 37-47 Laboratory - Chemistry and C hemistry - challengeOrdered By: Neville Serrano on 06-04-2022 ALP [Catalytic activity/Vol] 82 U/L 45-117 ALT [Catalytic activity/Vol] 20 U/L 13-56 CO2 [Moles/Vol] 24.0 mmol/L 21.0-32.0 Globulin (S) [Mass/Vol] 3.6 g/dL 2.2-4.2 [facility] Urea nitrogen/Creatinine [Mass ratio] 16.6 mg/mg 10-20 Laboratory - Hematology and Cell countsOrdered By: Neville Serrano on 06-04-2022 Erythrocyte distribution width (RBC) [Entitic vol] 41.8 fL 35.1-43.9 Erythrocyte distribution width (RBC) [Ratio] 12.6 % 11.6-14.6 Immature granulocytes/100 WBC (Bld) 0.200 % 0.0-0.9 Comment on above: IG% - Immature Granu locytes (promyelocytes, myelocytes and metamyelocytes) > 1% indicates that a LEFT SHIFT is Present. MCH (RBC) [Entitic mass] 28.9 pg 27.0-32.0 Nucleated RBC/100 WBC (Bld) [Ratio] 0 % 0-5 MCHC Auto (RBC) [Mass/Vol]Or dered By: Neville Serrano on 06-04-2022 MCHC (RBC) [Mass/Vol] 31.8 g/dL 32-36 [facility] No Panel InformationOrdered By: Neville Serrano on 06-04-2022 Estimated GFR (MDRD) Amer 35 mL/min >60 Comment on above: GFR Calc Estimated GFR (MDRD) Non-Af Amer 29 mL/min >60 Comment on above: Non- GFR Calc Thyroid Stimulating Hormone (TSH) 1.79 uIU/mL 0.358-3.74 Vitamin D 25-Hydroxy 18.4 ng/mL [facility] Comment on above: Vitamin D 25(OH) Sta tus Range Deficiency <20 ng/mL (50nmol/L) Insufficiency 20 - 30 ng/mL (50 - 75 nmol/L) Sufficiency 30 - 100 ng/mL (75 - 250 nmol/L) Toxicity >100 ng/mL (>250 nmol/L) Platelets bldOrdered By: Neville Serrano on 06-04-2022 Platelets (Bld) [#/Vol] 221 10*3/uL 150-450 Serum or plasma albumin andreas urement (mass/volume)Ordered By: Neville Zach on 06-04-2022 Albumin [Mass/Vol] 3.5 g/dL 3.2-5.0 [facility] Serum or plasma albumin/glob ulin mass ratioOrdered By: Neville Zach on 06-04-2022 Albumin/Globulin [Mass ratio] 1.0 {ratio} 0.9-2.4 Serum or plasma calcium andreas urement (mass/volume)Ordered By: Neville Zach on 06-04-2022 Calcium [Mass/Vol] 9.0 mg/dL 8.5-10.1 [facility] Serum or plasma creatinine m easurement (mass/volume)Ordered By: Neville Zach on 06-04-2022 Creatinine [Mass/Vol] 1.75 mg/dL 0.55-1.02 [facility] Comment on above: The validity of the calculated GFR & GFRAA in patients over 70 years has not been determined. Clinical correlation is essential. Serum or plasma urea nitroge n measurement (mass/volume)Ordered By: Neville Zach on 06-04-2022 Urea nitrogen [Mass/Vol] 29 mg/dL 7-18 Thin prep Papanicolaou smear with manual screeningOrdered By: [facility] Thin prep Papanicolaou smear with manual screening 19 U/L 15-37 Comment on above: Slight Hemolysis, Re sult may be falsely increased. Thin prep Papanicolaou smear with manual screening 9 5-15 Absolute lymphocyte counton 11-29-2021 Lymphocytes Auto (Unsp spec) [#/Vol] 3.35 10*3/uL 0.83-4.51 Work Phone: Basophil percentageon 2021 Basophils/100 WBC (Bld) 0.9 % 0-1 [facility] Work Phone: Bilirubin [Mass/Vol] 0.30 mg/dL 0.20-1.00 [facility] Work Phone: Comment on above: For patients on eltr ombopag therapy, use of Dimension [place] TBIL is not recommended. Chloride [Moles/Vol] 111 mmol/L 98-107 [facility] Work Phone: Eosinophils/100 WBC (Bld) 3.0 % 0-5 Work Phone: Glucose [Mass/Vol] 102 mg/dL 74-106 [facility] Work Phone: Comment on above: Fasting Glucose resu lt from 100 to 125 mg/dL suggests IMPAIRED HOMEOSTASIS per A.D.A. criteria. Neutrophils (Bld) [#/Vol] 3.5 10*3/uL 2.0-7.7 Work Phone: Neutrophils/100 WBC (Bld) 44.4 % 47-70 Work Phone: Potassium [Moles/Vol] 4.5 mmol/L 3.5-5.1 [facility] Work Phone: Comment on above: Moderate Hemolysis, Result may be falsely increased. Protein [Mass/Vol] 6.7 g/dL 6.4-8.2 [facility] Work Phone: Sodium [Moles/Vol] 139 mmol/L 136-145 [facility] Work Phone: WBC (Bld) [#/Vol] 7.9 10*3/uL 4.4-11.0 [facility] Work Phone: Blood erythrocytes count (nu mber/volume)on 11-29-2021 RBC (Bld) [#/Vol] 4.41 10*6/uL 4.2-5.4 [facility] Work Phone: Blood hemoglobin measurement (mass/volume)on 11-29-2021 Hemoglobin (Bld) [Mass/Vol] 13.1 g/dL 12.0-15.0 Work Phone: Blood lymphocytes/100 leukoc yteson 11-29-2021 Lymphocytes/100 WBC (Bld) 42.4 % 19-41 Work Phone: Blood monocytes/100 leukocyt eson 11-29-2021 Monocytes/100 WBC (Bld) 8.9 % 0-10 [facility] Work Phone: Blood platelet mean volumeon 11-29-2021 Platelet mean volume (Bld) [Entitic vol] 11.8 fL 6.2-12.0 Work Phone: Determination of erythrocyte mean corpuscular volume (MCV)on 11-29-2021 MCV (RBC) [Entitic vol] 88.2 fL 81-99 [facility] Work Phone: Hematocrit Auto (Bld) [Volum e fraction]on 11-29-2021 Hematocrit (Bld) [Volume fraction] 38.9 % 37-47 Work Phone: Laboratory - Chemistry and C hemistry - challengeon 11-29-2021 ALP [Catalytic activity/Vol] 82 U/L 45-117 Work Phone: ALT [Catalytic activity/Vol] 21 U/L 13-56 Work Phone: CO2 [Moles/Vol] 22.0 mmol/L 21.0-32.0 Work Phone: Globulin (S) [Mass/Vol] 3.6 g/dL 2.2-4.2 [facility] Work Phone: Urea nitrogen/Creatinine [Mass ratio] 22.9 mg/mg 10-20 Work Phone: Laboratory - Hematology and Cell countson 11-29-2021 Erythrocyte distribution width (RBC) [Entitic vol] 40.5 fL 35.1-43.9 Work Phone: Erythrocyte distribution width (RBC) [Ratio] 12.5 % 11.6-14.6 Work Phone: Immature granulocytes/100 WBC (Bld) 0.400 % 0.0-0.9 Work Phone: Comment on above: IG% - Immature Granu locytes (promyelocytes, myelocytes and metamyelocytes) > 1% indicates that a LEFT SHIFT is Present. MCH (RBC) [Entitic mass] 29.7 pg 27.0-32.0 Work Phone: Nucleated RBC/100 WBC (Bld) [Ratio] 0 % 0-5 Work Phone: MCHC Auto (RBC) [Mass/Vol]on 11-29-2021 MCHC (RBC) [Mass/Vol] 33.7 g/dL 32-36 [facility] Work Phone: No Panel Informationon 11-29 Estimated GFR (MDRD) Amer 56 mL/min >60 Work Phone: Comment on above: GFR Calc Estimated GFR (MDRD) Non-Af Amer 46 mL/min >60 Work Phone: Comment on above: Non- GFR Calc Thyroid Stimulating Hormone (TSH) 1.73 uIU/mL 0.358-3.74 Work Phone: Vitamin D 25-Hydroxy 21.3 ng/mL [facility] Work Phone: Comment on above: Vitamin D 25(OH) Sta tus Range Deficiency <20 ng/mL (50nmol/L) Insufficiency 20 - 30 ng/mL (50 - 75 nmol/L) Sufficiency 30 - 100 ng/mL (75 - 250 nmol/L) Toxicity >100 ng/mL (>250 nmol/L) Platelets bldon 11-29-2021 Platelets (Bld) [#/Vol] 207 10*3/uL 150-450 Work Phone: Serum or plasma albumin andreas urement (mass/volume)on 11-29-2021 Albumin [Mass/Vol] 3.1 g/dL 3.2-5.0 [facility] Work Phone: Serum or plasma albumin/glob ulin mass ratioon 11-29-2021 Albumin/Globulin [Mass ratio] 0.9 {ratio} 0.9-2.4 Work Phone: Serum or plasma calcium andreas urement (mass/volume)on 11-29-2021 Calcium [Mass/Vol] 8.5 mg/dL 8.5-10.1 [facility] Work Phone: Serum or plasma creatinine m easurement (mass/volume)on 11-29-2021 Creatinine [Mass/Vol] 1.18 mg/dL 0.55-1.02 [facility] Work Phone: Comment on above: The validity of the calculated GFR & GFRAA in patients over 70 years has not been determined. Clinical correlation is essential. Serum or plasma urea nitroge n measurement (mass/volume)on 11-29-2021 Urea nitrogen [Mass/Vol] 27 mg/dL 7-18 Work Phone: Thin prep Papanicolaou smear with manual screeningon 11-29-2021 Thin prep Papanicolaou smear with manual screening 28 U/L 15-37 Work Phone: Comment on above: Moderate Hemolysis, Result may be falsely increased. Thin prep Papanicolaou smear with manual screening 6 5-15 Work Phone: Office Visit: UC: ismael miranda 03-28-2017 Documentation of current medications (procedure) Done Invalid Interpretation Code [facility] Work Phone: Fall risk assessment No Invalid Interpretation Code [facility] Work Phone: Tobacco use CPHS Never smoker Invalid Interpretation Code [facility] Work Phone: Vital Signs Date Time Vital Sign Value Performing Clinician Facility 02-22-2025 12:37-0400 Body height 160.[address] Neville Serrano MD Work Phone: 02-22-2025 12:37-0400 Body mass index (BMI) [Ratio] 39.3 kg/m2 Dr. Neville Serrano MD Work Phone: 02-22-2025 12:37-0400 Body weight 100.[address] Neville Serrano MD Work Phone: 9(974)795-004125 [place] [address] 02-22-2025 12:37-0400 Diastolic blood pressure 83 mm[Hg] Dr. Neville Serrano MD Work Phone: 5(815)576-630537 [place] [address] 02-22-2025 12:37-0400 Heart rate 83 /min Dr. Neville Serrano MD Work Phone: 6(482)888-844037 [place] [address] 02-22-2025 12:37-0400 Respiratory rate 18 /min Dr. Neville Serrano MD Work Phone: 7(385)608-849037 [place] [address] 02-22-2025 12:37-0400 SaO2% (BldA) [Mass fraction] 93 % Dr. Neville Serrnao MD Work Phone: 8(876)809-463437 [place] [address] 02-22-2025 12:37-0400 Systolic blood pressure 164 mm[Hg] Dr. Neville Serrano MD Work Phone: 7(107)551-983737 [place] [address] 04-26-2024 13:00-0500 Body temperature 98.1 [degF] Dr. Neville Serrano MD Work Phone: 8(278)731-231837 [place] [address] 04-26-2024 13:00-0500 Diastolic blood pressure 79 mm[Hg] Dr. Neville Serrano MD Work Phone: 8(449)484-622637 [place] [address] 04-26-2024 13:00-0500 Heart rate 77 /min Dr. Neville Serrano MD Work Phone: 1(019)629-599837 [place] [address] 04-26-2024 13:00-0500 Respiratory rate 18 /min Dr. Neville Serrano MD Work Phone: 1(387)307-318925 [place] [address] 04-26-2024 13:00-0500 SaO2% (BldA) [Mass fraction] 97 % Dr. Neville Serrano MD Work Phone: 8(378)431-481637 [place] [address] 04-26-2024 13:00-0500 Systolic blood pressure 130 mm[Hg] Dr. Neville Serrano MD Work Phone: 6(292)511-021737 [place] [address] 04-26-2024 06:34-0500 Body mass index (BMI) [Ratio] 38.8 kg/m2 Dr. Neville Serrano MD Work Phone: 04-26-2024 06:34-0500 Body weight 99.[address] Neville Serrano MD Work Phone: 04-25-2024 08:33-0500 Body height 160.[address] Neville Serrano MD Work Phone: 04-25-2024 06:08-0500 Inhaled oxygen flow rate 2 L/min Dr. Neville Serrano MD Work Phone: 04-25-2024 04:58-0500 Inhaled oxygen concentration 93 % Dr. Neville Serrano MD Work Phone: 08-13-2023 06:34-0400 Body temperature 97.4 [degF] Dr. Neville Serrano Work Phone: 08-13-2023 06:34-0400 Diastolic blood pressure 62 mm[Hg] Dr. Neville Serrano Work Phone: 08-13-2023 06:34-0400 Heart rate 84 /min Dr. Neville Serrano Work Phone: 08-13-2023 06:34-0400 Respiratory rate 16 /min Dr. Neville Serrano Work Phone: 08-13-2023 06:34-0400 SaO2% (BldA) [Mass fraction] 99 % Dr. Neville Serrano Work Phone: 08-13-2023 06:34-0400 Systolic blood pressure 132 mm[Hg] Dr. Neville Serrano Work Phone: 08-13-2023 04:03-0400 Body height 160.[address] Neville Serrano Work Phone: 08-13-2023 04:03-0400 Body mass index (BMI) [Ratio] 39.9 kg/m2 Dr. Neville Serrano Work Phone: 4(197)270-725884 [address] 08-13-2023 04:03-0400 Body weight 102.[address] Neville Serrano Work Phone: 7(864)880-790337 [place] [address] 06-24-2023 08:25-0500 Body height 160.[address] Neville Serrano Work Phone: 6(437)290-999537 [place] [address] 06-24-2023 08:25-0500 Body mass index (BMI) [Ratio] 37.7 kg/m2 Dr. Neville Serrano Work Phone: 0(496)460-615437 [place] [address] 06-24-2023 08:25-0500 Body weight 96.[address] Neville Serrano Work Phone: 0(425)604-873137 [place] [address] 06-24-2023 08:25-0500 Diastolic blood pressure 80 mm[Hg] Dr. Neville Serrano Work Phone: 4(815)485-509737 [place] [address] 06-24-2023 08:25-0500 Heart rate 98 /min Dr. Neville Serrano Work Phone: 2(018)715-250637 [place] [address] 06-24-2023 08:25-0500 Respiratory rate 18 /min Dr. Neville Serrano Work Phone: 9(174)692-541137 [place] [address] 06-24-2023 08:25-0500 SaO2% (BldA) [Mass fraction] 99 % Dr. Neville Serrano Work Phone: 5(973)744-521237 [place] [address] 06-24-2023 08:25-0500 Systolic blood pressure 143 mm[Hg] Dr. Neville Serrano Work Phone: 7(769)562-679837 [place] [address] 03-18-2023 12:24-0500 Body height 160.[address] Neville Serrano Work Phone: 0(623)478-356837 [place] [address] 03-18-2023 12:24-0500 Body mass index (BMI) [Ratio] 37.3 kg/m2 Dr. Neville Serrano Work Phone: 0(908)886-700637 [place] [address] 03-18-2023 12:24-0500 Body weight 95.[address] Neville Srerano Work Phone: 03-18-2023 12:24-0500 Diastolic blood pressure 77 mm[Hg] Dr. Neville Serrano Work Phone: 03-18-2023 12:24-0500 Heart rate 81 /min Dr. Neville Serrano Work Phone: 03-18-2023 12:24-0500 Respiratory rate 18 /min Dr. Neville Serrano Work Phone: 03-18-2023 12:24-0500 SaO2% (BldA) [Mass fraction] 94 % Dr. Neville Serrano Work Phone: 4(856)470-536525 [place] [address] 03-18-2023 12:24-0500 Systolic blood pressure 138 mm[Hg] Dr. Neville Serrano Work Phone: 6(171)643-340637 [place] [address] 03-08-2023 11:34-0400 Body temperature 98.2 [degF] Dr. Neville Serrano Work Phone: 6(126)287-922525 [place] [address] 03-08-2023 11:34-0400 Diastolic blood pressure 52 mm[Hg] Dr. Neville Serrano Work Phone: 1(019)815-175625 [place] [address] 03-08-2023 11:34-0400 Heart rate 70 /min Dr. Neville Serrano Work Phone: 9(051)837-196025 [place] [address] 03-08-2023 11:34-0400 Respiratory rate 20 /min Dr. Neville Serrano Work Phone: 5(191)288-867225 [place] [address] 03-08-2023 11:34-0400 SaO2% (BldA) [Mass fraction] 95 % Dr. Neville Serrano Work Phone: 0(576)620-426825 [place] [address] 03-08-2023 11:34-0400 Systolic blood pressure 115 mm[Hg] Dr. Neville Serrano Work Phone: 9(073)903-308325 [place] [address] 03-07-2023 21:40-0400 Body mass index (BMI) [Ratio] 37.1 kg/m2 Dr. Neville Serrano Work Phone: 1(030)880-792825 [place] [address] 03-07-2023 21:40-0400 Body weight 95.[address] Neville Serrano Work Phone: 7(243)707-874625 [place] [address] 03-07-2023 12:21-0400 Inhaled oxygen flow rate 2 L/min Dr. Neville Serrano Work Phone: 4(270)126-397525 [place] [address] 03-07-2023 08:40-0400 Body height 160.[address] Neville Serrano Work Phone: 4(875)128-660525 [place] [address] 03-07-2023 06:31-0400 Diastolic blood pressure 69 mm[Hg] Dr. Neville Serrano Work Phone: 6(640)610-782325 [place] [address] 03-07-2023 06:31-0400 Heart rate 78 /min Dr. Neville Serrano Work Phone: 3(901)100-120525 [place] [address] 03-07-2023 06:31-0400 Inhaled oxygen flow rate 2 L/min Dr. Neville Serrano Work Phone: 3(510)338-646025 [place] [address] 03-07-2023 06:31-0400 Respiratory rate 20 /min Dr. Neville Serrano Work Phone: 2(244)935-378025 [place] [address] 03-07-2023 06:31-0400 SaO2% (BldA) [Mass fraction] 94 % Dr. Neville Serrano Work Phone: 5(189)408-896125 [place] [address] 03-07-2023 06:31-0400 Systolic blood pressure 118 mm[Hg] Dr. Neville Serrano Work Phone: 2(504)671-749525 [place] [address] 03-07-2023 06:10-0400 Body temperature 97.9 [degF] Dr. Neville Serrano Work Phone: 8(618)010-888325 [place] [address] 03-07-2023 04:30-0400 Body height 160.[address] Neville Serrano Work Phone: 4(883)823-369025 [place] [address] 03-07-2023 04:30-0400 Body mass index (BMI) [Ratio] 39.2 kg/m2 Dr. Neville Serrano Work Phone: 6(683)608-033225 [place] [address] 03-07-2023 04:30-0400 Body weight 100.[address] Neville Serrano Work Phone: 03-04-2023 13:51-0400 Body temperature 97.8 [degF] Dr. Neville Serrano Work Phone: 03-04-2023 13:51-0400 Diastolic blood pressure 54 mm[Hg] Dr. Neville Serrano Work Phone: 6(774)456-536525 [place] [address] 03-04-2023 13:51-0400 Heart rate 83 /min Dr. Neville Serrano Work Phone: 8(734)886-155625 [place] [address] 03-04-2023 13:51-0400 Respiratory rate 17 /min Dr. Neville Serrano Work Phone: 3(572)864-926525 [place] [address] 03-04-2023 13:51-0400 SaO2% (BldA) [Mass fraction] 98 % Dr. Neville Serrano Work Phone: 2(161)955-952625 [place] [address] 03-04-2023 13:51-0400 Systolic blood pressure 122 mm[Hg] Dr. Neville Serrano Work Phone: 0(515)771-393925 [place] [address] 03-01-2023 06:00-0400 Inhaled oxygen flow rate 2 L/min Dr. Neville Serrano Work Phone: 7(964)377-454025 [place] [address] 02-28-2023 14:49-0400 Body height 160.[address] Neville Serrano Work Phone: 4(562)883-551425 [place] [address] 02-28-2023 14:49-0400 Body mass index (BMI) [Ratio] 36.6 kg/m2 Dr. Neville Serrano Work Phone: 02-28-2023 14:49-0400 Body weight 93.[address] Neville Serrano Work Phone: 1(495)686-451025 [place] [address] 02-28-2023 13:00-0400 Body temperature 97.6 [degF] [facility] 02-28-2023 13:00-0400 Diastolic blood pressure 78 mm[Hg] 02-28-2023 13:00-0400 Heart rate 78 /min [facility] 02-28-2023 13:00-0400 Respiratory rate 14 /min [facility] 02-28-2023 13:00-0400 SaO2% (BldA) [Mass fraction] 100 % 02-28-2023 13:00-0400 Systolic blood pressure 110 mm[Hg] 02-28-2023 10:10-0400 Body height 160.02 cm [facility] 02-28-2023 10:10-0400 Body mass index (BMI) [Ratio] 37.2 kg/m2 02-28-2023 10:10-0400 Body weight 95.25 kg [facility] 09-16-2022 14:05-0400 Body weight 93.[address] Neville Serrano Work Phone: 0(059)769-718825 [place] [address] 09-16-2022 14:05-0400 Diastolic blood pressure 60 mm[Hg] Dr. Neville Serrano Work Phone: 09-16-2022 14:05-0400 Heart rate 74 /min Dr. Neville Serrano Work Phone: 09-16-2022 14:05-0400 Respiratory rate 18 /min Dr. Neville Serrano Work Phone: 09-16-2022 14:05-0400 Systolic blood pressure 149 mm[Hg] Dr. Neville Serrano Work Phone: 09-16-2022 09:48-0400 Body height 160.[address] Neville Serrano Work Phone: 08-13-2022 08:38-0400 Body temperature 98 [degF] Dr. Neville Serrano Work Phone: 08-13-2022 08:38-0400 Diastolic blood pressure 48 mm[Hg] Dr. Neville Serrano Work Phone: 08-13-2022 08:38-0400 Heart rate 78 /min Dr. Neville Serrano Work Phone: 08-13-2022 08:38-0400 Respiratory rate 18 /min Dr. Neville Serrano Work Phone: 08-13-2022 08:38-0400 SaO2% (BldA) [Mass fraction] 95 % Dr. Neville Serrano Work Phone: 08-13-2022 08:38-0400 Systolic blood pressure 134 mm[Hg] Dr. Neville Serrano Work Phone: 08-13-2022 08:18-0400 Body mass index (BMI) [Ratio] 34.7 kg/m2 Dr. Neville Serrano Work Phone: 08-13-2022 08:18-0400 Body weight 88.[address] Neville Serrano Work Phone: 08-12-2022 10:40-0400 Body height 160.[address] Neville Serrano Work Phone: 03-28-2017 15:45-0500 BMI (Body Mass Index) 35.78 kg/m2 [facility] Work Phone: 03-28-2017 15:45-0500 Body Temperature 98.4 [degF] [facility] Work Phone: 03-28-2017 15:45-0500 BP Diastolic 74 mm[Hg] [facility] Work Phone: 03-28-2017 15:45-0500 BP Systolic 142 mm[Hg] [facility] Work Phone: 03-28-2017 15:45-0500 Height 160.02 cm [facility] Work Phone: 03-28-2017 15:45-0500 Pulse (Heart Rate) 82 /min [facility] Work Phone: 03-28-2017 15:45-0500 Respiratory Rate 15 /min [facility] Work Phone: 03-28-2017 15:45-0500 Weight 91.63 kg Steve [facility] Work Phone: Encounters Encounter Date Encounter Type Care Provider Facility Start: 02-22-2025 End: 02-22-2025 Patient encounter procedure Rebecca Bhatt [employer]-C -[facility] Work Phone: Start: 02-22-2025 End: 02-22-2025 ambulatory Rebecca Bhatt NP Facility[place] Start: 01-18-2025 End: 01-18-[address] Neville Serrano MD Work Phone: -Laboratory Phy Office 3rd Flr Start: 01-18-2025 End: 01-18-[address] Neville Serrano MD -Laboratory Phy Office 3rd Flr Start: 01-18-2025 End: 01-18-2025 ambulatory [facility] Facility: Start: 08-12-2024 End: 08-12-2024 ambulatory Jeovanny Bal Facility[place] Start: 06-29-2024 End: 06-29-[address] Neville Serrano MD Work Phone: Work Phone: Start: 06-29-2024 End: 06-29-[address] Neville Serrano MD -Laboratory, Phy Office 3rd Flr Start: 06-29-2024 End: 06-29-2024 ambulatory Neville Jemal Zach Facility: Start: 06-15-2024 End: 06-15-[address] Neville Serrano MD -Laboratory Work Phone: Start: 06-15-2024 End: 06-15-2024 ambulatory [facility] Facility: Start: 06-02-2024 End: 06-02-[address] Neville Serrano MD -Laboratory, Phy Office 3rd Flr Start: 06-02-2024 End: 06-02-2024 ambulatory [facility] Facility: Start: 05-04-2024 End: 05-04-[address] Neville Serrano MD -Laboratory Work Phone: Start: 05-04-2024 End: 05-04-2024 ambulatory Neville Serrano Facility: Start: 04-26-2024 Non-patient / Non-visit Dr. Tien Varma MD -[facility] Work Phone: Start: 04-25-2024 End: 04-26-2024 Evaluation and management of inpatient Dr. Tien Varma MD -Progressive Care Unit Work Phone: Start: 04-25-2024 ambulatory Tien Varma Facility: [facility] Start: 04-25-2024 Non-patient / Non-visit Dr. Arline Peguero MD -[facility] Work Phone: Start: 08-13-2023 End: 08-13-2023 Emergency department patient visit Dr. Neville Serrano Work Phone: -Emergency Department Work Phone: Start: 07-30-2023 Non-patient / Non-visit Dr. Loy Serrano Work Phone: [facility] Start: 07-30-2023 End: 07-30-[address] Neville Serrano Work Phone: Work Phone: Start: 07-30-2023 End: 07-30-[address] [facility] Work Phone: Start: 06-24-2023 End: 06-24-[address] Neville Serrano Work Phone: [facility] Work Phone: Start: 06-09-2023 End: 06-09-[address] Neville Serrano Work Phone: Work Phone: Start: 06-09-2023 End: 06-09-[address] Neville Serrano Work Phone: -Laboratory, Phy Office 3rd Flr Start: 03-18-2023 End: 03-18-[address] Neville Serrano Work Phone: [facility] Work Phone: Start: 03-08-2023 Non-patient / Non-visit Dr. Loy Serrano Work Phone: [facility] Work Phone: Start: 03-07-2023 Non-patient / Non-visit Dr. Loy Serrano Work Phone: [facility] Start: 03-07-2023 End: 03-08-2023 Evaluation and management of inpatient Dr. Neville Serrano Work Phone: -Progressive Care Unit Work Phone: Start: 03-07-2023 End: 03-08-[address] Neville Serrano Work Phone: Work Phone: Start: 03-07-2023 Non-patient / Non-visit Dr. Loy Serrano Work Phone: [facility] Work Phone: Start: 03-04-2023 Non-patient / Non-visit Dr. Loy Serrano Work Phone: [facility] Work Phone: Start: 03-04-2023 Non-patient / Non-visit Dr. Loy Serrano Work Phone: [facility] Start: 03-04-2023 End: 03-04-2023 Non-patient / Non-visit Dr. Neville Serrano Work Phone: [facility] Work Phone: Start: 03-03-2023 Non-patient / Non-visit Dr. Loy Serrano Work Phone: [facility] Start: 03-02-2023 Non-patient / Non-visit Dr. Loy Serrano Work Phone: [facility] Work Phone: Start: 03-01-2023 Non-patient / Non-visit Dr. Loy Serrano Work Phone: [facility] Start: 02-28-2023 Non-patient / Non-visit Dr. Loy Serrano Work Phone: [facility] Work Phone: Start: 02-28-2023 End: 03-04-2023 Evaluation and management of inpatient -Progressive Care Unit Work Phone: Start: 12-05-2022 End: 12-05-[address] Neville Serrano Work Phone: Work Phone: Start: 12-05-2022 End: 12-05-[address] Neville Serrano Work Phone: -Laboratory, Phy Office 3rd Flr Start: 09-25-2022 Non-patient / Non-visit Dr. Loy Serrano Work Phone: [facility] Start: 09-25-2022 End: 09-25-[address] Neville Serrano Work Phone: Work Phone: Start: 09-25-2022 End: 09-25-[address] [facility]err[facility] Start: 09-16-2022 End: 09-16-[address] Neville Serrano Work Phone: [facility] Start: 08-13-2022 Non-patient / Non-visit Dr. Loy Serrano Work Phone: -[place] [facility] Start: 08-12-2022 Non-patient / Non-visit Dr. Loy Serrano Work Phone: -[facility] Start: 08-11-2022 End: 08-13-2022 Evaluation and management of inpatient Dr. Neville Serrano Work Phone: -Progressive Care Unit Start: 06-26-2022 End: 06-26-2022 ambulatory Work Phone: Start: 06-26-2022 End: 06-26-2022 Patient encounter procedure -[facility] Start: 06-04-2022 End: 06-04-2022 ambulatory Work Phone: Start: 06-04-2022 End: 06-04-2022 Patient encounter procedure -Laboratory, Phy Office 3rd Flr Start: 11-29-2021 End: 11-29-2021 Patient encounter procedure -Laboratory, Phy Office 3rd Flr Procedures Date Procedure [...] Phone: Start: 03-07-2023 Plain chest X-ray Dr. Stpehanie Serrano Work Phone: Start: 02-28-2023 Plain chest [...] Activity Detail Author Start: 04-26-2024 Patient discharge Start: 04-26-2024 Referral to service Start: 04-25-2024 Following clinical pathway protocol Start: 04-25-2024 Ambulation without limitation Start: 04-25-2024 Assessment of risk of venous thromboembolism Start: 04-25-2024 Insertion of catheter into peripheral vein Start: 04-25-2024 Measuring intake and output [facility] Start: 04-25-2024 Oxygen therapy Start: 04-25-2024 Providing care according to standard Start: 04-25-2024 Start: 04-25-2024 Admission procedure Start: 08-13-2023 Start: 03-08-2023 Patient discharge Start: 03-07-2023 Following clinical pathway protocol Start: 03-07-2023 Elevation of affected extremity Start: 03-07-2023 Fluid restriction Start: 03-07-2023 Notification of physician [facility] Start: 03-07-2023 Patient education Start: 03-07-2023 Application of elastic bandage Start: 03-07-2023 Assessment of risk of venous thromboembolism Start: 03-07-2023 Incentive spirometry Start: 03-07-2023 Inhalation therapy procedure Start: 03-07-2023 Insertion of catheter into peripheral vein Start: 03-07-2023 Introduction of urinary catheter Start: 03-07-2023 Measuring intake and output [facility] Start: 03-07-2023 Oxygen therapy Start: 03-07-2023 Providing care according to standard Start: 03-07-2023 Provision of activity privileges Start: 03-07-2023 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 to cement storage worker [facility] Start: 03-07-2023 Referral to occupational therapist Start: 03-07-2023 Referral to service Start: 03-07-2023 Start: 03-07-2023 Measurement of occult blood in stool specimen using immunoassay Start: 03-07-2023 Verification routine Start: 03-07-2023 Admission procedure Start: 03-07-2023 Hospital admission, emergency, from emergency room, medical nature Start: 03-07-2023 Start: 03-04-2023 Patient discharge Start: 03-03-2023 Patient referral Work Phone: Start: 03-03-2023 Cardiac monitoring Start: 03-03-2023 Cardiac rehabilitation - phase 1 Start: 03-03-2023 Cardiac rehabilitation - phase 2 Start: 03-03-2023 End: 03-03-2023 Notification of physician [facility] Start: 03-03-2023 Oxygen therapy Start: 03-03-2023 Patient discharge Start: 03-03-2023 Systemic arterial pressure monitoring Start: 03-03-2023 End: 03-03-2023 Taking patient vital signs [facility] Start: 03-03-2023 Vascular disease risk assessment Start: 03-03-2023 Vital signs measurements [facility] Start: 03-03-2023 End: 03-03-2023 Start: 03-03-2023 Patient education Start: 03-03-2023 Provision of activity privileges Start: 03-03-2023 Pulse taking Start: 03-03-2023 Wound care Start: 03-03-2023 Catheterization of vein [facility] Start: 03-03-2023 Medication not administered [facility] Start: 03-03-2023 Notification of physician [facility] Start: 03-03-2023 End: 03-03-2023 Start: 03-02-2023 Start: 03-01-2023 Care planning and problem solving actions Start: 03-01-2023 Catheterization of vein [facility] Start: 03-01-2023 Medication not administered [facility] Start: 03-01-2023 Notification of physician [facility] Start: 03-01-2023 Start: 03-01-2023 Following clinical pathway protocol Start: 02-28-2023 Following clinical pathway protocol Start: 02-28-2023 Care planning and problem solving actions Start: 02-28-2023 Assessment of risk of venous thromboembolism Start: 02-28-2023 Insertion of catheter into peripheral vein Start: 02-28-2023 Measuring intake and output [facility] Start: 02-28-2023 Providing care according to standard Start: 02-28-2023 Referral to cement storage worker [facility] Start: 02-28-2023 Start: 02-28-2023 Following clinical pathway protocol Start: 02-28-2023 Verification routine Start: 02-28-2023 Admission procedure Start: 02-28-2023 Hospital admission, emergency, from emergency room, medical nature Start: 08-13-2022 Patient discharge Start: 08-12-2022 Start: 08-11-2022 Following clinical pathway protocol Start: 08-11-2022 Assessment of risk of venous thromboembolism Start: 08-11-2022 Elevation of affected extremity Start: 08-11-2022 Fall prevention Start: 08-11-2022 Incentive spirometry Start: 08-11-2022 Inhalation therapy procedure Start: 08-11-2022 Insertion of catheter into peripheral vein Start: 08-11-2022 Introduction of urinary catheter Start: 08-11-2022 Measuring intake and output [facility] Start: 08-11-2022 Notification of physician [facility] Start: 08-11-2022 Oxygen therapy Start: 08-11-2022 Patient education Start: 08-11-2022 Providing care according to standard Start: 08-11-2022 Provision of activity privileges Start: 08-11-2022 Referral to service Start: 08-11-2022 Start: 08-11-2022 Viral nucleic acid assay [facility] Start: 08-11-2022 Admission procedure Start: 03-28-2017 End: 03-28-2017 Appointment Appointment [facility] Work Phone: Patient Education ED Diarrhea, U nknown Cause Work Phone: Patient referral [facility] Work Phone: Respiratory Panel (PCR) Respirat ory Panel (PCR) Respiratory pathogen s DNA and RNA 12b panel - Unspecified specimen by NICHOLE with probe detection SARS-CoV-2 (COVID-19 ) Ag [Presence] in Respiratory specimen by Rapid immunoassay [facility] Work Phone: Immunizations Immunization Date Immunization Notes Care Provider Ye sepulveda 12-05-2022 pneumococcal polysaccharide vaccine, [address] Neville Serrano Work Phone: 07-07-2020 [facility] 06-09-2020 Covid [facility] Payers Date Payer Category Payer Self-pay [id number] 2015 Unknown [id number] 2000 Medicare [id number] 2000 Medicare [id number] [facility] [id number] Unknown [id number] 2.16.8 [id number] Unknown [id number] 2.16.8 [id number] Unknown [id number] 2.16.8 [id number] Unknown [id number] 2.16.8 [id number] Unknown [id number] 2.16.8 [id number] Unknown [id number] 2.16.8 [id number] Unknown [id number] 2.16.8 [id number] Unknown [id number] 2.16.8 [id number] Unknown [id number] 2.16.8 [id number] Unknown [id number] 2.16.8 [id number] Unknown [id number] 2.16.8 [id number] Social History Date Type Detail Facility Start: 12-02-2019 End: 08-13-2023 Tobacco smoking status NHIS Unknown if ever smoked Start: 1935 Sex Assigned At Female [facility] Start: 04-25-2024 End: 04-25-2024 Tobacco smoking status NHIS Never smoked tobacco (finding) Start: 07-13-2024 Sex Female (finding) [facility] Sex Female [facility] Medical Equipment Procedure Code Equipment Code Equipment Origin al Text Equipment Identifier Dates Drug-eluting coronary artery stent, brj-owjfgmficyajf-vb lymer-coated [id number] FDA Start: 03-03-2023 Goals Date Patient Goal Desired Activity /State Functional Status Date Assessment Result Facility 04-26-2024 Functional status D[facility]et [facility] Work Phone: 03-08-2023 Functional status Ambulates;Bathroom Priv ilege Work Phone: 03-04-2023 Functional status Activity Ability [facility] Work Phone: 03-04-2023 Functional status Bathroom Privilege [facility] Work Phone: 08-13-2022 Functional status Activity Ability [facility] Work Phone: Mental Status Date Assessment Result Facility 04-26-2024 Cognitive function Voice/Name [facility] Work Phone: 03-08-2023 Cognitive function Voice/Name [facility] Work Phone: 03-07-2023 Cognitive function Level Of Cons ciousness Awake;Alert;Appropriate;Follow s Commands Work Phone: 03-04-2023 Cognitive function Voice/Name [facility] Work Phone: 02-28-2023 Cognitive function Voice/Name [facility] Work Phone: 08-13-2022 Cognitive function Voice/Name [facility] Work Phone: Clinical Notes 08-11-2022 to 02-22-2025 Note Date & Type Note Facility 02-22-2025 Progress note [facility] 02-22-2025 Progress note Note Date/Time February 22, 2025 4:39pm [facility] [place] [facility] [address] [place] [address] OFFICE VISIT Date of Service: 02/22/25 MR#: [id number] Acct: [id number] Name: EUGENIA MOMIN Rep #: [id number] : 1935 Provider: DUSTIN Bhatt Age/Sex: 89/F Location[facility] Status: Signed HPI HPI History [...] and asked to follow-up. 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 Follow Up: 9 Months (BURGLAR ALARM OPERATOR/PA) Coding Level of Care Code Off vis,est,level [...] Cosigner Signature: Date (if applicable) CC: ~ [facility] Work Phone: 1(769) 134-915412-23-2024 [facility] Medical Records Department [address] [place] [place] [address] Discharge Summary 04/26/24 1404 MR#: [id number] Acct: [id number] Name: EUGENIA MOMIN Rep #: [id number] : 1935 88 From: Tien Varma MD PCP: Dr. Neville Serrano MD Status:ADM IN Location: [place] [id number] Providers Date of Admission: 04/25/24 Date of [...] to 50 mg daily. Advised follow-up in [place] cardiology with Dr. Bal. 2. Hypothyroidism ??? [...] be Pes anserinus tendinitis or burisits. Advised [id number] Motrin 400 mg 3 times daily as [...] / Lab / Microb (more content not included)... 04-25-2024 Evaluation note* Diagnosis Onset Date Resolution Status Admit Date CKD (chronic kidney disease) , stage III chronic April 25, 2 024 6:31am Hypoxemia chronic April 25, 2024 6:31am Arteriosclerotic coronary artery disease inactive April 25, 2 024 6:31am CHF (congestive heart failure) inact glo April 25, 2024 6:31am Work Phone: 1(132) 770-207611-04-2023 Discharge summary Author John Pickett March 08, 2023 9:57am Note Date/Time March 08, 2023 9 :45am [facility] [address] [place] [address] Discharge Summary 03/08/23 0943 MR#: [id number] Acct: [id number] Name: EUGENIA MOMIN Rep #:[id number] : 1935 87 From: John Pickett MD PCP: Dr. Neville Serrano MD Status:ADM I NO Location: [place] [address] Providers Date of Admission: 03/07/23 Date of [...] - Requested for PT OT eval and social organization professor to assist with discharge planning 10. Chronic [...] % (Auto) 58.9, Lymph % (Auto) 27.0, Hettinger % (Auto) 8.9, Eos % (Auto) 3.9, [...] Self Care Charges/Coding Visit Charges Inpatient E&M: 45323 Disch Hosp >30min 03/08/23 0957 <Electronically signed by John Pickett MD> Cosigner Signature (if applicable): CC: Dr. John Pickett MD; Dr. Neville Serrano MD~ Signed Work Phone: 1(637) 691-340711-04-2023 Progress note Author John Pickett March 08, 2023 9:43am Note Date/Time March 08, 2023 7 :17am [facility] Medical [facility] Department [address] [place] [address] [place] [address] Progress Note - Hospitalist 03/08/23 0716 MR#: [id number] Acct: [id number] Name: EUGENIA MOMIN Rep #:[id number] : 1935 87 From: John Pickett MD PCP: Dr. Neville Serrano MD Status:ADM I NO Location: [place] [address] Reason for Visit Reason for Visit: Diagnoses [...] - Requested for PT OT eval and social organization professor to assist with discharge planning 10. Chronic [...] 50 Minutes Charges/Coding Visit Charges Inpatient E&M: 52482 Subs Hosp L2 03/08/23 0943 <Electronically signed by John Pickett MD> Cosigner Signature (if applicable): CC: ~ Signed Work Phone: 1(536) 768-353611-03-2023 Consult note Author Connie Cortez March 07, 2023 2:05pm Note Date/Time March 07, 2023 2 :01pm [facility] [address] [place] [address] Consultation - Cardiology 03/07/23 1401 MR#: [id number] Acct: [id number] Name: EUGENIA MOMIN Rep #:[id number] : 1935 87 From: Connie reyes MD PCP: Dr. Neville Serrano MD Status:ADM I NO Location: [place] [address] Assessment & Plan Assessment/Plan (1) Elevated troponin [...] Chest heaviness, shortness of breath HPI Narrative: EUGENIA MOMIN, is a 87 F who [...] else is negative except that in HPI [facility] Medical History (Updated 03/07/23 @ 14:04 by [...] Applicable: No Charges/Coding Visit Charges Inpatient E&M: 83682 Subs Hosp L2 Objective Data Vital Signs: [...] 76.3 H, Lymph % (Auto) 14.4 L, Hettinger % (Auto) 6.2, Eos % (Auto) 2.1, [...] 76.3 H, Lymph % (Auto) 14.4 L, Hettinger % (Auto) 6.2, Eos % (Auto) 2.1, [...] Iron Saturation 14.3 L, Ferritin 212, B-Natriuretic Hkxzgvt578.7 H Rhythm: EKG: ECHO: Stress Test: Cardiac [...] Rogers MD; Dr. Connie Cortez MD; Dr. Neivlle Serrano MD~ Signed Work Phone: [phone]) [phone] Progress note [facility] March 07, 2023 10:49am Note Date/Time March 07, 2023 7 :22am [facility] System Medical Records Department [address] [place] [address] Progress Note 03/07/23720 MR#: [id number] Acct: [id number] Name: EUGENIA MOMIN Rep #:[id number] : 1935 87 From: John Pickett MD PCP: Dr. Neville Serrano MD Status:ADM I NO Location: [place] [address] Progress Note Patient is an 87-year-old lady [...] - Requested for PT OT eval and social organization professor to assist with discharge planning 10. Chronic [...] documentation, 50 Minutes Visit Charges Inpatient E&M: 64692 [facility] Hosp 03/07/23 1049 <Electronically signed by John Pickett MD> John Pickett MD Cosigner Signature (if applicable): CC: ~ Signed Work Phone: 1([phone]) 441-217211-03-2023 Discharge summary Author Tomer Irvin March 07, 2023 8:57am Note Date/Time March 07, 2023 4 :48am [facility] Medical Records Department [address] [place] [address] Emergency Department Summary 03/07/23 MR#: [id number] Acct: [id number] Name: MOMINEUGENIA Rep #:[id number] : 1935 87 From: Tomer Irvin MD PCP: Dr. Neville Serrano MD Status:ADM I NO Location: [place] [address]- 1 HPI History of Present Illness Chief [...] did not go away, progressing all night. [facility] Medical History (Updated 03/07/23 @ 06:13 by [...] (Updated 03/07/23 @ 06:[address] Tomer Irivn MD) History of carpal tunnel release History [...] 76.3 H Lymph % (Auto) 14.4 L Hettinger % (Auto) 6.2 Eos % (Auto) 2.1 [...] Management Discussion w/another healthcare provider: Hospitalist and Frame Runner (Cardiology) Discharge Plan Triage Chief Complaint: Chest [...] Provider] - Disposition Disposition: Acute Care Hospital [facility] What to do if you have Problems For any increased pain, shortness of breath, bleeding, nausea or vomiting, chestpain, or any unexpected problems, contact your Primary Care Provider. Call [facility] ([phone]) or report to the closest Emergency Room. Call 911 if necessary. 03/07/23 0857 <Electronically signed by Tomer Irvin MD> Cosigner Signature (if applicable): CC: Dr. Neville Serrano MD ~ Signed Work Phone: 1([phone]) 489-352911-03-2023 History and physical note Author Marina Rogers March 07, 2023 6:48am Note Date/Time March 07, 2023 6 :24am [facility] Medical Records Department [address] [place] [address] H&P Exam - Hospitalist 03/07/23 0621 MR#: [id number] Acct: [id number] Name: EUGENIA MOMIN Rep #:[id number] : 1935 87 From: Marina Rogers MD [...] PCI performed who now re-presents to the [facility] ED on 03/07/23 with nonpleuritic chest heaviness [...] ED patient ministered normal saline, morphine, Zofran. [facility] Medical History (Updated 03/07/23 @ 06:[address] Mairna Rogers MD) (HFpEF) heart failure with preserved ejection fraction Anxiety and depression Arteriosclerotic coronary artery disease CHF (congestive heart failure) CKD (chronic kidney disease), stage III HLD (hyperlipidemia) Hypertension Hypothyroidism Myocardial infarct Non-smoker Obesity Home Medications paroxetine HCl 40 mg tablet 40 mg PO DAILY mental health 08/11/22 [History Last Taken 02/27/23] aspirin 81 mg tablet,delayed release 81 mg PO BREAKFAST heart [facility] tabs 08/13/22 [Rx Last Taken 02/28/23] [...] 76.3 H, Lymph % (Auto) 14.4 L, Hettinger % (Auto) 6.2, Eos % (Auto) 2.1, [...] PCI performed who now re-presents to the [facility] ED on 03/07/23 with nonpleuritic chest heaviness [...] Code status. Charges/Coding Visit Charges Inpatient E&M: 78651 Init Hosp L3 03/07/23 0648 <Electronically signed by Marina Rogers MD> Cosigner Signature (if applicable): CC: Dr. Marina Rogers MD; Dr. Neville Serrano MD~ Signed Work Phone: 1([phone]) 610-388811-03-2023 History and physical note Author [facility] March 07, 2023 6:48am Note Date/Time March 07, 2023 6 :24am [facility] Medical Records Department [address] [place] [address] H&P Exam - Hospitalist 03/07/23 0621 MR#: [id number] Acct: [id number] Name: EUGENIA MOMIN Rep #:[id number] : 1935 87 From: Marina Rogers MD [...] PCI performed who now re-presents to the [facility] ED on 03/07/23 with nonpleuritic chest heaviness [...] ED patient ministered normal saline, morphine, Zofran. [facility] Medical History (Updated 03/07/23 @ 06:44 by [...] tablet,delayed release 81 mg PO BREAKFAST heart [facility] tabs 08/13/22 [Rx Last Taken 02/28/23] [...] 76.3 H, Lymph % (Auto) 14.4 L, Hettinger % (Auto) 6.2, Eos % (Auto) 2.1, [...] PCI performed who now re-presents to the [facility] ED on 03/07/23 with nonpleuritic chest heaviness [...] Code status. Charges/Coding Visit Charges Inpatient E&M: 36317 Init Hosp L3 03/07/23 0648 <Electronically signed by Marina Rogers MD> Cosigner Signature (if applicable): CC: Dr. Marina Rogers MD; Dr. Neville Serrano MD~ Signed Work Phone: 1([phone]) [phone] Discharge summary Author John Pickett March 04, 2023 12:50pm Note Date/Time March 04, 2023 1 1:28am [facility] Medical Records Department [address] [place] [address] Discharge Summary 03/04/23 1128 MR#: [id number] Acct: [id number] Name: EUGENIA MOMIN Rep #:[id number] : 1935 87 From: John Pickett MD PCP: Dr. Neville Serrano MD Status:ADM I N Location: [place] [address] Providers Date of Admission: 02/28/23 Date of [...] % (Auto) 58.0, Lymph % (Auto) 28.5, Hettinger % (Auto) 8.8, Eos % (Auto) 3.7, [...] Jonas at discharge?: Yes Done w/ Acute [place] measure.: Yes Documented LVEF (%): 50 Discharge [...] Self Care Charges/Coding Visit Charges Inpatient E&M: 41159 Disch Hosp >30min 03/04/23 1250 <Electronically signed by John Pickett MD> Cosigner Signature (if applicable): CC: Dr. John Pickett MD; Dr. Neville Serrano MD~ Signed Work Phone: [phone]) [phone] Progress note Author Jeovanny Bal March 04, 2023 8:56am Note Date/Time March 04, 2023 8 :56am [facility] Medical Records Department [address] [place] [address] Progress Note - Cardiology 03/04/23 0854 MR#: [id number] Acct: [id number] Name: EUGENIA MOMIN Rep #:[id number] : 1935 87 From: Jeovanny Bal MD PCP: Dr. Neville Serrano MD Status:ADM I N Location: [place] [address] Subjective Subjective Patient seen and evaluated. Appears [...] % (Auto) 58.0, Lymph % (Auto) 28.5, Hettinger % (Auto) 8.8, Eos % (Auto) 3.7, [...] % (Auto) 58.0, Lymph % (Auto) 28.5, Hettinger % (Auto) 8.8, Eos % (Auto) 3.7, [...] Cosigner Signature (if applicable): CC: ~ Signed Work Phone: 1([phone]) 269-491810-30-2023 Evaluation note* Diagnosis Onset Date Resolution Status HTN (hypertension), benign a cute Stented coronary artery March 03, 2023 acute HLD (hyperlipidemia) chronic Mitral regurgitation chronic Work Phone: 1(678) 367-636310-30-2023 Evaluation note* Diagnosis Onset Date Resolution Status Admit Date HTN (hypertension), benign acute February 22, 2025 3:03pm Stented coronary artery March 03, 2023 acut e February 22, 2025 3:03pm HLD (hyperlipidemia) chronic 2024 3:03pm Mitral regurgitation chronic 2024 3:03pm [facility] Work Phone: 1([phone]) 686-155910-30-2023 Progress note Author Jeovanny Bal March 03, 2023 11:37am Note Date/Time March 03, 2023 1 1:17am [facility] Medical Records Department [address] [place] [address] Progress Note - Cardiology 03/03/23 1114 MR#: [id number] Acct: [id number] Name: EUGENIA MOMIN Rep #:[id number] : 1935 87 From: Jeovanny Bal MD PCP: Dr. Neville Serrano MD Status:ADM I N Location: [place] [address] Subjective Subjective Patient seen and evaluated. Underwent [...] Cosigner Signature (if applicable): CC: ~ Signed Work Phone: 1(805) 147-579910-30-2023 Progress note Author Antwon Peguero March 03, 2023 10:28am Note Date/Time March 03, 2023 1 0:28am [facility] Medical Records Department [address] [place] [address] Progress Note - Hospitalist 03/03/23 1027 MR#: [id number] Acct: [id number] Name: EUGENIA MOMIN Rep #:[id number] : 1935 87 From: Antwon alvarez MD PCP: Dr. Neville Serrano MD Status:ADM I N Location: [place] [address] Subjective Subjective Doing well, no chest pain [...] Heparin drip Charges/Coding Visit Charges Inpatient E&M: 36653 Subs Hosp L2 03/03/23 1028 <Electronically signed by Antwon Peguero MD> Cosigner Signature (if applicable): CC: ~ Signed Work Phone: 1(893) 583-655610-29-2023 Progress note Author Antwon Peguero March 02, 2023 10:24am Note Date/Time March 02, 2023 1 0:24am [facility] Medical [facility] Department [address] [place] [address] Progress Note - Hospitalist 03/02/23 1024 MR#: [id number] Acct: [id number] Name: EUGENIA MOMIN Rep #:[id number] : 1935 87 From: Antwon alvarez MD PCP: Dr. Neville Serrano MD Status:ADM I N Location: [place] [address] Subjective Subjective Doing very well today, no [...] % (Auto) 49.0, Lymph % (Auto) 37.3, Hettinger % (Auto) 9.5, Eos % (Auto) 3.1, [...] Heparin drip Charges/Coding Visit Charges Inpatient E&M: 21962 Subs Hosp L2 03/02/23 1024 <Electronically signed by Antwon Peguero MD> Cosigner Signature (if applicable): CC: ~ Signed Work Phone: 1([phone]) 102-177510-28-2023 Consult note Author Georges Mcdonald March 01, 2023 1:07pm Note Date/Time March 01, 2023 1 :07pm [facility] Medical Records Department [address] [place] [address] Consultation - Cardiology 03/01/23 1302 MR#: [id number] Acct: [id number] Name: EUGENIA MOMIN Rep #:[id number] : 1935 87 From: Georges Mcdonald MD PCP: Dr. Neville Serrano MD Status:ADM I N Location: [place] [address] Assessment & Plan Assessment/Plan (1) Non-ST elevated [...] the same on Friday with her primary cement storage worker, Dr. Bal. (2) CKD (chronic kidney disease), [...] breath. No diaphoresis. Presently she is asymptomatic. [facility] Medical History (Updated 03/01/23 @ 13:05 by [...] hr 02/28/23 13:55: Troponin I High Sens 60005 H* 02/28/23 17:47: PT 13.6, INR 1.0, APTT 23.4 L, Troponin I High Sens 08439 H* 03/01/23 00:42: APTT 193.5 H* 03/01/23 06:17: WBC 9.3, RBC 3.92 L, Hgb 11.7 L, Hct 36.3 L, MCV 92.6, MCH 29.8,MCHC 32.2, RDW Std Deviation 43.2, RDW Coeff of Danelle 12.8, Plt Count 212, MPV 11.2, Immature Gran % (Auto) 0.400, Neut % (Auto) 52.9, Lymph % (Auto) 34.2, Hettinger % (Auto) 10.0, Eos % (Auto) 1.9, [...] % (Auto) 52.9, Lymph % (Auto) 34.2, Hettinger % (Auto) 10.0, Eos % (Auto) 1.9, [...] Mcdonald MD; Dr. Neville Serrano MD~ Signed Work Phone: 1([phone]) 980-291810-28-2023 Progress note Author Antwon Peguero March 01, 2023 12:22pm Note Date/Time March 01, 2023 1 2:22pm [facility] Medical [facility] Department [address] [place] [address] Progress Note - Hospitalist 03/01/23 1220 MR#: [id number] Acct: [id number] Name: EUGENIA MOMIN Rep #:[id number] : 1935 87 From: Antwon alvarez MD PCP: Dr. Neville Serrano MD Status:ADM I N Location: [place] [address] Subjective Subjective Doing well, chest pain is [...] hr 02/28/23 13:55: Troponin I High Sens 52197 H* 02/28/23 17:47: PT 13.6, INR 1.0, APTT 23.4 L, Troponin I High Sens 14285 H* 03/01/23 00:42: APTT 193.5 H* 03/01/23 06:17: WBC 9.3, RBC 3.92 L, Hgb 11.7 L, Hct 36.3 L, MCV 92.6, MCH 29.8,MCHC 32.2, RDW Std Deviation 43.2, RDW Coeff of Danelle 12.8, Plt Count 212, MPV 11.2, Immature Gran % (Auto) 0.400, Neut % (Auto) 52.9, Lymph % (Auto) 34.2, Hettinger % (Auto) 10.0, Eos % (Auto) 1.9, [...] Heparin drip Charges/Coding Visit Charges Inpatient E&M: 55692 Subs Hosp L2 03/01/23 1222 <Electronically signed by Antwon Peguero MD> Cosigner Signature (if applicable): CC: ~ Signed Work Phone: 1(184) 328-660410-27-2023 History and physical note Author Antwon Peguero February 28, 2023 4:56pm Note Date/Time February 28, 2023 4 :56pm [facility] Medical Records Department [address] [place] [address] H&P Exam - Hospitalist 02/28/23 1650 MR#: [id number] Acct: [id number] Name: EUGENIA MOMIN Rep #:[id number] : 1935 87 From: Antwon alvarez MD PCP: Dr. Neville Serrano MD Status:ADM I N Location: [place] [address] HPI - General General Date of Admission: [...] any significant radiation. No lightheadedness or dizziness. [facility] Medical History (Updated 02/28/23 @ 14:47 by [...] % (Auto) 68.0, Lymph % (Auto) 24.0, Hettinger % (Auto) 6.7, Eos % (Auto) 0.5, [...] H, Calcium 8.9, Troponin I High Sens 48993 H* 02/28/23 13:55: Troponin I High Sens 58348 H* Radiology Impression Chest X-Ray 02/28/23 10:55 [...] with colleagues Charges/Coding Visit Charges Inpatient E&M: 97935 Init Hosp L3 02/28/23 6490 <Electronically signed by Antwon Peguero MD> Cosigner Signature (if applicable): CC: Dr. Antwon Peguero MD; Dr. Neville Serrano MD~ Signed Work Phone: [phone] Discharge summary Author Alphonso Thomas February 28, 2023 1:52pm Note Date/Time February 28, 2023 1 0:43am [facility] Department [address] [place] [address] Emergency Department Summary 02/28/23 MR#: [id number] Acct: [id number] Name: EUGENIA MOMIN Rep #:[id number] : 1935 87 From: Alphonso Thomas MD PCP: Dr. Neville Serrano MD Status:ADM I N Location: [address] History of Present Illness Chief Complaint: [...] Patient states he has never had an WY. There is no record of her having an WY. She denies history of hiatal hernia, reflux [...] Marfan's Syndrome, Hypertension or Family History PFSH PFS Medical History Anxiety and depression CHF (congestive [...] % (Auto) 68.0 Lymph % (Auto) 24.0 Hettinger % (Auto) 6.7 Eos % (Auto) 0.5 [...] H Calcium 8.9 Troponin I High Sens 28972 H* Radiography Chest X-Ray - ED: 1 [...] The EKG in my opinion is normal. NC interval is 176 milliseconds. QRS duration 82 ms. QT duration 414 ms. [place] is normal. Computer reads and ossific changes.) Management Discussion w/another healthcare provider: Hospitalist and Frame Runner (Case discussed with Dr. Mcdonald. He would [...] review of prior records), Discussing w/Patient &/or Family/Correction Officer Head, Discussing w/Consultants (Discussed with cardiology and hospitalist for admission) and Arranging Admission or Transfer Discharge Plan Dx/Rx/DC Orders Clinical Impression: Non-ST elevated myocardial infarction, HTN (hypertension), benign, HLD (hyperlipidemia), Hypothyroidism, CKD (chronic kidney disease), stage III Disposition Disposition: Acute Care Hospital [facility] What to do if you have Problems For any increased pain, shortness of breath, bleeding, nausea or vomiting, chestpain, or any unexpected problems, contact your Primary Care Provider. Call [facility] ([phone]) or report to the closest Emergency Room. Call 911 if necessary. 02/28/23 1352 <Electronically signed by Alphonso Thomas MD> Cosigner Signature (if applicable): CC: Dr. Neville Serrano MD ~ Signed Work Phone: 1(856) 805-389310-27-2023 Discharge summary Author Alphonso Thomas February 28, 2023 1:52pm Note Date/Time February 28, 2023 1 0:43am [facility] Medical Records Department [address] [place] [address] Emergency Department Summary 02/28/23 MR#: [id number] Acct: [id number] Name: EUGENIA MOMIN Rep #:[id number] : 1935 87 From: Alphonso Thomas MD PCP: Dr. Neville Serrano MD Status:ADM I N Location: [address] History of Present Illness Chief Complaint: [...] Patient states he has never had an WY. There is no record of her having an WY. She denies history of hiatal hernia, reflux [...] Marfan's Syndrome, Hypertension or Family History PFSH PFS Medical History Anxiety and depression CHF (congestive [...] % (Auto) 68.0 Lymph % (Auto) 24.0 Hettinger % (Auto) 6.7 Eos % (Auto) 0.5 [...] H Calcium 8.9 Troponin I High Sens 89817 H* Radiography Chest X-Ray - ED: 1 [...] The EKG in my opinion is normal. NC interval is 176 milliseconds. QRS duration 82 ms. QT duration 414 ms. [place] is normal. Computer reads and ossific changes.) Management Discussion w/another healthcare provider: Hospitalist and Frame Runner (Case discussed with Dr. Mcdonald. He would [...] review of prior records), Discussing w/Patient &/or Family/Correction Officer Head, Discussing w/Consultants (Discussed with cardiology and hospitalist for admission) and Arranging Admission or Transfer Discharge Plan Dx/Rx/DC Orders Clinical Impression: Non-ST elevated myocardial infarction, HTN (hypertension), benign, HLD (hyperlipidemia), Hypothyroidism, CKD (chronic kidney disease), stage III Disposition Disposition: Acute Care Hospital [facility] What to do if you have Problems For any increased pain, shortness of breath, bleeding, nausea or vomiting, chestpain, or any unexpected problems, contact your Primary Care Provider. Call [facility] ([phone]) or report to the closest Emergency Room. Call 911 if necessary. 02/28/23 1352 <Electronically signed by Alphonso Thomas MD> Cosigner Signature (if applicable): CC: Dr. Neville Serrano MD ~ Signed Work Phone: 1(106) 718-544204-11-[address] Varma August 13, 2022 8:45am Note Date/Time August 12, 2022 8:2 5am [facility] Medical [facility] Department [address] [place] [address] Progress Note - Hospitalist 08/12/2215 MR#: [id number] Acct: [id number] Name: EUGENIA MOMIN Rep #:[id number] : 1935 86 From: Tien Mckeon PCP: Dr. Neville Serrano MD Status:ADM I N Location: [place] [address] Reason for Visit Reason for Visit: Diagnoses Heart failure, unspecified (08/11/22) Subjective Subjective Follow-up for shortness of breath and concern for heart failure. Objective Data Objective Data Vital Signs: Vital Signs Temp Pulse Resp BP Pulse Ox O2 Del Method 98.2 F 68 18 128/49 H 93 Room Air 08/11/22 23:25 08/11/22 23:25 08/11/22 23:25 08/11/22 23:25 08/12/22 07:42 [...] (Auto) 70.9 H, Lymph % (Auto) 20.9, Hettinger % (Auto) 6.6, Eos % (Auto) 0.8, [...] (Auto) 45.2 L, Lymph % (Auto) 40.9, Hettinger % (Auto) 10.8 H, Eos % (Auto) [...] 14:06 EDT Reading Location ID and State: [facility] / [place] , Service support , Chest CTA 08/11/22 [...] Prophylaxis: Lovenox. #9 code CODE status: Patient HCPOA is her 2 daughters 1 of which [...] (Auto) 70.9 H, Lymph % (Auto) 20.9, Hettinger % (Auto) 6.6, Eos % (Auto) 0.8, [...] (Auto) 45.2 L, Lymph % (Auto) 40.9, Hettinger % (Auto) 10.8 H, Eos % (Auto) [...] thoracic spine. Charges/Coding Visit Charges Inpatient E&M: 98987 Subs Hosp L2 08/12/22 1704 <Electronically signed [...] Cosigner Signature (if applicable): cc: ~* Signed Work Phone: 1(386) 152-335304-11-[address] Varma August 13, 2022 8:43am Note Date/Time August 13, 2022 8:3 7am [facility] Medical Records Department [address] [place] [address] Discharge Summary 08/13/2234 MR#: [id number] Acct: [id number] Name: EUGENIA MOMIN Rep #:[id number] : 1935 86 From: Tien Mckeon PCP: Dr. Neville Serrano MD Status:ADM I N Location: [place] [address] Providers Date of Admission: 08/11/22 Date of [...] mild to moderate AI. Follow up with cement storage worker Dr. Bal in 1 month. #2.? Hypertension: Continue home regimen including atenolol, norvasc, PRN hydralazine. 08/13: As mentioned above. Norvasc discontinued #3.? Hyperlipidemia: [...] examined on the day of discharge. On court recording monitor sinus rhythm. Heart rate and blood pressure [...] Self Care Charges/Coding Visit Charges Inpatient E&M: 15342 Disch Hosp >30min 08/13/22 0843 <Electronically signed by Tien Varma MD> Cosigner Signature (if applicable): CC: Dr. Tien Varma MD; Dr. Neville Serrano MD~ Signed Work Phone: 1(268) 502-343804-11-[address] Varma August 13, 2022 8:34am Note Date/Time August 13, 2022 8:0 7am [facility] Medical Records Department [facility] [place] [address] Instructions for Home/Discharge Instructions 08/13/22805 MR#: [id number] Acct: [id number] Name: EUGENIA MOMIN Rep #:[id number] : 1935 86 From: Tien Mckeon PCP: [...] Visit: Acute on chronic HFpEF Attending Provider: [employer] Varma Primary Care Provider: Neville Serrano Chi [...] MD; Dr. Neville Serrano MD ~ Signed Work Phone: 1([phone]) 182-787004-09-2023 History and physical note Author Dr. Rogers August 11, 2022 5:23pm Note Date/Time August 11, 2022 4:14 pm [facility] Medical Records Department [address] [place] [address] History & Physical Exam 08/11/22 1602 MR#: [id number] Acct: [id number] Name: EUGENIA MOMIN Rep #:[id number] : 1935 86 From: Marina Rogers MD PCP: Dr. Neville Serrano MD Status:ADM I N Location: [place] [address] HPI - General General Date of Admission: 08/11/22 Date of Service: 08/11/22 Chief Complaint: Dyspnea, chest pain. HPI Narrative The patient is an 86 y/o F w/ PMHx: Anxiety and Depression, Obesity, Hypothyroidism, HTN, HLD, CKD stage III unclear subtype who presents to the [facility] ED on 08/11/22 with history of onset [...] (Auto) 70.9 H, Lymph % (Auto) 20.9, Hettinger % (Auto) 6.6, Eos % (Auto) 0.8, [...] III unclear subtype who presents to the [facility] ED on 08/11/22 with history of onset [...] 75 minutes. Charges/Coding Visit Charges Inpatient E&M: 95392 Init Hosp L3 Procedures Hospitalists Procedures: 23625 Advncd Care Plan 30 Min 08/11/22 1723 <Electronically signed by Marina Rogers MD> Cosigner Signature (if applicable): CC: Dr. Marina Rogers MD; Dr. Neville Serrano MD~ Signed Work Phone: [phone]) [phone] Amin August 11, 2022 4:22pm Note Date/Time August 11, 2022 1:25 pm [facility] Medical Records Department [address] [place] [address] Emergency Department Summary 08/11/22 MR#: [id number] Acct: [id number] Name: EUGENIA MOMIN Rep #:[id number] : 1935 86 From: Latoya Amin DO PCP: Dr. Neville Serrano MD Status:ADM I N Location: [place] [address] HPI History of Present Illness Chief Complaint: [...] (Auto) 70.9 H Lymph % (Auto) 20.9 Hettinger % (Auto) 6.6 Eos % (Auto) 0.8 [...] (Auto) Neut % (Auto) Lymph % (Auto) Hettinger % (Auto) Eos % (Auto) Baso % [...] Provider] - Disposition Disposition: Acute Care Hospital [facility] What to do if you have Problems For any increased pain, shortness of breath, bleeding, nausea or vomiting, chestpain, or any unexpected problems, contact your Primary Care Provider. Call [facility] ([phone]) or report to the closest Emergency Room. Call 911 if necessary. 08/11/22 1622 <Electronically signed by Latoya Amin DO> Cosigner Signature (if applicable): CC: Dr. Neville Serrano MD ~ Signed Work Phone: Evaluation noteNo assessment information available Work Phone: Evaluation note* Diagnosis Onset Date Resolution Status Chest pain acute CHF (congestive heart failure) acute Hypoxemia acute Work Phone: Evaluation note* Diagnosis Onset Date Resolution Status CHF (congestive heart failure) chronic Hypoxemia chronic Chest pain resolved HTN (hypertension), benign a cute Valvular heart disease acute CHF (congestive heart failure) chronic Work Phone: evaluation note* Diagnosis Onset Date Resolution Status HTN (hypertension), benign a cute Non-ST elevated myocardial infarction acute CKD (chronic kidney disease), stage III chronic HLD (hyperlipidemia) chronic Hypothyroidism chronic Work Phone: Evaluation note* Diagnosis Onset Date Resolution Status HTN (hypertension), benign a cute Mitral regurgitation acute Non-ST elevated myocardial infarction acute CKD (chronic kidney disease), stage III chronic HLD (hyperlipidemia) chronic Hypothyroidism chronic Work Phone: Evaluation note* Diagnosis Onset Date Resolution Status HTN (hypertension), benign a cute Mitral regurgitation acute Non-ST elevated myocardial infarction acute CKD (chronic kidney disease), stage III chronic HLD (hyperlipidemia) chronic Hypothyroidism chronic Chest pain acute Elevated troponin I level ac [place] Stented coronary artery March 03, 2023 acute CKD (chronic kidney disease), stage III chronic Work Phone: Evaluation note* Diagnosis Onset Date Resolution Status HTN (hypertension), benign a cute Mitral regurgitation acute Non-ST elevated myocardial infarction acute CKD (chronic kidney disease), stage III chronic HLD (hyperlipidemia) chronic Hypothyroidism chronic Chest pain acute Elevated troponin I level ac [place] Stented coronary artery March 03, 2023 acute CHF (congestive heart failure) chronic CKD (chronic kidney disease), stage III [facility] Work Phone: Evaluation note* Diagnosis Onset [...] acute HLD (hyperlipidemia) chronic Mitral regurgitation chronic [facility] Work Phone: Reason for referral (narrative)No reason for referral information [facility]al[facility] Work Phone: Chief Complaint and Reason for [...] CHEST PAIN CHEST PAIN CHEST PAIN S/P [facility] 03/04 NSTEMI Reason for Visit HTN (hypertension), [...] No December 02, 2019 7:22am Power of Instructional Design Technologist No [address], 202 0 7:22am Advance Directive Response Recorded Date/ Time Living Will No December 02, 2019 6:22am Power of Instructional Design Technologist No December 01 6:22am Advance Directive Response Recorded Date/ Time Name of Medical Power of Instructional Design Technologist [place]en [place] August 11, 2022 5:27pm Living Will Yes August 11, 2022 5:27pm Power of Instructional Design Technologist Yes August 11 5:27pm Advance Directive Response Recorded Date/ Time Living Will No February 28 2:37pm Power of Instructional Design Technologist No February 28, 2023 2:37pm Advance Directive Response Recorded Date/ Time Name of Medical Power of Instructional Design Technologist SARAH WADDELL March 07, 2023 4:35am Living Will Yes March 07 4:35am Power of Instructional Design Technologist Yes March 07, 2023 4:35am Advance Directive Response Recorded Date/ Time Name of Medical Power of Instructional Design Technologist SARAH WADDELL March 07, 2023 8:40am Living Will Yes March 07 8:40am Power of Instructional Design Technologist Yes March 07, 2023 8:40am Advance Directive Response Recorded Date/ Time Name of Medical Power of Instructional Design Technologist SARAH WADDELL March 07, 2023 7:40am Living Will Yes March 07 7:40am Power of Instructional Design Technologist Yes March 07, 2023 7:40am Advance Directive Response Recorded Date/ Time Living Will Yes March 07 8:40am Power of Instructional Design Technologist Yes March 07, 2023 8:40am Advance Directive Response Recorded Date/ Time Living Will No August 13, 2023 4:06am Power of Instructional Design Technologist No August 12 4:06am Advance Directive Response Recorded Date/ Time Living Will Yes April 25, 2 024 9:14am Power of Instructional Design Technologist Yes April 25, 2024 9:14am Name of Medical Power of Instructional Design Technologist Sarah Waddell April 25, 2024 9:14am Family [...] Primary Care Provider, Referring Provider Active Cathy HUSTON, PA Attending Provider Active Team Status: Active [...] 2025 End: February 22, 2025 Rebecca Bhatt NP, BURGLAR ALARM OPERATOR-C Attending physician Active Start: February 22, 2025 End: February 22, 2025 INFORMATION SOURCE (unrecogn ized section and content) DATE CREATED AUTHOR 02/25/2025 [facility] FOR RECORDS PERTAINING TO PATIENTS WHO ARE [...] BE BASED ON THE PRIMARY CLINICAL RECORDS. [employer] provides no warranty or guarantee of the accuracy or completeness of information in this document.
--- NOTE | 2025-03-30 18:48 | EKG12_ITS ---
Test Reason : gen ill Blood Pressure : */* mmHG Vent. Rate : 65 BPM Atrial Rate : 65 BPM P-R Int : 184 ms QRS Dur : 84 ms QT Int : 436 ms P-R-T Axes : 34 22 74 degrees QTcB Int : 453 ms Normal sinus rhythm Normal ECG Confirmed by SPEEDY HILL ([id number]), clinical editor EMILY CAMPO ([id number]) on 04/04/2025 6:28:39 AM Referred By: Confirmed By: SPEEDY HILL
--- NOTE | 2025-03-30 18:48 | CT_ITS ---
EXAM: CT Abdomen and Pelvis With Intravenous Contrast CLINICAL INDICATION: BAND LIKE EPIGASTRIC PAIN, NAUSEA AND DRY HEAVES TECHNIQUE: Axial computed tomography images of the abdomen and pelvis with intravenous contrast. This CT exam was performed using one or more of the following dose reduction techniques: automated exposure control, adjustment of the mA and/or kV according to patient size, and/or use of iterative reconstruction technique. RADIATION DOSE: CTDIvol = 31.9 mGy, DLP = 1147.5 MGy-cm COMPARISON: No relevant prior studies available. FINDINGS: LUNG BASES: Unremarkable. No mass. No consolidation. ABDOMEN: LIVER: Unremarkable. No mass. GALLBLADDER AND BILE DUCTS: Unremarkable. No calcified stones. No ductal dilation. PANCREAS: Unremarkable. No mass. No ductal dilation. SPLEEN: Unremarkable. No splenomegaly. ADRENALS: Unremarkable. No mass. KIDNEYS AND URETERS: Unremarkable. No solid mass. No hydronephrosis. STOMACH AND BOWEL: Colonic diverticulosis without acute diverticulitis. No obstruction. PELVIS: APPENDIX: Normal appendix. BLADDER: Unremarkable. No mass. REPRODUCTIVE: Unremarkable as visualized. ABDOMEN and PELVIS: INTRAPERITONEAL SPACE: Unremarkable. No free air. No significant fluid collection. BONES/JOINTS: Lytic lesion with bony density in the proximal right femur. Degenerative disc disease throughout the lumbar spine. Degenerative facet arthropathy throughout the lumbar spine, most prominent in the lower lumbar spine. No acute fracture. No dislocation. SOFT TISSUES: Unremarkable. VASCULATURE: Unremarkable. No abdominal aortic aneurysm. LYMPH NODES: Unremarkable. No enlarged lymph nodes. CT/Abdomen/Pelvis W IV Cont ONLY IMPRESSION: 1. Normal appendix. 2. Colonic diverticulosis without acute diverticulitis. 3. Degenerative changes lumbar spine as described. Reading Location: [id number]
[2025-03-30] MEDS: 0.9% Normal Saline (1000mL) 1,000 ML 1000 ML IV (19:05)
[2025-03-30 19:17] LABS: Hematocrit 38.4 % (37-47); Hemoglobin 12.7 g/dL (12.0-15.0); Immature Granulocytes Count 0.020 X10^3/uL (0.0-0.0); Mean Corp Hgb Conc 33.1 g/dL (32-36); Mean Corpuscular Volume 89.3 fL (81-99); Mean Platelet Vol. 10.5 fl (6.2-12.0); NRBC Flagged by Analyzer 0 % (0-5); Platelet Count 258 K/mm3 (150-450); RBC Distribution Width CV 12.5 % (11.6-14.6); RBC Distribution Width SD 40.9 fl (35.1-43.9); Red Blood Count 4.30 M/mm3 (4.2-5.4); White Blood Count 7.8 K/mm3 (4.4-11.0)
[2025-03-30 19:40] LABS: AST(SGOT) 14 U/L (<=31); Alanine Aminotransfer ALT/SGPT 9 U/L (<=34); Albumin, Serum 3.9 g/dL (3.4-4.8); Alkaline Phosphatase 69 U/L (35-104); Anion Gap 13 (5-15); BUN 16 mg/dL (4-19); BUN/Creat Ratio 14.2 RATIO (10-20); Calcium,Total 9.2 mg/dL (7.6-11.0); Carbon Dioxide 20.3 mmol/L (21.0-32.0); Chloride 99 mmol/L (98-108); Estimated Creatinine Clearance 38.97 ml/min (50-250); Globulin 2.9 g/dL (2.2-4.2); Glucose 126 mg/dL (70-99); Lipase 126 U/L (13-75); Potassium 4.0 mmol/L (3.3-5.1)
--- NOTE | 2025-03-30 19:50 | RAD_ITS ---
EXAM: XR Chest, 1 View CLINICAL INDICATION: NAUSEA, FEELS UNWELL, R/O PNA TECHNIQUE: Frontal view of the chest. COMPARISON: XR Chest dated 04/25/2024 FINDINGS: LUNGS AND PLEURAL SPACES: See below. HEART: Cardiomegaly with mild congestion. MEDIASTINUM: Unremarkable. Normal mediastinal contour. BONES/JOINTS: Unremarkable. No acute fracture. RAD/Chest PA and Lateral IMPRESSION: Cardiomegaly with mild congestion. Reading Location: [id number]
[2025-03-30 19:55] VITALS: BP 122/54; PULSE 65; O2SAT 96
[2025-03-30 20:07] LABS: Troponin T High Sensitivity 18 ng/L (<=14)
--- NOTE | 2025-03-30 20:27 | ED.RN ---
Daughter given update on Pt.
[2025-03-30 20:39] LABS: Mucous, Urine 0 SEEN /hpf (<or=2+); Red Blood Cells-Urine 0 SEEN /hpf (0-5); Squamous Epithelial Cells - UA 0 SEEN /hpf (5-10)
[2025-03-30 20:41] LABS: Color, Urine Yellow (Yellow); Glucose, Dipstick Normal (Normal); Ketone-Dipstick Negative (Negative); Leukocyte Esterase-Dipstick Negative /ul (Negative); Nitrite-Dipstick Negative (Negative); Occult Blood-Urine Negative /ul (Negative); Protein-Dipstick Negative (Negative); Specific Gravity, Urine 1.010 (1.002-1.030); Urine Bilirubin Dipstick Negative (Negative)
[2025-03-30 21:00] VITALS: BP 122/51; PULSE 67; RESP 18; O2SAT 97
[2025-03-30 21:26] LABS: Troponin T High Sens 2 HR 18 ng/L (<=14)
[2025-03-30 21:33] VITALS: BP 136/60; PULSE 67; RESP 16; TEMP 36.7; O2SAT 97
--- NOTE | 2025-03-30 23:43 | EX.ED.DYSGE1 ---
HPI History of Present Illness Chief Complaint: General Illness Narrative Narrative: Patient is a 89-year-old female presenting to the emergency department for nausea, dry heaving and diarrhea over the past 2 weeks that is now improved and not present today. Patient has a past medical history of CHF, mitral regurg, ID, hypertension, obesity, CKD, hypothyroidism, anxiety and depression. She states that she received a letter that said she should not take Paxil which she was previously on so she stopped taking this and since then has had nausea and dry heaving. States that she was here 10 days ago when it first started and had a negative workup and was discharged home. States since then she is continue to have symptoms. She reports that she has had watery diarrhea that is nonbloody however took antidiarrheal yesterday and has not had any episodes since. States that she feels like she has some epigastric discomfort but thinks this is from the dry heaving. Denies any sick contacts. Denies any fever, chills, headache, chest pain, shortness of breath, vomiting, dysuria or hematuria. States that she has Zofran at home but did not take this prior to coming. [facility] Medical History CHF (congestive heart failure) (HFpEF) heart failure with preserved ejection fraction Arteriosclerotic coronary artery disease Mitral regurgitation Non-smoker Myocardial infarct Hypertension Obesity Anxiety and depression CKD (chronic kidney disease), stage III Hypothyroidism HLD (hyperlipidemia) CHF (congestive heart failure) Home Medications ?Medication ?Instructions ?Recorded ?Last Taken ?Type rosuvastatin 40 mg tablet 40 mg PO DAILY cholesterol 06/24/23 03/29/25 History clopidogrel 75 mg tablet 75 mg PO DAILY anti platelet #90 02/12/24 03/30/25 Rx tabs spironolactone 50 mg tablet 50 mg PO DAILY 1 month #30 tabs 04/26/24 03/30/25 Rx levothyroxine 100 mcg tablet 100 mcg PO QDAY 08/12/24 03/30/25 History furosemide 40 mg tablet 40 mg PO QDAY diuretic 02/22/25 03/30/25 History metoprolol tartrate 25 mg tablet 25 mg PO Q12H blood pressure 02/22/25 03/30/25 History sacubitril 97 mg-valsartan 103 mg 1 tab PO BID 02/22/25 03/30/25 History tablet (Entresto) ondansetron 8 mg disintegrating 8 mg PO Q8H PRN nausea and 03/21/25 03/30/25 Rx tablet vomiting #15 tabs Allergy/AdvReac Type Severity Reaction Status Date / Time amlodipine Allergy Unknown PT UNSURE Verified 03/30/25 17:59 OF REACTION lisinopril AdvReac Intermediate Dry, Verified 03/30/25 17:59 hacking, constant cough atenolol AdvReac Abd Verified 03/30/25 17:59 cramps/diarrhea Family History Mother Heart disease Hypertension CHF (congestive heart failure) Father Heart disease Hypertension CHF (congestive heart failure) CAD (coronary artery disease) Myocardial infarction Surgical History Stented coronary artery (03/03/23) History of carpal tunnel release History of tonsillectomy and adenoidectomy Social History household members: none Smoking Status: Never smoker alcohol intake: never substance use type: does not use ROS ROS ED ROS Narrative See HPI EXAM Physical Exam Narrative Exam Narrative: Vital signs: Reviewed General: Alert and oriented x 3. No acute distress. Very anxious appearing. HEENT: Head is normocephalic and atraumatic, sinuses nontender, pupils equal round and reactive. Nares are patent. Oropharynx and throat exams normal. Neck: Supple without lymphadenopathy nontender Cardiovascular: Regular rate and rhythm, no murmurs. No rubs or gallops. Normal S1 and S2 Respiratory: Clear to auscultation bilaterally. No wheezes, rales, rhonchi Abdominal: Soft and nontender to palpation. Normal bowel sounds. No guarding or rebound. Nonsurgical abdomen Extremities: No tenderness. No bruising. Normal range of motion. Normal sensation. Skin: No rash or redness. Neurological: Cranial nerves II through XII are grossly intact. Normal strength and sensation. Normal cerebellar function The rest of the physical exam is unremarkable Const Vital Signs: 03/30/25 17:56 03/30/25 19:09 03/30/25 19:55 Temperature 98.1 F Temperature Source Oral Pulse Rate 79 65 Respiratory Rate 28 H Respiratory Effort Normal Non-Labored Respiratory Pattern Normal Blood Pressure 141/65 H 122/54 H Blood Pressure Mean 90 76 Pulse Ox 97 96 Oxygen Delivery Method Room Air Room Air 03/30/25 21:00 03/30/25 21:33 Temperature 98.1 F Temperature Source Pulse Rate 67 67 Respiratory Rate 18 16 Respiratory Effort Respiratory Pattern Blood Pressure 122/51 H 136/60 H Blood Pressure Mean 74 85 Pulse Ox 97 97 Oxygen Delivery Method Room Air MDM MDM MDM Narrative Medical decision making narrative: Patient is a 89-year-old female presenting to the emergency department for nausea and dry heaving. Patient was seen and examined. Vitals are stable. Patient resting bed comfortably no acute distress. Differential includes but is not limited to: Viral gastroenteritis, ACS, acid reflux, pancreatitis, colitis, diverticulitis, UTI, pneumonia, dehydration. I would not expect SSRI withdrawal symptoms 3 weeks out form stopping. Symptoms may be due to anxiety, she states nausea and dry heaving are typical of her anxiety symptoms. EKG shows normal sinus rhythm at a rate of 65 with no ischemic changes. No dysrhythmia. Patient given a fluid bolus and Zofran for her symptoms. CBC with no leukocytosis and a normal hemoglobin. CMP with very mild hyponatremia of 132, no other significant abnormalities. Normal liver functioning. Troponin and reflex mildly elevated 18 however no significant delta change. Lipase very mildly elevated at 126, does not meet the criteria for 3 times upper limit of normal. Urinalysis no evidence of urinary tract infection. CT of the abdomen pelvis shows normal appendix. Colonic diverticulosis without acute diverticulitis. Chest x-ray reviewed by myself, mild vascular congestion with cardiomegaly which was seen on prior. Radiology read in agreement. Viral swab negative. Patient reevaluated after the fluid bolus and Zofran and states that she is feeling much better. She was able to tolerate p.o. She has a prescription for Zofran at home she states but did not take it prior to coming. I did recommend follow-up with her primary care doctor to determine any changes to her anxiety medications as she discussed when I initially saw her. Patient discharged from the Emergency Department. I do not feel that the patient's evaluation reveals any acute reason for admission at this time. I instructed them to either follow-up with their primary care physician or promptly return to the Emergency Department for reevaluation should symptoms worsen or new symptoms develop. I explained what symptoms would indicate the need to return to the emergency department. Shared decision making was used. The patient voiced understanding of the treatment plan and is agreeable with it. Clinical impression Nausea History & Record Review Discussion w/independent historian: Patient Additional record(s) reviewed:: Prior ED visit and Prior labs Lab Data Attestation: I reviewed the patient's lab results. Labs: Laboratory Results - last 24 hr 03/30/25 03/30/25 03/30/25 19:07 20:20 21:00 WBC 7.8 RBC 4.30 Hgb 12.7 Hct 38.4 MCV 89.3 MCH 29.5 MCHC 33.1 RDW Std Deviation 40.9 RDW Coeff of Danelle 12.5 Plt Count 258 MPV 10.5 Immature Gran % (Auto) 0.300 Neut % (Auto) 71.5 H Lymph % (Auto) 19.7 [place] % (Auto) 7.4 Eos % (Auto) 0.5 Baso % (Auto) 0.6 Absolute Neuts (auto) 5.6 Absolute Lymphs (auto) 1.54 Nucleated RBC % 0 Sodium 132 L Potassium 4.0 Chloride 99 Carbon Dioxide 20.3 L Anion Gap 13 BUN 16 Creatinine 1.11 Estim Creat Clear Calc 38.97 L Est GFR (MDRD) Non-Af 48 L BUN/Creatinine Ratio 14.2 Glucose 126 H Calcium 9.2 Total Bilirubin 0.36 AST 14 ALT 9 Alkaline Phosphatase 69 Troponin T High Sens 18 H Troponin T Hi Sens 2 Hr 18 H Total Protein 6.8 Albumin 3.9 Globulin 2.9 Albumin/Globulin Ratio 1.3 Lipase 126 H Urine Color Yellow Urine Clarity Clear Urine pH 6.0 Ur Specific [place] 1.010 Urine Protein Negative Urine Glucose (UA) Normal Urine Ketones Negative Urine Occult Blood Negative Urine Nitrite Negative Urine Bilirubin Negative Urine Urobilinogen Normal Ur Leukocyte Esterase Negative Urine RBC 0 SEEN Urine WBC 0-5 SEEN Ur Squamous Epith Cells 0 SEEN Urine Bacteria 0 SEEN Urine Mucus 0 SEEN Radiography Chest X-Ray - ED: 2 View, Read by ED Physician, Unchanged and Cardiomegaly Diagnostic Testing: Clinical Impression(s) from Imaging Studies Abdomen/Pelvis CT 03/30/25 18:48 IMPRESSION: 1. Normal appendix. 2. Colonic diverticulosis without acute diverticulitis. 3. Degenerative changes lumbar spine as described. Reading Location: [facility] Chest X-Ray 03/30/25 19:50 IMPRESSION: Cardiomegaly with mild congestion. Reading Location: [facility] Discharge Plan Triage Chief Complaint: General Illness ED Provider: Roseann Tompkins Dx/Rx/DC Orders Clinical Impression: Nausea Instructions: Self-Care for Vomiting and Diarrhea Prescriptions: No Action rosuvastatin 40 mg tablet 40 mg PO DAILY levothyroxine 100 mcg tablet 100 mcg PO QDAY Patient Comments: [NO ORIGINAL SIG] sacubitril-valsartan [Entresto] 97-103 mg tablet 1 tab PO BID Patient Comments: [NO ORIGINAL SIG] metoprolol tartrate 25 mg tablet 25 mg PO Q12H furosemide 40 mg tablet 40 mg PO QDAY spironolactone 50 mg tablet 50 mg PO DAILY 30 Days Qty: 30 2RF Rx Instructions: Hold for serum potassium more than 5.0 ondansetron 8 mg tablet,disintegrating 8 mg PO Q8H PRN (Reason: nausea and vomiting) Qty: 15 0RF clopidogrel 75 mg tablet 75 mg PO DAILY Qty: 90 3RF Primary Care Provider: Neville Serrano Chi Referrals: Neville Serrano Chi, MD [Primary Care Provider, Geriatrics] - As soon as possible Activity Restrictions/Additional Instructions: If you become nauseous at home and take the Zofran that you already have. Call your primary care doctor on Friday to follow-up and discuss any medication changes. Your evaluation in the Emergency Department did not reveal any acute reason for admission. However, I want to emphasize that you may be early in the course of a disease process or illness even if it is not present. For this reason you should follow-up within 24 hours for reevaluation with either your primary care physician or if necessary back here in the Emergency Department. You should return to the Emergency Department immediately if your symptoms worsen or new symptoms develop. Print Language: Slovenian Disposition Disposition: Home, Self Care Discharge Date/Time: 03/30/25 21:47
== END 2025-03-30 21:47 | disposition home or self-care (01) ==
PROVIDERS: Emergency Provider Student in an Organized Health Care Education/Training Program; PCP Family Medicine Geriatric Medicine; Visit Provider Student in an Organized Health Care Education/Training Program
DX: R11.0 Nausea (principal); I13.0 Hypertensive heart and chronic kidney disease with heart failure and stage 1 through stage 4 chronic kidney disease, or unspecified chronic kidney disease; I50.32 Chronic diastolic (congestive) heart failure; N18.30 Chronic kidney disease, stage 3 unspecified; R19.7 Diarrhea, unspecified; R10.13 Epigastric pain; K57.30 Diverticulosis of large intestine without perforation or abscess without bleeding; E87.1 Hypo-osmolality and hyponatremia; I34.0 Nonrheumatic mitral (valve) insufficiency; I25.2 Old myocardial infarction; E66.9 Obesity, unspecified; E03.9 Hypothyroidism, unspecified; F41.9 Anxiety disorder, unspecified; F32.A Depression, unspecified; I25.10 Atherosclerotic heart disease of native coronary artery without angina pectoris; Z95.5 Presence of coronary angioplasty implant and graft; Z79.02 Long term (current) use of antithrombotics/antiplatelets; Z79.899 Other long term (current) drug therapy; Z79.890 Hormone replacement therapy
CPT/HCPCS: 71046; 74177; 80053; 81001; 83690; 84484; 85025; 87631; 93005; 96361; 96374; 99285; Q9967; A4216; J2405

== ENCOUNTER → 2025-04-12 | Outpatient (CLI) | payer MEDICARE, OTHER, SELFPAY ==
--- NOTE | 2025-04-12 17:05 | RAD_ITS ---
PROCEDURE: ABD INC DECUB AND/OR ERECT 04/12/2025 REASON FOR EXAM: ABDOMINAL PAIN TECHNIQUE: Procedure Code: RADABDMV Modality: DX Procedure: ABD INC DECUB AND/OR ERECT COMPARISON: Abdominal CT 03/30/2025. FINDINGS: Visualized bowel gas pattern is nonobstructive. No discernible free air. No unusual calcific densities. Multilevel degenerative changes of the spine, and asymmetric moderate right hip arthrosis. 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 RAD/Abd Inc Decub and/or Erect IMPRESSION: Nonobstructive gas pattern. No free air. 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 Reading Location: [id number]
[2025-04-12 17:11] LABS: Hematocrit 47.3 % (37-47); Hemoglobin 13.9 g/dL (12.0-15.0); Immature Granulocytes Count 0.010 X10^3/uL (0.0-0.0); Mean Corp Hgb Conc 29.4 g/dL (32-36); Mean Corpuscular Volume 99.6 fL (81-99); Mean Platelet Vol. 10.5 fl (6.2-12.0); NRBC Flagged by Analyzer 0 % (0-5); Platelet Count 240 K/mm3 (150-450); RBC Distribution Width CV 12.8 % (11.6-14.6); RBC Distribution Width SD 47.6 fl (35.1-43.9); Red Blood Count 4.75 M/mm3 (4.2-5.4); White Blood Count 6.0 K/mm3 (4.4-11.0)
[2025-04-12 17:33] LABS: AST(SGOT) 16 U/L (<=31); Alanine Aminotransfer ALT/SGPT 8 U/L (<=34); Albumin, Serum 4.2 g/dL (3.4-4.8); Alkaline Phosphatase 84 U/L (35-104); Amylase 103 U/L (28-100); Anion Gap 16 (5-15); BUN 16 mg/dL (4-19); BUN/Creat Ratio 9.9 RATIO (10-20); Calcium,Total 9.3 mg/dL (7.6-11.0); Carbon Dioxide 19.2 mmol/L (21.0-32.0); Chloride 102 mmol/L (98-108); Globulin 3.1 g/dL (2.2-4.2); Glucose 112 mg/dL (70-99); Lipase 89 U/L (13-75); Potassium 4.5 mmol/L (3.3-5.1)
== END | disposition home or self-care (01) ==
PROVIDERS: PCP Family Medicine Geriatric Medicine; Referring Provider Family Medicine Geriatric Medicine; Visit Provider Family Medicine Geriatric Medicine
DX: R10.9 Unspecified abdominal pain (principal); I10 Essential (primary) hypertension; R74.8 Abnormal levels of other serum enzymes; K52.9 Noninfective gastroenteritis and colitis, unspecified
CPT/HCPCS: 36415; 74019; 80053; 82150; 83690; 85025; 87493

== ENCOUNTER → 2025-04-15 | Outpatient (CLI) | payer MEDICARE, OTHER, SELFPAY ==
[2025-04-15 12:20] LABS: Hematocrit 38.9 % (37-47); Hemoglobin 12.6 g/dL (12.0-15.0); Immature Granulocytes Count 0.020 X10^3/uL (0.0-0.0); Mean Corp Hgb Conc 32.4 g/dL (32-36); Mean Corpuscular Volume 92.2 fL (81-99); Mean Platelet Vol. 10.8 fl (6.2-12.0); NRBC Flagged by Analyzer 0 % (0-5); Platelet Count 226 K/mm3 (150-450); RBC Distribution Width CV 12.8 % (11.6-14.6); RBC Distribution Width SD 43.6 fl (35.1-43.9); Red Blood Count 4.22 M/mm3 (4.2-5.4); White Blood Count 6.6 K/mm3 (4.4-11.0)
[2025-04-15 12:49] LABS: Amylase 94 U/L (28-100); Anion Gap 10 (5-15); BUN 15 mg/dL (4-19); BUN/Creat Ratio 13.0 RATIO (10-20); Calcium,Total 8.9 mg/dL (7.6-11.0); Carbon Dioxide 22.6 mmol/L (21.0-32.0); Chloride 103 mmol/L (98-108); Glucose 104 mg/dL (70-99); Lipase 61 U/L (13-75); Potassium 4.0 mmol/L (3.3-5.1)
== END | disposition home or self-care (01) ==
LOC: LAB 11:37
PROVIDERS: PCP Family Medicine Geriatric Medicine; Referring Provider Family Medicine Geriatric Medicine; Visit Provider Family Medicine Geriatric Medicine
DX: N17.9 Acute kidney failure, unspecified (principal); E87.1 Hypo-osmolality and hyponatremia; K85.90 Acute pancreatitis without necrosis or infection, unspecified
CPT/HCPCS: 36415; 80048; 82150; 83690; 85025

== ENCOUNTER 2025-04-22 07:06 | Inpatient (IN) | payer MEDICARE, OTHER, SELFPAY ==
[2025-04-22] VITALS (10 sets, daily range): BP systolic 112–161; BP diastolic 58–82; PULSE 62–89; RESP 16–23; TEMP 36.4–36.9; O2SAT 95–97; BMI 37.9; BMI 36.6
--- NOTE | 2025-04-22 07:14 | EDS_ITS ---
HPI HPI - GI History of Present Illness Chief Complaint: Nausea/Vomiting/Diarrhea Informant: patient Abdominal Pain/Flank Pain Onset: Month(s) Context: Gradual Onset Timing: Continuous Quality: - (Bloated) Location: Epigastric, RUQ and LUQ Worsened by: Nothing Relieved by: Nothing Nausea/Vomiting/Emesis GI Symptom: Positive for Nausea; Negative for Vomiting Diarrhea/Melena/Hematochezia GI Symptom: Positive for Diarrhea; Negative for Melena or Hematochezia Associated Symptoms Associated Symptoms: Negative for Dysuria, Frequency or Hematuria Narrative Narrative: Patient presents with nausea and diarrhea that has been persistent for months. Patient states she has a history of anxiety and is on Paxil. Patient states that her insurance does not want her to be on Paxil. Patient states she is currently being weaned off the Paxil and started on citalopram. Patient states she has been having some dry heaves. Patient denies any hematemesis or coffee- ground emesis. Patient denies any melena or hematochezia. Patient denies any dysuria, frequency, or hematuria. Patient states she feels bloated. Patient states that it is mainly over the upper abdomen. Patient denies any fevers or chills. Patient denies any chest pain or palpitations. Patient denies any shortness of breath or cough. [facility] Medical History CHF (congestive heart failure) (HFpEF) heart failure with preserved ejection fraction Arteriosclerotic coronary artery disease Mitral regurgitation Non-smoker Myocardial infarct Hypertension Obesity Anxiety and depression CKD (chronic kidney disease), stage III Hypothyroidism HLD (hyperlipidemia) CHF (congestive heart failure) Home Medications ?Medication ?Instructions ?Recorded ?Last Taken ?Type rosuvastatin 40 mg tablet 40 mg PO DAILY cholesterol 0 06/24/23 03/29/25 History clopidogrel 75 mg tablet 75 mg PO DAILY anti platelet #90 02/12/24 03/30/25 Rx tabs spironolactone 50 mg tablet 50 mg PO DAILY 1 month #30 tabs 04/26/24 03/30/25 Rx levothyroxine 100 mcg tablet 100 mcg PO QDAY 08/12/24 03/30/25 History furosemide 40 mg tablet 40 mg PO QDAY diuretic 02/2203/30/25 History metoprolol tartrate 25 mg tablet 25 mg PO Q12H blood p ressure 02/22/25 03/30/25 History sacubitril 97 mg-valsartan 103 mg 1 tab PO BID 5 03/30/25 History tablet (Entresto) ondansetron 8 mg disintegrating 8 mg PO Q8H PRN nausea and 03/21/25 03/30/25 Rx tablet vomiting #15 tabs Allergy/AdvReac Type Severity Reaction Status Date / Time amlodipine Allergy Unknown PT UNSURE Verified 04/22/25 07:11 OF REACTION lisinopril AdvReac Intermediate Dry, Verified 04/22/25 07:11 hacking, constant cough atenolol AdvReac Abd Verified 04/22/25 07:11 cramps/diarrhea Family History Mother Heart disease Hypertension CHF (congestive heart failure) Father Heart disease Hypertension CHF (congestive heart failure) CAD (coronary artery disease) Myocardial infarction Surgical History Stented coronary artery (03/03/23) History of carpal tunnel release History of tonsillectomy and adenoidectomy Social History household members: none Smoking Status: Never smoker alcohol intake: never substance use type: does not use ROS ROS ED Constitutional Constitutional ED: Denies chills or fever(s) Eyes Eyes: Denies blurry vision or change in vision ENT ENT ED: Reports rhinorrhea; Denies sore throat Cardiovascular Cardiovascular: Denies chest pain or palpitations Respiratory/Chest Respiratory/Chest: Denies cough or dyspnea Gastrointestinal Gastrointestinal: Reports abdominal pain, diarrhea and nausea; Denies melena or vomiting Genitourinary Genitourinary ED: Denies dysuria or hematuria Musculoskeletal Musculoskeletal: Denies back pain or neck pain Integumentary Denies abscess or rash Neurologic Neurologic: Denies headache(s) or weakness Psychiatric Psychiatric: Reports anxiety Allergic/Immunologic Allergic/Immunologic ED: Denies mouth swelling or urticaria EXAM Physical Exam Const Vital Signs: 04/22/25 07:07 04/22/25 09:11 Temperature 97.6 F L Temperature Source Oral Pulse Rate 89 79 Respiratory Rate 23 H Blood Pressure 161/82 H 158/66 H Blood Pressure Mean 108 96 Pulse Ox 97 96 Oxygen Delivery Method Room Air Positive well nourished and well developed General Appearance ED: well developed and NAD HEENT Reports moist mucous membranes Neck supple and no JVD Resp normal respiratory effort and clear to auscultation bilaterally Cardio regular rate and regular rhythm GI non-distended Palpation: soft and tender epigastric, LUQ and RUQ; Negative for guarding or rebound tenderness present Neuro CN's II-XII intact bilaterally, moves all extremities and no sensory deficits noted Sensorium / Orientation: alert Motor Exam: strength 5/5 throughout Psych Mood & Affect: anxious MDM MDM MDM Narrative Medical decision making narrative: Differential diagnosis includes bowel obstruction, perforation, gastroenteritis, pancreatitis, electrolyte abnormality, dehydration, urinary tract infection, and anxiety. CT scan of the abdomen and pelvis will be obtained to assess for bowel obstruction and perforation. CBC will be obtained to assess for leukocytosis and anemia. Comprehensive metabolic profile will be obtained to assess for hepatic function, renal function, and electrolyte abnormality. Lipase will be obtained to assess for pancreatitis. Urinalysis will be obtained to assess for urinary tract infection and hematuria. History & Record Review Additional record(s) reviewed:: Prior ED visit and Prior labs Lab Data Attestation: I reviewed the patient's lab results. Lab results narrative: CBC was reviewed and was within normal limits. Comprehensive metabolic profile was reviewed. BUN was slightly elevated at 20 and creatinine was slightly elevated at 1.36. These are consistent with previous results. Lipase was reviewed and was elevated at 181. This is more than twice the upper limit of normal. It is not quite 3 times the upper limit of normal. Urinalysis was reviewed. There is no evidence of urinary tract infection or hematuria. Labs: Laboratory Results - last 24 hr 04/22/25 04/22/25 07:48 Unknown WBC 7.6 RBC 4.38 Hgb 13.0 Hct 38.4 MCV 87.7 MCH 29.7 MCHC 33.9 RDW Std Deviation 40.2 RDW Coeff of [place]elle 12.5 Plt Count 237 MPV 10.0 Immature Gran % (Auto) 0.300 Neut % (Auto) 71.6 H Lymph % (Auto) 19.4 [place] % (Auto) 7.7 Eos % (Auto) 0.3 Baso % (Auto) 0.7 Absolute Neuts (auto) 5.4 Absolute Lymphs (auto) 1.47 Nucleated RBC % 0 Sodium 133 Potassium 4.0 Chloride 100 Carbon Dioxide 19.4 L Anion Gap 14 BUN 20 H Creatinine 1.36 H Estim Creat Clear Calc 31.11 L Est GFR (MDRD) Non-Af 37 L BUN/Creatinine Ratio 14.5 Glucose 134 H Calcium 9.4 Total Bilirubin 0.41 AST 13 ALT 7 Alkaline Phosphatase 76 Total Protein 6.7 Albumin 4.0 Globulin 2.7 Albumin/Globulin Ratio 1.5 Lipase 181 H Urine Color Straw Urine Clarity Clear Urine pH 6.5 Ur Specific [place] 1.010 Urine Protein Negative Urine Glucose (UA) Normal Urine Ketones Negative Urine Occult Blood Negative Urine Nitrite Negative Urine Bilirubin Negative Urine Urobilinogen Normal Ur Leukocyte Esterase Negative Urine RBC 0 SEEN Urine WBC 0 SEEN Ur Squamous Epith Cells 0 SEEN Urine Bacteria 0 SEEN Urine Mucus 0 SEEN Radiography Diagnostic Testing: Clinical Impression(s) from Imaging Studies Abdomen/Pelvis CT 04/22/25 07:37 IMPRESSION: No acute abnormality is seen. Stable examination. Reading Location: [id number] CT scan of the abdomen and pelvis was obtained. There is no evidence of bowel obstruction. There is no inflammatory changes around the pancreas. There is no free air or free fluid. This was interpreted by the radiologist. I also independently reviewed the images. I did not see any evidence of bowel obstruction or perforation. Management Discussion w/another healthcare provider: Hospitalist Treatment and Re-Evaluation :: Patient was given a dose of Ativan and Zofran. Patient is feeling somewhat better on reevaluation. Patient was advised of her findings. Case was discussed with the hospitalist. She will admit the patient to her service for observation. Patient understood and was agreeable with the plan. All questions were answered. Discharge Plan Triage Chief Complaint: Nausea/Vomiting/Diarrhea ED Provider: Theodore Vitale Dx/Rx/DC Orders Prescriptions: No Action rosuvastatin 40 mg tablet 40 mg PO DAILY levothyroxine 100 mcg tablet 100 mcg PO QDAY Patient Comments: [NO ORIGINAL SIG] sacubitril-valsartan [Entresto] 97-103 mg tablet 1 tab PO BID Patient Comments: [NO ORIGINAL SIG] metoprolol tartrate 25 mg tablet 25 mg PO Q12H furosemide 40 mg tablet 40 mg PO QDAY spironolactone 50 mg tablet 50 mg PO DAILY 30 Days Qty: 30 2RF Rx Instructions: Hold for serum potassium more than 5.0 ondansetron 8 mg tablet,disintegrating 8 mg PO Q8H PRN (Reason: nausea and vomiting) Qty: 15 0RF clopidogrel 75 mg tablet 75 mg PO DAILY Qty: 90 3RF Primary Care Provider: Neville Serrano Chi Referrals: Neville Serrano Chi, MD [Primary Care Provider, Geriatrics] Print Language: Amharic
--- NOTE | 2025-04-22 07:37 | CT_ITS ---
PROCEDURE: ABDOMEN/PELVIS W IV CONT ONLY 04/22/2025 REASON FOR EXAM: ABDOMINAL PAIN Nausea and vomiting. TECHNIQUE: Procedure Code: [id number] Modality: CT Procedure: ABDOMEN/PELVIS W IV CONT ONLY Coronal and Sagittal reconstruction series were provided. CONTRAST: Isovue-300 VOLUME: 100 mL One or more dose reduction techniques were used (e.g., Automated exposure control, adjustment of the mA and/or kV according to patient size, use of iterative reconstruction technique. RADIATION DOSE SUMMARY: CTDlvol: 15.12 mGy DLP: 1026.26 mGycm COMPARISON: March 30, 2025. FINDINGS: Lung bases: The lung bases are clear. Liver: Normal size. No mass. Gallbladder: Unremarkable Spleen: Normal size. Pancreas: Normal size without evidence of mass surrounding inflammation or ductal dilation. Adrenals: Nodular enlargement of the left adrenal gland. This may represent hyperplasia. Kidneys: Normal renal sizes. No hydronephrosis. Bladder: Unremarkable Reproductive Organs: Unremarkable Bowel: Colonic diverticulosis without diverticulitis. Appendix: Unremarkable Lymph nodes: Unremarkable. Vasculature: Mild diffuse atherosclerotic calcifications are noted. Peritoneum / Retroperitoneum: No free fluid. Bones: Degenerative changes of the spine. Focal sclerotic lesion seen in the prone right femur. This may represent. CT/Abdomen/Pelvis W IV Cont ONLY IMPRESSION: No acute abnormality is seen. Stable examination. Reading Location: [id number]
[2025-04-22 07:58] LABS: Hematocrit 38.4 % (37-47); Hemoglobin 13.0 g/dL (12.0-15.0); Immature Granulocytes Count 0.020 X10^3/uL (0.0-0.0); Mean Corp Hgb Conc 33.9 g/dL (32-36); Mean Corpuscular Volume 87.7 fL (81-99); Mean Platelet Vol. 10.0 fl (6.2-12.0); NRBC Flagged by Analyzer 0 % (0-5); Platelet Count 237 K/mm3 (150-450); RBC Distribution Width CV 12.5 % (11.6-14.6); RBC Distribution Width SD 40.2 fl (35.1-43.9); Red Blood Count 4.38 M/mm3 (4.2-5.4); White Blood Count 7.6 K/mm3 (4.4-11.0)
--- NOTE | 2025-04-22 07:58 | NURSING ---
Called Pt daughter at [phone].
[2025-04-22 08:27] LABS: AST(SGOT) 13 U/L (<=31); Alanine Aminotransfer ALT/SGPT 7 U/L (<=34); Albumin, Serum 4.0 g/dL (3.4-4.8); Alkaline Phosphatase 76 U/L (35-104); Anion Gap 14 (5-15); BUN 20 mg/dL (4-19); BUN/Creat Ratio 14.5 RATIO (10-20); Calcium,Total 9.4 mg/dL (7.6-11.0); Carbon Dioxide 19.4 mmol/L (21.0-32.0); Chloride 100 mmol/L (98-108); Estimated Creatinine Clearance 31.11 ml/min (50-250); Globulin 2.7 g/dL (2.2-4.2); Glucose 134 mg/dL (70-99); Lipase 181 U/L (13-75); Potassium 4.0 mmol/L (3.3-5.1)
[2025-04-22 09:08] LABS: Mucous, Urine 0 SEEN /hpf (<or=2+); Red Blood Cells-Urine 0 SEEN /hpf (0-5); Squamous Epithelial Cells - UA 0 SEEN /hpf (5-10)
[2025-04-22 09:09] LABS: Color, Urine Straw (Yellow); Glucose, Dipstick Normal (Normal); Ketone-Dipstick Negative (Negative); Leukocyte Esterase-Dipstick Negative /ul (Negative); Nitrite-Dipstick Negative (Negative); Occult Blood-Urine Negative /ul (Negative); Protein-Dipstick Negative (Negative); Specific Gravity, Urine 1.010 (1.002-1.030); Urine Bilirubin Dipstick Negative (Negative)
--- NOTE | 2025-04-22 10:03 | PCM.HP.STD ---
HPI - General General Date of Admission: 04/22/25 Date of Service: 04/22/25 HPI Narrative ANDREW MOMIN, is a 89 F with a PMH as outlined who was admitted via the ED On 04/22/2025 with a complaint of intractable nausea and vomiting and upper abdominal pain which had been going on for months. She denied any fever, chills, shortness of breath, palpitations, chest pain or any other symptoms. Patient admitted to severe anxiety and says she felt like her anxiety was acting up that is why she was getting all the symptoms. Review of systems otherwise negative. Vitals in the ED were BP of 158/66, NM of 79, RR of 23 and oxygen sats of 96% on room air. CBC showed Hb of 13, wbc of 7.6 and platelets of 237. Chemistry showed sodium of 133, potassium of 4 and Cr of 1.36. Lipase was minimally elevated at 181. Urinalysis showed no evidence of UTI.CT of the abdomen and pelvis showed no acute abnormality with normal pancreas. She is being admitted to be managed fo intractable abdominal pain and nausea and vomiting. [facility] Medical History CHF (congestive heart failure) (HFpEF) heart failure with preserved ejection fraction Arteriosclerotic coronary artery disease Mitral regurgitation Non-smoker Myocardial infarct Hypertension Obesity Anxiety and depression CKD (chronic kidney disease), stage III Hypothyroidism HLD (hyperlipidemia) CHF (congestive heart failure) Home Medications ?Medication ?Instructions ?Recorded ?Last Taken ?Type rosuvastatin 40 mg tablet 40 mg PO DAILY cholesterol 06/24/23 04/21/25 History clopidogrel 75 mg tablet 75 mg PO DAILY anti platelet #90 02/12/24 03/30/25 Rx tabs spironolactone 50 mg tablet 50 mg PO DAILY 1 month #30 tabs 04/26/24 04/21/25 Rx levothyroxine 100 mcg tablet 100 mcg PO QDAY 08/12/24 03/30/25 History furosemide 40 mg tablet 40 mg PO BID diuretic 02/22/25 04/21/25 History metoprolol tartrate 25 mg tablet 25 mg PO Q12H blood pressure 02/22/25 04/21/25 History sacubitril 97 mg-valsartan 103 mg 1 tab PO BID 02/22/25 04/21/25 History tablet (Entresto) ondansetron 8 mg disintegrating 8 mg PO Q8H PRN nausea and 03/21/25 04/21/25 Rx tablet vomiting #15 tabs buspirone 10 mg tablet 5 mg PO TID 04/22/25 Unknown History buspirone 5 mg tablet 5 mg PO TID 04/22/25 Unknown History citalopram 20 mg tablet 20 mg PO DAILY 04/22/25 Unknown History paroxetine HCl 10 mg tablet 10 mg PO DAILY 04/22/25 04/21/25 History Allergy/AdvReac Type Severity Reaction Status Date / Time amlodipine Allergy Unknown PT UNSURE Verified 04/22/25 07:11 OF REACTION lisinopril AdvReac Intermediate Dry, Verified 04/22/25 07:11 hacking, constant cough atenolol AdvReac Abd Verified 04/22/25 07:11 cramps/diarrhea Family History Mother Heart disease Hypertension CHF (congestive heart failure) Father Heart disease Hypertension CHF (congestive heart failure) CAD (coronary artery disease) Myocardial infarction Surgical History Stented coronary artery (03/03/23) History of carpal tunnel release History of tonsillectomy and adenoidectomy Social History household members: none Smoking Status: Never smoker alcohol intake: never substance use type: does not use ROS Constitutional Constitutional: Denies anorexia, chills, fatigue, fever(s), malaise or weakness Eyes Eyes: Denies change in vision ENT HEENT: Denies dysphagia or headache(s) Cardiovascular Cardiovascular: Denies chest pain, dyspnea on exertion, edema, lightheadedness, orthopnea, palpitations, paroxysmal nocturnal dyspnea, rapid heart rate or syncope Respiratory/Chest Respiratory/Chest: Denies cough, dyspnea, shortness of breath at rest or shortness of breath with exertion Gastrointestinal Gastrointestinal: Reports abdominal pain and diarrhea; Denies coffee ground emesis, constipation, nausea or vomiting Neurologic Neurologic: Denies confusion, dizziness, focal weakness, headache(s), numbness or seizures Psychiatric Psychiatric: Denies anxiety or depression Patient's Goals Of Care . What matters most to you about your health?: getting better What would you like to achieve or improve as a result of your hospital stay?: to get better and go home Vital Signs Vital Signs Vital Signs: 04/22/25 07:07 04/22/25 09:11 Temperature 97.6 F L Temperature Source Oral Pulse Rate 89 79 Respiratory Rate 23 H Blood Pressure 161/82 H 158/66 H Blood Pressure Mean 108 96 Pulse Ox 97 96 Oxygen Delivery Method Room Air Weight Weight: 214 lb 1.102 oz Body Mass Index (BMI) 37.9 Physical Exam Const alert, oriented x3 and no apparent distress Constitutional Narrative: very anxious General Appearance: cooperative HEENT normocephalic, head/scalp atraumatic, moist oral mucous membranes and oropharynx normal Mouth: oral and palatal mucosa normal Eyes EOMs intact bilaterally and conjunctivae normal Neck supple and no JVD Resp normal respiratory effort, no retractions and no use of accessory muscles Cardio regular rate, regular rhythm, S1 normal heart sound, S2 normal heart sound and no murmurs GI normal to inspection, nondistended, normoactive bowel sounds, soft to palpation and non-tender Extremity normal to inspection, full ROM and no clubbing, cyanosis or edema Neuro oriented x3, moves all extremities and no focal motor deficits Sensorium / Orientation: awake and alert Motor Exam: strength 5/5 throughout Psych affect normal Results Lab / Micro Data 04/22/25 07:48 04/22/25 07:48 Labs: Laboratory Results - last 24 hr 04/22/25 07:48: WBC 7.6, RBC 4.38, Hgb 13.0, Hct 38.4, MCV 87.7, MCH 29.7, MCHC 33.9, RDW Std Deviation 40.2, RDW Coeff of Danelle 12.5, Plt Count 237, MPV 10.0, Immature Gran % (Auto) 0.300, Neut % (Auto) 71.6 H, Lymph % (Auto) 19.4, [place] % (Auto) 7.7, Eos % (Auto) 0.3, Baso % (Auto) 0.7, Absolute Neuts (auto) 5.4, Absolute Lymphs (auto) 1.47, Nucleated RBC % 0, Sodium 133, Potassium 4.0, Chloride 100, Carbon Dioxide 19.4 L, Anion Gap 14, BUN 20 H, Creatinine 1.36 H, Estim Creat Clear Calc 31.11 L, Est GFR (MDRD) Non-Af 37 L, BUN/Creatinine Ratio 14.5, Glucose 134 H, Calcium 9.4, Total Bilirubin 0.41, AST 13, ALT 7, Alkaline Phosphatase 76, Total Protein 6.7, Albumin 4.0, Globulin 2.7, Albumin/Globulin Ratio 1.5, Lipase 181 H 04/22/25 : Urine Color Straw, Urine Clarity Clear, Urine pH 6.5, Ur Specific [place] 1.010, Urine Protein Negative, Urine Glucose (UA) Normal, Urine Ketones Negative, Urine Occult Blood Negative, Urine Nitrite Negative, Urine Bilirubin Negative, Urine Urobilinogen Normal, Ur Leukocyte Esterase Negative, Urine RBC 0 SEEN, Urine WBC 0 SEEN, Ur Squamous Epith Cells 0 SEEN, Urine Bacteria 0 SEEN, Urine Mucus 0 SEEN Imaging Radiology Impression Abdomen/Pelvis CT 04/22/25 07:37 IMPRESSION: No acute abnormality is seen. Stable examination. Reading Location: [id number] Assessment & Plan Assessment/Plan (1) Abdominal pain: PLAN: Plan #Abdominal pain with nausea and vomiting Patient has very vague symptoms which look like somatization. She complains of abdominal pain and then nausea and vomiting which have all going on for several months. She admits to having severe anxiety and says she feels like her anxiety is acting up. Abdomen is soft and nontender during examination. CT of the abdomen and pelvis showed a normal pancreas and no acute abdominal pathology. Lipase level was only mildly elevated at 181 so this does not really meet the criteria for acute pancreatitis. Admit to MedSurg. Hydrate gently with IV fluids. Keep on full liquid diet for now and advance as tolerated. P.o. Tylenol, p.o. oxycodone and IV morphine as needed for pain. PT OT consult. For precautions. #History of CAD s/p stents: On Plavix and metoprolol. NOt on statin, unclear why #Hypertension: On metoprolol #History of CHF: On Entresto and Lasix as well as metoprolol #CKD stage III: CR is 1.36 which is her baseline. Will monitor #Hypothyroidism: On Synthroid #Hyperlipidemia:not on statin. Unclear why #History of severe anxiety: Escitalopram and buspirone. DVT prophylaxis: Lovenox CODE STATUS: Full code Patient counseled extensively about different types of CODE STATUS including full code, DNR CCA and DNR CCA. Patient elects to be full code and wants CPR and intubation if needed. Total [id number] time 17 minutes. Charges/Coding Visit Charges Inpatient E&M: 65942 Init Hosp L3 Procedures Hospitalists Procedures: 44258 Advncd Care Plan 30 Min
[2025-04-22] MEDS: 0.9% Normal Saline (1000mL) 1,000 ML 125 ML IV ×2 (11:43→20:47)
[2025-04-22] MEDS: 0.9% Saline Lock 10 ML Syringe IV ×3 (11:43→20:47)
[2025-04-22] MEDS: Pantoprazole Sodium 40 MG in 0.9% Normal Saline (100mL MB+) 100 ML 300 MG IV ×2 (12:14→20:59)
--- NOTE | 2025-04-22 14:27 | NURSING ---
Pt daughter Sarah called and was given an update on her mother and she said that she has some questions and concerns that she would like to talk with a social insurance analyst. I told her that I would pass the info along and have one of them call her.
[2025-04-22] MEDS: SACUBITRIL/VALSARTAN 97-103 MG TABLET 1 EACH PO (20:47)
[2025-04-23 04:37] VITALS: BP 137/58; PULSE 71; RESP 20; TEMP 36.8; O2SAT 97
[2025-04-23] MEDS: 0.9% Saline Lock 10 ML Syringe IV ×2 (04:44→08:54)
[2025-04-23 05:24] LABS: Hematocrit 37.7 % (37-47); Hemoglobin 12.5 g/dL (12.0-15.0); Immature Granulocytes Count 0.020 X10^3/uL (0.0-0.0); Mean Corp Hgb Conc 33.2 g/dL (32-36); Mean Corpuscular Volume 90.0 fL (81-99); Mean Platelet Vol. 10.3 fl (6.2-12.0); NRBC Flagged by Analyzer 0 % (0-5); Platelet Count 244 K/mm3 (150-450); RBC Distribution Width CV 12.8 % (11.6-14.6); RBC Distribution Width SD 42.2 fl (35.1-43.9); Red Blood Count 4.19 M/mm3 (4.2-5.4); White Blood Count 7.1 K/mm3 (4.4-11.0)
[2025-04-23 05:45] LABS: Anion Gap 12 (5-15); BUN 13 mg/dL (4-19); BUN/Creat Ratio 10.3 RATIO (10-20); Calcium,Total 8.6 mg/dL (7.6-11.0); Carbon Dioxide 18.9 mmol/L (21.0-32.0); Chloride 106 mmol/L (98-108); Estimated Creatinine Clearance 31.96 ml/min (50-250); Glucose 111 mg/dL (70-99); Potassium 4.2 mmol/L (3.3-5.1)
[2025-04-23 08:40] VITALS: BP 127/51; PULSE 70; RESP 18; TEMP 36.6; O2SAT 99
[2025-04-23] MEDS: Pantoprazole Sodium 40 MG in 0.9% Normal Saline (100mL MB+) 100 ML 300 MG IV ×2 (08:54→19:56)
[2025-04-23 08:59] VITALS: BP 127/51; PULSE 70
[2025-04-23] MEDS: SACUBITRIL/VALSARTAN 97-103 MG TABLET 1 EACH PO ×2 (08:59→19:57)
--- NOTE | 2025-04-23 10:06 | CASEMGMT ---
OSMEL CM in to discuss ALMEIDA form with patient. RN CM explained ALMEIDA form, patient voiced understanding. Pt signed form and filed in chart. Pt provided with a copy of signed ALMEIDA form. Patient had no further questions or concerns at this time.
--- NOTE | 2025-04-23 10:06 | CASEMGMT ---
RN CM into pt room, pt sitting up in bed in no distress. Pt states she lives alone in a 2 story home with FFSU and 1 step to enter. Pt does not have AD and does not tyically use AD. Pt reports being indep in ADL/IADLs and denies concerns at home. Pt states her dtr will transport her home when it is time.
--- NOTE | 2025-04-23 10:36 | PN_ITS ---
Subjective Subjective Patient seen and examined with her nurse by her bedside. SHe still complained 0f vague symptoms including generalised pain and abdominal pain. Review of systems is otherwise negative. She has remained hemodynamically stable. Objective Data Objective Data Vital Signs: Vital Signs Temp Pulse Resp BP Pulse Ox O2 Del Method 97.8 F 70 18 127/51 H 99 Room Air 04/23/25 08:40 04/23/25 08:59 04/23/25 08:40 04/23/25 08:59 04/23/25 08:40 04/23/25 08:44 Oxygen Delivery Method Room Air Weight: 207 lb 1 oz Body Mass Index (BMI) 36.6 Intake & Output: Intake and Output for Last 24 Hours 04/21/25 04/22/25 04/23/25 23:59 23:59 23:59 Intake Total 1200 / 1200 1100 / 1100 Balance 1200 / 1200 1100 / 1100 Lab / Micro Data 04/23/25 05:04 04/23/25 05:04 Labs: Laboratory Results - last 24 hr 04/23/25 05:04: WBC 7.1, RBC 4.19 L, Hgb 12.5, Hct 37.7, MCV 90.0, MCH 29.8, MCHC 33.2, RDW Std Deviation 42.2, RDW Coeff of Danelle 12.8, Plt Count 244, MPV 10.3, Immature Gran % (Auto) 0.300, Neut % (Auto) 53.6, Lymph % (Auto) 34.7, [place] % (Auto) 8.3, Eos % (Auto) 2.4, Baso % (Auto) 0.7, Absolute Neuts (auto) 3.8, Absolute Lymphs (auto) 2.46, Nucleated RBC % 0, Sodium 136, Potassium 4.2, Chloride 106, Carbon Dioxide 18.9 L, Anion Gap 12, BUN 13, Creatinine 1.30 H, E stim Creat Clear Calc 31.96 L, Est GFR (MDRD) Non-Af 39 L, BUN/Creatinine Ratio 10.3, Glucose 111 H, Calcium 8.6 Physical Exam Const alert, oriented x3 and no apparent distress General Appearance: cooperative HEENT normocephalic, head/scalp atraumatic, moist oral mucous membranes and oropharynx normal Eyes PERRL, EOMs intact bilaterally and conjunctivae normal Neck supple and no JVD Resp normal respiratory effort, no retractions and no use of accessory muscles Cardio regular rate, regular rhythm, S1 normal heart sound, S2 normal heart sound and no murmurs GI normal to inspection, nondistended, normoactive bowel sounds, soft to palpation and non-tender Extremity normal to inspection, full ROM, normal capillary refill and no clubbing, cyanosis or edema General Extremity: no tenderness to palpation of joints or extremities Skin General Skin Exam: no breakdown Neuro oriented x3, moves all extremities and no focal motor deficits Sensorium / Orientation: awake and alert Motor Exam: strength 5/5 throughout Psych thought process normal, cooperative and affect normal Appearance: appropriate Assessment & Plan Assessment/Plan (1) Abdominal pain: PLAN: Plan #Abdominal pain with nausea and vomiting * these have largely resolved * Imaging of the abdomen done showed no acute pathology * patient admitted she felt her anxiety was acting up. * PT/OT consult. fall precautions. * P.o. Tylenol, p.o. oxycodone and IV morphine as needed for pain. * Fall precautions. * #History of CAD s/p stents: On Plavix and metoprolol. NOt on statin, unclear why #Hypertension: On metoprolol #History of CHF: On Entresto and Lasix as well as metoprolol #CKD stage III: CR is 1.36 which is her baseline. Will monitor #Hypothyroidism: On Synthroid #Hyperlipidemia:not on statin. Unclear why #History of severe anxiety: Escitalopram and buspirone. DVT prophylaxis: Lovenox CODE STATUS: Full code * DIsposition: patient says she wants one more day in the hospital. Plan on dc tomorrow Charges/Coding Visit Charges Inpatient E&M: 34155 Subs Hosp L2
--- NOTE | 2025-04-23 13:17 | CASEMGMT ---
Social Work Pt dgt requesting to speak with SW. NORM placed phone call to pt dgt Sarah. Dgt explaining that pt lives alone and is independent with care and still drives, but feels anxiety and depression are limiting factors and pt is having some functional decline due to this. Pt is currently working with PCP and medication is being changed. Pt dgt hopeful this will help pt. Dgt asking about additional resources in the home. SW explained [facility] program and dgt is interested in getting additional information about this. Dgt also inquiring about outpt therapy for pt. NORM explained that SW assist in setting this up if pt is agreeable. SW met with pt and introduced self and role of SW. SW spoke with pt regarding outpt PT and pt is not interested at this time. Pt states she does not want to drive to [place]. SW offered other clinics or [facility] Van for transportation and pt states she is just not interested in outpt PT at this time. SW spoke with pt regarding mental health. Pt confirms that anxiety is high and she feels it is contributing to other physical symptoms. NORM spoke with pt regarding meeting with a counselor to discuss anxiety and that changing medication along with meeting with counselor may provide needed help to pt. Pt agrees that this may be helpful and is accepting of list of counselors but does not want SW to set up any appointments. Sw explained [facility] program and pt is accepting of written information on this. NORM discussed Advance Directives with pt. Pt does not have HCPOA and Living will and is not interested in completing at this time but will consider. SW provided pt with a [facility] and you have a choice booklet. Pt denies any other concerns at this time. SAMEER Fleming
[2025-04-23 16:47] VITALS: BP 120/50; PULSE 60; RESP 18; TEMP 36.6; O2SAT 95
[2025-04-23 19:57] VITALS: BP 145/60; PULSE 63
[2025-04-23 21:31] VITALS: BP 145/60; PULSE 63; RESP 18; TEMP 36.7; O2SAT 98
[2025-04-24 03:00] VITALS: BP 134/59; PULSE 71; RESP 18; TEMP 36.7; O2SAT 97
[2025-04-24 08:06] LABS: Hematocrit 38.2 % (37-47); Hemoglobin 12.7 g/dL (12.0-15.0); Immature Granulocytes Count 0.020 X10^3/uL (0.0-0.0); Mean Corp Hgb Conc 33.2 g/dL (32-36); Mean Corpuscular Volume 89.0 fL (81-99); Mean Platelet Vol. 10.1 fl (6.2-12.0); NRBC Flagged by Analyzer 0 % (0-5); Platelet Count 220 K/mm3 (150-450); RBC Distribution Width CV 12.7 % (11.6-14.6); RBC Distribution Width SD 41.8 fl (35.1-43.9); Red Blood Count 4.29 M/mm3 (4.2-5.4); White Blood Count 6.9 K/mm3 (4.4-11.0)
[2025-04-24 08:51] LABS: Anion Gap 13 (5-15); BUN 13 mg/dL (4-19); BUN/Creat Ratio 9.0 RATIO (10-20); Calcium,Total 8.6 mg/dL (7.6-11.0); Carbon Dioxide 22.6 mmol/L (21.0-32.0); Chloride 99 mmol/L (98-108); Estimated Creatinine Clearance 28.65 ml/min (50-250); Glucose 120 mg/dL (70-99); Potassium 3.6 mmol/L (3.3-5.1)
[2025-04-24 09:00] VITALS: BP 148/65; PULSE 71; RESP 18; TEMP 37.1; O2SAT 98
[2025-04-24] MEDS: Pantoprazole Sodium 40 MG in 0.9% Normal Saline (100mL MB+) 100 ML 330 MG IV (10:10)
[2025-04-24 10:22] VITALS: BP 148/65; PULSE 71
[2025-04-24] MEDS: SACUBITRIL/VALSARTAN 97-103 MG TABLET 1 EACH PO ×2 (10:23→20:46)
--- NOTE | 2025-04-24 11:50 | PN_ITS ---
Subjective Subjective Patient seen and examined. And as well as by her bedside. She had no active complaints. Her diet is being advanced to regular diet. She is for likely discharge this afternoon when she tolerates the regular diet. Review of systems otherwise negative. Objective Data Objective Data Vital Signs: Vital Signs Temp Pulse Resp BP Pulse Ox O2 Del Method 98.1 F 71 18 148/65 H 97 Room Air 04/24/25 03:00 04/24/25 10:22 04/24/25 03:00 04/24/25 10:22 04/24/25 03:00 04/24/25 03:43 Oxygen Delivery Method Room Air Weight: 207 lb 1 oz Body Mass Index (BMI) 36.6 Intake & Output: Intake and Output for Last 24 Hours 04/22/25 04/23/25 04/24/25 23:59 23:59 23:59 Intake Total 1200 / 1200 2350 / 2350 250 / 250 Balance 1200 / 1200 2350 / 2350 250 / 250 Lab / Micro Data 04/24/25 07:54 04/24/25 07:54 Labs: Laboratory Results - last 24 hr 04/24/25 07:54: WBC 6.9, RBC 4.29, Hgb 12.7, Hct 38.2, MCV 89.0, MCH 29.6, MCHC 33.2, RDW Std Deviation 41.8, RDW Coeff of Danelle 12.7, Plt Count 220, MPV 10.1, Immature Gran % (Auto) 0.300, Neut % (Auto) 62.3, Lymph % (Auto) 25.9, [place] % (Auto) 8.9, Eos % (Auto) 2.0, Baso % (Auto) 0.6, Absolute Neuts (auto) 4.3, Absolute Lymphs (auto) 1.78, Nucleated RBC % 0, Sodium 134, Potassium 3.6, Chloride 99, Carbon Dioxide 22.6, Anion Gap 13, BUN 13, Creatinine 1.45 H, Estim Creat Clear Calc 28.65 L, Est GFR (MDRD) Non-Af 34 L, BUN/Creatinine Ratio 9.0 L , Glucose 120 H, Calcium 8.6 Physical Exam Const alert and oriented x3 Constitutional Narrative: has baseline anxiety General Appearance: cooperative HEENT normocephalic, head/scalp atraumatic, moist oral mucous membranes and oropharynx normal Eyes PERRL, EOMs intact bilaterally and conjunctivae normal Neck supple and no JVD Resp normal respiratory effort, no retractions and no use of accessory muscles Cardio regular rate, regular rhythm, S1 normal heart sound, S2 normal heart sound and no murmurs GI normal to inspection, nondistended, normoactive bowel sounds, soft to palpation and non-tender Extremity normal to inspection, full ROM, normal capillary refill and no clubbing, cyanosis or edema General Extremity: no tenderness to palpation of joints or extremities Skin General Skin Exam: no breakdown Neuro oriented x3, moves all extremities and no focal motor deficits Sensorium / Orientation: awake and alert Motor Exam: strength 5/5 throughout Psych thought process normal, cooperative and affect normal Appearance: appropriate Assessment & Plan Assessment/Plan (1) Abdominal pain: PLAN: Plan #Abdominal pain with nausea and vomiting * these have largely resolved * Imaging of the abdomen done showed no acute pathology * patient admitted she felt her anxiety was acting up. * PT/OT consult. fall precautions. * P.o. Tylenol, p.o. oxycodone and IV morphine as needed for pain. * Fall precautions. * #History of CAD s/p stents: On Plavix and metoprolol. NOt on statin, unclear why #Hypertension: On metoprolol #History of CHF: On Entresto and Lasix as well as metoprolol #CKD stage III: CR is 1.45 which is around her baseline. Will monitor #Hypothyroidism: On Synthroid #Hyperlipidemia:not on statin. Unclear why #History of severe anxiety: Escitalopram and buspirone. DVT prophylaxis: Lovenox CODE STATUS: Full code * DIsposition: for likely DC home today once she tolerates a regular diet Charges/Coding Visit Charges Inpatient E&M: 20688 Subs Hosp L2
[2025-04-24 15:58] VITALS: BP 124/62; PULSE 62; RESP 18; TEMP 36.6; O2SAT 97
[2025-04-24 20:41] VITALS: BP 121/55; PULSE 64; RESP 17; TEMP 36.4; O2SAT 97
[2025-04-24 20:45] VITALS: BP 122/55; PULSE 64
[2025-04-24] MEDS: Pantoprazole Sodium 40 MG in 0.9% Normal Saline (100mL MB+) 100 ML 300 MG IV (20:45)
[2025-04-25 05:11] VITALS: BP 149/60; PULSE 67; RESP 18; TEMP 36.6; O2SAT 97
[2025-04-25] MEDS: 0.9% Saline Lock 10 ML Syringe IV (06:35)
[2025-04-25 07:45] VITALS: BP 151/58; PULSE 70; RESP 16; TEMP 36.6; O2SAT 98
[2025-04-25] MEDS: SACUBITRIL/VALSARTAN 97-103 MG TABLET 1 EACH PO ×2 (08:54→21:10)
[2025-04-25 08:55] VITALS: PULSE 70
--- NOTE | 2025-04-25 11:31 | PN.HOSP_ITS ---
Subjective Subjective Patient was seen and examined today, she states she is burning up on the inside and would like to see a associate artistic director. Patient is also concerned about a bruise on her left inner upper arm, this bruise looks old and I assured her that it would not cause her any problems. Patient states she wants to get better and go home. Objective Data Objective Data Vital Signs: Vital Signs Temp Pulse Resp BP Pulse Ox O2 Del Method 97.8 F 70 16 151/58 H 98 Room Air 04/25/25 07:45 04/25/25 08:55 04/25/25 07:45 04/25/25 07:45 04/25/25 07:45 04/25/25 09:09 Oxygen Delivery Method Room Air Weight: 93.922 kg Body Mass Index (BMI) 36.6 Intake & Output: Intake and Output for Last 24 Hours 04/23/25 04/24/25 04/25/25 23:59 23:59 23:59 Intake Total 2350 / 2350 1250 / 1250 240 / 240 Balance 2350 / 2350 1250 / 1250 240 / 240 Lab / Micro Data 04/24/25 07:54 04/24/25 07:54 Patient's Goals Of Care - F/U Goals Reviewed Goals of care reviewed with patient: Yes - Goals changed What matters most to you about your health?: Wants to see a associate artistic director concerning her GI problems What would you like to achieve or improve as a result of your hospital stay?: Patient wants to get medically better and go home Physical Exam Const alert, oriented x3 and no apparent distress General Appearance: cooperative, well kempt and well developed Orientation / Consciousness: awake, oriented to person, oriented to place and oriented to time HEENT normocephalic, head/scalp atraumatic and moist oral mucous membranes Eyes PERRL, EOMs intact bilaterally and conjunctivae normal Neck supple, no JVD, thyroid normal and no carotid bruits General: trachea midline Resp normal respiratory effort and clear to auscultation bilaterally Auscultation: Negative for rales, rhonchi or wheezes Cardio regular rate, regular rhythm, no murmurs, no rub and no gallops GI normal to inspection, nondistended, normoactive bowel sounds, soft to palpation, non-tender and non-distended Extremity Extremity Narrative: Patient has an ecchymotic area approximately 4 cm x 5 cm in an oval shape on the back of her left upper arm, this area appears to be old Skin General Skin Exam: no breakdown Rashes: no rashes Neuro oriented x3, CN's II-XII intact bilaterally, moves all extremities, no focal motor deficits and no sensory deficits noted Sensorium / Orientation: awake and alert Speech: speech normal Psych affect normal Assessment & Plan Assessment/Plan (1) Abdominal pain: PLAN: Plan 1. Abdominal pain with nausea and vomiting-etiology unclear at this point, patient has had no further vomiting, she wants to see a associate artistic director I think it is appropriate. I have consulted gastroenterology #2 coronary artery disease-it appears stable at this time, patient is on Plavix and metoprolol #3 essential hypertension-patient is on metoprolol #4 hypothyroidism-patient is on Synthroid #5 chronic anxiety and depression-patient is on Lexapro and BuSpar Total clinical time spent by myself addressing the patient's medical issues, reviewing all of her data, and collaborating with patient's care team: 35 minutes Charges/Coding Visit Charges Inpatient E&M: 02410 Subs Hosp L2
[2025-04-25 14:56] VITALS: BP 145/50; PULSE 70; RESP 17; TEMP 36.6; O2SAT 98
--- NOTE | 2025-04-25 15:02 | CASEMGMT ---
RN CM into pt room to discuss any barriers for dc. Spoke with therapy who re eval'd pt and no therapy needed. Pt sitting up in bed. Pt states it is late in the day and her dtr has a libertarian tonight so she feels she can dc tomorrow. Pt denies any needs for any DME or services at home. Pt states she would like info for AD, updated SW.
--- NOTE | 2025-04-25 15:29 | CASEMGMT ---
Social Work- SW met with pt to provide a second copy of advanced planning resources; SW located original copy, pt still asked for second copy. Pt indicated that she has POA completed already. Pt indicated Sarah is POA. Pt reports that she wants to d/c tomorrow. Pt reports that she hasn't had a colonoscopy for a few years and wanted to talk to Dr Pandey about of she needed to have one or not. Pt also reports having a question about her pancreas for Dr Pandey. Pt reports that is why she asked for a consult. Pt denies any other needs at this time. SW provided anxiety coping skills information. SW remains available to follow. SAMEER Dubose
--- NOTE | 2025-04-25 18:35 | CON.PCM.GI_ITS ---
HPI Consult Data Date of Consult: 04/25/25 HPI Narrative Reason for Consultation: Abdominal pain with nausea and bloating HPI Narrative: ANDREW MOMIN, is a 89-year-old female with past medical history of anxiety presented to the ED on 04/22/2025 with complaints of intractable nausea and vomiting (N/V) and upper abdominal pain ongoing for months. She denies fever, chills, shortness of breath, palpitations, chest pain, or other symptoms. She attributes her symptoms partly to her anxiety acting up. The patient reports feeling bloated, with pain localized mainly to the upper abdomen. She denies hematemesis, coffee-ground emesis, melena, hematochezia, dysuria, frequency, or hematuria. She admits to some dry heaves.? She has a history of anxiety treated with Paxil (paroxetine) but is currently being weaned off it and transitioned to citalopram due to insurance preferences. * Labs : * CBC: Hb 13, WBC 7.6, Platelets 237. * Chemistry: Na 133, K 4, Cr 1.36. * Lipase: 181 (minimally elevated). * Urinalysis: No evidence of UTI. * Imaging (ED):?CT abdomen and pelvis showed no acute abnormality, with a normal pancreas. ] [facility] Medical History CHF (congestive heart failure) (HFpEF) heart failure with preserved ejection fraction Arteriosclerotic coronary artery disease Mitral regurgitation Non-smoker Myocardial infarct Hypertension Obesity Anxiety and depression CKD (chronic kidney disease), stage III Hypothyroidism HLD (hyperlipidemia) CHF (congestive heart failure) Home Medications ?Medication ?Instructions ?Recorded ?Last Taken ?Type rosuvastatin 40 mg tablet 40 mg PO DAILY cholesterol 0 06/24/23 04/21/25 History clopidogrel 75 mg tablet 75 mg PO DAILY anti platelet #90 02/12/24 03/30/25 Rx tabs spironolactone 50 mg tablet 50 mg PO DAILY 1 month #30 tabs 04/26/24 04/21/25 Rx levothyroxine 100 mcg tablet 100 mcg PO QDAY 08/12/24 03/30/25 History furosemide 40 mg tablet 40 mg PO BID diuretic 04/21/25 History metoprolol tartrate 25 mg tablet 25 mg PO Q12H blood p ressure 02/22/25 04/21/25 History sacubitril 97 mg-valsartan 103 mg 1 tab PO BID 5 04/21/25 History tablet (Entresto) ondansetron 8 mg disintegrating 8 mg PO Q8H PRN nausea and 03/21/25 04/21/25 Rx tablet vomiting #15 tabs buspirone 10 mg tablet 5 mg PO TID 04/22/25 Unknown History buspirone 5 mg tablet 5 mg PO TID 04/22/25 Unknown History citalopram 20 mg tablet 20 mg PO DAILY 04/22/25 Unkn own History paroxetine HCl 10 mg tablet 10 mg PO DAILY 04/22/25 History Allergy/AdvReac Type Severity Reaction Status Date / Time amlodipine Allergy Unknown PT UNSURE Verified 04/22/25 07:11 OF REACTION lisinopril AdvReac Intermediate Dry, Verified 04/22/25 07:11 hacking, constant cough atenolol AdvReac Abd Verified 04/22/25 07:11 cramps/diarrhea Family History Mother Heart disease Hypertension CHF (congestive heart failure) Father Heart disease Hypertension CHF (congestive heart failure) CAD (coronary artery disease) Myocardial infarction Surgical History Stented coronary artery (03/03/23) History of carpal tunnel release History of tonsillectomy and adenoidectomy Social History household members: none Smoking Status: Never smoker alcohol intake: never substance use type: does not use ROS Constitutional Constitutional: Denies fatigue, fever(s), poor appetite, weight gain or weight loss Gastrointestinal Gastrointestinal: Denies belching, bloating, change in bowel habits, change in stool character, chewing difficulty, coffee ground emesis, constipation, cramping, diarrhea, dyspepsia, dysphagia, early satiety, excessive flatus, fecal incontinence, heartburn, hematemesis, hematochezia, hemorrhoids, loose stools, melena, nausea, odynophagia, rectal bleeding, tenesmus, vomiting or weight changes Physical Exam Const alert, oriented x3, no apparent distress and healthy appearing General Appearance: cooperative GI normal to inspection, nondistended, normoactive bowel sounds, soft to palpation, non-tender and non-distended Percussion: normal to percussion Rectal Exam: deferred Lab / Micro Data 04/24/25 07:54 04/24/25 07:54 Assessment & Plan Assessment/Plan (1) Abdominal pain: PLAN: Assessment * Intractable nausea and vomiting and upper abdominal pain, etiology unclear. Multiple possible causes, including primary GI pathology, anxiety-related somatic symptoms, or adverse effects of medication changes. * Anxiety disorder, currently managed with a transition from Paxil to citalopram. * Minimally elevated lipase (likely not acute pancreatitis given normal CT and chronic symptoms).? Plan * ?Proceed with the requested upper endoscopy to evaluate the upper GI tract as the potential etiology for chronic intractable symptoms. * Symptom Management: * Continue current IV fluid hydration as needed to manage dehydration from N/V. * Optimize antiemetic regimen (e.g., scheduled antiemetics) and pain management. * Medication Review:?Monitor patient's progress with the citalopram initiation and Paxil taper. Coordinate with the primary team and potentially psychiatry to ensure a smooth transition and address potential withdrawal symptoms or side effects, which may mimic or exacerbate GI distress. Portions of this note were generated using voice recognition software ([email or web address]). I have reviewed the contents and every effort has been made to ensure accuracy; however, inadvertent errors in grammar, spelling, punctuation, or word choice may occur, that were not noted before signing the document and should not alter the intended clinical meaning. Charges/Coding Visit Charges Inpatient E&M: 73435 Init Hosp L3
[2025-04-25 20:58] VITALS: BP 130/60; PULSE 63; RESP 16; TEMP 36.6; O2SAT 95
[2025-04-25 21:10] VITALS: BP 130/60; PULSE 63
[2025-04-26] VITALS (10 sets, daily range): BP systolic 107–148; BP diastolic 47–96; PULSE 64–70; RESP 12–18; TEMP 36.3–37.1; O2SAT 94–97; BMI 36.6
[2025-04-26 05:22] LABS: Hematocrit 36.6 % (37-47); Hemoglobin 12.1 g/dL (12.0-15.0); Immature Granulocytes Count 0.030 X10^3/uL (0.0-0.0); Mean Corp Hgb Conc 33.1 g/dL (32-36); Mean Corpuscular Volume 89.1 fL (81-99); Mean Platelet Vol. 10.4 fl (6.2-12.0); NRBC Flagged by Analyzer 0 % (0-5); Platelet Count 227 K/mm3 (150-450); RBC Distribution Width CV 12.6 % (11.6-14.6); RBC Distribution Width SD 41.3 fl (35.1-43.9); Red Blood Count 4.11 M/mm3 (4.2-5.4); White Blood Count 6.9 K/mm3 (4.4-11.0)
[2025-04-26 06:33] LABS: Anion Gap 12 (7-18); BUN 19 mg/dL (4-19); BUN/Creat Ratio 11.0 RATIO (10-20); Calcium,Total 8.6 mg/dL (7.6-11.0); Carbon Dioxide 24.3 mmol/L (20.0-29.0); Chloride 101 mmol/L (96-106); Estimated Creatinine Clearance 23.61 ml/min (50-250); Glucose 118 mg/dL (70-99); Potassium 3.4 mmol/L (3.5-5.1)
--- NOTE | 2025-04-26 08:01 | NURSING ---
pt initially reports that medicine for anxiety is new today and it made me feel hot inside, like a hot flash and some mouth dryness. after talking further pt states that she takes this medicine at home and was recently switched to it and experienced the same effect at home. denies any sob/chest tightness/throat discomfort.
[2025-04-26] MEDS: SACUBITRIL/VALSARTAN 97-103 MG TABLET 1 EACH PO (08:20)
[2025-04-26] MEDS: Lactated Ringers 1,000 ML 15 ML IV (14:15)
--- NOTE | 2025-04-26 15:13 | PCM.PRE.AN2 ---
ASA Classification* ASA Classification ASA Classification: 3 Assessment & Plan Anesthesia* Anesthesia Assessment Anesthesia Assessment: Discussed sedation and/or anesthesia options, risks, benefits, and alternatives with patient/parents/legal guardian/POA. Questions invited. The patient/parents/legal guardian/POA seems to understand and agrees to proceed with anesthesia plan. Reviewed the physical assessment, medical history, allergy history and patient home medications list prior to surgery/procedure/anesthetic and documented any changes. Performed airway and anesthesia risk assessments. Anesthesia Type Anesthesia Type: MAC History Source History Obtained from:: Patient and Chart Anesthesia Focused Assessment* Temperature: 97.8 F Pulse Rate: 65 Blood Pressure: 136/59 Respiratory Rate: 16 Pulse Ox: 97 Oxygen Delivery Method: Room Air Airway Assessment Mouth opens: >3 cm Mallampati Score: III Teeth Condition: Caps/Crowns (Patient has several caps and crowns. They are all tight.) and Missing (Patient has a couple missing teeth. Rest of the teeth are tight.) Neck Range of motion (ROM): Limited ROM (Somewhat Decreased) Labs Anesthesia Preop lab: CBC WBC, (4.4-11.0) 6.9 K/mm3 Today, 04:56 RBC, (4.2-5.4) 4.11 M/mm3 L Today, 04:56 Hgb, (12.0-15.0) 12.1 g/dL Today, 04:56 Hct, (37-47) 36.6 % L Today, 04:56 Plt Count, (150-450) 227 K/mm3 Today, 04:56 CHEMISTRY Potassium, (3.5-5.1) 3.4 mmol/L L Today, 04:56 Sodium, (135-145) 137 mmol/L Today, 04:56 Magnesium, (1.6-2.6) 2.1 mg/dL 03/08/23, 08:11 Phosphorus, (2.5-4.9) 3.6 mg/dL 03/08/23, 08:11 BUN, (4-19) 19 mg/dL Today, 04:56 Creatinine, (0.70-1.20) 1.76 mg/dL H Today, 04:56 Glucose, (70-99) 118 mg/dL H Today, 04:56 TSH, (0.300-4.200) 3.410 uIU/mL Today, 04:56 COAG PT, (11.7-14.9) 13.6 SECONDS 02/28/23, 17:47 Pre-Assessment Diagnosis/Proposed Procedure Planned Operative Procedure(s): Esophagogastroduodenoscopy with biopsy Anesthesia History Anesthesia History - hairspring ii inspector: Anesthesia History - hairspring ii inspector Hx Hospitalization Any Problems With Anesthesia No 04/25/25 21:15 Cholinesterase deficiency No 04/25/25 21:15 You/Your Family Experience No 04/25/25 21:15 fever (hyperthermia) with Relationship Recent Exposure to Contagious No 04/25/25 21:15 Disease Does patient have nerve No 04/25/25 21:15 stimulator Patient instructed to have No 04/25/25 21:15 device shut off --Does patient have Pacemaker No 04/26/25 13:32 or ICD? When Was Last Pacemaker Check QUESTION #4 FULL TEXT: You/Your Family Experience fever (hyperthermia) with Anesthesia Last Oral Intake Last Oral intake: Last Oral Intake NPO since 00:00 04/26/25 13:32 Meds taken in AM with sips of Yes 04/26/25 13:32 water? Meds patient instructed to see MAR 04/26/25 13:32 take am of surgery PONV PONV - hairspring ii inspector: PONV - hairspring ii inspector Female HX of Motion Sickness HX of N/V After Surgery Non-Smoker Duration of Surgery greater than 60 minutes Number of Risk Factors PONV Score Height & Weight Height & Weight: Anesthesia: Height & Weight Height 5 ft 3 in 04/26/25 13:32 Weight: 93.922 kg 04/26/25 13:32 Body Mass Index (BMI) 36.6 04/26/25 13:32 Respiratory Assessment Respiratory Assessment - hairspring ii inspector: Respiratory Tract Infection Hx - hairspring ii inspector Hx Respiratory Tract Infection No 04/25/25 21:15 STOP Sleep Apnea STOP Sleep Apnea - hairspring ii inspector: STOP Sleep Apnea - hairspring ii inspector Hx Hypertension controlled with meds 04/25/25 10:17 Hx Sleep Apnea No 04/22/25 11:12 CPAP BIPAP Do you snore loudly (louder No 04/22/25 11:12 than talking or can be heard Do you often feel tired/ No 04/22/25 11:12 fatigued/ sleepy during daytime? Has anyone observed you stop No 04/22/25 11:12 breathing during sleep? STOP Results Negative 04/22/25 11:12 QUESTION #5 FULL TEXT : Do you snore loudly (louder than talking or can be heard through closed doors)? Tobacco Use History Tobacco Use History - hairspring ii inspector: Tobacco Use History - hairspring ii inspector Tobacco Use Smoking Status Never smoker 04/22/25 11:12 Hx Tobacco Use No 04/22/25 11:12 Years Smoking Packs Smoked per Day Smoking Cessation Date was within the last 15 years Hx Smoking Cessation Date Hx Smoking Cessation Counseling Hematologic Medial History Hematologic Hx - hairspring ii inspector: Hematologic Medical Hx - slabber light Hx of Blood Transfusion No 04/22/25 11:12 Hx of Transfusion in last 3 No 04/22/25 11:12 Months Date of Last Transfusion (if within last 3 months) Ever experience any problems No 04/22/25 11:12 with transfusion(s)? Specify any problems Hx of Preganancy in last 3 No 04/22/25 11:12 Months Nurse Filling Out Transfusion TCLEVIDEN 04/22/25 11:12 & Questions: Date: 04/22/25 04/22/25 11:12 Time: 11:33 04/22/25 11:12 Patient unable to answer at this time (ie. confused, unrespo /Reproduction History /Reproductive History - hairspring ii inspector: /Reproductive Hx- hairspring ii inspector Hx Now No 04/25/25 21:15 Gestational Age (in weeks): EDC: Hx Hx Para Hx Section SAB No 04/25/25 21:15 Does the father of the baby or his family experience fever w Father of the baby Malignant Hypertension history comment Active Medications Active Medications: Current Medications Generic Name Dose Route Start Last Admin Trade Name Freq PRN Reason Stop Dose Admin Acetaminophen 650 mg 04/22/25 11:12 Acetaminophen 325 Mg Tablet PO Q6H PRN PRN Pain 1-10 Or Fever >100.7 Atorvastatin Calcium 80 mg 04/22/25 22:00 04/25/25 21:10 Atorvastatin Calcium 80 Mg Tablet PO 80 mg QHS MELINDA Administration Buspirone HCl 5 mg 04/22/25 14:00 04/26/25 05:35 Buspirone 5 Mg Tablet PO 5 mg TID MELINDA Administration Citalopram Hydrobromide 20 mg 12/20/25 10:00 04/26/25 08:20 Citalopram 20 Mg Tablet PO 20 mg DAILY [facility] Administration Clopidogrel Bisulfate 75 mg 04/23/25 10:00 04/26/25 08:20 Clopidogrel Bisulfate 75 Mg Tablet PO 75 mg DAILY [facility] Administration Enoxaparin Sodium 30 mg 04/27/25 10:00 Enoxaparin 30 Mg/0.3 Ml Syringe SC DAILY [facility] Furosemide 40 mg 04/22/25 18:00 04/26/25 08:20 Furosemide 40 Mg Tablet PO 40 mg BIDLX [facility] Administration Protocol Sodium Chloride 250 mls @ 15 mls/hr 04/22/25 11:19 IV .[id number] PRN Saline Flush Sodium Chloride 250 mls @ 15 mls/hr 04/22/25 11:19 IV .[id number] PRN Additional IVPB Infusion Lactated Ringer's 1,000 mls @ 15 mls/hr 04/26/25 14:15 04/26/25 14:15 IV 15 mls/hr .Q48H [facility] Administration Levothyroxine Sodium 100 mcg 04/23/25 06:00 04/26/25 05:35 Levothyroxine 100 Mcg Tablet PO 100 mcg DAILY@0600 [facility] Administration Metoprolol Tartrate 25 mg 04/22/25 12:30 04/26/25 08:20 Metoprolol Tartrate 25 Mg Tablet PO 25 mg Q12 [facility] Administration Protocol Morphine Sulfate 2 - 4 mg 04/22/25 11:12 Morphine 2 Mg/Ml Syringe IV Q3H PRN PRN Pain Score 6-10 Nitroglycerin 0.4 mg 04/22/25 11:12 Nitroglycerin (Inpatient Use) 0.4 Mg Tab.Subl SL Q5M PRN CARDIAC/CHEST PAIN Ondansetron HCl 4 mg 04/22/25 11:12 04/25/25 06:34 Ondansetron 4 Mg/2 Ml Vial IV 4 mg Q8H PRN PRN Administration NAUSEA/VOMITING Ondansetron HCl 8 mg 04/22/25 12:34 04/24/25 22:45 Ondansetron Odt 4 Mg Tablet PO 8 mg Q8H PRN Administration nausea and vomiting Oxycodone HCl 5 mg 04/22/25 11:12 Oxycodone 5 Mg Tablet PO Q4H PRN PRN Pain Score 4-10 Pantoprazole Sodium 40 mg 04/25/25 10:00 04/26/25 08:19 Pantoprazole Sodium 40 Mg Tablet PO 40 mg BID MELINDA Administration Paroxetine HCl 10 mg 04/23/25 10:00 04/26/25 08:21 Paroxetine 10 Mg Tablet PO 04/27/25 10:01 10 mg DAILY MELINDA Administration Sacubitril/Valsartan 1 each 04/22/25 22:00 04/26/25 08:20 Sacubitril/Valsartan 97-103 Mg Tablet PO 1 each BID MELINDA Administration Sodium Chloride 10 - 40 ml 04/22/25 11:19 04/25/25 06:35 0.9% Saline Lock 10 Ml Syringe IV 10 ml UD PRN Administration SALINE FLUSH Spironolactone 50 mg 04/23/25 10:00 04/26/25 08:21 Spironolactone 50 Mg Tablet PO 50 mg DAILY MELINDA Administration Protocol PFS Medical History CHF (congestive heart failure) (HFpEF) heart failure with preserved ejection fraction Arteriosclerotic coronary artery disease Mitral regurgitation Non-smoker Myocardial infarct Hypertension Obesity Anxiety and depression CKD (chronic kidney disease), stage III Hypothyroidism HLD (hyperlipidemia) CHF (congestive heart failure) Home Medications ?Medication ?Instructions ?Recorded ?Last Taken ?Type rosuvastatin 40 mg tablet 40 mg PO DAILY cholesterol 06/24/23 04/21/25 History clopidogrel 75 mg tablet 75 mg PO DAILY anti platelet #90 02/12/24 03/30/25 Rx tabs spironolactone 50 mg tablet 50 mg PO DAILY 1 month #30 tabs 04/26/24 04/21/25 Rx levothyroxine 100 mcg tablet 100 mcg PO QDAY 08/12/24 03/30/25 History furosemide 40 mg tablet 40 mg PO BID diuretic 02/22/25 04/21/25 History metoprolol tartrate 25 mg tablet 25 mg PO Q12H blood pressure 02/22/25 04/21/25 History sacubitril 97 mg-valsartan 103 mg 1 tab PO BID 02/22/25 04/21/25 History tablet (Entresto) ondansetron 8 mg disintegrating 8 mg PO Q8H PRN nausea and 03/21/25 04/21/25 Rx tablet vomiting #15 tabs buspirone 10 mg tablet 5 mg PO TID 04/22/25 Unknown History buspirone 5 mg tablet 5 mg PO TID 04/22/25 Unknown History citalopram 20 mg tablet 20 mg PO DAILY 04/22/25 Unknown History paroxetine HCl 10 mg tablet 10 mg PO DAILY 04/22/25 04/21/25 History Allergy/AdvReac Type Severity Reaction Status Date / Time amlodipine Allergy Unknown PT UNSURE Verified 04/22/25 07:11 OF REACTION lisinopril AdvReac Intermediate Dry, Verified 04/22/25 07:11 hacking, constant cough atenolol AdvReac Abd Verified 04/22/25 07:11 cramps/diarrhea Family History Mother Heart disease Hypertension CHF (congestive heart failure) Father Heart disease Hypertension CHF (congestive heart failure) CAD (coronary artery disease) Myocardial infarction Surgical History Stented coronary artery (03/03/23) History of carpal tunnel release History of tonsillectomy and adenoidectomy Social History household members: none Smoking Status: Never smoker alcohol intake: never substance use type: does not use Review of Systems (Anesthesia) ROS Narrative System reviewed and no additional complaints, except as documented.
--- NOTE | 2025-04-26 15:15 | EGD_PTH ---
PATIENT: ANDREW MOMIN LOC: MS3 U#:[id number] AGE/SX: 89/F ROOM: [facility] RE04/25/[address]: Dr. Young Phillips DO : 1935 BED: 1 DIS: 04/26/2025 SPEC #: [id number] RECD: 04/26/25 16:20 STATUS: REINA PHILLIPS #: [id number] NASH: 04/26/25 15:[address]: José Pandey DEPT: SURGICAL PATHOLOGY RECD BY: Jose Juarez ENTERED: 04/27/25 10:39 SP TYPE: EGD BIOPSY OT DR: DO Dr. Diana King MD Dr. Tai Chi Kwok, MD Tissues: A - Gastric mucous membrane Procedures: Immunohistochemical Stains Surgery Specimen Level IV HEADER OPERATION: EGD, biopsy PRE-OP DIAGNOSIS: Abdominal pain with nausea and vomiting TISSUE SUBMITTED: A. Gastric body biopsy MICROSCOPIC DIAGNOSIS A. Stomach, body, biopsy: - Chronic gastritis. - IHC negative for H. pylori organisms. MICROSCOPIC DESCRIPTION Slides are reviewed. All matched controls reacted appropriately. These tests were developed and their performance characteristics determined by [facility]. They may not have been cleared or approved by the U.S. Food and Drug Administration. The FDA has determined that such clearance or approval is not necessary. The above immunohistochemical markers are viewed by the Pathologist. GROSS DESCRIPTION A. Received is one container labeled with the patient name and designated Gastric body biopsy. The specimen consists of two irregular fragments of scott tissue, each measure 0.7cm. The specimen is totally submitted in one cassette. MD 04/27/2025 CPT:34960,85510
--- NOTE | 2025-04-26 16:06 | PCM.POST.ANE ---
Anesthesia: Postop Eval I Current Vital Signs Temperature: 97.3 F Pulse Rate: 64 Blood Pressure: 107/47 Respiratory Rate: 16 Pulse Ox: 95 Oxygen Delivery Method: Room Air Assessment Airway patent: Yes Spontaneous unlabored respirations: Yes Mental status: Asleep nausea: No Vomiting: No Anesthesia Complication: No Fluid Hydration Crystalloid volume administer (ml): 400 Total IV fluid infused: 400 Progress Note Anesthesia document: Postop Eval 1 completed: Yes
--- NOTE | 2025-04-26 16:11 | OP.EGD_ITS ---
Patient Name: Eugenia Miranda Procedure Date: 04/26/2025 3:40 PM Date of : 1935 Age: 89 Procedure: Upper GI endoscopy Indications: Epigastric abdominal pain, Iron deficiency anemia, Melena Providers: oJsé Pandey DO Medicines: Monitored Anesthesia Care Patient Profile: This is an 89 year old female. Refer to note in patient chart for documentation of history and physical. Patient has symptoms of acute epigastric abdominal pain. Complications: No immediate complications. Procedure: Pre-Anesthesia Assessment: - Prior to the procedure, a History and Physical was performed, and patient medications and allergies were reviewed. The patient is competent. The risks and benefits of the procedure and the sedation options and risks were discussed with the patient. All questions were answered and informed consent was obtained. Patient identification and proposed procedure were verified by the physician in the pre-procedure area. Mental Status Examination: alert and oriented. Airway Examination: normal oropharyngeal airway and neck mobility. Respiratory Examination: clear to auscultation. CV Examination: normal. Prophylactic Antibiotics: The patient does not require prophylactic antibiotics. Prior Anticoagulants: The patient has taken no anticoagulant or antiplatelet agents. ASA Grade Assessment: II - A patient with mild systemic disease. After reviewing the risks and benefits, the patient was deemed in satisfactory condition to undergo the procedure. The anesthesia plan was to use monitored anesthesia care (MAC). Immediately prior to administration of medications, the patient was re-assessed for adequacy to receive sedatives. The heart rate, respiratory rate, oxygen saturations, blood pressure, adequacy of pulmonary ventilation, and response to care were monitored throughout the procedure. The physical status of the patient was re-assessed after the procedure. After obtaining informed consent, the endoscope was passed under direct vision. Throughout the procedure, the patient's blood pressure, pulse, and oxygen saturations were monitored continuously. The Endoscope was introduced through the mouth, and advanced to the fourth part of the duodenum. Small bowel enteroscopy was deemed necessary. The upper GI endoscopy was accomplished without difficulty. The patient tolerated the procedure well. Scope In: 3:53:35 PM Scope Out: 3:56:58 PM Total Procedure Duration Time 0 hours 3 minutes 23 seconds Findings: No gross lesions were noted in the entire esophagus. Diffuse severe inflammation characterized by erosions, erythema and friability was found in the entire examined stomach. Biopsies were taken with a cold forceps for histology. Verification of patient identification for the specimen was done. Estimated blood loss was minimal. One non-bleeding cratered gastric ulcer with no stigmata of bleeding was found in the gastric body. The lesion was 15 mm in largest dimension. No gross lesions were noted in the entire examined duodenum. Impression: - No gross lesions in the entire esophagus. - Acute gastritis. Biopsied. - Non-bleeding gastric ulcer with no stigmata of bleeding. - No gross lesions in the entire examined duodenum. Recommendation: - [facility]. - Resume regular diet today. - No aspirin, ibuprofen, naproxen, or other non-steroidal anti-inflammatory drugs for 2 weeks. - Repeat upper endoscopy in 3 months for surveillance. - Use Protonix (pantoprazole) 40 mg PO BID for 3 months. Procedure Code(s): --- Professional --- 81727, Small intestinal endoscopy, enteroscopy beyond second portion of duodenum, not including ileum; with biopsy, single or multiple CPT copyright 2021 [employer]. All rights reserved. The codes documented in this report are preliminary and upon director of teacher education review may be revised to meet current compliance requirements. José Pandey DO 04/26/2025 4:10:50 PM This report has been signed electronically. Number of Addenda: 0 Note Initiated On: 04/26/2025 3:40 PM
--- NOTE | 2025-04-26 16:11 | OP.PROVAT_ITS ---
04/26/2025 Neville Serrano MD [address] [place] [address] Re : Upper GI endoscopy procedure for Eugenia Miranda Dear Dr. Serrano This procedure was performed on Saturday, April 26, 2025. My impressions and recommendations are as follows: Impressions : - No gross lesions in the entire esophagus. - Acute gastritis. Biopsied. - Non-bleeding gastric ulcer with no stigmata of bleeding. - No gross lesions in the entire examined duodenum. Recommendations : - [facility] to [facility]. - Resume regular diet today. - No aspirin, ibuprofen, naproxen, or other non-steroidal anti-inflammatory drugs for 2 weeks. - Repeat upper endoscopy in 3 months for surveillance. - Use Protonix (pantoprazole) 40 mg PO BID for 3 months. My findings are described in the full procedure note, which is enclosed. If I can be of further assistance, please feel free to contact me at . Sincerely, José Pandey, 04/26/2025 4:10:50 PM This report has been signed electronically.
--- NOTE | 2025-04-26 16:41 | DCINST_ITS ---
Discharge Instructions DC O2, CPAP, BIPAP needs Home O2 Discharge instructions: No Dressing / Incision Discharge Activity: Return to Normal Activity Weight Bearing Status: Full weight bearing Follow Up Care Test Results: Test results from this visit will be discussed in further detail at your follow- up appointment, if applicable. Discharge Plan Admission Admit Date/Time: 04/25/25 18:10 Primary Reason for Your Visit: Gastritis, stomach ulcer Attending Provider: Young Phillips Primary Care Provider: Neville Serrano Chi Consulting Providers: Diana Majano; Friend,José Instructions Patient Instructions: Abdominal Pain, Anxiety Disorders Meds Additional Instructions / Restrictions: Do not take any ibuprofen or Aleve Take Tylenol for pain Discharge Orders/Prescriptions Prescriptions: New pantoprazole 40 mg Tablet,Delayed Release (Dr/Ec) 40 mg PO BID Qty: 60 0RF Continued rosuvastatin 40 mg tablet 40 mg PO DAILY levothyroxine 100 mcg tablet 100 mcg PO QDAY Patient Comments: [NO ORIGINAL SIG] sacubitril-valsartan [Entresto] 97-103 mg tablet 1 tab PO BID Patient Comments: [NO ORIGINAL SIG] metoprolol tartrate 25 mg tablet 25 mg PO Q12H furosemide 40 mg tablet 40 mg PO BID spironolactone 50 mg tablet 50 mg PO DAILY 30 Days Qty: 30 2RF Rx Instructions: Hold for serum potassium more than 5.0 ondansetron 8 mg tablet,disintegrating 8 mg PO Q8H PRN (Reason: nausea and vomiting) Qty: 15 0RF buspirone 5 mg tablet 5 mg PO TID buspirone 10 mg tablet 5 mg PO TID citalopram 20 mg tablet 20 mg PO DAILY paroxetine HCl 10 mg tablet 10 mg PO DAILY Patient Comments: Dr. Serrano is weaning her off. She is taking one tablet (10mg) daily until Friday then she stops it. clopidogrel 75 mg tablet 75 mg PO DAILY Qty: 90 3RF Referrals / Follow Up: Neville Serrano Chi, MD [Primary Care Provider, Geriatrics] - Within 2 Weeks Disposition Disposition (needs filled in before D/C Order can be placed): Home, Self Care
--- NOTE | 2025-04-26 17:07 | DS.PCM_ITS ---
Providers Date of Admission: 04/25/25 Date of Discharge: 04/26/25 Primary Care Physician: Dr. Neville Serrano MD Consultations 04/25/25 10:52 Consult: Gastroenterology Routine Consulting Provider: José Pandey Reason for Consult: Abdominal pain EMERGENT Consult: No MD Notified: Yes Date Notified: 04/25/25 Time Notified: 11:09 Method of Notification: Text Reason For Visit: INTRACTABLE NAUSEA AND VOMITING, ABDOMINAL PAIN Diagnosis Discharge Diagnosis (1) Abdominal pain: Status: Acute Code(s): R10.9 - Unspecified abdominal pain Plan 1. Abdominal pain with nausea and vomiting-secondary to gastric ulcer and gastritis #2 coronary artery disease-it appears stable at this time, patient is on Plavix and metoprolol #3 essential hypertension-patient is on metoprolol #4 hypothyroidism-patient is on Synthroid #5 chronic anxiety and depression-patient is on Lexapro and BuSpar #6 acute kidney injury Total clinical time spent by myself addressing the patient's medical issues, reviewing all of her data, and collaborating with patient's care team: 35 minutes Medications at Discharge Home Medications rosuvastatin 40 mg tablet 40 mg PO DAILY cholesterol 06/24/23 clopidogrel 75 mg tablet 75 mg PO DAILY anti platelet #90 tabs 02/12/24 spironolactone 50 mg tablet 50 mg PO DAILY 1 month #30 tabs 04/26/24 levothyroxine 100 mcg tablet 100 mcg PO QDAY 08/12/24 furosemide 40 mg tablet 40 mg PO BID diuretic 02/22/25 metoprolol tartrate 25 mg tablet 25 mg PO Q12H blood pressure 02/22/25 sacubitril 97 mg-valsartan 103 mg tablet (Entresto) 1 tab PO BID 02/22/25 ondansetron 8 mg disintegrating tablet 8 mg PO Q8H PRN nausea and vomiting #15 tabs 03/21/25 buspirone 10 mg tablet 5 mg PO TID 04/22/25 buspirone 5 mg tablet 5 mg PO TID 04/22/25 citalopram 20 mg tablet 20 mg PO DAILY 04/22/25 paroxetine HCl 10 mg tablet 10 mg PO DAILY 04/22/25 pantoprazole 40 mg tablet,delayed release 40 mg PO BID #60 tabs 04/26/25 Hospital Course Operations None Procedures EGD Summary of Care Provided Minutes Spent on Discharge: 31 Hospital Course: This 89-year-old white female seen in the emergency room at [facility] with complaints of upper abdominal pain and nausea and vomiting, this has been going on for several weeks according to documentation in the ER. Patient denied seeing any blood in her stools or any melena. Workup in the emergency room including labs was essentially unremarkable except for a slightly elevated creatinine. Patient was given nausea medication but still remained nauseous. CT of the abdomen and pelvis was performed which did not show any abnormality. Patient was placed in observation status initially on MedSurg 3, there were vomiting and nausea stabilized but she still complained of abdominal discomfort. I had gastroenterology see the patient and on 04/26/2025 they performed an EGD which showed gastritis and a nonbleeding gastric ulcer. Patient was treated with PPI. On 04/26/2025, patient was seen and examined: On examination she appeared in good health and spirits, she does not appear to be in any distress. Vital signs as documented. Skin warm and dry and without overt rashes. Neck without JVD, thyroid appears normal, trachea is midline, neck is supple. Lungs clear, normal air movement was noted. Heart exam notable for regular rhythm, normal sounds and absence of murmurs, rubs or gallops. Abdomen unremarkable and without evidence of organomegaly, masses, or abdominal aortic enlargement, bowel sounds are present in all 4 quadrants, no abdominal tenderness was noted. Extremities nonedematous, no cyanosis was noted, no clubbing was noted. Neuro: Cranial nerves II through XII are grossly intact, no focal motor deficits were noted, sensation to light touch and pinprick is intact, motor exam 5/5 throughout. Psych: Patient is alert and oriented x3, she does not appear anxious or depressed, she does not appear agitated. It was noted that the patient's creatinine had elevated during her hospitalization, she was instructed to follow-up with Dr. Serrano on 05/02/2025 and his office to have her renal functions rechecked, I also spoke personally to Dr. Serrano on the phone about this matter, and finally the patient was instructed to hold her spironolactone till she follows up with Dr. Serrano. Weight / BMI Weight Weight: 93.922 kg Body Mass Index (BMI) 36.6 ABG / Lab / Microbiology Data 04/26/25 04:56 04/26/25 04:56 Laboratory: Laboratory Results - last 24 hr 04/26/25 04:56: WBC 6.9, RBC 4.11 L, Hgb 12.1, Hct 36.6 L, MCV 89.1, MCH 29.4, MCHC 33.1, RDW Std Deviation 41.3, RDW Coeff of Danelle 12.6, Plt Count 227, MPV 10.4, Immature Gran % (Auto) 0.400, Neut % (Auto) 55.5, Lymph % (Auto) 31.8, [place] % (Auto) 8.8, Eos % (Auto) 2.8, Baso % (Auto) 0.7, Absolute Neuts (auto) 3.8, Absolute Lymphs (auto) 2.18, Nucleated RBC % 0, Sodium 137, Potassium 3.4 L , Chloride 101, Carbon Dioxide 24.3, Anion Gap 12, BUN 19, Creatinine 1.76 H, E stim Creat Clear Calc 23.61 L, Est GFR (MDRD) Non-Af 27 L, BUN/Creatinine Ratio 11.0, Glucose 118 H, Calcium 8.6, TSH 3.410 D/C Instructions Weight Bearing Status: Full weight bearing DC O2, CPAP, BIPAP Needs Home O2 Discharge instructions: No Meaningful Use Info Meaningful Use Meaningful Use Diagnoses (Choose all that apply): None applicable Discharge Plan Admission Admit Date/Time: 04/25/25 18:10 Primary Reason for Your Visit: Gastritis, stomach ulcer Attending Provider: Young Phillips Primary Care Provider: Neville Serrano Chi Consulting Providers: Diana Majano; Friend,José Instructions Patient Instructions: Abdominal Pain, Anxiety Disorders Meds Additional Instructions / Restrictions: Do not take any ibuprofen or Aleve Take Tylenol for pain Stop your spironolactone until you follow-up with Dr. Serrano Discharge Orders/Prescriptions Prescriptions: New pantoprazole 40 mg Tablet,Delayed Release (Dr/Ec) 40 mg PO BID Qty: 60 0RF Continued rosuvastatin 40 mg tablet 40 mg PO DAILY levothyroxine 100 mcg tablet 100 mcg PO QDAY Patient Comments: [NO ORIGINAL SIG] sacubitril-valsartan [Entresto] 97-103 mg tablet 1 tab PO BID Patient Comments: [NO ORIGINAL SIG] metoprolol tartrate 25 mg tablet 25 mg PO Q12H furosemide 40 mg tablet 40 mg PO BID spironolactone 50 mg tablet 50 mg PO DAILY 30 Days Qty: 30 2RF Rx Instructions: Hold for serum potassium more than 5.0 ondansetron 8 mg tablet,disintegrating 8 mg PO Q8H PRN (Reason: nausea and vomiting) Qty: 15 0RF buspirone 5 mg tablet 5 mg PO TID buspirone 10 mg tablet 5 mg PO TID citalopram 20 mg tablet 20 mg PO DAILY paroxetine HCl 10 mg tablet 10 mg PO DAILY Patient Comments: Dr. Serrano is weaning her off. She is taking one tablet (10mg) daily until Friday then she stops it. clopidogrel 75 mg tablet 75 mg PO DAILY Qty: 90 3RF Referrals / Follow Up: Neville Serrano Chi, MD [Primary Care Provider, Geriatrics] - See Referral Note Referral Note: Next Friday, you will need repeat lab work to check your kidney function Disposition Disposition (needs filled in before D/C Order can be placed): Home, Self Care Charges/Coding Visit Charges Inpatient E&M: 32396 Disch Hosp >30min
--- NOTE | 2025-04-26 18:20 | PCM.POSTANE2 ---
Anesthesia Postop Eval I Sum Postop Eval Completion status Anesthesia document: Postop Eval 1 completed: Yes Anesthesia Postop Eval I Summary Anesthesia Postop Eval I Summary: Anesthesia Postop Eval I: Assessment Summary Airway patent Yes 04/26/25 16:07 [email or web address] Spontaneous unlabored Yes 04/26/25 16:07 [email or web address] respirations Mental status Asleep 04/26/25 16:07 [email or web address] nausea No 04/26/25 16:07 [email or web address] Vomiting No 04/26/25 16:07 [email or web address] Anesthesia Postop Eval I: Fluid Summary Crystalloid volume administer 400 04/26/25 16:07 [email or web address] (ml) Colloids volume administered ( ml) Blood Product volume administered (ml) Total IV fluid infused 400 04/26/25 16:07 [email or web address] Anesthesia Postop Eval I: Summary Notes Anesthesia Complication No 04/26/25 16:07 [email or web address] Anesthesia Complication Comment: Post-operative progress note Anesthesia: Postop Eval II Evaluation Mental status: Awake and Calm Pain Level: 0 nausea: No Vomiting: No Complications Anesthesia Complication: No
== END 2025-04-26 18:27 | disposition home or self-care (01) | DRG 392 ==
LOC: ED 10:30 → MS3 10:58
PROVIDERS: Anesthesiology; Internal Medicine Gastroenterology; Admitting Provider Student in an Organized Health Care Education/Training Program; Emergency Provider Emergency Medicine; PCP Family Medicine Geriatric Medicine; Visit Provider Internal Medicine
PROC: 0DJ08ZZ Inspection of Upper Intestinal Tract, Via Natural or Artificial Opening Endoscopic (ICD-10-PCS; CPT 43235; principal; 2025-04-26 15:10)
DX: K29.50 Unspecified chronic gastritis without bleeding (principal); N17.9 Acute kidney failure, unspecified; I13.0 Hypertensive heart and chronic kidney disease with heart failure and stage 1 through stage 4 chronic kidney disease, or unspecified chronic kidney disease; I50.32 Chronic diastolic (congestive) heart failure; N18.30 Chronic kidney disease, stage 3 unspecified; E03.9 Hypothyroidism, unspecified; F32.A Depression, unspecified; D50.9 Iron deficiency anemia, unspecified; K25.9 Gastric ulcer, unspecified as acute or chronic, without hemorrhage or perforation; E78.5 Hyperlipidemia, unspecified; F41.9 Anxiety disorder, unspecified; I25.2 Old myocardial infarction; I25.10 Atherosclerotic heart disease of native coronary artery without angina pectoris; Z95.5 Presence of coronary angioplasty implant and graft; Z79.02 Long term (current) use of antithrombotics/antiplatelets; Z79.890 Hormone replacement therapy; Z79.899 Other long term (current) drug therapy
CPT/HCPCS: 36415; 74177; 80048; 80053; 81001; 83690; 84443; 85025; 88305; 88342; 97162; 97164; 97165; 97168; 99285; A4216; J2405

== ENCOUNTER → 2025-05-02 | Outpatient (CLI) | payer MEDICARE, OTHER, SELFPAY ==
[2025-05-02 11:57] LABS: Anion Gap 11 (7-18); BUN 37 mg/dL (4-19); BUN/Creat Ratio 21.0 RATIO (10-20); Calcium,Total 8.8 mg/dL (7.6-11.0); Carbon Dioxide 27.3 mmol/L (20.0-29.0); Chloride 99 mmol/L (96-106); Glucose 129 mg/dL (70-99); Potassium 3.7 mmol/L (3.5-5.1)
== END | disposition home or self-care (01) ==
LOC: LAB 10:36
PROVIDERS: PCP Family Medicine Geriatric Medicine; Referring Provider Family Medicine Geriatric Medicine; Visit Provider Family Medicine Geriatric Medicine
DX: I10 Essential (primary) hypertension (principal)
CPT/HCPCS: 36415; 80048

== ENCOUNTER → 2025-05-03 | Outpatient (CLI) | payer MEDICARE, OTHER, SELFPAY ==
[2025-05-03 12:09] LABS: Anion Gap 10 (7-18); BUN 34 mg/dL (4-19); BUN/Creat Ratio 20.6 RATIO (10-20); Calcium,Total 9.2 mg/dL (7.6-11.0); Carbon Dioxide 27.8 mmol/L (20.0-29.0); Chloride 100 mmol/L (96-106); Glucose 113 mg/dL (70-99); Potassium 3.6 mmol/L (3.5-5.1)
[2025-05-03 19:38] LABS: Xtra Tube Kwok EXTRA TUBE
== END | disposition home or self-care (01) ==
LOC: POLAB3 11:37
PROVIDERS: PCP Family Medicine Geriatric Medicine; Visit Provider Family Medicine Geriatric Medicine
DX: N17.9 Acute kidney failure, unspecified (principal)
CPT/HCPCS: 36415; 80048